=== PATIENT | male | born 1970 | race Caucasian/White ===

== ENCOUNTER 2016-04-15 22:06 | Inpatient (IN) | payer BC, MEDICARE, OTHER ==
--- NOTE | 2016-04-15 22:15 | PDOC ---
History of Present Illness - General Chief Complaint: Cold Symptoms Stated Complaint: FEVER,MALAISE History Source: Patient Exam Limitations: No Limitations - History of Present Illness Initial Comments: 04/15/16 22:28 45 yo male quit drinking a week or two ago, has had a fever of 101 to 103 for the past few days with cough and congestion, body aches and nasal congestion. did not get a flu shot this year. Also complains of waking up drenched in sweat and shivering the past two nights. Tonight he had a bit of a headache and a right earache with ringing in the ear. Timing/Duration: 1 week Severity: moderate Modifying Factors: improves with: other (motrin helps alot.) Associated Symptoms: reports: cough, diaphoresis, fever/chills, headaches, malaise, weakness Past History - Past Medical History Allergies/Adverse Reactions: Allergies Allergy/AdvReac Type Severity Reaction Status Date / Time No Known Allergies Allergy Verified 02/03/16 19:04 Home Medications: Ambulatory Orders Ibuprofen 600 mg PO PRN PRN 04/15/16 Anemia: No Asthma: No Cancer: No Cardiac Disorders: No CVA: No COPD: No CHF: No Dementia: No Diabetes: No GI Disorders: No Disorders: No HTN: Yes Hypercholesterolemia: No Kidney Stones: No Liver Disease: No Suicide Attempt (Hx): No Seizures: No Thyroid Disease: No - Surgical History Abdominal Surgery: Yes (LAP BAND) Appendectomy: No Cardiac Surgery: No Cholecystectomy: No GI Surgery: Yes (hernia repair) Lung Surgery: No Neurologic Surgery: No Orthopedic Surgery: Yes (ARTHROSCOPY LEFT SHOULDER) - Reproductive History Testicular Surgery: No - Immunization History Immunization Up to Date: Yes - Psycho/Social/Smoking Cessation Hx Anxiety: Yes Suicidal Ideation: No Smoking Status: No Smoking History: Never smoked Have you smoked in the past 12 months: Yes Number of Cigarettes Smoked Daily: 0 Cigars Per Day: 0 'Breaking Loose' booklet given: 08/04/15 Hx Alcohol Use: Yes Drug/Substance Use Hx: No Substance Use Type: Alcohol Hx Substance Use Treatment: Yes Review of Systems - Review of Systems Constitutional: Yes: See HPI HEENTM: Yes: See HPI, Ear Pain, Other (scleral icterus and jaundice which is improving since he quit drinking) Respiratory: Yes: See HPI, Cough Cardiac (ROS): No: Symptoms Reported ABD/GI: No: Symptoms Reported : No: Symptoms Reported Musculoskeletal: Yes: See HPI Neurological: No: Symptoms reported Psychiatric: No: Anxiety, Depression Endocrine: No: Symptoms Reported Hematologic/Lymphatic: No: Symptoms Reported All Other Systems: Reviewed and Negative *Physical Exam - Vital Signs Last Vital Signs Temp Pulse Resp BP Pulse Ox 99.7 F H 16 L 16 121/75 98 04/15/16 22:10 04/15/16 22:10 04/15/16 22:10 04/15/16 22:10 04/15/16 22:10 - Physical Exam Comments: 04/15/16 22:32 sweaty, cool clammy skin, jaundice and scleral icterus. General Appearance: No: Apparent Distress HEENT: positive: Pharynx Normal, Pharyngeal Erythema. negative: Tonsillar Exudate Neck: positive: Trachea midline, Supple Respiratory/Chest: positive: Lungs Clear, Normal Breath Sounds Cardiovascular: positive: Regular Rhythm, Regular Rate. negative: JVD Gastrointestinal/Abdominal: positive: Normal Bowel Sounds, Flat, Soft, Hepatomegaly. 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 negative: Facial Droop, Confused ED Treatment Course - LABORATORY CBC & Chemistry Diagram: 04/15/16 22:20 04/15/16 22:20 Medical Decision Making - Medical Decision Making Clinical indication: Pancreatitis. Status post lap band in 2008. Findings: The lung bases are clear. The liver has a slightly nodular contour which may indicate parenchymal disease. Cholelithiasis is noted. The gallbladder is otherwise suboptimally distended. The spleen is enlarged. The pancreas has a normal appearance. No peripancreatic inflammatory changes are seen. The adrenal glands are unremarkable. Focal hypoattenuation is noted in the mid left kidney best seen on delayed postcontrast images with stranding and infiltration in the perinephric fat. Left renal cysts also noted. The kidneys have an otherwise normal in appearance and enhance symmetrically. There is no evidence of urinary tract obstruction. The gastrointestinal tract does not appear obstructed. No thickened or dilated bowel is seen. A left and appears to be in satisfactory position. There is no mesenteric infiltration. Increased number of tortuous vessels is noted in the omentum which may represent portosystemic shunts are normal appendix noted. There is a small amount of ascites in the pelvis. The urinary bladder appears thickwalled despite suboptimal distention. The prostate is unremarkable. A small fat-containing right inguinal hernia is noted. No abdominal or pelvic adenopathy is seen. No lytic or blastic destructive osseous lesions are seen. Impression: Left and in satisfactory position. Slightly nodular contour of liver with splenomegaly and increased number of tortuous vessels in the omentum. These findings are indicative of cirrhosis and portal hypertension. Cholelithiasis noted. Small amount of ascites noted in the pelvis. Area of focal decreased attenuation in the mid left kidney as above with stranding and infiltration in the perinephric fat. This appearance is consistent with focal pyelonephritis. Correlate for left CV angle tenderness. THIS DOCUMENT HAS BEEN ELECTRONICALLY SIGNED Neil Olsen M.D. 04/16/2016 00:30 JACKI Cuellar Please call Imaging [facility]atering Cook [phone]) with questions. 04/16/16 00:57 04/16/16 01:[address] Silva, will admit to ICU for Sepsis, Cholangitis, Pyelonephritis Will Start Zosyn and obtain urine, also a small dose of ativan and another liter of fluid. *DC/Admit/Observation/Transfer Diagnosis at time of Disposition: Alcoholism, Pyelonephritis, Hyponatremia, Cholangitis Cirrhosis Qualifiers: Hepatic cirrhosis type: alcoholic cirrhosis Ascites presence: with ascites Qualified Code(s): K70.31 - Alcoholic cirrhosis of liver with ascites Sepsis Qualifiers: Sepsis type: sepsis due to unspecified organism Qualified Code(s): A41.9 - Sepsis, unspecified organism Pancreatitis Qualifiers: Chronicity: acute Pancreatitis type: biliary Qualified Code(s): K85.1 - Biliary acute pancreatitis - Discharge Dispostion Condition at time of disposition: Improved Admit: Yes - Referrals Referrals: Neil Rush MD [Primary Care Provider] -
[2016-04-15] MEDS ORDERED: SODIUM CHLORIDE 1,000 ML IV STA ×2 (22:17→23:19)
[2016-04-15] MEDS ORDERED: KETOROLAC TROMETHAMINE 30 MG/1 ML VIAL IVPUSH ONE (22:18)
[2016-04-15] MEDS ORDERED: KETOROLAC TROMETHAMINE 30 MG/1 ML VIAL ONE (22:32)
[2016-04-15 22:49] LABS: MCH 33.4 pg (25.7-33.7); MCHC 33.5 g/dl (32.0-35.9); MEAN CELL VOLUME 99.5 fl (80-96); MEAN PLT VOLUME 9.4 fl (7.5-11.1); PLATELET COUNT 145 K/MM3 (134-434); RDW 14.5 % (11.9-15.9); WHITE BLOOD COUNT 10.6 K/mm3 (4.0-10.0)
[2016-04-15 23:04] LABS: INR 1.9 (0.82-1.09); PROTHROMBIN TIME (PATIENT) 20.7 SEC (10.2-13.0)
[2016-04-15 23:09] LABS: ALBUMIN 2.4 g/dl (3.5-5.0); ALK PHOS 134 U/L (32-92); ANION GAP 9 (8-16); BILIRUBIN,TOTAL 3.7 mg/dl (0.2-1.0); CALCIUM 7.7 mg/dl (8.4-10.2); CO2 23 mmol/L (22-28); CREATININE 0.8 mg/dl (0.6-1.3); GLUCOSE,RANDOM 143 mg/dl (74-106); SGOT/AST 144 U/L (10-42); SGPT/ALT 60 U/L (10-40); TOT PROT 6.2 g/dl (6.4-8.3)
[2016-04-15] MEDS ORDERED: POTASSIUM CHLORIDE TABS 20 MEQ TABLET.ER (FP) PO ONE ×2 (23:19→23:20)
[2016-04-16 00:03] LABS: METAMYELOCYTE 3 % (0-2); SMUDGE CELLS MODERATE
[2016-04-16 00:04] LABS: ANISOCYTOSIS 2+; PLATELET COMMENT2 SLT PLT CLUMPING; PLATELET ESTIMATE ADEQUATE (NORMAL); TEAR DROP CELLS 1+
[2016-04-16] MEDS ORDERED: PIPERACILLIN/TAZOB 3.375 GM/50 ML PRE-DOCKED IV ONE (01:02)
[2016-04-16] MEDS ORDERED: PIPERACILLIN/TAZOBACTAM 3.375 GM VIAL IVPB ONE (01:06)
[2016-04-16] MEDS ORDERED: SODIUM CHLORIDE 1,000 ML IV SCH (01:30)
[2016-04-16] MEDS ORDERED: HEPARIN NA (PORCINE) 5,000 UNITS/ML 1ML VIAL SQ SCH (02:00)
[2016-04-16 02:09] LABS: URINE APPEARANCE CLEAR; URINE BILIRUBIN NEGATIVE (NEGATIVE); URINE COLOR YELLOW; URINE GLUCOSE (UA) NEGATIVE (NEGATIVE); URINE KETONE NEGATIVE (NEGATIVE); URINE NITRITE NEGATIVE (NEGATIVE); URINE PROTEIN NEGATIVE (NEGATIVE); URINE UROBILINOGEN 4.0 E.U/dl E.U./dl (0.2-1.0)
[2016-04-16 02:11] LABS: URINE BLOOD 2+ (NEGATIVE); URINE LEUK ESTERASE 3+ (NEGATIVE)
[2016-04-16 02:15] LABS: URINE BACTERIA FEW /hpf (NONE SEEN); URINE RBC 3 /hpf (0-3); URINE WBC 80 /hpf (3-5)
[2016-04-16 03:01] VITALS: BMI 34.0
[2016-04-16] MEDS ORDERED: PNEUMOC 13-VAL CONJ-DIP CRM/PF 0.5 ML DISP.SYRIN IM ONE (03:09)
[2016-04-16] MEDS ORDERED: HEPARIN NA (PORCINE) 5,000 UNITS/ML 1ML VIAL ONE (03:15)
[2016-04-16] MEDS: ACETAMINOPHEN 325 MG TABLET (FP) PO PRN ×2 (03:30→14:29)
--- NOTE | 2016-04-16 03:31 | HP ---
CHIEF COMPLAINT: fever, chills, sweats PCP: HISTORY OF PRESENT ILLNESS: This is a 45 year old male with a past medical history of HTN (no longer on meds ), lap band, ventral hernia reapir, L shoulder arthroscopy who presented to the ED at [facility] with fever 101-103 x several days with cough, congestion, headache. Denies dysuria, + urgency, decreased urine flow. Denies N/V/D. Upon exam, pt with c/o persistent headache. ER course was notable for: (1) WBC 10.6, Na 121, K 3.0 (2) lactic acid 3.055 (3) elevated LFTs, lipase 111 Recent Travel: pt denies PAST MEDICAL HISTORY: HTN, formerly on norvasc PAST SURGICAL HISTORY: lap band 2010 ventral hernia repair with mesh L shoulder arthroscopy Social History: Smoking: Pt denies Alcohol: Pt reports 12 pack heineken daily or a few beers with a fifth of vodka daily, quit 3 weeks ago, multiple attempts to quit in pastwith inpatient hospitalizations Drugs: pt denies Family History: mother alive and well father with liver disease/ETOH 1 sister, 1 brother no PMH, alive and well. Allergies No Known Allergies Allergy (Verified 02/03/16 19:04) HOME MEDICATIONS: 3 Medication Instructions Recorded Ibuprofen 600 mg PO PRN PRN 04/15/16 REVIEW OF SYSTEMS CONSTITUTIONAL: Present: fever, chills, diaphoresis, generalized weakness, malaise Absent: loss of appetite, weight change HEENT: Absent: rhinorrhea, nasal congestion, throat pain, throat swelling, difficulty swallowing, mouth swelling, ear pain, eye pain, visual changes CARDIOVASCULAR: Absent: chest pain, syncope, palpitations, irregular heart rate, lightheadedness , peripheral edema RESPIRATORY: Present: cough Absent: shortness of breath, dyspnea with exertion, orthopnea, wheezing, stridor , hemoptysis GASTROINTESTINAL: Absent: abdominal pain, abdominal distension, nausea, vomiting, diarrhea, constipation, melena, hematochezia GENITOURINARY: Present: urgency, hesitancy Absent: dysuria, frequency, hematuria, flank pain, genital pain MUSCULOSKELETAL: Absent: myalgia, arthralgia, joint swelling, back pain, neck pain SKIN: Absent: rash, itching, pallor HEMATOLOGIC/IMMUNOLOGIC: Absent: easy bleeding, easy bruising, lymphadenopathy, frequent infections ENDOCRINE: Absent: unexplained weight gain, unexplained weight loss, heat intolerance, cold intolerance NEUROLOGIC: Absent: headache, focal weakness or paresthesias, dizziness, unsteady gait, seizure, mental status changes, bladder or bowel incontinence PSYCHIATRIC: Absent: anxiety, depression, suicidal or homicidal ideation, hallucinations. PHYSICAL EXAMINATION Vital Signs - 24 hr 3 04/15/16 04/16/16 04/16/16 22:10 01:15 02:57 Temperature 99.7 F H 98.1 F 98.6 F Pulse Rate 16 L 92 H Pulse Rate [ 86 Radial] Respiratory 16 16 18 Rate Blood Pressure 121/75 99/65 Blood Pressure 102/63 [Arm] O2 Sat by Pulse 98 96 Oximetry (%) 3 04/16/16 04/16/16 03:30 04:30 Temperature Pulse Rate 88 Pulse Rate [ Radial] Respiratory 18 18 Rate Blood Pressure 83/54 Blood Pressure [Arm] O2 Sat by Pulse 96 Oximetry (%) GENERAL: Awake, alert, and fully oriented, in no acute distress. HEAD: Normal with no signs of trauma. EYES: Pupils equal, round and reactive to light, extraocular movements intact, sclera anicteric, conjunctiva clear. No lid lag. EARS, NOSE, THROAT: Ears normal, nares patent, oropharynx clear without exudates. Moist mucous membranes. NECK: Normal range of motion, supple without lymphadenopathy, JVD, or masses. LUNGS: Breath sounds equal, clear to auscultation bilaterally. No wheezes, and no crackles. No accessory muscle use. HEART: Regular rate and rhythm, normal S1 and S2 without murmur, rub or gallop. ABDOMEN: Soft, nontender, not distended, normoactive bowel sounds, no guarding, no rebound, no masses. No hepatomegaly or splenomegaly. MUSCULOSKELETAL: Normal range of motion at all joints. No bony deformities or tenderness. No CVA tenderness. UPPER EXTREMITIES: 2+ pulses, warm, well-perfused. No cyanosis. No clubbing. Cap refill <2 seconds. No peripheral edema. LOWER EXTREMITIES: 2+ pulses, warm, well-perfused. No calf tenderness. No peripheral edema. NEUROLOGICAL: Cranial nerves II-XII intact. Normal speech. Normal gait. PSYCHIATRIC: Cooperative. Good eye contact. Appropriate mood and affect. SKIN: Warm, dry, normal turgor, no rashes or lesions noted. Laboratory Results - last 24 hr 3 04/15/16 04/15/16 04/15/16 22:20 22:20 22:20 WBC 10.6 H RBC 3.65 L Hgb 12.2 D Hct 36.3 D MCV 99.5 H MCHC 33.5 RDW 14.5 D Plt Count 145 D MPV 9.4 D Neutrophils % 37.0 L D Lymphocytes % 13.0 D Monocytes % 26.0 H D Band Neutrophils 17.0 H Metamyelocytes 3 H Reactive Lymphocytes 4 Smudge Cells Moderate Platelet Estimate Adequate Platelet Comment Slt plt clumping Anisocytosis 2+ Tear Drop Cells 1+ INR 1.90 H Sodium 121 L* Potassium 3.0 L Chloride 89 L Carbon Dioxide 23 Anion Gap 9 BUN 8 Creatinine 0.8 D Creat Clearance w eGFR > 60 Random Glucose 143 H D Lactic Acid Calcium 7.7 L--corrected 9.0 Magnesium Total Bilirubin 3.7 H D Direct Bilirubin AST 144 H D ALT 60 H D Alkaline Phosphatase 134 H D Total Protein 6.2 L D Albumin 2.4 L D Lipase Urine Color Urine Appearance Urine pH Ur Specific [place] Urine Protein Urine Glucose (UA) Urine Ketones Urine Blood Urine Nitrite Urine Bilirubin Urine Urobilinogen Ur Leukocyte Esterase Urine RBC Urine WBC Ur Epithelial Cells Urine Bacteria Alcohol, Quantitative 3 04/15/16 04/15/16 04/16/16 04/16/16 22:20 22:20 01:00 01:25 WBC RBC Hgb Hct MCV MCHC RDW Plt Count MPV Neutrophils % Lymphocytes % Monocytes % Band Neutrophils Metamyelocytes Reactive Lymphocytes Smudge Cells Platelet Estimate Platelet Comment Anisocytosis Tear Drop Cells INR Sodium Potassium Chloride Carbon Dioxide Anion Gap BUN Creatinine Creat Clearance w eGFR Random Glucose Lactic Acid 3.055 H* 1.559 Calcium Magnesium 1.4 L Total Bilirubin Direct Bilirubin AST ALT Alkaline Phosphatase Total Protein Albumin Lipase 111 H Urine Color Yellow Urine Appearance Clear Urine pH 7.0 Ur Specific [place] 1.027 Urine Protein Negative Urine Glucose (UA) Negative Urine Ketones Negative Urine Blood 2+ H Urine Nitrite Negative Urine Bilirubin Negative Urine Urobilinogen 4.0 e.u/dl Ur Leukocyte Esterase 3+ H Urine RBC 3 Urine WBC 80 Ur Epithelial Cells Few Urine Bacteria Few Alcohol, Quantitative < 5.0 CXR: report pending CT abd/pelvis: Impression: Left and in satisfactory position. Slightly nodular contour of liver with splenomegaly and increased number of tortuous vessels in the omentum. These findings are indicative of cirrhosis and portal hypertension. Cholelithiasis noted. Small amount of ascites noted in the pelvis. Area of focal decreased attenuation in the mid left kidney as above with stranding and infiltration in the perinephric fat. This appearance is consistent with focal pyelonephritis. Correlate for left CV angle tenderness. ASSESSMENT/PLAN: 45yM with PMH HTN, ETOH, lap band, hernia repair presents with several day h/o fever, cough, congestion, chills, diaphoresis. CT revealed pyelonephritis and cirrhosis with portal HTN and cholelithiasis. sepsis secondary to Pyelonephritis - cont zosyn - follow urine culture, narrow antibiotics accordingly Hyponatremia - pt reported drinking 10-12L of seltzer water daily for past 2-3 days - received NS 3 L in ED, repeat BMP now - correction of 10-12mEq daily - fluid restriction - follow BMP q4-6H Lactic acidosis - resolved with IVF. Cirrhosis with portal HTN and coagulopathy and splenomegaly - GI consult - avoid hepatotoxic agents - dc heparin as INR is 1.9, monitor INR - counseled regarding alcohol use Cholelithiasis - GI consult, may need MRCP DVT PPX - defer heparin SC given INR 1.9, repeat INR in AM FEN - fluid restriction - repeat BMP now - NPO except meds for now Dispo: Pt currently requires close monitoring in the ICU. Visit type - Emergency Visit Emergency Visit: Yes ED Registration Date: 04/15/16 Care time: The patient presented to the Emergency Department on the above date and was hospitalized for further evaluation of their emergent condition. - New Patient This patient is new to me today: Yes Date on this admission: 04/16/16 - Critical Care Critical Care patient: Yes Total Critical Care Time (in minutes): 40 Critical Care Statement: The care of this patient involved high complexity decision making to prevent further life threatening deterioration of the patient 's condition and/or to evalute & treat vital organ system(s) failure or risk of failure.
--- NOTE | 2016-04-16 03:41 | CONSULT ---
Consult Consult Specialty:: Pulm/CCM - History of Present Illness Chief Complaint: Headache, fever History of Present Illness: 45yom with PMHx of ETOH abuse with multiple admissions for detox and withdrawal , Obesity s/p gastric banding who presents to [place] ER with c/o 6 days of fevers as high as 102F, chills, headache and excessive diaphoresis. He states that despite motrin and fluids fever was persistent so he decided to seek medical treatment. In the ED VS T 101F, HR 80, BP 121/75, RR16, O2sat 98% on room air and in NAD. As per report he c/o headache and increasing urgency with poor urine flow. He denied syncope, malaise, cough , SOB, abd pain, n/v/d, sick contact. Labs notable for Na 121, WBC 10.6 with 17% Bands, Lipase 111, Lact 3, Bili 3.7 AST/ ALT/Alk phos 144/160/134. He was cultured. Flu swab neg. CT abd/pelvis w/ contrast done re c/f pancreatitis showed + gallstones w/o e/f cholecystitis, e/ o cirrhosis, splenamegaly and Lt pyelonephritis. CXR was clear. He was given NS bolus 3L, started on ZosynIV and transferred to ICU for management of hyponatremia. In ICU he was received AAOx3 and in good spirits. T 98.3, BP 99/65, HR 88, RR 22, O2 sat 100% on rm air. Pt. states that in the last 3 days have been drinking ~10L/d of selzer water and has had poor intake of solid food. - History Source History Provided By: Patient Limitations to Obtaining History: No Limitations - Past Medical History Cardio/Vascular: Yes: HTN Pulmonary: Yes: Sleep Apnea Psych: Yes: Addictions (alcohol) Musculoskeletal: Yes: Chronic low back pain - Past Surgical History Past Surgical History: Yes: Arthrosocopy (left shoulder, right knee), Bariatric Surgery (gastric band) - Alcohol/Substance Use Hx Alcohol Use: Yes - Smoking History Smoking history: Never smoked Have you smoked in the past 12 months: Yes Aproximately how many cigarettes per day: 0 - Social History Usual Living Arrangement: With Significant Other ADL: Independent Occupation: works in [employer] History of Recent Travel: No Home Medications - Allergies Allergies/Adverse Reactions: Allergies Allergy/AdvReac Type Severity Reaction Status Date / Time No Known Allergies Allergy Verified 02/03/16 19:04 - Home Medications Home Medications: Ambulatory Orders Ibuprofen 600 mg PO PRN PRN 04/15/16 Family Disease History - Family Disease History Family History: Unremarkable Family Disease History: Other: Father (alcohol) Review of Systems - Review of Systems Constitutional: reports: Chills, Diaphoresis, Fever, Loss of Appetite Eyes: reports: No Symptoms HENT: reports: No Symptoms Neck: reports: No Symptoms Cardiovascular: reports: No Symptoms Respiratory: reports: No Symptoms Gastrointestinal: reports: No Symptoms Genitourinary: reports: Frequency, Urgency, Other (low flow) Musculoskeletal: reports: No Symptoms Integumentary: reports: No Symptoms Neurological: reports: Headache Endocrine: reports: Excessive Sweating, Increased Thirst Hematology/Lymphatic: reports: No Symptoms Psychiatric: reports: Other (ETOH dependence) Physical Exam Vital Signs: Vital Signs Temperature 98.6 F 04/16/16 02:57 Pulse Rate 92 H 04/16/16 02:57 Respiratory Rate 18 04/16/16 02:57 Blood Pressure 99/65 04/16/16 02:57 O2 Sat by Pulse Oximetry (%) 96 04/16/16 01:15 Constitutional: Yes: Obese Eyes: Yes: Sclera Icterus HENT: Yes: Normocephalic Neck: Yes: Supple Cardiovascular: Yes: Regular Rate and Rhythm Respiratory: Yes: CTA Bilaterally Gastrointestinal: Yes: Soft (slight wave, NT to palpation), Abdomen, Obese Renal/: Yes: WNL Breast(s): Yes: WNL Musculoskeletal: Yes: WNL Extremities: Yes: Other (WWP) Edema: No Peripheral Pulses WNL: Yes Integumentary: Yes: WNL Neurological: Yes: Alert, Oriented ...Motor Strength: WNL Psychiatric: Yes: Alert, Oriented Imaging - Results Chest X-ray: Image Reviewed (Clear) X-ray: Image Reviewed Cat Scan: Report Reviewed Assessment/Plan 45yo man with PMHx of ETOH abuse with multiple admissions for detox and withdrawal, Obesity s/p gastric banding who presents to [place] ER with c/ o 6 days of fevers as high as 102F, chills, headache and excessive diaphoresis. Admitted with c/f sepsis 2/2 pyelonephritis with c/f pancreatitis and cholecystitis. Transferred to ICU for severe hyponatremia poss 2/2 polydipsia with report of ingestion of 10L of seltzer water/day with symptoms of headache. Ccb liver cirrhosis with portal hypertension and ascites. Renal/Endocrine: severe symptomatic hyponatremia m/l 2/2 polydipsia +/- hypervolemic hyponatremia 2/2 cirrhosis -Restrict free wateGI: - BMPq4 -f/u serum and urine osm -NS IVF to correct Na @0.5meq/l/h -Limit correction to 10-12 meq/l/d -Consider albumin infusion with cirrhosis -Neuro checks Sepsis 2/2 m/l pyelonephritis as noted on CT and report of frequency and urgency -Monitor temps and WBC -f/u mendes culture -Cont Zosyn for broad coverage -Tailor antib to culture results -Fluid boluses as needed GI: Cirrhosis; cholelithiasis noted on CT with no e/o cholecystitis; c/f gallstone pancreatitis; Lipase elevated but no c/o abdominal pain at this time -GI consult -Monitor LFTS -Trend lipase -Abd US with Doppler study Proph Hep SQ
[2016-04-16 04:23] LABS: MCH 33.5 pg (25.7-33.7); MCHC 33.6 g/dl (32.0-35.9); MEAN CELL VOLUME 99.6 fl (80-96); MEAN PLT VOLUME 9.5 fl (7.5-11.1); PLATELET COUNT 153 K/MM3 (134-434); WHITE BLOOD COUNT 7.9 K/mm3 (4.0-10.0)
[2016-04-16 04:48] LABS: ALBUMIN 2.2 g/dl (3.4-5.0); ANION GAP 8 (8-16); BILIRUBIN,DIRECT 2.3 mg/dL (0.0-0.2); BILIRUBIN,TOTAL 2.9 mg/dL (0.2-1.0); CALCIUM 7.1 mg/dL (8.5-10.1); CO2 27 mmol/L (21-32); CREATININE 0.7 mg/dL (0.7-1.3); GLUCOSE,RANDOM 128 mg/dL (74-106); SGOT/AST 95 U/L (15-37); SGPT/ALT 58 U/L (12-78); TOT PROT 5.8 g/dl (6.4-8.2)
[2016-04-16 04:49] LABS: ALK PHOS 137 U/L (45-117)
[2016-04-16] MEDS ORDERED: MAGNESIUM SULF 50% (8.12 MEQ/2 ML-1 GM VIAL) IVPB ONE ×2 (05:00→06:21)
[2016-04-16] MEDS ORDERED: POTASSIUM CHLORIDE TABS 20 MEQ TABLET.ER (FP) PO ONE ×2 (05:00→12:15)
[2016-04-16 05:34] LABS: OSMOLALITY,SERUM 268 mosm/kg (278-305)
[2016-04-16] MEDS ORDERED: KCL 10 MEQ IVPB 100 ML IVPB SCH (06:30)
[2016-04-16] MEDS ORDERED: PIPERACILLIN/TAZOB 3.375 GM 3.375 GM in DEXTROSE 5%-WATER - 50 ML IVPB ONE ×2 (07:00→16:16)
[2016-04-16] MEDS ORDERED: PIPERACILLIN/TAZOB 3.375 GM 50 ML IVPB ONE ×3 (07:00→16:16)
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
[2016-04-16 08:45] LABS: CALCIUM 7.4 mg/dL (8.5-10.1)
[2016-04-16 08:48] LABS: CREATININE 0.7 mg/dL (0.7-1.3)
[2016-04-16] MEDS ORDERED: INFLUENZA VACCINE 45 MCG/0.5 ML (MDV 16-17) IM ONE (09:00)
[2016-04-16] MEDS ORDERED: PT OWN MED DRAWER 7, Y5N ONE ×2 (09:15→09:39)
[2016-04-16] MEDS ORDERED: PANTOPRAZOLE SODIUM 100 ML IVPB SCH (10:00)
[2016-04-16] MEDS ORDERED: CEFTRIAXONE 100 ML IVPB SCH (10:00)
[2016-04-16] MEDS ORDERED: METRONIDAZOLE 500 MG PREMIXED 100 ML IVPB SCH (10:00)
[2016-04-16] MEDS ORDERED: POTASSIUM CHLORIDE TABS 20 MEQ TABLET.ER (FP) PO SCH (10:00)
[2016-04-16] MEDS ORDERED: MUPIROCIN 2% TOPICAL OINTMENT FOR DECOLONIZATION NS SCH ×3 (10:00→22:00)
--- NOTE | 2016-04-16 10:41 | PN ---
Teaching Attending Note Name of Resident: Marilia Reid ATTENDING PHYSICIAN STATEMENT I saw and evaluated the patient. I reviewed the resident's note and discussed the case with the resident. I agree with the resident's findings and plan as documented. SUBJECTIVE: headache gone, feels much better noted some difficulty urinating - initiating stream prior to admission took some amox and ibuprofen at home etoh user- has been a little yellow for years- no etoh for one month no travel, no sick contacts hiv negative one year ago OBJECTIVE: Vital Signs Period Temp Pulse Resp BP Sys/Sarmiento Pulse Ox Last 24 Hr 98.1 F-100.3 F 16-92 16-20 83-121/54-75 96-98 cor-rrr lungs clear abd soft,nt ext no edema multiple tattoos CBC, BMP 04/16/16 04:00 04/16/16 07:55 imaging reviewed ua +pyuria ASSESSMENT AND PLAN: sepsis syndrome fever- UTI (pyuria, ct scan, probable pyelo) abnl lfts- possible biliary sepsis- check sonogram- no abd pain to suggest pancreatitis rocephin/flagyl f/u cultues, f/u imaging electrolyte abnormalities improved check HIV
[2016-04-16 11:08] LABS: HIV 1 & 2 AB NEGATIVE; HIV 1 AGp24 NEGATIVE
--- NOTE | 2016-04-16 11:48 | PN ---
Progress Note, Physician History of Present Illness: patient seen and examined feels much better no issues overnight clinically improved - Current Medication List Current Medications: Active Medications Acetaminophen (Tylenol -) 650 mg PO Q6H PRN PRN Reason: FEVER OR PAIN Last Admin: 04/16/16 03:30 Dose: 650 mg Chlorhexidine Gluconate (Hibiclens For Decolonization -) 1 applic TP HS [facility] Pantoprazole Sodium (Protonix 40mg Ivpb (Pre-Docked)) 100 mls @ 200 mls/hr IVPB DAILY [facility] Last Admin: 04/16/16 09:24 Dose: 200 mls/hr Ceftriaxone Sodium (Rocephin 2gm Ivpb (Pre-Docked)) 100 mls @ 200 mls/hr IVPB DAILY [facility] Last Admin: 04/16/16 09:32 Dose: 200 mls/hr Metronidazole (Flagyl 500mg Premixed Ivpb -) 100 mls @ 100 mls/hr IVPB Q8H-IV [facility] Last Admin: 04/16/16 09:41 Dose: 100 mls/hr Mupirocin (Bactroban Ointment (For Decolonization) -) 1 applic NS BID [facility] Stop: 04/21/16 09:59 Last Admin: 04/16/16 09:24 Dose: 1 applic Potassium Chloride (K-Dur -) 20 meq PO DAILY [facility] Last Admin: 04/16/16 09:23 Dose: 20 meq - Objective Vital Signs: Vital Signs Temperature 100.3 F H 04/16/16 10:12 Pulse Rate 90 04/16/16 10:12 Respiratory Rate 17 04/16/16 10:12 Blood Pressure 100/68 04/16/16 10:12 O2 Sat by Pulse Oximetry (%) 97 04/16/16 09:19 Constitutional: Yes: Well Nourished, No Distress Eyes: Yes: Conjunctiva Clear, EOM Intact HENT: Yes: WNL, Atraumatic, Normocephalic Neck: Yes: Supple Cardiovascular: Yes: WNL, Regular Rate and Rhythm, S1, S2 Respiratory: Yes: WNL, Regular, CTA Bilaterally Gastrointestinal: Yes: Normal Bowel Sounds, Soft Genitourinary: No: CVA Tenderness - Left, CVA Tenderness - Right Neurological: Yes: WNL, Alert, Oriented ...Motor Strength: WNL Labs: CBC, BMP 04/16/16 04:00 04/16/16 07:55 INR, PTT INR 1.90 (0.82-1.09) H 04/15/16 22:20 - ....Imaging Chest X-ray: Report Reviewed, Image Reviewed Cat Scan: Report Reviewed, Image Reviewed Assessment/Plan 45yo man with PMHx of ETOH abuse with multiple admissions for detox and withdrawal, Obesity s/p gastric banding who presents to [place] [facility] with c/ o 6 days of fevers as high as 102F, chills, headache and excessive diaphoresis. Admitted with c/f sepsis 2/2 pyelonephritis with c/f pancreatitis and cholecystitis. Transferred to ICU for severe hyponatremia poss 2/2 polydipsia with report of ingestion of 10L of seltzer water/day with symptoms of headache. Ccb liver cirrhosis with portal hypertension and ascites. Sepsis secondary to pyelonephritis WBC count normalized Afebrile Asymptomatic much improved continue ceftriaxone/flagyl ID consult noted and appreciated stop zosyn f/u cultures Renal/Endocrine:hyponatremia secondary increased fluid intake. patient with hypervolemic hypernatremia due to dilutional effect and cirrhosis this likely happened very acutely Sodium correcting very rapidly on its own fluid restrict patient to 1L [id number] Neuro checks Heme: Coagulopathy-likely from hypoprofusion secondary to sepsis and a combination of cirrhosis Monitor CBC and coags Hold Heparin SQ re elevated INR Normal transfusion threshold recheck INR GI: Cirrhosis. CT scan ABD noted US ABD pending unlikely ro be pancreatitis GI consult pending Monitor LFTs History of alcohol abuse not drinking at this time outpt follow up HTN: not on meds BP stable PPx: elevated INR will recheck PT/INR SCDs no GI Ppx indicated no deconditioning issues FEN: 1L fluid restriction hyponatremia plan as above hypokalemia replete K NPO pending ABD US start diet once done Transfer to Med/Surg
--- NOTE | 2016-04-16 11:52 | PN ---
Teaching Attending Note Name of Resident: Preston Tao ATTENDING PHYSICIAN STATEMENT I saw and evaluated the patient. I reviewed the resident's note and discussed the case with the resident. I agree with the resident's findings and plan as documented.
--- NOTE | 2016-04-16 12:45 | CONSULT ---
Consult Consult Specialty:: GI Referred by:: Hospitalists Reason for Consultation:: Cirrhosis - History of Present Illness Chief Complaint: I was having fevers for a few days History of Present Illness: 45M admissted for evaluation of fevers. He states that he has been having fevers over the last few days upt to 103. he was taking ibuprofen. He denies abdominal pain, nausea, vomiting or diarrhea. He does describes urinary urgency and hesitancy. I was called to evaluated given "cirrhosis". In review of the [facility] system, Mr. Blount has had multiple detox admissions. His liver chemistries from at least 2013 have been elevated in a similar pattern. He does not recall ever having been seen by a research project manager / appeals specialist. he does recall that he has been advised by his PMD Dr. Rush that he needs to stop drinking. He continues to drink but has switched to beer (2 6 PPD). He says that he last drank about a week ago. His father is an alcoholic. Imaging studies included CT scan that raised a question of inflammatory changes along the right colon / cecum, changes c/w portal HTN / cirrhosis as well as ? previous inflammatory changes about the left kidney. Abdominal US revealed cholelithiasis and hepatosplenomegaly. He had a positive UA and is being treated for a possible ascending UTI. - History Source History Provided By: Patient - Past Medical History Cardio/Vascular: Yes: HTN Pulmonary: Yes: Sleep Apnea Hepatobiliary: Yes: Cirrhosis Psych: Yes: Addictions (alcohol) Musculoskeletal: Yes: Chronic low back pain - Past Surgical History Past Surgical History: Yes: Arthrosocopy (left shoulder, right knee), Bariatric Surgery (gastric band) Additional Surgical History: ventral hernia repair - Alcohol/Substance Use Hx Alcohol Use: Yes Number of Drinks Daily: 12 History of Substance Use: reports: None - Smoking History Smoking history: Never smoked Have you smoked in the past 12 months: Yes Aproximately how many cigarettes per day: 0 - Social History Usual Living Arrangement: With Significant Other ADL: Independent 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 Place of : [facility] History of Recent Travel: No Home Medications - Allergies Allergies/Adverse Reactions: Allergies Allergy/AdvReac Type Severity Reaction Status Date / Time No Known Allergies Allergy Verified 02/03/16 19:04 - Home Medications Home Medications: Ambulatory Orders Ibuprofen 600 mg PO PRN PRN 04/15/16 Family Disease History - Family Disease History Family Disease History: Other: Father (Alive: 65 alcoholic), Mother (Alive: 62: healthy), Brother (Alive: Healthy), Sister (Alive: Healthy), Son (Healthy), Daughter (Healthy) Other Family History: No family history of colorectal cancer or other GI malignancy Review of Systems - Review of Systems Constitutional: reports: Diaphoresis, Fever Cardiovascular: denies: Chest Pain Respiratory: denies: SOB Gastrointestinal: denies: Abdominal Pain, Diarrhea, Melena, Nausea, Rectal Bleeding, Vomiting Genitourinary: reports: Frequency Physical Exam-GI Vital Signs: Vital Signs Temperature 99.8 F H 04/16/16 12:31 Pulse Rate 95 H 04/16/16 12:31 Respiratory Rate 16 04/16/16 12:31 Blood Pressure 104/66 04/16/16 12:31 O2 Sat by Pulse Oximetry (%) 97 04/16/16 09:19 Constitutional: Yes: Calm Eyes: Yes: Sclera Icterus (mild) Cardiovascular: Yes: Regular Rate and Rhythm Respiratory: Yes: Regular Gastrointestinal Inspection: Yes: Scars (midlline horizontal surgical scar cephalad to umbilicus), Other (lap band port palpable in upper abdomen). No: Distention ...Auscultate: Yes: Normoactive Bowel Sounds ...Palpate: Yes: Hepatomegaly. No: Tenderness ...Percussion: No: Tympanitic Edema: Yes (trace LE edema) Integumentary: Yes: Tattoos (X 3) Neurological: Yes: Alert, Oriented. No: Asterixis Labs: CBC, BMP 04/16/16 04:00 04/16/16 07:55 INR, PTT INR 1.90 (0.82-1.09) H 04/15/16 22:20 Hepatic Panel Total Bilirubin 2.9 mg/dL (0.2-1.0) H D 04/16/16 04:00 Direct Bilirubin 2.3 mg/dL (0.0-0.2) H D 04/16/16 04:00 AST 95 U/L (15-37) H D 04/16/16 04:00 ALT 58 U/L (12-78) 04/16/16 04:00 Alkaline Phosphatase 137 U/L (45-117) H 04/16/16 04:00 Albumin 2.2 g/dl (3.4-5.0) L 04/16/16 04:00 Imaging - Results Cat Scan: Report Reviewed, Image Reviewed Ultrasound: Report Reviewed (No dilated ducts) Problem List - Problems (1) Cirrhosis Assessment/Plan: Liver chemistry abnormalities appear chronic in nature if you look back through the [facility] system He is devoid of RUQ pain I suspect that his LFT abnormality reflects his chronic alcohol induced liver disease and may have been worsened in the setting of systemic infection. I explained to Mr. Blount that he needs to completely abstain from alcohol consumption, otherwise he will likely from complications of liver disease. He will need Q6 month AFP/hepatic US to screen for hepatoma When acute issues are resolved, referral could be made to have him follow-up at [facility] liver transplant / hepatology department with Dr. Marla Gomez or Neil Logan. [phone] or the [facility] GI/Liver clinic [phone] Check Hepatitis Serologies for A/B/C MRCP to evaluate biliary tract Code(s): K74.60 - UNSPECIFIED CIRRHOSIS OF LIVER Qualifiers: Hepatic cirrhosis type: alcoholic cirrhosis Ascites presence: with ascites Qualified Code(s): K70.31 - Alcoholic cirrhosis of liver with ascites
[2016-04-16] MEDS ORDERED: ACETAMINOPHEN 325 MG TABLET (FP) PO PRN (16:16)
--- NOTE | 2016-04-16 16:33 | HOSP ---
Physical Examination Vital Signs: Vital Signs Temperature 101.6 F H 04/16/16 14:31 Pulse Rate 104 H 04/16/16 14:31 Respiratory Rate 25 H 04/16/16 14:31 Blood Pressure 113/66 04/16/16 14:31 O2 Sat by Pulse Oximetry (%) 97 04/16/16 09:19 Findings/Remarks: Subjective: The patient was seen and examined at the bedside, he reports feeling "feverish" but better than how he felt this morning. Current Medications Generic Name Dose Route Start Last Admin Trade Name Freq PRN Reason Stop Dose Admin Metronidazole 100 mls @ 100 mls/hr 04/16/16 18:00 Flagyl 500mg Premixed Ivpb - IVPB Q8H-IV [facility] Pantoprazole Sodium 100 mls @ 200 mls/hr 04/17/16 10:00 Protonix 40mg Ivpb (Pre-Docked) IVPB DAILY [facility] Ceftriaxone Sodium 100 mls @ 200 mls/hr 04/17/16 10:00 Rocephin 2gm Ivpb (Pre-Docked) IVPB DAILY [facility] Ibuprofen 400 mg 04/16/16 16:25 04/16/16 16:37 Motrin - PO 400 mg Q6H PRN Administration PAIN Potassium Chloride 20 meq 04/17/16 10:00 K-Dur - PO DAILY [facility] Objective: Vital Signs Period Temp Pulse Resp BP Sys/Sarmiento Pulse Ox Last 24 Hr 98.1 F-102.1 F 16-106 16-25 83-121/54-75 96-98 Physical Exam: General: NAD, A&Ox3 Lungs: CTA bilaterally Heart: Tachycardia, S1S2, no murmur Abd: Soft, non-tender, non-distended. Normoactive bowel sounds Ext: Multiple tattoos. 2+ DP/PT bilaterally. Neuro: CN 2-12 intact CBCD WBC 7.9 K/mm3 (4.0-10.0) D 04/16/16 04:00 RBC 3.43 M/mm3 (4.00-5.60) L 04/16/16 04:00 Hgb 11.5 GM/dL (11.7-16.9) L D 04/16/16 04:00 Hct 34.2 % (35.4-49) L 04/16/16 04:00 MCV 99.6 fl (80-96) H 04/16/16 04:00 MCHC 33.6 g/dl (32.0-35.9) 04/16/16 04:00 RDW 15.0 % (11.9-15.9) 04/16/16 04:00 Plt Count 153 K/MM3 (134-434) D 04/16/16 04:00 MPV 9.5 fl (7.5-11.1) D 04/16/16 04:00 CMP Sodium 135 mmol/L (136-145) L 04/16/16 07:55 Potassium 3.9 mmol/L (3.5-5.1) 04/16/16 07:55 Chloride 98 mmol/L (98-107) 04/16/16 07:55 Carbon Dioxide 28 mmol/L (21-32) 04/16/16 07:55 Anion Gap 9 (8-16) 04/16/16 07:55 BUN 5 mg/dL (7-18) L 04/16/16 07:55 Creatinine 0.7 mg/dL (0.7-1.3) 04/16/16 07:55 Creat Clearance w eGFR > 60 (>60) 04/16/16 04:00 Random Glucose 112 mg/dL (74-106) H 04/16/16 07:55 Calcium 7.4 mg/dL (8.5-10.1) L 04/16/16 07:55 Total Bilirubin 2.9 mg/dL (0.2-1.0) H D 04/16/16 04:00 AST 95 U/L (15-37) H D 04/16/16 04:00 ALT 58 U/L (12-78) 04/16/16 04:00 Alkaline Phosphatase 137 U/L (45-117) H 04/16/16 04:00 Total Protein 5.8 g/dl (6.4-8.2) L 04/16/16 04:00 Albumin 2.2 g/dl (3.4-5.0) L 04/16/16 04:00 Microbiology 04/15/16 22:20 Nasopharyngeal Swab Respiratory Virus Panel - Preliminary 04/15/16 22:20 Blood - Peripheral Venous Blood Culture - Preliminary Pending Organism 04/15/16 22:20 Nasopharyngeal Swab Influenza Types A,B Antigen (LIU) - Final 04/15/16 22:20 Nasopharyngeal Swab - Final Assessment: This is a 45 year old male with PMHx of alcohol abuse with multiple admissions for detox and withdrawal, obesity s/p gastric banding (2009), HTN, sleep apnea who presented to the ED with fever, chills, headache, diaphoresis and was admitted for further evaluation and management of his emergent condition. Plan: 1) ID: Severe sepsis 2/2 UTI/bacteremia - Lactic acidosis resolved - UA with 3+ leuks - F/u urine culture - Blood culture with one vial + for gram negative bacilli - Will continue Ceftriaxone - Continue Flagyl - Appreciate ID consult 2) GI: Liver cirrhosis - Elevated LFTs 2/2 chronic alcohol use - Will require q6 month AFP/hepatic ultrasound to screen for hepatoma - Elevated INR 2/2 liver dysfunction - F/u hepatitis serologies for A/B/C - F/u MRCP - Appreciate GI consult 3) F/E/N: - Sodium controlled diet - Monitor electrolytes 4) Prophylaxis: - Will hold all chemical anticoagulation 2/2 increased INR - SCDs bilaterally 5) Dispo: - Requires continued inpatient care CODE STATUS: FULL CODE Labs: CBC, BMP 04/16/16 04:00 04/16/16 07:55
[2016-04-16] MEDS: IBUPROFEN 400 MG TABLET (FP) PO PRN (16:37)
[2016-04-16] MEDS: METRONIDAZOLE 500 MG PREMIXED 100 ML IVPB SCH (17:30)
[2016-04-16] MEDS ORDERED: ZOLPIDEM TARTRATE 5 MG TABLET PO ONE (22:00)
[2016-04-16] MEDS ORDERED: CHLORHEXIDINE GLUCONATE 4% CLEANSER FOR DECOLONIZATION TP SCH ×3 (22:00)
[2016-04-17] MEDS: PIPERACILLIN/TAZOB 4.5 GM/100 ML PRE-DOCKED IVPB SCH ×3 (00:20→17:00)
[2016-04-17] MEDS: IBUPROFEN 400 MG TABLET (FP) PO PRN ×2 (01:45→13:20)
[2016-04-17] MEDS: METRONIDAZOLE 500 MG PREMIXED 100 ML IVPB SCH ×2 (02:23→11:03)
[2016-04-17] MEDS: IBUPROFEN 800 MG/8 ML IJ IVPB PRN ×2 (04:07→17:54)
[2016-04-17 08:38] LABS: ALK PHOS 144 U/L (45-117); ANION GAP 13 (8-16); BILIRUBIN,TOTAL 2.6 mg/dL (0.2-1.0); CALCIUM 7.6 mg/dL (8.5-10.1); CO2 24 mmol/L (21-32); CREATININE 0.6 mg/dL (0.7-1.3); GLUCOSE,RANDOM 102 mg/dL (74-106); MAGNESIUM 1.7 mg/dL (1.8-2.4); SGOT/AST 87 U/L (15-37); SGPT/ALT 57 U/L (12-78); TOT PROT 5.6 g/dl (6.4-8.2)
[2016-04-17 08:39] LABS: MCH 34.4 pg (25.7-33.7); MEAN CELL VOLUME 101.3 fl (80-96); MEAN PLT VOLUME 9.7 fl (7.5-11.1); PLATELET COUNT 156 K/MM3 (134-434); RDW 15.7 % (11.9-15.9); WHITE BLOOD COUNT 11.4 K/mm3 (4.0-10.0)
[2016-04-17 08:57] LABS: INR 1.92 (0.82-1.09); PROTHROMBIN TIME (PATIENT) 21.4 SEC (9.98-11.88)
[2016-04-17] MEDS ORDERED: CEFTRIAXONE 100 ML IVPB SCH (10:00)
[2016-04-17] MEDS ORDERED: PANTOPRAZOLE SODIUM 100 ML IVPB SCH (10:00)
[2016-04-17] MEDS: POTASSIUM CHLORIDE TABS 20 MEQ TABLET.ER (FP) PO SCH (11:03)
--- NOTE | 2016-04-17 13:57 | PN ---
Physical Exam: SUBJECTIVE: Patient seen and examined at bed side this morning. No new complaints, feels well. Last night had fever with profuse sweating. OBJECTIVE: Vital Signs Period Temp Pulse Resp BP Sys/Sarmiento Pulse Ox Last 24 Hr 98.8 F-102.5 F 92-114 18-25 95-114/53-70 97 GENERAL: Patient is lying comfortably in bed, awake, alert, and fully oriented x 3, in no acute distress. IV Site: Peripheral Pain assessment; 05/24 HEAD: Normal with no signs of trauma. EYES: PEERLA, icterus +, no pallor EARS, NOSE, THROAT: Ears normal NECK: Supple, no JVD or mass LUNGS: Breath sounds equal, clear to auscultation bilaterally. No wheezes, and no crackles. No accessory muscle use. HEART: Regular rate and rhythm, normal S1 and S2 without murmur, rub or gallop. ABDOMEN: Soft, nontender, not distended, normoactive bowel sounds, no guarding, no rebound, no masses. No hepatomegaly or splenomegaly. MUSCULOSKELETAL: Normal range of motion at all joints. No bony deformities or tenderness. No CVA tenderness. UPPER EXTREMITIES: 2+ pulses, warm, well-perfused. No peripheral edema. LOWER EXTREMITIES: 2+ pulses, warm, well-perfused. No calf tenderness. No peripheral edema. NEUROLOGICAL: Cranial nerves II-XII intact. Normal speech. Normal gait. PSYCHIATRIC: Cooperative. Good eye contact. Appropriate mood and affect. SKIN: Tattos + over arms, back, abdomen, right leg +, Warm, dry, normal turgor, no rashes or lesions noted. Laboratory Results - last 24 hr 04/17/16 04/17/16 04/17/16 06:00 06:00 06:00 WBC RBC Hgb Hct MCV MCHC RDW Plt Count MPV Neutrophils % Lymphocytes % Monocytes % Band Neutrophils INR 1.92 H D Sodium 136 Potassium 3.4 L Chloride 99 Carbon Dioxide 24 Anion Gap 13 BUN 7 D Creatinine 0.6 L Creat Clearance w eGFR > 60 Random Glucose 102 Calcium 7.6 L Phosphorus Cancelled 2.0 L D Magnesium Cancelled 1.7 L D Total Bilirubin 2.6 H AST 87 H ALT 57 Alkaline Phosphatase 144 H Total Protein 5.6 L Albumin 2.0 L Lipase 04/17/16 04/17/16 06:00 06:00 WBC 11.4 H D RBC 3.28 L Hgb 11.3 L Hct 33.2 L MCV 101.3 H MCHC 34.0 RDW 15.7 Plt Count 156 MPV 9.7 Neutrophils % 44.0 Lymphocytes % 12.0 D Monocytes % 12.0 H Band Neutrophils 32.0 H INR Sodium Potassium Chloride Carbon Dioxide Anion Gap BUN Creatinine Creat Clearance w eGFR Random Glucose Calcium Phosphorus Magnesium Total Bilirubin AST ALT Alkaline Phosphatase Total Protein Albumin Lipase 811 H Active Medications Generic Name Dose Route Start Last Admin Trade Name Freq PRN Reason Stop Dose Admin Metronidazole 100 mls @ 100 mls/hr 04/16/16 18:00 04/17/16 11:03 Flagyl 500mg Premixed Ivpb - IVPB 100 mls/hr Q8H-IV LALITHA Administration Pantoprazole Sodium 100 mls @ 200 mls/hr 04/17/16 10:00 04/17/16 10:20 Protonix 40mg Ivpb (Pre-Docked) IVPB 200 mls/hr DAILY LALITHA Administration Ibuprofen 400 mg 04/16/16 16:25 04/17/16 13:20 Motrin - PO 400 mg Q6H PRN Administration PAIN Ibuprofen 600 mg 04/17/16 03:37 04/17/16 04:07 Caldolor Injection - IVPB 600 mg Q6H PRN Administration FEVER Piperacillin Sod/Tazobactam Sod 4.5 gm 04/16/16 23:30 04/17/16 09:30 Zosyn 4.5gm Ivpb (Pre-Docked) IVPB 4.5 gm Q8H-IV LALITHA Administration Potassium Chloride 20 meq 04/17/16 10:00 04/17/16 11:03 K-Dur - PO 20 meq DAILY LALITHA Administration 04/15/2015 CT abdomen/Pelvis- No evidence of pancreatic masses or acute/chronic pancreatitis. Inflammatory changes about the right colon suspicious for focal colitis. Mild inflammatory stranding about the left kidney, suggest prior pyelonephritis. Findings of consistent with advanced hepatocellular disease including a nodular liver and splenomegaly, free pelvic fluid superior to urinary bladder. 04/16/2016 USG Abdomen: Cholelithiasis. Hepatosplenomegaly. No evidence of hydronephrosis or acute renal abnormalities. MRCP of Abdomen pending. ASSESSMENT/PLAN: 45 year old male with significant past medical history of ETOH abuse, multiple admissions, detox/withdrawal, obesity s/p lap band, left shoulder surgery, herniated disc presented to the ED with the chief complaints of High grade fever , chills, rigors, headache x 6 days. Admitted with the diagnosis of Sepsis secondary to pyelonephritis. # Sepsis most likely secondary to Pyelonephritis vs Cholangitis-Gram negative bacteremia Pancreatitis ruled out since there is no clinical evidence and CT abdomen negative for Pancreatitis. Patient presented with fever Tmax 103.2, HR-92 Presented with - High leukocyte count 10.2, bandemia. Urine showed 2+blood, leukocyte esterase +, Urine WBC [address] abdomen/Pelvis with contrast suggesting of prior pyelonephritis Blood culture/ Urine Culture positive for Lactose fermenting Gram negative bacilli. Ceftriaxone changed to Zosyn to cover for pyelonephritis and possible biliary problem. IV Metronidazole stopped USG abdomen done report mentioned above MRCP to evaluate biliary tract CBC daily Monitor for Tmax # Elevated liver enzymes most likely due to cirrhosis H/O Alcohol abuse Chronic elevation of liver enzymes Avoid hepatotoxic drugs GI consult appreciated. As per GI, once patient is stabilized refer the patient to [facility] liver transplant/hepatology department. # Severe headache-resolved # Electrolyte imbalance-Improving Hyponatremia, Hypokalemia- Resolved. occurred most likely due to intake of 10 L of fluids (Dilutional hyponatremia) Corrected calcium 9.2 Repeat CMP Rest as per primary. # ID HIV negative Hepatitis panel pending. # FEN Not on IV fluids Electrolytes-mentioned above Sodium controlled diet. # Prophylaxis For DVT- On SCD's For GI- Pantoprazole Illness, Investigation and Plan of care explained to the patient. He verbalized understanding. Case seen and discussed with Dr. Varma. Thank you for the consultative opportunity. Visit type - Emergency Visit Emergency Visit: Yes ED Registration Date: 04/16/16 Care time: The patient presented to the Emergency Department on the above date and was hospitalized for further evaluation of their emergent condition. - New Patient This patient is new to me today: No - Critical Care Critical Care patient: No
[2016-04-17] MEDS ORDERED: MAGNESIUM SULF 50% (8.12 MEQ/2 ML-1 GM VIAL) IVPB ONE (16:47)
--- NOTE | 2016-04-17 16:47 | PN ---
Progress Note, Physician Chief Complaint: Mr Blount says he is feeling better but is still under the weather. Has a cough with general malaise. No cp or n/v. - Current Medication List Current Medications: Active Medications Guaifenesin/Codeine Phosphate (Robitussin Ac -) 10 ml PO Q8H PRN PRN Reason: COUGH Pantoprazole Sodium (Protonix 40mg Ivpb (Pre-Docked)) 100 mls @ 200 mls/hr IVPB DAILY LALITHA Last Admin: 04/17/16 10:20 Dose: 200 mls/hr Ibuprofen (Motrin -) 400 mg PO Q6H PRN PRN Reason: PAIN Last Admin: 04/17/16 13:20 Dose: 400 mg Ibuprofen (Caldolor Injection -) 600 mg IVPB Q6H PRN PRN Reason: FEVER Last Admin: 04/17/16 04:07 Dose: 600 mg Piperacillin Sod/Tazobactam Sod (Zosyn 4.5gm Ivpb (Pre-Docked)) 4.5 gm IVPB Q8H -IV LALITHA Last Admin: 04/17/16 09:30 Dose: 4.5 gm Potassium Chloride (K-Dur -) 20 meq PO DAILY LALITH[facility] Last Admin: 04/17/16 11:03 Dose: 20 meq - Objective Vital Signs: Vital Signs Temperature 99.4 F 04/17/16 15:08 Pulse Rate 99 H 04/17/16 15:08 Respiratory Rate 18 04/17/16 15:08 Blood Pressure 110/67 04/17/16 15:08 O2 Sat by Pulse Oximetry (%) 98 04/17/16 09:00 Constitutional: Yes: No Distress, Calm, Obese Cardiovascular: Yes: Regular Rate and Rhythm. No: Gallop, Murmur, Rub Respiratory: Yes: Regular, CTA Bilaterally. No: Rales, Rhonchi, Wheezes Gastrointestinal: Yes: Normal Bowel Sounds, Soft. No: Distention, Tenderness Extremities: Yes: WNL Edema: No Labs: CBC, BMP 04/17/16 06:00 04/17/16 06:00 INR, PTT INR 1.92 (0.82-1.09) H D 04/17/16 06:00 Problem List - Problems (1) Pyelonephritis Assessment/Plan: -concern for pyelonephritis -ID following -continue zosyn -patient improving Code(s): N12 - TUBULO-INTERSTITIAL NEPHRITIS, NOT SPCF ACUTE OR CHRONIC (2) Pancreatitis Assessment/Plan: -MRCP showing possible pancreatitis -however clinically does not appear to be pancreatitis -GI following -monitor Code(s): K85.9 - ACUTE PANCREATITIS, UNSPECIFIED * DO NOT USE * Qualifiers: Chronicity: acute Pancreatitis type: biliary Qualified Code(s): K85.1 - Biliary acute pancreatitis (3) Cirrhosis Assessment/Plan: -appreciate GI consult -secondary to alcohol intake -patient counselled to stop drinking -outpatient evaluation with liver transplant Code(s): K74.60 - UNSPECIFIED CIRRHOSIS OF LIVER Qualifiers: Hepatic cirrhosis type: alcoholic cirrhosis Ascites presence: with ascites Qualified Code(s): K70.31 - Alcoholic cirrhosis of liver with ascites (4) Sepsis Assessment/Plan: -clinically improved -continue zosyn Code(s): A41.9 - SEPSIS, UNSPECIFIED ORGANISM Qualifiers: Sepsis type: sepsis due to unspecified organism Qualified Code(s): A41.9 - Sepsis, unspecified organism (5) Hypokalemia Assessment/Plan: -replace Code(s): E87.6 - HYPOKALEMIA (6) Hypophosphatemia Assessment/Plan: -replace Code(s): E83.39 - OTHER DISORDERS OF PHOSPHORUS METABOLISM (7) Hypomagnesemia Assessment/Plan: -replace Code(s): E83.42 - HYPOMAGNESEMIA
--- NOTE | 2016-04-17 17:02 | PN ---
Teaching Attending Note Name of Resident: Marilia Reid ATTENDING PHYSICIAN STATEMENT I saw and evaluated the patient. I reviewed the resident's note and discussed the case with the resident. I agree with the resident's findings and plan as documented. SUBJECTIVE: fevers overnight, improved today OBJECTIVE: Vital Signs Period Temp Pulse Resp BP Sys/Sarmiento Pulse Ox Last 24 Hr 98.6 F-102.5 F 89-114 16-20 95-113/53-70 97-98 cor-rrr lungs clear abd soft,nt ext no edema CBC, BMP 04/17/16 06:00 04/17/16 06:00 Microbiology 04/16/16 01:00 Urine - Urine Clean Catch Urine Culture - Preliminary Lactose Fermenting Neg Bacilli 04/15/16 22:20 Blood - Peripheral Venous Blood Culture - Preliminary Lactose Fermenting Neg Bacilli 04/15/16 22:20 Nasopharyngeal Swab Respiratory Virus Panel - Preliminary 04/15/16 22:20 Nasopharyngeal Swab Influenza Types A,B Antigen (LIU) - Final 04/15/16 22:20 Nasopharyngeal Swab - Final HIV negative ASSESSMENT AND PLAN: gram negative bacteremia sepsis uti/pyelonephritis liver cirrhosis continue zosyn, f/u cultures
[2016-04-17] MEDS ORDERED: PT OWN MED DRAWER 7, Y5N ONE (17:50)
[2016-04-17] MEDS: FLUTICASONE PROP 0.05% 16 GM NASAL SPRAY NS SCH ×2 (18:03→22:28)
--- NOTE | 2016-04-17 19:22 | PN ---
GI Progress Note Subjective: No abdominal pain Continued fevers/chills Blood cultures and Urine cultures + for same organism MRCP revealed changes c/w pancreatitis, gallstones. MRCP was not diagnostic given motion artiface however no dilated ducts were seen. Focal nephronia left kidney noted as well. Lipase is 800 He denies any abdominal pain and tells me that he has not had any alcohol for 5 weeks - Objective Vital Signs: Vital Signs Temperature 99.5 F 04/17/16 16:56 Pulse Rate 96 H 04/17/16 16:56 Respiratory Rate 18 04/17/16 16:56 Blood Pressure 107/62 04/17/16 16:56 O2 Sat by Pulse Oximetry (%) 98 04/17/16 09:00 Constitutional: Calm Eyes: Yes: Sclera Icterus Cardiovascular: Yes: Tachycardia Respiratory: Yes: CTA Bilaterally Gastrointestinal Inspection: No: Distention ...Auscultate: Yes: Normoactive Bowel Sounds ...Palpate: No: Tenderness Edema: No Neurological: Yes: Alert, Oriented. No: Asterixis Labs: CBC, BMP 04/17/16 06:00 04/17/16 06:00 INR, PTT INR 1.92 (0.82-1.09) H D 04/17/16 06:00 Hepatic Panel Total Bilirubin 2.6 mg/dL (0.2-1.0) H 04/17/16 06:00 Direct Bilirubin 2.3 mg/dL (0.0-0.2) H D 04/16/16 04:00 AST 87 U/L (15-37) H 04/17/16 06:00 ALT 57 U/L (12-78) 04/17/16 06:00 Alkaline Phosphatase 144 U/L (45-117) H 04/17/16 06:00 Albumin 2.0 g/dl (3.4-5.0) L 04/17/16 06:00 INR, PTT INR 1.92 (0.82-1.09) H D 04/17/16 06:00 Problem List - Problems (1) Cirrhosis Assessment/Plan: With chronic LFT abnormality Suspect that systemic illness (pyelonephritis with bacteremia) worsening liver function. Gallstones noted but no RUQ pain. Suspect incidental as opposed to causative of current clinical picture, especially in setting of matching blood/urine cultures Monitor LFT's, coags Treat systemic infection Code(s): K74.60 - UNSPECIFIED CIRRHOSIS OF LIVER Qualifiers: Hepatic cirrhosis type: alcoholic cirrhosis Ascites presence: with ascites Qualified Code(s): K70.31 - Alcoholic cirrhosis of liver with ascites (2) Pancreatitis Assessment/Plan: Strange picture as patient without abdominal pain, even prior to admission. ? if fluid noted on imaging study secondary to hypoalbuminemia as opposed to true pancreatitis. Will discuss with radiology tomorrow Clears for now Code(s): K85.9 - ACUTE PANCREATITIS, UNSPECIFIED * DO NOT USE * Qualifiers: Chronicity: acute Pancreatitis type: biliary Qualified Code(s): K85.1 - Biliary acute pancreatitis
[2016-04-17] MEDS: NAPH,MB-DB/K PH,MBDB POWDER PACKET PO SCH (21:24)
[2016-04-17] MEDS ORDERED: MAGNESIUM HYDROX 2400MG/30ML ORAL SUSPENSION 30 ML CUP PO ONE (21:45)
[2016-04-17] MEDS ORDERED: ZOLPIDEM TARTRATE 5 MG TABLET PO ONE (22:00)
[2016-04-18] MEDS: IBUPROFEN 800 MG/8 ML IJ IVPB PRN ×2 (01:53→21:40)
[2016-04-18] MEDS: PIPERACILLIN/TAZOB 4.5 GM/100 ML PRE-DOCKED IVPB SCH ×2 (02:02→09:42)
[2016-04-18 04:09] LABS: URINE APPEARANCE SLCLOUDY; URINE COLOR AMBER; URINE GLUCOSE (UA) NEGATIVE (NEGATIVE); URINE KETONE NEGATIVE (NEGATIVE); URINE NITRITE NEGATIVE (NEGATIVE); URINE UROBILINOGEN 2.0 E.U/dl E.U./dl (0.2-1.0)
[2016-04-18 04:11] LABS: URINE BLOOD 2+ (NEGATIVE); URINE LEUK ESTERASE 2+ (NEGATIVE); URINE PROTEIN 1+ (NEGATIVE)
[2016-04-18 04:16] LABS: URINE BACTERIA MANY /hpf (NONE SEEN); URINE HYALINE CAST 55 /lpf; URINE MUCUS FEW; URINE RBC 7 /hpf (0-3); URINE WBC 567 /hpf (3-5); YEAST FEW
[2016-04-18 08:16] LABS: BASOPHIL 0.2 % (0-2.0); EOSINOPHIL 0.3 % (0-4.5); MCH 34.1 pg (25.7-33.7); MCHC 33.9 g/dl (32.0-35.9); MEAN CELL VOLUME 100.6 fl (80-96); MEAN PLT VOLUME 9.4 fl (7.5-11.1); PLATELET COUNT 172 K/MM3 (134-434); RDW 15.6 % (11.9-15.9)
[2016-04-18 08:36] LABS: INR 2.05 (0.82-1.09); PROTHROMBIN TIME (PATIENT) 22.9 SEC (9.98-11.88)
[2016-04-18 08:46] LABS: BILIRUBIN,DIRECT 2.4 mg/dL (0.0-0.2); BILIRUBIN,TOTAL 3.3 mg/dL (0.2-1.0); TOT PROT 5.6 g/dl (6.4-8.2)
--- NOTE | 2016-04-18 09:34 | PN ---
Progress Note (short form) - Note Progress Note: Fever 103 and rigors this AM. No CP or SOB. Feels generalized weakness. Poor UO overnight. Intake & Output 04/15/16 04/16/16 04/17/16 04/18/16 23:59 23:59 23:59 23:59 Intake Total 5225 3370 160 Output Total 1025 50 Balance 4200 3320 160 Weight 250 lb 244 lb 2 oz 250 lb 248 lb 6.4 oz Last Vital Signs Temp Pulse Resp BP Pulse Ox 98.1 F 96 H 20 99/58 96 04/18/16 06:45 04/18/16 06:45 04/18/16 06:45 04/18/16 06:45 04/17/16 21:00 Active Medications Fluticasone Propionate (Flonase -) 1 spray NS DAILY [facility] Last Admin: 04/17/16 22:28 Dose: 1 spray Guaifenesin/Codeine Phosphate (Robitussin Ac -) 10 ml PO Q8H PRN PRN Reason: COUGH Ibuprofen (Motrin -) 400 mg PO Q6H PRN PRN Reason: PAIN Last Admin: 04/17/16 13:20 Dose: 400 mg Ibuprofen (Caldolor Injection -) 600 mg IVPB Q6H PRN PRN Reason: FEVER Last Admin: 04/18/16 01:53 Dose: 600 mg Pantoprazole Sodium (Protonix -) 20 mg PO DAILY [facility] Piperacillin Sod/Tazobactam Sod (Zosyn 4.5gm Ivpb (Pre-Docked)) 4.5 gm IVPB Q8H -IV LALITHA Last Admin: 04/18/16 02:02 Dose: 4.5 gm Potassium Chloride (K-Dur -) 20 meq PO DAILY [facility] Last Admin: 04/17/16 11:03 Dose: 20 meq Potassium Phos/Sodium Phos (Phos-Nak Packet -) 1 packet PO BID [facility] Last Admin: 04/17/16 21:24 Dose: 1 packet Constitutional: Yes: Awake and alert, No Distress Cardiovascular: Yes: Regular Rate and Rhythm. No: Gallop, Murmur, Rub Respiratory: Yes: Regular, CTA Bilaterally. No: Rales, Rhonchi, Wheezes Gastrointestinal: Yes: Normal Bowel Sounds, Soft. No: Distention, Tenderness Extremities: Yes: WNL Edema: No Labs: Laboratory Results - last 24 hr 04/17/16 04/17/16 04/18/16 06:00 06:00 03:40 WBC RBC Hgb Hct MCV MCHC RDW Plt Count MPV Neutrophils % 44.0 Lymphocytes % 12.0 D Monocytes % 12.0 H Eosinophils % Basophils % Band Neutrophils 32.0 H INR Total Bilirubin Direct Bilirubin AST ALT Alkaline Phosphatase Total Protein Albumin Urine Color Yarelis Urine Appearance Slcloudy Urine pH 5.0 D Ur Specific Leslie 1.025 Urine Protein 1+ H Urine Glucose (UA) Negative Urine Ketones Negative Urine Blood 2+ H Urine Nitrite Negative Urine Bilirubin 2.0 Urine Urobilinogen 2.0 e.u/dl Ur Leukocyte Esterase 2+ H Urine RBC 7 Urine WBC 567 Urine Bacteria Many Hyaline Casts 55 Urine Mucus Few Urine Yeast Few Hepatitis C Antibody 0.3 04/18/16 04/18/16 04/18/16 06:55 06:55 06:55 WBC 17.0 H D RBC 3.30 L Hgb 11.2 L Hct 33.2 L MCV 100.6 H MCHC 33.9 RDW 15.6 Plt Count 172 MPV 9.4 Neutrophils % 79.0 D Lymphocytes % 4.1 L D Monocytes % 16.4 H Eosinophils % 0.3 D Basophils % 0.2 Band Neutrophils INR 2.05 H Total Bilirubin 3.3 H D Direct Bilirubin 2.4 H AST 91 H ALT 59 Alkaline Phosphatase 164 H Total Protein 5.6 L Albumin 2.0 L Urine Color Urine Appearance Urine pH Ur Specific Leslie Urine Protein Urine Glucose (UA) Urine Ketones Urine Blood Urine Nitrite Urine Bilirubin Urine Urobilinogen Ur Leukocyte Esterase Urine RBC Urine WBC Urine Bacteria Hyaline Casts Urine Mucus Urine Yeast Hepatitis C Antibody Problem List - Problems (1) Pyelonephritis Assessment/Plan: Code(s): N12 - TUBULO-INTERSTITIAL NEPHRITIS, NOT SPCF ACUTE OR CHRONIC (2) Pancreatitis Assessment/Plan: Code(s): K85.9 - ACUTE PANCREATITIS, UNSPECIFIED * DO NOT USE * Qualifiers: Chronicity: acute Pancreatitis type: biliary Qualified Code(s): K85.1 - Biliary acute pancreatitis (3) Cirrhosis Assessment/Plan: Code(s): K74.60 - UNSPECIFIED CIRRHOSIS OF LIVER Qualifiers: Hepatic cirrhosis type: alcoholic cirrhosis Ascites presence: with ascites Qualified Code(s): K70.31 - Alcoholic cirrhosis of liver with ascites (4) Sepsis Assessment/Plan: Code(s): A41.9 - SEPSIS, UNSPECIFIED ORGANISM Qualifiers: Sepsis type: sepsis due to unspecified organism Qualified Code(s): A41.9 - Sepsis, unspecified organism (5) Hypokalemia Assessment/Plan: Code(s): E87.6 - HYPOKALEMIA (6) Hypophosphatemia Assessment/Plan: Code(s): E83.39 - OTHER DISORDERS OF PHOSPHORUS METABOLISM (7) Hypomagnesemia Assessment/Plan: Code(s): E83.42 - HYPOMAGNESEMIA PLAN: D/W ID ABX to be changed IVF Follow final cultures Check lactic acid Follow I&O Follow labs Dr Arroyo
[2016-04-18] MEDS ORDERED: PT OWN MED DRAWER 7, Y5N ONE (09:39)
[2016-04-18] MEDS: POTASSIUM CHLORIDE TABS 20 MEQ TABLET.ER (FP) PO SCH (09:42)
[2016-04-18] MEDS: PANTOPRAZOLE 20 MG TABLET (FP) PO SCH (09:42)
[2016-04-18] MEDS: NAPH,MB-DB/K PH,MBDB POWDER PACKET PO SCH ×2 (09:43→21:25)
[2016-04-18] MEDS: FLUTICASONE PROP 0.05% 16 GM NASAL SPRAY NS SCH (09:43)
[2016-04-18] MEDS ORDERED: SODIUM CHLORIDE 1,000 ML with POTASSIUM CHLORIDE 20 MEQ IVPB SCH (09:45)
[2016-04-18] MEDS: SODIUM CHLORIDE 0.9%/KCL 1,000 ML IV SCH (09:50)
--- NOTE | 2016-04-18 10:03 | PN ---
Progress Note, Physician Chief Complaint: ID Febrile with chills yesterday better today Blood cutures Klebsiella pansensitive now available - Current Medication List Current Medications: Active Medications Fluticasone Propionate (Flonase -) 1 spray NS DAILY [facility] Last Admin: 04/18/16 09:43 Dose: 1 spray Guaifenesin/Codeine Phosphate (Robitussin Ac -) 10 ml PO Q8H PRN PRN Reason: COUGH Potassium Chloride/Sodium Chloride (Ns+20 Meq Kcl -) 1,000 mls @ 100 mls/hr IV ASDIR [facility] Ibuprofen (Motrin -) 400 mg PO Q6H PRN PRN Reason: PAIN Last Admin: 04/17/16 13:20 Dose: 400 mg Ibuprofen (Caldolor Injection -) 600 mg IVPB Q6H PRN PRN Reason: FEVER Last Admin: 04/18/16 01:53 Dose: 600 mg Pantoprazole Sodium (Protonix -) 20 mg PO DAILY [facility] Last Admin: 04/18/16 09:42 Dose: 20 mg Piperacillin Sod/Tazobactam Sod (Zosyn 4.5gm Ivpb (Pre-Docked)) 4.5 gm IVPB Q8H -IV [facility] Last Admin: 04/18/16 09:42 Dose: 4.5 gm Potassium Chloride (K-Dur -) 20 meq PO DAILY [facility] Last Admin: 04/18/16 09:42 Dose: 20 meq Potassium Phos/Sodium Phos (Phos-Nak Packet -) 1 packet PO BID [facility] Last Admin: 04/18/16 09:43 Dose: 1 packet - Objective Vital Signs: Vital Signs Temperature 98.1 F 04/18/16 06:45 Pulse Rate 96 H 04/18/16 06:45 Respiratory Rate 20 04/18/16 06:45 Blood Pressure 99/58 04/18/16 06:45 O2 Sat by Pulse Oximetry (%) 96 04/17/16 21:00 Constitutional: Yes: Well Nourished, No Distress HENT: Yes: WNL, Atraumatic Neck: Yes: WNL, Supple Cardiovascular: Yes: WNL, Regular Rate and Rhythm, S1, S2 Respiratory: Yes: WNL, Regular, CTA Bilaterally Gastrointestinal: Yes: WNL, Normal Bowel Sounds, Soft. No: Tenderness, Tenderness, Epigastrium ...Rectal Exam: Yes: Other (Tender prostate swollen) Labs: CBC, BMP 04/18/16 06:55 04/17/16 06:00 INR, PTT INR 2.05 (0.82-1.09) H 04/18/16 06:55 Assessment/Plan Microbiology 04/16/16 01:00 Urine - Urine Clean Catch Urine Culture - Final Klebsiella Pneumoniae 04/15/16 22:20 Blood - Peripheral Venous Blood Culture - Final Klebsiella Pneumoniae Laboratory Tests 04/16/16 04/17/16 04/18/16 10:00 06:00 03:40 WBC Hgb Plt Count BUN 7 D Creatinine 0.6 L Ur Leukocyte Esterase 2+ H Urine RBC 7 Urine WBC 567 HIV 1&2 Antibody Screen Negative HIV P24 Antigen Negative 04/18/16 06:55 WBC 17.0 H D Hgb 11.2 L Plt Count 172 BUN Creatinine Ur Leukocyte Esterase Urine RBC Urine WBC HIV 1&2 Antibody Screen HIV P24 Antigen Assessment Acute prostatitis albe to urinate currently. Prostate exam with swollen tender prostate WBC up suspect possible abscess though not seen on CT imaging. Organism mendes sensitive Plan Cefazolin 2 grs q 8H Urology evaluation Repeat U/A and urine c/s Emilee DAMON
--- NOTE | 2016-04-18 10:44 | PN ---
GI Progress Note Subjective: Continued episodes of rigors with fevers. + Repeat UA as well - Objective Vital Signs: Vital Signs Temperature 98.1 F 04/18/16 06:45 Pulse Rate 96 H 04/18/16 06:45 Respiratory Rate 20 04/18/16 06:45 Blood Pressure 99/58 04/18/16 06:45 O2 Sat by Pulse Oximetry (%) 96 04/17/16 21:00 Constitutional: Calm Eyes: Yes: Sclera Icterus (mild) Cardiovascular: Yes: Regular Rate and Rhythm Respiratory: Yes: CTA Bilaterally Gastrointestinal Inspection: No: Distention ...Auscultate: Yes: Normoactive Bowel Sounds ...Palpate: No: Tenderness Edema: No Neurological: Yes: Alert, Oriented Labs: CBC, BMP 04/18/16 06:55 04/17/16 06:00 INR, PTT INR 2.05 (0.82-1.09) H 04/18/16 06:55 Microbiology 04/16/16 01:00 Urine - Urine Clean Catch Urine Culture - Preliminary Lactose Fermenting Neg Bacilli 04/15/16 22:20 Blood - Peripheral Venous Blood Culture - Preliminary Lactose Fermenting Neg Bacilli 04/17/16 21:00 Blood - Peripheral Venous Blood Culture - Preliminary Pending Organism Laboratory Tests 04/17/16 04/17/16 06:00 06:00 INR 1.92 H D Hepatitis A Ab Total Pending Hep Bs Antigen Pending Hep Bs Antibody Pending Hep B Core Total Ab Pending Hepatitis C Antibody 0.3 Problem List - Problems (1) Cirrhosis Assessment/Plan: With component of decompensation in setting of systemic illness Monitor liver function Q 6 Month AFP tumor marker / US to screen for HCC Code(s): K74.60 - UNSPECIFIED CIRRHOSIS OF LIVER Qualifiers: Hepatic cirrhosis type: alcoholic cirrhosis Ascites presence: with ascites Qualified Code(s): K70.31 - Alcoholic cirrhosis of liver with ascites (2) Urinary tract infection Assessment/Plan: Suspected prostatitis in discussion with Dr. Emilee Barney have been adjusted Code(s): N39.0 - URINARY TRACT INFECTION, SITE NOT SPECIFIED
[2016-04-18 10:53] LABS: C-REACTIVE PROTEIN 8.6 MG/DL (0.00-0.3)
--- NOTE | 2016-04-18 11:37 | PN ---
Physical Exam: SUBJECTIVE: Patient seen and examined at bed side this morning. No new complaints, feels well. Last night had fever with rigors and profuse sweating. OBJECTIVE: Vital Signs Period Temp Pulse Resp BP Sys/Sarmiento Pulse Ox Last 24 Hr 98.1 F-103.1 F 96-99 18-22 99-110/58-67 96 GENERAL: Patient is lying comfortably in bed, awake, alert, and fully oriented x 3, in no acute distress. IV Site: Peripheral Pain assessment; 05/24 HEAD: Normal with no signs of trauma. EYES: PEERLA, icterus +, no pallor EARS, NOSE, THROAT: Ears normal NECK: Supple, no JVD or mass LUNGS: Breath sounds equal, clear to auscultation bilaterally. No wheezes, and no crackles. No accessory muscle use. HEART: Regular rate and rhythm, normal S1 and S2 without murmur, rub or gallop. ABDOMEN: Soft, nontender, not distended, normoactive bowel sounds, no guarding, no rebound, no masses. No hepatomegaly or splenomegaly. MUSCULOSKELETAL: Normal range of motion at all joints. No bony deformities or tenderness. No CVA tenderness. UPPER EXTREMITIES: 2+ pulses, warm, well-perfused. No peripheral edema. LOWER EXTREMITIES: 2+ pulses, warm, well-perfused. No calf tenderness. No peripheral edema. NEUROLOGICAL: Cranial nerves II-XII intact. Normal speech. Normal gait. PSYCHIATRIC: Cooperative. Good eye contact. Appropriate mood and affect. SKIN: Tattos + over arms, back, abdomen, right leg +, Warm, dry, normal turgor, no rashes or lesions noted. Laboratory Results - last 24 hr 04/17/16 04/18/16 04/18/16 06:00 03:40 06:55 WBC RBC Hgb Hct MCV MCHC RDW Plt Count MPV Neutrophils % Lymphocytes % Monocytes % Eosinophils % Basophils % INR 2.05 H Lactic Acid Total Bilirubin Direct Bilirubin AST ALT Alkaline Phosphatase C-Reactive Protein Total Protein Albumin Urine Color Yarelis Urine Appearance Slcloudy Urine pH 5.0 D Ur Specific Benton 1.025 Urine Protein 1+ H Urine Glucose (UA) Negative Urine Ketones Negative Urine Blood 2+ H Urine Nitrite Negative Urine Bilirubin 2.0 Urine Urobilinogen 2.0 e.u/dl Ur Leukocyte Esterase 2+ H Urine RBC 7 Urine WBC 567 Urine Bacteria Many Hyaline Casts 55 Urine Mucus Few Urine Yeast Few Hepatitis C Antibody 0.3 04/18/16 04/18/16 04/18/16 06:55 06:55 09:50 WBC 17.0 H D RBC 3.30 L Hgb 11.2 L Hct 33.2 L MCV 100.6 H MCHC 33.9 RDW 15.6 Plt Count 172 MPV 9.4 Neutrophils % 79.0 D Lymphocytes % 4.1 L D Monocytes % 16.4 H Eosinophils % 0.3 D Basophils % 0.2 INR Lactic Acid 2.252 H* Total Bilirubin 3.3 H D Direct Bilirubin 2.4 H AST 91 H ALT 59 Alkaline Phosphatase 164 H C-Reactive Protein 8.6 H Total Protein 5.6 L Albumin 2.0 L Urine Color Urine Appearance Urine pH Ur Specific B[place] Urine Protein Urine Glucose (UA) Urine Ketones Urine Blood Urine Nitrite Urine Bilirubin Urine Urobilinogen Ur Leukocyte Esterase Urine RBC Urine WBC Urine Bacteria Hyaline Casts Urine Mucus Urine Yeast Hepatitis C Antibody 04/18/16 10:25 WBC RBC Hgb Hct MCV MCHC RDW Plt Count MPV Neutrophils % Lymphocytes % Monocytes % Eosinophils % Basophils % INR Lactic Acid Total Bilirubin Direct Bilirubin AST ALT Alkaline Phosphatase C-Reactive Protein Cancelled Total Protein Albumin Urine Color Urine Appearance Urine pH Ur Specific [place] Urine Protein Urine Glucose (UA) Urine Ketones Urine Blood Urine Nitrite Urine Bilirubin Urine Urobilinogen Ur Leukocyte Esterase Urine RBC Urine WBC Urine Bacteria Hyaline Casts Urine Mucus Urine Yeast Hepatitis C Antibody Active Medications Generic Name Dose Route Start Last Admin Trade Name Freq PRN Reason Stop Dose Admin Fluticasone Propionate 1 spray 04/17/16 16:45 04/18/16 09:43 Flonase - NS 1 spray DAILY [facility] Administration Guaifenesin/Codeine Phosphate 10 ml 04/17/16 16:41 Robitussin Ac - PO Q8H PRN COUGH Potassium Chloride/Sodium Chloride 1,000 mls @ 100 mls/hr 04/18/16 09:50 Ns+20 Meq Kcl - IV ASDIR LALITHA Cefazolin Sodium 2 gm/ 50 mls @ 100 mls/hr 04/18/16 18:00 Dextrose IVPB Q8H-IV LALITHA Ibuprofen 400 mg 04/16/16 16:25 04/17/16 13:20 Motrin - PO 400 mg Q6H PRN Administration PAIN Ibuprofen 600 mg 04/17/16 03:37 04/18/16 01:53 Caldolor Injection - IVPB 600 mg Q6H PRN Administration FEVER Pantoprazole Sodium 20 mg 04/18/16 10:00 04/18/16 09:42 Protonix - PO 20 mg DAILY LALITHA Administration Potassium Chloride 20 meq 04/17/16 10:00 04/18/16 09:42 K-Dur - PO 20 meq DAILY LALITHA Administration Potassium Phos/Sodium Phos 1 packet 04/17/16 22:00 04/18/16 09:43 Phos-Nak Packet - PO 1 packet BID LALITHA Administration 04/15/2015 CT abdomen/Pelvis- No evidence of pancreatic masses or acute/chronic pancreatitis. Inflammatory changes about the right colon suspicious for focal colitis. Mild inflammatory stranding about the left kidney, suggest prior pyelonephritis. Findings of consistent with advanced hepatocellular disease including a nodular liver and splenomegaly, free pelvic fluid superior to urinary bladder. 04/16/2016 USG Abdomen: Cholelithiasis. Hepatosplenomegaly. No evidence of hydronephrosis or acute renal abnormalities. 04/16/2016 MRCP of Abdomen : Contracted Gall bladder containing gall stones. Non diagnostic MRCP sequences due to significant motion. No biliary ductal dilatation. Peripancreatic edema extending inferiorly along the retroperitoneal planes associated with periportal and abdirahman hepatis edema suspicious for pancreatitis. No pancreatic ductal dilatation. Fatty liver vs Hepatocellular disease with splenomegaly. 2.3 cm left lower renal ple cyst. s/p gastric banding. ASSESSMENT/PLAN: 45 year old male with significant past medical history of ETOH abuse, multiple admissions, detox/withdrawal, obesity s/p lap band, left shoulder surgery, herniated disc presented to the ED with the chief complaints of High grade fever , chills, rigors, headache x 6 days. Admitted with the diagnosis of Sepsis secondary to pyelonephritis. # Sepsis most likely secondary to Pyelonephritis vs Prostatitis-Gram negative bacteremia Pancreatitis ruled out since there is no clinical evidence and CT abdomen negative for Pancreatitis. Possible Prostatitis because on [place] exam: tender swollen prostate found by Dr. Hebert. Patient presented with fever Tmax 103.2, HR-92 Presented with - High leukocyte count 10.2, bandemia. Urine showed 2+blood, leukocyte esterase +, Urine WBC [address] abdomen/Pelvis with contrast suggesting of prior pyelonephritis Blood culture/ Urine Culture positive for Lactose fermenting Gram negative bacilli. Now has lactic acidosis, trend lactic acidosis. Ceftriaxone changed to Zosyn and now changed to cephazolin to treat prostatitis. IV Metronidazole stopped USG abdomen done report mentioned above MRCP to evaluate biliary tract CBC daily Monitor for Tmax # Elevated liver enzymes most likely due to cirrhosis H/O Alcohol abuse Chronic elevation of liver enzymes Avoid hepatotoxic drugs GI consult appreciated. As per GI, once patient is stabilized refer the patient to [facility] liver transplant/hepatology department. # Cholelithiasis: Acute cholecystitis less likely. Could be an incidental finding. # Severe headache-resolved # Electrolyte imbalance-Improving Hyponatremia, Hypokalemia- Resolved. occurred most likely due to intake of 10 L of fluids (Dilutional hyponatremia) Corrected calcium 9.2 Repeat CMP Rest as per primary. # ID HIV negative Hepatitis panel pending. # FEN On IV NS @ 100mls/hr. Electrolytes-mentioned above Sodium controlled diet. # Prophylaxis For DVT- On SCD's For GI- Pantoprazole Illness, Investigation and Plan of care explained to the patient. He verbalized understanding. Case seen and discussed with Dr. Hebert. Thank you for the consultative opportunity. Visit type - Emergency Visit Emergency Visit: Yes ED Registration Date: 04/16/16 Care time: The patient presented to the Emergency Department on the above date and was hospitalized for further evaluation of their emergent condition. - New Patient This patient is new to me today: No - Critical Care Critical Care patient: No
--- NOTE | 2016-04-18 12:10 | PN ---
Progress Note, Physician Chief Complaint: Mr Blount says he is feeling better but still with overnight fevers and night sweats. No cp, sob, n/v. - Current Medication List Current Medications: Active Medications Fluticasone Propionate (Flonase -) [address] [facility] Last Admin: 04/18/16 09:43 Dose: 1 spray Guaifenesin/Codeine Phosphate (Robitussin Ac -) 10 ml PO Q8H PRN PRN Reason: COUGH Potassium Chloride/Sodium Chloride (Ns+20 Meq Kcl -) 1,000 mls @ 100 mls/hr IV ASDIR LALITHA Cefazolin Sodium 2 gm/ (Dextrose) 50 mls @ 100 mls/hr IVPB Q8H-IV LALITHA Ibuprofen (Motrin -) 400 mg PO Q6H PRN PRN Reason: PAIN Last Admin: 04/17/16 13:20 Dose: 400 mg Ibuprofen (Caldolor Injection -) 600 mg IVPB Q6H PRN PRN Reason: FEVER Last Admin: 04/18/16 01:53 Dose: 600 mg Pantoprazole Sodium (Protonix -) [address] [facility] Last Admin: 04/18/16 09:42 Dose: 20 mg Potassium Chloride (K-Dur -) [address] [facility] Last Admin: 04/18/16 09:42 Dose: 20 meq Potassium Phos/Sodium Phos (Phos-Nak Packet -) [address] [facility] Last Admin: 04/18/16 09:43 Dose: 1 packet - Objective Vital Signs: Vital Signs Temperature 98.1 F 04/18/16 06:45 Pulse Rate 96 H 04/18/16 06:45 Respiratory Rate 20 04/18/16 06:45 Blood Pressure 99/58 04/18/16 06:45 O2 Sat by Pulse Oximetry (%) 96 04/17/16 21:00 Constitutional: Yes: No Distress, Calm, Obese Cardiovascular: Yes: Regular Rate and Rhythm. No: Gallop, Murmur, Rub Respiratory: Yes: Regular, CTA Bilaterally. No: Rales, Rhonchi, Wheezes Gastrointestinal: Yes: Normal Bowel Sounds, Soft. No: Distention, Tenderness Extremities: Yes: WNL Edema: No Labs: CBC, BMP 04/18/16 06:55 04/17/16 06:00 INR, PTT INR 2.05 (0.82-1.09) H 04/18/16 06:55 Problem List - Problems (1) Pyelonephritis Code(s): N12 - TUBULO-INTERSTITIAL NEPHRITIS, NOT SPCF ACUTE OR CHRONIC (2) Pancreatitis Code(s): K85.9 - ACUTE PANCREATITIS, UNSPECIFIED * DO NOT USE * Qualifiers: Chronicity: acute Pancreatitis type: biliary Qualified Code(s): K85.1 - Biliary acute pancreatitis (3) Cirrhosis Code(s): K74.60 - UNSPECIFIED CIRRHOSIS OF LIVER Qualifiers: Hepatic cirrhosis type: alcoholic cirrhosis Ascites presence: with ascites Qualified Code(s): K70.31 - Alcoholic cirrhosis of liver with ascites (4) Sepsis Code(s): A41.9 - SEPSIS, UNSPECIFIED ORGANISM Qualifiers: Sepsis type: sepsis due to unspecified organism Qualified Code(s): A41.9 - Sepsis, unspecified organism (5) Hypokalemia Code(s): E87.6 - HYPOKALEMIA (6) Hypophosphatemia Code(s): E83.39 - OTHER DISORDERS OF PHOSPHORUS METABOLISM (7) Hypomagnesemia Code(s): E83.42 - HYPOMAGNESEMIA Assessment/Plan (1) Pyelonephritis/prostatitis Assessment/Plan: -case d/w ID and pulmonary -changed antibiotics to cefazolin -consult urology Code(s): N12 - TUBULO-INTERSTITIAL NEPHRITIS, NOT SPCF ACUTE OR CHRONIC (2) Pancreatitis Assessment/Plan: -MRCP showing possible pancreatitis -however clinically does not appear to be pancreatitis -GI following -monitor Code(s): K85.9 - ACUTE PANCREATITIS, UNSPECIFIED * DO NOT USE * Qualifiers: Chronicity: acute Pancreatitis type: biliary Qualified Code(s): K85.1 - Biliary acute pancreatitis (3) Cirrhosis Assessment/Plan: -appreciate GI consult -secondary to alcohol intake -patient counselled to stop drinking -outpatient evaluation with liver transplant Code(s): K74.60 - UNSPECIFIED CIRRHOSIS OF LIVER Qualifiers: Hepatic cirrhosis type: alcoholic cirrhosis Ascites presence: with ascites Qualified Code(s): K70.31 - Alcoholic cirrhosis of liver with ascites (4) Sepsis Assessment/Plan: -clinically improved -changed to cefazolin per ID Code(s): A41.9 - SEPSIS, UNSPECIFIED ORGANISM Qualifiers: Sepsis type: sepsis due to unspecified organism Qualified Code(s): A41.9 - Sepsis, unspecified organism (5) Hypokalemia Assessment/Plan: -replace Code(s): E87.6 - HYPOKALEMIA (6) Hypophosphatemia Assessment/Plan: -replace Code(s): E83.39 - OTHER DISORDERS OF PHOSPHORUS METABOLISM (7) Hypomagnesemia Assessment/Plan: -replace Code(s): E83.42 - HYPOMAGNESEMIA
[2016-04-18] MEDS: CEFAZOLIN 2 GM in DEXTROSE 5%-WATER - 50 ML IVPB SCH (17:20)
--- NOTE | 2016-04-18 18:18 | CONSULT ---
Consult - History of Present Illness History of Present Illness: 45 yo male admitted with fever, cough. Began to experience decreased urinary flow since last week. No dysuria, no prior history. PE today by DR Hebert revealed a tender prostate. Evidence of focal nephronia on MRI. Ucx positive for Klebsiella - Past Medical History Cardio/Vascular: Yes: HTN Pulmonary: Yes: Sleep Apnea Hepatobiliary: Yes: Cirrhosis Psych: Yes: Addictions (alcohol) Musculoskeletal: Yes: Chronic low back pain - Past Surgical History Past Surgical History: Yes: Arthrosocopy (left shoulder, right knee), Bariatric Surgery (gastric band) Additional Surgical History: ventral hernia repair - Alcohol/Substance Use Hx Alcohol Use: Yes Number of Drinks Daily: 12 History of Substance Use: reports: None - Smoking History Smoking history: Never smoked Have you smoked in the past 12 months: Yes Aproximately how many cigarettes per day: 0 - Social History Usual Living Arrangement: With Significant Other ADL: Independent 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 of Recent Travel: No Home Medications - Allergies Allergies/Adverse Reactions: Allergies Allergy/AdvReac Type Severity Reaction Status Date / Time No Known Allergies Allergy Verified 02/03/16 19:04 - Home Medications Home Medications: Ambulatory Orders Ibuprofen 600 mg PO PRN PRN 04/15/16 Family Disease History - Family Disease History Family Disease History: Other: Father (Alive: 65 alcoholic), Mother (Alive: 62: healthy), Brother (Alive: Healthy), Sister (Alive: Healthy), Son (Healthy), Daughter (Healthy) Other Family History: No family history of colorectal cancer or other GI malignancy Physical Exam- Vital Signs: Vital Signs Temperature 98.3 F 04/18/16 15:34 Pulse Rate 96 H 04/18/16 15:34 Respiratory Rate 18 04/18/16 15:34 Blood Pressure 95/55 04/18/16 15:34 O2 Sat by Pulse Oximetry (%) 100 04/18/16 09:00 Labs: CBC, BMP 04/18/16 06:55 04/17/16 06:00 Problem List - Problems (1) Acute prostatitis Assessment/Plan: antibiotics as per ID will start flomax repeat imaging to r/o abscess if fails to improve clinically Code(s): N41.0 - ACUTE PROSTATITIS
[2016-04-18] MEDS: TAMSULOSIN HCL 0.4 MG CAP.ER.24H (FP) PO SCH (18:31)
[2016-04-18] MEDS: MAGNESIUM OXIDE 400 MG TABLET (FP) PO SCH (21:25)
[2016-04-18] MEDS: guaiFENesin/CODEINE 5 ML UNIT-DOSE CUPS PO PRN (21:39)
[2016-04-18] MEDS: ZOLPIDEM TARTRATE 5 MG TABLET PO PRN (23:31)
[2016-04-19 00:12] LABS: HEP B SURFACE AB Non Reactive (.)
[2016-04-19] MEDS: CEFAZOLIN 2 GM in DEXTROSE 5%-WATER - 50 ML IVPB SCH ×3 (01:18→17:40)
[2016-04-19 08:52] LABS: MCH 34.1 pg (25.7-33.7); MCHC 33.5 g/dl (32.0-35.9); MEAN CELL VOLUME 101.9 fl (80-96); MEAN PLT VOLUME 9.6 fl (7.5-11.1); PLATELET COUNT 173 K/MM3 (134-434); WHITE BLOOD COUNT 12.1 K/mm3 (4.0-10.0)
[2016-04-19 09:17] LABS: ALBUMIN 1.7 g/dl (3.4-5.0); ANION GAP 5 (8-16); CALCIUM 7.3 mg/dL (8.5-10.1); CO2 29 mmol/L (21-32); GLUCOSE,RANDOM 102 mg/dL (74-106); MAGNESIUM 1.7 mg/dL (1.8-2.4); SGPT/ALT 62 U/L (12-78)
[2016-04-19 09:20] LABS: ALK PHOS 169 U/L (45-117); BILIRUBIN,TOTAL 2.4 mg/dL (0.2-1.0); CREATININE 0.6 mg/dL (0.7-1.3); PHOSPHOROUS 2.8 mg/dL (2.5-4.9); SGOT/AST 95 U/L (15-37); TOT PROT 5.3 g/dl (6.4-8.2)
[2016-04-19] MEDS ORDERED: PT OWN MED DRAWER 7, Y5N ONE (10:12)
[2016-04-19] MEDS: POTASSIUM CHLORIDE TABS 20 MEQ TABLET.ER (FP) PO SCH (10:31)
[2016-04-19] MEDS: MAGNESIUM OXIDE 400 MG TABLET (FP) PO SCH ×2 (10:31→21:28)
[2016-04-19] MEDS: SODIUM CHLORIDE 0.9%/KCL 1,000 ML IV SCH (10:32)
[2016-04-19] MEDS: TAMSULOSIN HCL 0.4 MG CAP.ER.24H (FP) PO SCH (10:32)
[2016-04-19] MEDS: NAPH,MB-DB/K PH,MBDB POWDER PACKET PO SCH ×2 (10:32→21:28)
[2016-04-19] MEDS: guaiFENesin/CODEINE 5 ML UNIT-DOSE CUPS PO PRN ×2 (10:32→18:52)
[2016-04-19] MEDS: FLUTICASONE PROP 0.05% 16 GM NASAL SPRAY NS SCH (10:32)
[2016-04-19] MEDS: PANTOPRAZOLE 20 MG TABLET (FP) PO SCH (10:32)
--- NOTE | 2016-04-19 15:31 | PN ---
Physical Exam: SUBJECTIVE: Patient seen and examined at bed side this morning. No new complaints, feels well. Last night had fever with profuse sweating, no rigors. OBJECTIVE: Vital Signs Period Temp Pulse Resp BP Sys/Sarmiento Pulse Ox Last 24 Hr 98.3 F-102.0 F 82-114 18-20 95-111/55-63 100-100 GENERAL: Patient is lying comfortably in bed, awake, alert, and fully oriented x 3, in no acute distress. IV Site: Peripheral Pain assessment; 05/24 HEAD: Normal with no signs of trauma. EYES: PEERLA, icterus +, no pallor EARS, NOSE, THROAT: Ears normal NECK: Supple, no JVD or mass LUNGS: Breath sounds equal, clear to auscultation bilaterally. No wheezes, and no crackles. No accessory muscle use. HEART: Regular rate and rhythm, normal S1 and S2 without murmur, rub or gallop. ABDOMEN: Soft, nontender, not distended, normoactive bowel sounds, no guarding, no rebound, no masses. No hepatomegaly or splenomegaly. MUSCULOSKELETAL: Normal range of motion at all joints. No bony deformities or tenderness. No CVA tenderness. UPPER EXTREMITIES: 2+ pulses, warm, well-perfused. No peripheral edema. LOWER EXTREMITIES: 2+ pulses, warm, well-perfused. No calf tenderness. No peripheral edema. NEUROLOGICAL: Cranial nerves II-XII intact. Normal speech. Normal gait. PSYCHIATRIC: Cooperative. Good eye contact. Appropriate mood and affect. SKIN: Tattos + over arms, back, abdomen, right leg +, Warm, dry, normal turgor, no rashes or lesions noted. Laboratory Results - last 24 hr 04/17/16 04/19/16 04/19/16 06:00 07:00 07:00 WBC Cancelled Corrected WBC (auto) Cancelled RBC Cancelled Hgb Cancelled Hct Cancelled MCV Cancelled MCHC Cancelled RDW Cancelled Plt Count Cancelled MPV Cancelled Neutrophils % Lymphocytes % Monocytes % Band Neutrophils Myelocytes Differential Comment Cancelled Platelet Estimate Cancelled Platelet Comment Cancelled RBC Morphology Cancelled Sodium 138 Potassium 4.1 D Chloride 104 Carbon Dioxide 29 D Anion Gap 5 L BUN 6 L Creatinine 0.6 L Creat Clearance w eGFR > 60 Random Glucose 102 Lactic Acid Calcium 7.3 L Phosphorus 2.8 D Magnesium 1.7 L Total Bilirubin 2.4 H D AST 95 H ALT 62 Alkaline Phosphatase 169 H Total Protein 5.3 L Albumin 1.7 L Hepatitis A IgM Ab Negative Hepatitis A Ab Total Positive H Hep Bs Antigen Negative Hep Bs Antibody Non reactive Hep B Core Total Ab Negative 04/19/16 04/19/16 07:00 07:00 WBC 12.1 H Corrected WBC (auto) RBC 3.21 L Hgb 11.0 L Hct 32.8 L MCV 101.9 H MCHC 33.5 RDW 16.0 H Plt Count 173 MPV 9.6 Neutrophils % 80.0 Lymphocytes % 9.0 D Monocytes % 5.0 Band Neutrophils 5.0 D Myelocytes 1 Differential Comment Platelet Estimate Platelet Comment RBC Morphology Sodium Potassium Chloride Carbon Dioxide Anion Gap BUN Creatinine Creat Clearance w eGFR Random Glucose Lactic Acid 1.338 Calcium Phosphorus Magnesium Total Bilirubin AST ALT Alkaline Phosphatase Total Protein Albumin Hepatitis A IgM Ab Hepatitis A Ab Total Hep Bs Antigen Hep Bs Antibody Hep B Core Total Ab Active Medications Generic Name Dose Route Start Last Admin Trade Name Freq PRN Reason Stop Dose Admin Fluticasone Propionate 1 spray 04/17/16 16:45 04/19/16 10:32 Flonase - NS 1 spray DAILY LALITHA Administration Guaifenesin/Codeine Phosphate 10 ml 04/17/16 16:41 04/19/16 10:32 Robitussin Ac - PO 10 ml Q8H PRN Administration COUGH Potassium Chloride/Sodium Chloride 1,000 mls @ 100 mls/hr 04/18/16 09:50 10:32 Ns+20 Meq Kcl - IV 100 mls/hr ASDIR LALITHA Administration Cefazolin Sodium 2 gm/ 50 mls @ 100 mls/hr 04/18/16 18:00 04/19/16 10:31 Dextrose IVPB 100 mls/hr Q8H-IV LALITHA Administration Ibuprofen 400 mg 04/16/16 16:25 04/17/16 13:20 Motrin - PO 400 mg Q6H PRN Administration PAIN Ibuprofen 600 mg 04/17/16 03:37 04/18/16 21:40 Caldolor Injection - IVPB 600 mg Q6H PRN Administration FEVER Magnesium Oxide 400 mg 04/18/16 22:00 04/19/16 10:31 Mag-Ox - PO 400 mg BID LALITHA Administration Pantoprazole Sodium 20 mg 04/18/16 10:00 04/19/16 10:32 Protonix - PO 20 mg DAILY LALITHA Administration Potassium Chloride 20 meq 04/17/16 10:00 04/19/16 10:31 K-Dur - PO 20 meq DAILY LALITHA Administration Potassium Phos/Sodium Phos 1 packet 04/18/16 22:00 04/19/16 10:32 Phos-Nak Packet - PO 1 packet BID LALITHA Administration Tamsulosin HCl 0.4 mg 04/18/16 18:30 04/19/16 10:32 Flomax - PO 0.4 mg DAILY@0830 LALITHA Administration Zolpidem Tartrate 5 mg 04/18/16 23:24 04/18/16 23:31 Ambien - PO 5 mg HS PRN Administration INSOMNIA 04/15/2015 CT abdomen/Pelvis- No evidence of pancreatic masses or acute/chronic pancreatitis. Inflammatory changes about the right colon suspicious for focal colitis. Mild inflammatory stranding about the left kidney, suggest prior pyelonephritis. Findings of consistent with advanced hepatocellular disease including a nodular liver and splenomegaly, free pelvic fluid superior to urinary bladder. 04/16/2016 USG Abdomen: Cholelithiasis. Hepatosplenomegaly. No evidence of hydronephrosis or acute renal abnormalities. 04/16/2016 MRCP of Abdomen : Contracted Gall bladder containing gall stones. Non diagnostic MRCP sequences due to significant motion. No biliary ductal dilatation. Peripancreatic edema extending inferiorly along the retroperitoneal planes associated with periportal and abdirahman hepatis edema suspicious for pancreatitis. No pancreatic ductal dilatation. Fatty liver vs Hepatocellular disease with splenomegaly. 2.3 cm left lower renal ple cyst. s/p gastric banding. ASSESSMENT/PLAN: 45 year old male with significant past medical history of ETOH abuse, multiple admissions, detox/withdrawal, obesity s/p lap band, left shoulder surgery, herniated disc presented to the ED with the chief complaints of High grade fever , chills, rigors, headache x 6 days. Admitted with the diagnosis of Sepsis secondary to pyelonephritis. # Sepsis most likely secondary to Pyelonephritis vs Prostatitis-Gram negative bacteremia Pancreatitis ruled out since there is no clinical evidence and CT abdomen negative for Pancreatitis. Possible Prostatitis because on [place] exam: tender swollen prostate found by Dr. Hebert. Patient presented with fever Tmax 103.2, HR-92 Presented with - High leukocyte count 10.2, bandemia. Urine showed 2+blood, leukocyte esterase +, Urine WBC [address] abdomen/Pelvis with contrast suggesting of prior pyelonephritis Repeat Blood culture positive for Lactose fermenting Gram negative bacilli. 04/15/2015 Blood culture/Urine culture showed klebsiella pneumoniae. Lactic acidosis resolved. Ceftriaxone changed to Zosyn and now changed to cephazolin to treat prostatitis. IV Metronidazole stopped USG abdomen done report mentioned above MRCP report mentioned above Flomax to be added CBC daily Monitor for Tmax # Elevated liver enzymes most likely due to cirrhosis H/O Alcohol abuse Chronic elevation of liver enzymes Avoid hepatotoxic drugs GI consult appreciated. As per GI, once patient is stabilized refer the patient to [facility] liver transplant/hepatology department. # Cholelithiasis: Acute cholecystitis less likely. Could be an incidental finding. # Severe headache-resolved # Electrolyte imbalance-Improving Hyponatremia, Hypokalemia- Resolved. occurred most likely due to intake of 10 L of fluids (Dilutional hyponatremia) Corrected calcium 9.14 Repeat CMP Rest as per primary. # ID HIV negative Hepatitis panel negative, positive Hep A Ab. # FEN On IV NS @ 100mls/hr. Electrolytes-mentioned above Sodium controlled diet. # Prophylaxis For DVT- On SCD's For GI- Pantoprazole Illness, Investigation and Plan of care explained to the patient. He verbalized understanding. Case seen and discussed with Dr. Varma. Thank you for the consultative opportunity. Visit type - Emergency Visit Emergency Visit: Yes ED Registration Date: 04/16/16 Care time: The patient presented to the Emergency Department on the above date and was hospitalized for further evaluation of their emergent condition. - New Patient This patient is new to me today: No - Critical Care Critical Care patient: No
--- NOTE | 2016-04-19 15:39 | PN ---
Teaching Attending Note Name of Resident: Marilia Reid ATTENDING PHYSICIAN STATEMENT I saw and evaluated the patient. I reviewed the resident's note and discussed the case with the resident. I agree with the resident's findings and plan as documented. SUBJECTIVE: still some fever at night, overall improved no diarrhea no abdominal pain OBJECTIVE: Vital Signs Period Temp Pulse Resp BP Sys/Sarmiento Pulse Ox Last 24 Hr 98.4 F-102.0 F 82-114 20-20 99-111/55-63 100-100 cor-rrr lungs clear abd soft,nt ext no edema CBC, BMP 04/19/16 07:00 04/19/16 07:00 Microbiology 04/18/16 03:40 Urine - Urine Clean Catch Urine Culture - Final 04/17/16 21:00 Blood - Peripheral Venous Blood Culture - Preliminary Lactose Fermenting Neg Bacilli 04/17/16 21:00 Blood - Peripheral Venous Blood Culture - Preliminary Lactose Fermenting Neg Bacilli 04/16/16 01:00 Urine - Urine Clean Catch Urine Culture - Final Klebsiella Pneumoniae 04/15/16 22:20 Blood - Peripheral Venous Blood Culture - Final Klebsiella Pneumoniae 04/15/16 22:20 Nasopharyngeal Swab Respiratory Virus Panel - Preliminary 04/15/16 22:20 Nasopharyngeal Swab Influenza Types A,B Antigen ([facility]U) - Final 04/15/16 22:20 Nasopharyngeal Swab - Final ASSESSMENT AND PLAN: klebsiella bacteremia klebsiella UTI prostatis nephronia continue cefazolin for repeat imaging if fevers persist
--- NOTE | 2016-04-19 18:26 | PN ---
GI Progress Note Subjective: No acute events + cough Tmax 102 yesterday evening - Objective Vital Signs: Vital Signs Temperature 99.3 F 04/19/16 10:00 Pulse Rate 114 H 04/19/16 10:00 Respiratory Rate 20 04/19/16 10:00 Blood Pressure 111/60 04/19/16 10:00 O2 Sat by Pulse Oximetry (%) 100 04/19/16 09:00 Constitutional: Calm Eyes: No: Sclera Icterus Gastrointestinal Inspection: No: Distention ...Auscultate: Yes: Normoactive Bowel Sounds ...Palpate: No: Tenderness Neurological: Yes: Alert, Oriented Labs: CBC, BMP 04/19/16 07:00 04/19/16 07:00 INR, PTT INR 2.05 (0.82-1.09) H 04/18/16 06:55 Problem List - Problems (1) Cirrhosis Assessment/Plan: Monitoring liver function AFP tumor marker pending Code(s): K74.60 - UNSPECIFIED CIRRHOSIS OF LIVER Qualifiers: Hepatic cirrhosis type: alcoholic cirrhosis Ascites presence: with ascites Qualified Code(s): K70.31 - Alcoholic cirrhosis of liver with ascites (2) Urinary tract infection Assessment/Plan: Suspected prostatitis Abx per ID Code(s): N39.0 - URINARY TRACT INFECTION, SITE NOT SPECIFIED (3) Cough Assessment/Plan: I advised Ms. quinonez's nurse of his complaint of cought and more labored breathing. I advised she call the PMD as he will need to be evaluated further Code(s): R05 - COUGH
[2016-04-19] MEDS: IBUPROFEN 800 MG/8 ML IJ IVPB PRN (18:45)
--- NOTE | 2016-04-19 18:59 | PN ---
Progress Note, Physician Chief Complaint: Mr Blount says he is slowing improving. Still with fevers but says he is sleeping better. Says the cough is better. Denies cp, sob, n/v. - Current Medication List Current Medications: Active Medications Fluticasone Propionate (Flonase -) 1 spray NS DAILY [facility] Last Admin: 04/19/16 10:32 Dose: 1 spray Guaifenesin/Codeine Phosphate (Robitussin Ac -) 10 ml PO Q8H PRN PRN Reason: COUGH Last Admin: 04/19/16 10:32 Dose: 10 ml Potassium Chloride/Sodium Chloride (Ns+20 Meq Kcl -) 1,000 mls @ 100 mls/hr IV ASDIR [facility] Last Admin: 04/19/16 10:32 Dose: 100 mls/hr Cefazolin Sodium 2 gm/ (Dextrose) 50 mls @ 100 mls/hr IVPB Q8H-IV [facility] Last Admin: 04/19/16 17:40 Dose: 100 mls/hr Ibuprofen (Motrin -) 400 mg PO Q6H PRN PRN Reason: PAIN Last Admin: 04/17/16 13:20 Dose: 400 mg Ibuprofen (Caldolor Injection -) 600 mg IVPB Q6H PRN PRN Reason: FEVER Last Admin: 04/19/16 18:45 Dose: 600 mg Magnesium Oxide (Mag-Ox -) 400 mg PO BID [facility] Last Admin: 04/19/16 10:31 Dose: 400 mg Pantoprazole Sodium (Protonix -) 20 mg PO DAILY [facility] Last Admin: 04/19/16 10:32 Dose: 20 mg Potassium Chloride (K-Dur -) 20 meq PO DAILY [facility] Last Admin: 04/19/16 10:31 Dose: 20 meq Potassium Phos/Sodium Phos (Phos-Nak Packet -) 1 packet PO BID [facility] Last Admin: 04/19/16 10:32 Dose: 1 packet Tamsulosin HCl (Flomax -) 0.4 mg PO DAILY@0830 [facility] Last Admin: 04/19/16 10:32 Dose: 0.4 mg Zolpidem Tartrate (Ambien -) 5 mg PO HS PRN PRN Reason: INSOMNIA Last Admin: 04/18/16 23:31 Dose: 5 mg - Objective Vital Signs: Vital Signs Temperature 99.3 F 04/19/16 10:00 Pulse Rate 114 H 01/06/17 10:00 Respiratory Rate 20 04/19/16 10:00 Blood Pressure 111/60 04/19/16 10:00 O2 Sat by Pulse Oximetry (%) 100 04/19/16 09:00 Constitutional: Yes: No Distress, Calm, Obese Cardiovascular: Yes: Regular Rate and Rhythm. No: Gallop, Murmur, Rub Respiratory: Yes: Regular, CTA Bilaterally. No: Rales, Rhonchi, Wheezes Gastrointestinal: Yes: Normal Bowel Sounds, Soft. No: Distention, Tenderness Extremities: Yes: WNL Edema: No Labs: CBC, BMP 04/19/16 07:00 04/19/16 07:00 INR, PTT INR 2.05 (0.82-1.09) H 04/18/16 06:55 Problem List - Problems (1) Pyelonephritis Code(s): N12 - TUBULO-INTERSTITIAL NEPHRITIS, NOT SPCF ACUTE OR CHRONIC (2) Pancreatitis Code(s): K85.9 - ACUTE PANCREATITIS, UNSPECIFIED * DO NOT USE * Qualifiers: Chronicity: acute Pancreatitis type: biliary Qualified Code(s): K85.1 - Biliary acute pancreatitis (3) Cirrhosis Code(s): K74.60 - UNSPECIFIED CIRRHOSIS OF LIVER Qualifiers: Hepatic cirrhosis type: alcoholic cirrhosis Ascites presence: with ascites Qualified Code(s): K70.31 - Alcoholic cirrhosis of liver with ascites (4) Sepsis Code(s): A41.9 - SEPSIS, UNSPECIFIED ORGANISM Qualifiers: Sepsis type: sepsis due to unspecified organism Qualified Code(s): A41.9 - Sepsis, unspecified organism (5) Hypokalemia Code(s): E87.6 - HYPOKALEMIA (6) Hypophosphatemia Code(s): E83.39 - OTHER DISORDERS OF PHOSPHORUS METABOLISM (7) Hypomagnesemia Code(s): E83.42 - HYPOMAGNESEMIA Assessment/Plan (1) Pyelonephritis/prostatitis Assessment/Plan: -appreciate urology assistance -ID following -continue cefazolin currently Code(s): N12 - TUBULO-INTERSTITIAL NEPHRITIS, NOT SPCF ACUTE OR CHRONIC (2) Pancreatitis Assessment/Plan: -MRCP showing possible pancreatitis -however clinically does not appear to be pancreatitis -GI following -monitor Code(s): K85.9 - ACUTE PANCREATITIS, UNSPECIFIED * DO NOT USE * Qualifiers: Chronicity: acute Pancreatitis type: biliary Qualified Code(s): K85.1 - Biliary acute pancreatitis (3) Cirrhosis Assessment/Plan: -appreciate GI consult -secondary to alcohol intake -patient counselled to stop drinking -outpatient evaluation with liver transplant Code(s): K74.60 - UNSPECIFIED CIRRHOSIS OF LIVER Qualifiers: Hepatic cirrhosis type: alcoholic cirrhosis Ascites presence: with ascites Qualified Code(s): K70.31 - Alcoholic cirrhosis of liver with ascites (4) Sepsis Assessment/Plan: -clinically improved -continue cefazolin -still with fevers, lactic acid normalized Code(s): A41.9 - SEPSIS, UNSPECIFIED ORGANISM Qualifiers: Sepsis type: sepsis due to unspecified organism Qualified Code(s): A41.9 - Sepsis, unspecified organism (5) Hypokalemia Assessment/Plan: -replaced Code(s): E87.6 - HYPOKALEMIA (6) Hypophosphatemia Assessment/Plan: -replaced Code(s): E83.39 - OTHER DISORDERS OF PHOSPHORUS METABOLISM (7) Hypomagnesemia Assessment/Plan: -replaced Code(s): E83.42 - HYPOMAGNESEMIA
[2016-04-19] MEDS: ZOLPIDEM TARTRATE 5 MG TABLET PO PRN (23:37)
[2016-04-20] MEDS: CEFAZOLIN 2 GM in DEXTROSE 5%-WATER - 50 ML IVPB SCH ×3 (02:00→17:14)
[2016-04-20 07:42] LABS: MCH 34.9 pg (25.7-33.7); MCHC 34.6 g/dl (32.0-35.9); MEAN CELL VOLUME 100.9 fl (80-96); MEAN PLT VOLUME 9.4 fl (7.5-11.1); PLATELET COUNT 192 K/MM3 (134-434); WHITE BLOOD COUNT 10.6 K/mm3 (4.0-10.0)
[2016-04-20 07:58] LABS: CALCIUM 7.7 mg/dL (8.5-10.1); CREATININE 0.5 mg/dL (0.7-1.3); MAGNESIUM 1.5 mg/dL (1.8-2.4); PHOSPHOROUS 3.1 mg/dL (2.5-4.9)
[2016-04-20] MEDS: TAMSULOSIN HCL 0.4 MG CAP.ER.24H (FP) PO SCH (08:17)
[2016-04-20] MEDS ORDERED: PT OWN MED DRAWER 7, Y5N ONE ×4 (10:03→23:27)
[2016-04-20] MEDS: POTASSIUM CHLORIDE TABS 20 MEQ TABLET.ER (FP) PO SCH (10:06)
[2016-04-20] MEDS: NAPH,MB-DB/K PH,MBDB POWDER PACKET PO SCH ×2 (10:07→22:08)
[2016-04-20] MEDS: MAGNESIUM OXIDE 400 MG TABLET (FP) PO SCH ×2 (10:07→22:07)
[2016-04-20] MEDS: PANTOPRAZOLE 20 MG TABLET (FP) PO SCH (10:07)
[2016-04-20] MEDS: FLUTICASONE PROP 0.05% 16 GM NASAL SPRAY NS SCH (10:08)
[2016-04-20] MEDS: SODIUM CHLORIDE 0.9%/KCL 1,000 ML IV SCH ×2 (10:12→12:41)
[2016-04-20] MEDS: guaiFENesin/CODEINE 5 ML UNIT-DOSE CUPS PO PRN ×2 (11:01→19:32)
[2016-04-20 11:48] LABS: PLATELET COMMENT2 NO CLOTTING DETECTED; PLATELET ESTIMATE ADEQUATE (NORMAL); SMUDGE CELLS FEW
[2016-04-20 11:49] LABS: ANISOCYTOSIS 1+; HYPOCHROMIA 1+; PLATELET COMMENT3 FEW GIANT PLTS
--- NOTE | 2016-04-20 12:03 | PN ---
Progress Note (short form) - Note Progress Note: voiding better on flomax Tm-101.2 yesterday afebrile today cont flomax Problem List - Problems (1) Acute prostatitis Code(s): N41.0 - ACUTE PROSTATITIS
--- NOTE | 2016-04-20 12:56 | PN ---
Progress Note, Physician Chief Complaint: Feels better with no pains. History of Present Illness: Patient with Acute UTI, septicemia, acute prostatitis, cirrhosis and pancreatitis seems to be responding to IV antibiotics. He is followed by ID, GI and consultants. OOB on own. - Current Medication List Current Medications: Active Medications Fluticasone Propionate (Flonase -) 1 spray NS DAILY [facility] Last Admin: 04/20/16 10:08 Dose: 1 spray Guaifenesin/Codeine Phosphate (Robitussin Ac -) 10 ml PO Q8H PRN PRN Reason: COUGH Last Admin: 04/20/16 11:01 Dose: 10 ml Potassium Chloride/Sodium Chloride (Ns+20 Meq Kcl -) 1,000 mls @ 100 mls/hr IV ASDIR [facility] Last Admin: 04/20/16 12:41 Dose: 100 mls/hr Cefazolin Sodium 2 gm/ (Dextrose) 50 mls @ 100 mls/hr IVPB Q8H-IV [facility] Last Admin: 04/20/16 10:07 Dose: 100 mls/hr Ibuprofen (Motrin -) 400 mg PO Q6H PRN PRN Reason: PAIN Last Admin: 04/17/16 13:20 Dose: 400 mg Ibuprofen (Caldolor Injection -) 600 mg IVPB Q6H PRN PRN Reason: FEVER Last Admin: 04/19/16 18:45 Dose: 600 mg Magnesium Oxide (Mag-Ox -) 400 mg PO BID [facility] Last Admin: 04/20/16 10:07 Dose: 400 mg Pantoprazole Sodium (Protonix -) 20 mg PO DAILY [facility] Last Admin: 04/20/16 10:07 Dose: 20 mg Potassium Chloride (K-Dur -) 20 meq PO DAILY [facility] Last Admin: 04/20/16 10:06 Dose: 20 meq Potassium Phos/Sodium Phos (Phos-Nak Packet -) 1 packet PO BID [facility] Last Admin: 04/20/16 10:07 Dose: 1 packet Tamsulosin HCl (Flomax -) 0.4 mg PO DAILY@0830 [facility] Last Admin: 04/20/16 08:17 Dose: 0.4 mg Zolpidem Tartrate (Ambien -) 5 mg PO HS PRN PRN Reason: INSOMNIA Last Admin: 04/19/16 23:37 Dose: 5 mg - Objective Vital Signs: Vital Signs Temperature 99.1 F 04/20/16 08:45 Pulse Rate 88 04/20/16 08:45 Respiratory Rate 18 04/20/16 08:45 Blood Pressure 92/53 04/20/16 08:45 O2 Sat by Pulse Oximetry (%) 100 04/19/16 21:00 Constitutional: Yes: Calm Eyes: Yes: Conjunctiva Clear Cardiovascular: Yes: Regular Rate and Rhythm Respiratory: Yes: Rhonchi (at both bases) Gastrointestinal: Yes: Abdomen, Obese. No: Tenderness Genitourinary: No: [place] Present Edema: No Neurological: Yes: Alert, Oriented Labs: CBC, BMP 04/20/16 06:00 04/20/16 06:00 INR, PTT INR 2.05 (0.82-1.09) H 04/18/16 06:55 Problem List - Problems (1) Acute prostatitis Assessment/Plan: On IV RX Urinating better now. Code(s): N41.0 - ACUTE PROSTATITIS (2) Cirrhosis Assessment/Plan: Followed by GI MD ? + ascites Code(s): K74.60 - UNSPECIFIED CIRRHOSIS OF LIVER Qualifiers: Hepatic cirrhosis type: alcoholic cirrhosis Ascites presence: with ascites Qualified Code(s): K70.31 - Alcoholic cirrhosis of liver with ascites (3) Cough Assessment/Plan: Few rhonchi on chest exam. Incentive spirometry ordered. Code(s): R05 - COUGH (4) Hypomagnesemia Assessment/Plan: Magnesium 1.5 Will Rx with 2 Gm IVPB Code(s): E83.42 - HYPOMAGNESEMIA
[2016-04-20] MEDS ORDERED: MAGNESIUM SULF 50% (8.12 MEQ/2 ML-1 GM VIAL) IVPB ONE (13:30)
[2016-04-20] MEDS: IBUPROFEN 400 MG TABLET (FP) PO PRN (17:14)
[2016-04-20] MEDS: IBUPROFEN 800 MG/8 ML IJ IVPB PRN (18:16)
[2016-04-20] MEDS: ZOLPIDEM TARTRATE 5 MG TABLET PO PRN (22:41)
[2016-04-21] MEDS: SODIUM CHLORIDE 0.9%/KCL 1,000 ML IV SCH (00:35)
[2016-04-21] MEDS ORDERED: PT OWN MED DRAWER 7, Y5N ONE ×6 (01:18→21:28)
[2016-04-21] MEDS: CEFAZOLIN 2 GM in DEXTROSE 5%-WATER - 50 ML IVPB SCH ×3 (01:23→17:09)
[2016-04-21 07:36] LABS: BASOPHIL 0.9 % (0-2.0); MCH 34.4 pg (25.7-33.7); MCHC 33.6 g/dl (32.0-35.9); MEAN CELL VOLUME 102.5 fl (80-96); MEAN PLT VOLUME 9.1 fl (7.5-11.1); NEUTROPHILS 69.3 % (42.8-82.8); PLATELET COUNT 217 K/MM3 (134-434); RDW 16.5 % (11.9-15.9); WHITE BLOOD COUNT 9.6 K/mm3 (4.0-10.0)
[2016-04-21 07:41] LABS: INR 1.83 (0.82-1.09); PROTHROMBIN TIME (PATIENT) 20.4 SEC (9.98-11.88)
[2016-04-21 07:50] LABS: CALCIUM 7.7 mg/dL (8.5-10.1); CREATININE 0.5 mg/dL (0.7-1.3); MAGNESIUM 1.6 mg/dL (1.8-2.4)
[2016-04-21] MEDS: TAMSULOSIN HCL 0.4 MG CAP.ER.24H (FP) PO SCH (08:15)
[2016-04-21] MEDS: MAGNESIUM OXIDE 400 MG TABLET (FP) PO SCH ×2 (10:18→21:20)
[2016-04-21] MEDS: POTASSIUM CHLORIDE TABS 20 MEQ TABLET.ER (FP) PO SCH (10:18)
[2016-04-21] MEDS: PANTOPRAZOLE 20 MG TABLET (FP) PO SCH (10:19)
[2016-04-21] MEDS: guaiFENesin/CODEINE 5 ML UNIT-DOSE CUPS PO PRN ×3 (10:19→21:21)
[2016-04-21] MEDS: NAPH,MB-DB/K PH,MBDB POWDER PACKET PO SCH ×2 (10:19→21:21)
[2016-04-21] MEDS: FLUTICASONE PROP 0.05% 16 GM NASAL SPRAY NS SCH (10:19)
[2016-04-21] MEDS ORDERED: MAGNESIUM SULF 50% (8.12 MEQ/2 ML-1 GM VIAL) IVPB ONE (13:00)
--- NOTE | 2016-04-21 13:08 | PN ---
Progress Note, Physician Chief Complaint: No complaints; had BM and sleeping better. History of Present Illness: Multiple comorbidities in patient with septicemia from Acute Prostatitis. Tolerating diet and had a normal BM. Urinating well and no chills or fever. - Current Medication List Current Medications: Active Medications Fluticasone Propionate (Flonase -) 1 spray NS DAILY [facility] Last Admin: 04/21/16 10:19 Dose: 1 spray Guaifenesin/Codeine Phosphate (Robitussin Ac -) 10 ml PO Q8H PRN PRN Reason: COUGH Last Admin: 04/21/16 10:19 Dose: 10 ml Potassium Chloride/Sodium Chloride (Ns+20 Meq Kcl -) 1,000 mls @ 100 mls/hr IV ASDIR [facility] Last Admin: 04/21/16 00:35 Dose: 100 mls/hr Cefazolin Sodium 2 gm/ (Dextrose) 50 mls @ 100 mls/hr IVPB Q8H-IV [facility] Last Admin: 04/21/16 10:19 Dose: 100 mls/hr Ibuprofen (Motrin -) 400 mg PO Q6H PRN PRN Reason: PAIN Last Admin: 04/20/16 17:14 Dose: 400 mg Ibuprofen (Caldolor Injection -) 600 mg IVPB Q6H PRN PRN Reason: FEVER Last Admin: 04/20/16 18:16 Dose: 600 mg Magnesium Oxide (Mag-Ox -) 400 mg PO BID [facility] Last Admin: 04/21/16 10:18 Dose: 400 mg Pantoprazole Sodium (Protonix -) 20 mg PO DAILY [facility] Last Admin: 04/21/16 10:19 Dose: 20 mg Potassium Chloride (K-Dur -) 20 meq PO DAILY [facility] Last Admin: 04/21/16 10:18 Dose: 20 meq Potassium Phos/Sodium Phos (Phos-Nak Packet -) 1 packet PO BID [facility] Last Admin: 04/21/16 10:19 Dose: 1 packet Sodium Chloride ([place] Nasal [place] -) 2 spray NS BID PRN PRN Reason: NASAL CONGESTION Tamsulosin HCl (Flomax -) 0.4 mg PO DAILY@0830 [facility] Last Admin: 04/21/16 08:15 Dose: 0.4 mg Zolpidem Tartrate (Ambien -) 5 mg PO HS PRN PRN Reason: INSOMNIA Last Admin: 04/20/16 22:41 Dose: 5 mg - Objective Vital Signs: Vital Signs Temperature 99.8 F H 04/21/16 08:40 Pulse Rate 105 H 04/21/16 08:40 Respiratory Rate 18 04/21/16 08:40 Blood Pressure 119/78 04/21/16 08:40 O2 Sat by Pulse Oximetry (%) 100 04/20/16 21:00 Constitutional: Yes: Calm Eyes: Yes: Conjunctiva Clear Cardiovascular: Yes: Tachycardia Respiratory: Yes: Cough, Rhonchi (at both bases) Gastrointestinal: Yes: Soft Edema: No (venous duplex negative) Neurological: Yes: Alert, Oriented Labs: CBC, BMP 04/21/16 06:00 04/21/16 06:00 INR, PTT INR 1.83 (0.82-1.09) H 04/21/16 06:00 Problem List - Problems (1) Acute prostatitis Assessment/Plan: On IV antibiotics and urinating better. Code(s): N41.0 - ACUTE PROSTATITIS (2) Cirrhosis Assessment/Plan: liver chem stable Code(s): K74.60 - UNSPECIFIED CIRRHOSIS OF LIVER Qualifiers: Hepatic cirrhosis type: alcoholic cirrhosis Ascites presence: with ascites Qualified Code(s): K70.31 - Alcoholic cirrhosis of liver with ascites (3) Cough Assessment/Plan: Rhonchi on exam; using incentive spirometry. Code(s): R05 - COUGH (4) Hypomagnesemia Assessment/Plan: Still low again today Mag Sulfate 2Gm IVPB ordered. Code(s): E83.42 - HYPOMAGNESEMIA
--- NOTE | 2016-04-21 13:32 | PN ---
Progress Note (short form) - Note Progress Note: feels better notes some cough and wheeze still receiving IVF eating well Vital Signs Period Temp Pulse Resp BP Sys/Sarmiento Pulse Ox Last 24 Hr 98.7 F-100.1 F 79-105 18-20 110-121/67-78 100 cor-rrr lungs scattered wheeze, crackles abd soft,nt ext no edema CBC, BMP 04/21/16 06:00 04/21/16 06:00 Microbiology 04/17/16 21:00 Blood - Peripheral Venous Blood Culture - Final Klebsiella Pneumoniae 04/17/16 21:00 Blood - Peripheral Venous Blood Culture - Final Klebsiella Pneumoniae 04/18/16 03:40 Urine - Urine Clean Catch Urine Culture - Final 04/16/16 01:00 Urine - Urine Clean Catch Urine Culture - Final Klebsiella Pneumoniae 04/15/16 22:20 Blood - Peripheral Venous Blood Culture - Final Klebsiella Pneumoniae 04/15/16 22:20 Nasopharyngeal Swab Respiratory Virus Panel - Preliminary 04/15/16 22:20 Nasopharyngeal Swab Influenza Types A,B Antigen (LIU) - Final 04/15/16 22:20 Nasopharyngeal Swab - Final Current Medications Fluticasone Propionate (Flonase -) 1 spray NS DAILY [facility] Last Admin: 04/21/16 10:19 Dose: 1 spray Guaifenesin/Codeine Phosphate (Robitussin Ac -) 10 ml PO Q8H PRN PRN Reason: COUGH Last Admin: 04/21/16 10:19 Dose: 10 ml Cefazolin Sodium 2 gm/ (Dextrose) 50 mls @ 100 mls/hr IVPB Q8H-IV [facility] Last Admin: 04/21/16 10:19 Dose: 100 mls/hr Ibuprofen (Motrin -) 400 mg PO Q6H PRN PRN Reason: PAIN Last Admin: 04/20/16 17:14 Dose: 400 mg Ibuprofen (Caldolor Injection -) 600 mg IVPB Q6H PRN PRN Reason: FEVER Last Admin: 04/20/16 18:16 Dose: 600 mg Magnesium Oxide (Mag-Ox -) 400 mg PO BID [facility] Last Admin: 04/21/16 10:18 Dose: 400 mg Pantoprazole Sodium (Protonix -) 20 mg PO DAILY [facility] Last Admin: 04/21/16 10:19 Dose: 20 mg Potassium Chloride (K-Dur -) 20 meq PO DAILY [facility] Last Admin: 04/21/16 10:18 Dose: 20 meq Potassium Phos/Sodium Phos (Phos-Nak Packet -) 1 packet PO BID [facility] Last Admin: 04/21/16 10:19 Dose: 1 packet Sodium Chloride ([place] Nasal [place] -) 2 spray NS BID PRN PRN Reason: NASAL CONGESTION Tamsulosin HCl (Flomax -) 0.4 mg PO DAILY@0830 [facility] Last Admin: 04/21/16 08:15 Dose: 0.4 mg Zolpidem Tartrate (Ambien -) 5 mg PO HS PRN PRN Reason: INSOMNIA Last Admin: 04/20/16 22:41 Dose: 5 mg a/p klebsiella bacteremia prostatitis nephronia liver cirrhosis continue cefazolin would d/c ivf if cough/wheeze persists would get chest xray reculture for fever greater then 100.8 influenza screen d/w Dr Jha
[2016-04-21] MEDS: IBUPROFEN 400 MG TABLET (FP) PO PRN (14:00)
[2016-04-21] MEDS ORDERED: IBUPROFEN 800 MG/8 ML IJ IVPB PRN (14:29)
[2016-04-21] MEDS ORDERED: CYCLOBENZAPRINE HCL 10 MG TABLET (FP) PO PRN (14:30)
[2016-04-21] MEDS: ZOLPIDEM TARTRATE 5 MG TABLET PO PRN (22:45)
[2016-04-22] MEDS: CEFAZOLIN 2 GM in DEXTROSE 5%-WATER - 50 ML IVPB SCH ×3 (01:36→17:29)
[2016-04-22 08:01] LABS: BASOPHIL 0.9 % (0-2.0); EOSINOPHIL 2.2 % (0-4.5); MCH 34.8 pg (25.7-33.7); MCHC 34.1 g/dl (32.0-35.9); MEAN PLT VOLUME 9.1 fl (7.5-11.1); NEUTROPHILS 66.6 % (42.8-82.8); PLATELET COUNT 220 K/MM3 (134-434)
[2016-04-22] MEDS: FLUTICASONE PROP 0.05% 16 GM NASAL SPRAY NS SCH (09:20)
[2016-04-22] MEDS: PANTOPRAZOLE 20 MG TABLET (FP) PO SCH (09:44)
[2016-04-22] MEDS: MAGNESIUM OXIDE 400 MG TABLET (FP) PO SCH ×2 (09:45→22:00)
[2016-04-22] MEDS: POTASSIUM CHLORIDE TABS 20 MEQ TABLET.ER (FP) PO SCH (09:45)
[2016-04-22] MEDS: TAMSULOSIN HCL 0.4 MG CAP.ER.24H (FP) PO SCH (09:45)
[2016-04-22] MEDS: NAPH,MB-DB/K PH,MBDB POWDER PACKET PO SCH ×2 (09:46→22:01)
[2016-04-22] MEDS: SODIUM CHLORIDE NASAL SPRAY 44 ML BOTTLE NS PRN ×2 (09:46→10:11)
[2016-04-22] MEDS: guaiFENesin/CODEINE 5 ML UNIT-DOSE CUPS PO PRN ×2 (09:55→15:18)
--- NOTE | 2016-04-22 14:55 | PN ---
Physical Exam: SUBJECTIVE:Patient seen and examined at bed side this morning. Complaints of dry cough since 3 days. No fevers since 24 hours. Denies headache, fever, chest pain, sob, palpitation, abdominal pain, nausea or vomiting. OBJECTIVE: Vital Signs Period Temp Pulse Resp BP Sys/Sarmiento Pulse Ox Last 24 Hr 98.5 F-99.3 F 80-102 16-20 112-128/64-75 100-100 GENERAL: Patient is lying comfortably in bed, awake, alert, and fully oriented x 3, in no acute distress. IV Site: Peripheral Pain assessment; 05/24 HEAD: Normal with no signs of trauma. EYES: PEERLA, icterus +, no pallor EARS, NOSE, THROAT: Ears normal NECK: Supple, no JVD or mass LUNGS: Breath sounds equal, clear to auscultation bilaterally. No wheezes, and no crackles. No accessory muscle use. HEART: Regular rate and rhythm, normal S1 and S2 without murmur, rub or gallop. ABDOMEN: Soft, nontender, not distended, normoactive bowel sounds, no guarding, no rebound, no masses. No hepatomegaly or splenomegaly. MUSCULOSKELETAL: Normal range of motion at all joints. No bony deformities or tenderness. No CVA tenderness. UPPER EXTREMITIES: 2+ pulses, warm, well-perfused. No peripheral edema. LOWER EXTREMITIES: 2+ pulses, warm, well-perfused. No calf tenderness. No peripheral edema. NEUROLOGICAL: Cranial nerves II-XII intact. Normal speech. Normal gait. PSYCHIATRIC: Cooperative. Good eye contact. Appropriate mood and affect. SKIN: [place] + over arms, back, abdomen, right leg +, Warm, dry, normal turgor, no rashes or lesions noted. Laboratory Results - last 24 hr 04/22/16 04/22/16 06:00 06:00 WBC 9.0 RBC 3.13 L Hgb 10.9 L Hct 31.9 L MCV 102.0 H MCHC 34.1 RDW 16.0 H Plt Count 220 MPV 9.1 Neutrophils % 66.6 Lymphocytes % 16.9 Monocytes % 13.4 H Eosinophils % 2.2 Basophils % 0.9 Magnesium 1.5 L Active Medications Generic Name Dose Route Start Last Admin Trade Name Freq PRN Reason Stop Dose Admin Cyclobenzaprine HCl 5 mg 04/21/16 14:30 04/22/16 09:45 Flexeril - PO 5 mg TID PRN Administration MUSCLE SPASMS Fluticasone Propionate 1 spray 04/17/16 16:45 04/21/16 10:19 Flonase - NS 1 spray DAILY [facility] Administration Guaifenesin/Codeine Phosphate 10 ml 04/21/16 14:30 04/22/16 09:55 Robitussin Ac - PO 10 ml Q4H PRN Administration COUGH Cefazolin Sodium 2 gm/ 50 mls @ 100 mls/hr 04/18/16 18:00 04/22/16 09:44 Dextrose IVPB 100 mls/hr Q8H-IV [facility] Administration Ibuprofen 400 mg 04/16/16 16:25 04/21/16 14:00 Motrin - PO 400 mg Q6H PRN Administration PAIN Ibuprofen 400 mg 04/21/16 14:29 Caldolor Injection - IVPB Q6H PRN FEVER Magnesium Oxide 400 mg 04/18/16 22:00 04/22/16 09:45 Mag-Ox - PO 400 mg BID [facility] Administration Oxycodone HCl 5 mg 04/21/16 14:34 Roxicodone - PO Q6H PRN PAIN Pantoprazole Sodium 20 mg 04/18/16 10:00 04/22/16 09:44 Protonix - PO 20 mg DAILY [facility] Administration Potassium Chloride 20 meq 04/17/16 10:00 04/22/16 09:45 K-Dur - PO 20 meq DAILY [facility] Administration Potassium Phos/Sodium Phos 1 packet 04/18/16 22:00 04/22/16 09:46 Phos-Nak Packet - PO 1 packet BID [facility] Administration Sodium Chloride 2 spray 04/20/16 14:10 04/22/16 10:11 [place] Nasal [place] - NS 2 spray BID PRN Administration NASAL CONGESTION Tamsulosin HCl 0.4 mg 04/18/16 18:30 04/22/16 09:45 Flomax - PO 0.4 mg DAILY@0830 [facility] Administration Zolpidem Tartrate 5 mg 04/18/16 23:24 04/21/16 22:45 Ambien - PO 5 mg HS PRN Administration INSOMNIA 04/15/2015 CT abdomen/Pelvis- No evidence of pancreatic masses or acute/chronic pancreatitis. Inflammatory changes about the right colon suspicious for focal colitis. Mild inflammatory stranding about the left kidney, suggest prior pyelonephritis. Findings of consistent with advanced hepatocellular disease including a nodular liver and splenomegaly, free pelvic fluid superior to urinary bladder. 04/16/2016 [facility] Abdomen: Cholelithiasis. Hepatosplenomegaly. No evidence of hydronephrosis or acute renal abnormalities. 04/16/2016 MRCP of Abdomen : Contracted Gall bladder containing gall stones. Non diagnostic MRCP sequences due to significant motion. No biliary ductal dilatation. Peripancreatic edema extending inferiorly along the retroperitoneal planes associated with periportal and abdirahman hepatis edema suspicious for pancreatitis. No pancreatic ductal dilatation. Fatty liver vs Hepatocellular disease with splenomegaly. 2.3 cm left lower renal ple cyst. s/p gastric banding. ASSESSMENT/PLAN: 45 year old male with significant past medical history of ETOH abuse, multiple admissions, detox/withdrawal, obesity s/p lap band, left shoulder surgery, herniated disc presented to the ED with the chief complaints of High grade fever , chills, rigors, headache x 6 days. Admitted with the diagnosis of Sepsis secondary to pyelonephritis. # Sepsis most likely secondary to Pyelonephritis vs Prostatitis-Gram negative bacteremia- RESOLVING Pancreatitis ruled out since there is no clinical evidence and CT abdomen negative for Pancreatitis. Possible Prostatitis because on HI exam: tender swollen prostate found by Dr. Hebert. Patient presented with fever Tmax 103.2, HR-92 Presented with - High leukocyte count 10.2, bandemia. Urine showed 2+blood, leukocyte esterase +, Urine WBC [address] abdomen/Pelvis with contrast suggesting of prior pyelonephritis Repeat Blood culture positive for Lactose fermenting Gram negative bacilli. 04/15/2015 Blood culture/Urine culture showed klebsiella pneumoniae. Lactic acidosis resolved. Ceftriaxone changed to Zosyn and now changed to cephazolin 04/18/2016 to treat prostatitis. IV Metronidazole stopped USG abdomen done report mentioned above MRCP report mentioned above Flomax continued CBC daily Monitor for Tmax # Elevated liver enzymes most likely due to cirrhosis H/O Alcohol abuse Chronic elevation of liver enzymes Avoid hepatotoxic drugs GI consult appreciated. As per GI, once patient is stabilized refer the patient to [facility] liver transplant/hepatology department. # Cholelithiasis: Acute cholecystitis less likely. Could be an incidental finding. # Severe headache-resolved # Electrolyte imbalance-Improving Hyponatremia, Hypokalemia- Resolved. occurred most likely due to intake of 10 L of fluids (Dilutional hyponatremia) Corrected calcium 9.14 Repeat CMP Rest as per primary. # ID HIV negative Hepatitis panel negative, positive Hep A Ab. # FEN On IV NS @ 100mls/hr. Electrolytes-mentioned above Sodium controlled diet. # Prophylaxis For DVT- On SCD's For GI- Pantoprazole Illness, Investigation and Plan of care explained to the patient. He verbalized understanding. Will discuss case with Dr. Varma. Thank you for the consultative opportunity. Visit type - Emergency Visit Emergency Visit: Yes ED Registration Date: 04/16/16 Care time: The patient presented to the Emergency Department on the above date and was hospitalized for further evaluation of their emergent condition. - New Patient This patient is new to me today: No - Critical Care Critical Care patient: No
--- NOTE | 2016-04-22 15:02 | PN ---
Progress Note (short form) - Note Progress Note: feels better cough has resolved Vital Signs Period Temp Pulse Resp BP Sys/Sarmiento Pulse Ox Last 24 Hr 98.5 F-99.3 F 80-102 16-20 112-128/64-75 100-100 cor-rrr lungs clear abd soft,nt ext no edema CBC, BMP 04/22/16 06:00 04/21/16 06:00 Microbiology 04/21/16 14:50 Nasopharyngeal Swab Influenza Types A,B Antigen (LIU) - Final 04/21/16 14:50 Nasopharyngeal Swab - Final 04/17/16 21:00 Blood - Peripheral Venous Blood Culture - Final Klebsiella Pneumoniae 04/17/16 21:00 Blood - Peripheral Venous Blood Culture - Final Klebsiella Pneumoniae 04/18/16 03:40 Urine - Urine Clean Catch Urine Culture - Final 04/16/16 01:00 Urine - Urine Clean Catch Urine Culture - Final Klebsiella Pneumoniae 04/15/16 22:20 Blood - Peripheral Venous Blood Culture - Final Klebsiella Pneumoniae 04/15/16 22:20 Nasopharyngeal Swab Respiratory Virus Panel - Preliminary 04/15/16 22:20 Nasopharyngeal Swab Influenza Types A,B Antigen (LIU) - Final 04/15/16 22:20 Nasopharyngeal Swab - Final Current Medications Fluticasone Propionate (Flonase -) 1 spray NS DAILY LALITHA Last Admin: 04/21/16 10:19 Dose: 1 spray Guaifenesin/Codeine Phosphate (Robitussin Ac -) 10 ml PO Q8H PRN PRN Reason: COUGH Last Admin: 04/21/16 10:19 Dose: 10 ml Cefazolin Sodium 2 gm/ (Dextrose) 50 mls @ 100 mls/hr IVPB Q8H-IV LALITHA Last Admin: 04/21/16 10:19 Dose: 100 mls/hr Ibuprofen (Motrin -) 400 mg PO Q6H PRN PRN Reason: PAIN Last Admin: 04/20/16 17:14 Dose: 400 mg Ibuprofen (Caldolor Injection -) 600 mg IVPB Q6H PRN PRN Reason: FEVER Last Admin: 04/20/16 18:16 Dose: 600 mg Magnesium Oxide (Mag-Ox -) 400 mg PO BID LALITHA Last Admin: 04/21/16 10:18 Dose: 400 mg Pantoprazole Sodium (Protonix -) 20 mg PO DAILY [facility] Last Admin: 04/21/16 10:19 Dose: 20 mg Potassium Chloride (K-Dur -) 20 meq PO DAILY [facility] Last Admin: 04/21/16 10:18 Dose: 20 meq Potassium Phos/Sodium Phos (Phos-Nak Packet -) 1 packet PO BID [facility] Last Admin: 04/21/16 10:19 Dose: 1 packet Sodium Chloride ([place] Nasal [place] -) 2 spray NS BID PRN PRN Reason: NASAL CONGESTION Tamsulosin HCl (Flomax -) 0.4 mg PO DAILY@0830 [facility] Last Admin: 04/21/16 08:15 Dose: 0.4 mg Zolpidem Tartrate (Ambien -) 5 mg PO HS PRN PRN Reason: INSOMNIA Last Admin: 04/20/16 22:41 Dose: 5 mg a/p klebsiella bacteremia prostatitis nephronia liver cirrhosis continue cefazolin would d/c ivf low grade temp will order blood cultures
[2016-04-22] MEDS: IBUPROFEN 400 MG TABLET (FP) PO PRN (15:20)
[2016-04-22] MEDS ORDERED: MAGNESIUM SULF 50% (8.12 MEQ/2 ML-1 GM VIAL) IVPB ONE (15:52)
--- NOTE | 2016-04-22 17:18 | PN ---
Progress Note, Physician Chief Complaint: Mr Blount says he feels much better today. Is now able to urinate without pain. No cp, sob, n/v. - Current Medication List Current Medications: Active Medications Cyclobenzaprine HCl (Flexeril -) 5 mg PO TID PRN PRN Reason: MUSCLE SPASMS Last Admin: 04/22/16 09:45 Dose: 5 mg Fluticasone Propionate (Flonase -) 1 spray NS DAILY [facility] Last Admin: 04/22/16 09:20 Dose: 1 spray Guaifenesin/Codeine Phosphate (Robitussin Ac -) 10 ml PO Q4H PRN PRN Reason: COUGH Last Admin: 04/22/16 15:18 Dose: 10 ml Cefazolin Sodium 2 gm/ (Dextrose) 50 mls @ 100 mls/hr IVPB Q8H-IV LALITHA Last Admin: 04/22/16 09:44 Dose: 100 mls/hr Ibuprofen (Motrin -) 400 mg PO Q6H PRN PRN Reason: PAIN Last Admin: 04/22/16 15:20 Dose: 400 mg Ibuprofen (Caldolor Injection -) 400 mg IVPB Q6H PRN PRN Reason: FEVER Magnesium Oxide (Mag-Ox -) 400 mg PO BID [facility] Last Admin: 04/22/16 09:45 Dose: 400 mg Oxycodone HCl (Roxicodone -) 5 mg PO Q6H PRN PRN Reason: PAIN Pantoprazole Sodium (Protonix -) 20 mg PO DAILY [facility] Last Admin: 04/22/16 09:44 Dose: 20 mg Potassium Chloride (K-Dur -) 20 meq PO DAILY [facility] Last Admin: 04/22/16 09:45 Dose: 20 meq Potassium Phos/Sodium Phos (Phos-Nak Packet -) 1 packet PO BID [facility] Last Admin: 04/22/16 09:46 Dose: 1 packet Sodium Chloride ([place] Nasal [place] -) 2 spray NS BID PRN PRN Reason: NASAL CONGESTION Last Admin: 04/22/16 10:11 Dose: 2 spray Tamsulosin HCl (Flomax -) 0.4 mg PO DAILY@0830 [facility] Last Admin: 04/22/16 09:45 Dose: 0.4 mg Zolpidem Tartrate (Ambien -) 5 mg PO HS PRN PRN Reason: INSOMNIA Last Admin: 04/21/16 22:45 Dose: 5 mg - Objective Vital Signs: Vital Signs Temperature 100.1 F H 04/22/16 15:45 Pulse Rate 109 H 04/22/16 15:45 Respiratory Rate 18 04/22/16 15:45 Blood Pressure 117/77 04/22/16 15:45 O2 Sat by Pulse Oximetry (%) 100 04/22/16 09:00 Constitutional: Yes: No Distress, Calm, Obese Cardiovascular: Yes: Regular Rate and Rhythm. No: Gallop, Murmur, Rub Respiratory: Yes: Regular, CTA Bilaterally. No: Rales, Rhonchi, Wheezes Gastrointestinal: Yes: Normal Bowel Sounds, Soft. No: Distention, Tenderness Extremities: Yes: WNL Edema: No Labs: CBC, BMP 04/22/16 06:00 04/21/16 06:00 INR, PTT INR 1.83 (0.82-1.09) H 04/21/16 06:00 Problem List - Problems (1) Pyelonephritis Code(s): N12 - TUBULO-INTERSTITIAL NEPHRITIS, NOT SPCF ACUTE OR CHRONIC (2) Pancreatitis Code(s): K85.9 - ACUTE PANCREATITIS, UNSPECIFIED * DO NOT USE * Qualifiers: Chronicity: acute Pancreatitis type: biliary Qualified Code(s): K85.1 - Biliary acute pancreatitis (3) Cirrhosis Code(s): K74.60 - UNSPECIFIED CIRRHOSIS OF LIVER Qualifiers: Hepatic cirrhosis type: alcoholic cirrhosis Ascites presence: with ascites Qualified Code(s): K70.31 - Alcoholic cirrhosis of liver with ascites (4) Sepsis Code(s): A41.9 - SEPSIS, UNSPECIFIED ORGANISM Qualifiers: Sepsis type: sepsis due to unspecified organism Qualified Code(s): A41.9 - Sepsis, unspecified organism (5) Hypokalemia Code(s): E87.6 - HYPOKALEMIA (6) Hypophosphatemia Code(s): E83.39 - OTHER DISORDERS OF PHOSPHORUS METABOLISM (7) Hypomagnesemia Code(s): E83.42 - HYPOMAGNESEMIA Assessment/Plan (1) Pyelonephritis/prostatitis Assessment/Plan: -much improved -continue cefazolin currently -defer to ID to change to oral antibiotics -can discharge home once tolerating antibiotics Code(s): N12 - TUBULO-INTERSTITIAL NEPHRITIS, NOT SPCF ACUTE OR CHRONIC (2) Pancreatitis Assessment/Plan: -seen on MRCP, but patient without signs of pancreatitis Code(s): K85.9 - ACUTE PANCREATITIS, UNSPECIFIED * DO NOT USE * Qualifiers: Chronicity: acute Pancreatitis type: biliary Qualified Code(s): K85.1 - Biliary acute pancreatitis (3) Cirrhosis Assessment/Plan: -outpatient evaluation for liver transplant -patient needs to stop alcohol consumption Code(s): K74.60 - UNSPECIFIED CIRRHOSIS OF LIVER Qualifiers: Hepatic cirrhosis type: alcoholic cirrhosis Ascites presence: with ascites Qualified Code(s): K70.31 - Alcoholic cirrhosis of liver with ascites (4) Sepsis Assessment/Plan: -resolved Code(s): A41.9 - SEPSIS, UNSPECIFIED ORGANISM Qualifiers: Sepsis type: sepsis due to unspecified organism Qualified Code(s): A41.9 - Sepsis, unspecified organism (5) Hypokalemia Assessment/Plan: -replaced Code(s): E87.6 - HYPOKALEMIA (6) Hypophosphatemia Assessment/Plan: -replaced Code(s): E83.39 - OTHER DISORDERS OF PHOSPHORUS METABOLISM (7) Hypomagnesemia Assessment/Plan: -replace with IV magnesium Code(s): E83.42 - HYPOMAGNESEMIA
[2016-04-22] MEDS: ZOLPIDEM TARTRATE 5 MG TABLET PO PRN (22:02)
[2016-04-23] MEDS: CEFAZOLIN 2 GM in DEXTROSE 5%-WATER - 50 ML IVPB SCH ×3 (01:56→18:38)
[2016-04-23 08:11] LABS: BASOPHIL 1.3 % (0-2.0); EOSINOPHIL 2.3 % (0-4.5); MCH 34.7 pg (25.7-33.7); MCHC 33.7 g/dl (32.0-35.9); MEAN PLT VOLUME 8.7 fl (7.5-11.1); NEUTROPHILS 65.8 % (42.8-82.8); PLATELET COUNT 233 K/MM3 (134-434); RDW 16.4 % (11.9-15.9); WHITE BLOOD COUNT 7.7 K/mm3 (4.0-10.0)
[2016-04-23] MEDS: guaiFENesin/CODEINE 5 ML UNIT-DOSE CUPS PO PRN ×4 (08:28→21:16)
[2016-04-23] MEDS: TAMSULOSIN HCL 0.4 MG CAP.ER.24H (FP) PO SCH (08:30)
[2016-04-23 08:44] LABS: ALK PHOS 192 U/L (45-117); ANION GAP 7 (8-16); BILIRUBIN,TOTAL 2.1 mg/dL (0.2-1.0); CALCIUM 7.9 mg/dL (8.5-10.1); CO2 29 mmol/L (21-32); CREATININE 0.5 mg/dL (0.7-1.3); GLUCOSE,RANDOM 94 mg/dL (74-106); MAGNESIUM 1.7 mg/dL (1.8-2.4); PHOSPHOROUS 3.1 mg/dL (2.5-4.9); SGOT/AST 103 U/L (15-37); SGPT/ALT 58 U/L (12-78); TOT PROT 6.2 g/dl (6.4-8.2)
--- NOTE | 2016-04-23 10:38 | PN ---
Physical Exam: SUBJECTIVE: Patient seen and examined at bed side this morning. No complaints. Still has dry cough but improving. Feels good. Denies headache, no overnight fever, abdominal pain, nausea or vomiting. OBJECTIVE: Vital Signs Period Temp Pulse Resp BP Sys/Sarmiento Pulse Ox Last 24 Hr 98.6 F-100.1 F 88-109 18-20 113-118/66-78 100 GENERAL: Patient is lying comfortably in bed, awake, alert, and fully oriented x 3, in no acute distress. IV Site: Peripheral Pain assessment; 05/24 HEAD: Normal with no signs of trauma. EYES: PEERLA, icterus +, no pallor EARS, NOSE, THROAT: Ears normal NECK: Supple, no JVD or mass LUNGS: Breath sounds equal, clear to auscultation bilaterally. No wheezes, and no crackles. No accessory muscle use. HEART: Regular rate and rhythm, normal S1 and S2 without murmur, rub or gallop. ABDOMEN: Soft, nontender, not distended, normoactive bowel sounds, no guarding, no rebound, no masses. No hepatomegaly or splenomegaly. MUSCULOSKELETAL: Normal range of motion at all joints. No bony deformities or tenderness. No CVA tenderness. UPPER EXTREMITIES: 2+ pulses, warm, well-perfused. No peripheral edema. LOWER EXTREMITIES: 2+ pulses, warm, well-perfused. No calf tenderness. No peripheral edema. NEUROLOGICAL: Cranial nerves II-XII intact. Normal speech. Normal gait. PSYCHIATRIC: Cooperative. Good eye contact. Appropriate mood and affect. SKIN: [place] + over arms, back, abdomen, right leg +, Warm, dry, normal turgor, no rashes or lesions noted. Laboratory Results - last 24 hr 04/23/16 04/23/16 06:00 06:00 WBC 7.7 RBC 3.20 L Hgb 11.1 L Hct 32.9 L MCV 103.0 H MCHC 33.7 RDW 16.4 H Plt Count 233 MPV 8.7 Neutrophils % 65.8 Lymphocytes % 18.4 Monocytes % 12.2 H Eosinophils % 2.3 Basophils % 1.3 Sodium 140 Potassium 4.4 Chloride 104 Carbon Dioxide 29 Anion Gap 7 L BUN 3 L Creatinine 0.5 L Creat Clearance w eGFR > 60 Random Glucose 94 Calcium 7.9 L Phosphorus 3.1 Magnesium 1.7 L Total Bilirubin 2.1 H AST 103 H ALT 58 Alkaline Phosphatase 192 H Total Protein 6.2 L Albumin 2.0 L Active Medications Generic Name Dose Route Start Last Admin Trade Name Freq PRN Reason Stop Dose Admin Cyclobenzaprine HCl 5 mg 04/21/16 14:30 04/22/16 09:45 Flexeril - PO 5 mg TID PRN Administration MUSCLE SPASMS Fluticasone Propionate 1 spray 04/17/16 16:45 04/22/16 09:20 Flonase - NS 1 spray DAILY LALITHA Administration Guaifenesin/Codeine Phosphate 10 ml 04/21/16 14:30 04/23/16 08:28 Robitussin Ac - PO 10 ml Q4H PRN Administration COUGH Cefazolin Sodium 2 gm/ 50 mls @ 100 mls/hr 04/18/16 18:00 04/23/16 01:56 Dextrose IVPB 100 mls/hr Q8H-IV LALITHA Administration Ibuprofen 400 mg 04/16/16 16:25 04/22/16 15:20 Motrin - PO 400 mg Q6H PRN Administration PAIN Ibuprofen 400 mg 04/21/16 14:29 Caldolor Injection - IVPB Q6H PRN FEVER Magnesium Oxide 400 mg 04/18/16 22:00 04/22/16 22:00 Mag-Ox - PO 400 mg BID LALITHA Administration Oxycodone HCl 5 mg 04/21/16 14:34 Roxicodone - PO Q6H PRN PAIN Pantoprazole Sodium 20 mg 04/18/16 10:00 04/22/16 09:44 Protonix - PO 20 mg DAILY LALITHA Administration Potassium Chloride 20 meq 04/17/16 10:00 04/22/16 09:45 K-Dur - PO 20 meq DAILY LALITHA Administration Potassium Phos/Sodium Phos 1 packet 04/18/16 22:00 04/22/16 22:01 Phos-Nak Packet - PO 1 packet BID LALITHA Administration Sodium Chloride 2 spray 04/20/16 14:10 04/22/16 10:11 [place] - NS 2 spray BID PRN Administration NASAL CONGESTION Tamsulosin HCl 0.4 mg 04/18/16 18:30 04/23/16 08:30 Flomax - PO 0.4 mg DAILY@0830 LALITHA Administration Zolpidem Tartrate 5 mg 04/18/16 23:24 04/22/16 22:02 Ambien - PO 5 mg HS PRN Administration INSOMNIA 04/15/2015 CT abdomen/Pelvis- No evidence of pancreatic masses or acute/chronic pancreatitis. Inflammatory changes about the right colon suspicious for focal colitis. Mild inflammatory stranding about the left kidney, suggest prior pyelonephritis. Findings of consistent with advanced hepatocellular disease including a nodular liver and splenomegaly, free pelvic fluid superior to urinary bladder. 04/16/2016 [facility]G Abdomen: Cholelithiasis. Hepatosplenomegaly. No evidence of hydronephrosis or acute renal abnormalities. 04/16/2016 MRCP of Abdomen : Contracted Gall bladder containing gall stones. Non diagnostic MRCP sequences due to significant motion. No biliary ductal dilatation. Peripancreatic edema extending inferiorly along the retroperitoneal planes associated with periportal and abdirahman hepatis edema suspicious for pancreatitis. No pancreatic ductal dilatation. Fatty liver vs Hepatocellular disease with splenomegaly. 2.3 cm left lower renal ple cyst. s/p gastric banding. ASSESSMENT/PLAN: 45 year old male with significant past medical history of ETOH abuse, multiple admissions, detox/withdrawal, obesity s/p lap band, left shoulder surgery, herniated disc presented to the ED with the chief complaints of High grade fever , chills, rigors, headache x 6 days. Admitted with the diagnosis of Sepsis secondary to pyelonephritis. # Sepsis most likely secondary to Pyelonephritis vs Prostatitis-Gram negative bacteremia- RESOLVING Pancreatitis ruled out since there is no clinical evidence and CT abdomen negative for Pancreatitis. Possible Prostatitis because on [place] exam: tender swollen prostate found by Dr. Hebert. Patient presented with fever Tmax 103.2, HR-92 Presented with - High leukocyte count 10.2, bandemia. Urine showed 2+blood, leukocyte esterase +, Urine WBC [address] abdomen/Pelvis with contrast suggesting of prior pyelonephritis Repeat Blood culture positive for Lactose fermenting Gram negative bacilli. 04/15/2015 Blood culture/Urine culture showed klebsiella pneumoniae. Lactic acidosis resolved. Ceftriaxone changed to Zosyn and now changed to cephazolin 04/18/2016 to treat prostatitis. IV Metronidazole stopped USG abdomen done report mentioned above MRCP report mentioned above Flomax continued CBC daily Monitor for Tmax # Elevated liver enzymes most likely due to cirrhosis H/O Alcohol abuse Chronic elevation of liver enzymes Avoid hepatotoxic drugs GI consult appreciated. As per GI, once patient is stabilized refer the patient to [facility] liver transplant/hepatology department. # Cholelithiasis: Acute cholecystitis less likely. Could be an incidental finding. # Severe headache-resolved # Electrolyte imbalance-Improving Hyponatremia, Hypokalemia- Resolved. occurred most likely due to intake of 10 L of fluids (Dilutional hyponatremia) Repeat CMP Rest as per primary. # ID HIV negative Hepatitis panel negative, positive Hep A Ab. # FEN Not on fluids. Electrolytes-mentioned above Sodium controlled diet. # Prophylaxis For DVT- On SCD's For GI- Pantoprazole Illness, Investigation and Plan of care explained to the patient. He verbalized understanding. Will discuss case with Dr. Varma. Thank you for the consultative opportunity. Visit type - Emergency Visit Emergency Visit: Yes ED Registration Date: 04/16/16 Care time: The patient presented to the Emergency Department on the above date and was hospitalized for further evaluation of their emergent condition. - New Patient This patient is new to me today: No - Critical Care Critical Care patient: No
--- NOTE | 2016-04-23 11:14 | PN ---
Teaching Attending Note Name of Resident: Marilia Reid ATTENDING PHYSICIAN STATEMENT I saw and evaluated the patient. I reviewed the resident's note and discussed the case with the resident. I agree with the resident's findings and plan as documented. SUBJECTIVE: nad still low grade temps OBJECTIVE: Vital Signs Period Temp Pulse Resp BP Sys/Sarmiento Pulse Ox Last 24 Hr 98.6 F-100.1 F 88-109 18-20 113-118/66-78 100 cor-rrr lungs clear abd soft,nt ext no edema CBC, BMP 04/23/16 06:00 04/23/16 06:00 Microbiology 04/21/16 14:50 Nasopharyngeal Swab Respiratory Virus Panel - Preliminary 04/21/16 14:50 Nasopharyngeal Swab Influenza Types A,B Antigen (LIU) - Final 04/21/16 14:50 Nasopharyngeal Swab - Final 04/17/16 21:00 Blood - Peripheral Venous Blood Culture - Final Klebsiella Pneumoniae 04/17/16 21:00 Blood - Peripheral Venous Blood Culture - Final Klebsiella Pneumoniae 04/18/16 03:40 Urine - Urine Clean Catch Urine Culture - Final 04/16/16 01:00 Urine - Urine Clean Catch Urine Culture - Final Klebsiella Pneumoniae 04/15/16 22:20 Blood - Peripheral Venous Blood Culture - Final Klebsiella Pneumoniae 04/15/16 22:20 Nasopharyngeal Swab Respiratory Virus Panel - Preliminary 04/15/16 22:20 Nasopharyngeal Swab Influenza Types A,B Antigen (LIU) - Final 04/15/16 22:20 Nasopharyngeal Swab - Final Laboratory Tests 04/18/16 06:55 C-Reactive Protein 8.6 H ASSESSMENT AND PLAN: kelbsiella bacteremia/uti nephronia/prostatitis check repeat blood cultures esr/crp echo continue ancef repeat ct abd/pelvis r/o abscess d/w Dr Hanley
[2016-04-23] MEDS ORDERED: PT OWN MED DRAWER 7, Y5N ONE (11:27)
[2016-04-23] MEDS: SODIUM CHLORIDE NASAL SPRAY 44 ML BOTTLE NS PRN (11:28)
[2016-04-23] MEDS: FLUTICASONE PROP 0.05% 16 GM NASAL SPRAY NS SCH (11:28)
[2016-04-23] MEDS: POTASSIUM CHLORIDE TABS 20 MEQ TABLET.ER (FP) PO SCH (11:29)
[2016-04-23] MEDS: MAGNESIUM OXIDE 400 MG TABLET (FP) PO SCH ×2 (11:29→22:11)
[2016-04-23] MEDS: PANTOPRAZOLE 20 MG TABLET (FP) PO SCH (11:29)
[2016-04-23] MEDS: NAPH,MB-DB/K PH,MBDB POWDER PACKET PO SCH ×2 (11:29→22:11)
[2016-04-23] MEDS: oxyCODONE HCL 5 MG TABLET PO PRN ×3 (12:17→22:11)
--- NOTE | 2016-04-23 12:17 | PN ---
Progress Note, Physician Chief Complaint: Mr Blount continues to improve, is without complaint today. No cp, sob, n/v. - Current Medication List Current Medications: Active Medications Cyclobenzaprine HCl (Flexeril -) 5 mg PO TID PRN PRN Reason: MUSCLE SPASMS Last Admin: 04/22/16 09:45 Dose: 5 mg Fluticasone Propionate (Flonase -) 1 spray NS DAILY [facility] Last Admin: 04/23/16 11:28 Dose: 1 spray Guaifenesin/Codeine Phosphate (Robitussin Ac -) 10 ml PO Q4H PRN PRN Reason: COUGH Last Admin: 04/23/16 11:29 Dose: 10 ml Cefazolin Sodium 2 gm/ (Dextrose) 50 mls @ 100 mls/hr IVPB Q8H-IV [facility] Last Admin: 04/23/16 11:29 Dose: 100 mls/hr Ibuprofen (Motrin -) 400 mg PO Q6H PRN PRN Reason: PAIN Last Admin: 04/22/16 15:20 Dose: 400 mg Ibuprofen (Caldolor Injection -) 400 mg IVPB Q6H PRN PRN Reason: FEVER Magnesium Oxide (Mag-Ox -) 400 mg PO BID [facility] Last Admin: 04/23/16 11:29 Dose: 400 mg Oxycodone HCl (Roxicodone -) 5 mg PO Q6H PRN PRN Reason: PAIN Pantoprazole Sodium (Protonix -) 20 mg PO DAILY [facility] Last Admin: 04/23/16 11:29 Dose: 20 mg Potassium Chloride (K-Dur -) 20 meq PO DAILY [facility] Last Admin: 04/23/16 11:29 Dose: 20 meq Potassium Phos/Sodium Phos (Phos-Nak Packet -) 1 packet PO BID [facility] Last Admin: 04/23/16 11:29 Dose: 1 packet Sodium Chloride ([place] Nasal [place] -) 2 spray NS BID PRN PRN Reason: NASAL CONGESTION Last Admin: 04/23/16 11:28 Dose: 2 spray Tamsulosin HCl (Flomax -) 0.4 mg PO DAILY@0830 [facility] Last Admin: 04/23/16 08:30 Dose: 0.4 mg Zolpidem Tartrate (Ambien -) 5 mg PO HS PRN PRN Reason: INSOMNIA Last Admin: 04/22/16 22:02 Dose: 5 mg - Objective Vital Signs: Vital Signs Temperature 98.6 F 04/23/16 06:44 Pulse Rate 88 04/23/16 06:44 Respiratory Rate 20 04/23/16 06:44 Blood Pressure 118/78 04/23/16 06:44 O2 Sat by Pulse Oximetry (%) 100 04/22/16 21:00 Constitutional: Yes: No Distress, Calm, Obese Cardiovascular: Yes: Regular Rate and Rhythm. No: Gallop, Murmur, Rub Respiratory: Yes: Regular, CTA Bilaterally. No: Rales, Rhonchi, Wheezes Gastrointestinal: Yes: Normal Bowel Sounds, Soft. No: Distention, Tenderness Extremities: Yes: WNL Edema: No Labs: CBC, BMP 04/23/16 06:00 04/23/16 06:00 INR, PTT INR 1.83 (0.82-1.09) H 04/21/16 06:00 Problem List - Problems (1) Pyelonephritis Code(s): N12 - TUBULO-INTERSTITIAL NEPHRITIS, NOT SPCF ACUTE OR CHRONIC (2) Pancreatitis Code(s): K85.9 - ACUTE PANCREATITIS, UNSPECIFIED * DO NOT USE * Qualifiers: Chronicity: acute Pancreatitis type: biliary Qualified Code(s): K85.1 - Biliary acute pancreatitis (3) Cirrhosis Code(s): K74.60 - UNSPECIFIED CIRRHOSIS OF LIVER Qualifiers: Hepatic cirrhosis type: alcoholic cirrhosis Ascites presence: with ascites Qualified Code(s): K70.31 - Alcoholic cirrhosis of liver with ascites (4) Sepsis Code(s): A41.9 - SEPSIS, UNSPECIFIED ORGANISM Qualifiers: Sepsis type: sepsis due to unspecified organism Qualified Code(s): A41.9 - Sepsis, unspecified organism (5) Hypokalemia Code(s): E87.6 - HYPOKALEMIA (6) Hypophosphatemia Code(s): E83.39 - OTHER DISORDERS OF PHOSPHORUS METABOLISM (7) Hypomagnesemia Code(s): E83.42 - HYPOMAGNESEMIA Assessment/Plan (1) Pyelonephritis/prostatitis Assessment/Plan: -case d/w ID -still with low grade temperatures -will order CT scan with contrast to evaluate for possible fluid collection/ abscess -otherwise much improved -continue cefazolin with possible switch to oral antibiotics soon Code(s): N12 - TUBULO-INTERSTITIAL NEPHRITIS, NOT SPCF ACUTE OR CHRONIC (2) Pancreatitis Assessment/Plan: -seen on MRCP, but patient without signs of pancreatitis -CT scan today Code(s): K85.9 - ACUTE PANCREATITIS, UNSPECIFIED * DO NOT USE * Qualifiers: Chronicity: acute Pancreatitis type: biliary Qualified Code(s): K85.1 - Biliary acute pancreatitis (3) Cirrhosis Assessment/Plan: -outpatient evaluation for liver transplant -patient needs to stop alcohol consumption Code(s): K74.60 - UNSPECIFIED CIRRHOSIS OF LIVER Qualifiers: Hepatic cirrhosis type: alcoholic cirrhosis Ascites presence: with ascites Qualified Code(s): K70.31 - Alcoholic cirrhosis of liver with ascites (4) Sepsis Assessment/Plan: -resolved Code(s): A41.9 - SEPSIS, UNSPECIFIED ORGANISM Qualifiers: Sepsis type: sepsis due to unspecified organism Qualified Code(s): A41.9 - Sepsis, unspecified organism (5) Hypokalemia Assessment/Plan: -replaced Code(s): E87.6 - HYPOKALEMIA (6) Hypophosphatemia Assessment/Plan: -replaced Code(s): E83.39 - OTHER DISORDERS OF PHOSPHORUS METABOLISM (7) Hypomagnesemia Assessment/Plan: -replace with IV magnesium Code(s): E83.42 - HYPOMAGNESEMIA
[2016-04-23] MEDS ORDERED: MAGNESIUM SULF 50% (8.12 MEQ/2 ML-1 GM VIAL) IVPB ONE (14:15)
--- NOTE | 2016-04-23 14:44 | PN ---
GI Progress Note Subjective: Some soft bowel movements No abdominal pain - Objective Vital Signs: Vital Signs Temperature 98.6 F 04/23/16 06:44 Pulse Rate 88 04/23/16 06:44 Respiratory Rate 20 04/23/16 06:44 Blood Pressure 118/78 04/23/16 06:44 O2 Sat by Pulse Oximetry (%) 100 04/22/16 21:00 Constitutional: Calm Eyes: No: Sclera Icterus Cardiovascular: Yes: Regular Rate and Rhythm Respiratory: Yes: CTA Bilaterally Gastrointestinal Inspection: No: Distention ...Auscultate: Yes: Normoactive Bowel Sounds ...Palpate: No: Tenderness Edema: Yes (2+ LE edema) Neurological: Yes: Alert, Oriented Labs: CBC, BMP 04/23/16 06:00 04/23/16 06:00 INR, PTT INR 1.83 (0.82-1.09) H 04/21/16 06:00 Hepatic Panel Total Bilirubin 2.1 mg/dL (0.2-1.0) H 04/23/16 06:00 Direct Bilirubin 2.4 mg/dL (0.0-0.2) H 04/18/16 06:55 AST 103 U/L (15-37) H 04/23/16 06:00 ALT 58 U/L (12-78) 04/23/16 06:00 Alkaline Phosphatase 192 U/L (45-117) H 04/23/16 06:00 Albumin 2.0 g/dl (3.4-5.0) L 04/23/16 06:00 Problem List - Problems (1) Cirrhosis Assessment/Plan: Q 6 month AFP tumor marker / hepatic US Alcohol cessation Code(s): K74.60 - UNSPECIFIED CIRRHOSIS OF LIVER Qualifiers: Hepatic cirrhosis type: alcoholic cirrhosis Ascites presence: with ascites Qualified Code(s): K70.31 - Alcoholic cirrhosis of liver with ascites (2) Urinary tract infection Assessment/Plan: Plan per ID For repeat CT scan Code(s): N39.0 - URINARY TRACT INFECTION, SITE NOT SPECIFIED
[2016-04-23] MEDS: IBUPROFEN 400 MG TABLET (FP) PO PRN ×2 (17:51→23:17)
[2016-04-23 18:34] LABS: URINE APPEARANCE CLEAR; URINE BILIRUBIN 1+ (NEGATIVE); URINE BLOOD NEGATIVE (NEGATIVE); URINE COLOR LT. YELLOW; URINE GLUCOSE (UA) NEGATIVE (NEGATIVE); URINE KETONE NEGATIVE (NEGATIVE); URINE LEUK ESTERASE NEGATIVE (NEGATIVE); URINE NITRITE NEGATIVE (NEGATIVE); URINE PROTEIN NEGATIVE (NEGATIVE); URINE UROBILINOGEN 0.2 E.U/dl E.U./dl (0.2-1.0)
[2016-04-23] MEDS: ZOLPIDEM TARTRATE 5 MG TABLET PO PRN (23:17)
[2016-04-24] MEDS ORDERED: PT OWN MED DRAWER 7, Y5N ONE (01:57)
[2016-04-24] MEDS: CEFAZOLIN 2 GM in DEXTROSE 5%-WATER - 50 ML IVPB SCH ×2 (02:04→09:04)
[2016-04-24 07:37] LABS: BASOPHIL 1.4 % (0-2.0); EOSINOPHIL 3.6 % (0-4.5); MCH 34.5 pg (25.7-33.7); MCHC 33.7 g/dl (32.0-35.9); MEAN CELL VOLUME 102.3 fl (80-96); MEAN PLT VOLUME 8.4 fl (7.5-11.1); NEUTROPHILS 58.6 % (42.8-82.8); PLATELET COUNT 223 K/MM3 (134-434); RDW 16.2 % (11.9-15.9)
[2016-04-24 08:16] LABS: CREATININE 0.5 mg/dL (0.7-1.3); MAGNESIUM 1.7 mg/dL (1.8-2.4); PHOSPHOROUS 3.4 mg/dL (2.5-4.9)
[2016-04-24] MEDS: oxyCODONE HCL 5 MG TABLET PO PRN ×2 (09:02→13:48)
[2016-04-24] MEDS: POTASSIUM CHLORIDE TABS 20 MEQ TABLET.ER (FP) PO SCH (09:02)
[2016-04-24] MEDS: guaiFENesin/CODEINE 5 ML UNIT-DOSE CUPS PO PRN ×2 (09:02→13:48)
[2016-04-24] MEDS: NAPH,MB-DB/K PH,MBDB POWDER PACKET PO SCH (09:03)
[2016-04-24] MEDS: MAGNESIUM OXIDE 400 MG TABLET (FP) PO SCH (09:03)
[2016-04-24] MEDS: PANTOPRAZOLE 20 MG TABLET (FP) PO SCH (09:03)
[2016-04-24] MEDS: TAMSULOSIN HCL 0.4 MG CAP.ER.24H (FP) PO SCH (09:03)
[2016-04-24] MEDS: FLUTICASONE PROP 0.05% 16 GM NASAL SPRAY NS SCH (09:04)
--- NOTE | 2016-04-24 10:50 | PN ---
Physical Exam: SUBJECTIVE: Patient seen and examined at bed side this morning. No complaints. Still has dry cough but improving. Feels good. Denies headache, no overnight fever, abdominal pain, nausea or vomiting. OBJECTIVE: Vital Signs Period Temp Pulse Resp BP Sys/Sarmiento Pulse Ox Last 24 Hr 97.9 F-99.4 F 72-93 16-20 110-120/65-74 100 GENERAL: Patient is lying comfortably in bed, awake, alert, and fully oriented x 3, in no acute distress. IV Site: Peripheral Pain assessment; 05/24 HEAD: Normal with no signs of trauma. EYES: PEERLA, icterus +, no pallor EARS, NOSE, THROAT: Ears normal NECK: Supple, no JVD or mass LUNGS: Breath sounds equal, clear to auscultation bilaterally. No wheezes, and no crackles. No accessory muscle use. HEART: Regular rate and rhythm, normal S1 and S2 without murmur, rub or gallop. ABDOMEN: Soft, nontender, not distended, normoactive bowel sounds, no guarding, no rebound, no masses. No hepatomegaly or splenomegaly. MUSCULOSKELETAL: Normal range of motion at all joints. No bony deformities or tenderness. No CVA tenderness. UPPER EXTREMITIES: 2+ pulses, warm, well-perfused. No peripheral edema. LOWER EXTREMITIES: 2+ pulses, warm, well-perfused. No calf tenderness. No peripheral edema. NEUROLOGICAL: Cranial nerves II-XII intact. Normal speech. Normal gait. PSYCHIATRIC: Cooperative. Good eye contact. Appropriate mood and affect. SKIN: Tattos + over arms, back, abdomen, right leg +, Warm, dry, normal turgor, no rashes or lesions noted. Laboratory Results - last 24 hr 04/23/16 04/24/16 04/24/16 18:10 06:30 06:30 WBC 7.0 RBC 3.06 L Hgb 10.5 L Hct 31.3 L MCV 102.3 H MCHC 33.7 RDW 16.2 H Plt Count 223 MPV 8.4 Neutrophils % 58.6 Lymphocytes % 24.5 D Monocytes % 11.9 H Eosinophils % 3.6 Basophils % 1.4 ESR 48 H Sodium Potassium Chloride Carbon Dioxide Anion Gap BUN Creatinine Random Glucose Calcium Phosphorus Magnesium Urine Color Lt. yellow Urine Appearance Clear Urine pH 7.0 D Ur Specific Rand 1.010 Urine Protein Negative Urine Glucose (UA) Negative Urine Ketones Negative Urine Blood Negative Urine Nitrite Negative Urine Bilirubin 1+ H Urine Urobilinogen 0.2 e.u/dl Ur Leukocyte Esterase Negative 04/24/16 06:30 WBC RBC Hgb Hct MCV MCHC RDW Plt Count MPV Neutrophils % Lymphocytes % Monocytes % Eosinophils % Basophils % ESR Sodium 138 Potassium 4.6 Chloride 101 Carbon Dioxide 31 Anion Gap 6 L BUN 3 L Creatinine 0.5 L Random Glucose 82 Calcium 8.0 L Phosphorus 3.4 Magnesium 1.7 L Urine Color Urine Appearance Urine pH Ur Specific Rand Urine Protein Urine Glucose (UA) Urine Ketones Urine Blood Urine Nitrite Urine Bilirubin Urine Urobilinogen Ur Leukocyte Esterase Active Medications Generic Name Dose Route Start Last Admin Trade Name Freq PRN Reason Stop Dose Admin Cyclobenzaprine HCl 5 mg 04/21/16 14:30 04/22/16 09:45 Flexeril - PO 5 mg TID PRN Administration MUSCLE SPASMS Fluticasone Propionate 1 spray 04/17/16 16:45 04/24/16 09:04 Flonase - NS 1 spray DAILY LALITHA Administration Guaifenesin/Codeine Phosphate 10 ml 04/21/16 14:30 04/24/16 09:02 Robitussin Ac - PO 10 ml Q4H PRN Administration COUGH Cefazolin Sodium 2 gm/ 50 mls @ 100 mls/hr 04/18/16 18:00 04/24/16 09:04 Dextrose IVPB 100 mls/hr Q8H-IV LALITHA Administration Ibuprofen 400 mg 04/16/16 16:25 04/23/16 23:17 Motrin - PO 400 mg Q6H PRN Administration PAIN Ibuprofen 400 mg 04/21/16 14:29 Caldolor Injection - IVPB Q6H PRN FEVER Magnesium Oxide 400 mg 04/18/16 22:00 04/24/16 09:03 Mag-Ox - PO 400 mg BID LAILTHA Administration Oxycodone HCl 5 mg 04/23/16 18:16 04/24/16 09:02 Roxicodone - PO 5 mg Q4H PRN Administration PAIN Pantoprazole Sodium 20 mg 04/18/16 10:00 04/24/16 09:03 Protonix - PO 20 mg DAILY LALITHA Administration Potassium Chloride 20 meq 04/17/16 10:00 04/24/16 09:02 K-Dur - PO 20 meq DAILY LALITHA Administration Potassium Phos/Sodium Phos 1 packet 04/18/16 22:00 04/24/16 09:03 Phos-Nak Packet - PO 1 packet BID LALITHA Administration Sodium Chloride 2 spray 04/20/16 14:10 04/23/16 11:28 [place] Nasal Forman - NS 2 spray BID PRN Administration NASAL CONGESTION Tamsulosin HCl 0.4 mg 04/18/16 18:30 04/24/16 09:03 Flomax - PO 0.4 mg DAILY@0830 LALITHA Administration Zolpidem Tartrate 5 mg 04/18/16 23:24 04/23/16 23:17 Ambien - PO 5 mg HS PRN Administration INSOMNIA 04/15/2015 CT abdomen/Pelvis- No evidence of pancreatic masses or acute/chronic pancreatitis. Inflammatory changes about the right colon suspicious for focal colitis. Mild inflammatory stranding about the left kidney, suggest prior pyelonephritis. Findings of consistent with advanced hepatocellular disease including a nodular liver and splenomegaly, free pelvic fluid superior to urinary bladder. 04/16/2016 USG Abdomen: Cholelithiasis. Hepatosplenomegaly. No evidence of hydronephrosis or acute renal abnormalities. 04/16/2016 MRCP of Abdomen : Contracted Gall bladder containing gall stones. Non diagnostic MRCP sequences due to significant motion. No biliary ductal dilatation. Peripancreatic edema extending inferiorly along the retroperitoneal planes associated with periportal and abdirahman hepatis edema suspicious for pancreatitis. No pancreatic ductal dilatation. Fatty liver vs Hepatocellular disease with splenomegaly. 2.3 cm left lower renal ple cyst. s/p gastric banding. ASSESSMENT/PLAN: 45 year old male with significant past medical history of ETOH abuse, multiple admissions, detox/withdrawal, obesity s/p lap band, left shoulder surgery, herniated disc presented to the ED with the chief complaints of High grade fever , chills, rigors, headache x 6 days. Admitted with the diagnosis of Sepsis secondary to pyelonephritis. # Sepsis most likely secondary to Pyelonephritis vs Prostatitis-Gram negative bacteremia- RESOLVED Pancreatitis ruled out since there is no clinical evidence and CT abdomen negative for Pancreatitis. Prostatitis on OR exam: tender swollen prostate found by Dr. Hebert. Patient presented with fever Tmax 103.2, HR-92 Presented with - High leukocyte count 10.2, bandemia. Urine showed 2+blood, leukocyte esterase +, Urine WBC [address] abdomen/Pelvis with contrast suggesting of prior pyelonephritis Repeat Blood culture positive for Lactose fermenting Gram negative bacilli. 04/15/2015 Blood culture/Urine culture showed klebsiella pneumoniae. Lactic acidosis resolved. Afebrile x 24 hours Ceftriaxone changed to Zosyn and now changed to cephazolin 04/18/2016 to treat prostatitis. IV Metronidazole stopped USG abdomen done report mentioned above MRCP report mentioned above Flomax continued CBC daily Monitor for Tmax # Elevated liver enzymes most likely due to cirrhosis H/O Alcohol abuse Chronic elevation of liver enzymes Avoid hepatotoxic drugs GI consult appreciated. As per GI, once patient is stabilized refer the patient to [facility] liver transplant/hepatology department. # Cholelithiasis: Acute cholecystitis less likely. Could be an incidental finding. # Severe headache-resolved # Electrolyte imbalance-Improving Hyponatremia, Hypokalemia- Resolved. occurred most likely due to intake of 10 L of fluids (Dilutional hyponatremia) Repeat CMP Rest as per primary. # ID HIV negative Hepatitis panel negative, positive Hep A Ab. # FEN Not on fluids. Electrolytes-mentioned above Sodium controlled diet. # Prophylaxis For DVT- On SCD's For GI- Pantoprazole # Disposition: Stable and can be discharged on Levofloxacin 750mg PO Daily x 3 weeks. EKG to be done prior discharge to see the QTC level. Alcohol cessation counseling done. Illness, Investigation and Plan of care explained to the patient. He verbalized understanding. Case discussed with Dr. Varma. Thank you for the consultative opportunity. Visit type - Emergency Visit Emergency Visit: Yes ED Registration Date: 04/16/16 Care time: The patient presented to the Emergency Department on the above date and was hospitalized for further evaluation of their emergent condition. - New Patient This patient is new to me today: No - Critical Care Critical Care patient: No
--- NOTE | 2016-04-24 12:27 | DS ---
Physical Examination Vital Signs: Vital Signs Temperature 98.1 F 04/24/16 09:00 Pulse Rate 85 04/24/16 09:00 Respiratory Rate 16 04/24/16 09:00 Blood Pressure 110/67 04/24/16 09:00 O2 Sat by Pulse Oximetry (%) 100 04/23/16 21:00 Labs: CBC, BMP 04/24/16 06:30 04/24/16 06:30 Discharge Summary Reason For Visit: PYELONEPHRITIS Current Active Problems Acute prostatitis (Acute) Alcoholism (Acute) Cholangitis (Acute) Cirrhosis (Acute) Cough (Acute) Hypokalemia (Acute) Hypomagnesemia (Acute) Hyponatremia (Acute) Hypophosphatemia (Acute) Pancreatitis (Acute) Pyelonephritis (Acute) Sepsis (Acute) Urinary tract infection (Acute) Condition: Good - Instructions Diet, Activity, Other Instructions: resume previous diet. No running while on levaquin. Abstain from all alcohol. Referrals: Neil Rush MD [Primary Care Provider] - Xiomara Varma MD [Staff Physician] - Ahmet Iqbal MD [Staff Physician] - Familia Salazar DO [Staff Physician] - Disposition: HOME - Home Medications Comprehensive Discharge Medication List: Ambulatory Orders Ibuprofen 600 mg PO PRN PRN 04/15/16 Lactobacillus Acidophilus [Acidophilus Lactobacillus] 1 each PO DAILY #30 capsule 04/24/16 Levofloxacin [Levaquin] 750 mg PO DAILY #21 tablet 04/24/16 Magnesium Oxide [Mag-Ox -] 400 mg PO BID #60 tablet 04/24/16 Tamsulosin HCl [Flomax -] 0.4 mg PO DAILY@0830 #30 cap.er.24h 04/24/16
--- NOTE | 2016-04-24 12:40 | PN ---
Teaching Attending Note Name of Resident: Marilia Reid ATTENDING PHYSICIAN STATEMENT I saw and evaluated the patient. I reviewed the resident's note and discussed the case with the resident. I agree with the resident's findings and plan as documented. no fever or chills, ready to go home SUBJECTIVE: Vital Signs Period Temp Pulse Resp BP Sys/Sarmiento Pulse Ox Last 24 Hr 97.9 F-99.4 F 72-93 16-20 110-120/65-74 100 OBJECTIVE: cor-rrr lungs clear abd soft,nt ext no edema CBC, BMP 04/24/16 06:30 04/24/16 06:30 repeat blood cultures negative echo normal ct scan no abscess ASSESSMENT AND PLAN: klebsiella bacteremia prostatitis pyelonephritis/[place] day #7 antibiotics after last positive culture plan po levaquin for another 3 weeks no strenous exercise while on levaquin no etoh f/u with PMD and and GI d/w Dr Hanley
--- NOTE | 2016-04-24 15:22 | EKG ---
Test Reason : Blood Pressure : / mmHG Vent. Rate : 078 BPM Atrial Rate : 078 BPM P-R Int : 160 ms QRS Dur : 096 ms QT Int : 416 ms P-R-T Axes : 054 038 035 degrees QTc Int : 474 ms NORMAL SINUS RHYTHM NORMAL ECG WHEN COMPARED WITH ECG OF 26-DEC-2015 00:11, NO SIGNIFICANT CHANGE WAS FOUND Confirmed by CUATE DYSON MD ([id number]) on 04/24/2016 3:22:38 PM Referred By: Osamn CAMERON Confirmed By:CUATE DYSON MD
[2016-04-24 15:36] VITALS: BP 93/54; PULSE 86; TEMP 98.6
== END 2016-04-24 16:10 | disposition home or self-care (01) | DRG 720 ==
LOC: FER 22:06 → JICU 04-16 02:45 → J8W 04-16 15:51
PROVIDERS: ADMIT Internal Medicine; ATTEND Internal Medicine
DX: A41.59 Other Gram-negative sepsis (principal); I10 Essential (primary) hypertension; G47.39 Other sleep apnea; M54.5 Low back pain; E87.1 Hypo-osmolality and hyponatremia; Z98.84 Bariatric surgery status; E87.2 Acidosis; D68.8 Other specified coagulation defects; K76.6 Portal hypertension; R16.1 Splenomegaly, not elsewhere classified; K80.80 Other cholelithiasis without obstruction; E87.6 Hypokalemia; N39.0 Urinary tract infection, site not specified; K70.31 Alcoholic cirrhosis of liver with ascites; E83.39 Other disorders of phosphorus metabolism; E83.42 Hypomagnesemia; N41.0 Acute prostatitis
CPT/HCPCS: 36415; 71010-TC; 71020-TC; 74177-TC; 74178-TC; 74181-TC; 76700-TC; 80048; 80053; 80076; 80307; 81003; 81015; 82105; 82248; 82436; 83605; 83690; 83735; 83930; 83935; 84100; 85025; 85027; 85610; 85651; 86140; 86704; 86706; 86708; 86803; 87040; 87086; 87186; 87254; 87340; 87389; 87804; 93005; 93010; 93306-TC; 93970-TC; 94010; 99283-25; G0008; J1644; Q2037; Q9967

== ENCOUNTER 2016-05-30 13:40 | Emergency (ER) | payer OTHER ==
[2016-05-30 13:50] VITALS: BP 126/97; PULSE 120; TEMP 98.7; BMI 37.8
--- NOTE | 2016-05-30 15:11 | PDOC ---
History of Present Illness - General History Source: Patient Exam Limitations: Intoxication - History of Present Illness Initial Comments: 05/30/16 15:32 The patient is a 46 year old male with significant past medical history of alcohol abuse who presents to the emergency department for detox. The patient states his last drink was right before he came to [facility]. The patient states he drank 3 beers and a bottle of vodka this morning before arrival. The patient reports some bilateral knee pain as he states he fell 2 days ago. He denies any head trauma or LOC. The patient also reports some associated palpitations. The patient denies any chest pain or SOB. The patient denies any recent illness, fevers, or chills. History is limited due to patients intoxication. <Sera Elizalde - Last Filed: 05/30/16 17:31> <Bashir Corbin - Last Filed: 05/30/16 17:44> - General Chief Complaint: Alcohol intoxication Stated Complaint: INTOX Time Seen by Provider: 05/30/16 14:57 Past History <Sera Elizalde - Last Filed: 05/30/16 17:31> - Past Medical History Anemia: No Asthma: No Cancer: No Cardiac Disorders: No CVA: No COPD: No CHF: No Dementia: No Diabetes: No GI Disorders: No Disorders: No HTN: Yes Hypercholesterolemia: No Kidney Stones: No Liver Disease: No Suicide Attempt (Hx): No Seizures: No Thyroid Disease: No - Surgical History Abdominal Surgery: Yes (LAP BAND 2009) Appendectomy: No Cardiac Surgery: No Cholecystectomy: No GI Surgery: Yes (hernia repair) Lung Surgery: No Neurologic Surgery: No Orthopedic Surgery: Yes (ARTHROSCOPY LEFT SHOULDER) - Reproductive History Testicular Surgery: No - Immunization History Immunization Up to Date: Yes - Psycho/Social/Smoking Cessation Hx Anxiety: No Suicidal Ideation: No Smoking Status: No Smoking History: Never smoked Have you smoked in the past 12 months: Yes Number of Cigarettes Smoked Daily: 0 Cigars Per Day: 0 Information on smoking cessation initiated: No 'Breaking Loose' booklet given: 08/04/15 Hx Alcohol Use: No Drug/Substance Use Hx: No Substance Use Type: Alcohol Hx Substance Use Treatment: Yes <Bashir Corbin - Last Filed: 05/30/16 17:44> - Past Medical History Allergies/Adverse Reactions: Allergies Allergy/AdvReac Type Severity Reaction Status Date / Time No Known Allergies Allergy Verified 05/30/16 13:46 Review of Systems - Review of Systems Able to Perform ROS?: No (Unable to attian. ) <Sera Elizalde - Last Filed: 05/30/16 17:31> *Physical Exam - Vital Signs Last Vital Signs Temp Pulse Resp BP Pulse Ox 98.7 F 120 H 20 126/97 96 05/30/16 13:46 05/30/16 13:46 05/30/16 13:46 05/30/16 13:46 05/30/16 13:46 - Physical Exam Comments: 05/30/16 15:22 GENERAL: Awake, in no acute distress. +Alcohol on breath. HEAD: No signs of trauma EYES: PERRLA, EOMI, sclera anicteric, conjunctiva clear ENT: Auricles normal inspection, hearing grossly normal, nares patent, oropharynx clear without exudates. Moist mucosa NECK: Normal ROM, supple, no lymphadenopathy, JVD, or masses LUNGS: Breath sounds equal, clear to auscultation bilaterally. No wheezes, and no crackles HEART: +Tachycardic and regular rhythm, normal S1 and S2, no murmurs, rubs or gallops ABDOMEN: Soft, nontender, normoactive bowel sounds. No guarding, no rebound. No masses EXTREMITIES: Normal range of motion, no edema. No clubbing or cyanosis. No cords, erythema, or tenderness NEUROLOGICAL: Cranial nerves II through XII grossly intact. Normal speech, normal gait SKIN: Warm, Dry, normal turgor, no rashes or lesions noted. <Sera Elizalde - Last Filed: 05/30/16 17:31> - Vital Signs Last Vital Signs Temp Pulse Resp BP Pulse Ox 98.7 F 120 H 20 126/97 96 05/30/16 13:46 05/30/16 13:46 05/30/16 13:46 05/30/16 13:46 05/30/16 13:46 <Bashir Corbin - Last Filed: 05/30/16 17:44> ED Treatment Course - LABORATORY CBC & Chemistry Diagram: 05/30/16 16:02 05/30/16 16:02 <Sera Elizalde - Last Filed: 05/30/16 17:31> - LABORATORY CBC & Chemistry Diagram: 05/30/16 16:02 02/16/17 16:02 <Bashir Corbin - Last Filed: 05/30/16 17:44> Medical Decision Making - Medical Decision Making 05/30/16 16:15 46 yo M presents intoxicated for detox. 05/30/16 17:[address] Mi at [facility]. Patient got the OK to be admitted to detox. <Sera Elizalde - Last Filed: 05/30/16 17:31> *DC/Admit/Observation/Transfer - Attestations Scribe Attestion: 05/30/16 15:24 Documentation prepared by Sera Elizalde, acting as vice president medical affairs for Bashir Corbin DO. <Sera Elizalde - Last Filed: 05/30/16 17:31> - Discharge Dispostion Admit: No - Attestations Physician Attestion: 05/30/16 15:11 I, Dr. Bashir Corbin, attest that this document has been prepared under my direction and personally reviewed by me in its entirety. I further attest, that it accurately reflects all work, treatment, procedures and medical decision -making performed by me. <Bashir Corbin - Last Filed: 05/30/16 17:44> Diagnosis at time of Disposition: Alcohol withdrawal Qualifiers: Complication of substance-induced condition: uncomplicated Qualified Code(s): F10.230 - Alcohol dependence with withdrawal, uncomplicated - Discharge Dispostion Disposition: I.P. ALCOHOL/SUBS ABUSE REHAB Condition at time of disposition: Good - Patient Instructions Additional Instructions: Tom- Go to [facility] - Security will take you there. Best- Dr. Bashir Corbin
[2016-05-30] MEDS ORDERED: LORazepam 0.5 MG TABLET ONE ×2 (15:45→17:52)
[2016-05-30] MEDS ORDERED: LORazepam 1 MG TABLET PO ONE ×2 (15:49→17:35)
[2016-05-30 16:31] LABS: BASOPHIL 1.1 % (0-2.0); EOSINOPHIL 2.9 % (0-4.5); MCH 33.4 pg (25.7-33.7); MEAN CELL VOLUME 98.2 fl (80-96); MEAN PLT VOLUME 7.4 fl (7.5-11.1); NEUTROPHILS 40.9 % (42.8-82.8); PLATELET COUNT 183 K/MM3 (134-434); WHITE BLOOD COUNT 6.6 K/mm3 (4.0-10.0)
[2016-05-30 16:56] LABS: ALBUMIN 3.1 g/dl (3.4-5.0); ALK PHOS 212 U/L (45-117); ANION GAP 9 (8-16); CALCIUM 7.8 mg/dL (8.5-10.1); CO2 32 mmol/L (21-32); CREATININE 0.7 mg/dL (0.7-1.3); GLUCOSE,RANDOM 122 mg/dL (74-106); SGOT/AST 89 U/L (15-37); TOT PROT 8.3 g/dl (6.4-8.2)
[2016-05-30 17:22] LABS: SGPT/ALT 39 U/L (12-78)
== END 2016-05-30 18:31 | disposition other institution (70) ==
LOC: JER 13:40
DX: F10.230 Alcohol dependence with withdrawal, uncomplicated (principal); M25.562 Pain in left knee; M25.561 Pain in right knee; W19.XXXA Unspecified fall, initial encounter; Y93.9 Activity, unspecified; Y92.89 Other specified places as the place of occurrence of the external cause; Z98.84 Bariatric surgery status
CPT/HCPCS: 36415; 80053; 80307; 85025; 99284-25

== ENCOUNTER 2016-05-30 19:41 | Inpatient (IN) | payer OTHER ==
[2016-05-30 19:54] VITALS: BMI 33.3
--- NOTE | 2016-05-30 20:04 | HP ---
CIWA Score - CIWA Score Nausea/Vomitin-No Nausea/No Vomiting Muscle Tremors: 4-Moderate,w/Arms Extend Anxiety: 4-Mod. Anxious/Guarded Agitation: 4-Moderately Restless Paroxysmal Sweats: 1-Minimal Palms Moist Orientation: 3-Disoriented Date>2 days Tacttile Disturbances: 0-None Auditory Disturbances: 0-None Visual Disturbances: 0-None Headache: 2-Mild (priyanka 0.193) CIWA-Ar Total Score: 18 Admission ROS S - HPI Chief Complaint: withdrawal sx Allergies/Adverse Reactions: Allergies Allergy/AdvReac Type Severity Reaction Status Date / Time No Known Allergies Allergy Verified 05/30/16 13:46 History of Present Illness: 46 years old male long history of alcohol dependence, has fatty liver and lower extremities neuropathy and bipolar ii is admitted to detox Exam Limitations: No Limitations - Ebola screening Have you traveled outside of the country in the last 21 days: No Have you had contact with anyone from an Ebola affected area: No Have you been sick,other than usual withdrawal symptoms: No Do you have a fever: No - Review of Systems Constitutional: Chills, Changes in sleep, Weight Stable EENT: reports: No Symptoms Reported Respiratory: reports: No Symptoms reported Cardiac: reports: Palpitations GI: reports: Nausea, Poor Fluid Intake : reports: No Symptoms Reported Musculoskeletal: reports: Back Pain Integumentary: reports: No Symptoms Reported Neuro: reports: Seizure (alcohol withdrawal related seizure 2016), Tremors Endocrine: reports: No Symptoms Reported Hematology: reports: No Symptoms Reported Psychiatric: reports: Judgement Intact, Anxious, Depressed Other Systems: Reviewed and Negative Patient History - Patient Medical History Hx Anemia: No Hx Asthma: No Hx Chronic Obstructive Pulmonary Disease (COPD): No Hx Cancer: No Hx Cardiac Disorders: No Hx Congestive Heart Failure: No Hx Hypertension: Yes Hx Hypercholesterolemia: No Hx Pacemaker: No HX Cerebrovascular Accident: No Hx Seizures: No Hx Dementia: No Hx Diabetes: No Hx Gastrointestinal Disorders: No Hx Liver Disease: Yes (fatty liver) Hx Genitourinary Disorders: No Hx Sexually Transmitted Disorders: No Hx Renal Disease (ESRD): No Hx Thyroid Disease: No (tsh pending/tachycardia x months) Hx Human Immunodeficiency Virus (HIV): No (last 09/26 negative) Hx Hepatitis C: No Hx Depression: No Hx Suicide Attempt: No Hx Bipolar Disorder: Yes Hx Schizophrenia: No - Patient Surgical History Past Surgical History: Yes Hx Neurologic Surgery: No Hx Cataract Extraction: No Hx Cardiac Surgery: No Hx Lung Surgery: No Hx Breast Surgery: No Hx Breast Biopsy: No Hx Abdominal Surgery: Yes (LAP BAND 2009/umbilical hernia repaired 2013) Hx Appendectomy: No Hx Cholecystectomy: No Hx Genitourinary Surgery: No Hx Orthopedic Surgery: Yes (ARTHROSCOPY LEFT SHOULDER 2011) Anesthesia Reaction: No - PPD History Previous Implant?: Yes Documented Results: Negative w/proof Implanted On Prior [facility] Admission?: Yes Date: 05/27/15 Results: 0mm PPD to be Administered?: Yes - Smoking Cessation Smoking history: Never smoked Have you smoked in the past 12 months: Yes Aproximately how many cigarettes per day: 0 Cigars Per Day: 0 Hx Chewing Tobacco Use: No Initiated information on smoking cessation: No - Substance & Tx. History Hx Alcohol Use: Yes Hx Substance Use: No Substance Use Type: Alcohol Hx Substance Use Treatment: Yes - Substances Abused Alcohol Route: Oral Frequency: Daily Amount used: liquor- 1 litre, beer- 2 six pack Age of first use: 24 Date of Last Use: 05/30/16 Family Disease History - Family Disease History Family Disease History: Other: Father (Alive: 65 alcoholic), Mother (Alive: 62: healthy), Brother (Alive: Healthy), Sister (Alive: Healthy), Son (Healthy), Daughter (Healthy) Admission Physical Exam S - Vital Signs Vital Signs: Vital Signs - 24 hr 05/30/16 19:51 Temperature 99.2 F Pulse Rate 130 H Respiratory 20 Rate Blood Pressure 123/81 - Physical General Appearance: Yes: Appropriately Dressed, Moderate Distress, Alcohol on Breath, Obese HEENTM: Yes: Hearing grossly Normal, Normal ENT Inspection, Normocephalic, Normal Voice Respiratory: Yes: Chest Non-Tender, Lungs Clear, Normal Breath Sounds, No Respiratory Distress, No Accessory Muscle Use Neck: Yes: Supple, Trachea in good position Breast: Yes: Breasts Symetrical Cardiology: Yes: Regular Rhythm, S1, S2, Tachycardia Abdominal: Yes: Non Tender, Soft Genitourinary: Yes: Within Normal Limits Back: Yes: Normal Inspection Musculoskeletal: Yes: full range of Motion, Gait Steady, Back pain Extremities: Yes: Normal Range of Motion, Non-Tender, Tremors Neurological: Yes: Alert, Motor Strength 5/5, Normal Response, Depressed Affect Integumentary: Yes: Warm, Clammy Lymphatic: Yes: Within Normal Limits - Diagnostic (1) Alcohol dependence with uncomplicated withdrawal Current Visit: Yes Status: Acute (2) Fatty liver Current Visit: Yes Status: Chronic (3) Neuropathy Current Visit: Yes Status: Acute Comment: isabella torres (4) Hypertension Current Visit: Yes Status: Acute Qualifiers: Hypertension type: essential hypertension Qualified Code(s): I10 - Essential (primary) hypertension (5) LAP-BAND surgery status Current Visit: Yes Status: Resolved Comment: 2010 (6) Tachycardia Current Visit: Yes Status: Chronic Comment: rule out hyperthyroid Cleared for Admission [facility] - Detox or Rehab [facility] Level of Care: Medically Managed Detox Regimen/Protocol: Librium [facility] Breath Alcohol Content Breath Alcohol Content: 0.193 Urine Drug Screen - Results Drug Screen Negative: No Urine Drug Screen Results: BZO-Benzodiazepines
[2016-05-30] MEDS ORDERED: MENTHOL/PHENOL 1 EACH UD MM PRN (20:12)
[2016-05-30] MEDS ORDERED: P-EPHED 60MG/TRIPROLIDI 2.5MG TABLET PO PRN (20:12)
[2016-05-30] MEDS ORDERED: MAGNESIUM HYDROX 2400MG/30ML ORAL SUSPENSION 30 ML CUP PO PRN (20:12)
[2016-05-30] MEDS ORDERED: ACETAMINOPHEN 325 MG TABLET (FP) PO PRN (20:12)
[2016-05-30] MEDS ORDERED: MAGNESIUM CITRATE 300 ML BOTTLE PO PRN (20:12)
[2016-05-30] MEDS ORDERED: guaiFENesin/D-METHORPHAN HB 10 ML UNIT-DOSE CUPS PO PRN (20:12)
[2016-05-30] MEDS ORDERED: MAG HYDROX/AL HYDROX/SIMETH 30 ML UNIT-DOSE CUP PO PRN (20:12)
[2016-05-30] MEDS ORDERED: LOPERAMIDE HCL 2 MG CAPSULE PO PRN (20:12)
[2016-05-30] MEDS ORDERED: cloNIDine HCL 0.1 MG TABLET PO PRN (20:27)
[2016-05-30] MEDS: chlordiazePOXIDE HCL 25 MG CAPSULE PO PRN (20:55)
[2016-05-30] MEDS: IBUPROFEN 400 MG TABLET (FP) PO PRN (22:01)
[2016-05-30] MEDS: chlordiazePOXIDE HCL 25 MG CAPSULE PO SCH (22:02)
[2016-05-30] MEDS: GABAPENTIN 300 MG CAPSULE (FP) PO SCH (22:02)
[2016-05-30] MEDS: diphenhydrAMINE HCL 50 MG CAPSULE PO PRN (22:03)
[2016-05-30] MEDS: THIAMINE HCL 100 MG TABLET (FP) PO SCH (22:04)
[2016-05-30 23:37] LABS: URINE APPEARANCE CLEAR; URINE BILIRUBIN NEGATIVE (NEGATIVE); URINE BLOOD NEGATIVE (NEGATIVE); URINE COLOR YELLOW; URINE GLUCOSE (UA) NEGATIVE (NEGATIVE); URINE KETONE NEGATIVE (NEGATIVE); URINE LEUK ESTERASE NEGATIVE (NEGATIVE); URINE NITRITE NEGATIVE (NEGATIVE); URINE PROTEIN NEGATIVE (NEGATIVE); URINE UROBILINOGEN NEGATIVE E.U./dl (0.2-1.0)
[2016-05-31] MEDS: chlordiazePOXIDE HCL 25 MG CAPSULE PO SCH ×4 (05:46→22:37)
[2016-05-31] MEDS: GABAPENTIN 300 MG CAPSULE (FP) PO SCH ×3 (05:58→22:37)
[2016-05-31] MEDS: hydrOXYzine PAMOATE 50 MG CAPSULE (FP) PO PRN ×2 (05:58→22:38)
[2016-05-31 10:28] LABS: ALBUMIN 2.4 g/dl (3.4-5.0); ALK PHOS 180 U/L (45-117); ANION GAP 11 (8-16); BILIRUBIN,TOTAL 1.8 mg/dL (0.2-1.0); CALCIUM 7.5 mg/dL (8.5-10.1); CO2 30 mmol/L (21-32); CREATININE 0.5 mg/dL (0.7-1.3); GLUCOSE,RANDOM 105 mg/dL (74-106); SGOT/AST 68 U/L (15-37); SGPT/ALT 29 U/L (12-78); THYROID STIMULATING HORMONE 1.29 uIU/ml (0.358-3.74); TOT PROT 6.5 g/dl (6.4-8.2)
[2016-05-31] MEDS: PRENATAL VITAMINS W/ FOLIC ACID TABLET (FP) PO SCH (10:37)
[2016-05-31] MEDS: CYCLOBENZAPRINE HCL 10 MG TABLET (FP) PO PRN (10:38)
--- NOTE | 2016-05-31 11:12 | EKG ---
Test Reason : Blood Pressure : / mmHG Vent. Rate : 118 BPM Atrial Rate : 118 BPM P-R Int : 160 ms QRS Dur : 090 ms QT Int : 346 ms P-R-T Axes : 095 038 064 degrees QTc Int : 484 ms SINUS TACHYCARDIA NONSPECIFIC ST AND T WAVE ABNORMALITY NON-SPECIFIC INTRA-VENTRICULAR CONDUCTION DELAY ABNORMAL ECG Confirmed by SUZIE RECIO MD ([id number]) on 05/31/2016 11:11:50 AM Referred By: Confirmed By:SUZIE RECIO MD
--- NOTE | 2016-05-31 11:28 | CONSULT ---
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 Substance Abuse History: - Smoking Cessation. Smoking history: Never smoked. Have you smoked in the past 12 months: Yes. Aproximately how many cigarettes per day: 0. Cigars Per Day: 0. Hx Chewing Tobacco Use: No. Initiated information on smoking cessation: No. - Substance & Tx. History. Hx Alcohol Use: Yes. Hx Substance Use: No. Substance Use Type: Alcohol. Hx Substance Use Treatment: Yes. - Substances Abused. Alcohol. Route: Oral. Frequency : Daily. Amount used: liquor- 1 litre, beer- 2 six pack. Age of first use: 24. Date of Last Use: 05/30/16. Confirmed by the patient in my session. Medical History: Hypertension,prostatitis,cirrhosis of liver, recent history of pylonephritis and low back pain.Noted history of arthroscopy on left shoulder ( 2009),exploratory laparotomy (2011) and umbilical herniorraphy (2013). Psychiatric History: Patient denies history of pychiatric hospitalizations.Mr Blount reports a brief CPEP visit at [facility] in 2016 ( released after 24 hours of observation,as per self-report).No history of suicide attempts. Physical/Sexual Abuse/Trauma History: Patient denies. Additional Comment: Urine Drug Screen Results: BZO-Benzodiazepines.Noted. Mental Status Exam - Mental Status Exam Alert and Oriented to: Time, Place, Person Cognitive Function: Good Patient Appearance: Well Groomed Mood: Hopeful, Euthymic Affect: Appropriate, Normal Range Patient Behavior: Fatigued, Appropriate, Cooperative Speech Pattern: Clear Voice Loudness: Normal Thought Process: Intact, Goal Oriented Thought Disorder: Not Present Hallucinations: Denies Suicidal Ideation: Denies Homicidal Ideation: Denies Insight/Judgement: Poor Sleep: Well Appetite: Good Muscle strength/Tone: Normal Gait/Station: Normal Psychiatric Findings - Problem List ([place] 1, 2,3) (1) Alcohol dependence with uncomplicated withdrawal Current Visit: Yes Status: Acute (2) Hypertension Current Visit: Yes Status: Acute Qualifiers: Hypertension type: essential hypertension Qualified Code(s): I10 - Essential (primary) hypertension (3) Neuropathy Current Visit: Yes Status: Acute Comment: neurontin cane (4) Cirrhosis Current Visit: Yes Status: Chronic Qualifiers: Hepatic cirrhosis type: alcoholic cirrhosis Ascites presence: with ascites Qualified Code(s): K70.31 - Alcoholic cirrhosis of liver with ascites (5) Pyelonephritis Current Visit: No Status: Chronic Comment: History. (6) low back pain herniated disc Current Visit: Yes Status: Chronic - Initial Treatment Plan Initial Treatment Plan: Psychoeducation.Detoxification.Observation.
--- NOTE | 2016-05-31 11:38 | PN ---
[facility] CIWA - CIWA Score Nausea/Vomitin-No Nausea/No Vomiting Muscle Tremors: 4-Moderate,w/Arms Extend Anxiety: 4-Mod. Anxious/Guarded Agitation: 4-Moderately Restless Paroxysmal Sweats: 1-Minimal Palms Moist Orientation: 0-Oriented Tacttile Disturbances: 3-Moderate Itch/Numb/Burn Auditory Disturbances: 0-None Visual Disturbances: 0-None Headache: 0-None Present CIWA-Ar Total Score: 16 BHS Progress Note (SOAP) Subjective: ANXIETY,SWEATS,IRRITABILITY,BODY ACHES. Objective: 05/31/16 11:37 Vital Signs Temperature 97.5 F L 05/31/16 09:59 Pulse Rate 96 H 05/31/16 09:59 Respiratory Rate 20 05/31/16 09:59 Blood Pressure 131/90 05/31/16 09:59 O2 Sat by Pulse Oximetry (%) Laboratory Last Values Urine Color Yellow 05/30/16 23:00 Urine Appearance Clear 05/30/16 23:00 Urine pH 6.0 (5.0-8.0) 05/30/16 23:00 Ur Specific [place] 1.005 (1.001-1.035) 05/30/16 23:00 Urine Protein Negative (NEGATIVE) 05/30/16 23:00 Urine Glucose (UA) Negative (NEGATIVE) 05/30/16 23:00 Urine Ketones Negative (NEGATIVE) 05/30/16 23:00 Urine Blood Negative (NEGATIVE) 05/30/16 23:00 Urine Nitrite Negative (NEGATIVE) 05/30/16 23:00 Urine Bilirubin Negative (NEGATIVE) 05/30/16 23:00 Urine Urobilinogen Negative E.U./dl (0.2-1.0) 05/30/16 23:00 Ur Leukocyte Esterase Negative (NEGATIVE) 05/30/16 23:00 0OTHER LABS RESULT PENDING Assessment: 05/31/16 11:37 WITHDRAWAL SX Plan: CONTINUE DETOX
[2016-05-31] MEDS: chlordiazePOXIDE HCL 25 MG CAPSULE PO PRN (13:10)
[2016-05-31 15:32] LABS: MCH 33.6 pg (25.7-33.7); MCHC 33.6 g/dl (32.0-35.9); MEAN CELL VOLUME 100.1 fl (80-96); MEAN PLT VOLUME 7.9 fl (7.5-11.1); PLATELET COUNT 107 K/MM3 (134-434); WHITE BLOOD COUNT 5.1 K/mm3 (4.0-10.0)
[2016-05-31] MEDS: THIAMINE HCL 100 MG TABLET (FP) PO SCH (22:37)
[2016-06-01] MEDS: GABAPENTIN 300 MG CAPSULE (FP) PO SCH ×3 (05:36→22:41)
[2016-06-01] MEDS: chlordiazePOXIDE HCL 25 MG CAPSULE PO SCH ×3 (05:36→17:40)
[2016-06-01] MEDS: PRENATAL VITAMINS W/ FOLIC ACID TABLET (FP) PO SCH (10:27)
[2016-06-01] MEDS: hydrOXYzine PAMOATE 50 MG CAPSULE (FP) PO PRN (13:13)
[2016-06-01] MEDS: amLODIPine BESYLATE 5 MG TABLET (FP) PO SCH (13:13)
--- NOTE | 2016-06-01 13:23 | EKG ---
Test Reason : Blood Pressure : / mmHG Vent. Rate : 082 BPM Atrial Rate : 082 BPM P-R Int : 152 ms QRS Dur : 092 ms QT Int : 418 ms P-R-T Axes : 025 041 028 degrees QTc Int : 488 ms NORMAL SINUS RHYTHM PROLONGED QT ABNORMAL ECG WHEN COMPARED WITH ECG OF 30-MAY-2016 21:36, VENT. RATE HAS DECREASED Confirmed by ALONZO TURPIN MD ([id number]) on 06/01/2016 1:22:42 PM Referred By: Confirmed By:ALONZO TURPIN MD
[2016-06-01] MEDS: IBUPROFEN 400 MG TABLET (FP) PO PRN (14:00)
[2016-06-01] MEDS ORDERED: POTASSIUM CHLORIDE TABS 20 MEQ TABLET.ER (FP) PO ONE (16:25)
--- NOTE | 2016-06-01 16:25 | PN ---
[facility] CIWA - CIWA Score Nausea/Vomitin-Mild Nausea/No Vomiting Muscle Tremors: 3 Anxiety: 3 Agitation: 2 Paroxysmal Sweats: 3 Orientation: 0-Oriented Tacttile Disturbances: 2-Mild Itch/Numbness/Burn Auditory Disturbances: 0-None Visual Disturbances: 1-Very Mild Sensitivity Headache: 0-None Present CIWA-Ar Total Score: 15 BHS Progress Note (SOAP) Subjective: Tremors, Diarrhea, Sweating. Pt. reports Chest Pain since late last night. Pt. reports that chest pain is continuous, sharp. Pain is present ONLY on Right side of chest, localized and lateral to sternum, Pain radiates to upper back area (ONLY Right side), but denies any radiation of pain down arms. Pt. denies nausea / vomiting and dizziness. Pt. reports history of HTN, but denies any other Cardiac history. Objective: PT. A & O X 3. PT ABLE TO AMBULATE ON UNIT WITHOUT DIFFICULTY. LUNG SOUNDS CLEAR BILATERALLY, S1,S2 PRESENT. 06/01/16 16:23 Vital Signs Temperature 97.7 F 06/01/16 14:57 Pulse Rate 104 H 06/01/16 14:57 Respiratory Rate 19 06/01/16 14:57 Blood Pressure 136/97 06/01/16 14:57 O2 Sat by Pulse Oximetry (%) Laboratory Last Values WBC 5.1 K/mm3 (4.0-10.0) 05/31/16 07:00 RBC 3.68 M/mm3 (4.00-5.60) L 05/31/16 07:00 Hgb 12.4 GM/dL (11.7-16.9) D 05/31/16 07:00 Hct 36.8 % (35.4-49) 05/31/16 07:00 MCV 100.1 fl (80-96) H 05/31/16 07:00 MCHC 33.6 g/dl (32.0-35.9) 05/31/16 07:00 RDW 15.0 % (11.9-15.9) 05/31/16 07:00 Plt Count 107 K/MM3 (134-434) L D 05/31/16 07:00 MPV 7.9 fl (7.5-11.1) 05/31/16 07:00 Sodium 141 mmol/L (136-145) 05/31/16 07:00 Potassium 3.2 mmol/L (3.5-5.1) L 05/31/16 07:00 Chloride 100 mmol/L (98-107) 05/31/16 07:00 Carbon Dioxide 30 mmol/L (21-32) 05/31/16 07:00 Anion Gap 11 (8-16) 05/31/16 07:00 BUN 7 mg/dL (7-18) D 05/31/16 07:00 Creatinine 0.5 mg/dL (0.7-1.3) L D 05/31/16 07:00 Creat Clearance w eGFR > 60 (>60) 05/31/16 07:00 Random Glucose 105 mg/dL (74-106) 05/31/16 07:00 Calcium 7.5 mg/dL (8.5-10.1) L 05/31/16 07:00 Total Bilirubin 1.8 mg/dL (0.2-1.0) H 05/31/16 07:00 AST 68 U/L (15-37) H D 05/31/16 07:00 ALT 29 U/L (12-78) D 05/31/16 07:00 Alkaline Phosphatase 180 U/L (45-117) H 05/31/16 07:00 Total Protein 6.5 g/dl (6.4-8.2) D 05/31/16 07:00 Albumin 2.4 g/dl (3.4-5.0) L D 05/31/16 07:00 TSH 1.29 uIU/ml (0.358-3.74) 05/31/16 07:00 Urine Color Yellow 05/30/16 23:00 Urine Appearance Clear 05/30/16 23:00 Urine pH 6.0 (5.0-8.0) 05/30/16 23:00 Ur Specific [place] 1.005 (1.001-1.035) 05/30/16 23:00 Urine Protein Negative (NEGATIVE) 05/30/16 23:00 Urine Glucose (UA) Negative (NEGATIVE) 05/30/16 23:00 Urine Ketones Negative (NEGATIVE) 05/30/16 23:00 Urine Blood Negative (NEGATIVE) 05/30/16 23:00 Urine Nitrite Negative (NEGATIVE) 05/30/16 23:00 Urine Bilirubin Negative (NEGATIVE) 05/30/16 23:00 Urine Urobilinogen Negative E.U./dl (0.2-1.0) 05/30/16 23:00 Ur Leukocyte Esterase Negative (NEGATIVE) 05/30/16 23:00 RPR Titer Nonreactive (NONREACTIVE) 05/31/16 07:00 LABS NOTED. ECG ORDERED STAT. ECG REPORTS FROM TODAY AND FROM ECG DONE ON 05/30/2016 NOTED AND COMPARED. MILD TENDERNESS NOTED UPON PALPATION OF AFFECTED AREA. 06/01/16 16:28 06/01/16 16:31 Assessment: 06/01/16 16:25 WITHDRAWAL SYMPTOMS. Plan: CONTINUE DETOX. AMLODIPINE, 5 MG NOW AND THEN DAILY AFTER ORDERED. IBUPROFEN 400 MG PRN FOR PAIN. K-DUR, 40 MEQ NOW AND THEN 20 MEQ BID AFTER FOR LOW K LEVEL. CONTINUE TO MONITOR PT.'S OVERALL CONDITION AND BP. DR. LAURA MD CONSULTED FOR THIS MATTER.
[2016-06-01] MEDS: THIAMINE HCL 100 MG TABLET (FP) PO SCH (22:41)
[2016-06-01] MEDS: POTASSIUM CHLORIDE TABS 20 MEQ TABLET.ER (FP) PO SCH (22:41)
[2016-06-01] MEDS: chlordiazePOXIDE 5 MG CAPSULE PO SCH (22:42)
[2016-06-01] MEDS: CYCLOBENZAPRINE HCL 10 MG TABLET (FP) PO PRN (22:44)
[2016-06-01] MEDS: diphenhydrAMINE HCL 50 MG CAPSULE PO PRN (22:45)
[2016-06-02] MEDS: GABAPENTIN 300 MG CAPSULE (FP) PO SCH ×3 (05:10→22:09)
[2016-06-02] MEDS: chlordiazePOXIDE 5 MG CAPSULE PO SCH ×3 (05:10→17:23)
[2016-06-02] MEDS: PRENATAL VITAMINS W/ FOLIC ACID TABLET (FP) PO SCH (10:54)
[2016-06-02] MEDS: POTASSIUM CHLORIDE TABS 20 MEQ TABLET.ER (FP) PO SCH ×2 (10:54→22:09)
[2016-06-02] MEDS: amLODIPine BESYLATE 5 MG TABLET (FP) PO SCH (10:54)
--- NOTE | 2016-06-02 13:40 | PN ---
[facility] Progress Note (SOAP) Subjective: Sweating,interrupted sleep,restless Objective: 06/02/16 13:39 Vital Signs - 8 hr 06/02/16 06/02/16 06:33 11:53 Temperature 96.6 F L 97.8 F Pulse Rate 85 105 H Respiratory 18 20 Rate Blood Pressure 128/88 128/90 Laboratory Last Values WBC 5.1 K/mm3 (4.0-10.0) 05/31/16 07:00 RBC 3.68 M/mm3 (4.00-5.60) L 05/31/16 07:00 Hgb 12.4 GM/dL (11.7-16.9) D 05/31/16 07:00 Hct 36.8 % (35.4-49) 05/31/16 07:00 MCV 100.1 fl (80-96) H 05/31/16 07:00 MCHC 33.6 g/dl (32.0-35.9) 05/31/16 07:00 RDW 15.0 % (11.9-15.9) 05/31/16 07:00 Plt Count 107 K/MM3 (134-434) L D 05/31/16 07:00 MPV 7.9 fl (7.5-11.1) 05/31/16 07:00 Sodium 141 mmol/L (136-145) 05/31/16 07:00 Potassium 3.2 mmol/L (3.5-5.1) L 05/31/16 07:00 Chloride 100 mmol/L (98-107) 05/31/16 07:00 Carbon Dioxide 30 mmol/L (21-32) 05/31/16 07:00 Anion Gap 11 (8-16) 05/31/16 07:00 BUN 7 mg/dL (7-18) D 05/31/16 07:00 Creatinine 0.5 mg/dL (0.7-1.3) L D 05/31/16 07:00 Creat Clearance w eGFR > 60 (>60) 05/31/16 07:00 Random Glucose 105 mg/dL (74-106) 05/31/16 07:00 Calcium 7.5 mg/dL (8.5-10.1) L 05/31/16 07:00 Total Bilirubin 1.8 mg/dL (0.2-1.0) H 05/31/16 07:00 AST 68 U/L (15-37) H D 05/31/16 07:00 ALT 29 U/L (12-78) D 05/31/16 07:00 Alkaline Phosphatase 180 U/L (45-117) H 05/31/16 07:00 Total Protein 6.5 g/dl (6.4-8.2) D 05/31/16 07:00 Albumin 2.4 g/dl (3.4-5.0) L D 05/31/16 07:00 TSH 1.29 uIU/ml (0.358-3.74) 05/31/16 07:00 Urine Color Yellow 05/30/16 23:00 Urine Appearance Clear 05/30/16 23:00 Urine pH 6.0 (5.0-8.0) 05/30/16 23:00 Ur Specific [place] 1.005 (1.001-1.035) 05/30/16 23:00 Urine Protein Negative (NEGATIVE) 05/30/16 23:00 Urine Glucose (UA) Negative (NEGATIVE) 05/30/16 23:00 Urine Ketones Negative (NEGATIVE) 05/30/16 23:00 Urine Blood Negative (NEGATIVE) 05/30/16 23:00 Urine Nitrite Negative (NEGATIVE) 05/30/16 23:00 Urine Bilirubin Negative (NEGATIVE) 05/30/16 23:00 Urine Urobilinogen Negative E.U./dl (0.2-1.0) 05/30/16 23:00 Ur Leukocyte Esterase Negative (NEGATIVE) 05/30/16 23:00 RPR Titer Nonreactive (NONREACTIVE) 05/31/16 07:00 labs noted,on k-dur Assessment: 06/02/16 13:39 Withdrawal sx. Plan: Continue detox
[2016-06-02] MEDS: IBUPROFEN 400 MG TABLET (FP) PO PRN (15:20)
[2016-06-02] MEDS: hydrOXYzine PAMOATE 50 MG CAPSULE (FP) PO PRN (15:20)
[2016-06-02] MEDS: THIAMINE HCL 100 MG TABLET (FP) PO SCH (22:08)
[2016-06-02] MEDS: diphenhydrAMINE HCL 50 MG CAPSULE PO PRN (22:08)
[2016-06-02] MEDS: chlordiazePOXIDE HCL 10 MG CAPSULE PO SCH (22:09)
[2016-06-02] MEDS: CYCLOBENZAPRINE HCL 10 MG TABLET (FP) PO PRN (22:10)
[2016-06-03] MEDS: chlordiazePOXIDE HCL 10 MG CAPSULE PO SCH (05:05)
[2016-06-03] MEDS: GABAPENTIN 300 MG CAPSULE (FP) PO SCH (06:28)
[2016-06-03 06:44] VITALS: BP 123/90; PULSE 82; TEMP 96.1
--- NOTE | 2016-06-03 06:49 | PN ---
[facility] Progress Note Note: patient is stable for discharge today,no withdrawal symptom,detox completed, follow up with after care program as arrangement,and pmd for medical problem,patient has all medication at home
--- NOTE | 2016-06-03 06:54 | DS ---
[facility] Detox Discharge Summary Admission Date: 05/30/16 Discharge Date: 06/03/16 - History Present History: Alcohol Dependence Additional Comments: follow up with after care program as arrangement,hypokalemia k is 3.2,has been receiving k dur 20 meq po bid since 06/01/16,encourage to eat banana and citrous juice,follow up with his own pmd Pertinent Past History: hypertension peripheral neuropathy cirrhosis of liver s/p lap band surgery - Physical Exam Results Vital Signs: Vital Signs Temperature 96.1 F L 06/03/16 06:44 Pulse Rate 82 06/03/16 06:44 Respiratory Rate 18 06/03/16 06:44 Blood Pressure 123/90 06/03/16 06:44 O2 Sat by Pulse Oximetry (%) Pertinent Admission Physical Exam Findings: withdrawal symptom - Treatment Hospital Course: Detox Protocol Followed, Detoxed Safely, Responded well, Discharged Condition Good Patient has Accepted a Rehab Referral to: declined - Medication Discharge Medications: Ambulatory Orders Gabapentin [Neurontin -] 600 mg PO TID 05/30/16 - Diagnosis (1) Alcohol dependence with uncomplicated withdrawal Current Visit: Yes Status: Acute (2) Hypertension Current Visit: Yes Status: Acute Qualifiers: Hypertension type: essential hypertension Qualified Code(s): I10 - Essential (primary) hypertension (3) Neuropathy Current Visit: Yes Status: Acute (4) Cirrhosis Current Visit: Yes Status: Chronic Qualifiers: Hepatic cirrhosis type: alcoholic cirrhosis Ascites presence: with ascites Qualified Code(s): K70.31 - Alcoholic cirrhosis of liver with ascites (5) low back pain herniated disc Current Visit: Yes Status: Chronic (6) LAP-BAND surgery status Current Visit: Yes Status: Resolved - AMA Did Patient Leave Against Medical Advice: No
== END 2016-06-03 07:10 | disposition home or self-care (01) | DRG 775 ==
LOC: YASAS 19:41 → Y3N 20:03
PROVIDERS: ADMIT Internal Medicine; ATTEND Internal Medicine
PROC: HZ2ZZZZ Detoxification Services for Substance Abuse Treatment (ICD-10-PCS; principal; 2016-05-30)
DX: F10.230 Alcohol dependence with withdrawal, uncomplicated (principal); I10 Essential (primary) hypertension; G62.9 Polyneuropathy, unspecified; K70.31 Alcoholic cirrhosis of liver with ascites; M54.5 Low back pain; N11.9 Chronic tubulo-interstitial nephritis, unspecified; E66.9 Obesity, unspecified; Z68.33 Body mass index [BMI] 33.0-33.9, adult; R00.0 Tachycardia, unspecified; Z98.84 Bariatric surgery status
CPT/HCPCS: 36415; 80053; 81003; 84443; 85027; 86593; 93005; 93010

== ENCOUNTER 2016-07-04 20:20 | Emergency (ER) | payer OTHER ==
[2016-07-04 20:24] VITALS: BP 154/97; PULSE 98; TEMP 98.5; BMI 36.2
--- NOTE | 2016-07-04 20:40 | PDOC ---
History of Present Illness - General History Source: Patient Exam Limitations: No Limitations <KarmenRamakrishna - Last Filed: 07/04/16 20:37> - General History Source: Patient Exam Limitations: No Limitations - History of Present Illness Initial Comments: 07/04/16 20:40 The patient is a 46 year old male, with no significant past medical history who presents to the emergency department with intermittent right sided groin pain for about 3 weeks. He reports the pain is a burning sensation, describing his pain as hot. He reports today it got severely worse where he was unable to to go down stairs. He denies any testicle pain. He reports being sexually active last epsiode 1-2 days ago. He denies any recent fevers, chills, headache or dizziness. He denies any recent nausea, vomit, diarrhea or constipation. Allergies: NKA Past surgical history: None reported. Social History: Nonsmoker. Denies drug use. Primary Care Physician: <Kiran Wheeler - Last Filed: 07/04/16 20:41> - General Chief Complaint: Pain Stated Complaint: RT GROIN PAIN Time Seen by Provider: 07/04/16 20:31 Past History - Past Medical History Anemia: No Asthma: No Cancer: No Cardiac Disorders: No CVA: No COPD: No CHF: No Dementia: No Diabetes: No GI Disorders: No Disorders: No HTN: Yes Hypercholesterolemia: No Kidney Stones: No Liver Disease: Yes (fatty liver, CIRHOSIS) Suicide Attempt (Hx): No Seizures: No Thyroid Disease: No (tsh pending/tachycardia x months) - Surgical History Abdominal Surgery: Yes (LAP BAND 2009/umbilical hernia repaired 2013) Appendectomy: No Cardiac Surgery: No Cholecystectomy: No GI Surgery: Yes (hernia repair) Lung Surgery: No Neurologic Surgery: No Orthopedic Surgery: Yes (ARTHROSCOPY LEFT SHOULDER 2011) - Reproductive History Testicular Surgery: No - Immunization History Immunization Up to Date: Yes - Psycho/Social/Smoking Cessation Hx Anxiety: No Suicidal Ideation: No Smoking Status: No Smoking History: Never smoked Have you smoked in the past 12 months: Yes Number of Cigarettes Smoked Daily: 0 Cigars Per Day: 0 'Breaking Loose' booklet given: 08/04/15 Hx Alcohol Use: Yes (CURRENTLY SOBER) Drug/Substance Use Hx: No Substance Use Type: Alcohol Hx Substance Use Treatment: Yes <Ramakrishna Peraza - Last Filed: 07/04/16 20:37> <Kiran Wheeler - Last Filed: 07/04/16 20:41> - Past Medical History Allergies/Adverse Reactions: Allergies Allergy/AdvReac Type Severity Reaction Status Date / Time No Known Allergies Allergy Verified 06/23/16 18:57 Home Medications: Ambulatory Orders Gabapentin [Neurontin -] 600 mg PO TID 05/30/16 Cyclobenzaprine HCl [Flexeril 10 mg] 10 mg PO BID 06/23/16 Furosemide [Lasix] 40 mg PO DAILY #3 tablet 06/23/16 Oxycodone HCl 10 mg PO Q4H PRN 06/23/16 Abd/GI Specific PMHX - Complaint Specific PMHX Hepatitis: No Pancreatitis: No <Ramakrishna Peraza - Last Filed: 07/04/16 20:37> Review of Systems - Review of Systems Constitutional: No: Symptoms Reported HEENTM: No: Symptoms Reported Respiratory: No: Symptoms reported Cardiac (ROS): No: Symptoms Reported ABD/GI: No: Symptoms Reported : No: Symptoms Reported Musculoskeletal: Yes: Other (RIGHT groin pain.) <Kiran Wheeler - Last Filed: 07/04/16 20:41> *Physical Exam - Vital Signs Last Vital Signs Temp Pulse Resp BP Pulse Ox 98.5 F 98 H 16 154/97 96 07/04/16 20:22 07/04/16 20:22 07/04/16 20:22 07/04/16 20:22 07/04/16 20:22 - Physical Exam General Appearance: Yes: Nourished, Appropriately Dressed. No: Apparent Distress HEENT: positive: Normal ENT Inspection Respiratory/Chest: positive: Normal Breath Sounds. negative: Respiratory Distress Cardiovascular: positive: Regular Rhythm, Regular Rate Gastrointestinal/Abdominal: positive: Normal Bowel Sounds, Soft, Hernia (RT INGUINAL NON COMPLICATED). negative: Tender Male Genitalia: positive: normal genitalia Musculoskeletal: negative: CVA Tenderness Neurologic: positive: Fully Oriented, Alert, Normal Mood/Affect, Normal Response , Motor Strength 5/5 <Ramakrishna Peraza - Last Filed: 07/04/16 20:37> - Vital Signs Last Vital Signs Temp Pulse Resp BP Pulse Ox 98.5 F 98 H 16 154/97 96 07/04/16 20:22 07/04/16 20:22 07/04/16 20:22 07/04/16 20:22 07/04/16 20:22 <Kiran Wheeler - Last Filed: 07/04/16 20:41> *DC/Admit/Observation/Transfer <Ramakrishna Peraza - Last Filed: 07/04/16 20:37> - Attestations Scribe Attestion: 07/04/16 20:41 Documentation prepared by Kiran Wheeler, acting as medical appointment scheduler for Ramakrishna Peraza MD. <Kiran Wheeler - Last Filed: 07/04/16 20:41> Diagnosis at time of Disposition: Inguinal hernia Qualifiers: Obstruction and gangrene presence: without obstruction or gangrene Laterality: unilateral Recurrence: not specified as recurrent Qualified Code(s): K40.90 - Unilateral inguinal hernia, without obstruction or gangrene, not specified as recurrent - Discharge Dispostion Disposition: HOME Condition at time of disposition: Stable - Referrals Referrals: Neil Rush MD [Primary Care Provider] - Call tomorrow - Patient Instructions Additional Instructions: NAPROXEN FOR PAIN SEE YOUR DOCTOR NEXT WEEK AVOID LIFTING WIGHTS RETURN IF WORSENING PAIN, VOMITING.
== END 2016-07-04 20:46 | disposition home or self-care (01) ==
LOC: FER 20:20
DX: K40.90 Unilateral inguinal hernia, without obstruction or gangrene, not specified as recurrent (principal); I10 Essential (primary) hypertension; K74.60 Unspecified cirrhosis of liver; K76.0 Fatty (change of) liver, not elsewhere classified; Z98.84 Bariatric surgery status
CPT/HCPCS: 99282-25

== ENCOUNTER 2016-07-16 11:11 | Emergency (ER) | payer OTHER ==
[2016-07-16 11:55] VITALS: BMI 35.1
--- NOTE | 2016-07-16 13:14 | PDOC ---
History of Present Illness - General Chief Complaint: Pain, Acute Stated Complaint: HERNIA, LOWER GROIN PAIN (PCP SENT) Time Seen by Provider: 07/16/16 13:12 - History of Present Illness Initial Comments: 07/16/16 13:30 The pt is a 46 year old male with a PMH of hypertension, hypokalemia, ETOH abuse , liver cirrhosis, peripheral neuropathy, chronic back pain, bipolar disorder who presents to ED complaining of right hernia. He has intermittent right sided groin pain for about 4 weeks. He reports the pain is a burning sensation, describing his pain as hot. It is worse with movement, better when lying flat. He denies any testicle pain. He denies any recent fevers, chills, headache or dizziness. He denies any recent nausea, vomit, diarrhea or constipation. The pt called his surgeon who referred him for outpatient f/u. Past History - Past Medical History Allergies/Adverse Reactions: Allergies Allergy/AdvReac Type Severity Reaction Status Date / Time No Known Allergies Allergy Verified 07/16/16 11:52 Home Medications: Ambulatory Orders Gabapentin [Neurontin -] 600 mg PO TID 05/30/16 Cyclobenzaprine HCl [Flexeril 10 mg] 10 mg PO BID 06/23/16 Furosemide [Lasix] 40 mg PO DAILY #3 tablet 06/23/16 Oxycodone HCl 10 mg PO Q4H PRN 06/23/16 Anemia: No Asthma: No Cancer: No Cardiac Disorders: No CVA: No COPD: No CHF: No Dementia: No Diabetes: No GI Disorders: No Disorders: No HTN: Yes Hypercholesterolemia: No Kidney Stones: No Liver Disease: Yes (fatty liver, CIRHOSIS) Suicide Attempt (Hx): No Seizures: No Thyroid Disease: No (tsh pending/tachycardia x months) Other medical history: inguinal hernia - Surgical History Abdominal Surgery: Yes (LAP BAND 2009/umbilical hernia repaired 2013) Appendectomy: No Cardiac Surgery: No Cholecystectomy: No GI Surgery: Yes (hernia repair) Lung Surgery: No Neurologic Surgery: No Orthopedic Surgery: Yes (ARTHROSCOPY LEFT SHOULDER 2011) - Reproductive History Testicular Surgery: No - Immunization History Immunization Up to Date: Yes - Psycho/Social/Smoking Cessation Hx Anxiety: No Suicidal Ideation: No Smoking Status: No Smoking History: Never smoked Have you smoked in the past 12 months: Yes Number of Cigarettes Smoked Daily: 0 Cigars Per Day: 0 'Breaking Loose' booklet given: 08/04/15 Hx Alcohol Use: Yes (CURRENTLY SOBER) Drug/Substance Use Hx: No Substance Use Type: None Hx Substance Use Treatment: Yes Review of Systems - Review of Systems Able to Perform ROS?: Yes Comments:: 07/16/16 13:40 REVIEW OF SYSTEMS CONSTITUTIONAL: Absent: fever, chills, diaphoresis, generalized weakness, malaise, loss of appetite, weight change HEENT: Absent: rhinorrhea, nasal congestion, throat pain, throat swelling, difficulty swallowing CARDIOVASCULAR: Absent: chest pain, syncope, palpitations, irregular heart rate, lightheadedness , peripheral edema RESPIRATORY: Absent: cough, shortness of breath, dyspnea with exertion, orthopnea, wheezing, stridor, hemoptysis GASTROINTESTINAL: abdominal pain in right groin Absent: abdominal distension, nausea, vomiting, diarrhea, constipation GENITOURINARY: Absent: dysuria, frequency, urgency, hesitancy, hematuria, flank pain, genital pain MUSCULOSKELETAL: Absent: myalgia, arthralgia, joint swelling, back pain, neck pain SKIN: Absent: rash, itching, pallor HEMATOLOGIC/IMMUNOLOGIC: Absent: easy bleeding, easy bruising, lymphadenopathy, frequent infections Is the patient limited Iranian proficient: No *Physical Exam - Vital Signs Last Vital Signs Temp Pulse Resp BP Pulse Ox 97.6 F 104 H 18 128/89 96 07/16/16 11:52 07/16/16 11:52 07/16/16 11:52 07/16/16 11:52 07/16/16 11:52 - Physical Exam Comments: 07/16/16 13:34 GENERAL: The patient is awake, alert, and fully oriented, in no acute distress. HEAD: Normal with no signs of trauma. EYES: PERRL, extraocular movements intact, sclera anicteric, conjunctiva clear. No ptosis. ENT: Ears normal, nares patent, oropharynx clear without exudates, moist mucous membranes. NECK: Trachea midline, full range of motion, supple. LUNGS: Breath sounds equal, clear to auscultation bilaterally, no wheezes, no crackles, no accessory muscle use. HEART: Regular rate and rhythm, S1, S2 without murmur, rub or gallop. ABDOMEN: Soft, nontender, nondistended, normoactive bowel sounds, no guarding, no rebound, no hepatosplenomegaly, tenderness to palpation in right groin, protruding when standing, no strangulation, reducable. EXTREMITIES: 2+ pulses, warm, well-perfused, no edema. NEUROLOGICAL: Normal speech, gait not observed. PSYCH: Normal mood, normal affect. SKIN: Warm, dry, normal turgor, no rashes, tattoo in upper Medical Decision Making - Medical Decision Making 07/16/16 13:48 The pt is 46 year old male who presents to ED complaining of inguinal hernia. The pt was seen b6y who recommended to discharge him with outpatient follow up. *DC/Admit/Observation/Transfer Diagnosis at time of Disposition: Right inguinal hernia - Discharge Dispostion Disposition: HOME Condition at time of disposition: Good Admit: No - Referrals Referrals: Neil Rush MD [Primary Care Provider] - - Patient Instructions Printed Discharge Instructions: DI for Groin Hernia Additional Instructions: Please see Dr. Mcduffie in his office in 24-48 hours. No heavy lifting, sneezing. If your symptoms worsen come back to emergency room as soon as possible. - Post Discharge Activity Work/School Note: Back to Work
--- NOTE | 2016-07-16 13:47 | PDOC ---
Attending Attestation - Resident Resident Name: Cynthia Dias - ED Attending Attestation I have performed the following: I have examined & evaluated the patient, The case was reviewed & discussed with the resident, I agree w/resident's findings & plan - HPI HPI: 07/16/16 13:44 46-year-old male with a past medical history as noted above Has had an approximate 4 weeks of symptoms of right inguinal hernia, which reduces he lays back flat Symptoms worsened today He spoke to his primary care physician Dr. Rush today, who sent him to the ER to meet Dr. Mcduffie Patient saw Dr. Mcduffie, and will arrange for urgent elective surgery - Physicial Exam PE: 07/16/16 13:46 To my exam Patient is alert and ambulatory On hernia check When patient stands and Valsalva's, a right inguinal hernia is present When he lays back, the hernia goes back in and it is soft and reducible and nontender - Medical Decision Making 07/16/16 13:47 Impression-right inguinal hernia-reducible He did see Dr. Mcduffie, will arrange for urgent outpatient elective surgery
[2016-07-16 14:08] VITALS: BP 145/89; PULSE 98; TEMP 98.1
--- NOTE | 2016-07-16 17:49 | CONSULT ---
Consult Consult Specialty:: Surgery Reason for Consultation:: Evaluate for right inguinal hernia possible incarceration - History of Present Illness History of Present Illness: 46 male with right inguinal hernia noted by his primary care physician states that he developed the onset of acute right groin pain and burning yesterday after doing physical activity Currently pain improved No nausea/vomiting No fevers +BM - History Source History Provided By: Patient, Caregiver - Past Medical History Cardio/Vascular: Yes: HTN Pulmonary: Yes: Sleep Apnea Hepatobiliary: Yes: Cirrhosis Psych: Yes: Addictions (alcohol) Musculoskeletal: Yes: Chronic low back pain - Past Surgical History Past Surgical History: Yes: Arthrosocopy (left shoulder, right knee), Bariatric Surgery (gastric band) - Alcohol/Substance Use Hx Alcohol Use: Yes (CURRENTLY SOBER) Number of Drinks Daily: 12 History of Substance Use: reports: None - Smoking History Smoking history: Never smoked Have you smoked in the past 12 months: Yes Aproximately how many cigarettes per day: 0 - Social History Usual Living Arrangement: With Significant Other ADL: Independent 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 of Recent Travel: No Home Medications - Allergies Allergies/Adverse Reactions: Allergies Allergy/AdvReac Type Severity Reaction Status Date / Time No Known Allergies Allergy Verified 07/16/16 11:52 - Home Medications Home Medications: Ambulatory Orders Gabapentin [Neurontin -] 600 mg PO TID 05/30/16 Cyclobenzaprine HCl [Flexeril 10 mg] 10 mg PO BID 06/23/16 Furosemide [Lasix] 40 mg PO DAILY #3 tablet 06/23/16 Oxycodone HCl 10 mg PO Q4H PRN 06/23/16 Family Disease History - Family Disease History Family Disease History: Other: Father (Alive: 65 alcoholic), Mother (Alive: 62: healthy), Brother (Alive: Healthy), Sister (Alive: Healthy), Son (Healthy), Daughter (Healthy) Review of Systems - Review of Systems Constitutional: denies: Chills, Fever HENT: reports: No Symptoms Neck: reports: No Symptoms Cardiovascular: denies: Chest Pain Respiratory: denies: Cough Gastrointestinal: denies: Abdominal Pain, Nausea, Vomiting Neurological: denies: No Symptoms Pain Intensity: 2 Physical Exam Vital Signs: Vital Signs Temperature 98.1 F 07/16/16 14:00 Pulse Rate 98 H 07/16/16 14:00 Respiratory Rate 17 07/16/16 14:00 Blood Pressure 145/89 07/16/16 14:00 O2 Sat by Pulse Oximetry (%) 99 07/16/16 14:00 Constitutional: Yes: Calm Neck: Yes: WNL Cardiovascular: Yes: Regular Rate and Rhythm Respiratory: Yes: Regular Gastrointestinal: Yes: Soft, Other (Fully reducible right inguinal hernia). No : Distention, Tenderness, Tenderness, Rebound Extremities: Yes: WNL Neurological: Yes: Alert, Oriented Problem List - Problems (1) Right inguinal hernia Code(s): K40.90 - UNIL INGUINAL HERNIA, W/O OBST OR GANGR, NOT SPCF RECUR Assessment/Plan Reducible right inguinal hernia No emergent intervention needed Discharge home Follow up in office for elective repair
== END 2016-07-16 14:00 | disposition home or self-care (01) ==
LOC: JER 11:11
DX: K40.90 Unilateral inguinal hernia, without obstruction or gangrene, not specified as recurrent (principal); I10 Essential (primary) hypertension; E87.6 Hypokalemia; F10.10 Alcohol abuse, uncomplicated; K70.30 Alcoholic cirrhosis of liver without ascites; G62.9 Polyneuropathy, unspecified; F31.9 Bipolar disorder, unspecified
CPT/HCPCS: 99283-25

== ENCOUNTER 2016-07-24 06:33 | Day surgery (SDC) | payer OTHER ==
[2016-07-23 14:30] VITALS: BMI 37.2
[2016-07-24] MEDS ORDERED: BUPIVACAINE HCL/PF 0.5% (5MG/ML) 10 ML VIAL ONE (07:34)
[2016-07-24] MEDS ORDERED: ceFAZolin SODIUM 1 GM VIAL IVPB ONE (08:25)
--- NOTE | 2016-07-24 10:29 | OP ---
Operative Note - Note: Operative Date: 07/24/16 Pre-Operative Diagnosis: right inguinal hernia Operation: robotic laparoscopic right inguinal hernia repair with mesh Findings: indirect right inguinal hernia Post-Operative Diagnosis: Same as Pre-op Surgeon: Simón Mcduffie Party Bus Driver: Meagan Pablo Anesthesiologist/SEAFOOD SPECIALIST: Domenica English Anesthesia: General Estimated Blood Loss (mls): 5 Fluid Volume Replaced (mls): 1,500 Operative Report Dictated: Yes
--- NOTE | 2016-07-24 10:30 | SURG ---
Surgery Associate Art Director Note Associate Art Director: Meagan Pablo PA-C Date of Service: 07/24/16 Diagnosis: right inguinal hernia Procedure: robotic laparoscopic right inguinal hernia repair with mesh I was present for the entirety of the operative procedure. For further detail, please refer to operative report. Visit type - Case Type Case Type: Scheduled Admission - Emergency Emergency Visit: No - New patient This patient is new to me today: Yes Date on this admission: 07/24/16 - Critical Care Critical Care patient: No
[2016-07-24] MEDS ORDERED: HYDROmorphone HCL CARPU-JECT 1 MG/1 ML DISP.SYRIN IVPUSH PRN (10:32)
[2016-07-24] MEDS ORDERED: oxyCODONE HCL 5 MG TABLET PO PRN (10:34)
[2016-07-24] MEDS ORDERED: ONDANSETRON 4 MG/2 ML VIAL IVPUSH PRN (10:34)
[2016-07-24] MEDS ORDERED: LACTATED RINGERS SOLUTION 1,000 ML IV SCH (10:45)
--- NOTE | 2016-07-24 11:57 | SPEC ---
DATE OF OPERATION: 07/24/2016 SURGEON: Raymon Mcduffie MD MINE SURVEYOR: MARCO Ha PREOPERATIVE DIAGNOSIS: Right inguinal hernia. POSTOPERATIVE DIAGNOSIS: Right inguinal hernia. FINDINGS: Indirect right inguinal hernia. PROCEDURE: Robotic right inguinal hernia repair with mesh. SPECIMENS: None. ESTIMATED BLOOD LOSS: 5 mL. DRAINS: None. ANESTHESIA: GT. REASON FOR PROCEDURE: This is a 46-year-old gentleman who presents to the office with right groin pain. He was evaluated and noted to have a right inguinal hernia. He was therefore consented for a robotic possible open right inguinal hernia repair with mesh. RISKS AND BENEFITS: The risks and benefits of Robotic, possible open right inguinal hernia repair, possible bilateral inguinal hernia repair, with mesh were explained. These included bleeding, infection, recurrence of hernia, NJ, DVT, PE, new hernia, mesh infection, injury to surrounding structures including the colon, bowel, bladder, ureter, spermatic cord, spermatic vessels, vas deferens, vessel injury, nerve injury, testicular injury including atrophy and possible loss of the testicle, and as some of the possible complications. The patient understood and signed informed consent. DESCRIPTION OF PROCEDURE: The patient was placed supine on the operating room table. Patient underwent general endotracheal intubation. A Euceda catheter was inserted by the nursing staff. The arms were tucked at the side, and he was placed on a beanbag device. The abdomen was prepped and draped in the usual sterile fashion. A time-out was performed. A periumbilical incision was made, and entrance into the abdominal cavity was obtained using an 8-mm robotic optical trocar under direct visualization with a laparoscope. Pneumoperitoneum was established. Subsequently, two additional 8-mm trocars were placed, one approximately 6-7 cm to the left of the umbilicus and one 6-7 cm to the right of the umbilicus. The patient was placed in steep Trendelenburg, [id number] position. The robot was brought over the field and docked. Dissection was performed at the console. The peritoneum was opened using robotic EndoShears. The preperitoneal space over the right inguinal region was dissected. The epigastric vessels were identified. These were dissected towards the anterior abdominal wall. Dissection in the preperitoneal space was continued from the medial umbilical ligament towards the anterior-superior iliac spine. Medially, dissection was performed until Marshal's ligament and the pubis were identified. Lateral to this, the spermatic cord structures including the vas deferens were identified. The contents of the hernia sac were identified and dissected down to the retroperitoneum. At this point, hemostasis was identified. Again, all of the hernia contents were noted to be completely dissected and noted to have no retraction back to its original position. A Symbotex mesh was then chosen, irrigated, and inserted into the abdominal cavity to cover the entire myopectineal orifice. This mesh was secured medially at the pubis and superolaterally to the abdominal wall with sutures. The mesh was noted to be in good position. The hernia was again noted to be fully reduced and without any tension. At this point, the peritoneal flap was closed using a 2-0 V-Loc suture. Again, hemostasis was identified. All needles were removed from the field, and the count was confirmed to be correct. The robotic instruments were removed. The robot was undocked and removed from the operative field. The patient was placed supine. Pneumoperitoneum was desufflated. All trocars were removed. All incision sites were irrigated. Marcaine was injected into all incision sites. Hemostasis was noted at all incision sites. All skin incisions were closed using 4-0 Biosyn. Sterile dressings were applied. The Euceda catheter was removed. The patient tolerated the procedure well and was transferred to the recovery room in stable condition. Alisa [id number]
[2016-07-24 15:51] VITALS: BP 127/71; PULSE 90; TEMP 98
== END 2016-07-24 13:00 | disposition home or self-care (01) ==
LOC: JASU-SURG 06:33
PROVIDERS: ATTEND Surgery
PROC: 8E0W4CZ Robotic Assisted Procedure of Trunk Region, Percutaneous Endoscopic Approach (ICD-10-PCS; 2016-07-24)
PROC: 0YU54JZ Supplement Right Inguinal Region with Synthetic Substitute, Percutaneous Endoscopic Approach (ICD-10-PCS; principal; 2016-07-24 08:00)
DX: K40.90 Unilateral inguinal hernia, without obstruction or gangrene, not specified as recurrent (principal)
CPT/HCPCS: 49650; S2900; 94760

== ENCOUNTER 2017-01-22 17:52 | Inpatient (IN) | payer OTHER ==
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
[2017-01-22] MEDS ORDERED: FOLIC ACID INJECTION - 1 MG, THIAMINE HCL 100 MG, MULTIVIT INJECTION ADULT 10 ML in SOD... IVPB ONE (18:24)
[2017-01-22 18:43] VITALS: BMI 32.1
[2017-01-22 19:03] LABS: BASOPHIL 0.2 % (0-2.0); EOSINOPHIL 0.1 % (0-4.5); MCH 33.5 pg (25.7-33.7); MCHC 34.5 g/dl (32.0-35.9); MEAN CELL VOLUME 97.2 fl (80-96); MEAN PLT VOLUME 7.5 fl (7.5-11.1); NEUTROPHILS 81.1 % (42.8-82.8); PLATELET COUNT 217 K/MM3 (134-434); RDW 14.3 % (11.9-15.9); WHITE BLOOD COUNT 8.1 K/mm3 (4.0-10.0)
[2017-01-22] MEDS ORDERED: LORazepam 2 MG/ML SDV VIAL ONE (19:13)
[2017-01-22] MEDS ORDERED: levETIRAcetam 500 MG/5 ML INJECTION VIAL IVPB ONE ×2 (19:31→19:38)
[2017-01-22 19:36] LABS: ALBUMIN 3.4 g/dl (3.4-5.0); ANION GAP 15 (8-16); CALCIUM 8.7 mg/dL (8.5-10.1); CO2 22 mmol/L (21-32); CREATININE 0.8 mg/dL (0.7-1.3); GLUCOSE,RANDOM 164 mg/dL (74-106); MAGNESIUM 1.5 mg/dL (1.8-2.4); SGOT/AST 48 U/L (15-37); SGPT/ALT 33 U/L (12-78); TOT PROT 8.3 g/dl (6.4-8.2)
[2017-01-22] MEDS ORDERED: SODIUM CHLORIDE 0.9% 500 ML INFUS.BAG IV ONE (19:41)
[2017-01-22 19:44] LABS: ALK PHOS 166 U/L (45-117); THYROID STIMULATING HORMONE 0.57 uIU/ml (0.358-3.74); TROPONIN I < 0.02 ng/ml (0.00-0.05)
[2017-01-22] MEDS ORDERED: MAGNESIUM SULF 50% (8.12 MEQ/2 ML-1 GM VIAL) IVPB ONE (19:44)
[2017-01-22 20:09] LABS: SALICYLATE < 4.0 mg/dl (0.0-30.0)
[2017-01-22 20:22] LABS: URINE APPEARANCE CLEAR; URINE BILIRUBIN NEGATIVE (NEGATIVE); URINE BLOOD NEGATIVE (NEGATIVE); URINE COLOR YELLOW; URINE GLUCOSE (UA) NEGATIVE (NEGATIVE); URINE KETONE 1+ (NEGATIVE); URINE NITRITE NEGATIVE (NEGATIVE); URINE UROBILINOGEN NEGATIVE mg/dL (0.2-1.0)
[2017-01-22] MEDS ORDERED: MAGNESIUM SULF 50% (8.12 MEQ/2 ML-1 GM VIAL) ONE (20:31)
[2017-01-22 20:34] LABS: URINE MARIJUANA THC NEGATIVE ng/ml (CUTOFF=50)
[2017-01-22] MEDS ORDERED: KCL 10 MEQ IVPB 100 ML IVPB ONE (20:34)
[2017-01-22] MEDS: KCL 10 MEQ IVPB 100 ML IVPB SCH ×3 (20:42→23:54)
[2017-01-22] MEDS ORDERED: diazePAM CARPU-JECT 10 MG/2 ML DISP.SYRIN IVPUSH ONE (21:03)
[2017-01-22 21:07] LABS: URINE PROTEIN 2+ (NEGATIVE)
[2017-01-22] MEDS ORDERED: ONDANSETRON 4 MG/2 ML VIAL IVPB PRN (21:44)
[2017-01-22] MEDS: SODIUM CHLORIDE 1,000 ML IV SCH (21:59)
[2017-01-22] MEDS: levETIRAcetam 500 MG TABLET (FP) PO SCH (22:33)
[2017-01-22 22:36] LABS: URINE LEUK ESTERASE Negative (NEGATIVE)
[2017-01-22] MEDS: DOCUSATE SODIUM 100 MG CAPSULE (FP) PO SCH (22:38)
[2017-01-22] MEDS: THIAMINE HCL 100 MG TABLET (FP) PO SCH (22:44)
[2017-01-22 22:46] LABS: URINE BACTERIA FEW /hpf (NONE SEEN); URINE HYALINE CAST 3 /lpf; URINE MUCUS RARE; URINE RBC <1 /hpf (0-3); URINE WBC 1 /hpf (3-5)
[2017-01-23] MEDS: chlordiazePOXIDE HCL 25 MG CAPSULE PO SCH ×5 (00:45→23:28)
[2017-01-23] MEDS ORDERED: levETIRAcetam 500 MG TABLET (FP) PO ONE (01:26)
[2017-01-23] MEDS ORDERED: chlordiazePOXIDE HCL 25 MG CAPSULE ONE ×3 (01:26→12:08)
[2017-01-23] MEDS ORDERED: DOCUSATE SODIUM 100 MG CAPSULE (FP) PO ONE (01:27)
[2017-01-23 02:28] LABS: URINE APPEARANCE CLOUDY; URINE BILIRUBIN NEGATIVE (NEGATIVE); URINE BLOOD NEGATIVE (NEGATIVE); URINE COLOR AMBER; URINE GLUCOSE (UA) NEGATIVE (NEGATIVE); URINE KETONE NEGATIVE (NEGATIVE); URINE NITRITE NEGATIVE (NEGATIVE); URINE PROTEIN NEGATIVE (NEGATIVE); URINE UROBILINOGEN 4.0 E.U/dl mg/dL (0.2-1.0)
[2017-01-23 02:49] LABS: ANION GAP 10 (8-16); BILIRUBIN,TOTAL 3.3 mg/dL (0.2-1.0); CALCIUM 8.1 mg/dL (8.5-10.1); CO2 25 mmol/L (21-32); CREATININE 0.5 mg/dL (0.7-1.3); GLUCOSE,RANDOM 97 mg/dL (74-106); SGOT/AST 43 U/L (15-37); SGPT/ALT 30 U/L (12-78); TOT PROT 7.2 g/dl (6.4-8.2)
[2017-01-23 02:50] LABS: ALK PHOS 154 U/L (45-117)
[2017-01-23 06:11] LABS: BASOPHIL 0.2 % (0-2.0); EOSINOPHIL 0.7 % (0-4.5); MCH 34.3 pg (25.7-33.7); MCHC 34.9 g/dl (32.0-35.9); MEAN CELL VOLUME 98.3 fl (80-96); MEAN PLT VOLUME 7.4 fl (7.5-11.1); NEUTROPHILS 69.1 % (42.8-82.8); PLATELET COUNT 161 K/MM3 (134-434); RDW 14.1 % (11.9-15.9)
[2017-01-23 06:34] LABS: ALBUMIN 3.1 g/dl (3.4-5.0); ANION GAP 8 (8-16); CALCIUM 8.8 mg/dL (8.5-10.1); CO2 26 mmol/L (21-32); CREATININE 0.5 mg/dL (0.7-1.3); MAGNESIUM 2.2 mg/dL (1.8-2.4); SGOT/AST 41 U/L (15-37); SGPT/ALT 28 U/L (12-78)
[2017-01-23 06:37] LABS: ALK PHOS 154 U/L (45-117); BILIRUBIN,TOTAL 3.7 mg/dL (0.2-1.0); GLUCOSE,RANDOM 90 mg/dL (74-106); PHOSPHOROUS 3.2 mg/dL (2.5-4.9); TOT PROT 7.2 g/dl (6.4-8.2)
[2017-01-23] MEDS: DOCUSATE SODIUM 100 MG CAPSULE (FP) PO SCH ×2 (10:30→21:14)
[2017-01-23] MEDS: MAGNESIUM OXIDE 400 MG TABLET (FP) PO SCH (10:30)
[2017-01-23] MEDS: PANTOPRAZOLE 40 MG TABLET (FP) PO SCH (10:30)
[2017-01-23] MEDS: FOLIC ACID 1 MG TABLET (FP) PO SCH (10:30)
[2017-01-23] MEDS: THIAMINE HCL 100 MG TABLET (FP) PO SCH (10:30)
[2017-01-23] MEDS: TAMSULOSIN HCL 0.4 MG CAP.ER.24H (FP) PO SCH (10:30)
[2017-01-23] MEDS: levETIRAcetam 500 MG TABLET (FP) PO SCH ×2 (10:30→21:14)
--- NOTE | 2017-01-23 10:40 | CONSULT ---
Consult - text type - Consultation Consultation Note: Neurology History of Present Illness The patient is a 46 year old male with past medical history of seizures, hypertension, hypokalemia, ETOH abuse, liver cirrhosis, peripheral neuropathy, chronic back pain, and bipolar disorder who presents to the ED with parents with complaints of possible seizure. Patients mother called the ambulance because she went to check on him downstairs as she noted that he was was acting strange and she noticed that the patient looked like he was out of it. She called her and the patient started to walk upstairs and they state that the patient was seizing while standing up with repetitive protrusion of his tongue and eyes deviated up for 10 minutes. He did not fall at the time, did not have urine incontinence or frothing at the mouth. The patient states that he did not have a seizure he was just not feeling well because she startled him. He reports drinking 10 beers a day and his last drink was 24 hours prior. His parents state that the patient has been drinking vodka, 4 lokos, beer and abuses his prescription drugs (xanax and prozac). The mother reports he has had multiple suicide attempts, most recently Apr 09, 2016 with alcohol ""overdose". The patient denies SI currently. Er contacted me night of admission and started patient on Keppra. He's unsure what his daily medication is and is tangential in conversation. No seizures overnight, CT head reviewed and without acute changes. EEG ordered. Multiple issues as described above that can provoke seizure vs pseudoseizure. - General Stated Complaint: ALTERED MENTAL STATUS Past History - Past Medical History Anemia: No Asthma: No Cancer: No Cardiac Disorders: No CVA: No COPD: No CHF: No Dementia: No Diabetes: No GI Disorders: No Disorders: No HTN: No Hypercholesterolemia: No Kidney Stones: No Liver Disease: Yes (fatty liver, CIRHOSIS) Seizures: No Thyroid Disease: No (tsh pending/tachycardia x months) - Surgical History Abdominal Surgery: Yes (LAP BAND 2009/umbilical hernia repaired 2013) Appendectomy: No Cardiac Surgery: No Cholecystectomy: No GI Surgery: Yes (hernia repair) Lung Surgery: No Neurologic Surgery: No Orthopedic Surgery: Yes (ARTHROSCOPY LEFT SHOULDER 2011) - Reproductive History Testicular Surgery: No - Immunization History Immunization Up to Date: Yes - Suicide/Smoking/Psychosocial Hx Smoking Status: No Smoking History: Never smoked Have you smoked in the past 12 months: No Number of Cigarettes Smoked Daily: 0 Cigars Per Day: 0 'Breaking Loose' booklet given: 08/04/15 Hx Alcohol Use: Yes (OCCASIONAL) Drug/Substance Use Hx: No Substance Use Type: Alcohol Hx Substance Use Treatment: No - Past Medical History Allergies/Adverse Reactions: Allergies Allergy/AdvReac Type Severity Reaction Status Date / Time No Known Allergies Allergy Verified 01/22/17 18:35 Home Medications: Ambulatory Orders Gabapentin [Neurontin -] 600 mg PO TID 05/30/16 Furosemide [Lasix] 40 mg PO DAILY #3 tablet 06/23/16 Oxycodone HCl 10 mg PO Q4H PRN 06/23/16 Alprazolam [Xanax] 2 mg PO TID PRN 07/23/16 Magnesium Oxide [Magnesium] 400 mg PO DAILY 07/23/16 Metaxalone [Skelaxin] 800 mg PO TID 07/23/16 Docusate Sodium [Colace -] 100 mg PO BID #14 capsule 07/24/16 Tamsulosin HCl [Flomax -] 0.4 mg PO DAILY 07/24/16 Review of Systems GENERAL/CONSTITUTIONAL: No fever or chills. No weakness. HEAD, EYES, EARS, NOSE AND THROAT: No change in vision. No ear pain or discharge. No sore throat. GASTROINTESTINAL: No nausea, vomiting, diarrhea or constipation. GENITOURINARY: No dysuria, frequency, or change in urination. CARDIOVASCULAR: No chest pain or shortness of breath. RESPIRATORY: No cough, wheezing, or hemoptysis. MUSCULOSKELETAL: No joint or muscle swelling or pain. No neck or back pain. SKIN: No rash NEUROLOGIC: +Seizure. No headache, vertigo, loss of consciousness, or change in strength/sensation. ENDOCRINE: No increased thirst. No abnormal weight change. HEMATOLOGIC/LYMPHATIC: No anemia, easy bleeding, or history of blood clots. ALLERGIC/IMMUNOLOGIC: No hives or skin allergy. *Physical Exam Vital Signs Period Temp Pulse Resp BP Sys/Sarmiento Pulse Ox Last 24 Hr 97.8 F-98.8 F 83-92 16-21 121-138/67-88 97-100 GENERAL: Awake, alert, and fully oriented, in no acute distress HEAD:+superficial abrasion to L scalp, hemostatic EYES: PERRLA, EOMI, sclera anicteric, conjunctiva clear ENT: Auricles normal inspection, hearing grossly normal, nares patent, oropharynx clear without exudates. Moist mucosa, +swelling on the L tongue consistent with tongue biting. NECK: Normal ROM, supple, no lymphadenopathy, JVD, or masses LUNGS: Breath sounds equal, clear to auscultation bilaterally. No wheezes, and no crackles HEART: tachycardic to 116, regular, normal S1 and S2, no murmurs, rubs or gallops ABDOMEN: Soft, nontender, normoactive bowel sounds. No guarding, no rebound. No masses EXTREMITIES: Normal range of motion, no edema. No clubbing or cyanosis. No cords, erythema, or tenderness NEUROLOGICAL: Cranial nerves II through XII grossly intact. Normal speech, strenght intact, sensory normal, gait deferred SKIN: Warm, Dry, normal turgor, no rashes or lesions noted. CT head reviewed and no acute changes Twelve-lead EKG was performed and reviewed by me. Normal sinus rhythm, rate 98, normal axis. Slightly prolonged QT. No ST elevations or T-wave inversions. CBCD WBC 8.0 K/mm3 (4.0-10.0) 01/23/17 05:30 RBC 4.37 M/mm3 (4.00-5.60) 01/23/17 05:30 Hgb 15.0 GM/dL (11.7-16.9) 01/23/17 05:30 Hct 43.0 % (35.4-49) 01/23/17 05:30 MCV 98.3 fl (80-96) H 01/23/17 05:30 MCHC 34.9 g/dl (32.0-35.9) 01/23/17 05:30 RDW 14.1 % (11.9-15.9) 01/23/17 05:30 Plt Count 161 K/MM3 (134-434) D 01/23/17 05:30 MPV 7.4 fl (7.5-11.1) L 01/23/17 05:30 CMP Sodium 135 mmol/L (136-145) L 01/23/17 05:30 Potassium 3.5 mmol/L (3.5-5.1) 01/23/17 05:30 Chloride 101 mmol/L (98-107) 01/23/17 05:30 Carbon Dioxide 26 mmol/L (21-32) 01/23/17 05:30 Anion Gap 8 (8-16) 01/23/17 05:30 BUN 5 mg/dL (7-18) L D 01/23/17 05:30 Creatinine 0.5 mg/dL (0.7-1.3) L 01/23/17 05:30 Creat Clearance w eGFR > 60 (>60) 01/23/17 05:30 Calcium 8.8 mg/dL (8.5-10.1) 01/23/17 05:30 Total Bilirubin 3.7 mg/dL (0.2-1.0) H 01/23/17 05:30 AST 41 U/L (15-37) H 01/23/17 05:30 ALT 28 U/L (12-78) 01/23/17 05:30 Alkaline Phosphatase 154 U/L (45-117) H 01/23/17 05:30 Total Protein 7.2 g/dl (6.4-8.2) 01/23/17 05:30 Albumin 3.1 g/dl (3.4-5.0) L 01/23/17 05:30 Plan: 46 year old male with past medical history of seizures, hypertension, hypokalemia, ETOH abuse, liver cirrhosis, peripheral neuropathy, chronic back pain, and bipolar disorder who presents to the ED with parents with complaints of possible seizure. Patients mother called the ambulance because she went to check on him downstairs as she noted that he was was acting strange and she noticed that the patient looked like he was out of it. She called her and the patient started to walk upstairs and they state that the patient was seizing while standing up with repetitive protrusion of his tongue and eyes deviated up for 10 minutes. He did not fall at the time, did not have urine incontinence or frothing at the mouth. The patient states that he did not have a seizure he was just not feeling well because she startled him. He reports drinking 10 beers a day and his last drink was 24 hours prior. His parents state that the patient has been drinking vodka, 4 lokos, beer and abuses his prescription drugs (xanax and prozac). No seizures overnight, CT head reviewed and without acute changes. EEG ordered. Multiple issues as described above that can provoke seizure vs pseudoseizure. Needs pysch evaluation Agree with consult for Dr. Dean Joaquin for substance abuse Continue Keppra 500mg twice daily Monitor for Etoh withdrawal Monitor for Benzo/opiod withdrawal IV/PO fluids, hydrate as needed Seizure precautions
[2017-01-23 10:44] LABS: URINE LEUK ESTERASE Negative (NEGATIVE)
--- NOTE | 2017-01-23 11:10 | HP ---
Admitting History and Physical - Primary Care Physician PCP: Neil Rush - Admission Chief Complaint: I feel fine History of Present Illness: Mr Blount is a 46 year old male who comes in after having witnessed seizure. Patient is pleasant but quite vague in his history. He says he was doing well at home, he went out with his father to visit a grave. He says he was enjoying the nice day and walking around. When he got home he felt strange but could not tell me how. He says "something happened" but could not describe it. He says he has stopped taking his antiseizure medications. He also says he is weaning himself off of his pain medications and his anxiety medications. He says he is feeling fine right now. He denies fevers, chills ,lightheadedness, dizziness, chest pain, shortness of breath, nausea, vomiting, diarrhea, constipation, difficulty or pain on urination, or swelling. Per the ER note patient has been drinking, even though he denies this to me, but stopped 24 hours prior to admission. Within 24 hours of stopping drinking he began to hallucinate. He then had an episode of seizures which prompted him to come in. Call attempted to mother but no answer History Source: Patient Limitations to Obtaining History: Clinical Condition - Past Medical History Cardiovascular: Yes: HTN Pulmonary: Yes: Sleep Apnea Hepatobiliary: Yes: Cirrhosis Psych: Yes: Addictions (alcohol) Musculoskeletal: Yes: Chronic low back pain - Past Surgical History Past Surgical History: Yes: Arthrosocopy (left shoulder, right knee), Bariatric Surgery (gastric band) - Smoking History Smoking history: Never smoked Have you smoked in the past 12 months: No Aproximately how many cigarettes per day: 0 - Alcohol/Substance Use Hx Alcohol Use: Yes (OCCASIONAL) Number of Drinks Daily: 12 History of Substance Use: reports: None - Social History Usual Living Arrangement: Yes: With Parent ADL: Independent 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 of Recent Travel: No Home Medications - Allergies Allergies/Adverse Reactions: Allergies Allergy/AdvReac Type Severity Reaction Status Date / Time No Known Allergies Allergy Verified 01/22/17 18:35 - Home Medications Home Medications: Ambulatory Orders Gabapentin [Neurontin -] 600 mg PO TID 05/30/16 Furosemide [Lasix] 40 mg PO DAILY #3 tablet 06/23/16 Oxycodone HCl 10 mg PO Q4H PRN 06/23/16 Alprazolam [Xanax] 2 mg PO TID PRN 07/23/16 Magnesium Oxide [Magnesium] 400 mg PO DAILY 07/23/16 Metaxalone [Skelaxin] 800 mg PO TID 07/23/16 Docusate Sodium [Colace -] 100 mg PO BID #14 capsule 07/24/16 Tamsulosin HCl [Flomax -] 0.4 mg PO DAILY 07/24/16 Family Disease History - Family Disease History Family Disease History: Other: Father (Alive: 65 alcoholic), Mother (Alive: 62: healthy), Brother (Alive: Healthy), Sister (Alive: Healthy), Son (Healthy), Daughter (Healthy) Review of Systems Findings/Remarks: Full review of systems obtained, as per HPI and otherwise negative Physical Examination Vital Signs: Vital Signs Temperature 37.1 C 01/23/17 09:00 Pulse Rate 90 01/23/17 09:00 Respiratory Rate 21 01/23/17 09:00 Blood Pressure 132/67 01/23/17 09:00 O2 Sat by Pulse Oximetry (%) 98 01/23/17 05:46 Constitutional: Yes: Well Nourished, No Distress, Calm Eyes: Yes: Conjunctiva Clear, EOM Intact, PERRL HENT: Yes: Atraumatic, Normocephalic Cardiovascular: Yes: Regular Rate and Rhythm. No: Gallop, Murmur, Rub Respiratory: Yes: Regular, CTA Bilaterally. No: Rales, Rhonchi, Wheezes Gastrointestinal: Yes: Normal Bowel Sounds, Soft. No: Distention, Tenderness Extremities: Yes: WNL Edema: No Labs: CBC, BMP 01/23/17 05:30 01/23/17 05:30 Imaging - Results Chest X-ray: Report Reviewed, Image Reviewed Cat Scan: Report Reviewed Problem List - Problems (1) Alcohol withdrawal Assessment/Plan: -patient presents with signs and symptoms of alcohol withdrawal -admit to hospital -place on librium -seems more appropriate today on seeing -substance abuse consult Code(s): F10.239 - ALCOHOL DEPENDENCE WITH WITHDRAWAL, UNSPECIFIED Qualifiers : Complication of substance-induced condition: uncomplicated Qualified Code(s): F10.230 - Alcohol dependence with withdrawal, uncomplicated; F10.230 - Alcohol dependence with withdrawal, uncomplicated; F10.230 - Alcohol dependence with withdrawal, uncomplicated (2) Hallucination Assessment/Plan: -appears resolved -consult psychiatry Code(s): R44.3 - HALLUCINATIONS, UNSPECIFIED (3) History of cirrhosis of liver Assessment/Plan: -outpatient GI follow up -cessation of alcohol ingestion Code(s): Z87.19 - PERSONAL HISTORY OF OTHER DISEASES OF THE DIGESTIVE SYSTEM (4) Seizure Assessment/Plan: -appreciate neurology assistance -placed on keppra -treat alcohol withdrawal Code(s): R56.9 - UNSPECIFIED CONVULSIONS (5) BPH (benign prostatic hyperplasia) Assessment/Plan: -continue flomax Code(s): N40.0 - BENIGN PROSTATIC HYPERPLASIA WITHOUT LOWER URINRY TRACT SYMP
--- NOTE | 2017-01-23 11:30 | CON.GI ---
Consult Consult Specialty:: GI Referred by:: Dr. Lacho Salazar Reason for Consultation:: history of liver cirrhosis - History of Present Illness History of Present Illness: Chart reviewed. ED records and Neurology consult noted. The patient's mother is at bedside and reports Tom exhibiting erratic behavior and hallucinations worsening in the last 2 weeks. There is a history of the same however it was under better controlled in the past. Tom admits drinking beer at least 3 times/ week. His mother states he also drinks vodka. Denies elicit drug use. Denies jaundice, fever, chills, nausea, vomiting, distended abdomen, fluctuating abdominal girth, acute changes in weight, or significant weight loss. Denies melena, hematochezia, dysphagia, odynophagia. 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 (questionable vs pseudoseizures ) Cardio/Vascular: Yes: HTN Pulmonary: Yes: Sleep Apnea Gastrointestinal: No: Ascites, Constipation, GERD, GI Bleed, Pancreatitis Hepatobiliary: Yes: Cirrhosis, Cholelithiasis Psych: Yes: Addictions (alcohol), Anxiety Musculoskeletal: Yes: Chronic low back pain - Past Surgical History Past Surgical History: Yes: Arthrosocopy (left shoulder, right knee), Bariatric Surgery (gastric band) - Alcohol/Substance Use Hx Alcohol Use: Yes (OCCASIONAL) Number of Drinks Daily: 12 History of Substance Use: reports: None - Smoking History Smoking history: Never smoked Have you smoked in the past 12 months: No Aproximately how many cigarettes per day: 0 - Social History Usual Living Arrangement: With Parent (mother) ADL: Independent 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 of Recent Travel: No Home Medications - Allergies Allergies/Adverse Reactions: Allergies Allergy/AdvReac Type Severity Reaction Status Date / Time No Known Allergies Allergy Verified 01/22/17 18:35 - Home Medications Home Medications: Ambulatory Orders Gabapentin [Neurontin -] 600 mg PO TID 05/30/16 Furosemide [Lasix] 40 mg PO DAILY #3 tablet 06/23/16 Oxycodone HCl 10 mg PO Q4H PRN 06/23/16 Alprazolam [Xanax] 2 mg PO TID PRN 07/23/16 Magnesium Oxide [Magnesium] 400 mg PO DAILY 07/23/16 Metaxalone [Skelaxin] 800 mg PO TID 07/23/16 Docusate Sodium [Colace -] 100 mg PO BID #14 capsule 07/24/16 Tamsulosin HCl [Flomax -] 0.4 mg PO DAILY 07/24/16 Family Disease History - Family Disease History Family History: Unremarkable (father drinks) Family Disease History: Other: Father (Alive: 65 alcoholic), Mother (Alive: 62: healthy), Brother (Alive: Healthy), Sister (Alive: Healthy), Son (Healthy), Daughter (Healthy) Review of Systems Findings/Remarks: Chart reviewed, See ED records and HP - Review of Systems Constitutional: denies: Chills, Fever, Loss of Appetite, Night Sweats, Unintentional Wgt. Loss Cardiovascular: denies: Chest Pain Respiratory: reports: No Symptoms Gastrointestinal: reports: Constipation. denies: Abdominal Pain, Bloating, Dysphagia, Indigestion, Melena, Nausea, Rectal Bleeding, Vomiting, Vomiting Blood Neurological: reports: Other (see hp and nerology consult) Endocrine: denies: Unexplained Weight Loss Psychiatric: reports: Hallucinations, Other Physical Exam-GI Vital Signs: Vital Signs Temperature 98.8 F 01/23/17 09:00 Pulse Rate 90 01/23/17 09:00 Respiratory Rate 21 01/23/17 09:00 Blood Pressure 132/67 01/23/17 09:00 O2 Sat by Pulse Oximetry (%) 98 01/23/17 05:46 Constitutional: Yes: No Distress, Anxious Eyes: Yes: Conjunctiva Clear HENT: Yes: Atraumatic Neck: Yes: Supple Cardiovascular: Yes: Regular Rate and Rhythm Respiratory: Yes: Regular Gastrointestinal Inspection: No: Ascites, Distention ...Auscultate: Yes: Normoactive Bowel Sounds ...Palpate: Yes: Soft, Splenomegaly. No: Guarding, Hepatomegaly, Mass, Pulsatile Mass, Tenderness, Tenderness, Epigastium, Tenderness, Rebound ...Percussion: Yes: Tympanitic. No: Dullness, Fluid Wave Musculoskeletal: Yes: WNL Extremities: Yes: WNL Edema: No Integumentary: Yes: Tattoos. No: Jaundice Neurological: Yes: Alert, Oriented Labs: CBC, BMP Home Medications Medication Instructions Recorded Gabapentin [Neurontin -] 600 mg PO TID 05/30/16 Furosemide [Lasix] 40 mg PO DAILY #3 tablet 03/12/17 Oxycodone HCl 10 mg PO Q4H PRN 06/23/16 Alprazolam [Xanax] 2 mg PO TID PRN 07/23/16 Magnesium Oxide [Magnesium] 400 mg PO DAILY 07/23/16 Metaxalone [Skelaxin] 800 mg PO TID 07/23/16 Docusate Sodium [Colace -] 100 mg PO BID #14 capsule 07/24/16 Tamsulosin HCl [Flomax -] 0.4 mg PO DAILY 07/24/16 Vital Signs - 24 hr 01/22/17 01/22/17 01/22/17 18:00 21:44 22:43 Temperature 97.8 F 98.3 F Pulse Rate 92 H Pulse Rate [ 91 H Left Radial] Respiratory 16 18 Rate Blood Pressure 131/87 Blood Pressure 138/88 [Left Arm] O2 Sat by Pulse 100 97 100 Oximetry (%) 01/23/17 01/23/17 01/23/17 02:43 05:31 05:46 Temperature Pulse Rate Pulse Rate [ 83 87 Left Radial] Respiratory 18 20 Rate Blood Pressure Blood Pressure 121/70 128/79 [Left Arm] O2 Sat by Pulse 100 100 98 Oximetry (%) 01/23/17 09:00 Temperature 98.8 F Pulse Rate 90 Pulse Rate [ Left Radial] Respiratory 21 Rate Blood Pressure 132/67 Blood Pressure [Left Arm] O2 Sat by Pulse 99 Oximetry (%) Hepatic Panel Total Bilirubin 3.7 mg/dL (0.2-1.0) H 01/23/17 05:30 AST 41 U/L (15-37) H 01/23/17 05:30 ALT 28 U/L (12-78) 01/23/17 05:30 Alkaline Phosphatase 154 U/L (45-117) H 01/23/17 05:30 Albumin 3.1 g/dl (3.4-5.0) L 01/23/17 05:30 CBC, BMP 01/23/17 05:30 01/23/17 05:30 Urine Test Results Urine Color [place] 01/23/17 02:15 Urine Appearance Cloudy 01/23/17 02:15 Urine pH 8.0 (5.0-8.0) 01/23/17 02:15 Ur Specific [place] 1.020 (1.005-1.025) 01/23/17 02:15 Urine Protein Negative (NEGATIVE) 01/23/17 02:15 Urine Glucose (UA) Negative (NEGATIVE) 01/23/17 02:15 Urine Ketones Negative (NEGATIVE) 01/23/17 02:15 Urine Blood Negative (NEGATIVE) 01/23/17 02:15 Urine Nitrite Negative (NEGATIVE) 01/23/17 02:15 Urine Bilirubin Negative (NEGATIVE) 01/23/17 02:15 Ur Leukocyte Esterase Negative (NEGATIVE) 01/23/17 02:15 Urine RBC <1 /hpf (0-3) 01/22/17 20:10 Urine WBC 1 /hpf (3-5) 01/22/17 20:10 Ur Epithelial Cells Rare /hpf (FEW) 01/22/17 20:10 Urine Bacteria Few /hpf (NONE SEEN) 01/22/17 20:10 Urine Mucus Rare 01/22/17 20:10 Urine drug - neg Imaging - Results Cat Scan: Report Reviewed (2016) Ultrasound: Report Reviewed (06/28) MRI: Report Reviewed (04/2016) Problem List - Problems (1) Alcoholic cirrhosis of liver Assessment/Plan: Chronic, ongoing alcohol use in settings of possible liver cirrhosis. Noted to have mild cholestasis with hepatitis. Being admitted for erratic behavior and hallucinations. Doubt encephalopathy. No significant GI/hepatology findings on the exam. Psychiatric evaluation Substance abuse counseling US liver EGD to evaluate for varices Amonia level direct bili will follow Code(s): K70.30 - ALCOHOLIC CIRRHOSIS OF LIVER WITHOUT ASCITES Qualifiers: Ascites presence: without ascites Qualified Code(s): K70.30 - Alcoholic cirrhosis of liver without ascites; K70.30 - Alcoholic cirrhosis of liver without ascites; K70.30 - Alcoholic cirrhosis of liver without ascites (2) History of cirrhosis of liver Code(s): Z87.19 - PERSONAL HISTORY OF OTHER DISEASES OF THE DIGESTIVE SYSTEM (3) Alcohol abuse Code(s): F10.10 - ALCOHOL ABUSE, UNCOMPLICATED (4) Cholestasis Code(s): K83.1 - OBSTRUCTION OF BILE DUCT (5) Hallucination Assessment/Plan: Psychiatry consult Code(s): R44.3 - HALLUCINATIONS, UNSPECIFIED (6) Elevated liver enzymes Code(s): R74.8 - ABNORMAL LEVELS OF OTHER SERUM ENZYMES
--- NOTE | 2017-01-23 11:56 | EKG ---
Test Reason : Blood Pressure : / mmHG Vent. Rate : 098 BPM Atrial Rate : 098 BPM P-R Int : 162 ms QRS Dur : 094 ms QT Int : 396 ms P-R-T Axes : 040 024 033 degrees QTc Int : 505 ms NORMAL SINUS RHYTHM PROLONGED QT ABNORMAL ECG WHEN COMPARED WITH ECG OF 01-JUN-2016 11:09, NO SIGNIFICANT CHANGE WAS FOUND Confirmed by JOHN KAHN MD ([id number]) on 01/23/2017 11:56:14 AM Referred By: Confirmed By:JOHN KAHN MD
--- NOTE | 2017-01-23 13:20 | PN ---
Mental Health Exam - Mental Status Exam Alert and Oriented to: Time, Place ("i thought i was in [place]" ), Person Cognitive Function: Grossly Intact Patient Appearance: Unkempt (unshaven, tattoos all over skin. ), Bizarre (hair shved at sides, slovenian, stated don in alchol prank. ) Mood: Elated (over familoiar), Expansive Affect: Labile Patient Behavior: Distractible, Talkative, Cooperative Speech Pattern: Rambling, Excessive (mild grandiosity. 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 ) Hallucinations: Denies Suicidal Ideation: None, Denies Homicidal Ideation: None, Denies Insight/Judgement: Fair (Substance use disorder. ) Sleep: Poorly (use of alchol/ xanax) Appetite: Fair, Weight loss Muscle strength/Tone: Normal Gait/Station: Deferred
--- NOTE | 2017-01-23 13:26 | PN ---
Progress Note, Physician Chief Complaint: 46 yo male was a 911 call after a 10 min seizure during ethoh/ opoid withdrawal. Client has long history of attending rehabs and detox. 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 Sleep ok but use of Benzo. Has VH , likely in alchol withdrawl, DT. Recent bizzarre behaviour, walking to [employer], to [employer] across street. - Current Medication List Current Medications: Active Medications Acetaminophen (Tylenol -) 650 mg PO Q6H PRN PRN Reason: FEVER OR PAIN Chlordiazepoxide HCl (Librium -) 25 mg PO Q6HPO [facility] Last Admin: 01/23/17 12:21 Dose: 25 mg Docusate Sodium (Colace -) 100 mg PO BID [facility] Last Admin: 01/23/17 10:30 Dose: 100 mg Folic Acid (Folic Acid -) 1 mg PO DAILY [facility] Last Admin: 01/23/17 10:30 Dose: 1 mg Sodium Chloride (Normal Saline -) 1,000 mls @ 75 mls/hr IV ASDIR [facility] Last Admin: 01/22/17 21:59 Dose: 75 mls/hr Levetiracetam (Keppra -) 500 mg PO BID [facility] Last Admin: 01/23/17 10:30 Dose: 500 mg Magnesium Oxide (Mag-Ox -) 400 mg PO DAILY [facility] Last Admin: 01/23/17 10:30 Dose: 400 mg Ondansetron HCl (Zofran Injection) 4 mg IVPB Q6H PRN PRN Reason: NAUSEA Pantoprazole Sodium (Protonix -) 40 mg PO DAILY [facility] Last Admin: 01/23/17 10:30 Dose: 40 mg Tamsulosin HCl (Flomax -) 0.4 mg PO DAILY@0830 [facility] Last Admin: 01/23/17 10:30 Dose: 0.4 mg Thiamine HCl (Vitamin B1 -) 100 mg PO DAILY [facility] Last Admin: 01/23/17 10:30 Dose: 100 mg - Objective Vital Signs: Vital Signs Temperature 98.8 F 01/23/17 09:00 Pulse Rate 90 01/23/17 09:00 Respiratory Rate 21 01/23/17 09:00 Blood Pressure 132/67 01/23/17 09:00 O2 Sat by Pulse Oximetry (%) 99 01/23/17 09:00 Labs: CBC, BMP 01/23/17 05:30 01/23/17 05:30 Problem List - Problems (1) Hallucination Code(s): R44.3 - HALLUCINATIONS, UNSPECIFIED (2) Alcohol abuse Code(s): F10.10 - ALCOHOL ABUSE, UNCOMPLICATED Assessment/Plan Spoke with mother Fiona quinonez, consentby son, 1-[address] also from last pm , dr eubanks was contacted over the phone. She claimed he is getting worse in last 6 month, as she allowed him back to home, on contract to not drink but broke contract, she still rescue, some enabling? requested that he have mental health , [facility] dual diagnosis follow up. See a Dr Rush who rx for oxycontin , for old crush injury and xanax fro anxiety/sleep?. 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 No suicidal. Need to follow up in [facility] substance abuse clinic, rehab if he consents. may discontinue 1;1 Does not want to voluntary admit to psychiatry but willling to FU on discharge, which mother is aware also. spoke with dr Gonzales and NONA Banuelos in the ER also.
[2017-01-23] MEDS ORDERED: ACETAMINOPHEN 325 MG TABLET (FP) ONE (16:50)
[2017-01-23] MEDS: ACETAMINOPHEN 325 MG TABLET (FP) PO PRN ×2 (16:51→23:56)
[2017-01-23] MEDS: SODIUM CHLORIDE 1,000 ML IV SCH (18:09)
[2017-01-24] MEDS ORDERED: diphenhydrAMINE HCL 25 MG CAPSULE (FP) PO ONE (02:03)
[2017-01-24] MEDS ORDERED: chlordiazePOXIDE 5 MG CAPSULE PO SCH (05:00)
[2017-01-24] MEDS: chlordiazePOXIDE HCL 25 MG CAPSULE PO SCH ×2 (05:34→08:09)
[2017-01-24 07:23] LABS: BASOPHIL 0.7 % (0-2.0); EOSINOPHIL 2.2 % (0-4.5); MCH 33.4 pg (25.7-33.7); MCHC 33.8 g/dl (32.0-35.9); MEAN CELL VOLUME 98.9 fl (80-96); MEAN PLT VOLUME 7.5 fl (7.5-11.1); NEUTROPHILS 51.5 % (42.8-82.8); PLATELET COUNT 137 K/MM3 (134-434); RDW 14.4 % (11.9-15.9); WHITE BLOOD COUNT 4.5 K/mm3 (4.0-10.0)
[2017-01-24 07:36] LABS: ANION GAP 8 (8-16); CALCIUM 8.4 mg/dL (8.5-10.1); CO2 28 mmol/L (21-32); GLUCOSE,RANDOM 73 mg/dL (74-106)
[2017-01-24 07:37] LABS: CREATININE 0.6 mg/dL (0.7-1.3); MAGNESIUM 1.9 mg/dL (1.8-2.4); PHOSPHOROUS 3.1 mg/dL (2.5-4.9)
--- NOTE | 2017-01-24 08:23 | PN ---
Progress Note, Physician History of Present Illness: No acute events. Refuses treatments, as per nurse. - Current Medication List Current Medications: Active Medications Acetaminophen (Tylenol -) 650 mg PO Q6H PRN PRN Reason: FEVER OR PAIN Last Admin: 01/23/17 23:56 Dose: 650 mg Chlordiazepoxide HCl (Librium -) 25 mg PO Q6HPO [facility] Last Admin: 01/24/17 08:09 Dose: 25 mg Docusate Sodium (Colace -) 100 mg PO BID [facility] Last Admin: 01/23/17 21:14 Dose: 100 mg Folic Acid (Folic Acid -) 1 mg PO DAILY [facility] Last Admin: 01/23/17 10:30 Dose: 1 mg Sodium Chloride (Normal Saline -) 1,000 mls @ 75 mls/hr IV ASDIR [facility] Last Admin: 01/23/17 18:09 Dose: 75 mls/hr Levetiracetam (Keppra -) 500 mg PO BID [facility] Last Admin: 01/23/17 21:14 Dose: 500 mg Magnesium Oxide (Mag-Ox -) 400 mg PO DAILY [facility] Last Admin: 01/23/17 10:30 Dose: 400 mg Ondansetron HCl (Zofran Injection) 4 mg IVPB Q6H PRN PRN Reason: NAUSEA Pantoprazole Sodium (Protonix -) 40 mg PO DAILY [facility] Last Admin: 01/23/17 10:30 Dose: 40 mg Tamsulosin HCl (Flomax -) 0.4 mg PO DAILY@0830 [facility] Last Admin: 01/23/17 10:30 Dose: 0.4 mg Thiamine HCl (Vitamin B1 -) 100 mg PO DAILY [facility] Last Admin: 01/23/17 10:30 Dose: 100 mg - Objective Vital Signs: Vital Signs Temperature 98.2 F 01/24/17 06:00 Pulse Rate 66 01/24/17 06:00 Respiratory Rate 16 01/24/17 06:00 Blood Pressure 129/82 01/24/17 06:00 O2 Sat by Pulse Oximetry (%) 99 01/23/17 20:13 Constitutional: Yes: No Distress, Anxious HENT: Yes: Atraumatic Neck: Yes: Supple Cardiovascular: Yes: Regular Rate and Rhythm Gastrointestinal: Yes: Normal Bowel Sounds. No: Ascites, Distention, Palpable Mass, Pulsatile Mass, Rectal Bleeding, Tenderness, Tenderness, Epigastrium, Tenderness, Rebound, Vomiting Edema: No Integumentary: No: Jaundice Neurological: Yes: Alert, Oriented Psychiatric: Yes: Agitated, Other (talkative). No: Suicidal Ideation Labs: CBC, BMP 01/24/17 05:10 01/24/17 05:10 Active Orders - 24 Hr 01/23/17 08:30 Tamsulosin HCl [Flomax -] 0.4 mg PO DAILY@0830 01/23/17 10:00 Folic Acid - 1 mg PO DAILY Magnesium Oxide [Mag-Ox -] 400 mg PO DAILY Pantoprazole Sodium [Protonix -] 40 mg PO DAILY 01/23/17 12:56 Acetaminophen [Tylenol -] 650 mg PO Q6H PRN 01/23/17 16:30 Consult [Physician Consultation] Physician 1 01/23/17 Lunch Regular Diet [DT] CBCD WBC 4.5 K/mm3 (4.0-10.0) D 01/24/17 05:10 RBC 4.48 M/mm3 (4.00-5.60) 01/24/17 05:10 Hgb 14.9 GM/dL (11.7-16.9) 01/24/17 05:10 Hct 44.3 % (35.4-49) 01/24/17 05:10 MCV 98.9 fl (80-96) H 01/24/17 05:10 MCHC 33.8 g/dl (32.0-35.9) 01/24/17 05:10 RDW 14.4 % (11.9-15.9) 01/24/17 05:10 Plt Count 137 K/MM3 (134-434) 01/24/17 05:10 MPV 7.5 fl (7.5-11.1) 01/24/17 05:10 CMP Sodium 140 mmol/L (136-145) 01/24/17 05:10 Potassium 4.0 mmol/L (3.5-5.1) 01/24/17 05:10 Chloride 104 mmol/L (98-107) 01/24/17 05:10 Carbon Dioxide 28 mmol/L (21-32) 01/24/17 05:10 Anion Gap 8 (8-16) 01/24/17 05:10 BUN 6 mg/dL (7-18) L 01/24/17 05:10 Creatinine 0.6 mg/dL (0.7-1.3) L 01/24/17 05:10 Creat Clearance w eGFR > 60 (>60) 01/23/17 05:30 Calcium 8.4 mg/dL (8.5-10.1) L 01/24/17 05:10 Total Bilirubin 3.7 mg/dL (0.2-1.0) H 01/23/17 05:30 AST 41 U/L (15-37) H 01/23/17 05:30 ALT 28 U/L (12-78) 01/23/17 05:30 Alkaline Phosphatase 154 U/L (45-117) H 01/23/17 05:30 Total Protein 7.2 g/dl (6.4-8.2) 01/23/17 05:30 Albumin 3.1 g/dl (3.4-5.0) L 01/23/17 05:30 Vital Signs - 24 hr 01/23/17 01/23/17 01/23/17 09:00 13:00 18:36 Temperature 98.8 F 97.5 F L 98.2 F Pulse Rate 90 102 H 84 Respiratory 21 21 14 Rate Blood Pressure 132/67 120/96 134/68 O2 Sat by Pulse 99 99 Oximetry (%) 01/23/17 01/23/17 01/24/17 20:13 21:00 01:00 Temperature 98.1 F Pulse Rate 94 H 69 Respiratory 16 16 18 Rate Blood Pressure 134/84 135/84 O2 Sat by Pulse 99 Oximetry (%) 01/24/17 06:00 Temperature 98.2 F Pulse Rate 66 Respiratory 16 Rate Blood Pressure 129/82 O2 Sat by Pulse Oximetry (%) Problem List - Problems (1) Alcoholic cirrhosis of liver Assessment/Plan: Chronic, ongoing alcohol use in settings of possible liver cirrhosis. Noted to have mild cholestasis with hepatitis. Being admitted for erratic behavior and hallucinations. Doubt encephalopathy. No significant GI/hepatology findings on the exam. Psychiatric evaluation Substance abuse counseling Amonia level direct bili US liver and EGD to evaluate for varices can be done on OP bases. Code(s): K70.30 - ALCOHOLIC CIRRHOSIS OF LIVER WITHOUT ASCITES Qualifiers: Ascites presence: without ascites Qualified Code(s): K70.30 - Alcoholic cirrhosis of liver without ascites; K70.30 - Alcoholic cirrhosis of liver without ascites; K70.30 - Alcoholic cirrhosis of liver without ascites (2) History of cirrhosis of liver Code(s): Z87.19 - PERSONAL HISTORY OF OTHER DISEASES OF THE DIGESTIVE SYSTEM (3) Alcohol abuse Code(s): F10.10 - ALCOHOL ABUSE, UNCOMPLICATED (4) Cholestasis Code(s): K83.1 - OBSTRUCTION OF BILE DUCT (5) Hallucination Code(s): R44.3 - HALLUCINATIONS, UNSPECIFIED (6) Elevated liver enzymes Code(s): R74.8 - ABNORMAL LEVELS OF OTHER SERUM ENZYMES
--- NOTE | 2017-01-24 08:59 | CONSULT ---
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 Denies all symptoms at this time, no complaints - wants to go home, no cooperative fully with history taking. Tremors and Labs reviewed macrocytosis noted indicating everyday drinking at a high level. Denies h/o seizures or DTS in past. Denies psychiatric illness. - History Source History Provided By: Patient, Medical Record Limitations to Obtaining History: Poor Historian - Alcohol/Substance Use Hx Alcohol Use: Yes Hx Substance Use: No Hx Substance Use Treatment: Yes ([facility] treatment program) - Current Drug/Alcohol Use Alcohol Frequency: 3-6 times per week - Past Medical History EARLY CHILDHOOD COORDINATOR: Yes: Seizure (questionable vs pseudoseizures ) Cardio/Vascular: Yes: HTN Pulmonary: Yes: Sleep Apnea Gastrointestinal: No: Ascites, Constipation, GERD, GI Bleed, Pancreatitis Hepatobiliary: Yes: Cirrhosis Psych: Yes: Addictions (alcohol) Musculoskeletal: Yes: Chronic low back pain - Past Surgical History Past Surgical History: Yes: Arthrosocopy (left shoulder, right knee), Bariatric Surgery (gastric band) CIWA Score - CIWA Score Nausea/Vomitin-No Nausea/No Vomiting Muscle Tremors: 2 Anxiety: 4-Mod. Anxious/Guarded Agitation: 4-Moderately Restless Paroxysmal Sweats: No Perspiration Orientation: 0-Oriented Tacttile Disturbances: 0-None Auditory Disturbances: 0-None Visual Disturbances: 0-None Headache: 0-None Present CIWA-Ar Total Score: 10 Assessment Plan - Diagnosis (1) Alcohol dependence with uncomplicated withdrawal Status: Acute (2) Head trauma Status: Acute - Plan Plan: patient is refusing detox, advised to return to intensive outpatient treatment at [facility] if he does nto want inpatient detox at this time. Libirum prn ordered - Medication Detox Regimen/Protocol: Not Applicable (refusing detox,lbirium prn and for insomnia odered, clondiine for tachycardia and hypertension)
[2017-01-24] MEDS ORDERED: chlordiazePOXIDE HCL 25 MG CAPSULE PO PRN (09:08)
[2017-01-24] MEDS ORDERED: ONDANSETRON 8 MG TABLET (FP) PO PRN (09:15)
--- NOTE | 2017-01-24 09:53 | PN ---
Progress Note (short form) - Note Progress Note: Neurology History of Present Illness The patient is a 46 year old male with past medical history of seizures, hypertension, hypokalemia, ETOH abuse, liver cirrhosis, peripheral neuropathy, chronic back pain, and bipolar disorder who presents to the ED with parents with complaints of possible seizure. Patients mother called the ambulance because she went to check on him downstairs as she noted that he was was acting strange and she noticed that the patient looked like he was out of it. She called her and the patient started to walk upstairs and they state that the patient was seizing while standing up with repetitive protrusion of his tongue and eyes deviated up for 10 minutes. He did not fall at the time, did not have urine incontinence or frothing at the mouth. The patient states that he did not have a seizure he was just not feeling well because she startled him. He reports drinking 10 beers a day and his last drink was 24 hours prior. His parents state that the patient has been drinking vodka, 4 lokos, beer and abuses his prescription drugs (xanax and prozac). No seizures overnight, CT head reviewed and without acute changes. EEG ordered. Multiple issues as described above that can provoke seizure vs pseudoseizure. Detox consult noted, patient wanting to leave and has not been cooperating with care per notes. Active Medications Acetaminophen (Tylenol -) 650 mg PO Q6H PRN PRN Reason: FEVER OR PAIN Last Admin: 01/23/17 23:56 Dose: 650 mg Chlordiazepoxide HCl (Librium -) 25 mg PO TID PRN PRN Reason: ANXIETY Chlordiazepoxide HCl (Librium -) 15 mg PO [id number] [facility] Stop: 01/24/17 23:01 Cyclobenzaprine HCl (Flexeril -) 10 mg PO TID [facility] Docusate Sodium (Colace -) 100 mg PO BID [facility] Last Admin: 01/23/17 21:14 Dose: 100 mg Folic Acid (Folic Acid -) 1 mg PO DAILY [facility] Last Admin: 01/23/17 10:30 Dose: 1 mg Gabapentin (Neurontin -) 600 mg PO TID [facility] Sodium Chloride (Normal Saline -) 1,000 mls @ 75 mls/hr IV ASDIR [facility] Last Admin: 01/23/17 18:09 Dose: 75 mls/hr Levetiracetam (Keppra -) 500 mg PO BID [facility] Last Admin: 01/23/17 21:14 Dose: 500 mg Magnesium Oxide (Mag-Ox -) 400 mg PO DAILY [facility] Last Admin: 01/23/17 10:30 Dose: 400 mg Naproxen (Naprosyn -) 500 mg PO BID [facility] Ondansetron HCl (Zofran -) 8 mg PO Q8H PRN PRN Reason: NAUSEA Pantoprazole Sodium (Protonix -) 40 mg PO DAILY [facility] Last Admin: 01/23/17 10:30 Dose: 40 mg Tamsulosin HCl (Flomax -) 0.4 mg PO DAILY@0830 [facility] Last Admin: 01/23/17 10:30 Dose: 0.4 mg Thiamine HCl (Vitamin B1 -) 100 mg PO DAILY [facility] Last Admin: 01/23/17 10:30 Dose: 100 mg *Physical Exam Vital Signs Period Temp Pulse Resp BP Sys/Sarmiento Pulse Ox Last 24 Hr 97.5 F-98.2 F 66-102 14-21 120-135/68-96 99-99 GENERAL: Awake, alert, and fully oriented, in no acute distress HEAD:+superficial abrasion to L scalp, hemostatic EYES: PERRLA, EOMI, sclera anicteric, conjunctiva clear ENT: Auricles normal inspection, hearing grossly normal, nares patent, oropharynx clear without exudates. Moist mucosa, +swelling on the L tongue consistent with tongue biting. NECK: Normal ROM, supple, no lymphadenopathy, JVD, or masses LUNGS: Breath sounds equal, clear to auscultation bilaterally. No wheezes, and no crackles HEART: tachycardic to 116, regular, normal S1 and S2, no murmurs, rubs or gallops ABDOMEN: Soft, nontender, normoactive bowel sounds. No guarding, no rebound. No masses EXTREMITIES: Normal range of motion, no edema. No clubbing or cyanosis. No cords, erythema, or tenderness NEUROLOGICAL: Cranial nerves II through XII grossly intact. Normal speech, strenght intact, sensory normal, gait deferred SKIN: Warm, Dry, normal turgor, no rashes or lesions noted. CT head reviewed and no acute changes Twelve-lead EKG was performed and reviewed by me. Normal sinus rhythm, rate 98, normal axis. Slightly prolonged QT. No ST elevations or T-wave inversions. CBCD WBC 4.5 K/mm3 (4.0-10.0) D 01/24/17 05:10 RBC 4.48 M/mm3 (4.00-5.60) 01/24/17 05:10 Hgb 14.9 GM/dL (11.7-16.9) 01/24/17 05:10 Hct 44.3 % (35.4-49) 01/24/17 05:10 MCV 98.9 fl (80-96) H 01/24/17 05:10 MCHC 33.8 g/dl (32.0-35.9) 01/24/17 05:10 RDW 14.4 % (11.9-15.9) 01/24/17 05:10 Plt Count 137 K/MM3 (134-434) 01/24/17 05:10 MPV 7.5 fl (7.5-11.1) 01/24/17 05:10 CMP Sodium 140 mmol/L (136-145) 01/24/17 05:10 Potassium 4.0 mmol/L (3.5-5.1) 01/24/17 05:10 Chloride 104 mmol/L (98-107) 01/24/17 05:10 Carbon Dioxide 28 mmol/L (21-32) 01/24/17 05:10 Anion Gap 8 (8-16) 01/24/17 05:10 BUN 6 mg/dL (7-18) L 01/24/17 05:10 Creatinine 0.6 mg/dL (0.7-1.3) L 01/24/17 05:10 Creat Clearance w eGFR > 60 (>60) 01/23/17 05:30 Calcium 8.4 mg/dL (8.5-10.1) L 01/24/17 05:10 Total Bilirubin 3.7 mg/dL (0.2-1.0) H 01/23/17 05:30 AST 41 U/L (15-37) H 01/23/17 05:30 ALT 28 U/L (12-78) 01/23/17 05:30 Alkaline Phosphatase 154 U/L (45-117) H 01/23/17 05:30 Total Protein 7.2 g/dl (6.4-8.2) 01/23/17 05:30 Albumin 3.1 g/dl (3.4-5.0) L 01/23/17 05:30 Plan: 46 year old male with past medical history of seizures, hypertension, hypokalemia, ETOH abuse, liver cirrhosis, peripheral neuropathy, chronic back pain, and bipolar disorder who presents to the ED with parents with complaints of possible seizure. Patients mother called the ambulance because she went to check on him downstairs as she noted that he was was acting strange and she noticed that the patient looked like he was out of it. She called her and the patient started to walk upstairs and they state that the patient was seizing while standing up with repetitive protrusion of his tongue and eyes deviated up for 10 minutes. He did not fall at the time, did not have urine incontinence or frothing at the mouth. The patient states that he did not have a seizure he was just not feeling well because she startled him. He reports drinking 10 beers a day and his last drink was 24 hours prior. His parents state that the patient has been drinking vodka, 4 lokos, beer and abuses his prescription drugs (xanax and prozac). No seizures overnight, CT head reviewed and without acute changes. EEG ordered. Multiple issues as described above that can provoke seizure vs pseudoseizure. Psych, detox consults Continue Keppra 500mg twice daily Monitor for Etoh withdrawal Monitor for Benzo/opiod withdrawal IV/PO fluids, hydrate as needed Seizure precautions
[2017-01-24] MEDS ORDERED: NAPROXEN 500 MG TABLET (FP) PO SCH (10:00)
[2017-01-24] MEDS: TAMSULOSIN HCL 0.4 MG CAP.ER.24H (FP) PO SCH (10:14)
[2017-01-24] MEDS: levETIRAcetam 500 MG TABLET (FP) PO SCH (10:14)
[2017-01-24] MEDS: DOCUSATE SODIUM 100 MG CAPSULE (FP) PO SCH (10:18)
[2017-01-24] MEDS: MAGNESIUM OXIDE 400 MG TABLET (FP) PO SCH (10:18)
[2017-01-24] MEDS: PANTOPRAZOLE 40 MG TABLET (FP) PO SCH (10:18)
[2017-01-24] MEDS: FOLIC ACID 1 MG TABLET (FP) PO SCH (10:18)
[2017-01-24] MEDS: THIAMINE HCL 100 MG TABLET (FP) PO SCH (10:19)
[2017-01-24 10:41] VITALS: PULSE 77
--- NOTE | 2017-01-24 11:29 | DS ---
Physical Examination Vital Signs: Vital Signs Temperature 36.8 C 01/24/17 06:00 Pulse Rate 77 01/24/17 10:41 Respiratory Rate 16 01/24/17 06:00 Blood Pressure 129/82 01/24/17 06:00 O2 Sat by Pulse Oximetry (%) 97 01/24/17 10:41 Constitutional: Yes: Well Nourished, No Distress, Calm Cardiovascular: Yes: Regular Rate and Rhythm. No: Gallop, Murmur, Rub Respiratory: Yes: Regular, CTA Bilaterally. No: Rales, Rhonchi, Wheezes Gastrointestinal: Yes: Normal Bowel Sounds, Soft. No: Distention, Tenderness Extremities: Yes: WNL Edema: No Labs: CBC, BMP 01/24/17 05:10 01/24/17 05:10 Discharge Summary Reason For Visit: SEIZURE Current Active Problems Alcoholic cirrhosis of liver (Acute) BPH (benign prostatic hyperplasia) (Acute) Cholestasis (Acute) Hallucination (Acute) History of cirrhosis of liver (Acute) Seizure (Acute) Hospital Course: (1) Alcohol withdrawal Code(s): F10.239 - ALCOHOL DEPENDENCE WITH WITHDRAWAL, UNSPECIFIED Qualifiers : Complication of substance-induced condition: uncomplicated Qualified Code(s): F10.230 - Alcohol dependence with withdrawal, uncomplicated; F10.230 - Alcohol dependence with withdrawal, uncomplicated; F10.230 - Alcohol dependence with withdrawal, uncomplicated (2) Hallucination Code(s): R44.3 - HALLUCINATIONS, UNSPECIFIED (3) History of cirrhosis of liver Code(s): Z87.19 - PERSONAL HISTORY OF OTHER DISEASES OF THE DIGESTIVE SYSTEM (4) Seizure Code(s): R56.9 - UNSPECIFIED CONVULSIONS (5) BPH (benign prostatic hyperplasia) Code(s): N40.0 - BENIGN PROSTATIC HYPERPLASIA WITHOUT LOWER URINRY TRACT SYMP Mr Blount is a 46 year old male who comes in with seizures secondary to suspected alcohol withdrawal and cessation of his keppra. He was admitted to the hospital and placed on 1:1. He was documented to be having hallucinations, however he denies this to me. He was seen by psychiatry and cleared from 1:1 and also deemed to have capacity to make his own decisions. He was seen by neurology and started back on keppra. He was seen by addiction medicine which he refused. Upon seeing him he was adamant on going home. He did not want a prescription for librium. He is medically stable for discharge. Dr Rush called in prescription for oxycodone, of note only Dr uRsh can prescribe his oxycodone and xanax 42 minutes spent in preparation of this discharge Condition: Stable - Instructions Diet, Activity, Other Instructions: resume previous diet and activity Referrals: Neil Rush MD [Primary Care Provider] - Disposition: HOME - Home Medications Comprehensive Discharge Medication List: Ambulatory Orders Gabapentin [Neurontin -] 600 mg PO TID 05/30/16 Furosemide [Lasix] 40 mg PO DAILY #3 tablet 06/23/16 Alprazolam [Xanax] 2 mg PO TID PRN 07/23/16 Magnesium Oxide [Magnesium] 400 mg PO DAILY 07/23/16 Metaxalone [Skelaxin] 800 mg PO TID 07/23/16 Docusate Sodium [Colace -] 100 mg PO BID #14 capsule 07/24/16 Tamsulosin HCl [Flomax -] 0.4 mg PO DAILY 07/24/16 Folic Acid - 1 mg PO DAILY #30 tablet 01/24/17 Levetiracetam [Keppra -] 500 mg PO BID #60 tablet 01/24/17 Oxycodone HCl 20 mg PO Q6H PRN #120 tablet MDD 80mg 01/24/17 Thiamine HCl [Vitamin B1 -] 100 mg PO DAILY #30 tablet 01/24/17
[2017-01-24 12:34] VITALS: BP 129/55; TEMP 98.1
[2017-01-24] MEDS ORDERED: GABAPENTIN 300 MG CAPSULE (FP) PO SCH (14:00)
[2017-01-24] MEDS ORDERED: CYCLOBENZAPRINE HCL 10 MG TABLET (FP) PO SCH (14:00)
== END 2017-01-24 11:54 | disposition home or self-care (01) | DRG 53 ==
LOC: JER 17:52 → JERBED 20:16 → J4W 01-23 17:35
PROVIDERS: ADMIT Internal Medicine Geriatric Medicine; ATTEND Internal Medicine Geriatric Medicine
DX: G40.89 Other seizures (principal); K70.30 Alcoholic cirrhosis of liver without ascites; G62.9 Polyneuropathy, unspecified; K70.10 Alcoholic hepatitis without ascites; F10.230 Alcohol dependence with withdrawal, uncomplicated; Y90.0 Blood alcohol level of less than 20 mg/100 ml; I10 Essential (primary) hypertension; F31.9 Bipolar disorder, unspecified; S00.01XA Abrasion of scalp, initial encounter; W18.39XA Other fall on same level, initial encounter; Y93.89 Activity, other specified; Y92.038 Other place in apartment as the place of occurrence of the external cause; Y99.8 Other external cause status; G47.30 Sleep apnea, unspecified; M54.5 Low back pain; N40.0 Benign prostatic hyperplasia without lower urinary tract symptoms
CPT/HCPCS: 36415; 70450-TC; 71010-TC; 80048; 80053; 80307; 81003; 81015; 83605; 83690; 83735; 84100; 84443; 84484; 85025; 87086; 93005; 93010; 99285-25

== ENCOUNTER 2017-02-12 10:10 | Emergency (ER) | payer OTHER ==
[2017-02-12 10:21] VITALS: BMI 35.8
[2017-02-12] MEDS ORDERED: diazePAM 5 MG TABLET PO ONE (11:13)
[2017-02-12] MEDS ORDERED: diazePAM 5 MG TABLET ONE (11:28)
--- NOTE | 2017-02-12 11:35 | PDOC ---
History of Present Illness <Jacqui Mulligan - Last Filed: 02/12/17 14:14> - History of Present Illness Initial Comments: 02/12/17 11:28 " 46 year old male, with significant past medical history of seizures, alcohol abuse, liver cirrhosis, peripheral neuropathy, chronic back pain, bipolar disorder, hypertension, and hypokalemia, who presents to the emergency room s/p possible seizure this morning. The patient states that he went outside to get some fresh air and sit by the fire when his aunt witnessed him tremulous on the ground with his tongue protruding from his mouth. He notes that sometimes he is noncompliant with his seizure medications because he is becoming very forgetful. The patient also noticed that his neck was swollen this morning. He reports pain with swallowing. Denies difficulty breathing, denies voice change. Pt was admitted last month for ETOH withdrawal and seizures. He was discharged last week. Pt admits to drinking again after discharge, drinking half a pint of vodka and 6 heinekens a day. However, he states his last drink was approximately 1 week ago. Denies any other substance use. Denies chest pain, SOB, cough. Denies fever, chills, nausea, vomiting. Denies difficulty breathing. Denies headache, changes in vision. Allergies: NKDA Social hx: Alcohol abuse. PCP: Dr. Rush " <Ric Barahona - Last Filed: 02/12/17 22:36> - General Chief Complaint: Seizure Stated Complaint: SEIZURE Time Seen by Provider: 02/12/17 10:44 Past History <Jacqui Mulligan - Last Filed: 02/12/17 14:14> - Past Medical History Anemia: No Asthma: No Cancer: No Cardiac Disorders: No CVA: No COPD: No CHF: No Dementia: No Diabetes: No GI Disorders: No Disorders: No HTN: No Hypercholesterolemia: No Kidney Stones: No Liver Disease: Yes (fatty liver, CIRHOSIS) Seizures: No Thyroid Disease: No - Surgical History Abdominal Surgery: Yes (LAP BAND 2009/umbilical hernia repaired 2013) Appendectomy: No Cardiac Surgery: No Cholecystectomy: No GI Surgery: Yes (hernia repair) Lung Surgery: No Neurologic Surgery: No Orthopedic Surgery: Yes (ARTHROSCOPY LEFT SHOULDER 2011) - Reproductive History Testicular Surgery: No - Immunization History Immunization Up to Date: Yes - Suicide/Smoking/Psychosocial Hx Smoking Status: No Smoking History: Never smoked Have you smoked in the past 12 months: No Number of Cigarettes Smoked Daily: 1 Cigars Per Day: 1 'Breaking Loose' booklet given: 01/23/17 Hx Alcohol Use: Yes (AA, DRANK LAST WEEK) Drug/Substance Use Hx: No Substance Use Type: Prescribed Hx Substance Use Treatment: Yes ([facility] treatment [facility]) <BrooklynRic - Last Filed: 02/12/17 22:36> - Past Medical History Allergies/Adverse Reactions: Allergies Allergy/AdvReac Type Severity Reaction Status Date / Time No Known Allergies Allergy Verified 02/12/17 19:14 Home Medications: Ambulatory Orders Gabapentin [Neurontin -] 600 mg PO TID 05/30/16 Furosemide [Lasix] 40 mg PO DAILY #3 tablet 06/23/16 Alprazolam [Xanax] 2 mg PO TID PRN 07/23/16 Magnesium Oxide [Magnesium] 400 mg PO DAILY 07/23/16 Metaxalone [Skelaxin] 800 mg PO TID 07/23/16 Docusate Sodium [Colace -] 100 mg PO BID #14 capsule 07/24/16 Tamsulosin HCl [Flomax -] 0.4 mg PO DAILY 07/24/16 Folic Acid - 1 mg PO DAILY #30 tablet 01/24/17 Levetiracetam [Keppra -] 500 mg PO BID #60 tablet 01/24/17 Oxycodone HCl 20 mg PO Q6H PRN #120 tablet MDD 80mg 01/24/17 Thiamine HCl [Vitamin B1 -] 100 mg PO DAILY #30 tablet 01/24/17 Review of Systems - Review of Systems Comments:: 02/12/17 11:30 "GENERAL/CONSTITUTIONAL: No fever or chills. No weakness. HEAD, EYES, EARS, NOSE AND THROAT: +swollen neck, +sore throat, No change in vision. No ear pain or discharge. No sore throat. CARDIOVASCULAR: No chest pain or shortness of breath. RESPIRATORY: No cough, wheezing, or hemoptysis. GASTROINTESTINAL: No nausea, vomiting, diarrhea or constipation. GENITOURINARY: No dysuria, frequency, or change in urination. MUSCULOSKELETAL: No joint or muscle swelling or pain. No neck or back pain. SKIN: No rash NEUROLOGIC: +possible seizure. No headache, vertigo,, or change in strength/ sensation. ENDOCRINE: No increased thirst. No abnormal weight change. HEMATOLOGIC/LYMPHATIC: No anemia, easy bleeding, or history of blood clots. ALLERGIC/IMMUNOLOGIC: No hives or skin allergy. " <BrooklynRic - Last Filed: 02/12/17 22:36> *Physical Exam - Vital Signs Last Vital Signs Temp Pulse Resp BP Pulse Ox 98.9 F 125 H 20 132/115 98 02/12/17 10:13 02/12/17 10:13 02/12/17 10:13 02/12/17 10:13 02/12/17 10:13 <Jacqui Mulligan - Last Filed: 02/12/17 14:14> - Vital Signs Last Vital Signs Temp Pulse Resp BP Pulse Ox 98.9 F 125 H 20 132/115 98 02/12/17 10:13 02/12/17 10:13 02/12/17 10:13 02/12/17 10:13 02/12/17 10:13 - Physical Exam Comments: 02/12/17 11:30 """GENERAL: Awake, alert, and fully oriented, in no acute distress HEAD: No signs of trauma EYES: PERRLA, EOMI, sclera anicteric, conjunctiva clear ENT: Neck with large tender lymph nodes, no sublingual masses or abscesses, Auricles normal inspection, hearing grossly normal, nares patent, oropharynx clear without exudates. Moist mucosa NECK: Nontender, no stepoffs, Normal ROM, supple, no lymphadenopathy, JVD, or masses LUNGS: Breath sounds equal, clear to auscultation bilaterally. No wheezes, and no crackles HEART: Regular rate and rhythm, normal S1 and S2, no murmurs, rubs or gallops ABDOMEN: Soft, nontender, normoactive bowel sounds. No guarding, no rebound. No masses EXTREMITIES: Normal range of motion, no edema. No clubbing or cyanosis. No cords, erythema, or tenderness NEUROLOGICAL: Cranial nerves II through XII intact. 5/5 strength and sensation in all extremities, Normal speech, normal gait, no tongue fasciculations, no tremors SKIN: Warm, Dry, normal turgor, no rashes or lesions noted. """ <Ric Barahona - Last Filed: 02/12/17 22:36> ED Treatment Course - LABORATORY CBC & Chemistry Diagram: 02/12/17 11:25 02/12/17 11:25 - ADDITIONAL ORDERS Additional order review: Laboratory Results 02/12/17 02/12/17 02/12/17 12:00 12:00 11:25 Sodium Potassium Chloride Carbon Dioxide Anion Gap BUN Creatinine Creat Clearance w eGFR Random Glucose Lactic Acid 1.4 Calcium Total Bilirubin AST ALT Alkaline Phosphatase Creatine Kinase Troponin I Total Protein Albumin TSH Urine Color Dkyellow Urine Appearance Clear Urine pH 7.0 Ur Specific [place] 1.011 Urine Protein Negative Urine Glucose (UA) Negative Urine Ketones Negative Urine Blood Negative Urine Nitrite Negative Urine Bilirubin Negative Urine Urobilinogen 2.0 Opiates Screen Negative Methadone Screen Negative Barbiturate Screen Negative Phencyclidine Screen Negative Ur Amphetamines Screen Negative MDMA (Ecstasy) Screen Negative Benzodiazepines Screen Positive Cocaine Screen Negative U Marijuana (THC) Screen Negative 02/12/17 11:25 Sodium 135 L Potassium 3.4 L Chloride 103 Carbon Dioxide 25 Anion Gap 7 L BUN 11 D Creatinine 0.9 D Creat Clearance w eGFR > 60 Random Glucose 102 D Lactic Acid Calcium 8.9 Total Bilirubin 2.6 H D AST 47 H ALT 31 Alkaline Phosphatase 268 H D Creatine Kinase Cancelled Troponin I Cancelled Total Protein 8.9 H D Albumin 3.4 TSH 0.75 D Urine Color Urine Appearance Urine pH Ur Specific [place] Urine Protein Urine Glucose (UA) Urine Ketones Urine Blood Urine Nitrite Urine Bilirubin Urine Urobilinogen Opiates Screen Methadone Screen Barbiturate Screen Phencyclidine Screen Ur Amphetamines Screen MDMA (Ecstasy) Screen Benzodiazepines Screen Cocaine Screen U Marijuana (THC) Screen 02/12/17 11:25 RBC 4.91 MCV 97.2 H MCHC 34.2 RDW 13.6 MPV 6.8 L Neutrophils % 64.7 D Lymphocytes % 22.3 D Monocytes % 10.2 Eosinophils % 2.3 Basophils % 0.5 - RADIOLOGY Radiograph Interpretation: 02/12/17 14:14 EXAM#: TYPE/EXAM: RESULT: [id number] CT/SOFT TISSUE NECK CT WITH CONTR IMPRESSION: 1. Enlargement and heterogeneous enhancement of bilateral submandibular glands as described above, compatible with a nonspecific sialoadenitis. No evidence of calculi in the submandibular glands or along the course of the submandibular ducts. This sialoadenitis is of indeterminant etiology, requiring clinical correlation and clinical follow-up to resolution. 2. No drainable collection within the neck. No pathologically enlarged cervical lymph nodes by size criteria. Nonspecific subcentimeter cervical lymph nodes scattered within all [place] stations. 3. Opacified right maxillary sinus with hyperdense contents, likely related to chronic inspissated secretions. Reported By: Alexx Ellison MD 02/12/17 2185 - Medications Given in the ED: ED Medications Discontinued Medications Generic Name Dose Route Start Last Admin Trade Name Freq PRN Reason Stop Dose Admin Diazepam 5 mg 02/12/17 11:13 02/12/17 11:29 Valium - PO 02/12/17 11:14 5 mg ONCE ONE Administration <Jacqui Mulligan - Last Filed: 02/12/17 14:14> - LABORATORY CBC & Chemistry Diagram: 02/12/17 11:25 02/12/17 11:25 - RADIOLOGY Radiology Studies Ordered: Category Date Time Status HEAD CT WITHOUT CONTRAST [CT] Stat CT Scan 02/12/17 11:02 Ordered SOFT TISSUE NECK CT WITH CONTR [CT] Stat CT Scan 02/12/17 11:04 Ordered CHEST PA & LAT [RAD] Stat Radiology 02/12/17 11:02 Ordered <Ric Barahona - Last Filed: 02/12/17 22:36> Medical Decision Making - Medical Decision Making 02/12/17 11:37 46 M with seizure disorder presenting with breakthrough seizure. Likely 2/2 med noncompliance as pt admits to being forgetful with meds. Also consider ETOH or benzo withdrawal seizures as pt was recently admitted for same. However, pt states that he has not had a drink for a week. Unclear if this history is reliable, but pt does not appear to have any clinical signs of ETOH withdrawal. Seizure may also have been precipitated by infectious process, as pt with swollen lymph nodes in neck. - Labs - CXR, UA - CTH given unwitnessed fall during seizure - CT neck w/ IV contrast to r/o abscess, TSH 02/12/17 14:32 CT neck shows nonspecific sialoadenitis of submandibular glands. I spoke with radiologist Dr. Mcgee who does not see any evidence of ravindra's angina. Pt clinically has no evidence of deep neck infection. No airway compromise, managing secretions well. Labs notable for elevated bili, but pt with no jaundice, no abdominal pain. CTH unremarkable. Pt with no evidence of infectious process on labs or imaging. Pt reassessed - continues to feel well with no complaints. Pt instructed to take his meds as prescribed. Will ask his mother for assistance. Pt to go directly to Dr. Rush's (PMD) office after discharge for assessment of his medication regimen. <Ric Barahona - Last Filed: 02/12/17 22:36> *DC/Admit/Observation/Transfer <Jacqui Mulligan - Last Filed: 02/12/17 14:14> - Attestations Physician Attestion: 02/12/17 14:50 I, Dr. Ric Barahona MD, attest that this document has been prepared under my direction and personally reviewed by me in its entirety. I further attest, that it accurately reflects all work, treatment, procedures and medical decision -making performed by me. <Ric Barahona - Last Filed: 02/12/17 22:36> Diagnosis at time of Disposition: Seizure - Discharge Dispostion Disposition: HOME - Referrals Referrals: Neil Rush MD [Primary Care Provider] - - Patient Instructions Printed Discharge Instructions: DI for Seizure Disorder -- Adult Additional Instructions: Please go directly to Dr. Rush's office to have your medications reviewed. You must be sure to take all your medications as prescribed. Missed doses can lead to more seizures in the future. If you experience worsening pain, fevers, more seizures, or any other concerning symptoms, return to the ER immediately.
[2017-02-12 11:49] LABS: BASOPHIL 0.5 % (0-2.0); EOSINOPHIL 2.3 % (0-4.5); MCH 33.3 pg (25.7-33.7); MCHC 34.2 g/dl (32.0-35.9); MEAN CELL VOLUME 97.2 fl (80-96); MEAN PLT VOLUME 6.8 fl (7.5-11.1); NEUTROPHILS 64.7 % (42.8-82.8); PLATELET COUNT 197 K/MM3 (134-434); RDW 13.6 % (11.9-15.9)
[2017-02-12 12:00] LABS: ALBUMIN 3.4 g/dl (3.4-5.0); ANION GAP 7 (8-16); CALCIUM 8.9 mg/dL (8.5-10.1); CO2 25 mmol/L (21-32); CREATININE 0.9 mg/dL (0.7-1.3); GLUCOSE,RANDOM 102 mg/dL (74-106); SGOT/AST 47 U/L (15-37); SGPT/ALT 31 U/L (12-78)
[2017-02-12] MEDS ORDERED: oxyCODONE HCL 5 MG TABLET PO ONE ×2 (12:01→12:03)
[2017-02-12 12:02] LABS: ALK PHOS 268 U/L (45-117); BILIRUBIN,TOTAL 2.6 mg/dL (0.2-1.0); TOT PROT 8.9 g/dl (6.4-8.2)
[2017-02-12 12:15] LABS: URINE APPEARANCE CLEAR; URINE BILIRUBIN NEGATIVE (NEGATIVE); URINE BLOOD NEGATIVE (NEGATIVE); URINE COLOR DKYELLOW; URINE GLUCOSE (UA) NEGATIVE (NEGATIVE); URINE KETONE NEGATIVE (NEGATIVE); URINE NITRITE NEGATIVE (NEGATIVE); URINE PROTEIN NEGATIVE (NEGATIVE)
[2017-02-12 12:42] LABS: URINE MARIJUANA THC NEGATIVE ng/ml (CUTOFF=50)
[2017-02-12 12:44] LABS: THYROID STIMULATING HORMONE 0.75 uIU/ml (0.358-3.74)
[2017-02-12 14:20] LABS: URINE LEUK ESTERASE Negative (NEGATIVE)
[2017-02-12] MEDS ORDERED: levETIRAcetam 500 MG TABLET (FP) PO ONE ×2 (15:03)
[2017-02-12 15:06] VITALS: BP 109/66; PULSE 86; TEMP 98
--- NOTE | 2017-02-13 17:07 | EKG ---
Test Reason : Blood Pressure : / mmHG Vent. Rate : 109 BPM Atrial Rate : 109 BPM P-R Int : 142 ms QRS Dur : 090 ms QT Int : 368 ms P-R-T Axes : 056 047 047 degrees QTc Int : 495 ms SINUS TACHYCARDIA OTHERWISE NORMAL ECG WHEN COMPARED WITH ECG OF 22-JAN-2017 21:31, NO SIGNIFICANT CHANGE WAS FOUND Confirmed by JOHN KAHN MD ([id number]) on 02/13/2017 5:07:07 PM Referred By: Confirmed By:JOHN KAHN MD
== END 2017-02-12 15:00 | disposition home or self-care (01) ==
LOC: JER 10:10
DX: R56.9 Unspecified convulsions (principal); K74.60 Unspecified cirrhosis of liver
CPT/HCPCS: 36415; 70450-TC; 70491-TC; 71020-TC; 80053; 80307; 81003; 83605; 84443; 85025; 93005; 93010; 99282-25

== ENCOUNTER 2017-02-12 18:46 | Emergency (ER) | payer OTHER ==
[2017-02-12 19:19] VITALS: TEMP 98.8; BMI 38.6
--- NOTE | 2017-02-12 19:33 | PDOC ---
Rapid Medical Evaluation Chief Complaint: Pain Time Seen by Provider: 02/12/17 19:25 Medical Evaluation: Allergies Allergy/AdvReac Type Severity Reaction Status Date / Time No Known Allergies Allergy Verified 02/12/17 19:14 Vital Signs Temp Pulse Resp BP Pulse Ox 98.8 F 115 H 20 143/104 98 02/12/17 19:15 02/12/17 19:15 02/12/17 19:15 02/12/17 19:15 02/12/17 19:15 02/12/17 19:29 I have performed a brief evaluation of this patient. The patient presents with a chief complaint of right hand pain s/p punching a brick wall 4 times.. Pertinent exam findings are: laceration to right 4th digit with localized swelling to site of laceration. Unknown last Td. I have ordered the following: Xray of right hand. Percocet 5/325 x1 tablet. Boostrix 0.5cc IM
[2017-02-12] MEDS ORDERED: DIPHTH,PERTUSS(ACELL),TET 0.5 ML DISP.SYRIN IM ONE (19:37)
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
--- NOTE | 2017-02-12 23:01 | PDOC ---
*Physical Exam - Vital Signs Last Vital Signs Temp Pulse Resp BP Pulse Ox 98.8 F 115 H 20 143/104 98 02/12/17 19:15 02/12/17 19:15 02/12/17 19:15 02/12/17 19:15 02/12/17 19:15 ED Treatment Course - Medications Given in the ED: ED Medications Discontinued Medications Generic Name Dose Route Start Last Admin Trade Name Freq PRN Reason Stop Dose Admin Oxycodone/Acetaminophen 1 combo 02/12/17 19:28 02/12/17 22:27 Percocet 5/325 - PO 02/12/17 19:29 Not Given ONCE ONE Medical Decision Making - Medical Decision Making 02/12/17 23:00 agree with care from RAVEN Tejeda *DC/Admit/Observation/Transfer Diagnosis at time of Disposition: Hand pain, right - Discharge Dispostion Disposition: HOME - Referrals Referrals: Neil Kang MD [Staff Physician] - Neil Rush MD [Primary Care Provider] - - Patient Instructions Additional Instructions: Take Motrin or Tylenol as needed for pain. Follow manufacturers instructions for dosage. Place ice on hand for no more than 20 minutes at a time. Remove ice for a minimum of 20 minutes before replacing anymore ice. You've been given a referral from orthopedist. If symptoms do not resolve within the next week contact orthopedist for an appointment. Return to emergency department for worsening pain, swelling, inability to move hand, loss of strength, or any other concerns. Thank you very much for choosing us to provide your emergent healthcare needs.
[2017-02-12 23:38] VITALS: BP 144/106; PULSE 112
== END 2017-02-12 23:38 | disposition home or self-care (01) ==
LOC: JER 18:46
PROC: 3E0234Z Introduction of Serum, Toxoid and Vaccine into Muscle, Percutaneous Approach (ICD-10-PCS; principal; 2017-02-12)
DX: M79.641 Pain in right hand (principal); W22.01XA Walked into wall, initial encounter; Y93.89 Activity, other specified; Y92.009 Unspecified place in unspecified non-institutional (private) residence as the place of occurrence of the external cause; G89.29 Other chronic pain; F31.9 Bipolar disorder, unspecified; I10 Essential (primary) hypertension
CPT/HCPCS: 73130-TC-RT; 90715; 99281-25

== ENCOUNTER 2017-03-24 19:29 | Inpatient (IN) | payer OTHER ==
--- NOTE | 2017-03-24 19:40 | PDOC ---
Rapid Medical Evaluation Chief Complaint: Edema Time Seen by Provider: 03/24/17 19:31 Medical Evaluation: Allergies Allergy/AdvReac Type Severity Reaction Status Date / Time No Known Allergies Allergy Verified 02/12/17 19:14 03/24/17 19:34 The patient presents with a chief complaint of: b/l lower extremity swelling and shortness of breath with activity x 1 day. denies recently travel. cough, reports drinking 6 pack of beer prior to arrival. I have performed a brief in-person evaluation of this patient; Pertinent physical exam findings: patient alert ox3. occasionally sleepy, breath sounds clear, b/l lower extremity pitting edema History of alcoholism , Liver Cirrhosis, I have ordered the following: cbc, CMP, LFTS, BNP, EKG, chest xray The patient will proceed to the ED for further evaluation. 03/24/17 19:40
[2017-03-24 20:32] LABS: BASOPHIL 0.6 % (0-2.0); EOSINOPHIL 3.9 % (0-4.5); MCH 33.8 pg (25.7-33.7); MEAN CELL VOLUME 99.5 fl (80-96); MEAN PLT VOLUME 7.2 fl (7.5-11.1); PLATELET COUNT 165 K/MM3 (134-434); RDW 14.4 % (11.9-15.9); WHITE BLOOD COUNT 9.6 K/mm3 (4.0-10.0)
[2017-03-24 20:35] LABS: URINE APPEARANCE CLEAR; URINE BILIRUBIN NEGATIVE (NEGATIVE); URINE BLOOD NEGATIVE (NEGATIVE); URINE COLOR LTYELLOW; URINE GLUCOSE (UA) NEGATIVE (NEGATIVE); URINE KETONE NEGATIVE (NEGATIVE); URINE LEUK ESTERASE NEGATIVE (NEGATIVE); URINE NITRITE NEGATIVE (NEGATIVE); URINE PROTEIN NEGATIVE (NEGATIVE); URINE UROBILINOGEN 4.0 E.U/dl mg/dL (0.2-1.0)
[2017-03-24 20:47] LABS: INR 1.13 (0.82-1.09); PROTHROMBIN TIME (PATIENT) 12.8 SEC (9.98-11.88)
[2017-03-24 20:48] LABS: ALBUMIN 3.1 g/dl (3.4-5.0); ANION GAP 4 (8-16); CALCIUM 7.9 mg/dL (8.5-10.1); CO2 32 mmol/L (21-32); CREATININE 0.7 mg/dL (0.7-1.3); GLUCOSE,RANDOM 100 mg/dL (74-106); SGOT/AST 48 U/L (15-37); SGPT/ALT 32 U/L (12-78)
[2017-03-24 20:52] LABS: ALK PHOS 209 U/L (45-117); BILIRUBIN,TOTAL 0.9 mg/dL (0.2-1.0); CPK 248 IU/L (39-308); TOT PROT 7.5 g/dl (6.4-8.2); TROPONIN I < 0.02 ng/ml (0.00-0.05)
[2017-03-24 20:59] LABS: URINE MARIJUANA THC NEGATIVE ng/ml (CUTOFF=50)
--- NOTE | 2017-03-24 21:34 | PDOC ---
Attending Attestation - HPI HPI: 03/25/17 00:25 46 M with a significant past medical history of seizures, ETOH abuse, liver cirrhosis, peripheral neuropathy, HTN, bipolar disorder, hypokalemia, and chronic back pain, who presents to the emergency department with BLE swelling, redness, and warmth up to the knee for 4 days, accompanied by intermittent SOB. Pt denies CP, JOYCE, and dizziness. Pt denies F/C, n/v/d. Pt denies dysuria, frequency, urgency and hematuria. <Lesly Bartlett - Last Filed: 03/25/17 00:25> - Resident Resident Name: HernanstaceyPacoElliott - ED Attending Attestation I have performed the following: I have examined & evaluated the patient, The case was reviewed & discussed with the resident, I agree w/resident's findings & plan, Exceptions are as noted - Physicial Exam PE: GENERAL: Awake, alert, and fully oriented, in no acute distress HEAD: No signs of trauma EYES: PERRLA, EOMI, sclera anicteric, conjunctiva clear ENT: Auricles normal inspection, hearing grossly normal, nares patent, oropharynx clear without exudates. Moist mucosa NECK: Normal ROM, supple, no lymphadenopathy, JVD, or masses LUNGS: Breath sounds equal, clear to auscultation bilaterally. No wheezes, and no crackles HEART: Regular rate and rhythm, normal S1 and S2, no murmurs, rubs or gallops ABDOMEN: Soft, nontender, normoactive bowel sounds. No guarding, no rebound. No masses EXTREMITIES: Normal range of motion. 3+ pitting edema to BLE with erythema. No clubbing or cyanosis. No calf tenderness. NEUROLOGICAL: Cranial nerves II through XII grossly intact. Normal speech, normal gait SKIN: Warm, Dry, normal turgor, no rashes or lesions noted. - Medical Decision Making Exam suspicious for BLE cellulitis- legs are warm, erythematous, and edematous. Will obtain XR to r/o subcutaneous gas, dopplers to r/o DVT. Plan for admission for abx. <Marah Gallardo - Last Filed: 03/25/17 00:27>
--- NOTE | 2017-03-24 21:53 | PDOC ---
History of Present Illness - General Chief Complaint: Edema Stated Complaint: SWOLLEN ANKLES Time Seen by Provider: 03/24/17 19:31 - History of Present Illness Initial Comments: 03/24/17 21:52 Mr. Blount is a 46 yo male w/ pmh of seizures, alcohol abuse, liver cirrhosis , peripheral neuropathy, chronic back pain, bipolar disorder, HTN, and hypokalemia who presents complaining of a 3-4 day history of severe bilateral leg swelling below the knee w/ associated redness and swelling. He had chills last night and is currently experiencing a lot of anxiety. He further reports that he has had associated difficulty urinating over the last 3-4 months and has to strain to urinate. Past History - Past Medical History Allergies/Adverse Reactions: Allergies Allergy/AdvReac Type Severity Reaction Status Date / Time No Known Allergies Allergy Verified 03/24/17 19:37 Home Medications: Ambulatory Orders Gabapentin [Neurontin -] 600 mg PO TID 05/30/16 Furosemide [Lasix] 40 mg PO DAILY #3 tablet 06/23/16 Alprazolam [Xanax] 2 mg PO TID PRN 07/23/16 Magnesium Oxide [Magnesium] 400 mg PO DAILY 07/23/16 Metaxalone [Skelaxin] 800 mg PO TID 07/23/16 Docusate Sodium [Colace -] 100 mg PO BID #14 capsule 07/24/16 Tamsulosin HCl [Flomax -] 0.4 mg PO DAILY 07/24/16 Folic Acid - 1 mg PO DAILY #30 tablet 01/24/17 Levetiracetam [Keppra -] 500 mg PO BID #60 tablet 01/24/17 Oxycodone HCl 20 mg PO Q6H PRN #120 tablet MDD 80mg 01/24/17 Thiamine HCl [Vitamin B1 -] 100 mg PO DAILY #30 tablet 01/24/17 Anemia: No Asthma: No Cancer: No Cardiac Disorders: No CVA: No COPD: No CHF: No Dementia: No Diabetes: No GI Disorders: No Disorders: No HTN: No Hypercholesterolemia: No Kidney Stones: No Liver Disease: Yes (fatty liver, CIRHOSIS) Psychiatric Problems: Yes Seizures: No Thyroid Disease: No - Surgical History Abdominal Surgery: Yes (LAP BAND 2009/umbilical hernia repaired 2013) Appendectomy: No Cardiac Surgery: No Cholecystectomy: No GI Surgery: Yes (hernia repair) Lung Surgery: No Neurologic Surgery: No Orthopedic Surgery: Yes (ARTHROSCOPY LEFT SHOULDER 2012) - Reproductive History Testicular Surgery: No - Immunization History Immunization Up to Date: Yes - Suicide/Smoking/Psychosocial Hx Smoking Status: No Smoking History: Never smoked Have you smoked in the past 12 months: No Number of Cigarettes Smoked Daily: 1 Cigars Per Day: 1 'Breaking Loose' booklet given: 01/23/17 Hx Alcohol Use: Yes Drug/Substance Use Hx: No Substance Use Type: None, Prescribed Hx Substance Use Treatment: Yes ([facility] treatment program) *Physical Exam - Vital Signs Last Vital Signs Temp Pulse Resp BP Pulse Ox 97.7 F 99 H 18 107/54 99 03/24/17 19:33 03/24/17 19:33 03/24/17 19:33 03/24/17 19:33 03/24/17 19:33 ED Treatment Course - LABORATORY CBC & Chemistry Diagram: 03/24/17 20:20 03/24/17 20:11 - ADDITIONAL ORDERS Additional order review: Laboratory Results 03/24/17 03/24/17 03/24/17 20:20 20:20 20:20 PT with INR 12.80 H INR 1.13 D Sodium Potassium Chloride Carbon Dioxide Anion Gap BUN Creatinine Creat Clearance w eGFR Random Glucose Calcium Magnesium Total Bilirubin AST ALT Alkaline Phosphatase Ammonia Creatine Kinase Creatine Kinase Index CK-MB (CK-2) Troponin I B-Natriuretic Peptide Total Protein Albumin Urine Color Ltyellow Urine Appearance Clear Urine pH 6.0 Ur Specific [place] 1.004 Urine Protein Negative Urine Glucose (UA) Negative Urine Ketones Negative Urine Blood Negative Urine Nitrite Negative Urine Bilirubin Negative Urine Urobilinogen 4.0 e.u/dl Opiates Screen Positive Methadone Screen Negative Barbiturate Screen Negative Phencyclidine Screen Negative Ur Amphetamines Screen Negative MDMA (Ecstasy) Screen Negative Benzodiazepines Screen Negative Cocaine Screen Negative U Marijuana (THC) Screen Negative Alcohol, Quantitative 03/24/17 03/24/17 03/24/17 20:11 20:11 20:11 PT with INR INR Sodium 133 L Potassium 4.1 D Chloride 97 L Carbon Dioxide 32 D Anion Gap 4 L BUN 8 D Creatinine 0.7 D Creat Clearance w eGFR > 60 Random Glucose 100 Calcium 7.9 L Magnesium 2.0 Total Bilirubin 0.9 D AST 48 H ALT 32 Alkaline Phosphatase 209 H D Ammonia 66.40 H Creatine Kinase 248 Creatine Kinase Index 3.3 CK-MB (CK-2) 8.416 H Troponin I < 0.02 B-Natriuretic Peptide 19.57 Total Protein 7.5 Albumin 3.1 L Urine Color Urine Appearance Urine pH Ur Specific [place] Urine Protein Urine Glucose (UA) Urine Ketones Urine Blood Urine Nitrite Urine Bilirubin Urine Urobilinogen Opiates Screen Methadone Screen Barbiturate Screen Phencyclidine Screen Ur Amphetamines Screen MDMA (Ecstasy) Screen Benzodiazepines Screen Cocaine Screen U Marijuana (THC) Screen Alcohol, Quantitative 114.5 H* 03/24/17 20:20 RBC 4.03 MCV 99.5 H MCHC 34.0 RDW 14.4 MPV 7.2 L Neutrophils % 54.0 Lymphocytes % 24.4 Monocytes % 17.1 H Eosinophils % 3.9 Basophils % 0.6 Medical Decision Making - Medical Decision Making 03/24/17 22:53 Mr. Blount is a 46 yo male presenting w/ symptoms concerning for DVT vs. cellultiic process. Bilateral XR negative for acute pathology. 03/24/17 23:37 Bilateral duplex US ordered for DVT evaluation. 1.5g vanc given for presumptimve cellulitis treatment. 03/24/17 23:49 Patient signed out to Dr. Holt for further care. *DC/Admit/Observation/Transfer Diagnosis at time of Disposition: Cellulitis Qualifiers: Site of cellulitis: other site Qualified Code(s): L03.818 - Cellulitis of other sites - Referrals Referrals: Neil Rush MD [Primary Care Provider] - - Patient Instructions - Post Discharge Activity
[2017-03-24] MEDS ORDERED: VANCOMYCIN 1,500 MG in DEXTROSE 5%-WATER - 500 ML IVPB ONE (22:11)
[2017-03-24 23:05] LABS: URINE LEUK ESTERASE TRACE (NEGATIVE)
--- NOTE | 2017-03-24 23:52 | PDOC ---
*Physical Exam - Vital Signs Last Vital Signs Temp Pulse Resp BP Pulse Ox 97.7 F 99 H 18 107/54 99 03/24/17 19:33 03/24/17 19:33 03/24/17 19:33 03/24/17 19:33 03/24/17 19:33 - Physical Exam Comments: 03/24/17 23:55 GENERAL: Awake, alert, and fully oriented, in no acute distress HEAD: No signs of trauma, normocephalic, atraumatic EYES: PERRLA, EOMI, sclera anicteric, conjunctiva clear ENT: Auricles normal inspection, hearing grossly normal, nares patent, oropharynx clear without exudates. Moist mucosa NECK: Normal ROM, supple, no lymphadenopathy, JVD, or masses LUNGS: No distress, speaks full sentences, clear to auscultation bilaterally HEART: Regular rate and rhythm, normal S1 and S2, no murmurs, rubs or gallops, peripheral pulses normal and equal bilaterally. ABDOMEN: Soft, nontender, normoactive bowel sounds. No guarding, no rebound. No masses EXTREMITIES : Normal inspection, Normal range of motion, no edema. No clubbing or cyanosis. NEUROLOGICAL: Cranial nerves II through XII grossly intact. Normal speech, normal gait, no focal sensorimotor deficits SKIN: Warm, Dry, normal turgor, no rashes or lesions noted. ED Treatment Course - LABORATORY CBC & Chemistry Diagram: 03/24/17 20:20 03/24/17 20:11 - ADDITIONAL ORDERS Additional order review: Laboratory Results 03/24/17 03/24/17 03/24/17 20:20 20:20 20:20 PT with INR 12.80 H INR 1.13 D Sodium Potassium Chloride Carbon Dioxide Anion Gap BUN Creatinine Creat Clearance w eGFR Random Glucose Calcium Magnesium Total Bilirubin AST ALT Alkaline Phosphatase Ammonia Creatine Kinase Creatine Kinase Index CK-MB (CK-2) Troponin I B-Natriuretic Peptide Total Protein Albumin Urine Color Ltyellow Urine Appearance Clear Urine pH 6.0 Ur Specific [place] 1.004 Urine Protein Negative Urine Glucose (UA) Negative Urine Ketones Negative Urine Blood Negative Urine Nitrite Negative Urine Bilirubin Negative Urine Urobilinogen 4.0 e.u/dl Ur Leukocyte Esterase Trace H Opiates Screen Positive Methadone Screen Negative Barbiturate Screen Negative Phencyclidine Screen Negative Ur Amphetamines Screen Negative MDMA (Ecstasy) Screen Negative Benzodiazepines Screen Negative Cocaine Screen Negative U Marijuana (THC) Screen Negative Alcohol, Quantitative 03/24/17 03/24/17 03/24/17 20:11 20:11 20:11 PT with INR INR Sodium 133 L Potassium 4.1 D Chloride 97 L Carbon Dioxide 32 D Anion Gap 4 L BUN 8 D Creatinine 0.7 D Creat Clearance w eGFR > 60 Random Glucose 100 Calcium 7.9 L Magnesium 2.0 Total Bilirubin 0.9 D AST 48 H ALT 32 Alkaline Phosphatase 209 H D Ammonia 66.40 H Creatine Kinase 248 Creatine Kinase Index 3.3 CK-MB (CK-2) 8.416 H Troponin I < 0.02 B-Natriuretic Peptide 19.57 Total Protein 7.5 Albumin 3.1 L Urine Color Urine Appearance Urine pH Ur Specific [place] Urine Protein Urine Glucose (UA) Urine Ketones Urine Blood Urine Nitrite Urine Bilirubin Urine Urobilinogen Ur Leukocyte Esterase Opiates Screen Methadone Screen Barbiturate Screen Phencyclidine Screen Ur Amphetamines Screen MDMA (Ecstasy) Screen Benzodiazepines Screen Cocaine Screen U Marijuana (THC) Screen Alcohol, Quantitative 114.5 H* 03/24/17 20:20 RBC 4.03 MCV 99.5 H MCHC 34.0 RDW 14.4 MPV 7.2 L Neutrophils % 54.0 Lymphocytes % 24.4 Monocytes % 17.1 H Eosinophils % 3.9 Basophils % 0.6 Medical Decision Making - Medical Decision Making 03/24/17 23:[address] Zamarripa 46 yo male w/ pmh of seizures, alcohol abuse, liver cirrhosis, peripheral neuropathy, chronic back pain, bipolar disorder, HTN, and hypokalemia who 3 days BL LE BTK swelling and redness. There is suspicion of DVT vs.Cellulitis. Bilateral duplex US Pending. Pt. received 1.5g vanc given for presumptimve cellulitis. ED Course: 03/25/17 01:54 Tibia/fibula RAD: Absent evidence of frx. 03/25/17 03:37 BL LE U/S: No evidence of a left or right LE DVT. Will admit to Dr. patel inpatient med/sug. *DC/Admit/Observation/Transfer Diagnosis at time of Disposition: Cellulitis Qualifiers: Site of cellulitis: other site Qualified Code(s): L03.818 - Cellulitis of other sites - Referrals Referrals: Neil Rush MD [Primary Care Provider] - - Patient Instructions - Post Discharge Activity
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
[2017-03-25] MEDS ORDERED: LACTULOSE 20 GM/30 ML UDC (FOR ORAL USE ONLY) PO ONE (04:00)
[2017-03-25] MEDS ORDERED: LACTULOSE 20 GM/30 ML UDC (FOR ORAL USE ONLY) ONE (04:12)
[2017-03-25] MEDS ORDERED: HEPARIN NA (PORCINE) 5,000 UNITS/ML 1ML VIAL ONE (04:12)
[2017-03-25] MEDS: HEPARIN NA (PORCINE) 5,000 UNITS/ML 1ML VIAL SQ SCH ×3 (05:18→22:32)
[2017-03-25] MEDS ORDERED: CYCLOBENZAPRINE HCL 10 MG TABLET (FP) ONE (06:02)
[2017-03-25] MEDS ORDERED: GABAPENTIN 100 MG CAPSULE (FP) ONE (06:03)
[2017-03-25 06:37] LABS: BASOPHIL 0.5 % (0-2.0); EOSINOPHIL 3.4 % (0-4.5); MCH 34.4 pg (25.7-33.7); MCHC 34.4 g/dl (32.0-35.9); MEAN CELL VOLUME 100.2 fl (80-96); MEAN PLT VOLUME 7.6 fl (7.5-11.1); NEUTROPHILS 62.9 % (42.8-82.8); PLATELET COUNT 169 K/MM3 (134-434); RDW 14.2 % (11.9-15.9)
[2017-03-25 06:49] LABS: ANION GAP 8 (8-16); CALCIUM 7.5 mg/dL (8.5-10.1); CO2 27 mmol/L (21-32); CREATININE 0.5 mg/dL (0.7-1.3); GLUCOSE,RANDOM 116 mg/dL (74-106)
[2017-03-25] MEDS ORDERED: chlordiazePOXIDE HCL 25 MG CAPSULE PO PRN ×2 (06:49→10:25)
[2017-03-25] MEDS: GABAPENTIN 300 MG CAPSULE (FP) PO SCH ×3 (06:49→22:32)
[2017-03-25] MEDS: CYCLOBENZAPRINE HCL 10 MG TABLET (FP) PO SCH ×3 (06:49→22:34)
[2017-03-25] MEDS ORDERED: oxyCODONE HCL 5 MG TABLET ONE (08:38)
[2017-03-25] MEDS: oxyCODONE HCL 5 MG TABLET PO PRN ×3 (08:40→22:33)
[2017-03-25] MEDS: TAMSULOSIN HCL 0.4 MG CAP.ER.24H (FP) PO SCH (08:41)
[2017-03-25] MEDS ORDERED: THIAMINE HCL 100 MG TABLET (FP) PO SCH (10:00)
[2017-03-25] MEDS ORDERED: VANCOMYCIN 1,000 MG in DEXTROSE 5%-WATER - 250 ML IVPB SCH (10:00)
[2017-03-25] MEDS: levETIRAcetam 500 MG TABLET (FP) PO SCH ×2 (10:24→22:34)
[2017-03-25] MEDS: FUROSEMIDE 40 MG TABLET (FP) PO SCH (10:24)
[2017-03-25] MEDS: FOLIC ACID 1 MG TABLET (FP) PO SCH (10:24)
--- NOTE | 2017-03-25 10:24 | CONSULT ---
Consult Detox [facility] Reason for Current Admission/Consult: substance use Referred by:: martha Hanley MD - History History of Present Illness: 46 y.o. m w h/o severe alcohol use disorder, multiple admissions fro inpatient detoxification from alcohol, has had alcohol withdrawal seizures in past now admitted with bilateral le cellultitis x4 days on iv antibiotics requiring inpatient medically supervised detox while hosptialized? PMHX alcoholic liver cirrhosis?, alcohol withdrawal seizures, obesity s/p bariatric surgery, and sleep apnea. denies heroin use alothough urine tox is +ve for opiates . he uses oxycodone for pain prescribed by PCP. 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 (questionable vs pseudoseizures ) Cardio/Vascular: Yes: HTN Pulmonary: Yes: Sleep Apnea Hepatobiliary: Yes: Cirrhosis Psych: Yes: Addictions (alcohol) Musculoskeletal: Yes: Chronic low back pain - Past Surgical History Past Surgical History: Yes: Arthrosocopy (left shoulder, right knee), Bariatric Surgery (gastric band) - Significant Medical Findings: 46 yo m with multiple medical comorbidities admitted with bilateral le cellulits for iv antibioits requiring inpateint medically supervised detox from alcohol, has h/o alcohol withdrawal seizures recently when he went cold turkey/ On probation at work for alcohol use. CIWA Score - CIWA Score Nausea/Vomitin-Mild Nausea/No Vomiting Muscle Tremors: 1-None Visible, but [place] Anxiety: 3 Agitation: 3 Paroxysmal Sweats: No Perspiration Orientation: 0-Oriented Tacttile Disturbances: 0-None Auditory Disturbances: 0-None Visual Disturbances: 0-None Headache: 0-None Present CIWA-Ar Total Score: 8 Assessment Plan - Diagnosis (1) Obesity Status: Acute (2) Cellulitis Status: Acute Qualifiers: Site of cellulitis: other site Qualified Code(s): L03.818 - Cellulitis of other sites (3) Alcohol dependence with uncomplicated withdrawal Status: Acute (4) Neuropathy Status: Acute Comment: isabella torres (5) Seizure Status: Acute - Plan Plan: alcohol dependence with withdrawal sx, at risk of complicated withdrawal because of past history of seizures and multiple medical comorbidities. libirum detox ordered, fluids, mvi/ vitamins and thimaine ordered, ambien for sleep, elevate legs, antibiotics for cellulits, naprsyn bid for pain, patient is at risk of misusing oxycodoen as an outpatient with h/o alcoholism would not give prescription, use while hopsitalized as needed, refer to [facility] for rehab when medically stable and inpatient detox completed. Trev Box MD [phone] - Medication Detox Regimen/Protocol: Librium
[2017-03-25] MEDS ORDERED: METHADONE HCL 10 MG TABLET (FOR DETOX USE ONLY) PO ONE ×2 (10:25→23:00)
[2017-03-25] MEDS ORDERED: chlordiazePOXIDE HCL 25 MG CAPSULE PO ONE (10:25)
--- NOTE | 2017-03-25 10:38 | PN ---
Progress Note, Physician Chief Complaint: Mr Blount denies cp, sob, n/v. With chronic neuropathy pain that is unchanged. Says his legs are swollen and warm but feeling better. - Current Medication List Current Medications: Active Medications Chlordiazepoxide HCl (Librium -) 50 mg PO [id number] [facility] Stop: 03/26/17 05:01 Chlordiazepoxide HCl (Librium -) 25 mg PO [id number] [facility] Stop: 03/27/17 05:01 Chlordiazepoxide HCl (Librium -) 15 mg PO [id number] [facility] Stop: 03/28/17 05:01 Chlordiazepoxide HCl (Librium -) 25 mg PO Q4H PRN PRN Reason: WITHDRAWAL(CONT SUBST) Stop: 03/28/17 10:25 Chlordiazepoxide HCl (Librium -) 50 mg PO ONCE ONE Stop: 03/25/17 10:26 Cyclobenzaprine HCl (Flexeril -) 10 mg PO TID [facility] Last Admin: 03/25/17 06:49 Dose: 10 mg Folic Acid (Folic Acid -) 1 mg PO DAILY [facility] Last Admin: 03/25/17 10:24 Dose: 1 mg Furosemide (Lasix -) 40 mg PO DAILY [facility] Last Admin: 03/25/17 10:24 Dose: 40 mg Gabapentin (Neurontin -) 600 mg PO TID [facility] Last Admin: 03/25/17 06:49 Dose: 600 mg Heparin Sodium (Porcine) (Heparin -) 5,000 unit SQ TID [facility] Last Admin: 03/25/17 05:18 Dose: 5,000 unit Vancomycin HCl 1,000 mg/ (Dextrose) 250 mls @ 200 mls/hr IVPB Q12H [facility] Levetiracetam (Keppra -) 500 mg PO BID [facility] Last Admin: 03/25/17 10:24 Dose: 500 mg Methadone HCl (Dolophine -) 10 mg PO ONCE ONE Stop: 03/25/17 10:26 Last Admin: 03/25/17 10:34 Dose: Not Given Methadone HCl (Dolophine -) 10 mg PO ONCE@2300 ONE Stop: 03/25/17 23:01 Methadone HCl (Dolophine -) 5 mg PO DAILY@0600 [facility] Stop: 03/30/17 06:01 Methadone HCl (Dolophine -) 15 mg PO DAILY [facility] Stop: 03/28/17 10:01 Methadone HCl (Dolophine -) 10 mg PO DAILY [facility] Stop: 03/29/17 10:01 Methadone HCl (Dolophine -) 20 mg PO DAILY [facility] Stop: 03/26/17 10:01 Oxycodone HCl (Roxicodone -) 20 mg PO Q6H PRN Last Admin: 03/25/17 08:40 Dose: 20 mg Multivit/Folic Acid/Iron ( Vitamins (Sjr) -) 1 tab PO DAILY [facility] Tamsulosin HCl (Flomax -) 0.4 mg PO DAILY@0830 [facility] Last Admin: 03/25/17 08:41 Dose: 0.4 mg Thiamine HCl (Vitamin B1 -) 100 mg PO DAILY [facility] Last Admin: 03/25/17 10:24 Dose: 100 mg Thiamine HCl (Vitamin B1 -) 100 mg PO [facility] - Objective Vital Signs: Vital Signs Temperature 36.5 C 03/24/17 19:33 Pulse Rate 99 H 03/24/17 19:33 Respiratory Rate 18 03/24/17 19:33 Blood Pressure 107/54 03/24/17 19:33 O2 Sat by Pulse Oximetry (%) 98 03/25/17 07:05 Constitutional: Yes: No Distress, Calm, Obese Cardiovascular: Yes: Regular Rate and Rhythm. No: Gallop, Murmur, Rub Respiratory: Yes: Regular, CTA Bilaterally. No: Rales, Rhonchi, Wheezes Gastrointestinal: Yes: Normal Bowel Sounds, Soft. No: Distention, Tenderness Extremities: Yes: Erythema (RLE>LLE) Edema: Yes Labs: CBC, BMP 03/25/17 05:49 03/25/17 05:49 INR, PTT INR 1.13 (0.82-1.09) D 03/24/17 20:20 Problem List - Problems (1) Cellulitis Assessment/Plan: -patient presents with cellulitis, R>L -given vancomycin overnight -suspect gram positive, low suspicion for pseudomonal infection -ID consulted and note reviewed, started on ancef Code(s): L03.90 - CELLULITIS, UNSPECIFIED Qualifiers: Site of cellulitis: other site Qualified Code(s): L03.818 - Cellulitis of other sites (2) Lower extremity edema Assessment/Plan: -patient says swelling occurred 4 days ago -reviewed notes from previous hospitalizations, no edema noted -last ECHO 6 months ago, will repeat since change -continue lasix Code(s): R60.0 - LOCALIZED EDEMA (3) Alcohol dependence with uncomplicated withdrawal Assessment/Plan: -appreciate Dr Box's assistance Code(s): F10.230 - ALCOHOL DEPENDENCE WITH WITHDRAWAL, UNCOMPLICATED (4) Alcoholic cirrhosis of liver Assessment/Plan: -outpatient management Code(s): K70.30 - ALCOHOLIC CIRRHOSIS OF LIVER WITHOUT ASCITES Qualifiers: Ascites presence: without ascites Qualified Code(s): K70.30 - Alcoholic cirrhosis of liver without ascites (5) BPH (benign prostatic hyperplasia) Assessment/Plan: -continue tamsulosin Code(s): N40.0 - BENIGN PROSTATIC HYPERPLASIA WITHOUT LOWER URINRY TRACT SYMP (6) Hypertension Assessment/Plan: -continue lasix Code(s): I10 - ESSENTIAL (PRIMARY) HYPERTENSION Qualifiers: Hypertension type: essential hypertension Qualified Code(s): I10 - Essential (primary) hypertension (7) Neuropathy Assessment/Plan: -on flexeril Code(s): G62.9 - POLYNEUROPATHY, UNSPECIFIED (8) Seizure Assessment/Plan: -continue home regimen Code(s): R56.9 - UNSPECIFIED CONVULSIONS
[2017-03-25] MEDS ORDERED: CEFAZOLIN 1 GM in DEXTROSE 5%-WATER - 50 ML IVPB SCH (11:00)
--- NOTE | 2017-03-25 11:02 | CON.ID ---
Consult Consult Specialty:: INFECTIOUS DISEASE - History of Present Illness Chief Complaint: B/L LE erythema/edema History of Present Illness: This is a 46 y.o. male with Alcohol abuse, ?liver cirrhosis, seizure d.o., obesity s/p bariatric surgery, and sleep apnea who presents with c/o b/l LE swelling and erythema. He states these symptoms start about 4 days ago. Denies fever but has had chills. He has been actively drinking alcohol. Denies pain in LEs and is ambulating. He is sexually active with one female partner and states he was tested for HIV and viral hepatitis one yr ago and was negative. No recent travel. - History Source History Provided By: Patient Limitations to Obtaining History: No Limitations - Past Medical History HUMAN INTELLIGENCE: Yes: Seizure (questionable vs pseudoseizures ) Cardio/Vascular: Yes: HTN Pulmonary: Yes: Sleep Apnea Hepatobiliary: Yes: Cirrhosis Psych: Yes: Addictions (alcohol) Musculoskeletal: Yes: Chronic low back pain - Past Surgical History Past Surgical History: Yes: Arthrosocopy (left shoulder, right knee), Bariatric Surgery (gastric band) - Alcohol/Substance Use Hx Alcohol Use: Yes Number of Drinks Daily: 5 History of Substance Use: reports: None Date of Last Use: 03/24/17 - Smoking History Smoking history: Never smoked Have you smoked in the past 12 months: No Aproximately how many cigarettes per day: 1 - Social History Usual Living Arrangement: With Parent (mother) ADL: Independent 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 of Recent Travel: No Home Medications - Allergies Allergies/Adverse Reactions: Allergies Allergy/AdvReac Type Severity Reaction Status Date / Time No Known Allergies Allergy Verified 03/24/17 19:37 - Home Medications Home Medications: Ambulatory Orders Gabapentin [Neurontin -] 600 mg PO TID 05/30/16 Furosemide [Lasix] 40 mg PO DAILY #3 tablet 06/23/16 Oxycodone HCl 20 mg PO Q6H PRN #120 tablet MDD 80mg 01/24/17 Cyclobenzaprine HCl [Flexeril -] 10 mg PO TID 03/25/17 Levetiracetam [Keppra -] 500 mg PO BID 03/25/17 Family Disease History - Family Disease History Family Disease History: Other: Father (Alive: 65 alcoholic), Mother (Alive: 62: healthy), Brother (Alive: Healthy), Sister (Alive: Healthy), Son (Healthy), Daughter (Healthy) Review of Systems - Review of Systems Constitutional: reports: No Symptoms Eyes: reports: No Symptoms HENT: reports: No Symptoms Neck: reports: No Symptoms Cardiovascular: reports: No Symptoms Respiratory: reports: No Symptoms Gastrointestinal: reports: No Symptoms Genitourinary: reports: Other (occasional urinary hesitancy) Musculoskeletal: reports: Back Pain (chronic s/p accident at work) Integumentary: reports: Erythema (b/l LE erythema/warmth/edema. No open lesions or induration/fluctuance.) Neurological: reports: No Symptoms Endocrine: reports: No Symptoms Hematology/Lymphatic: reports: No Symptoms Psychiatric: reports: No Symptoms Physical Exam Vital Signs: Vital Signs Temperature 98.6 F 03/25/17 07:10 Pulse Rate 78 03/25/17 07:10 Respiratory Rate 18 03/25/17 07:10 Blood Pressure 110/78 03/25/17 07:10 O2 Sat by Pulse Oximetry (%) 99 03/25/17 07:10 Constitutional: Yes: No Distress, Calm Neck: Yes: Supple Cardiovascular: Yes: Regular Rate and Rhythm Respiratory: Yes: CTA Bilaterally Gastrointestinal: Yes: Normal Bowel Sounds, Soft Renal/: Yes: Other (occ. urinary hesitancy) Musculoskeletal: Yes: Back Pain (chronic) Extremities: Yes: Erythema Edema: LLE: 3+, RLE: 3+ Neurological: Yes: Alert, Oriented ...Motor Strength: WNL Psychiatric: Yes: Alert Labs: CBC, BMP 03/25/17 05:49 03/25/17 05:49 Laboratory Results - last 24 hr 03/24/17 03/24/17 03/24/17 20:11 20:11 20:11 WBC RBC Hgb Hct MCV MCH MCHC RDW Plt Count MPV Neutrophils % Lymphocytes % Monocytes % Eosinophils % Basophils % PT with INR INR Sodium 133 L Potassium 4.1 D Chloride 97 L Carbon Dioxide 32 D Anion Gap 4 L BUN 8 D Creatinine 0.7 D Creat Clearance w eGFR > 60 Random Glucose 100 Calcium 7.9 L Magnesium 2.0 Total Bilirubin 0.9 D AST 48 H ALT 32 Alkaline Phosphatase 209 H D Ammonia 66.40 H Creatine Kinase 248 Creatine Kinase Index 3.3 CK-MB (CK-2) 8.416 H Troponin I < 0.02 B-Natriuretic Peptide 19.57 Total Protein 7.5 Albumin 3.1 L Urine Color Urine Appearance Urine pH Ur Specific Gordon Urine Protein Urine Glucose (UA) Urine Ketones Urine Blood Urine Nitrite Urine Bilirubin Urine Urobilinogen Ur Leukocyte Esterase Opiates Screen Methadone Screen Barbiturate Screen Phencyclidine Screen Ur Amphetamines Screen MDMA (Ecstasy) Screen Benzodiazepines Screen Cocaine Screen U Marijuana (THC) Screen Alcohol, Quantitative 114.5 H* 03/24/17 03/24/17 03/24/17 20:20 20:20 20:20 WBC 9.6 RBC 4.03 Hgb 13.6 D Hct 40.1 D MCV 99.5 H MCH 33.8 H MCHC 34.0 RDW 14.4 Plt Count 165 MPV 7.2 L Neutrophils % 54.0 Lymphocytes % 24.4 Monocytes % 17.1 H Eosinophils % 3.9 Basophils % 0.6 PT with INR 12.80 H INR 1.13 D Sodium Potassium Chloride Carbon Dioxide Anion Gap BUN Creatinine Creat Clearance w eGFR Random Glucose Calcium Magnesium Total Bilirubin AST ALT Alkaline Phosphatase Ammonia Creatine Kinase Creatine Kinase Index CK-MB (CK-2) Troponin I B-Natriuretic Peptide Total Protein Albumin Urine Color Ltyellow Urine Appearance Clear Urine pH 6.0 Ur Specific Gordon 1.004 Urine Protein Negative Urine Glucose (UA) Negative Urine Ketones Negative Urine Blood Negative Urine Nitrite Negative Urine Bilirubin Negative Urine Urobilinogen 4.0 e.u/dl Ur Leukocyte Esterase Trace H Opiates Screen Methadone Screen Barbiturate Screen Phencyclidine Screen Ur Amphetamines Screen MDMA (Ecstasy) Screen Benzodiazepines Screen Cocaine Screen U Marijuana (THC) Screen Alcohol, Quantitative 03/24/17 03/25/17 03/25/17 20:20 05:49 05:49 WBC 8.0 RBC 3.95 L Hgb 13.6 Hct 39.6 MCV 100.2 H MCH 34.4 H MCHC 34.4 RDW 14.2 Plt Count 169 MPV 7.6 Neutrophils % 62.9 Lymphocytes % 19.1 D Monocytes % 14.1 H Eosinophils % 3.4 Basophils % 0.5 PT with INR INR Sodium 134 L Potassium 3.8 Chloride 99 Carbon Dioxide 27 Anion Gap 8 BUN 9 Creatinine 0.5 L D Creat Clearance w eGFR Random Glucose 116 H Calcium 7.5 L Magnesium Total Bilirubin AST ALT Alkaline Phosphatase Ammonia Creatine Kinase Creatine Kinase Index CK-MB (CK-2) Troponin I B-Natriuretic Peptide Total Protein Albumin Urine Color Urine Appearance Urine pH Ur Specific Gordon Urine Protein Urine Glucose (UA) Urine Ketones Urine Blood Urine Nitrite Urine Bilirubin Urine Urobilinogen Ur Leukocyte Esterase Opiates Screen Positive Methadone Screen Negative Barbiturate Screen Negative Phencyclidine Screen Negative Ur Amphetamines Screen Negative MDMA (Ecstasy) Screen Negative Benzodiazepines Screen Negative Cocaine Screen Negative U Marijuana (THC) Screen Negative Alcohol, Quantitative Imaging - Results X-ray: Report Reviewed Problem List - Problems (1) Cellulitis Code(s): L03.90 - CELLULITIS, UNSPECIFIED Qualifiers: Site of cellulitis: other site Qualified Code(s): L03.818 - Cellulitis of other sites (2) Alcohol abuse Code(s): F10.10 - ALCOHOL ABUSE, UNCOMPLICATED (3) Alcoholic cirrhosis of liver Code(s): K70.30 - ALCOHOLIC CIRRHOSIS OF LIVER WITHOUT ASCITES Qualifiers: Ascites presence: without ascites Qualified Code(s): K70.30 - Alcoholic cirrhosis of liver without ascites (4) Edema extremities Code(s): R60.0 - LOCALIZED EDEMA Assessment/Plan 46 y.o. male with alcohol abuse, liver cirrhosis, chronic back pain presenting with b/l LE edema/erythema/warmth x 4 days B/L LE cellulitis - will start Ancef IV - monitor for improvement of symptoms - pt afebrile, currently stable
[2017-03-25 11:18] VITALS: BMI 33.5
[2017-03-25] MEDS: PANTOPRAZOLE 40 MG TABLET (FP) PO SCH (12:26)
[2017-03-25] MEDS: chlordiazePOXIDE HCL 25 MG CAPSULE PO SCH ×3 (12:28→22:34)
[2017-03-25] MEDS: PRENATAL VITAMINS W/ FOLIC ACID TABLET (FP) PO SCH (12:42)
[2017-03-25] MEDS: NAPROXEN 500 MG TABLET (FP) PO SCH ×2 (14:10→22:46)
[2017-03-25] MEDS: CEFAZOLIN 1 GM PUSH 1 GM/10 ML DISP.SYRIN IVPUSH SCH ×2 (15:28→18:44)
[2017-03-25] MEDS: ZOLPIDEM TARTRATE 5 MG TABLET PO PRN (22:32)
[2017-03-25] MEDS: THIAMINE HCL 100 MG TABLET (FP) PO SCH (22:34)
[2017-03-26] MEDS ORDERED: PT OWN MED DRAWER 7, Y5N ONE ×2 (01:40→09:40)
[2017-03-26] MEDS: CEFAZOLIN 1 GM PUSH 1 GM/10 ML DISP.SYRIN IVPUSH SCH ×3 (01:44→18:27)
[2017-03-26 05:33] LABS: MCH 34.5 pg (25.7-33.7); MCHC 34.6 g/dl (32.0-35.9); MEAN CELL VOLUME 99.7 fl (80-96); MEAN PLT VOLUME 7.3 fl (7.5-11.1); PLATELET COUNT 138 K/MM3 (134-434); RDW 14.3 % (11.9-15.9); WHITE BLOOD COUNT 5.3 K/mm3 (4.0-10.0)
[2017-03-26 05:59] LABS: ANION GAP 4 (8-16); CALCIUM 7.7 mg/dL (8.5-10.1); CO2 31 mmol/L (21-32); CREATININE 0.5 mg/dL (0.7-1.3); GLUCOSE,RANDOM 97 mg/dL (74-106); MAGNESIUM 1.8 mg/dL (1.8-2.4); PHOSPHOROUS 3.2 mg/dL (2.5-4.9)
[2017-03-26] MEDS: chlordiazePOXIDE HCL 25 MG CAPSULE PO SCH ×4 (06:00→22:10)
[2017-03-26 06:29] LABS: METAMYELOCYTE 0 % (0-2); MYELOCYTE 0 % (0-2); REACTIVE LYMPHOCYTES 3 % (0-80)
[2017-03-26] MEDS: CYCLOBENZAPRINE HCL 10 MG TABLET (FP) PO SCH ×3 (06:34→21:18)
[2017-03-26] MEDS: GABAPENTIN 300 MG CAPSULE (FP) PO SCH ×3 (06:34→22:12)
[2017-03-26] MEDS: oxyCODONE HCL 5 MG TABLET PO PRN ×3 (06:35→21:16)
[2017-03-26] MEDS: HEPARIN NA (PORCINE) 5,000 UNITS/ML 1ML VIAL SQ SCH ×3 (06:36→22:12)
[2017-03-26] MEDS: FOLIC ACID 1 MG TABLET (FP) PO SCH (09:43)
[2017-03-26] MEDS: levETIRAcetam 500 MG TABLET (FP) PO SCH ×2 (09:43→22:12)
[2017-03-26] MEDS: PANTOPRAZOLE 40 MG TABLET (FP) PO SCH (09:43)
[2017-03-26] MEDS: NAPROXEN 500 MG TABLET (FP) PO SCH ×2 (09:43→22:10)
[2017-03-26] MEDS: FUROSEMIDE 40 MG TABLET (FP) PO SCH (09:43)
[2017-03-26] MEDS: TAMSULOSIN HCL 0.4 MG CAP.ER.24H (FP) PO SCH (09:43)
[2017-03-26] MEDS: PRENATAL VITAMINS W/ FOLIC ACID TABLET (FP) PO SCH (09:43)
[2017-03-26] MEDS ORDERED: METHADONE HCL 10 MG TABLET (FOR DETOX USE ONLY) PO SCH (10:00)
--- NOTE | 2017-03-26 12:35 | PN ---
Progress Note, Physician Chief Complaint: Mr Blount says he is feeling better. Feels the swelling is decreased today. No cp, sob, n/v. Chronic pain unchanged. - Current Medication List Current Medications: Active Medications Chlordiazepoxide HCl (Librium -) 25 mg PO [id number] [facility] Stop: 03/27/17 05:01 Chlordiazepoxide HCl (Librium -) 15 mg PO [id number] [facility] Stop: 03/28/17 05:01 Chlordiazepoxide HCl (Librium -) 25 mg PO Q4H PRN PRN Reason: WITHDRAWAL(CONT SUBST) Stop: 03/28/17 10:25 Cyclobenzaprine HCl (Flexeril -) 10 mg PO TID [facility] Last Admin: 03/26/17 06:34 Dose: 10 mg Folic Acid (Folic Acid -) 1 mg PO DAILY [facility] Last Admin: 03/26/17 09:43 Dose: 1 mg Furosemide (Lasix -) 40 mg PO DAILY [facility] Last Admin: 03/26/17 09:43 Dose: 40 mg Gabapentin (Neurontin -) 600 mg PO TID [facility] Last Admin: 03/26/17 06:34 Dose: 600 mg Heparin Sodium (Porcine) (Heparin -) 5,000 unit SQ TID [facility] Last Admin: 03/26/17 06:36 Dose: 5,000 unit Cefazolin Sodium (Ancef -) 1 gm in 10 mls @ 120 mls/hr IVPUSH Q8H-IV [facility] Last Admin: 03/26/17 10:44 Dose: 120 mls/hr Levetiracetam (Keppra -) 500 mg PO BID [facility] Last Admin: 03/26/17 09:43 Dose: 500 mg Naproxen (Naprosyn -) 500 mg PO BID [facility] Last Admin: 03/26/17 09:43 Dose: 500 mg Oxycodone HCl (Roxicodone -) 20 mg PO Q6H PRN Last Admin: 03/26/17 06:35 Dose: 20 mg Pantoprazole Sodium (Protonix -) 40 mg PO DAILY [facility] Last Admin: 03/26/17 09:43 Dose: 40 mg Multivit/Folic Acid/Iron ( Vitamins (Sjr) -) 1 tab PO DAILY [facility] Last Admin: 03/26/17 09:43 Dose: 1 tab Tamsulosin HCl (Flomax -) 0.4 mg PO DAILY@0830 [facility] Last Admin: 03/26/17 09:43 Dose: 0.4 mg Thiamine HCl (Vitamin B1 -) 100 mg PO HS [facility] Last Admin: 03/25/17 22:34 Dose: 100 mg Zolpidem Tartrate (Ambien -) 10 mg PO HS PRN PRN Reason: INSOMNIA Last Admin: 03/25/17 22:32 Dose: 10 mg - Objective Vital Signs: Vital Signs Temperature 36.4 C L 03/26/17 06:00 Pulse Rate 79 03/26/17 06:00 Respiratory Rate 18 03/26/17 06:00 Blood Pressure 121/72 03/26/17 06:00 O2 Sat by Pulse Oximetry (%) 96 03/25/17 21:00 Constitutional: Yes: Well Nourished, No Distress, Calm Cardiovascular: Yes: Regular Rate and Rhythm, Varicosities. No: Gallop, Murmur , Rub Respiratory: Yes: CTA Bilaterally. No: Rales, Rhonchi, Wheezes Gastrointestinal: Yes: Normal Bowel Sounds, Soft. No: Distention, Tenderness Extremities: Yes: Erythema (much improved, gravity dependent) Edema: LLE: 2+, RLE: 2+ Labs: CBC, BMP 03/26/17 05:22 03/26/17 05:18 INR, PTT INR 1.13 (0.82-1.09) D 03/24/17 20:20 Problem List - Problems (1) Cellulitis Code(s): L03.90 - CELLULITIS, UNSPECIFIED Qualifiers: Site of cellulitis: other site Qualified Code(s): L03.818 - Cellulitis of other sites (2) Lower extremity edema Code(s): R60.0 - LOCALIZED EDEMA (3) Alcohol dependence with uncomplicated withdrawal Code(s): F10.230 - ALCOHOL DEPENDENCE WITH WITHDRAWAL, UNCOMPLICATED (4) Alcoholic cirrhosis of liver Code(s): K70.30 - ALCOHOLIC CIRRHOSIS OF LIVER WITHOUT ASCITES Qualifiers: Ascites presence: without ascites Qualified Code(s): K70.30 - Alcoholic cirrhosis of liver without ascites (5) BPH (benign prostatic hyperplasia) Code(s): N40.0 - BENIGN PROSTATIC HYPERPLASIA WITHOUT LOWER URINRY TRACT SYMP (6) Hypertension Code(s): I10 - ESSENTIAL (PRIMARY) HYPERTENSION Qualifiers: Hypertension type: essential hypertension Qualified Code(s): I10 - Essential (primary) hypertension (7) Neuropathy Code(s): G62.9 - POLYNEUROPATHY, UNSPECIFIED (8) Seizure Code(s): R56.9 - UNSPECIFIED CONVULSIONS Assessment/Plan (1) Cellulitis Assessment/Plan: -case d/w ID -continue ancef, possible change to keflex to finish course Code(s): L03.90 - CELLULITIS, UNSPECIFIED Qualifiers: Site of cellulitis: other site Qualified Code(s): L03.818 - Cellulitis of other sites (2) Lower extremity edema Assessment/Plan: -ECHO reviewed -continue lasix -improved Code(s): R60.0 - LOCALIZED EDEMA (3) Alcohol dependence with uncomplicated withdrawal Assessment/Plan: -appreciate Dr Box's assistance -continue libruium taper Code(s): F10.230 - ALCOHOL DEPENDENCE WITH WITHDRAWAL, UNCOMPLICATED (4) Alcoholic cirrhosis of liver Assessment/Plan: -outpatient management Code(s): K70.30 - ALCOHOLIC CIRRHOSIS OF LIVER WITHOUT ASCITES Qualifiers: Ascites presence: without ascites Qualified Code(s): K70.30 - Alcoholic cirrhosis of liver without ascites (5) BPH (benign prostatic hyperplasia) Assessment/Plan: -continue tamsulosin Code(s): N40.0 - BENIGN PROSTATIC HYPERPLASIA WITHOUT LOWER URINRY TRACT SYMP (6) Hypertension Assessment/Plan: -continue lasix Code(s): I10 - ESSENTIAL (PRIMARY) HYPERTENSION Qualifiers: Hypertension type: essential hypertension Qualified Code(s): I10 - Essential (primary) hypertension (7) Neuropathy Assessment/Plan: -on flexeril Code(s): G62.9 - POLYNEUROPATHY, UNSPECIFIED (8) Seizure Assessment/Plan: -continue home regimen Code(s): R56.9 - UNSPECIFIED CONVULSIONS Dispo -possible discharge tomorrow
--- NOTE | 2017-03-26 12:52 | PN ---
Progress Note, Physician History of Present Illness: Pt states he feels much better. Less pain in LEs, ambulating without difficulty. No new complaints. - Current Medication List Current Medications: Active Medications Chlordiazepoxide HCl (Librium -) 25 mg PO [id number] [facility] Stop: 03/27/17 05:01 Chlordiazepoxide HCl (Librium -) 15 mg PO [id number] [facility] Stop: 03/28/17 05:01 Chlordiazepoxide HCl (Librium -) 25 mg PO Q4H PRN PRN Reason: WITHDRAWAL(CONT SUBST) Stop: 03/28/17 10:25 Cyclobenzaprine HCl (Flexeril -) 10 mg PO TID [facility] Last Admin: 03/26/17 06:34 Dose: 10 mg Folic Acid (Folic Acid -) 1 mg PO DAILY [facility] Last Admin: 03/26/17 09:43 Dose: 1 mg Furosemide (Lasix -) 40 mg PO DAILY [facility] Last Admin: 03/26/17 09:43 Dose: 40 mg Gabapentin (Neurontin -) 600 mg PO TID [facility] Last Admin: 03/26/17 06:34 Dose: 600 mg Heparin Sodium (Porcine) (Heparin -) 5,000 unit SQ TID [facility] Last Admin: 03/26/17 06:36 Dose: 5,000 unit Cefazolin Sodium (Ancef -) 1 gm in 10 mls @ 120 mls/hr IVPUSH Q8H-IV [facility] Last Admin: 03/26/17 10:44 Dose: 120 mls/hr Levetiracetam (Keppra -) 500 mg PO BID [facility] Last Admin: 03/26/17 09:43 Dose: 500 mg Naproxen (Naprosyn -) 500 mg PO BID [facility] Last Admin: 03/26/17 09:43 Dose: 500 mg Oxycodone HCl (Roxicodone -) 20 mg PO Q6H PRN Last Admin: 03/26/17 06:35 Dose: 20 mg Pantoprazole Sodium (Protonix -) 40 mg PO DAILY [facility] Last Admin: 03/26/17 09:43 Dose: 40 mg Multivit/Folic Acid/Iron ( Vitamins (Sjr) -) 1 tab PO DAILY [facility] Last Admin: 03/26/17 09:43 Dose: 1 tab Tamsulosin HCl (Flomax -) 0.4 mg PO DAILY@0830 [facility] Last Admin: 03/26/17 09:43 Dose: 0.4 mg Thiamine HCl (Vitamin B1 -) 100 mg PO HS [facility] Last Admin: 03/25/17 22:34 Dose: 100 mg Zolpidem Tartrate (Ambien -) 10 mg PO HS PRN PRN Reason: INSOMNIA Last Admin: 03/25/17 22:32 Dose: 10 mg - Objective Vital Signs: Vital Signs Temperature 97.5 F L 03/26/17 06:00 Pulse Rate 79 03/26/17 06:00 Respiratory Rate 18 03/26/17 06:00 Blood Pressure 121/72 03/26/17 06:00 O2 Sat by Pulse Oximetry (%) 96 03/25/17 21:00 Constitutional: Yes: No Distress, Calm Neck: Yes: Supple Cardiovascular: Yes: Regular Rate and Rhythm Respiratory: Yes: CTA Bilaterally Gastrointestinal: Yes: Normal Bowel Sounds, Soft Integumentary: Yes: Erythema (b/l Leg erythema/warmth improving, no tenderness) Labs: CBC, BMP 03/26/17 05:22 03/26/17 05:18 INR, PTT INR 1.13 (0.82-1.09) D 03/24/17 20:20 Problem List - Problems (1) Cellulitis Code(s): L03.90 - CELLULITIS, UNSPECIFIED Qualifiers: Site of cellulitis: other site Qualified Code(s): L03.818 - Cellulitis of other sites (2) Alcohol abuse Code(s): F10.10 - ALCOHOL ABUSE, UNCOMPLICATED (3) Alcoholic cirrhosis of liver Code(s): K70.30 - ALCOHOLIC CIRRHOSIS OF LIVER WITHOUT ASCITES Qualifiers: Ascites presence: without ascites Qualified Code(s): K70.30 - Alcoholic cirrhosis of liver without ascites (4) Edema extremities Code(s): R60.0 - LOCALIZED EDEMA Assessment/Plan 46 y.o. male with alcohol abuse, liver cirrhosis, chronic back pain presenting with b/l LE edema/erythema/warmth x 4 days B/L LE cellulitis - improving - On ancef, plan switch to keflex po upon discharge pt currently stable d/w Dr. Hanley
[2017-03-26] MEDS: THIAMINE HCL 100 MG TABLET (FP) PO SCH (21:18)
[2017-03-26] MEDS: ZOLPIDEM TARTRATE 5 MG TABLET PO PRN (22:11)
[2017-03-27] MEDS: CEFAZOLIN 1 GM PUSH 1 GM/10 ML DISP.SYRIN IVPUSH SCH ×2 (02:57→09:59)
[2017-03-27] MEDS: oxyCODONE HCL 5 MG TABLET PO PRN (03:24)
[2017-03-27] MEDS: chlordiazePOXIDE HCL 25 MG CAPSULE PO SCH (06:29)
[2017-03-27] MEDS: CYCLOBENZAPRINE HCL 10 MG TABLET (FP) PO SCH (06:29)
[2017-03-27] MEDS: HEPARIN NA (PORCINE) 5,000 UNITS/ML 1ML VIAL SQ SCH (06:29)
[2017-03-27] MEDS: GABAPENTIN 300 MG CAPSULE (FP) PO SCH (06:30)
[2017-03-27 09:06] LABS: ANION GAP 6 (8-16); CALCIUM 8.5 mg/dL (8.5-10.1); CO2 32 mmol/L (21-32); GLUCOSE,RANDOM 76 mg/dL (74-106); MAGNESIUM 1.9 mg/dL (1.8-2.4)
[2017-03-27 09:09] LABS: CREATININE 0.6 mg/dL (0.7-1.3); PHOSPHOROUS 3.6 mg/dL (2.5-4.9)
[2017-03-27 09:32] VITALS: BP 100/64; PULSE 88; TEMP 98.2
[2017-03-27 09:34] LABS: BASOPHIL 0.6 % (0-2.0); EOSINOPHIL 4.1 % (0-4.5); MCH 33.2 pg (25.7-33.7); MCHC 32.7 g/dl (32.0-35.9); MEAN CELL VOLUME 101.5 fl (80-96); NEUTROPHILS 58.4 % (42.8-82.8); PLATELET COUNT 131 K/MM3 (134-434); WHITE BLOOD COUNT 6.5 K/mm3 (4.0-10.0)
[2017-03-27] MEDS: TAMSULOSIN HCL 0.4 MG CAP.ER.24H (FP) PO SCH (09:59)
[2017-03-27] MEDS: NAPROXEN 500 MG TABLET (FP) PO SCH (10:00)
[2017-03-27] MEDS: levETIRAcetam 500 MG TABLET (FP) PO SCH (10:00)
[2017-03-27] MEDS ORDERED: METHADONE HCL 5 MG TABLET (FOR DETOX USE ONLY) PO SCH (10:00)
[2017-03-27] MEDS: FOLIC ACID 1 MG TABLET (FP) PO SCH (10:00)
[2017-03-27] MEDS: FUROSEMIDE 40 MG TABLET (FP) PO SCH (10:00)
[2017-03-27] MEDS: PRENATAL VITAMINS W/ FOLIC ACID TABLET (FP) PO SCH (10:01)
[2017-03-27] MEDS: PANTOPRAZOLE 40 MG TABLET (FP) PO SCH (10:01)
[2017-03-27] MEDS ORDERED: chlordiazePOXIDE 5 MG CAPSULE PO SCH (11:00)
--- NOTE | 2017-03-27 12:04 | PN ---
Progress Note, Physician History of Present Illness: Pt states he feels much better. Legs with no tenderness/warmth b/l. No new complaints. - Current Medication List Current Medications: Active Medications Chlordiazepoxide HCl (Librium -) 15 mg PO [id number] [facility] Stop: 03/28/17 05:01 Last Admin: 03/27/17 10:37 Dose: 15 mg Chlordiazepoxide HCl (Librium -) 25 mg PO Q4H PRN PRN Reason: WITHDRAWAL(CONT SUBST) Stop: 03/28/17 10:25 Cyclobenzaprine HCl (Flexeril -) 10 mg PO TID [facility] Last Admin: 03/27/17 06:29 Dose: 10 mg Folic Acid (Folic Acid -) 1 mg PO DAILY [facility] Last Admin: 03/27/17 10:00 Dose: 1 mg Furosemide (Lasix -) 40 mg PO DAILY [facility] Last Admin: 03/27/17 10:00 Dose: 40 mg Gabapentin (Neurontin -) 600 mg PO TID [facility] Last Admin: 03/27/17 06:30 Dose: 600 mg Heparin Sodium (Porcine) (Heparin -) 5,000 unit SQ TID [facility] Last Admin: 03/27/17 06:29 Dose: 5,000 unit Cefazolin Sodium (Ancef -) 1 gm in 10 mls @ 120 mls/hr IVPUSH Q8H-IV [facility] Last Admin: 03/27/17 09:59 Dose: 120 mls/hr Levetiracetam (Keppra -) 500 mg PO BID [facility] Last Admin: 03/27/17 10:00 Dose: 500 mg Naproxen (Naprosyn -) 500 mg PO BID [facility] Last Admin: 03/27/17 10:00 Dose: 500 mg Oxycodone HCl (Roxicodone -) 20 mg PO Q6H PRN Last Admin: 03/27/17 03:24 Dose: 20 mg Pantoprazole Sodium (Protonix -) 40 mg PO DAILY [facility] Last Admin: 03/27/17 10:01 Dose: 40 mg Multivit/Folic Acid/Iron ( Vitamins (Sjr) -) 1 tab PO DAILY [facility] Last Admin: 03/27/17 10:01 Dose: 1 tab Tamsulosin HCl (Flomax -) 0.4 mg PO DAILY@0830 [facility] Last Admin: 03/27/17 09:59 Dose: 0.4 mg Thiamine HCl (Vitamin B1 -) 100 mg PO HS [facility] Last Admin: 03/26/17 21:18 Dose: 100 mg Zolpidem Tartrate (Ambien -) 10 mg PO HS PRN PRN Reason: INSOMNIA Last Admin: 03/26/17 22:11 Dose: 10 mg - Objective Vital Signs: Vital Signs Temperature 98.2 F 03/27/17 09:00 Pulse Rate 88 03/27/17 09:00 Respiratory Rate 18 03/27/17 09:00 Blood Pressure 100/64 03/27/17 09:00 O2 Sat by Pulse Oximetry (%) 95 03/27/17 09:00 Constitutional: Yes: No Distress, Calm Cardiovascular: Yes: Regular Rate and Rhythm Respiratory: Yes: Regular Gastrointestinal: Yes: Normal Bowel Sounds, Soft Genitourinary: Yes: WNL Extremities: Yes: Erythema (b/l decreased erythema/warmth, no tenderness) Neurological: Yes: Alert, Oriented Labs: CBC, BMP 03/27/17 09:24 03/27/17 07:40 INR, PTT INR 1.13 (0.82-1.09) D 03/24/17 20:20 Problem List - Problems (1) Cellulitis Code(s): L03.90 - CELLULITIS, UNSPECIFIED Qualifiers: Site of cellulitis: other site Qualified Code(s): L03.818 - Cellulitis of other sites (2) Alcohol abuse Code(s): F10.10 - ALCOHOL ABUSE, UNCOMPLICATED (3) Alcoholic cirrhosis of liver Code(s): K70.30 - ALCOHOLIC CIRRHOSIS OF LIVER WITHOUT ASCITES Qualifiers: Ascites presence: without ascites Qualified Code(s): K70.30 - Alcoholic cirrhosis of liver without ascites (4) Edema extremities Code(s): R60.0 - LOCALIZED EDEMA Assessment/Plan 46 y.o. male with alcohol abuse, liver cirrhosis, chronic back pain presenting with b/l LE edema/erythema/warmth x 4 days B/L LE cellulitis - improving - for d/c today on keflex po - pt instructed to f/u with PMD within a week pt stable
--- NOTE | 2017-03-27 14:30 | DS ---
Physical Examination Vital Signs: Vital Signs Temperature 36.8 C 03/27/17 09:00 Pulse Rate 88 03/27/17 09:00 Respiratory Rate 18 03/27/17 09:00 Blood Pressure 100/64 03/27/17 09:00 O2 Sat by Pulse Oximetry (%) 95 03/27/17 09:00 Constitutional: Yes: Well Nourished, No Distress, Calm Cardiovascular: Yes: Regular Rate and Rhythm. No: Gallop, Murmur, Rub Respiratory: Yes: Regular, CTA Bilaterally. No: Rales, Rhonchi, Wheezes Gastrointestinal: Yes: Normal Bowel Sounds, Soft. No: Distention, Tenderness Extremities: Yes: Erythema (minimal) Edema: Yes Edema: LLE: 2+, RLE: 2+ Labs: CBC, BMP 03/27/17 09:24 03/27/17 07:40 Discharge Summary Reason For Visit: CELLULITIS Hospital Course: (1) Cellulitis Code(s): L03.90 - CELLULITIS, UNSPECIFIED Qualifiers: Site of cellulitis: other site Qualified Code(s): L03.818 - Cellulitis of other sites (2) Lower extremity edema Code(s): R60.0 - LOCALIZED EDEMA (3) Alcohol dependence with uncomplicated withdrawal Code(s): F10.230 - ALCOHOL DEPENDENCE WITH WITHDRAWAL, UNCOMPLICATED (4) Alcoholic cirrhosis of liver Code(s): K70.30 - ALCOHOLIC CIRRHOSIS OF LIVER WITHOUT ASCITES Qualifiers: Ascites presence: without ascites Qualified Code(s): K70.30 - Alcoholic cirrhosis of liver without ascites (5) BPH (benign prostatic hyperplasia) Code(s): N40.0 - BENIGN PROSTATIC HYPERPLASIA WITHOUT LOWER URINRY TRACT SYMP (6) Hypertension Code(s): I10 - ESSENTIAL (PRIMARY) HYPERTENSION Qualifiers: Hypertension type: essential hypertension Qualified Code(s): I10 - Essential (primary) hypertension (7) Neuropathy Code(s): G62.9 - POLYNEUROPATHY, UNSPECIFIED (8) Seizure Code(s): R56.9 - UNSPECIFIED CONVULSIONS Mr Blount is a 46 year old male who comes in with cellulitis. He was admitted to the hospital and originally started on vancomycin, however ID saw him and had low suspicion for MRSA and he was transitioned over to ancef. He improved significantly on ancef and his erythema has almost resolved. He can be changed to oral keflex to finish the course. He was also noted to have bilateral leg swelling. ECHO was performed and reviewed. He can continue on oral lasix with follow up with Dr Rush. He had some symptoms of bph, he was placed on tamsulosin and this resolved. He was seen by addiction medicine and recommended outpatient follow up. His pain regimen was unchanged. He was counselled to stop drinking alcohol and he understood. He is currently stable for discharge home. 33 minutes spent in preparation of this discharge Condition: Stable - Instructions Diet, Activity, Other Instructions: resume previous diet and activity. Counselled patient to stop alcohol. Referrals: Neil Rush MD [Primary Care Provider] - Disposition: HOME - Home Medications Comprehensive Discharge Medication List: Ambulatory Orders Gabapentin [Neurontin -] 600 mg PO TID 05/30/16 Furosemide [Lasix] 40 mg PO DAILY #3 tablet 06/23/16 Oxycodone HCl 20 mg PO Q6H PRN #120 tablet MDD 80mg 01/24/17 Cyclobenzaprine HCl [Flexeril -] 10 mg PO TID 03/25/17 Levetiracetam [Keppra -] 500 mg PO BID 03/25/17 Cephalexin [Keflex] 500 mg PO BID #8 capsule 03/27/17 Folic Acid - 1 mg PO DAILY #30 tablet 03/27/17 Lactobacillus Acidophilus [Probiotic] 1 each PO DAILY #10 capsule 03/27/17 Tamsulosin HCl [Flomax -] 0.4 mg PO DAILY@0830 #30 cap.er.24h 03/27/17 Thiamine HCl [Vitamin B1 -] 100 mg PO HS #30 tablet 03/27/17
[2017-03-29] MEDS ORDERED: METHADONE HCL 10 MG TABLET (FOR DETOX USE ONLY) PO SCH (10:00)
[2017-03-30] MEDS ORDERED: METHADONE HCL 5 MG TABLET (FOR DETOX USE ONLY) PO SCH (06:00)
== END 2017-03-27 12:30 | disposition home or self-care (01) | DRG 383 ==
LOC: JER 19:29 → JERBED 03-25 03:39 → J5S 03-25 11:23
PROVIDERS: ADMIT Internal Medicine; ATTEND Internal Medicine
DX: L03.116 Cellulitis of left lower limb (principal); L03.115 Cellulitis of right lower limb; K70.30 Alcoholic cirrhosis of liver without ascites; F10.230 Alcohol dependence with withdrawal, uncomplicated; E72.20 Disorder of urea cycle metabolism, unspecified; G62.9 Polyneuropathy, unspecified; K76.0 Fatty (change of) liver, not elsewhere classified; R56.9 Unspecified convulsions; I10 Essential (primary) hypertension; F31.89 Other bipolar disorder; E87.6 Hypokalemia; N40.0 Benign prostatic hyperplasia without lower urinary tract symptoms; G47.39 Other sleep apnea; M54.5 Low back pain; R60.0 Localized edema; Z98.84 Bariatric surgery status; E66.8 Other obesity; Z68.35 Body mass index [BMI] 35.0-35.9, adult
CPT/HCPCS: 36415; 71020-TC; 73590-TC-LT; 73590-TC-RT; 80048; 80053; 80307; 81003; 81015; 82140; 82550; 82553; 83735; 83880; 84100; 84484; 85025; 85610; 87040; 93306-TC; 93970-TC; 99285-25; J1644

== ENCOUNTER 2017-03-30 16:49 | Emergency (ER) | payer OTHER ==
[2017-03-30 16:53] VITALS: BP 107/71; PULSE 101; TEMP 98.2; BMI 35.8
--- NOTE | 2017-03-30 17:31 | PDOC ---
History of Present Illness - General History Source: Patient, Family, Old Records Exam Limitations: No Limitations - History of Present Illness Initial Comments: 03/30/17 20:02 The patient is a 46 year old male, with a significant past medical history of seizures, alcohol abuse, liver cirrhosis, peripheral neuropathy, chronic back pain, bipolar disorder, HTN, and hypokalemia, who presents to the emergency department with increased erythema and swelling in the bilateral lower extremities. The patient was in the ED on 03/24/17 and was admitted for the same symptoms. He was discharged on 03/27/17 after improvement of symptoms. The patient denies chest pain, shortness of breath, headache and dizziness. Denies fever, chills, nausea, vomit, diarrhea and constipation. Denies dysuria, frequency, urgency and hematuria. Allergies: None Past surgical history: ARTHROSCOPY LEFT SHOULDER 2011), LAP BAND 2009/umbilical hernia repaired 2013 Social history: Social alcohol use. No tobacco or drug use reported <Miky Bullock - Last Filed: 03/30/17 20:02> <Kera Sung - Last Filed: 03/30/17 23:26> - General Chief Complaint: Redness To Affected Area Stated Complaint: PCP SENT Time Seen by Provider: 03/30/17 17:10 Past History <Miky Bullock - Last Filed: 03/30/17 20:02> - Past Medical History Anemia: No Asthma: No Cancer: No Cardiac Disorders: No CVA: No COPD: No CHF: No Dementia: No Diabetes: No GI Disorders: No Disorders: No HTN: No Hypercholesterolemia: No Kidney Stones: No Liver Disease: Yes (fatty liver, CIRHOSIS) Psychiatric Problems: Yes Seizures: No Thyroid Disease: No - Surgical History Abdominal Surgery: Yes (LAP BAND 2009/umbilical hernia repaired 2013) Appendectomy: No Cardiac Surgery: No Cholecystectomy: No GI Surgery: Yes (hernia repair) Lung Surgery: No Neurologic Surgery: No Orthopedic Surgery: Yes (ARTHROSCOPY LEFT SHOULDER 2011) - Reproductive History Testicular Surgery: No - Immunization History Immunization Up to Date: Yes - Suicide/Smoking/Psychosocial Hx Smoking Status: No Smoking History: Never smoked Have you smoked in the past 12 months: No Number of Cigarettes Smoked Daily: 1 Cigars Per Day: 1 'Breaking Loose' booklet given: 01/23/17 Hx Alcohol Use: Yes (social) Drug/Substance Use Hx: No Substance Use Type: None Hx Substance Use Treatment: Yes ([facility] detox from alcohol) <PinedaKera Rincon - Last Filed: 03/30/17 23:26> - Past Medical History Allergies/Adverse Reactions: Allergies Allergy/AdvReac Type Severity Reaction Status Date / Time No Known Allergies Allergy Verified 03/30/17 16:53 Home Medications: Ambulatory Orders Gabapentin [Neurontin -] 600 mg PO TID 05/30/16 Furosemide [Lasix] 40 mg PO DAILY #3 tablet 06/23/16 Oxycodone HCl 20 mg PO Q6H PRN #120 tablet MDD 80mg 01/24/17 Cyclobenzaprine HCl [Flexeril -] 10 mg PO TID 03/25/17 Levetiracetam [Keppra -] 500 mg PO BID 03/25/17 Cephalexin [Keflex] 500 mg PO BID #8 capsule 03/27/17 Folic Acid - 1 mg PO DAILY #30 tablet 03/27/17 Lactobacillus Acidophilus [Probiotic] 1 each PO DAILY #10 capsule 03/27/17 Tamsulosin HCl [Flomax -] 0.4 mg PO DAILY@0830 #30 cap.er.24h 03/27/17 Thiamine HCl [Vitamin B1 -] 100 mg PO HS #30 tablet 03/27/17 Review of Systems - Review of Systems Able to Perform ROS?: Yes Comments:: 03/30/17 20:02 GENERAL/CONSTITUTIONAL: No fever or chills. No weakness. HEAD, EYES, EARS, NOSE AND THROAT: No change in vision. No ear pain or discharge. No sore throat.- CARDIOVASCULAR: No chest pain or shortness of breath RESPIRATORY: No cough, wheezing, or hemoptysis. GASTROINTESTINAL: No nausea, vomiting, diarrhea or constipation. GENITOURINARY: No dysuria, frequency, or change in urination. MUSCULOSKELETAL: No joint or muscle swelling or pain. No neck or back pain. EXTREMITIES: (+) Bilateral lower extremity swelling, erythema and pain. SKIN: No rash NEUROLOGIC: No headache, vertigo, loss of consciousness, or change in strength/ sensation. ENDOCRINE: No increased thirst. No abnormal weight change HEMATOLOGIC/LYMPHATIC: No anemia, easy bleeding, or history of blood clots. ALLERGIC/IMMUNOLOGIC: No hives or skin allergy. <Lombert,Miky Dina - Last Filed: 03/30/17 20:02> *Physical Exam - Vital Signs Last Vital Signs Temp Pulse Resp BP Pulse Ox 98.2 F 101 H 20 107/71 98 03/30/17 16:50 03/30/17 16:50 03/30/17 16:50 03/30/17 16:50 03/30/17 16:50 - Physical Exam Comments: 03/30/17 20:02 GENERAL: Awake, alert, and fully oriented, in no acute distress HEAD: No signs of trauma, normocephalic, atraumatic EYES: PERRLA, EOMI, sclera anicteric, conjunctiva clear ENT: Auricles normal inspection, hearing grossly normal, nares patent, oropharynx clear without exudates. Moist mucosa NECK: Normal ROM, supple, no lymphadenopathy, JVD, or masses LUNGS: No distress, speaks full sentences, clear to auscultation bilaterally HEART: Regular rate and rhythm, normal S1 and S2, no murmurs, rubs or gallops, peripheral pulses normal and equal bilaterally. ABDOMEN: Soft, nontender, normoactive bowel sounds. No guarding, no rebound. No masses EXTREMITIES : (+) Bilateral lower extremity pitting edema with erythema. No clubbing or cyanosis. NEUROLOGICAL: Cranial nerves II through XII grossly intact. Normal speech, normal gait, no focal sensorimotor deficits SKIN: Warm, Dry, normal turgor, no rashes or lesions noted. <KobeMikyvictoria Arroyo - Last Filed: 03/30/17 20:02> - Vital Signs Last Vital Signs Temp Pulse Resp BP Pulse Ox 98.2 F 101 H 20 107/71 98 03/30/17 16:50 03/30/17 16:50 03/30/17 16:50 03/30/17 16:50 03/30/17 16:50 <Kera Sung - Last Filed: 03/30/17 23:26> ED Treatment Course - LABORATORY CBC & Chemistry Diagram: 03/30/17 18:00 03/30/17 18:00 - ADDITIONAL ORDERS Additional order review: Laboratory Results 03/30/17 03/30/17 18:00 18:00 Sodium 135 L Potassium 4.4 Chloride 97 L Carbon Dioxide 32 Anion Gap 6 L BUN 10 Creatinine 0.7 Creat Clearance w eGFR > 60 Random Glucose 95 D Calcium 8.3 L Total Bilirubin 0.6 D AST 42 H ALT 27 Alkaline Phosphatase 183 H B-Natriuretic Peptide 30.04 Total Protein 7.2 Albumin 3.1 L 03/30/17 18:00 RBC 3.96 L MCV 100.1 H MCHC 33.5 RDW 14.1 MPV 7.6 Neutrophils % No Result Required. Lymphocytes % No Result Required. <Miky Bullock - Last Filed: 03/30/17 20:02> - LABORATORY CBC & Chemistry Diagram: 03/30/17 18:00 03/30/17 18:00 <Kera Sung - Last Filed: 03/30/17 23:26> Medical Decision Making - Medical Decision Making 03/30/17 23:24 46-year-old male discharged from this hospital on March 27 after being treated for cellulitis. He presents today because he felt that his legs were more swollen and they're concerned. He states that he does take his Lasix. 3. He denied fever, chills, productive cough or chest pain Patient's labs were reviewed. CBC was unremarkable. Duplex Dopplers of both his legs were negative for any deep vein thrombosis. Patient is not finished taking his antibiotics and he was encouraged to take all of them Spoke with covering physician for Dr. Rush and the patient will follow-up in the office this week <Kera Sung - Last Filed: 03/30/17 23:26> *DC/Admit/Observation/Transfer - Attestations Scribe Attestion: 03/30/17 20:04 Documentation prepared by Miky Bullock, acting as medical associate for Kera Sung MD <Miky Bullock - Last Filed: 03/30/17 20:02> <Kera Sung - Last Filed: 03/30/17 23:26> Diagnosis at time of Disposition: GOOD - Discharge Dispostion Disposition: HOME Condition at time of disposition: Stable - Referrals Referrals: Neil Rush MD [Primary Care Provider] - - Patient Instructions Printed Discharge Instructions: DI for Peripheral Edema -- Bilateral Additional Instructions: See your doctor this week
[2017-03-30 18:11] LABS: MCH 33.6 pg (25.7-33.7); MCHC 33.5 g/dl (32.0-35.9); MEAN CELL VOLUME 100.1 fl (80-96); MEAN PLT VOLUME 7.6 fl (7.5-11.1); PLATELET COUNT 127 K/MM3 (134-434); RDW 14.1 % (11.9-15.9); WHITE BLOOD COUNT 5.6 K/mm3 (4.0-10.0)
[2017-03-30 18:42] LABS: ALBUMIN 3.1 g/dl (3.4-5.0); ALK PHOS 183 U/L (45-117); ANION GAP 6 (8-16); BILIRUBIN,TOTAL 0.6 mg/dL (0.2-1.0); CALCIUM 8.3 mg/dL (8.5-10.1); CO2 32 mmol/L (21-32); CREATININE 0.7 mg/dL (0.7-1.3); GLUCOSE,RANDOM 95 mg/dL (74-106); SGOT/AST 42 U/L (15-37); SGPT/ALT 27 U/L (12-78); TOT PROT 7.2 g/dl (6.4-8.2)
[2017-03-30 18:57] LABS: REACTIVE LYMPHOCYTES 2 % (0-80); SMUDGE CELLS FEW
[2017-03-30 18:58] LABS: PLATELET COMMENTS NO CLOTTING DETECTED; PLATELET ESTIMATE SLT DECREASE
[2017-03-30] MEDS ORDERED: FUROSEMIDE 20 MG TABLET (FP) PO ONE (20:44)
[2017-03-30] MEDS ORDERED: CEPHALEXIN MONOHYDRATE 500 MG CAPSULE (UD) PO STA (20:51)
[2017-03-30] MEDS ORDERED: FUROSEMIDE 40 MG TABLET (FP) ONE (20:56)
[2017-03-30] MEDS ORDERED: CEPHALEXIN MONOHYDRATE 250 MG CAPSULE (FP) ONE (20:56)
[2017-03-30] MEDS ORDERED: FUROSEMIDE 40 MG TABLET (FP) PO ONE (21:01)
== END 2017-03-30 21:00 | disposition home or self-care (01) ==
LOC: JER 16:49
DX: M79.89 Other specified soft tissue disorders (principal); K76.0 Fatty (change of) liver, not elsewhere classified; F99 Mental disorder, not otherwise specified
CPT/HCPCS: 36415; 80053; 83880; 85025; 93970-TC; 99281-25

== ENCOUNTER 2017-04-02 14:17 | Inpatient (IN) | payer OTHER ==
[2017-04-02 14:22] VITALS: BMI 35.5
--- NOTE | 2017-04-02 14:25 | PDOC ---
Rapid Medical Evaluation Time Seen by Provider: 04/02/17 14:19 Medical Evaluation: Allergies Allergy/AdvReac Type Severity Reaction Status Date / Time No Known Allergies Allergy Verified 03/30/17 16:53 04/02/17 14:19 The patient presents with a chief complaint of: Leg/ankle pain bilaterally. States he was sent by 's office for admission for cellulitis/edema? Hx of cirrohsis, fatty liver, alcoholism Last drink this mornin Heinkein's, one carolyn mendes shot I have performed a brief in-person evaluation of this patient; Pertinent physical exam findings: 3+ pitting edema, course lung sounds b/l, bruising on abdomen I have ordered the following: CBC, CMP, PT/INR, BNP, Blood cx, UA, EKG, CXR The patient will proceed to the ED for further evaluation.
[2017-04-02 14:54] LABS: BASO % 0.7 % (0-2.0); EOS % 2.7 % (0-4.5); MCH 32.6 pg (25.7-33.7); MCHC 32.7 g/dl (32.0-35.9); MEAN CELL VOLUME 99.6 fl (80-96); MEAN PLT VOLUME 7.4 fl (7.5-11.1); NEUT % 58.5 % (42.8-82.8); PLATELET COUNT 155 K/MM3 (134-434); RDW 13.6 % (11.9-15.9); WHITE BLOOD COUNT 8.1 K/mm3 (4.0-10.0)
[2017-04-02 15:10] LABS: INR 1.18 (0.82-1.09); PROTHROMBIN TIME (PATIENT) 13.3 SEC (9.98-11.88)
[2017-04-02 15:17] LABS: ANION GAP 9 (8-16); CALCIUM 8.3 mg/dL (8.5-10.1); CO2 30 mmol/L (21-32); CREATININE 0.6 mg/dL (0.7-1.3); GLUCOSE,RANDOM 51 mg/dL (74-106); SGOT/AST 47 U/L (15-37); SGPT/ALT 31 U/L (12-78)
[2017-04-02 15:19] LABS: ALK PHOS 222 U/L (45-117); BILIRUBIN,TOTAL 0.7 mg/dL (0.2-1.0); TOT PROT 7.3 g/dl (6.4-8.2)
--- NOTE | 2017-04-02 15:19 | PDOC ---
Attending Attestation - Resident Resident Name: Carlos Brown - ED Attending Attestation I have performed the following: I have examined & evaluated the patient, The case was reviewed & discussed with the resident, I agree w/resident's findings & plan, Exceptions are as noted - HPI HPI: 04/02/17 16:03 46yo male with LE edema - sent by Dr. Rush for admissin for iv diuretics. 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 Dalila Chen, DO, attest that this document has been prepared under my direction and personally reviewed by me in its entirety. I further attest, that it accurately reflects all work, treatment, procedures and medical decision -making performed by me. 04/02/17 16:09 a/p: 46yo male with LE edema -will start IV lasix -will check labs -etoh level -will admit to dr. patel 04/02/17 16:[address] patel who accepts pt to service
[2017-04-02] MEDS ORDERED: FOLIC ACID INJECTION - 1 MG, THIAMINE HCL 100 MG, MULTIVIT INJECTION ADULT 10 ML in SOD... IVPB ONE (15:36)
[2017-04-02] MEDS ORDERED: FUROSEMIDE 40 MG/4 ML INJECTABLE VIAL IVPUSH ONE (15:36)
[2017-04-02] MEDS ORDERED: DEXTROSE 50%-WATER - 25 GM/50 ML VIAL IVPUSH ONE (15:38)
[2017-04-02 15:40] LABS: URINE APPEARANCE CLEAR; URINE BILIRUBIN NEGATIVE (NEGATIVE); URINE BLOOD NEGATIVE (NEGATIVE); URINE COLOR LTYELLOW; URINE GLUCOSE (UA) NEGATIVE (NEGATIVE); URINE KETONE NEGATIVE (NEGATIVE); URINE NITRITE NEGATIVE (NEGATIVE); URINE PROTEIN NEGATIVE (NEGATIVE)
[2017-04-02] MEDS ORDERED: DEXTROSE 50%-WATER 25 GM/50 ML DISP.SYRIN ONE (15:47)
[2017-04-02] MEDS ORDERED: FUROSEMIDE 40 MG/4 ML INJECTABLE VIAL ONE (15:47)
--- NOTE | 2017-04-02 15:48 | PDOC ---
History of Present Illness - General Chief Complaint: Edema Stated Complaint: PCP: SENT Time Seen by Provider: 04/02/17 14:19 History Source: Patient, Other (Call in by physician) Exam Limitations: No Limitations - History of Present Illness Initial Comments: 04/02/17 15:41 The patient is a 46M with a PMH of EtOH abuse, cirrhosis, severe b/l LE edema and cellulitis, d/c 03/27 from our hospital who presents to the ED from Dr. Rush 's office for worsening LE edema. The patient is currently intoxicated. The patient was discharged on lasix and antibiotics but states that he never got his lasix and hasn't taken any since his discharge. He denies any complaints of fever, chills, nausea, vomiting, rash, CP, SOB. Past History - Past Medical History Allergies/Adverse Reactions: Allergies Allergy/AdvReac Type Severity Reaction Status Date / Time No Known Allergies Allergy Verified 04/02/17 14:22 Home Medications: Ambulatory Orders Gabapentin [Neurontin -] 600 mg PO TID 05/30/16 Furosemide [Lasix] 40 mg PO DAILY #3 tablet 06/23/16 Oxycodone HCl 20 mg PO Q6H PRN #120 tablet MDD 80mg 01/24/17 Cyclobenzaprine HCl [Flexeril -] 10 mg PO TID 03/25/17 Levetiracetam [Keppra -] 500 mg PO BID 03/25/17 Folic Acid - 1 mg PO DAILY #30 tablet 03/27/17 Lactobacillus Acidophilus [Probiotic] 1 each PO DAILY #10 capsule 03/27/17 Tamsulosin HCl [Flomax -] 0.4 mg PO DAILY@0830 #30 cap.er.24h 03/27/17 Thiamine HCl [Vitamin B1 -] 100 mg PO HS #30 tablet 03/27/17 Anemia: No Asthma: No Cancer: No Cardiac Disorders: No CVA: No COPD: No CHF: No DVT: No Dementia: No Diabetes: No GI Disorders: No Disorders: No HTN: No Hypercholesterolemia: No Kidney Stones: No Liver Disease: Yes (fatty liver, CIRRHOSIS) Psychiatric Problems: Yes (ANXIETY) Seizures: No Thyroid Disease: No - Surgical History Abdominal Surgery: Yes (LAP BAND 2009/umbilical hernia repaired 2013) Appendectomy: No Cardiac Surgery: No Cholecystectomy: No GI Surgery: Yes (hernia repair) Lung Surgery: No Neurologic Surgery: No Orthopedic Surgery: Yes (ARTHROSCOPY LEFT SHOULDER 2012) - Reproductive History Testicular Surgery: No - Immunization History Immunization Up to Date: Yes - Suicide/Smoking/Psychosocial Hx Smoking Status: No Smoking History: Never smoked Have you smoked in the past 12 months: No Number of Cigarettes Smoked Daily: 1 Cigars Per Day: 1 Information on smoking cessation initiated: No 'Breaking Loose' booklet given: 01/23/17 Hx Alcohol Use: Yes (FREQ) Drug/Substance Use Hx: No Substance Use Type: None Hx Substance Use Treatment: Yes ([facility] detox from alcohol) Review of Systems - Review of Systems Able to Perform ROS?: Yes (Intoxicated) Is the patient limited Djib[place]ian proficient: No Constitutional: No: Chills, Fever HEENTM: No: Eye Pain, Recent change in vision Respiratory: No: Cough, Shortness of Breath Cardiac (ROS): No: Chest Pain, Lightheadedness ABD/GI: No: Constipated, Diarrhea, Nausea, Vomiting : No: Burning, Dysuria Musculoskeletal: No: Back Pain, Muscle Pain Neurological: No: Headache, Numbness, Tingling, Weakness Hematologic/Lymphatic: No: Anemia, Blood Clots *Physical Exam - Vital Signs Last Vital Signs Temp Pulse Resp BP Pulse Ox 98.2 F 111 H 20 120/60 97 04/02/17 14:18 04/02/17 14:18 04/02/17 14:18 04/02/17 14:18 04/02/17 14:18 - Physical Exam Comments: 04/02/17 15:50 GENERAL: Well developed, well nourished. Awake and alert. Intoxicated. No acute distress. HEENT: Normocephalic, atraumatic. Hearing grossly normal. Moist mucous membranes. NECK: Supple. Full ROM. No JVD. Carotid pulses 2+ and symmetric, without bruits. No thyromegaly. No lymphadenopathy. CARDIOVASCULAR: Tachycardic with regular rhythm. No murmurs, rubs, or gallops. Distal pulses are 2+ and symmetric. PULMONARY: No evidence of respiratory distress. Lungs clear to auscultation bilaterally. No wheezing, rales or rhonchi. ABDOMINAL: Soft. Non-tender. Non-distended. No rebound or guarding. No organomegaly. Normoactive bowel sounds. GENITOURINARY: No CVA tenderness bilaterally. MUSCULOSKELETAL: Normal range of motion at all joints. No bony deformities or tenderness. EXTREMITIES: No cyanosis. No clubbing. 3+ edema in b/l LE. No calf tenderness. SKIN: Warm and dry. Normal capillary refill. No rashes. No jaundice. NEUROLOGICAL: Alert, awake, appropriate. Cranial nerves 2-12 intact. Normal speech. Gait is normal without ataxia. PSYCHIATRIC: Cooperative. Good eye contact. Appropriate mood and affect. ED Treatment Course - LABORATORY CBC & Chemistry Diagram: 04/02/17 14:30 04/02/17 14:30 - ADDITIONAL ORDERS Additional order review: Laboratory Results 04/02/17 04/02/17 04/02/17 14:30 14:30 14:30 PT with INR 13.30 H INR 1.18 H Sodium 138 Potassium 4.2 Chloride 99 Carbon Dioxide 30 Anion Gap 9 BUN 6 L D Creatinine 0.6 L Creat Clearance w eGFR > 60 Random Glucose 51 L D Calcium 8.3 L Total Bilirubin 0.7 AST 47 H ALT 31 Alkaline Phosphatase 222 H D B-Natriuretic Peptide 40.87 Total Protein 7.3 Albumin 3.0 L 04/02/17 14:30 RBC 4.20 MCV 99.6 H MCHC 32.7 RDW 13.6 MPV 7.4 L Neutrophils % 58.5 Lymphocytes % 19.1 Monocytes % 19.0 H Eosinophils % 2.7 Basophils % 0.7 Medical Decision Making - Medical Decision Making 04/02/17 15:51 The patient is a 46M with a PMH of EtOh abuse, seizures, and cirrhosis who presents to the ED from his PCP's for evaluation of worsening b/l LE. He is afebrile, no WBC count, and does not have an erythematous rash on his legs, indicating low likelihood for antibiotics. He recently had a full CHF workup including negative DVT's in LE's. I have ordered lasix for him and will give him a banana bag to replenish electrolytes. Pending alcohol level and UA. I have spoken with Dr. Hanley who accepts a med-surg admission. Will place orders. *DC/Admit/Observation/Transfer Diagnosis at time of Disposition: Alcohol dependence, episodic drinking behavior, Alcohol dependence with uncomplicated withdrawal, Alcohol abuse, Alcoholism, Edema extremities Cirrhosis Qualifiers: Hepatic cirrhosis type: alcoholic cirrhosis Ascites presence: without ascites Qualified Code(s): K70.30 - Alcoholic cirrhosis of liver without ascites - Discharge Dispostion Condition at time of disposition: Stable Admit: Yes - Referrals - Patient Instructions - Post Discharge Activity
[2017-04-02] MEDS ORDERED: ONDANSETRON 4 MG/2 ML VIAL IVPUSH PRN (15:54)
--- NOTE | 2017-04-02 16:00 | HP ---
Admitting History and Physical - Primary Care Physician PCP: Neil Rush - Admission Chief Complaint: I'm swollen History of Present Illness: Mr Blount is a 46 year old male who was recently here for cellulitis that returns from the office with BLE edema. On his last admission he was treated with both antibiotics and his home dose of lasix, and both cellulitis resolved and edema improved. On discharge he resumed drinking and did not take his lasix. He presented to Dr Rush and was found to have very swollen legs. He was recommended to come here to the hospital for admission, however before presenting to the ED he stopped and had some beer and a shot of liquor. He comes in complaining of leg swelling. He says it is worsening and making it difficult to walk. He has his complaint of chronic pain but the pain in his legs are worsening. He is not having erythema or weeping. He denies fevers, chills, lightheadedness, dizziness, chest pain, shortness of breath, nausea, vomiting, diarrhea, constipation, difficulty or pain on urination, or paresthesias. History Source: Patient Limitations to Obtaining History: No Limitations - Past Medical History POULTRY VACCINATOR: Yes: Seizure (questionable vs pseudoseizures ) Cardiovascular: Yes: HTN Pulmonary: Yes: Sleep Apnea Hepatobiliary: Yes: Cirrhosis Psych: Yes: Addictions (alcohol) Musculoskeletal: Yes: Chronic low back pain - Past Surgical History Past Surgical History: Yes: Arthrosocopy (left shoulder, right knee), Bariatric Surgery (gastric band) - Smoking History Smoking history: Never smoked Have you smoked in the past 12 months: No Aproximately how many cigarettes per day: 1 - Alcohol/Substance Use Hx Alcohol Use: Yes (FREQ) Number of Drinks Daily: 5 History of Substance Use: reports: None Date of Last Use: 03/24/17 - Social History Usual Living Arrangement: Yes: Alone ADL: Independent 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 of Recent Travel: No Home Medications - Allergies Allergies/Adverse Reactions: Allergies Allergy/AdvReac Type Severity Reaction Status Date / Time No Known Allergies Allergy Verified 04/02/17 14:22 - Home Medications Home Medications: Ambulatory Orders Gabapentin [Neurontin -] 600 mg PO TID 05/30/16 Furosemide [Lasix] 40 mg PO DAILY #3 tablet 06/23/16 Oxycodone HCl 20 mg PO Q6H PRN #120 tablet MDD 80mg 01/24/17 Cyclobenzaprine HCl [Flexeril -] 10 mg PO TID 03/25/17 Levetiracetam [Keppra -] 500 mg PO BID 03/25/17 Folic Acid - 1 mg PO DAILY #30 tablet 03/27/17 Lactobacillus Acidophilus [Probiotic] 1 each PO DAILY #10 capsule 03/27/17 Tamsulosin HCl [Flomax -] 0.4 mg PO DAILY@0830 #30 cap.er.24h 03/27/17 Thiamine HCl [Vitamin B1 -] 100 mg PO HS #30 tablet 03/27/17 Family Disease History - Family Disease History Family Disease History: Other: Father (Alive: 65 alcoholic), Mother (Alive: 62: healthy), Brother (Alive: Healthy), Sister (Alive: Healthy), Son (Healthy), Daughter (Healthy) Review of Systems Findings/Remarks: Full review of systems obtained, as per HPI and otherwise negative Physical Examination Vital Signs: Vital Signs Temperature 36.8 C 04/02/17 14:18 Pulse Rate 111 H 04/02/17 14:18 Respiratory Rate 20 04/02/17 14:18 Blood Pressure 120/60 04/02/17 14:18 O2 Sat by Pulse Oximetry (%) 97 04/02/17 14:18 Constitutional: Yes: Well Nourished, No Distress, Calm Eyes: Yes: Conjunctiva Clear, EOM Intact, PERRL HENT: Yes: Atraumatic, Normocephalic Cardiovascular: Yes: Regular Rate and Rhythm. No: Gallop, Murmur, Rub Respiratory: Yes: Regular, CTA Bilaterally. No: Rales, Rhonchi, Wheezes Gastrointestinal: Yes: Normal Bowel Sounds, Soft. No: Distention, Tenderness Extremities: Yes: WNL Edema: Yes Edema: LLE: 3+, RLE: 3+ Labs: CBC, BMP 04/02/17 14:30 04/02/17 14:30 Imaging - Results Chest X-ray: Report Reviewed Problem List - Problems (1) Edema extremities Assessment/Plan: -patient with worsening lower extremity edema after not taking outpatient lasix -had work up last admission, no clot or CHF -secondary to alcohol abuse with decreased oncotic pressure -admit to the hospital, patient unreliable currently to manage worsening edema -lasix 40mg IV bid -I/Os -expect improvement within 48 hours -plan to discharge on lasix 40mg bid and reassessment with Dr Rush to see if can decrease to 40mg daily Code(s): R60.0 - LOCALIZED EDEMA (2) Alcohol dependence with uncomplicated withdrawal Assessment/Plan: -again counselled on alcohol cessation -patient expresses disinterest in stopping, quotes he is depressed -will place on prn librium Code(s): F10.230 - ALCOHOL DEPENDENCE WITH WITHDRAWAL, UNCOMPLICATED (3) Cirrhosis Assessment/Plan: -counselled alcohol cessation -outpatient management Code(s): K74.60 - UNSPECIFIED CIRRHOSIS OF LIVER Qualifiers: Hepatic cirrhosis type: alcoholic cirrhosis Ascites presence: without ascites Qualified Code(s): K70.30 - Alcoholic cirrhosis of liver without ascites (4) BPH (benign prostatic hyperplasia) Assessment/Plan: -continue tamsulosin Code(s): N40.0 - BENIGN PROSTATIC HYPERPLASIA WITHOUT LOWER URINRY TRACT SYMP (5) Chronic pain Assessment/Plan: -continue home oxycodone regimen without change Code(s): G89.29 - OTHER CHRONIC PAIN (6) Seizure Assessment/Plan: -continue keppra Code(s): R56.9 - UNSPECIFIED CONVULSIONS
[2017-04-02 17:59] LABS: URINE LEUK ESTERASE Negative (NEGATIVE)
[2017-04-02] MEDS: levETIRAcetam 500 MG TABLET (FP) PO SCH (22:03)
[2017-04-02] MEDS: GABAPENTIN 300 MG CAPSULE (FP) PO SCH (22:03)
[2017-04-02] MEDS: CYCLOBENZAPRINE HCL 10 MG TABLET (FP) PO SCH (22:03)
[2017-04-02] MEDS: THIAMINE HCL 100 MG TABLET (FP) PO SCH (22:03)
[2017-04-02] MEDS: DOCUSATE SODIUM 100 MG CAPSULE (FP) PO SCH (22:03)
[2017-04-02] MEDS: oxyCODONE HCL 5 MG TABLET PO PRN (22:06)
[2017-04-03] MEDS: CYCLOBENZAPRINE HCL 10 MG TABLET (FP) PO SCH ×3 (05:59→21:33)
[2017-04-03] MEDS: FUROSEMIDE 40 MG/4 ML INJECTABLE VIAL IVPUSH SCH ×2 (05:59→14:07)
[2017-04-03] MEDS: GABAPENTIN 300 MG CAPSULE (FP) PO SCH ×3 (05:59→21:33)
[2017-04-03 08:10] LABS: BASO % 0.6 % (0-2.0); EOS % 4.8 % (0-4.5); MCHC 33.5 g/dl (32.0-35.9); MEAN CELL VOLUME 98.4 fl (80-96); MEAN PLT VOLUME 7.5 fl (7.5-11.1); NEUT % 45.4 % (42.8-82.8); PLATELET COUNT 161 K/MM3 (134-434); RDW 13.3 % (11.9-15.9); WHITE BLOOD COUNT 6.2 K/mm3 (4.0-10.0)
[2017-04-03 08:37] LABS: ANION GAP 8 (8-16); CALCIUM 8.7 mg/dL (8.5-10.1); CO2 30 mmol/L (21-32); CREATININE 0.6 mg/dL (0.7-1.3); GLUCOSE,RANDOM 86 mg/dL (74-106); MAGNESIUM 1.7 mg/dL (1.8-2.4); PHOSPHOROUS 3.1 mg/dL (2.5-4.9)
[2017-04-03] MEDS: ACETAMINOPHEN 325 MG TABLET (FP) PO PRN ×2 (10:27→17:00)
[2017-04-03] MEDS: oxyCODONE HCL 5 MG TABLET PO PRN ×2 (10:28→17:01)
[2017-04-03] MEDS: FOLIC ACID 1 MG TABLET (FP) PO SCH (10:30)
[2017-04-03] MEDS: LACTOBACILLUS ACIDOPHILUS 1 EACH TAB (FP) PO SCH (10:30)
[2017-04-03] MEDS: levETIRAcetam 500 MG TABLET (FP) PO SCH ×2 (10:30→21:33)
[2017-04-03] MEDS: DOCUSATE SODIUM 100 MG CAPSULE (FP) PO SCH ×2 (10:30→21:32)
[2017-04-03] MEDS: ENOXAPARIN NA (PORCINE) 40 MG/0.4 ML DISP.SYRIN SQ SCH (10:30)
[2017-04-03] MEDS: TAMSULOSIN HCL 0.4 MG CAP.ER.24H (FP) PO SCH (10:31)
[2017-04-03] MEDS: POLYETHYLENE GLYCOL 3350 119 GM BTL PO SCH (12:01)
--- NOTE | 2017-04-03 12:27 | PN ---
Progress Note, Physician Chief Complaint: Mr Blount says his legs are still swollen but improved, RLE more improved than LLE. No cp, sob, n/v. - Current Medication List Current Medications: Active Medications Acetaminophen (Tylenol -) 650 mg PO Q4H PRN PRN Reason: FEVER OR PAIN Last Admin: 04/03/17 10:27 Dose: 650 mg Chlordiazepoxide HCl (Librium -) 25 mg PO Q4H PRN PRN Reason: WITHDRAWAL(CONT SUBST) Stop: 04/05/17 15:56 Cyclobenzaprine HCl (Flexeril -) 10 mg PO TID [facility] Last Admin: 04/03/17 05:59 Dose: 10 mg Docusate Sodium (Colace -) 100 mg PO BID [facility] Last Admin: 04/03/17 10:30 Dose: 100 mg Enoxaparin Sodium (Lovenox -) 40 mg SQ DAILY [facility] Last Admin: 04/03/17 10:30 Dose: 40 mg Folic Acid (Folic Acid -) 1 mg PO DAILY [facility] Last Admin: 04/03/17 10:30 Dose: 1 mg Furosemide (Lasix Injection -) 40 mg IVPUSH BIDLASIX [facility] Last Admin: 04/03/17 05:59 Dose: 40 mg Gabapentin (Neurontin -) 600 mg PO TID [facility] Last Admin: 04/03/17 05:59 Dose: 600 mg Lactobacillus Acidophilus (Bacid -) 1 tab PO DAILY [facility] Last Admin: 04/03/17 10:30 Dose: 1 tab Levetiracetam (Keppra -) 500 mg PO BID [facility] Last Admin: 04/03/17 10:30 Dose: 500 mg Magnesium Oxide (Mag-Ox -) 800 mg PO ONCE ONE Stop: 04/03/17 12:27 Ondansetron HCl (Zofran Injection) 4 mg IVPUSH Q6H PRN PRN Reason: NAUSEA Oxycodone HCl (Roxicodone -) 20 mg PO Q6H PRN PRN Reason: PAIN Last Admin: 04/03/17 10:28 Dose: 20 mg Polyethylene Glycol (Miralax (For Daily Use) -) 17 gm PO DAILY [facility] Last Admin: 04/03/17 12:01 Dose: Not Given Spironolactone (Aldactone -) 25 mg PO DAILY [facility] Tamsulosin HCl (Flomax -) 0.4 mg PO DAILY@0830 [facility] Last Admin: 04/03/17 10:31 Dose: 0.4 mg Thiamine HCl (Vitamin B1 -) 100 mg PO HS [facility] Last Admin: 04/02/17 22:03 Dose: 100 mg - Objective Vital Signs: Vital Signs Temperature 36.6 C 04/03/17 06:00 Pulse Rate 90 04/03/17 06:00 Respiratory Rate 116 H 04/03/17 06:00 Blood Pressure 115/85 04/03/17 06:00 O2 Sat by Pulse Oximetry (%) 98 04/02/17 22:00 Constitutional: Yes: Well Nourished, No Distress, Calm Cardiovascular: No: Gallop, Murmur, Rub Respiratory: Yes: Regular, CTA Bilaterally. No: Rales, Rhonchi, Wheezes Gastrointestinal: Yes: Normal Bowel Sounds, Soft. No: Distention, Tenderness Extremities: Yes: WNL Edema: Yes Edema: LLE: 3+, RLE: 3+ Labs: CBC, BMP 04/03/17 06:00 04/03/17 06:00 INR, PTT INR 1.18 (0.82-1.09) H 04/02/17 14:30 Problem List - Problems (1) Edema extremities Code(s): R60.0 - LOCALIZED EDEMA (2) Alcohol dependence with uncomplicated withdrawal Code(s): F10.230 - ALCOHOL DEPENDENCE WITH WITHDRAWAL, UNCOMPLICATED (3) Cirrhosis Code(s): K74.60 - UNSPECIFIED CIRRHOSIS OF LIVER Qualifiers: Hepatic cirrhosis type: alcoholic cirrhosis Ascites presence: without ascites Qualified Code(s): K70.30 - Alcoholic cirrhosis of liver without ascites (4) BPH (benign prostatic hyperplasia) Code(s): N40.0 - BENIGN PROSTATIC HYPERPLASIA WITHOUT LOWER URINRY TRACT SYMP (5) Chronic pain Code(s): G89.29 - OTHER CHRONIC PAIN (6) Seizure Code(s): R56.9 - UNSPECIFIED CONVULSIONS (7) Hypokalemia Code(s): E87.6 - HYPOKALEMIA (8) Hypomagnesemia Code(s): E83.42 - HYPOMAGNESEMIA Assessment/Plan (1) Edema extremities Assessment/Plan: -improving, continue lasix 40mg IV bid -will add aldactone while here as well -continue to monitor Code(s): R60.0 - LOCALIZED EDEMA (2) Alcohol dependence with uncomplicated withdrawal Assessment/Plan: -continue prn librium Code(s): F10.230 - ALCOHOL DEPENDENCE WITH WITHDRAWAL, UNCOMPLICATED (3) Cirrhosis Assessment/Plan: -counselled alcohol cessation -outpatient management Code(s): K74.60 - UNSPECIFIED CIRRHOSIS OF LIVER Qualifiers: Hepatic cirrhosis type: alcoholic cirrhosis Ascites presence: without ascites Qualified Code(s): K70.30 - Alcoholic cirrhosis of liver without ascites (4) BPH (benign prostatic hyperplasia) Assessment/Plan: -continue tamsulosin Code(s): N40.0 - BENIGN PROSTATIC HYPERPLASIA WITHOUT LOWER URINRY TRACT SYMP (5) Chronic pain Assessment/Plan: -continue home oxycodone regimen without change Code(s): G89.29 - OTHER CHRONIC PAIN (6) Seizure Assessment/Plan: -continue keppra Code(s): R56.9 - UNSPECIFIED CONVULSIONS (7) FEN -oral magnesium -trial of aldactone to improve both edema and hypokalemia
[2017-04-03] MEDS ORDERED: MAGNESIUM OXIDE 400 MG TABLET (FP) PO ONE (13:15)
[2017-04-03] MEDS: SPIRONOLACTONE 25 MG TABLET (FP) PO SCH (14:06)
--- NOTE | 2017-04-03 16:31 | EKG ---
Test Reason : Blood Pressure : / mmHG Vent. Rate : 105 BPM Atrial Rate : 105 BPM P-R Int : 160 ms QRS Dur : 102 ms QT Int : 358 ms P-R-T Axes : 055 042 040 degrees QTc Int : 473 ms SINUS TACHYCARDIA OTHERWISE NORMAL ECG WHEN COMPARED WITH ECG OF 12-FEB-2017 11:43, NO SIGNIFICANT CHANGE WAS FOUND Confirmed by JOHN KAHN MD ([id number]) on 04/03/2017 4:31:01 PM Referred By: Confirmed By:JOHN KAHN MD
[2017-04-03] MEDS ORDERED: ZOLPIDEM TARTRATE 5 MG TABLET PO PRN (19:27)
[2017-04-03] MEDS: THIAMINE HCL 100 MG TABLET (FP) PO SCH (21:33)
[2017-04-04] MEDS: FUROSEMIDE 40 MG/4 ML INJECTABLE VIAL IVPUSH SCH ×2 (06:12→14:36)
[2017-04-04] MEDS: GABAPENTIN 300 MG CAPSULE (FP) PO SCH ×3 (06:17→22:57)
[2017-04-04] MEDS: CYCLOBENZAPRINE HCL 10 MG TABLET (FP) PO SCH ×3 (06:17→22:57)
[2017-04-04 09:01] LABS: BASO % 0.7 % (0-2.0); EOS # 0.2 # (0-4.5); EOS % 4.6 % (0-4.5); MCH 32.5 pg (25.7-33.7); MCHC 32.9 g/dl (32.0-35.9); MEAN CELL VOLUME 98.7 fl (80-96); MEAN PLT VOLUME 7.7 fl (7.5-11.1); MONO # 0.9 # (3.8-10.2); NEUT # 1.8 # (42.8-82.8); NEUT % 36.5 % (42.8-82.8); PLATELET COUNT 155 K/MM3 (134-434); RDW 13.4 % (11.9-15.9); WHITE BLOOD COUNT 4.9 K/mm3 (4.0-10.0)
[2017-04-04 09:25] LABS: ANION GAP 6 (8-16); CALCIUM 8.4 mg/dL (8.5-10.1); CO2 32 mmol/L (21-32); CREATININE 0.6 mg/dL (0.7-1.3); GLUCOSE,RANDOM 119 mg/dL (74-106); MAGNESIUM 1.6 mg/dL (1.8-2.4); PHOSPHOROUS 4.1 mg/dL (2.5-4.9)
[2017-04-04] MEDS: oxyCODONE HCL 5 MG TABLET PO PRN ×3 (11:02→22:58)
[2017-04-04] MEDS: LACTOBACILLUS ACIDOPHILUS 1 EACH TAB (FP) PO SCH (11:03)
[2017-04-04] MEDS: levETIRAcetam 500 MG TABLET (FP) PO SCH ×2 (11:03→22:57)
[2017-04-04] MEDS: DOCUSATE SODIUM 100 MG CAPSULE (FP) PO SCH ×2 (11:03→22:57)
[2017-04-04] MEDS: TAMSULOSIN HCL 0.4 MG CAP.ER.24H (FP) PO SCH (11:04)
[2017-04-04] MEDS: ACETAMINOPHEN 325 MG TABLET (FP) PO PRN ×2 (11:04→17:32)
[2017-04-04] MEDS: FOLIC ACID 1 MG TABLET (FP) PO SCH (11:04)
[2017-04-04] MEDS: SPIRONOLACTONE 25 MG TABLET (FP) PO SCH (11:04)
[2017-04-04] MEDS: POLYETHYLENE GLYCOL 3350 119 GM BTL PO SCH (11:05)
[2017-04-04] MEDS: ENOXAPARIN NA (PORCINE) 40 MG/0.4 ML DISP.SYRIN SQ SCH (11:06)
--- NOTE | 2017-04-04 11:12 | PN ---
Progress Note, Physician Chief Complaint: Mr Blount says his legs are much improved. No cp, sob, n/v. - Current Medication List Current Medications: Active Medications Acetaminophen (Tylenol -) 650 mg PO Q4H PRN PRN Reason: FEVER OR PAIN Last Admin: 04/04/17 11:04 Dose: 650 mg Chlordiazepoxide HCl (Librium -) 25 mg PO Q4H PRN PRN Reason: WITHDRAWAL(CONT SUBST) Stop: 04/05/17 15:56 Cyclobenzaprine HCl (Flexeril -) 10 mg PO TID [facility] Last Admin: 04/04/17 06:17 Dose: 10 mg Docusate Sodium (Colace -) 100 mg PO BID [facility] Last Admin: 04/04/17 11:03 Dose: 100 mg Enoxaparin Sodium (Lovenox -) 40 mg SQ DAILY [facility] Last Admin: 04/04/17 11:06 Dose: 40 mg Folic Acid (Folic Acid -) 1 mg PO DAILY [facility] Last Admin: 04/04/17 11:04 Dose: 1 mg Furosemide (Lasix Injection -) 40 mg IVPUSH BIDLASIX [facility] Last Admin: 04/04/17 06:12 Dose: 40 mg Gabapentin (Neurontin -) 600 mg PO TID [facility] Last Admin: 04/04/17 06:17 Dose: 600 mg Lactobacillus Acidophilus (Bacid -) 1 tab PO DAILY [facility] Last Admin: 04/04/17 11:03 Dose: 1 tab Levetiracetam (Keppra -) 500 mg PO BID [facility] Last Admin: 04/04/17 11:03 Dose: 500 mg Magnesium Sulfate (Magnesium Sulfate) 2 gm IVPB ONCE ONE Stop: 04/04/17 10:58 Ondansetron HCl (Zofran Injection) 4 mg IVPUSH Q6H PRN PRN Reason: NAUSEA Oxycodone HCl (Roxicodone -) 20 mg PO Q6H PRN PRN Reason: PAIN Last Admin: 04/04/17 11:02 Dose: 20 mg Polyethylene Glycol (Miralax (For Daily Use) -) 17 gm PO DAILY [facility] Last Admin: 04/04/17 11:05 Dose: Not Given Potassium Chloride (K-Dur -) 40 meq PO ONCE ONE Stop: 04/04/17 10:57 Spironolactone (Aldactone -) 25 mg PO DAILY [facility] Last Admin: 12/22/17 11:04 Dose: 25 mg Tamsulosin HCl (Flomax -) 0.4 mg PO DAILY@0830 [facility] Last Admin: 04/04/17 11:04 Dose: 0.4 mg Thiamine HCl (Vitamin B1 -) 100 mg PO HS [facility] Last Admin: 04/03/17 21:33 Dose: 100 mg Zolpidem Tartrate (Ambien -) 5 mg PO HS PRN - Objective Vital Signs: Vital Signs Temperature 36.5 C 04/04/17 10:00 Pulse Rate 109 H 04/04/17 10:00 Respiratory Rate 18 04/04/17 10:00 Blood Pressure 119/70 04/04/17 10:00 O2 Sat by Pulse Oximetry (%) 98 04/03/17 21:00 Constitutional: Yes: Well Nourished, No Distress, Calm Cardiovascular: Yes: Regular Rate and Rhythm. No: Gallop, Murmur, Rub Respiratory: Yes: Regular, CTA Bilaterally. No: Rales, Rhonchi, Wheezes Gastrointestinal: Yes: Normal Bowel Sounds, Soft. No: Distention, Tenderness Extremities: Yes: WNL Edema: Yes Edema: LLE: 2+, RLE: 2+ Labs: CBC, BMP 04/04/17 08:00 04/04/17 08:00 INR, PTT INR 1.18 (0.82-1.09) H 04/02/17 14:30 Problem List - Problems (1) Edema extremities Code(s): R60.0 - LOCALIZED EDEMA (2) Alcohol dependence with uncomplicated withdrawal Code(s): F10.230 - ALCOHOL DEPENDENCE WITH WITHDRAWAL, UNCOMPLICATED (3) Cirrhosis Code(s): K74.60 - UNSPECIFIED CIRRHOSIS OF LIVER Qualifiers: Hepatic cirrhosis type: alcoholic cirrhosis Ascites presence: without ascites Qualified Code(s): K70.30 - Alcoholic cirrhosis of liver without ascites (4) BPH (benign prostatic hyperplasia) Code(s): N40.0 - BENIGN PROSTATIC HYPERPLASIA WITHOUT LOWER URINRY TRACT SYMP (5) Chronic pain Code(s): G89.29 - OTHER CHRONIC PAIN (6) Seizure Code(s): R56.9 - UNSPECIFIED CONVULSIONS (7) Hypokalemia Code(s): E87.6 - HYPOKALEMIA (8) Hypomagnesemia Code(s): E83.42 - HYPOMAGNESEMIA Assessment/Plan (1) Edema extremities Assessment/Plan: -much improved with addition of aldactone -continue lasix 40mg IV bid -plan for discharge tomorrow on lasix 40mg daily with follow up next week Code(s): R60.0 - LOCALIZED EDEMA (2) Alcohol dependence with uncomplicated withdrawal Assessment/Plan: -continue prn librium Code(s): F10.230 - ALCOHOL DEPENDENCE WITH WITHDRAWAL, UNCOMPLICATED (3) Cirrhosis Assessment/Plan: -counselled alcohol cessation -outpatient management Code(s): K74.60 - UNSPECIFIED CIRRHOSIS OF LIVER Qualifiers: Hepatic cirrhosis type: alcoholic cirrhosis Ascites presence: without ascites Qualified Code(s): K70.30 - Alcoholic cirrhosis of liver without ascites (4) BPH (benign prostatic hyperplasia) Assessment/Plan: -continue tamsulosin Code(s): N40.0 - BENIGN PROSTATIC HYPERPLASIA WITHOUT LOWER URINRY TRACT SYMP (5) Chronic pain Assessment/Plan: -continue home oxycodone regimen without change Code(s): G89.29 - OTHER CHRONIC PAIN (6) Seizure Assessment/Plan: -continue keppra Code(s): R56.9 - UNSPECIFIED CONVULSIONS (7) FEN -replace magnesium and potassium today Dispo -discharge tomorrow on lasix 40mg daily
[2017-04-04] MEDS ORDERED: MAGNESIUM SULF 50% (8.12 MEQ/2 ML-1 GM VIAL) IVPB ONE (11:45)
[2017-04-04] MEDS ORDERED: POTASSIUM CHLORIDE TABS 20 MEQ TABLET.ER (FP) PO ONE (11:45)
[2017-04-04] MEDS: chlordiazePOXIDE HCL 25 MG CAPSULE PO PRN ×2 (14:31→19:18)
[2017-04-04] MEDS: THIAMINE HCL 100 MG TABLET (FP) PO SCH (22:57)
[2017-04-05] MEDS: oxyCODONE HCL 5 MG TABLET PO PRN (04:45)
[2017-04-05] MEDS: CYCLOBENZAPRINE HCL 10 MG TABLET (FP) PO SCH ×2 (05:37→13:42)
[2017-04-05] MEDS: GABAPENTIN 300 MG CAPSULE (FP) PO SCH ×2 (05:37→13:42)
[2017-04-05] MEDS: FUROSEMIDE 40 MG/4 ML INJECTABLE VIAL IVPUSH SCH (05:37)
[2017-04-05 07:27] LABS: BASO # 0.1 # (0.1-1); BASO % 0.9 % (0-2.0); EOS # 0.3 # (0-4.5); EOS % 4.3 % (0-4.5); LYMPH # 2.8 (8-40); MCH 32.6 pg (25.7-33.7); MCHC 32.7 g/dl (32.0-35.9); MEAN CELL VOLUME 99.8 fl (80-96); MEAN PLT VOLUME 7.6 fl (7.5-11.1); MONO # 1.2 # (3.8-10.2); NEUT # 3.2 # (42.8-82.8); NEUT % 41.9 % (42.8-82.8); PLATELET COUNT 173 K/MM3 (134-434); RDW 13.6 % (11.9-15.9); WHITE BLOOD COUNT 7.6 K/mm3 (4.0-10.0)
[2017-04-05 07:57] LABS: ANION GAP 5 (8-16); CALCIUM 8.2 mg/dL (8.5-10.1); CO2 32 mmol/L (21-32); CREATININE 0.6 mg/dL (0.7-1.3); GLUCOSE,RANDOM 89 mg/dL (74-106); MAGNESIUM 1.8 mg/dL (1.8-2.4); PHOSPHOROUS 4.9 mg/dL (2.5-4.9)
[2017-04-05] MEDS: TAMSULOSIN HCL 0.4 MG CAP.ER.24H (FP) PO SCH (08:45)
--- NOTE | 2017-04-05 09:10 | DS ---
Physical Examination Vital Signs: Vital Signs Temperature 97.3 F L 04/05/17 06:00 Pulse Rate 82 04/05/17 06:00 Respiratory Rate 19 04/05/17 06:00 Blood Pressure 136/87 04/05/17 06:00 O2 Sat by Pulse Oximetry (%) 99 04/04/17 21:00 Constitutional: Yes: No Distress, Calm Eyes: No: Sclera Icterus Cardiovascular: Yes: Regular Rate and Rhythm Respiratory: Yes: CTA Bilaterally Neurological: Yes: Alert, Oriented Labs: CBC, BMP 04/05/17 07:00 04/05/17 07:00 Discharge Summary Reason For Visit: EDEMA OF EXTREMITY,ALCOHOL DEPENDENCE EPISODIC Current Active Problems Alcohol abuse (Chronic) Alcohol dependence, episodic drinking behavior (Chronic 11/03/13) Alcoholism (Chronic) Cirrhosis (Chronic) Hospital Course: See daily notes and problem list Follow up with Dr Rush Condition: Good - Instructions Diet, Activity, Other Instructions: Resume usual diet Follow-up with Dr Rush Disposition: HOME - Home Medications Comprehensive Discharge Medication List: Ambulatory Orders Gabapentin [Neurontin -] 600 mg PO TID 05/30/16 Furosemide [Lasix] 40 mg PO DAILY #3 tablet 06/23/16 Oxycodone HCl 20 mg PO Q6H PRN #120 tablet MDD 80mg 01/24/17 Cyclobenzaprine HCl [Flexeril -] 10 mg PO TID 03/25/17 Levetiracetam [Keppra -] 500 mg PO BID 03/25/17 Folic Acid - 1 mg PO DAILY #30 tablet 03/27/17 Lactobacillus Acidophilus [Probiotic] 1 each PO DAILY #10 capsule 03/27/17 Tamsulosin HCl [Flomax -] 0.4 mg PO DAILY@0830 #30 cap.er.24h 03/27/17 Thiamine HCl [Vitamin B1 -] 100 mg PO HS #30 tablet 03/27/17 Acetaminophen [Tylenol .Regular Strength -] 650 mg PO Q4H PRN tablet 04/05/17 Docusate Sodium [Colace -] 100 mg PO BID capsule 04/05/17 Polyethylene Glycol 3350 [Miralax 119 gm Btl -] 17 gm PO DAILY bottle 04/05/17 Spironolactone [Aldactone -] 25 mg PO DAILY #30 tablet 04/05/17
[2017-04-05] MEDS ORDERED: PT OWN MED DRAWER 7, Y5N ONE (09:18)
[2017-04-05] MEDS: DOCUSATE SODIUM 100 MG CAPSULE (FP) PO SCH (09:27)
[2017-04-05] MEDS: FOLIC ACID 1 MG TABLET (FP) PO SCH (09:27)
[2017-04-05] MEDS: levETIRAcetam 500 MG TABLET (FP) PO SCH (09:27)
[2017-04-05] MEDS: LACTOBACILLUS ACIDOPHILUS 1 EACH TAB (FP) PO SCH (09:27)
[2017-04-05] MEDS: SPIRONOLACTONE 25 MG TABLET (FP) PO SCH (09:27)
[2017-04-05] MEDS: POLYETHYLENE GLYCOL 3350 119 GM BTL PO SCH (09:28)
[2017-04-05] MEDS: ENOXAPARIN NA (PORCINE) 40 MG/0.4 ML DISP.SYRIN SQ SCH (09:28)
[2017-04-05 10:20] VITALS: BP 116/84; PULSE 88; TEMP 97.5
== END 2017-04-05 13:56 | disposition home or self-care (01) | DRG 280 ==
LOC: JER 14:17 → JERBED 15:58 → J8W 21:55
PROVIDERS: ADMIT Internal Medicine; ATTEND Internal Medicine
PROC: HZ2ZZZZ Detoxification Services for Substance Abuse Treatment (ICD-10-PCS; principal; 2017-04-02)
DX: K70.30 Alcoholic cirrhosis of liver without ascites (principal); F10.230 Alcohol dependence with withdrawal, uncomplicated; R60.0 Localized edema; N40.0 Benign prostatic hyperplasia without lower urinary tract symptoms; G89.29 Other chronic pain; R56.9 Unspecified convulsions; E87.6 Hypokalemia; E83.42 Hypomagnesemia
CPT/HCPCS: 36415; 71020-TC; 80048; 80053; 80307; 81003; 83735; 83880; 84100; 85025; 85610; 87040; 87086; 93005; 93010; 99283-25

== ENCOUNTER 2017-04-08 22:18 | Inpatient (IN) | payer OTHER ==
[2017-04-08 23:03] VITALS: BMI 35.5
--- NOTE | 2017-04-08 23:11 | HP ---
COWS - Scale Resting Pulse: 2= [place] 101-120 Sweatin= Beads of Sweat on Face Restless Observation: 5= Unable to Sit Still Pupil Size: 1= Pupils >than Normal Bone or Joint Aches: 4=Acute Joint/Muscle Pain Runny Nose/ Eye Tearin= Runny Nose/Eyes GI Upset > 30mins: 0= None Tremor Observation: 4= Gross Tremor/Twitching Yawning Observation: 0= None Anxiety or Irritability: 4=Extreme Anxiety Goose Flesh Skin: 0=Smooth Skin COWS Score: 25 CIWA Score - CIWA Score Nausea/Vomitin-No Nausea/No Vomiting Muscle Tremors: 5 Anxiety: 6 Agitation: 6 Paroxysmal Sweats: 5 Orientation: 0-Oriented Tacttile Disturbances: 0-None Auditory Disturbances: 0-None Visual Disturbances: 0-None Headache: 1-Very Mild CIWA-Ar Total Score: 23 Admission ROS S - HPI Chief Complaint: SEEKING DETOX FOR WITHDRAWAL SX'S Allergies/Adverse Reactions: Allergies Allergy/AdvReac Type Severity Reaction Status Date / Time No Known Allergies Allergy Verified 04/02/17 14:22 History of Present Illness: 46 Y.O. MALE WITH LONG HX/O ALCOHOLISM AND OPIATE DEPENDENCE HERE FOR DETOX. CLIENT WAS RECENTLY HOSPITALED FOR 3 DAYS AT [facility] FOR BLE SWELLING. HE WAS DC ON 04/05/17.WHILE HERE HIS ADDICITON WAS TREATED WITH PRN LIBRIUM. SINCE DC HE HAS BEEN DRINKING CONSISTENTLY DUE KEVIN UNCONTROLLED WITHDRAWAL SX'S. HE IS PRESCRIBED THE OXYCODONE BUT REPORTS HE IS ABUSING THEM. OVER USES THE RX AND THEN BUYS IN THE STREET. DENIES ANY SIGNIFICANT PERIOD OF CLEAN TIME. Exam Limitations: Intoxication - Ebola screening Have you traveled outside of the country in the last 21 days: No Have you had contact with anyone from an Ebola affected area: No Have you been sick,other than usual withdrawal symptoms: No Do you have a fever: No - Review of Systems Constitutional: Chills, Loss of Appetite, Malaise, Night Sweats, Changes in sleep EENT: reports: Tearing, Nose Congestion, Other (DIALTED PUPILS) Respiratory: reports: No Symptoms reported Cardiac: reports: No Symptoms Reported GI: reports: Poor Appetite, Poor Fluid Intake Musculoskeletal: reports: Back Pain, Joint Pain, Muscle Pain Integumentary: reports: Flushing, Sweating Neuro: reports: Seizure (R/T ETOH WITHDRAWAL), Tremors (R/T WITHDRAWAL) Endocrine: reports: No Symptoms Reported Hematology: reports: No Symptoms Reported Psychiatric: reports: Agitated, Anxious, Depressed Other Systems: Reviewed and Negative Patient History - Patient Medical History Hx Anemia: No Hx Asthma: No Hx Chronic Obstructive Pulmonary Disease (COPD): No Hx Cancer: No Hx Cardiac Disorders: No Hx Congestive Heart Failure: No Hx Hypertension: No Hx Hypercholesterolemia: No Hx Pacemaker: No HX Cerebrovascular Accident: No Hx Seizures: Yes (KEPPRA) Hx Dementia: No Hx Diabetes: No Hx Gastrointestinal Disorders: No Hx Liver Disease: Yes (fatty liver, CIRRHOSIS) Hx Genitourinary Disorders: Yes (BPH) Hx Sexually Transmitted Disorders: No Hx Renal Disease (ESRD): No Hx Thyroid Disease: No Hx Human Immunodeficiency Virus (HIV): No Hx Hepatitis C: No Hx Depression: Yes (DENIES SI/HI) Hx Suicide Attempt: No Hx Bipolar Disorder: Yes Hx Schizophrenia: No Other Medical History: ANXIETY; NEUROPATHY - Patient Surgical History Past Surgical History: Yes Hx Neurologic Surgery: No Hx Cataract Extraction: No Hx Cardiac Surgery: No Hx Lung Surgery: No Hx Breast Surgery: No Hx Breast Biopsy: No Hx Abdominal Surgery: Yes (LAP BAND 2009/umbilical hernia repaired 2013) Hx Appendectomy: No Hx Cholecystectomy: No Hx Genitourinary Surgery: No Hx Section: No Hx Orthopedic Surgery: Yes (ARTHROSCOPY LEFT SHOULDER 2011) Anesthesia Reaction: No - PPD History Previous Implant?: Yes Documented Results: Negative w/proof Implanted On Prior [facility] Admission?: Yes Date: 06/01/16 Results: 0mm PPD to be Administered?: No - Smoking Cessation Smoking history: Never smoked Have you smoked in the past 12 months: No Aproximately how many cigarettes per day: 0 Cigars Per Day: 0 Hx Chewing Tobacco Use: No Initiated information on smoking cessation: No - Substance & Tx. History Hx Alcohol Use: Yes Hx Substance Use: Yes Substance Use Type: Alcohol, Prescribed (OXY) Hx Substance Use Treatment: Yes ([facility]) - Substances Abused BEER/ LIQUOR Route: Oral Frequency: Daily Amount used: 6 CANS/5 SHOTS Age of first use: 12 Date of Last Use: 04/08/17 (6 PACK/2 SHOTS) OXYCODONE Route: Oral Frequency: Daily Amount used: 80MG Age of first use: 36 Date of Last Use: 04/08/17 Family Disease History - Family Disease History Family Disease History: Other: Father (Alive: 65 alcoholic), Mother (Alive: 62: healthy), Brother (Alive: Healthy), Sister (Alive: Healthy), Son (Healthy), Daughter (Healthy) Admission Physical Exam [facility] - Vital Signs Vital Signs: Vital Signs - 24 hr 04/08/17 23:01 Temperature 98 F Pulse Rate 106 H Respiratory 18 Rate Blood Pressure 122/82 - Physical General Appearance: Yes: Disheveled, Moderate Distress, Intoxicated, Tremorous, Irritable, Sweating, Anxious, Other (MALODUROUS) HEENTM: Yes: EOMI, Normocephalic, LADY, Pharynx Normal, Nasal Congestion, Other (DIALATED PUPILS) Respiratory: Yes: Chest Non-Tender, Lungs Clear, Normal Breath Sounds, No Respiratory Distress, No Accessory Muscle Use Neck: Yes: No masses,lesions,Nodules, Supple, Trachea in good position Breast: Yes: Breast Exam Deferred Cardiology: Yes: Regular Rhythm, S1, S2, Tachycardia Abdominal: Yes: Normal Bowel Sounds, Non Tender, Soft, Protuberent, Other ( AREAS OF ECCHYMOSIS FROM BLOOD THINNER INJECTIONS WHILE IN THE HOSPITAL) Genitourinary: Yes: Within Normal Limits Back: Yes: Normal Inspection Musculoskeletal: Yes: full range of Motion, Gait Steady, Back pain (C/O) Extremities: Yes: Normal Range of Motion, Non-Tender, Tremors, Pedal Edema ( TRACE EDEMA TO BLE), Other (RIGHT HAND 2ND DIGIT RESOLVING ECCHYMOTIC AREA) 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, Fully Oriented, Alert, Motor Strength 5/5 Integumentary: Yes: Normal Color, Warm, Moist Lymphatic: Yes: Within Normal Limits - Diagnostic (1) Alcohol dependence with uncomplicated withdrawal Current Visit: Yes Status: Chronic (2) Opioid dependence with withdrawal Current Visit: Yes Status: Chronic (3) Alcohol withdrawal seizure Current Visit: Yes Status: Chronic Qualifiers: Complication of substance-induced condition: uncomplicated Qualified Code(s ): F10.230 - Alcohol dependence with withdrawal, uncomplicated (4) Neuropathy Current Visit: No Status: Chronic Comment: neurontin cane (5) BPH (benign prostatic hyperplasia) Current Visit: Yes Status: Chronic Qualifiers: Lower urinary tract symptom presence: unspecified whether lower urinary tract symptoms present Qualified Code(s): N40.0 - Benign prostatic hyperplasia without lower urinary tract symptoms (6) Lower extremity edema Current Visit: Yes Status: Chronic Cleared for Admission [facility] - Detox or Rehab [facility] Level of Care: Medically Managed Detox Regimen/Protocol: Methadone/Valium (PT PREFERS OVER LIBRIUM) Claeared for Rehab Admission: No S Breath Alcohol Content Breath Alcohol Content: 0.186 Urine Drug Screen - Results Drug Screen Negative: No Urine Drug Screen Results: BZO-Benzodiazepines, TCA-Tricyclic Antidepress, OXY- Oxycodone
[2017-04-08] MEDS ORDERED: LOPERAMIDE HCL 2 MG CAPSULE PO PRN (23:28)
[2017-04-08] MEDS ORDERED: IBUPROFEN 400 MG TABLET (FP) PO PRN (23:28)
[2017-04-08] MEDS ORDERED: guaiFENesin/D-METHORPHAN HB 10 ML UNIT-DOSE CUPS PO PRN (23:28)
[2017-04-08] MEDS ORDERED: MENTHOL/PHENOL 1 EACH UD MM PRN (23:28)
[2017-04-08] MEDS ORDERED: MAG HYDROX/AL HYDROX/SIMETH 30 ML UNIT-DOSE CUP PO PRN (23:28)
[2017-04-08] MEDS ORDERED: MAGNESIUM HYDROX 2400MG/30ML ORAL SUSPENSION 30 ML CUP PO PRN (23:28)
[2017-04-08] MEDS ORDERED: MAGNESIUM CITRATE 300 ML BOTTLE PO PRN (23:28)
[2017-04-08] MEDS ORDERED: P-EPHED 60MG/TRIPROLIDI 2.5MG TABLET PO PRN (23:28)
[2017-04-09] MEDS ORDERED: diazePAM 5 MG TABLET PO ONE (00:01)
[2017-04-09] MEDS ORDERED: METHADONE HCL 10 MG TABLET (FOR DETOX USE ONLY) PO ONE ×3 (00:01→23:00)
[2017-04-09] MEDS: CYCLOBENZAPRINE HCL 10 MG TABLET (FP) PO PRN ×3 (02:09→22:12)
[2017-04-09] MEDS: ACETAMINOPHEN 325 MG TABLET (FP) PO PRN ×2 (02:09→18:23)
[2017-04-09] MEDS: diazePAM 5 MG TABLET PO SCH ×3 (05:31→22:12)
[2017-04-09] MEDS: GABAPENTIN 300 MG CAPSULE (FP) PO SCH ×3 (05:32→22:12)
[2017-04-09] MEDS: PRENATAL VITAMINS W/ FOLIC ACID TABLET (FP) PO SCH (10:08)
[2017-04-09] MEDS: TAMSULOSIN HCL 0.4 MG CAP.ER.24H (FP) PO SCH (10:08)
[2017-04-09] MEDS: levETIRAcetam 500 MG TABLET (FP) PO SCH ×2 (10:08→22:12)
[2017-04-09] MEDS: diazePAM 5 MG TABLET PO PRN ×2 (10:09→18:17)
[2017-04-09 10:10] LABS: CALCIUM 8.4 mg/dL (8.5-10.1)
[2017-04-09 10:16] LABS: ALBUMIN 2.9 g/dl (3.4-5.0); ALK PHOS 150 U/L (45-117); ANION GAP 9 (8-16); BILIRUBIN,TOTAL 0.9 mg/dL (0.2-1.0); CO2 28 mmol/L (21-32); CREATININE 0.6 mg/dL (0.7-1.3); GLUCOSE,RANDOM 83 mg/dL (74-106); SGOT/AST 49 U/L (15-37); SGPT/ALT 32 U/L (12-78); TOT PROT 7.1 g/dl (6.4-8.2)
[2017-04-09 10:40] LABS: MCH 32.8 pg (25.7-33.7); MCHC 33.1 g/dl (32.0-35.9); MEAN CELL VOLUME 99.2 fl (80-96); MEAN PLT VOLUME 7.5 fl (7.5-11.1); PLATELET COUNT 179 K/MM3 (134-434); RDW 13.6 % (11.9-15.9); WHITE BLOOD COUNT 6.7 K/mm3 (4.0-10.0)
--- NOTE | 2017-04-09 11:18 | PN ---
[facility] CIWA - CIWA Score Nausea/Vomitin-No Nausea/No Vomiting Muscle Tremors: 3 Anxiety: 5 Agitation: 4-Moderately Restless Paroxysmal Sweats: 2 Orientation: 0-Oriented Tacttile Disturbances: 2-Mild Itch/Numbness/Burn Auditory Disturbances: 0-None Visual Disturbances: 2-Mild Sensitivity Headache: 0-None Present CIWA-Ar Total Score: 18 [facility] COWS - Scale Resting Pulse: 1= [place] 81-100 Sweatin= Chills/Flushing Restless Observation: 1= Difficult to Sit Still Pupil Size: 0= Normal to Room Light Bone or Joint Aches: 2= Severe Diffuse Aches Runny Nose/ Eye Tearin= None GI Upset > 30mins: 0= None Tremor Observation of Outstretched Hands: 2= Slight Tremor Visible Yawning Observation: 1= 1-2x During Session Anxiety or Irritability: 4=Extreme Anxiety Goose Flesh Skin: 3=Piloerection COWS Score: 15 S Progress Note (SOAP) Subjective: Anxious, Body Aches, Sweating. Objective: PT. A & O X 3, OBSERVED AMBULATING ON UNIT. NO ACUTE DISTRESS. 04/09/17 11:16 Vital Signs Temperature 96.8 F L 04/09/17 09:19 Pulse Rate 85 04/09/17 09:19 Respiratory Rate 18 04/09/17 09:19 Blood Pressure 121/85 04/09/17 09:19 O2 Sat by Pulse Oximetry (%) Laboratory Tests 04/09/17 04/09/17 07:54 07:54 WBC 6.7 RBC 4.31 Hgb 14.1 Hct 42.7 MCV 99.2 H MCH 32.8 MCHC 33.1 RDW 13.6 Plt Count 179 MPV 7.5 Sodium 142 Potassium 3.5 Chloride 105 Carbon Dioxide 28 Anion Gap 9 BUN 6 L D Creatinine 0.6 L Creat Clearance w eGFR > 60 Random Glucose 83 Calcium 8.4 L Total Bilirubin 0.9 D AST 49 H ALT 32 Alkaline Phosphatase 150 H D Total Protein 7.1 Albumin 2.9 L LABS NOTED. HIV AB, RPR, UA RESULTS PENDING. 04/09/17 11:18 Assessment: 04/09/17 11:16 WITHDRAWAL SYMPTOMS. Plan: CONTINUE DETOX. LIDODERM PATCH FOR LOWER BACK PAIN. INCREASE DAILY PO FLUID INTAKE.
--- NOTE | 2017-04-09 11:32 | CONSULT ---
[facility] Psychiatric Consult - Data Date of interview: 04/09/17 Admission source: [facility] Identifying data: Another admission to [facility] for this 46 y/o male seeking detox treatment on for alcohol and opiate dependence.Patient is ,a father of two,domiciled,currently unemployed and supported by relatives. Substance Abuse History: Confirmed by patient in this session.See current [facility] report for details : Smoking history: Never smoked. Have you smoked in the past 12 months: No. Aproximately how many cigarettes per day: 0. Cigars Per Day: 0. Hx Chewing Tobacco Use: No. Initiated information on smoking cessation : No. - Substance & Tx. History. Hx Alcohol Use: Yes. Hx Substance Use: Yes. Substance Use Type: Alcohol, Prescribed (OXY). Hx Substance Use Treatment: Yes ([facility]). - Substances Abused. BEER/ LIQUOR. Route: Oral. Frequency: Daily. Amount used: 6 CANS/5 SHOTS. Age of first use: 12. Date of Last Use: 04/08/17 (6 PACK/2 SHOTS). OXYCODONE. Route: Oral. Frequency: Daily. Amount used: 80MG. Age of first use: 36. Date of Last Use: 04/08/17 Medical History: No changes since encounter of 05/31/16 : hypertension, prostatitis,cirrhosis of liver, recent history of pylonephritis and low back pain.Noted history of arthroscopy on left shoulder (2009),exploratory laparotomy (2011) and umbilical herniorraphy (2013). Psychiatric History: No reported history of pychiatric hospitalizations.Mr Blount reports a brief CPEP visit at [facility] in 2016.No contact with psychiatric OPD care providers.Patient denies history of suicide attempts. Physical/Sexual Abuse/Trauma History: Patient denies history of abuse. Additional Comment: Urine Drug Screen Results: BZO-Benzodiazepines, TCA- Tricyclic Antidepressant, OXY-Oxycodone.Noted. Mental Status Exam - Mental Status Exam Alert and Oriented to: Time, Place, Person Cognitive Function: Good Patient Appearance: Well Groomed (overweight,torso entirely covered with tattoos ) Mood: Hopeful, Euthymic Affect: Appropriate, Normal Range Patient Behavior: Appropriate, Cooperative Speech Pattern: Clear, Appropriate Thought Process: Goal Oriented Thought Disorder: Not Present Hallucinations: Denies Suicidal Ideation: Denies Homicidal Ideation: Denies Insight/Judgement: Poor Sleep: Poorly, Difficulty falling asleep Appetite: Good Muscle strength/Tone: Normal Gait/Station: Normal Psychiatric Findings - Problem List ([place] 1, 2,3) (1) Alcohol dependence with uncomplicated withdrawal Current Visit: Yes Status: Acute (2) Opioid dependence with withdrawal Current Visit: Yes Status: Acute (3) Insomnia Current Visit: Yes Status: Acute - Initial Treatment Plan Initial Treatment Plan: Psychoeducation.Sleep hygiene.Detoxification in effect.Ambien 10 mg po hs prn.Patient is made aware of risk of parasomnias.Mr Blount is agreable to this careplan.Observation.
[2017-04-09 11:48] LABS: HIV 1 & 2 AB NEGATIVE; HIV 1 AGp24 NEGATIVE
--- NOTE | 2017-04-09 13:05 | EKG ---
Test Reason : Blood Pressure : / mmHG Vent. Rate : 088 BPM Atrial Rate : 088 BPM P-R Int : 162 ms QRS Dur : 100 ms QT Int : 388 ms P-R-T Axes : 047 050 036 degrees QTc Int : 469 ms NORMAL SINUS RHYTHM NORMAL ECG WHEN COMPARED WITH ECG OF 02-APR-2017 14:28, NO SIGNIFICANT CHANGE WAS FOUND Confirmed by CUATE DYSON MD ([id number]) on 04/09/2017 1:05:24 PM Referred By: Confirmed By:CUATE DYSON MD
[2017-04-09] MEDS: LIDOCAINE 5% TOPICAL PATCH TP SCH (13:40)
[2017-04-09] MEDS: ZOLPIDEM TARTRATE 10 MG TABLET (PARK CARE ONLY) PO PRN (22:12)
[2017-04-09] MEDS: THIAMINE HCL 100 MG TABLET (FP) PO SCH (22:12)
[2017-04-09] MEDS: LIDOCAINE PATCH REMOVAL MC SCH (22:13)
[2017-04-10] MEDS: diazePAM 5 MG TABLET PO PRN ×2 (04:19→10:04)
[2017-04-10] MEDS: diazePAM 5 MG TABLET PO SCH ×3 (07:55→22:10)
[2017-04-10] MEDS: GABAPENTIN 300 MG CAPSULE (FP) PO SCH ×3 (07:55→22:10)
[2017-04-10] MEDS ORDERED: METHADONE HCL 10 MG TABLET (FOR DETOX USE ONLY) PO SCH (10:00)
[2017-04-10] MEDS: TAMSULOSIN HCL 0.4 MG CAP.ER.24H (FP) PO SCH (10:03)
[2017-04-10] MEDS: levETIRAcetam 500 MG TABLET (FP) PO SCH ×2 (10:03→22:10)
[2017-04-10] MEDS: LIDOCAINE 5% TOPICAL PATCH TP SCH (10:04)
[2017-04-10] MEDS: PRENATAL VITAMINS W/ FOLIC ACID TABLET (FP) PO SCH (10:04)
[2017-04-10] MEDS: ACETAMINOPHEN 325 MG TABLET (FP) PO PRN (10:04)
[2017-04-10] MEDS ORDERED: ARTIFICIAL TEARS (POLYVINYL ALCOHOL 1.4%) OPTH DROPS OU PRN (10:28)
--- NOTE | 2017-04-10 11:20 | PN ---
[facility] CIWA - CIWA Score Nausea/Vomitin-No Nausea/No Vomiting Muscle Tremors: 3 Anxiety: 4-Mod. Anxious/Guarded Agitation: 4-Moderately Restless Paroxysmal Sweats: 2 Orientation: 0-Oriented Tacttile Disturbances: 2-Mild Itch/Numbness/Burn Auditory Disturbances: 0-None Visual Disturbances: 1-Very Mild Sensitivity Headache: 0-None Present CIWA-Ar Total Score: 16 S COWS - Scale Resting Pulse: 1= [place] 81-100 Sweatin= Chills/Flushing Restless Observation: 1= Difficult to Sit Still Pupil Size: 0= Normal to Room Light Bone or Joint Aches: 2= Severe Diffuse Aches Runny Nose/ Eye Tearin= None GI Upset > 30mins: 1= Stomach Cramp Tremor Observation of Outstretched Hands: 2= Slight Tremor Visible Yawning Observation: 1= 1-2x During Session Anxiety or Irritability: 2=Irritable/Anxious Goose Flesh Skin: 3=Piloerection COWS Score: 14 S Progress Note (SOAP) Subjective: Body Aches, Tremors, Anxious. Objective: PT. A & O X 3, OBSERVED AMBULATING ON UNIT. NO ACUTE DISTRESS. 04/10/17 11:17 Vital Signs Temperature 96.3 F L 04/10/17 05:59 Pulse Rate 82 04/10/17 09:17 Respiratory Rate 18 04/10/17 09:17 Blood Pressure 108/77 04/10/17 09:17 O2 Sat by Pulse Oximetry (%) Laboratory Tests 04/09/17 04/09/17 04/09/17 07:54 07:54 07:54 WBC 6.7 RBC 4.31 Hgb 14.1 Hct 42.7 MCV 99.2 H MCH 32.8 MCHC 33.1 RDW 13.6 Plt Count 179 MPV 7.5 Sodium 142 Potassium 3.5 Chloride 105 Carbon Dioxide 28 Anion Gap 9 BUN 6 L D Creatinine 0.6 L Creat Clearance w eGFR > 60 Random Glucose 83 Calcium 8.4 L Total Bilirubin 0.9 D AST 49 H ALT 32 Alkaline Phosphatase 150 H D Total Protein 7.1 Albumin 2.9 L RPR Titer Nonreactive HIV 1&2 Antibody Screen HIV P24 Antigen 04/09/17 07:54 WBC RBC Hgb Hct MCV MCH MCHC RDW Plt Count MPV Sodium Potassium Chloride Carbon Dioxide Anion Gap BUN Creatinine Creat Clearance w eGFR Random Glucose Calcium Total Bilirubin AST ALT Alkaline Phosphatase Total Protein Albumin RPR Titer HIV 1&2 Antibody Screen Negative HIV P24 Antigen Negative LABS NOTED. UA RESULTS PENDING. 04/10/17 11:20 Assessment: 04/10/17 11:17 WITHDRAWAL SYMPTOMS. Plan: CONTINUE DETOX. INCREASE DAILY PO FLUID INTAKE.
[2017-04-10 14:08] LABS: URINE APPEARANCE SLCLOUDY; URINE BILIRUBIN NEGATIVE (NEGATIVE); URINE BLOOD NEGATIVE (NEGATIVE); URINE COLOR DKYELLOW; URINE GLUCOSE (UA) NEGATIVE (NEGATIVE); URINE KETONE NEGATIVE (NEGATIVE); URINE LEUK ESTERASE NEGATIVE (NEGATIVE); URINE NITRITE NEGATIVE (NEGATIVE); URINE PROTEIN NEGATIVE (NEGATIVE); URINE UROBILINOGEN 4.0 E.U/dl mg/dL (0.2-1.0)
[2017-04-10 19:30] LABS: URINE LEUK ESTERASE Negative (NEGATIVE)
[2017-04-10] MEDS: LIDOCAINE PATCH REMOVAL MC SCH (22:08)
[2017-04-10] MEDS: THIAMINE HCL 100 MG TABLET (FP) PO SCH (22:09)
[2017-04-10] MEDS: ZOLPIDEM TARTRATE 10 MG TABLET (PARK CARE ONLY) PO PRN (22:10)
[2017-04-10] MEDS: CYCLOBENZAPRINE HCL 10 MG TABLET (FP) PO PRN (22:10)
[2017-04-11] MEDS: diazePAM 5 MG TABLET PO PRN ×2 (04:17→13:53)
[2017-04-11] MEDS: GABAPENTIN 300 MG CAPSULE (FP) PO SCH ×2 (05:32→13:52)
[2017-04-11] MEDS ORDERED: METHADONE HCL 5 MG TABLET (FOR DETOX USE ONLY) PO SCH (10:00)
[2017-04-11] MEDS ORDERED: diazePAM 5 MG TABLET PO SCH (10:00)
[2017-04-11] MEDS: TAMSULOSIN HCL 0.4 MG CAP.ER.24H (FP) PO SCH (10:12)
[2017-04-11] MEDS: PRENATAL VITAMINS W/ FOLIC ACID TABLET (FP) PO SCH (10:13)
[2017-04-11] MEDS: LIDOCAINE 5% TOPICAL PATCH TP SCH (10:13)
[2017-04-11] MEDS: levETIRAcetam 500 MG TABLET (FP) PO SCH (10:13)
--- NOTE | 2017-04-11 11:39 | PN ---
[facility] Progress Note (SOAP) Subjective: Body Aches, Anxious Tremors. Objective: PT. A & O X 3, OBSERVED AMBULATING ON UNIT. NO ACUTE DISTRESS. 04/11/17 11:36 Vital Signs Temperature 95.9 F L 04/11/17 09:19 Pulse Rate 89 04/11/17 09:19 Respiratory Rate 18 04/11/17 09:19 Blood Pressure 108/74 04/11/17 09:19 O2 Sat by Pulse Oximetry (%) Laboratory Tests 04/09/17 04/09/17 04/09/17 07:54 07:54 07:54 WBC 6.7 RBC 4.31 Hgb 14.1 Hct 42.7 MCV 99.2 H MCH 32.8 MCHC 33.1 RDW 13.6 Plt Count 179 MPV 7.5 Sodium 142 Potassium 3.5 Chloride 105 Carbon Dioxide 28 Anion Gap 9 BUN 6 L D Creatinine 0.6 L Creat Clearance w eGFR > 60 Random Glucose 83 Calcium 8.4 L Total Bilirubin 0.9 D AST 49 H ALT 32 Alkaline Phosphatase 150 H D Total Protein 7.1 Albumin 2.9 L Urine Color Urine Appearance Urine pH Ur Specific [place] Urine Protein Urine Glucose (UA) Urine Ketones Urine Blood Urine Nitrite Urine Bilirubin Urine Urobilinogen Ur Leukocyte Esterase RPR Titer Nonreactive HIV 1&2 Antibody Screen HIV P24 Antigen 04/09/17 04/10/17 07:54 12:40 WBC RBC Hgb Hct MCV MCH MCHC RDW Plt Count MPV Sodium Potassium Chloride Carbon Dioxide Anion Gap BUN Creatinine Creat Clearance w eGFR Random Glucose Calcium Total Bilirubin AST ALT Alkaline Phosphatase Total Protein Albumin Urine Color Dkyellow Urine Appearance Slcloudy Urine pH 6.0 Ur Specific [place] 1.017 Urine Protein Negative Urine Glucose (UA) Negative Urine Ketones Negative Urine Blood Negative Urine Nitrite Negative Urine Bilirubin Negative Urine Urobilinogen 4.0 e.u/dl Ur Leukocyte Esterase Negative RPR Titer HIV 1&2 Antibody Screen Negative HIV P24 Antigen Negative LABS NOTED. Assessment: 04/11/17 11:36 WITHDRAWAL SYMPTOMS. Plan: CONTINUE DETOX. INCREASE DAILY PO FLUID INTAKE.
[2017-04-11 18:28] VITALS: BP 90/57; PULSE 85; TEMP 97.7
--- NOTE | 2017-04-11 22:44 | DS ---
[facility] Detox Discharge Summary Admission Date: 04/08/17 Discharge Date: 04/11/17 - History Present History: Alcohol Dependence, Opioid Dependence Additional Comments: MET WITH THE PT. ON THE UNIT. HE REQUESTED TO LEAVE AMA. HE STATED HE FELT GOOD AND DID NOT NEED TO STAY ANY LONGER. DENIES WITHDRAWAL SYMPTOMS. NO SIGN OF DISTRESS NOTED. REFUSED MEDICATION REFILLS. Pertinent Past History: Laboratory Last Values WBC 6.7 K/mm3 (4.0-10.0) 04/09/17 07:54 RBC 4.31 M/mm3 (4.00-5.60) 04/09/17 07:54 Hgb 14.1 GM/dL (11.7-16.9) 04/09/17 07:54 Hct 42.7 % (35.4-49) 04/09/17 07:54 MCV 99.2 fl (80-96) H 04/09/17 07:54 MCH 32.8 pg (25.7-33.7) 04/09/17 07:54 MCHC 33.1 g/dl (32.0-35.9) 04/09/17 07:54 RDW 13.6 % (11.9-15.9) 04/09/17 07:54 Plt Count 179 K/MM3 (134-434) 04/09/17 07:54 MPV 7.5 fl (7.5-11.1) 04/09/17 07:54 Sodium 142 mmol/L (136-145) 04/09/17 07:54 Potassium 3.5 mmol/L (3.5-5.1) 04/09/17 07:54 Chloride 105 mmol/L (98-107) 04/09/17 07:54 Carbon Dioxide 28 mmol/L (21-32) 04/09/17 07:54 Anion Gap 9 (8-16) 04/09/17 07:54 BUN 6 mg/dL (7-18) L D 04/09/17 07:54 Creatinine 0.6 mg/dL (0.7-1.3) L 04/09/17 07:54 Creat Clearance w eGFR > 60 (>60) 04/09/17 07:54 Random Glucose 83 mg/dL (74-106) 04/09/17 07:54 Calcium 8.4 mg/dL (8.5-10.1) L 04/09/17 07:54 Total Bilirubin 0.9 mg/dL (0.2-1.0) D 04/09/17 07:54 AST 49 U/L (15-37) H 04/09/17 07:54 ALT 32 U/L (12-78) 04/09/17 07:54 Alkaline Phosphatase 150 U/L (45-117) H D 04/09/17 07:54 Total Protein 7.1 g/dl (6.4-8.2) 04/09/17 07:54 Albumin 2.9 g/dl (3.4-5.0) L 04/09/17 07:54 Urine Color Dkyellow 04/10/17 12:40 Urine Appearance Slcloudy 04/10/17 12:40 Urine pH 6.0 (5.0-8.0) 04/10/17 12:40 Ur Specific [place] 1.017 (1.001-1.035) 04/10/17 12:40 Urine Protein Negative (NEGATIVE) 04/10/17 12:40 Urine Glucose (UA) Negative (NEGATIVE) 04/10/17 12:40 Urine Ketones Negative (NEGATIVE) 04/10/17 12:40 Urine Blood Negative (NEGATIVE) 04/10/17 12:40 Urine Nitrite Negative (NEGATIVE) 04/10/17 12:40 Urine Bilirubin Negative (NEGATIVE) 04/10/17 12:40 Urine Urobilinogen 4.0 e.u/dl mg/dL (0.2-1.0) 04/10/17 12:40 Ur Leukocyte Esterase Negative (NEGATIVE) 04/10/17 12:40 RPR Titer Nonreactive (NONREACTIVE) 04/09/17 07:54 HIV 1&2 Antibody Screen Negative 04/09/17 07:54 HIV P24 Antigen Negative 04/09/17 07:54 LABS NOTED - Physical Exam Results Vital Signs: Vital Signs Temperature 97.7 F 04/11/17 18:28 Pulse Rate 85 04/11/17 18:28 Respiratory Rate 19 04/11/17 18:28 Blood Pressure 90/57 04/11/17 18:28 O2 Sat by Pulse Oximetry (%) - Medication Discharge Medications: Ambulatory Orders Gabapentin [Neurontin -] 600 mg PO TID 05/30/16 Furosemide [Lasix] 40 mg PO DAILY #3 tablet 06/23/16 Cyclobenzaprine HCl [Flexeril -] 10 mg PO TID 03/25/17 Levetiracetam [Keppra -] 500 mg PO BID 03/25/17 Folic Acid - 1 mg PO DAILY #30 tablet 03/27/17 Lactobacillus Acidophilus [Probiotic] 1 each PO DAILY #10 capsule 03/27/17 Tamsulosin HCl [Flomax -] 0.4 mg PO DAILY@0830 #30 cap.er.24h 03/27/17 Thiamine HCl [Vitamin B1 -] 100 mg PO HS #30 tablet 03/27/17 Acetaminophen [Tylenol .Regular Strength -] 650 mg PO Q4H PRN tablet 04/05/17 Polyethylene Glycol 3350 [Miralax 119 gm Btl -] 17 gm PO DAILY bottle 04/05/17 Spironolactone [Aldactone -] 25 mg PO DAILY #30 tablet 04/05/17 Docusate Sodium [Colace -] 100 mg PO BID PRN 04/08/17 - Diagnosis (1) Alcohol dependence with uncomplicated withdrawal Status: Chronic (2) Opioid dependence with withdrawal Status: Chronic (3) BPH (benign prostatic hyperplasia) Status: Chronic Qualifiers: Lower urinary tract symptom presence: unspecified whether lower urinary tract symptoms present Qualified Code(s): N40.0 - Benign prostatic hyperplasia without lower urinary tract symptoms (4) Lower extremity edema Status: Chronic (5) Neuropathy Status: Chronic - AMA Did Patient Leave Against Medical Advice: Yes
[2017-04-12] MEDS ORDERED: METHADONE HCL 10 MG TABLET (FOR DETOX USE ONLY) PO SCH (10:00)
[2017-04-13] MEDS ORDERED: METHADONE HCL 5 MG TABLET (FOR DETOX USE ONLY) PO SCH (06:00)
[2017-04-13] MEDS ORDERED: diazePAM 5 MG TABLET PO SCH (10:00)
[2017-04-13] MEDS ORDERED: METHADONE HCL 10 MG TABLET (FOR DETOX USE ONLY) PO SCH (10:00)
[2017-04-14] MEDS ORDERED: METHADONE HCL 5 MG TABLET (FOR DETOX USE ONLY) PO SCH (06:00)
== END 2017-04-11 20:45 | disposition left against medical advice (07) | DRG 770 ==
LOC: YASAS 22:18 → Y3N 23:57
PROVIDERS: ADMIT Internal Medicine; ATTEND Internal Medicine
PROC: HZ2ZZZZ Detoxification Services for Substance Abuse Treatment (ICD-10-PCS; principal; 2017-04-08)
DX: F11.23 Opioid dependence with withdrawal (principal); F10.230 Alcohol dependence with withdrawal, uncomplicated; N40.0 Benign prostatic hyperplasia without lower urinary tract symptoms; G62.9 Polyneuropathy, unspecified; G47.00 Insomnia, unspecified; G40.909 Epilepsy, unspecified, not intractable, without status epilepticus; K74.60 Unspecified cirrhosis of liver; R60.0 Localized edema; K76.0 Fatty (change of) liver, not elsewhere classified; R00.0 Tachycardia, unspecified; Z98.84 Bariatric surgery status
CPT/HCPCS: 36415; 80053; 81003; 85027; 86593; 87389; 93005; 93010

== ENCOUNTER 2017-04-23 04:20 | Emergency (ER) | payer OTHER ==
[2017-04-23 05:17] VITALS: BMI 36.2
--- NOTE | 2017-04-23 07:43 | PDOC ---
History of Present Illness - General Chief Complaint: Bite Stated Complaint: BITE Time Seen by Provider: 04/23/17 07:20 History Source: Patient Exam Limitations: No Limitations - History of Present Illness Initial Comments: 04/23/17 07:37 Patient is a 46 year old male, with a significant past medical history of seizures, alcohol abuse, liver cirrhosis, peripheral neuropathy, chronic back pain, bipolar disorder, HTN, and hypokalemia, who presents to the emergency department for evaluation of cat scratches and bites to the left upper extremity , also was told by his PMD to come for evaluation of edema to bilateral lower extremities . The patient was in the ED on 03/25/17 and was admitted for the same symptoms. The patient denies fever, chest pain, shortness of breath, headache and dizziness. Denies any Abdominal symptoms. Past surgical history: ARTHROSCOPY LEFT SHOULDER 2011), LAP BAND 2009/umbilical hernia repaired 2013 Social history: Social alcohol use and abuse, admits to drinking prior to arrival. no tobacco or drug use reported Medications: [ See medication list] Family History: Uncle with cirrhosis, ETOH abuse Review of Systems GENERAL/CONSTITUTIONAL: [No fever or chills. No weakness. No weight change.] HEAD, EYES, EARS, NOSE AND THROAT: [No change in vision. No ear pain or discharge. No sore throat. ] CARDIOVASCULAR: [No chest pain or shortness of breath.] RESPIRATORY: [No cough, wheezing, or hemoptysis.] GASTROINTESTINAL: [No nausea, vomiting, diarrhea or constipation. No rectal bleeding.] GENITOURINARY: [No dysuria, frequency, or change in urination.] MUSCULOSKELETAL: [No joint or muscle swelling or pain. No neck or back pain.] SKIN: [Palpable abrasions generalized, increased to left upper extremity with mild erythema, no induration, bilateral +3 edema to lower extremities.] NEUROLOGIC: [No headache, vertigo, loss of consciousness, or loss of sensation.] Physical Exam: GENERAL: [The patient is awake, alert, and fully oriented, in no acute distress. ] EYES: [Pupils equal, round and reactive to light, extraocular movements intact, sclera anicteric, conjunctiva clear.] ENT: [Ears normal, nares patent, oropharynx clear without exudates. Moist mucous membranes. No uvula deviation] NECK: [Normal range of motion, supple without lymphadenopathy, JVD, or masses.] LUNGS: [Breath sounds equal, clear to auscultation bilaterally. No wheezes, and no crackles.] HEART: [Regular rate and rhythm, normal S1 and S2 without murmur, rub or gallop. ] ABDOMEN: [Soft, nontender, normoactive bowel sounds. No guarding, no rebound. No masses. No bruising or abrasions] MUSCULOSKELETAL: [Normal range of motion, no edema. No clubbing or cyanosis. No cords, erythema, or tenderness. No CVA Tenderness with fist.] NEUROLOGICAL: [Cranial nerves II through XII grossly intact. Normal speech, normal gait.] SKIN: [Bilateral lower extremity edema, + 4 non pitting, Multiple abrasions generalized. Visible scabbed puncture wounds to left upper extremity, forearm and hand.] Past History - Past Medical History Allergies/Adverse Reactions: Allergies Allergy/AdvReac Type Severity Reaction Status Date / Time No Known Allergies Allergy Verified 04/23/17 05:14 Home Medications: Ambulatory Orders Gabapentin [Neurontin -] 600 mg PO TID 05/30/16 Furosemide [Lasix] 40 mg PO DAILY #3 tablet 06/23/16 Cyclobenzaprine HCl [Flexeril -] 10 mg PO TID 03/25/17 Levetiracetam [Keppra -] 500 mg PO BID 03/25/17 Folic Acid - 1 mg PO DAILY #30 tablet 03/27/17 Lactobacillus Acidophilus [Probiotic] 1 each PO DAILY #10 capsule 03/27/17 Tamsulosin HCl [Flomax -] 0.4 mg PO DAILY@0830 #30 cap.er.24h 03/27/17 Thiamine HCl [Vitamin B1 -] 100 mg PO HS #30 tablet 03/27/17 Acetaminophen [Tylenol .Regular Strength -] 650 mg PO Q4H PRN tablet 04/05/17 Polyethylene Glycol 3350 [Miralax 119 gm Btl -] 17 gm PO DAILY bottle 04/05/17 Spironolactone [Aldactone -] 25 mg PO DAILY #30 tablet 04/05/17 Docusate Sodium [Colace -] 100 mg PO BID PRN 04/08/17 Amox-Tr/K Cl [Augmentin - 875Mg Tablet] 1 tab PO BID #14 tablet 04/23/17 Anemia: No Asthma: No Cancer: No Cardiac Disorders: No CVA: No COPD: No CHF: No DVT: No Dementia: No Diabetes: No GI Disorders: No Disorders: Yes (BPH) HTN: No Hypercholesterolemia: No Kidney Stones: No Liver Disease: Yes (fatty liver, CIRRHOSIS) Psychiatric Problems: Yes (ANXIETY) Seizures: Yes (KEPPRA) Thyroid Disease: No - Surgical History Abdominal Surgery: Yes (LAP BAND 2009/umbilical hernia repaired 2013) Appendectomy: No Cardiac Surgery: No Cholecystectomy: No GI Surgery: Yes (hernia repair) Lung Surgery: No Neurologic Surgery: No Orthopedic Surgery: Yes (ARTHROSCOPY LEFT SHOULDER 2011) - Reproductive History Testicular Surgery: No - Immunization History Immunization Up to Date: Yes - Suicide/Smoking/Psychosocial Hx Smoking Status: No Smoking History: Never smoked Have you smoked in the past 12 months: No Number of Cigarettes Smoked Daily: 0 Cigars Per Day: 0 Information on smoking cessation initiated: No 'Breaking Loose' booklet given: 01/23/17 Hx Alcohol Use: Yes Drug/Substance Use Hx: No Substance Use Type: Alcohol, Prescribed (OXY) Hx Substance Use Treatment: Yes ([facility]) *Physical Exam - Vital Signs Last Vital Signs Temp Pulse Resp BP Pulse Ox 98.0 F 104 H 14 96/66 97 04/23/17 05:14 04/23/17 05:14 04/23/17 05:14 04/23/17 05:14 04/23/17 05:14 Medical Decision Making - Medical Decision Making 04/23/17 07:43 A/P: Patient here for evaluation of multiple cat scratches and bites to left upper extremity there is no visible cellulitis noted areas are scabbed. Patient with chronic bilateral lower extremity edema he states that Dr. Rush wanted him to come in for admission and Lasix. This is chronic in nature and unchanged I will call PMD to discuss case patient here today for evaluation of cat scratches and bites. 04/23/17 08:[address] Rush who wants patient admitted for bilateral lower extremity edema , IV Lasix, evaluation of cat scratches and possible referral for outpatient detox. Order for admission to Dr. Halney placed as per requerst of Dr. Rush. Order for social work evaluation placed as per request of Dr. Rush for detox. 04/23/17 09:34 Dr hanley in to see patient, he does not want patient admitted at this time and has requested that I cancel the order for admission. I have canceled the order for social work as well as per request of Dr. Hanley , edema has been unchanged since previous episodes as per MD Hanley. Dr. Hanley has requested that patient be DC patient on Lasix 40 mg by mouth twice a day for the next 5 days follow-up with Dr. Rush in the next two days, Augmentin for cat bite. Tetanus ordered. Refrain from EtOH use . I discussed the physical exam findings, ancillary test results and final diagnoses with the patient. I answered all of the patient's questions. The patient was satisfied with the care received and felt comfortable with the discharge plan and treatment plan. The patient will call today to arrange follow-up and will return to the Emergency Department with any new, persistent or worsening symptoms. 04/23/17 09:50 *DC/Admit/Observation/Transfer Diagnosis at time of Disposition: Cat bite involving extremity, Bilateral lower extremity edema, Alcohol dependence with uncomplicated withdrawal - Discharge Dispostion Disposition: HOME Condition at time of disposition: Good Admit: No - Prescriptions Prescriptions: Amox-Tr/K Cl [Augmentin - 875Mg Tablet] 1 tab PO BID #14 tablet - Referrals Referrals: Neil Rush MD [Primary Care Provider] - 24 hours (Please call today after discharge to make arrangements to follow-up in 2 days) - Patient Instructions Printed Discharge Instructions: How to Care for a Domestic Animal Bite Additional Instructions: Please refrain from alcohol use Please take antibiotics as ordered until completed If any increased redness, swelling, fever, or any other concerns return to ER Please take Lasix 40 mg twice a day as per Dr. Hanley and follow up with Dr. Rush in the next two days. - Post Discharge Activity
--- NOTE | 2017-04-23 08:07 | PDOC ---
*Physical Exam - Vital Signs Last Vital Signs Temp Pulse Resp BP Pulse Ox 98.0 F 104 H 14 96/66 97 04/23/17 05:14 04/23/17 05:14 04/23/17 05:14 04/23/17 05:14 04/23/17 05:14 - Physical Exam Comments: 04/23/17 08:06 The patient was examined by [TOP LOADER Andolino] under my direct supervision. I personally evaluated the patient. I concur with the above findings and the plan of care. *DC/Admit/Observation/Transfer Diagnosis at time of Disposition: Cat bite involving extremity, Bilateral lower extremity edema, Alcohol dependence with uncomplicated withdrawal - Referrals Referrals: Mahesh Hanley MD [Staff Physician] - - Patient Instructions - Post Discharge Activity
[2017-04-23] MEDS ORDERED: DIPHTH,PERTUSS(ACELL),TET 0.5 ML DISP.SYRIN IM ONE (09:35)
[2017-04-23 10:11] VITALS: BP 126/74; PULSE 89; TEMP 98.2
== END 2017-04-23 10:02 | disposition home or self-care (01) ==
LOC: JER 04:20 → JERBED 07:57 → UNDOADMIN 07:57 → JERBED 09:24 → JER 10:02
PROC: 3E0234Z Introduction of Serum, Toxoid and Vaccine into Muscle, Percutaneous Approach (ICD-10-PCS; principal; 2017-04-23)
DX: S41.152A Open bite of left upper arm, initial encounter (principal); W55.01XA Bitten by cat, initial encounter; Y92.9 Unspecified place or not applicable; F10.20 Alcohol dependence, uncomplicated; G89.29 Other chronic pain; M54.9 Dorsalgia, unspecified; F31.9 Bipolar disorder, unspecified; I10 Essential (primary) hypertension; K74.60 Unspecified cirrhosis of liver
CPT/HCPCS: 90471; 90715; 99282-25

== ENCOUNTER 2017-05-16 14:19 | Observation (INO) | payer OTHER ==
--- NOTE | 2017-05-16 14:36 | PDOC ---
Rapid Medical Evaluation Time Seen by Provider: 05/16/17 14:31 Medical Evaluation: Allergies Allergy/AdvReac Type Severity Reaction Status Date / Time No Known Allergies Allergy Verified 04/23/17 05:14 I have performed a brief in-person evaluation of this patient. The patient presents with a chief complaint of: fatigue, subjective fever x 4 days Pertinent physical exam findings: none I have ordered the following: influenza The patient will proceed to the ED for further evaluation. Discharge Disposition - Referrals Referrals: Neil Rush MD [Primary Care Provider] - - Patient Instructions - Post Discharge Activity
[2017-05-16] MEDS ORDERED: ONDANSETRON *ODT* 4 MG TABLET SL ONE (15:25)
[2017-05-16] MEDS ORDERED: ONDANSETRON *ODT* 4 MG TABLET ONE ×2 (15:31→16:48)
[2017-05-16] MEDS ORDERED: MAG HYDROX/AL HYDROX/SIMETH 355 ML ORAL.SUSP PO ONE (16:17)
[2017-05-16] MEDS ORDERED: SODIUM CHLORIDE 1,000 ML IV ONE (16:18)
--- NOTE | 2017-05-16 16:26 | PDOC ---
History of Present Illness - General History Source: Patient Exam Limitations: No Limitations - History of Present Illness Initial Comments: 05/17/17 00:39 Patient is a 47 year old male with a significant past medical history of Seizure (questionable vs pseudoseizures ), HTN, Sleep Apnea, Cirrhosis, Alcohol Dependence, Chronic low back pain who presents to the ED with complaints of chest pain that began 5 days ago. Patient reports experiencing intermittent episodes of chest pain that began 5 days ago that has shown no signs of subsiding. He reports experiencing nausea, vomiting and fatigue secondary to chest pain. He reports vomiting bile that appeared to have a yellowish coloration. Patient reports experiencing abdominal pain as well as bowel frequency stating he has been moving small pellet like stools frequently for the last 2 days. He reports experiencing general body weakness as well as general body aches. Denies fevers, chills. Denies contact with sick individuals, out of state traveling. Denies any other symptoms. Allergies: None Social history: Live alone. Current smoker (1 cigarette per day). Current Alcohol use (5 drinks pr day). No illicit drugs. Surgical history: Arthroscopy (left shoulder, right knee), Bariatric Surgery ( gastric band) PMD: Dr. Neil Rush <Alphonse Elam - Last Filed: 05/17/17 00:39> - General History Source: Patient <Tate Buckley - Last Filed: 05/17/17 02:25> - General Chief Complaint: Cold Symptoms Stated Complaint: FLU Time Seen by Provider: 05/16/17 14:31 Past History <Alphonse Elam - Last Filed: 05/17/17 00:39> - Past Medical History Anemia: No Asthma: No Cancer: No Cardiac Disorders: No CVA: No COPD: No CHF: No DVT: No Dementia: No Diabetes: No GI Disorders: No Disorders: Yes (BPH) HTN: No Hypercholesterolemia: No Kidney Stones: No Liver Disease: Yes (fatty liver, CIRRHOSIS) Psychiatric Problems: Yes (ANXIETY) Seizures: Yes (KEPPRA) Thyroid Disease: No - Surgical History Abdominal Surgery: Yes (LAP BAND 2009/umbilical hernia repaired 2013) Appendectomy: No Cardiac Surgery: No Cholecystectomy: No GI Surgery: Yes (hernia repair) Lung Surgery: No Neurologic Surgery: No Orthopedic Surgery: Yes (ARTHROSCOPY LEFT SHOULDER 2011) - Reproductive History Testicular Surgery: No - Immunization History Immunization Up to Date: Yes - Suicide/Smoking/Psychosocial Hx Smoking Status: No Smoking History: Never smoked Have you smoked in the past 12 months: No Number of Cigarettes Smoked Daily: 0 Cigars Per Day: 0 Information on smoking cessation initiated: No 'Breaking Loose' booklet given: 01/23/17 Hx Alcohol Use: Yes Drug/Substance Use Hx: No Substance Use Type: Alcohol, Prescribed Hx Substance Use Treatment: Yes ([facility]) <Tate Buckley - Last Filed: 05/17/17 02:25> - Past Medical History Allergies/Adverse Reactions: Allergies Allergy/AdvReac Type Severity Reaction Status Date / Time No Known Allergies Allergy Verified 04/23/17 05:14 Home Medications: Ambulatory Orders Gabapentin [Neurontin -] 600 mg PO TID 05/30/16 Furosemide [Lasix] 40 mg PO DAILY #3 tablet 06/23/16 Cyclobenzaprine HCl [Flexeril -] 10 mg PO TID 03/25/17 Levetiracetam [Keppra -] 500 mg PO BID 03/25/17 Folic Acid - 1 mg PO DAILY #30 tablet 03/27/17 Lactobacillus Acidophilus [Probiotic] 1 each PO DAILY #10 capsule 03/27/17 Tamsulosin HCl [Flomax -] 0.4 mg PO DAILY@0830 #30 cap.er.24h 03/27/17 Thiamine HCl [Vitamin B1 -] 100 mg PO HS #30 tablet 03/27/17 Polyethylene Glycol 3350 [Miralax 119 gm Btl -] 17 gm PO DAILY bottle 04/05/17 Spironolactone [Aldactone -] 25 mg PO DAILY #30 tablet 04/05/17 Review of Systems - Review of Systems Able to Perform ROS?: Yes Comments:: 05/17/17 00:39 CONSTITUTIONAL: No reported: Fever, Chills, Diaphoresis, Generalized Weakness, Malaise, Loss of Appetite HEENT: No reported: Rhinorrhea, Nasal Congestion, Throat Pain, Throat Swelling, Difficulty Swallowing, Mouth Swelling, Ear Pain, Eye Pain, Visual Changes CARDIOVASCULAR: +chest pain. No reported:, Syncope, Palpitations, Irregular Heart Rate, Lightheadedness, Peripheral Edema RESPIRATORY: No reported: Cough, Shortness of Breath, SOB with Exertion, Orthopnea, Wheezing , Stridor, Hemoptysis GASTROINTESTINAL: +abdominal pain. +Nausea. +Vomiting. No reported: Abdominal Distension, Diarrhea, Constipation, Melena, Hematochezia GENITOURINARY: No reported: Dysuria, Frequency, Urgency, Hesitancy, Flank Pain, Genital Pain MUSCULOSKELETAL: No reported: Myalgia, Arthralgia, Joint Swelling, Back pain, Neck Pain SKIN: No reported: Rash, Itching, Pallor HEMATOLOGIC/IMMUNOLOGIC: No reported: Easy Bleeding, Easy Bruising, Lymphadenopathy, Frequent infections ENDOCRINE: No reported: Unexplained Weight Gain, Unexplained Weight Loss, Heat Intolerance , Cold Intolerance NEUROLOGIC: No reported: Headache, Focal Weakness, Paresthesias, Vertigo, Lightheadedness, Unsteady Gait, Seizure, Mental Status Changes, Incontinence PSYCHIATRIC: No reported: Anxiety, Depression All Other Systems: Reviewed and Negative <Alphonse Elam - Last Filed: 05/17/17 00:39> *Physical Exam - Vital Signs Last Vital Signs Temp Pulse Resp BP Pulse Ox 98.2 F 92 H 21 130/85 98 05/16/17 14:32 05/16/17 14:32 05/16/17 14:32 05/16/17 14:32 05/16/17 14:32 - Physical Exam Comments: 05/17/17 00:40 GENERAL: The patient is awake, alert, and fully oriented, Nontoxic - in no acute distress. HEAD: Normocephalic, atraumatic. EYES: extraocular movements intact, sclera anicteric, conjunctiva clear. ENT: Normal voice, Moist mucous membranes. NECK: Normal range of motion, No JVD LUNGS: Breath sounds equal, clear to auscultation bilaterally. No wheezes, no rhonchi, no rales. HEART: Regular rate and rhythm, normal S1 and S2 without murmur, rub or gallop. ABDOMEN: +Subcutaneous object palpation in the mid abdomen, states its his lap band access. Soft, nontender, normoactive bowel sounds. No guarding, no rebound. No masses. No CVA tenderness EXTREMITIES: +Trace edema in lower extrem with no calf tenderness. Negative Homans signs Normal range of motion, no edema. No clubbing or cyanosis. No cords, erythema, or tenderness. NEUROLOGICAL: No facial asymmetry, Normal speech, normal gait. PSYCH: Normal mood, normal affect. SKIN: Warm, Dry, normal turgor. <Alphonse Elam - Last Filed: 05/17/17 00:39> - Vital Signs Last Vital Signs Temp Pulse Resp BP Pulse Ox 98.2 F 92 H 21 130/85 98 05/16/17 14:32 05/16/17 14:32 05/16/17 14:32 05/16/17 14:32 05/16/17 14:32 <Tate Buckley - Last Filed: 05/17/17 02:25> Heart Score/ECG Review - ECG Impressions Comment:: 05/17/17 00:23 Twelve-lead EKG was performed and reviewed by me. There is normal sinus rhythm with a normal rate. Rate of [address] Short [place] interval No ST changes suggestive of acute ischemia <Tate Buckley - Last Filed: 05/17/17 02:25> ED Treatment Course - LABORATORY CBC & Chemistry Diagram: 05/16/17 16:44 05/16/17 16:44 - ADDITIONAL ORDERS Additional order review: Laboratory Results 05/16/17 05/16/17 05/16/17 16:44 16:44 16:44 PT with INR 14.30 H INR 1.27 H Sodium 136 Potassium 3.1 L Chloride 100 Carbon Dioxide 30 Anion Gap 6 L BUN 8 D Creatinine 0.7 Creat Clearance w eGFR > 60 Random Glucose 111 H D Calcium 8.3 L Magnesium 1.2 L D Total Bilirubin 4.0 H D AST 96 H D ALT 69 D Alkaline Phosphatase 188 H D Total Protein 8.1 Albumin 3.5 D Lipase 368 Urine Color [place] Urine Appearance Clear Urine pH 8.0 D Ur Specific [place] 1.019 Urine Protein 1+ H Urine Glucose (UA) Negative Urine Ketones Negative Urine Blood 2+ H Urine Nitrite Negative Urine Bilirubin Negative Urine Urobilinogen 2.0 Ur Leukocyte Esterase Negative Urine WBC (Auto) 1 Urine RBC (Auto) 22 Urine Mucus Rare 05/16/17 15:00 Influenza Types A,B Antigen (LUI) - Final Nasopharyngeal Swab - Final 05/16/17 16:44 RBC 4.64 MCV 96.7 H MCHC 34.1 RDW 13.9 MPV 7.0 L Neutrophils % 57.7 D Lymphocytes % 23.3 D Monocytes % 17.7 H Eosinophils % 0.6 D Basophils % 0.7 - Medications Given in the ED: ED Medications Discontinued Medications Generic Name Dose Route Start Last Admin Trade Name Julius PRN Reason Stop Dose Admin Al Hydroxide/Mg Hydroxide 30 ml 05/16/17 16:17 05/16/17 16:54 Mylanta Suspension - PO 05/16/17 16:18 30 ml ONCE ONE Administration Sodium Chloride 1,000 mls @ 1,000 mls/hr 05/16/17 16:18 05/16/17 16:54 Normal Saline - IV 05/16/17 17:17 1,000 mls/hr .Q1H ONE Administration Ibuprofen 400 mg 05/16/17 18:20 05/16/17 18:40 Motrin - PO 05/16/17 18:21 400 mg ONCE ONE Administration Metoclopramide HCl 10 mg 05/16/17 20:01 05/16/17 21:03 Reglan Injection - IVPUSH 05/16/17 20:02 10 mg ONCE ONE Administration Metoclopramide HCl 10 mg 05/16/17 23:09 05/16/17 23:11 Reglan Injection - IVPUSH 05/16/17 23:10 Not Given ONCE ONE Ondansetron HCl 4 mg 05/16/17 15:25 05/16/17 16:54 Zofran Odt - SL 05/16/17 15:26 4 mg ONCE ONE Administration Potassium Chloride 40 meq 05/16/17 18:18 05/16/17 18:40 Potassium Chloride Oral Liquid PO 05/16/17 18:19 40 meq ONCE ONE Administration <Alphonse Elam - Last Filed: 05/17/17 00:39> - LABORATORY CBC & Chemistry Diagram: 05/16/17 16:44 05/16/17 16:44 - ADDITIONAL ORDERS Additional order review: 05/16/17 15:00 Influenza Types A,B Antigen (LIU) - Final Nasopharyngeal Swab - Final <Tate Buckley - Last Filed: 05/17/17 02:25> Medical Decision Making - Medical Decision Making 05/16/17 16:19 47y M hx of seizures, alcohol abuse, liver cirrhosis, peripheral neuropathy, chronic back pain, bipolar disorder, HTN, and hypokalemia, presenting with complaint of body aches, nausea/vomiting, burning epigastric/abdominal pain for the past 5 days. pt denies any sob, hemptysis, bpr, leg swelling, hemetemsis, diarrhea. on exam pt is no acute distress abd soft nontender cardiac/pulm unremarkable and pt is in general well appearing flu swab sent in triage that was normal ddx: gastritis, pancreattisi, influenza, low suspicion of acs will ck cbc, cmp, lipsae, ua, ekg to screen for acs pepcid/maalox will erassess A portion of this note was documented by scribe services under my direction. I have reviewed the details of the note, within reason, and agree with the documentation with the following case summary and management plan written by me 05/16/17 21:09 tbili elevated to 4 will ck GB US 05/17/17 00:22 GB US shows cholelithiasis, chronically thickened GB wall awaiting call back from GI 05/17/17 01:17 case hussain Crystal agree with observation for GI eval Case discussed in detail with admitting physician including history, physical exam and ancillary studies. Admitting physician has assumed care for the patient, will follow all pending diagnostics and will complete the evaluation and treatment. <Tate Buckley - Last Filed: 05/17/17 02:25> *DC/Admit/Observation/Transfer - Attestations Scribe Attestion: 05/17/17 00:40 Documentation prepared by Alphonse Elam, acting as medical billing manager for Tate Buckley MD, /DO. <Alphonse Elam - Last Filed: 05/17/17 00:39> - Discharge Dispostion Admit: Yes <Tate Buckley - Last Filed: 05/17/17 02:25> Diagnosis at time of Disposition: Total bilirubin, elevated Cholelithiasis Qualifiers: Cholelithiasis location: other site Biliary obstruction: without biliary obstruction Qualified Code(s): K80.80 - Other cholelithiasis without obstruction Hematuria Qualifiers: Hematuria type: unspecified type Qualified Code(s): R31.9 - Hematuria, unspecified - Discharge Dispostion Condition at time of disposition: Stable
[2017-05-16] MEDS ORDERED: FAMOTIDINE 20 MG/50 ML IVPB 20 MG/50 ML MG IVPB ONE (16:48)
[2017-05-16] MEDS ORDERED: MAG HYDROX/AL HYDROX/SIMETH 30 ML UNIT-DOSE CUP ONE (16:48)
[2017-05-16 17:03] LABS: BASO % 0.7 % (0-2.0); EOS % 0.6 % (0-4.5); HEMATOCRIT 44.9 % (35.4-49); HEMOGLOBIN 15.3 GM/dL (11.7-16.9); LYMPH % 23.3 % (8-40); MCHC 34.1 g/dl (32.0-35.9); MEAN CELL VOLUME 96.7 fl (80-96); MONO % 17.7 % (3.8-10.2); NEUT % 57.7 % (42.8-82.8); PLATELET COUNT 181 K/MM3 (134-434); RBC 4.64 M/mm3 (4.00-5.60); RDW 13.9 % (11.9-15.9); WHITE BLOOD COUNT 7.2 K/mm3 (4.0-10.0)
[2017-05-16 17:04] LABS: URINE APPEARANCE CLEAR; URINE BILIRUBIN NEGATIVE (NEGATIVE); URINE BLOOD 2+ (NEGATIVE); URINE COLOR AMBER; URINE GLUCOSE (UA) NEGATIVE (NEGATIVE); URINE KETONE NEGATIVE (NEGATIVE); URINE LEUK ESTERASE NEGATIVE (NEGATIVE); URINE NITRITE NEGATIVE (NEGATIVE)
[2017-05-16 17:05] LABS: URINE PROTEIN 1+ (NEGATIVE)
[2017-05-16 17:13] LABS: URINE MUCUS RARE
[2017-05-16 17:16] LABS: INR 1.27 (0.82-1.09); PROTHROMBIN TIME (PATIENT) 14.3 SEC (9.98-11.88)
[2017-05-16 17:45] LABS: ALBUMIN 3.5 g/dl (3.4-5.0); ANION GAP 6 (8-16); BLOOD UREA NITROGEN 8 mg/dL (7-18); CALCIUM 8.3 mg/dL (8.5-10.1); CHLORIDE 100 mmol/L (98-107); CO2 30 mmol/L (21-32); CREATININE 0.7 mg/dL (0.7-1.3); GLUCOSE,RANDOM 111 mg/dL (74-106); SODIUM 136 mmol/L (136-145); TOT PROT 8.1 g/dl (6.4-8.2)
[2017-05-16 18:04] LABS: ALK PHOS 188 U/L (45-117); SGPT/ALT 69 U/L (12-78)
[2017-05-16 18:07] LABS: LIPASE 368 U/L (73-393); MAGNESIUM 1.2 mg/dL (1.8-2.4); POTASSIUM 3.1 mmol/L (3.5-5.1); SGOT/AST 96 U/L (15-37)
[2017-05-16] MEDS ORDERED: POTASSIUM CHLORIDE ORAL LIQUID 20 MEQ/15 ML PO ONE (18:18)
[2017-05-16] MEDS ORDERED: IBUPROFEN 400 MG TABLET (FP) PO ONE ×2 (18:20→18:36)
[2017-05-16] MEDS ORDERED: POTASSIUM CHLORIDE ORAL LIQUID 20 MEQ/15 ML ONE (18:36)
[2017-05-16] MEDS ORDERED: METOCLOPRAMIDE HCL INJECTION 10 MG/2 ML VIAL IVPUSH ONE ×2 (20:01→23:09)
[2017-05-16] MEDS ORDERED: METOCLOPRAMIDE HCL INJECTION 10 MG/2 ML VIAL ONE (20:46)
[2017-05-16] MEDS ORDERED: FAMOTIDINE IV 20 MG/12 ML VIAL IVPUSH SCH (22:00)
[2017-05-17] MEDS ORDERED: MAGNESIUM SULF 50% (8.12 MEQ/2 ML-1 GM VIAL) IVPB ONE ×2 (01:41→09:50)
[2017-05-17] MEDS ORDERED: D5-1/2NS+20 MEQ KCL - 20 MEQ/1,000 ML INFUS.BAG IV SCH (01:45)
[2017-05-17] MEDS ORDERED: IBUPROFEN 400 MG TABLET (FP) PO ONE (02:24)
[2017-05-17] MEDS ORDERED: IBUPROFEN 600 MG TABLET (FP) PO ONE (02:32)
--- NOTE | 2017-05-17 02:34 | HP ---
CHIEF COMPLAINT: CP, N/V, fatigue PCP: Victor Manuel HISTORY OF PRESENT ILLNESS: This is a 47 year old male with a past medical history significant for ETOH, cirrhosis, fatty liver who presented with a 5 day history of multiple complaints including Chest pain, upper abdominal pain, N/V, fatigue, small pellet like stools x 2 days, gen weakness and body aches. 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 Drugs: pt denies Family History: father ETOH mother brother sister all alive and well one son one daughter no medical problems Allergies No Known Allergies Allergy (Verified 04/23/17 05:14) HOME MEDICATIONS: 3 Medication Instructions Recorded Gabapentin [Neurontin -] 600 mg PO TID 05/30/16 Furosemide [Lasix] 40 mg PO DAILY #3 tablet 06/23/16 Cyclobenzaprine HCl [Flexeril -] 10 mg PO TID 03/25/17 Levetiracetam [Keppra -] 500 mg PO BID 03/25/17 Folic Acid - 1 mg PO DAILY #30 tablet 03/27/17 Lactobacillus Acidophilus 1 each PO DAILY #10 capsule 03/27/17 [Probiotic] Tamsulosin HCl [Flomax -] 0.4 mg PO DAILY@0830 #30 cap.er.24h 03/27/17 Thiamine HCl [Vitamin B1 -] 100 mg PO HS #30 tablet 03/27/17 Polyethylene Glycol 3350 [Miralax 17 gm PO DAILY bottle 04/05/17 119 gm Btl -] Spironolactone [Aldactone -] 25 mg PO DAILY #30 tablet 04/05/17 REVIEW OF SYSTEMS CONSTITUTIONAL: Present: generalized weakness, malaise Absent: fever, chills, diaphoresis, loss of appetite, weight change HEENT: Present: burning eyes Absent: rhinorrhea, nasal congestion, throat pain, throat swelling, difficulty swallowing, mouth swelling, ear pain, eye pain, visual changes CARDIOVASCULAR: Present: chest pain Absent: syncope, palpitations, irregular heart rate, lightheadedness, peripheral edema RESPIRATORY: Absent: cough, shortness of breath, dyspnea with exertion, orthopnea, wheezing, stridor, hemoptysis GASTROINTESTINAL: Present: abdominal pain, nausea, vomiting Absent: abdominal distension, diarrhea, constipation, melena, hematochezia GENITOURINARY: Absent: dysuria, frequency, urgency, hesitancy, hematuria, flank pain, genital pain MUSCULOSKELETAL: Absent: myalgia, arthralgia, joint swelling, back pain, neck pain SKIN: Absent: rash, itching, pallor HEMATOLOGIC/IMMUNOLOGIC: Absent: easy bleeding, easy bruising, lymphadenopathy, frequent infections ENDOCRINE: Absent: unexplained weight gain, unexplained weight loss, heat intolerance, cold intolerance NEUROLOGIC: Absent: headache, focal weakness or paresthesias, dizziness, unsteady gait, seizure, mental status changes, bladder or bowel incontinence PSYCHIATRIC: Absent: anxiety, depression, suicidal or homicidal ideation, hallucinations. PHYSICAL EXAMINATION Vital Signs - 24 hr 3 05/16/17 14:32 Temperature 98.2 F Pulse Rate 92 H Respiratory 21 Rate Blood Pressure 130/85 O2 Sat by Pulse 98 Oximetry (%) GENERAL: Awake, alert, and fully oriented, in no acute distress. HEAD: Normal with no signs of trauma. EYES: Pupils equal, round and reactive to light, extraocular movements intact, sclera anicteric, conjunctiva red, no discharge. No lid lag. EARS, NOSE, THROAT: Ears normal, nares patent, oropharynx clear without exudates. Moist mucous membranes. NECK: Normal range of motion, supple without lymphadenopathy, JVD, or masses. LUNGS: Breath sounds equal, clear to auscultation bilaterally. No wheezes, and no crackles. No accessory muscle use. HEART: Regular rate and rhythm, normal S1 and S2 without murmur, rub or gallop. ABDOMEN: Soft, tender at site of lap band access epigastric region, not distended, normoactive bowel sounds, no guarding, no rebound, no masses. No hepatomegaly or splenomegaly. MUSCULOSKELETAL: Normal range of motion at all joints. No bony deformities or tenderness. No CVA tenderness. UPPER EXTREMITIES: 2+ pulses, warm, well-perfused. No cyanosis. No clubbing. No peripheral edema. LOWER EXTREMITIES: 2+ pulses, warm, well-perfused. No calf tenderness. No peripheral edema. NEUROLOGICAL: Cranial nerves II-XII intact. Normal speech. Normal gait. PSYCHIATRIC: Cooperative. Good eye contact. Appropriate mood and affect. SKIN: Warm, dry, normal turgor, no rashes or lesions noted, normal capillary refill. Laboratory Results - last 24 hr 3 05/16/17 05/16/17 05/16/17 15:00 16:44 16:44 WBC 7.2 RBC 4.64 Hgb 15.3 Hct 44.9 MCV 96.7 H MCH 33.0 MCHC 34.1 RDW 13.9 Plt Count 181 MPV 7.0 L Neutrophils % 57.7 D Lymphocytes % 23.3 D Monocytes % 17.7 H Eosinophils % 0.6 D Basophils % 0.7 PT with INR 14.30 H INR 1.27 H Sodium Potassium Chloride Carbon Dioxide Anion Gap BUN Creatinine Creat Clearance w eGFR Random Glucose Calcium Magnesium Total Bilirubin AST ALT Alkaline Phosphatase Total Protein Albumin Lipase Urine Color Urine Appearance Urine pH Ur Specific [place] Urine Protein Urine Glucose (UA) Urine Ketones Urine Blood Urine Nitrite Urine Bilirubin Urine Urobilinogen Ur Leukocyte Esterase Urine WBC (Auto) Urine RBC (Auto) Urine Mucus HIV 1&2 Antibody Screen Negative HIV P24 Antigen Negative 3 05/16/17 05/16/17 16:44 16:44 WBC RBC Hgb Hct MCV MCH MCHC RDW Plt Count MPV Neutrophils % Lymphocytes % Monocytes % Eosinophils % Basophils % PT with INR INR Sodium 136 Potassium 3.1 L Chloride 100 Carbon Dioxide 30 Anion Gap 6 L BUN 8 D Creatinine 0.7 Creat Clearance w eGFR > 60 Random Glucose 111 H D Calcium 8.3 L Magnesium 1.2 L D Total Bilirubin 4.0 H D AST 96 H D ALT 69 D Alkaline Phosphatase 188 H D Total Protein 8.1 Albumin 3.5 D Lipase 368 Urine Color [place] Urine Appearance Clear Urine pH 8.0 D Ur Specific [place] 1.019 Urine Protein 1+ H Urine Glucose (UA) Negative Urine Ketones Negative Urine Blood 2+ H Urine Nitrite Negative Urine Bilirubin Negative Urine Urobilinogen 2.0 Ur Leukocyte Esterase Negative Urine WBC (Auto) 1 Urine RBC (Auto) 22 Urine Mucus Rare HIV 1&2 Antibody Screen HIV P24 Antigen ECG Sinus rhythm with sinus arrhythmia, short NC and occ PVC vent rate 73, QTC [address]/T wave changes Radiology Results US gallbladder Impression: 1. Cholelithiasis. No evidence of acute cholecystitis. Mild gallbladder wall thickening is nonspecific, similar to 06/30/2016 sonogram, possibly attributed to chronic cholecystitis. 2. Hepatic steatosis. Reported By: Alexx Ellison DO 05/16/17 2315 KUB Impression: Paucity of gas throughout the small bowel and large bowel limiting evaluation. No dilated loops of bowel to suggest obstruction. Correlate clinically. Reported By: Alexx Ellison DO 05/16/172026 ASSESSMENT/PLAN: 47yM with PMH ETOH, cirrhosis, fatty liver, seizure d/o (true vs pseudoseizures vs ETOH withdrawal), sleep apnea, chronic LBP/herniation L2-S1 and C3-C4 presented to the ED with multiple complaints including chest pain, abdominal pain, N/V. cholelithiasis in setting of elevated bili and LFTs - trend LFTs, if remain elevated consider MRCP or HIDA - consider surgical consult - no WBC, no fever, hold on ABT hypomagnesia/hypkalemia - repleted, repeat in am Cirrhosis/fatty liver - elevated LFTs may be due to worsening liver disease - consider GI consult - cont home spironolactone, unclear why pt on lasix, hold same. dry eyes - start artificial tears chronic LBP - pt states he is on oxycodone 20mg QID prn at home. [facility] registry confirms this, oxycodone ordered - cont flexeril and neurontin seizure disorder - cont keppra BPH - cont home flomax ETOH abuse - no s/s withdrawal, last drink >24h ago, will monitor for s/s withdrawal and initiate librium if occur - cont folic acid and thiamine DVT PPX - chemoprophylaxis deferred, anticipated LOS <48h FEN - D51/2NS+20KCl @ 75cc/hr while npo (shortage of NS throughout hospital and pt K was low) - BMP in am - NPO for now, advance diet to clears in am if feeling better. Dispo: Pt admitted to observation status for further monitoring of his emergent condition. Visit type - Emergency Visit Emergency Visit: Yes ED Registration Date: 05/16/17 Care time: The patient presented to the Emergency Department on the above date and was hospitalized for further evaluation of their emergent condition. - New Patient This patient is new to me today: Yes Date on this admission: 05/17/17 - Critical Care Critical Care patient: No
[2017-05-17 04:10] VITALS: BMI 35.7
[2017-05-17] MEDS: oxyCODONE HCL 5 MG TABLET PO PRN ×3 (06:21→21:14)
[2017-05-17] MEDS: GABAPENTIN 300 MG CAPSULE (FP) PO SCH ×3 (06:21→21:15)
[2017-05-17] MEDS: CYCLOBENZAPRINE HCL 10 MG TABLET (FP) PO SCH ×3 (06:22→21:15)
[2017-05-17 08:23] LABS: EOS % 2.5 % (0-4.5); HEMATOCRIT 43.3 % (35.4-49); HEMOGLOBIN 14.6 GM/dL (11.7-16.9); LYMPH % 33.3 % (8-40); MCHC 33.8 g/dl (32.0-35.9); MEAN CELL VOLUME 97.6 fl (80-96); MEAN PLT VOLUME 7.2 fl (7.5-11.1); MONO % 13.6 % (3.8-10.2); NEUT % 49.6 % (42.8-82.8); PLATELET COUNT 135 K/MM3 (134-434); RBC 4.43 M/mm3 (4.00-5.60); RDW 13.9 % (11.9-15.9); WHITE BLOOD COUNT 6.8 K/mm3 (4.0-10.0)
[2017-05-17] MEDS: SPIRONOLACTONE 25 MG TABLET (FP) PO SCH ×2 (08:38→09:28)
[2017-05-17] MEDS: TAMSULOSIN HCL 0.4 MG CAP.ER.24H (FP) PO SCH (08:38)
[2017-05-17 09:04] LABS: CHLORIDE 102 mmol/L (98-107); POTASSIUM 3.4 mmol/L (3.5-5.1); SODIUM 137 mmol/L (136-145)
[2017-05-17 09:10] LABS: ALBUMIN 3.3 g/dl (3.4-5.0); ALK PHOS 171 U/L (45-117); ANION GAP 6 (8-16); BILIRUBIN,TOTAL 4.2 mg/dL (0.2-1.0); BLOOD UREA NITROGEN 15 mg/dL (7-18); CALCIUM 8.2 mg/dL (8.5-10.1); CO2 29 mmol/L (21-32); CREATININE 0.7 mg/dL (0.7-1.3); GLUCOSE,RANDOM 108 mg/dL (74-106); MAGNESIUM 1.7 mg/dL (1.8-2.4); PHOSPHOROUS 3.1 mg/dL (2.5-4.9); SGOT/AST 76 U/L (15-37); SGPT/ALT 58 U/L (12-78); TOT PROT 7.3 g/dl (6.4-8.2)
[2017-05-17] MEDS ORDERED: PT OWN MED DRAWER 7, Y5N ONE (09:23)
[2017-05-17] MEDS: LACTOBACILLUS ACIDOPHILUS 1 EACH TAB (FP) PO SCH (09:30)
[2017-05-17] MEDS: FOLIC ACID 1 MG TABLET (FP) PO SCH (09:30)
[2017-05-17] MEDS: levETIRAcetam 500 MG TABLET (FP) PO SCH ×2 (09:30→21:15)
[2017-05-17] MEDS: POLYETHYLENE GLYCOL 3350 119 GM BTL PO SCH (09:30)
[2017-05-17] MEDS: FAMOTIDINE 20 MG/50 ML IVPB 20 MG/50 ML MG IVPB SCH ×2 (10:36→21:15)
[2017-05-17] MEDS ORDERED: POTASSIUM CHLORIDE ORAL LIQUID 20 MEQ/15 ML PO ONE (10:45)
[2017-05-17] MEDS ORDERED: MAGNESIUM 1GM/D5W - 1 GM/100 ML IVPB IVPB ONE (11:00)
--- NOTE | 2017-05-17 11:58 | HOSP ---
Physical Examination Vital Signs: Vital Signs Temperature 98.7 F 05/17/17 08:30 Pulse Rate 90 05/17/17 09:17 Respiratory Rate 18 05/17/17 09:17 Blood Pressure 140/98 05/17/17 09:17 O2 Sat by Pulse Oximetry (%) 98 05/17/17 03:53 Constitutional: Yes: Calm Eyes: Yes: Other (mild red conjuntiva and icterus) Cardiovascular: Yes: Regular Rate and Rhythm, S1, S2 Respiratory: Yes: Regular, CTA Bilaterally Gastrointestinal: Yes: Normal Bowel Sounds, Soft Edema: No Neurological: Yes: Alert, Oriented, Cran Nerves II-XII Intact Labs: CBC, BMP 05/17/17 07:00 05/17/17 07:00 Hospitalist Encounter Assessment: Microbiology 05/16/17 15:00 Influenza Types A,B Antigen (LIU) - Final Nasopharyngeal Swab - Final Assessment: 47 year old male with PMH ETOH, cirrhosis, fatty liver, seizure d/t (true vs pseudoseizures vs ETOH withdrawal), sleep apnea, chronic LBP/ herniation L2-S1 and C3-C4 presented to the ED with multiple complaints including chest pain, abdominal pain, N/V. Plan: 1. Cholelithiasis in setting of elevated bili and LFTs - Liver enzymes overall improving, alk phos down trending, has been higher in the past - Will continue to trend 2. Hypomagnesia/hypkalemia - Continue to replete IV mg - Replete potassium 40meq x1 now - Stop IVF w/ kcl - Start clear liquid diet 3. Viral gastroenteritis - Improved, no further nausea/vomiting - Tolerating clears, advance diet 4. Cirrhosis/fatty liver - Has detoxed in the past, states he is not an alcoholic - Continue spironolactone - Hold lasix 5. Dry eyes - Artificial tears 6. Chronic LBP d/t traumatic injury - Continue home pain regimen - Continue flexeril and neurontin 7. Seizure disorder - Continue keppra 8. BPH - Cont Flomax 9. ETOH abuse - No signs of withdrawal at this time - Cont folic acid and thiamine 10. DVT PPX - OOB ambulation, lovenox sq
--- NOTE | 2017-05-17 13:06 | CON.GI ---
Consult Consult Specialty:: GI - History of Present Illness History of Present Illness: Chart reviewed. 47 yom with ongoing alcohol use, hx of alcohol abuse, liver cirrhosis, sleep apnea, extensive tattoos, chronic LBP/herniation L2-S1 and C3-C4 presented to the ED with multiple complaints including chest pain, abdominal pain, N/V. In ED found to have elevated bili, ALP, transaminitis and fatty liver with cholelithiasis w/o signs of inflammation, or or biliary obstruction on RUQ US. Denies fluctuating abdominal girth, LE swelling, altered mental status. Has "few " drinks on May 15. - History Source History Provided By: Patient, Medical Record Limitations to Obtaining History: No Limitations - Past Medical History VP CLINICAL RESEARCH: Yes: Seizure (questionable vs pseudoseizures ) Cardio/Vascular: Yes: HTN Pulmonary: Yes: Sleep Apnea Hepatobiliary: Yes: Cirrhosis Psych: Yes: Addictions (alcohol) Musculoskeletal: Yes: Chronic low back pain - Past Surgical History Past Surgical History: Yes: Arthrosocopy (left shoulder, right knee), Bariatric Surgery (gastric band) - Alcohol/Substance Use Hx Alcohol Use: Yes Number of Drinks Daily: 5 History of Substance Use: reports: None Date of Last Use: 03/24/17 - Smoking History Smoking history: Never smoked Have you smoked in the past 12 months: No Aproximately how many cigarettes per day: 0 - Social History Usual Living Arrangement: With Parent (mother) ADL: Independent 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 of Recent Travel: No Home Medications - Allergies Allergies/Adverse Reactions: Allergies Allergy/AdvReac Type Severity Reaction Status Date / Time No Known Allergies Allergy Verified 04/23/17 05:14 - Home Medications Home Medications: Ambulatory Orders Gabapentin [Neurontin -] 600 mg PO TID 05/30/16 Furosemide [Lasix] 40 mg PO DAILY #3 tablet 06/23/16 Cyclobenzaprine HCl [Flexeril -] 10 mg PO TID 03/25/17 Levetiracetam [Keppra -] 500 mg PO BID 03/25/17 Folic Acid - 1 mg PO DAILY #30 tablet 03/27/17 Lactobacillus Acidophilus [Probiotic] 1 each PO DAILY #10 capsule 03/27/17 Tamsulosin HCl [Flomax -] 0.4 mg PO DAILY@0830 #30 cap.er.24h 03/27/17 Thiamine HCl [Vitamin B1 -] 100 mg PO HS #30 tablet 03/27/17 Polyethylene Glycol 3350 [Miralax 119 gm Btl -] 17 gm PO DAILY bottle 04/05/17 Spironolactone [Aldactone -] 25 mg PO DAILY #30 tablet 04/05/17 Family Disease History - Family Disease History Family Disease History: Other: Father (Alive: 65 alcoholic), Mother (Alive: 62: healthy), Brother (Alive: Healthy), Sister (Alive: Healthy), Son (Healthy), Daughter (Healthy) Review of Systems Findings/Remarks: As per HPI, H&P Physical Exam-GI Vital Signs: Vital Signs Temperature 98.7 F 05/17/17 08:30 Pulse Rate 90 05/17/17 09:17 Respiratory Rate 18 05/17/17 09:17 Blood Pressure 140/98 05/17/17 09:17 O2 Sat by Pulse Oximetry (%) 98 05/17/17 03:53 Constitutional: Yes: Well Nourished, No Distress, Calm Eyes: Yes: Sclera Icterus (minimally) Neck: Yes: Supple, Trachea Midline Cardiovascular: Yes: Regular Rate and Rhythm Respiratory: Yes: Regular ...Auscultate: Yes: Normoactive Bowel Sounds ...Palpate: Yes: Soft. No: Firm/Rigid, Guarding, Tenderness, Tenderness, Epigastium Edema: No Neurological: Yes: Alert, Oriented Labs: CBC, BMP 05/17/17 07:00 05/17/17 07:00 INR, PTT INR 1.27 (0.82-1.09) H 05/16/17 16:44 Laboratory Tests 05/16/17 05/16/17 05/16/17 15:00 16:44 16:44 WBC 7.2 RBC 4.64 Hgb 15.3 Hct 44.9 MCV 96.7 H MCH 33.0 MCHC 34.1 RDW 13.9 Plt Count 181 MPV 7.0 L Neutrophils % 57.7 D Lymphocytes % 23.3 D Monocytes % 17.7 H Eosinophils % 0.6 D Basophils % 0.7 PT with INR 14.30 H INR 1.27 H Sodium Potassium Chloride Carbon Dioxide Anion Gap BUN Creatinine Creat Clearance w eGFR Random Glucose Calcium Phosphorus Magnesium Total Bilirubin AST ALT Alkaline Phosphatase Total Protein Albumin Lipase Urine Color Urine Appearance Urine pH Ur Specific [place] Urine Protein Urine Glucose (UA) Urine Ketones Urine Blood Urine Nitrite Urine Bilirubin Urine Urobilinogen Ur Leukocyte Esterase Urine WBC (Auto) Urine RBC (Auto) Urine Mucus HIV 1&2 Antibody Screen Negative HIV P24 Antigen Negative 05/16/17 05/16/17 05/17/17 16:44 16:44 07:00 WBC 6.8 RBC 4.43 Hgb 14.6 Hct 43.3 MCV 97.6 H MCH 33.0 MCHC 33.8 RDW 13.9 Plt Count 135 D MPV 7.2 L Neutrophils % 49.6 Lymphocytes % 33.3 D Monocytes % 13.6 H Eosinophils % 2.5 D Basophils % 1.0 PT with INR INR Sodium 136 Potassium 3.1 L Chloride 100 Carbon Dioxide 30 Anion Gap 6 L BUN 8 D Creatinine 0.7 Creat Clearance w eGFR > 60 Random Glucose 111 H D Calcium 8.3 L Phosphorus Magnesium 1.2 L D Total Bilirubin 4.0 H D AST 96 H D ALT 69 D Alkaline Phosphatase 188 H D Total Protein 8.1 Albumin 3.5 D Lipase 368 Urine Color [place] Urine Appearance Clear Urine pH 8.0 D Ur Specific [place] 1.019 Urine Protein 1+ H Urine Glucose (UA) Negative Urine Ketones Negative Urine Blood 2+ H Urine Nitrite Negative Urine Bilirubin Negative Urine Urobilinogen 2.0 Ur Leukocyte Esterase Negative Urine WBC (Auto) 1 Urine RBC (Auto) 22 Urine Mucus Rare HIV 1&2 Antibody Screen HIV P24 Antigen 05/17/17 07:00 WBC RBC Hgb Hct MCV MCH MCHC RDW Plt Count MPV Neutrophils % Lymphocytes % Monocytes % Eosinophils % Basophils % PT with INR INR Sodium 137 Potassium 3.4 L Chloride 102 Carbon Dioxide 29 Anion Gap 6 L BUN 15 D Creatinine 0.7 Creat Clearance w eGFR > 60 Random Glucose 108 H Calcium 8.2 L Phosphorus 3.1 D Magnesium 1.7 L D Total Bilirubin 4.2 H AST 76 H D ALT 58 Alkaline Phosphatase 171 H Total Protein 7.3 Albumin 3.3 L Lipase Urine Color Urine Appearance Urine pH Ur Specific [place] Urine Protein Urine Glucose (UA) Urine Ketones Urine Blood Urine Nitrite Urine Bilirubin Urine Urobilinogen Ur Leukocyte Esterase Urine WBC (Auto) Urine RBC (Auto) Urine Mucus HIV 1&2 Antibody Screen HIV P24 Antigen Imaging - Results Ultrasound: Report Reviewed Problem List - Problems (1) Cholelithiasis Code(s): K80.20 - CALCULUS OF GALLBLADDER W/O CHOLECYSTITIS W/O OBSTRUCTION Qualifiers: Cholelithiasis location: other site Biliary obstruction: without biliary obstruction Qualified Code(s): K80.80 - Other cholelithiasis without obstruction (2) Total bilirubin, elevated Code(s): R17 - UNSPECIFIED JAUNDICE (3) Cirrhosis Code(s): K74.60 - UNSPECIFIED CIRRHOSIS OF LIVER Qualifiers: Hepatic cirrhosis type: alcoholic cirrhosis Ascites presence: without ascites Qualified Code(s): K70.30 - Alcoholic cirrhosis of liver without ascites (4) Fatty liver Code(s): K76.0 - FATTY (CHANGE OF) LIVER, NOT ELSEWHERE CLASSIFIED (5) History of cirrhosis of liver Code(s): Z87.19 - PERSONAL HISTORY OF OTHER DISEASES OF THE DIGESTIVE SYSTEM (6) Alcohol dependence with uncomplicated withdrawal Code(s): F10.230 - ALCOHOL DEPENDENCE WITH WITHDRAWAL, UNCOMPLICATED Assessment/Plan A 47 yom with ongoing alcohol use and possibly underlying alcoholic liver cirrhosis present with recent history of fever, chills, nausea and vomiting. Cholestasis and cholelithiasis in settings of normal CBD by US sudy. No history of hematemesis, hematochezia, melena. No signs of ascites on exam or US. Normal renal function. No signs of encephalopathy, SBP, HRS, cholangitis r/o choledocolithiasis. Cholestasis may also be related to underlying liver disease. MRCP Daily CBCCMP, direct bili, PT/INR NPO except medications and water today IVF/PO hydration will follow
--- NOTE | 2017-05-17 13:17 | EKG ---
Test Reason : Blood Pressure : / mmHG Vent. Rate : 073 BPM Atrial Rate : 073 BPM P-R Int : 094 ms QRS Dur : 100 ms QT Int : 412 ms P-R-T Axes : 080 047 058 degrees QTc Int : 453 ms SINUS RHYTHM WITH SINUS ARRHYTHMIA WITH SHORT RI WITH OCCASIONAL PREMATURE VENTRICULAR COMPLEXES NONSPECIFIC T WAVE ABNORMALITY BORDERLINE ECG WHEN COMPARED WITH ECG OF 09-APR-2017 01:36, PREMATURE VENTRICULAR COMPLEXES ARE NOW PRESENT RI INTERVAL HAS DECREASED Confirmed by KASEY SHERMAN MD ([id number]) on 05/17/2017 1:17:14 PM Referred By: Confirmed By:KASEY SHERMAN MD
[2017-05-17 15:35] LABS: BILIRUBIN,DIRECT 0.6 mg/dL (0.0-0.2)
[2017-05-17 19:14] LABS: HEMATOCRIT 41.8 % (35.4-49); HEMOGLOBIN 14.1 GM/dL (11.7-16.9); MCHC 33.7 g/dl (32.0-35.9); MEAN CELL VOLUME 97.9 fl (80-96); MEAN PLT VOLUME 7.5 fl (7.5-11.1); PLATELET COUNT 123 K/MM3 (134-434); RBC 4.27 M/mm3 (4.00-5.60); RDW 13.9 % (11.9-15.9); WHITE BLOOD COUNT 6.5 K/mm3 (4.0-10.0)
[2017-05-17 19:53] LABS: INR 1.22 (0.82-1.09); PROTHROMBIN TIME (PATIENT) 13.8 SEC (9.98-11.88)
[2017-05-17] MEDS: THIAMINE HCL 100 MG TABLET (FP) PO SCH (21:15)
[2017-05-18] MEDS: oxyCODONE HCL 5 MG TABLET PO PRN ×4 (03:05→21:38)
[2017-05-18] MEDS: CYCLOBENZAPRINE HCL 10 MG TABLET (FP) PO SCH ×3 (06:20→21:32)
[2017-05-18] MEDS: GABAPENTIN 300 MG CAPSULE (FP) PO SCH ×3 (06:20→21:32)
[2017-05-18 07:59] LABS: BASO % 0.6 % (0-2.0); EOS % 4.8 % (0-4.5); HEMATOCRIT 38.4 % (35.4-49); HEMOGLOBIN 12.7 GM/dL (11.7-16.9); LYMPH % 28.4 % (8-40); MCH 32.6 pg (25.7-33.7); MCHC 33.1 g/dl (32.0-35.9); MEAN CELL VOLUME 98.5 fl (80-96); MEAN PLT VOLUME 7.1 fl (7.5-11.1); MONO % 15.8 % (3.8-10.2); NEUT % 50.4 % (42.8-82.8); RDW 13.8 % (11.9-15.9); WHITE BLOOD COUNT 5.2 K/mm3 (4.0-10.0)
[2017-05-18] MEDS: TAMSULOSIN HCL 0.4 MG CAP.ER.24H (FP) PO SCH (08:00)
[2017-05-18 08:13] LABS: ANION GAP 4 (8-16); BLOOD UREA NITROGEN 13 mg/dL (7-18); CALCIUM 7.7 mg/dL (8.5-10.1); CHLORIDE 100 mmol/L (98-107); CO2 32 mmol/L (21-32); GLUCOSE,RANDOM 105 mg/dL (74-106); MAGNESIUM 1.6 mg/dL (1.8-2.4); SODIUM 136 mmol/L (136-145)
[2017-05-18 08:17] LABS: ALK PHOS 160 U/L (45-117); BILIRUBIN,TOTAL 3.1 mg/dL (0.2-1.0); CREATININE 0.6 mg/dL (0.7-1.3); SGOT/AST 58 U/L (15-37); SGPT/ALT 49 U/L (12-78); TOT PROT 6.7 g/dl (6.4-8.2)
[2017-05-18 09:00] LABS: PLATELET COUNT 94 K/MM3 (134-434)
[2017-05-18] MEDS: ENOXAPARIN NA (PORCINE) 40 MG/0.4 ML DISP.SYRIN SQ SCH (09:06)
[2017-05-18] MEDS: FAMOTIDINE 20 MG/50 ML IVPB 20 MG/50 ML MG IVPB SCH ×2 (09:06→21:31)
[2017-05-18] MEDS: SPIRONOLACTONE 25 MG TABLET (FP) PO SCH (09:07)
[2017-05-18] MEDS: FOLIC ACID 1 MG TABLET (FP) PO SCH (09:07)
[2017-05-18] MEDS: LACTOBACILLUS ACIDOPHILUS 1 EACH TAB (FP) PO SCH (09:07)
[2017-05-18] MEDS: levETIRAcetam 500 MG TABLET (FP) PO SCH ×2 (09:07→21:32)
[2017-05-18] MEDS: POLYETHYLENE GLYCOL 3350 119 GM BTL PO SCH (09:13)
[2017-05-18] MEDS ORDERED: MAGNESIUM SULF 50% (8.12 MEQ/2 ML-1 GM VIAL) IVPB ONE (12:30)
[2017-05-18 14:02] LABS: HEMOGLOBIN 12.6 GM/dL (11.7-16.9); MCH 32.7 pg (25.7-33.7); MCHC 33.3 g/dl (32.0-35.9); MEAN CELL VOLUME 98.4 fl (80-96); PLATELET COUNT 101 K/MM3 (134-434); RBC 3.86 M/mm3 (4.00-5.60); RDW 13.5 % (11.9-15.9); WHITE BLOOD COUNT 6.2 K/mm3 (4.0-10.0)
[2017-05-18 14:23] LABS: INR 1.29 (0.82-1.09); PROTHROMBIN TIME (PATIENT) 14.6 SEC (9.98-11.88)
--- NOTE | 2017-05-18 17:39 | PN ---
Physical Exam: SUBJECTIVE: Patient seen and examined. He is hungry and wants real food. Complains of dizziness OBJECTIVE: Vital Signs Period Temp Pulse Resp BP Sys/Sarmiento Pulse Ox Last 24 Hr 97.6 F-98.7 F 72-85 20-20 125-147/75-88 98-98 PE Neuro: alert, awake, cn 2-12 intact Pulm: CTAB CV: s1 s2 rrr no mrg Abd: s nt nd + bs Ext: Warm no le edema Laboratory Results - last 24 hr 05/17/17 05/17/17 05/18/17 18:25 18:25 07:05 WBC 6.5 5.2 RBC 4.27 3.90 L Hgb 14.1 12.7 Hct 41.8 38.4 MCV 97.9 H 98.5 H MCH 33.0 32.6 MCHC 33.7 33.1 RDW 13.9 13.8 Plt Count 123 L 94 L D MPV 7.5 7.1 L Neutrophils % 50.4 Lymphocytes % 28.4 Monocytes % 15.8 H Eosinophils % 4.8 H D Basophils % 0.6 PT with INR 13.80 H INR 1.22 H Sodium Potassium Chloride Carbon Dioxide Anion Gap BUN Creatinine Creat Clearance w eGFR Random Glucose Calcium Magnesium Total Bilirubin Direct Bilirubin AST ALT Alkaline Phosphatase Total Protein Albumin 05/18/17 05/18/17 05/18/17 07:05 13:50 13:50 WBC 6.2 RBC 3.86 L Hgb 12.6 Hct 38.0 MCV 98.4 H MCH 32.7 MCHC 33.3 RDW 13.5 Plt Count 101 L MPV 7.0 L Neutrophils % Lymphocytes % Monocytes % Eosinophils % Basophils % PT with INR 14.60 H INR 1.29 H Sodium 136 Potassium 4.0 Chloride 100 Carbon Dioxide 32 Anion Gap 4 L BUN 13 Creatinine 0.6 L Creat Clearance w eGFR > 60 Random Glucose 105 Calcium 7.7 L Magnesium 1.6 L Total Bilirubin 3.1 H D Direct Bilirubin AST 58 H D ALT 49 Alkaline Phosphatase 160 H Total Protein 6.7 Albumin 3.0 L 05/18/17 13:50 WBC RBC Hgb Hct MCV MCH MCHC RDW Plt Count MPV Neutrophils % Lymphocytes % Monocytes % Eosinophils % Basophils % PT with INR INR Sodium Potassium Chloride Carbon Dioxide Anion Gap BUN Creatinine Creat Clearance w eGFR Random Glucose Calcium Magnesium Total Bilirubin Direct Bilirubin 0.7 H AST ALT Alkaline Phosphatase Total Protein Albumin Active Medications Generic Name Dose Route Start Last Admin Trade Name Freq PRN Reason Stop Dose Admin Artificial Tears 1 drop 05/17/17 03:29 Artificial Tears OU Q6H PRN DRY EYES Cyclobenzaprine HCl 10 mg 05/17/17 06:00 05/18/17 13:53 Flexeril - PO 10 mg TID LALITHA Administration Enoxaparin Sodium 40 mg 05/18/17 10:00 05/18/17 09:06 Lovenox - SQ 40 mg DAILY LALITHA Administration Folic Acid 1 mg 05/17/17 10:00 05/18/17 09:07 Folic Acid - PO 1 mg DAILY LALITHA Administration Gabapentin 600 mg 05/17/17 06:00 05/18/17 13:53 Neurontin - PO 600 mg TID LALITHA Administration Famotidine/Sodium Chloride 20 mg in 50 mls @ 100 mls/hr 05/17/17 10:00 09:06 Pepcid 20 Mg Premixed Ivpb - IVPB 100 mls/hr BID LALITHA Administration Lactobacillus Acidophilus 1 tab 05/17/17 10:00 05/18/17 09:07 Bacid - PO 1 tab DAILY ALLITHA Administration Levetiracetam 500 mg 05/17/17 10:00 05/18/17 09:07 Keppra - PO 500 mg BID LALITHA Administration Oxycodone HCl 20 mg 05/17/17 02:30 05/18/17 15:17 Roxicodone - PO 20 mg Q6H PRN Administration PAIN LEVEL 6-10 Polyethylene Glycol 17 gm 05/17/17 10:00 05/18/17 09:13 Miralax (For Daily Use) - PO 17 grams DAILY LALITHA Administration Spironolactone 25 mg 05/17/17 10:00 05/18/17 09:07 Aldactone - PO 25 mg DAILY LALITHA Administration Tamsulosin HCl 0.4 mg 05/17/17 08:30 05/18/17 08:00 Flomax - PO 0.4 mg DAILY@0830 LALITHA Administration Thiamine HCl 100 mg 05/17/17 22:00 05/17/17 21:15 Vitamin B1 - PO 100 mg HS LALITHA Administration Assessment: 47 year old male with PMH ETOH, cirrhosis, fatty liver, seizure d/t (true vs pseudoseizures vs ETOH withdrawal), sleep apnea, chronic LBP/ herniation L2-S1 and C3-C4 presented to the ED with multiple complaints including chest pain, abdominal pain, N/V. Plan: 1. Cholelithiasis in setting of elevated bili and LFTs - MRCP done, report not read, awaiting final read - Can follow up with Dr. Méndez this week in office - LFt's down trending 2. Hypomagnesia/hypkalemia - Replete mg 2gm x1 today 3. Viral gastroenteritis - Resolved, tolerating regular diet 4. Cirrhosis/fatty liver - Has detoxed in the past, states he is not an alcoholic - Continue spironolactone - Hold lasix 5. Dry eyes - Artificial tears 6. Chronic LBP d/t traumatic injury - Continue home pain regimen - Continue flexeril and neurontin 7. Seizure disorder - Continue keppra 8. BPH - Cont Flomax 9. ETOH abuse - No signs of withdrawal at this time - Cont folic acid and thiamine 10. DVT PPX - OOB ambulation, lovenox sq Dispo: - pending abdominal mri read Visit type - Emergency Visit Emergency Visit: Yes ED Registration Date: 05/17/17 Care time: The patient presented to the Emergency Department on the above date and was hospitalized for further evaluation of their emergent condition. - New Patient This patient is new to me today: Yes Date on this admission: 05/18/17 - Critical Care Critical Care patient: No - Discharge Referral Referred to [facility] No
[2017-05-18] MEDS ORDERED: PT OWN MED DRAWER 7, Y5N ONE (21:28)
[2017-05-18] MEDS: THIAMINE HCL 100 MG TABLET (FP) PO SCH (21:32)
[2017-05-19] MEDS: oxyCODONE HCL 5 MG TABLET PO PRN ×4 (04:50→23:51)
[2017-05-19] MEDS: CYCLOBENZAPRINE HCL 10 MG TABLET (FP) PO SCH ×3 (05:56→21:17)
[2017-05-19] MEDS: GABAPENTIN 300 MG CAPSULE (FP) PO SCH ×3 (05:56→21:17)
[2017-05-19 07:55] LABS: ANION GAP 8 (8-16); BLOOD UREA NITROGEN 12 mg/dL (7-18); CALCIUM 8.7 mg/dL (8.5-10.1); CHLORIDE 97 mmol/L (98-107); CO2 30 mmol/L (21-32); CREATININE 0.5 mg/dL (0.7-1.3); GLUCOSE,RANDOM 93 mg/dL (74-106); MAGNESIUM 1.9 mg/dL (1.8-2.4); POTASSIUM 3.9 mmol/L (3.5-5.1); SODIUM 135 mmol/L (136-145)
[2017-05-19] MEDS: TAMSULOSIN HCL 0.4 MG CAP.ER.24H (FP) PO SCH (08:30)
[2017-05-19] MEDS: ENOXAPARIN NA (PORCINE) 40 MG/0.4 ML DISP.SYRIN SQ SCH (10:05)
[2017-05-19] MEDS: FAMOTIDINE 20 MG/50 ML IVPB 20 MG/50 ML MG IVPB SCH ×2 (10:05→21:17)
[2017-05-19] MEDS: POLYETHYLENE GLYCOL 3350 119 GM BTL PO SCH (10:06)
[2017-05-19] MEDS: levETIRAcetam 500 MG TABLET (FP) PO SCH ×2 (10:07→21:17)
[2017-05-19] MEDS: LACTOBACILLUS ACIDOPHILUS 1 EACH TAB (FP) PO SCH (10:07)
[2017-05-19] MEDS: SPIRONOLACTONE 25 MG TABLET (FP) PO SCH (10:07)
[2017-05-19] MEDS: FOLIC ACID 1 MG TABLET (FP) PO SCH (10:07)
--- NOTE | 2017-05-19 11:24 | PN ---
Progress Note, Physician Chief Complaint: pt asleep in bed, arousable upon verbal command. reports he is feeling okay, has leg pain. states he tolerated regular diet, however mild nausea afterwards. denies chest pain, sob, n/v/d - Current Medication List Current Medications: Active Medications Artificial Tears (Artificial Tears) 1 drop OU Q6H PRN PRN Reason: DRY EYES Cyclobenzaprine HCl (Flexeril -) 10 mg PO TID [facility] Last Admin: 05/19/17 05:56 Dose: 10 mg Enoxaparin Sodium (Lovenox -) 40 mg SQ DAILY [facility] Last Admin: 05/19/17 10:05 Dose: 40 mg Folic Acid (Folic Acid -) 1 mg PO DAILY [facility] Last Admin: 05/19/17 10:07 Dose: 1 mg Gabapentin (Neurontin -) 600 mg PO TID [facility] Last Admin: 05/19/17 05:56 Dose: 600 mg Famotidine/Sodium Chloride (Pepcid 20 Mg Premixed Ivpb -) 20 mg in 50 mls @ 100 mls/hr IVPB BID [facility] Last Admin: 05/19/17 10:05 Dose: 100 mls/hr Lactobacillus Acidophilus (Bacid -) 1 tab PO DAILY [facility] Last Admin: 05/19/17 10:07 Dose: 1 tab Levetiracetam (Keppra -) 500 mg PO BID [facility] Last Admin: 05/19/17 10:07 Dose: 500 mg Oxycodone HCl (Roxicodone -) 20 mg PO Q6H PRN PRN Reason: PAIN LEVEL 6-10 Last Admin: 05/19/17 04:50 Dose: 20 mg Polyethylene Glycol (Miralax (For Daily Use) -) 17 gm PO DAILY [facility] Last Admin: 05/19/17 10:06 Dose: 17 grams Spironolactone (Aldactone -) 25 mg PO DAILY [facility] Last Admin: 05/19/17 10:07 Dose: 25 mg Tamsulosin HCl (Flomax -) 0.4 mg PO DAILY@0830 [facility] Last Admin: 05/19/17 08:30 Dose: 0.4 mg Thiamine HCl (Vitamin B1 -) 100 mg PO HS [facility] Last Admin: 05/18/17 21:32 Dose: 100 mg - Objective Vital Signs: Vital Signs Temperature 98.1 F 05/19/17 10:00 Pulse Rate 75 05/19/17 10:00 Respiratory Rate 16 05/19/17 10:00 Blood Pressure 111/70 05/19/17 10:00 O2 Sat by Pulse Oximetry (%) 98 05/18/17 22:00 Constitutional: Yes: Well Nourished, No Distress, Calm Cardiovascular: Yes: WNL, Regular Rate and Rhythm. No: Gallop, Murmur, Rub Respiratory: Yes: WNL, Regular, CTA Bilaterally. No: Rales, Rhonchi, SOB, Tachypnea, Wheezes Gastrointestinal: Yes: WNL, Normal Bowel Sounds, Soft, Abdomen, Obese. No: Ascites, Distention, Tenderness Musculoskeletal: Yes: WNL Extremities: Yes: WNL Edema: Yes Edema: LLE: Trace, RLE: Trace Neurological: Yes: WNL, Alert, Oriented Psychiatric: Yes: WNL, Alert, Oriented Labs: CBC, BMP 05/18/17 13:50 05/19/17 06:35 INR, PTT INR 1.29 (0.82-1.09) H 05/18/17 13:50 - ....Imaging Ultrasound: Report Reviewed Problem List - Problems (1) Cholelithiasis Assessment/Plan: MRCP with no indication of cholestasis/lithiasis lfts/billirubin trending down low fat diet, pt tolerating discussed with GI, no further work up needed pt to follow up with GI in 2 weeks Code(s): K80.20 - CALCULUS OF GALLBLADDER W/O CHOLECYSTITIS W/O OBSTRUCTION Qualifiers: Cholelithiasis location: gallbladder Cholecystitis acuity: acute and chronic Biliary obstruction: without biliary obstruction (2) Total bilirubin, elevated Assessment/Plan: secondary to cholelithiasis/cirrhosis, trending down monitor am labs Code(s): R17 - UNSPECIFIED JAUNDICE (3) Hypertension Assessment/Plan: stable continue spiranolactone Code(s): I10 - ESSENTIAL (PRIMARY) HYPERTENSION Qualifiers: Hypertension type: essential hypertension Qualified Code(s): I10 - Essential (primary) hypertension (4) Neuropathy Assessment/Plan: chronic, stable continue gabapentin/flexeril Code(s): G62.9 - POLYNEUROPATHY, UNSPECIFIED (5) low back pain herniated disc Assessment/Plan: chronic, stable continue home meds (6) Cirrhosis Assessment/Plan: chronic, secondary to alcohol abuse Code(s): K74.60 - UNSPECIFIED CIRRHOSIS OF LIVER Qualifiers: Hepatic cirrhosis type: alcoholic cirrhosis Ascites presence: without ascites Qualified Code(s): K70.30 - Alcoholic cirrhosis of liver without ascites (7) Fatty liver Assessment/Plan: chronic will monitor for changes Code(s): K76.0 - FATTY (CHANGE OF) LIVER, NOT ELSEWHERE CLASSIFIED (8) Alcoholism Assessment/Plan: detoxed multiple times prior no s&s of acute withdrawal continue folic acid/thiamine will monitor Code(s): F10.20 - ALCOHOL DEPENDENCE, UNCOMPLICATED (9) BPH (benign prostatic hyperplasia) Assessment/Plan: stable continue flomax Code(s): N40.0 - BENIGN PROSTATIC HYPERPLASIA WITHOUT LOWER URINRY TRACT SYMP Qualifiers: Lower urinary tract symptom presence: unspecified whether lower urinary tract symptoms present Qualified Code(s): N40.0 - Benign prostatic hyperplasia without lower urinary tract symptoms (10) History of seizure Assessment/Plan: stable continue keppra Code(s): Z87.898 - PERSONAL HISTORY OF OTHER SPECIFIED CONDITIONS (11) Bilateral lower extremity edema Assessment/Plan: chronic, secondary to possible venous insufficiency, stable continue lasix 40mg daily Code(s): R60.0 - LOCALIZED EDEMA Assessment/Plan Dispo home tomorrow
[2017-05-19] MEDS ORDERED: MAGNESIUM OXIDE 400 MG TABLET (FP) PO ONE (12:30)
[2017-05-19] MEDS: POTASSIUM CHLORIDE TABS 20 MEQ TABLET.ER (FP) PO SCH (13:11)
[2017-05-19 15:01] LABS: BILIRUBIN,DIRECT 0.5 mg/dL (0.0-0.2)
[2017-05-19] MEDS: ARTIFICIAL TEARS (POLYVINYL ALCOHOL 1.4%) OPTH DROPS OU PRN (16:32)
[2017-05-19 16:40] LABS: HEMATOCRIT 37.9 % (35.4-49); HEMOGLOBIN 12.7 GM/dL (11.7-16.9); MCH 33.3 pg (25.7-33.7); MCHC 33.4 g/dl (32.0-35.9); MEAN CELL VOLUME 99.7 fl (80-96); MEAN PLT VOLUME 8.4 fl (7.5-11.1); PLATELET COUNT 96 K/MM3 (134-434); RDW 13.8 % (11.9-15.9); WHITE BLOOD COUNT 5.4 K/mm3 (4.0-10.0)
[2017-05-19 16:58] LABS: INR 1.22 (0.82-1.09); PROTHROMBIN TIME (PATIENT) 13.8 SEC (9.98-11.88)
[2017-05-19] MEDS: THIAMINE HCL 100 MG TABLET (FP) PO SCH (21:17)
[2017-05-20] MEDS: oxyCODONE HCL 5 MG TABLET PO PRN ×2 (05:45→11:56)
[2017-05-20] MEDS: CYCLOBENZAPRINE HCL 10 MG TABLET (FP) PO SCH ×2 (05:46→15:03)
[2017-05-20] MEDS: GABAPENTIN 300 MG CAPSULE (FP) PO SCH ×2 (05:46→15:03)
[2017-05-20 06:23] VITALS: TEMP 97.9
[2017-05-20 07:48] LABS: ANION GAP 5 (8-16); BLOOD UREA NITROGEN 9 mg/dL (7-18); CALCIUM 8.8 mg/dL (8.5-10.1); CHLORIDE 96 mmol/L (98-107); CO2 34 mmol/L (21-32); CREATININE 0.6 mg/dL (0.7-1.3); GLUCOSE,RANDOM 84 mg/dL (74-106); POTASSIUM 4.4 mmol/L (3.5-5.1); SODIUM 135 mmol/L (136-145)
--- NOTE | 2017-05-20 09:32 | PN ---
Progress Note, Physician History of Present Illness: Chart reviewed. No events. - Current Medication List Current Medications: Active Medications Artificial Tears (Artificial Tears) 1 drop OU Q6H PRN PRN Reason: DRY EYES Last Admin: 05/19/17 16:32 Dose: 1 drop Cyclobenzaprine HCl (Flexeril -) 10 mg PO TID [facility] Last Admin: 05/20/17 05:46 Dose: 10 mg Enoxaparin Sodium (Lovenox -) 40 mg SQ DAILY [facility] Last Admin: 05/19/17 10:05 Dose: 40 mg Folic Acid (Folic Acid -) 1 mg PO DAILY [facility] Last Admin: 05/19/17 10:07 Dose: 1 mg Furosemide (Lasix -) 40 mg PO DAILY [facility] Gabapentin (Neurontin -) 600 mg PO TID [facility] Last Admin: 05/20/17 05:46 Dose: 600 mg Famotidine/Sodium Chloride (Pepcid 20 Mg Premixed Ivpb -) 20 mg in 50 mls @ 100 mls/hr IVPB BID [facility] Last Admin: 05/19/17 21:17 Dose: 100 mls/hr Lactobacillus Acidophilus (Bacid -) 1 tab PO DAILY [facility] Last Admin: 05/19/17 10:07 Dose: 1 tab Levetiracetam (Keppra -) 500 mg PO BID [facility] Last Admin: 05/19/17 21:17 Dose: 500 mg Oxycodone HCl (Roxicodone -) 20 mg PO Q6H PRN PRN Reason: PAIN LEVEL 6-10 Last Admin: 05/20/17 05:45 Dose: 20 mg Polyethylene Glycol (Miralax (For Daily Use) -) 17 gm PO DAILY [facility] Last Admin: 05/19/17 10:06 Dose: 17 grams Potassium Chloride (K-Dur -) 20 meq PO DAILY [facility] Last Admin: 05/19/17 13:11 Dose: 20 meq Spironolactone (Aldactone -) 25 mg PO DAILY [facility] Last Admin: 05/19/17 10:07 Dose: 25 mg Tamsulosin HCl (Flomax -) 0.4 mg PO DAILY@0830 [facility] Last Admin: 05/19/17 08:30 Dose: 0.4 mg Thiamine HCl (Vitamin B1 -) 100 mg PO HS [facility] Last Admin: 05/19/17 21:17 Dose: 100 mg - Objective Vital Signs: Vital Signs Temperature 97.9 F 02/06/18 06:21 Pulse Rate 66 05/20/17 06:21 Respiratory Rate 20 05/20/17 06:21 Blood Pressure 124/78 05/20/17 06:21 O2 Sat by Pulse Oximetry (%) 98 05/19/17 22:00 Constitutional: Yes: Well Nourished, No Distress, Calm Eyes: Yes: Conjunctiva Clear HENT: Yes: Atraumatic Neck: Yes: Supple Cardiovascular: Yes: Regular Rate and Rhythm Respiratory: Yes: Regular Gastrointestinal: Yes: Soft Neurological: Yes: Alert, Oriented Labs: CBC, BMP 05/19/17 15:00 05/20/17 06:50 INR, PTT INR 1.22 (0.82-1.09) H 05/19/17 15:00 CBCD WBC 5.4 K/mm3 (4.0-10.0) 05/19/17 15:00 RBC 3.80 M/mm3 (4.00-5.60) L 05/19/17 15:00 Hgb 12.7 GM/dL (11.7-16.9) 05/19/17 15:00 Hct 37.9 % (35.4-49) 05/19/17 15:00 MCV 99.7 fl (80-96) H 05/19/17 15:00 MCHC 33.4 g/dl (32.0-35.9) 05/19/17 15:00 RDW 13.8 % (11.9-15.9) 05/19/17 15:00 Plt Count 96 K/MM3 (134-434) L 05/19/17 15:00 MPV 8.4 fl (7.5-11.1) D 05/19/17 15:00 CMP Sodium 135 mmol/L (136-145) L 05/20/17 06:50 Potassium 4.4 mmol/L (3.5-5.1) 05/20/17 06:50 Chloride 96 mmol/L (98-107) L 05/20/17 06:50 Carbon Dioxide 34 mmol/L (21-32) H 05/20/17 06:50 Anion Gap 5 (8-16) L 05/20/17 06:50 BUN 9 mg/dL (7-18) D 05/20/17 06:50 Creatinine 0.6 mg/dL (0.7-1.3) L 05/20/17 06:50 Creat Clearance w eGFR > 60 (>60) 05/18/17 07:05 Calcium 8.8 mg/dL (8.5-10.1) 05/20/17 06:50 Total Bilirubin 3.1 mg/dL (0.2-1.0) H D 05/18/17 07:05 AST 58 U/L (15-37) H D 05/18/17 07:05 ALT 49 U/L (12-78) 05/18/17 07:05 Alkaline Phosphatase 160 U/L (45-117) H 05/18/17 07:05 Total Protein 6.7 g/dl (6.4-8.2) 05/18/17 07:05 Albumin 3.0 g/dl (3.4-5.0) L 05/18/17 07:05 Problem List - Problems (1) Cholelithiasis Code(s): K80.20 - CALCULUS OF GALLBLADDER W/O CHOLECYSTITIS W/O OBSTRUCTION Qualifiers: Cholelithiasis location: gallbladder Cholecystitis acuity: acute and chronic Biliary obstruction: without biliary obstruction (2) Total bilirubin, elevated Code(s): R17 - UNSPECIFIED JAUNDICE (3) Cirrhosis Code(s): K74.60 - UNSPECIFIED CIRRHOSIS OF LIVER Qualifiers: Hepatic cirrhosis type: alcoholic cirrhosis Ascites presence: without ascites Qualified Code(s): K70.30 - Alcoholic cirrhosis of liver without ascites (4) Fatty liver Code(s): K76.0 - FATTY (CHANGE OF) LIVER, NOT ELSEWHERE CLASSIFIED (5) History of cirrhosis of liver Code(s): Z87.19 - PERSONAL HISTORY OF OTHER DISEASES OF THE DIGESTIVE SYSTEM (6) Alcohol dependence with uncomplicated withdrawal Code(s): F10.230 - ALCOHOL DEPENDENCE WITH WITHDRAWAL, UNCOMPLICATED Assessment/Plan Asymptomatic Tolerating diet OK to follow with GI up as OP in 1-2 weeks
--- NOTE | 2017-05-20 09:57 | DS ---
Physical Examination Vital Signs: Vital Signs Temperature 97.9 F 05/20/17 06:21 Pulse Rate 66 05/20/17 06:21 Respiratory Rate 20 05/20/17 06:21 Blood Pressure 124/78 05/20/17 06:21 O2 Sat by Pulse Oximetry (%) 98 05/19/17 22:00 Findings/Remarks: Pt lying in bed in no acute distress. Tolerating regular diet. Denies sob/chest pain, n/v/d or weakness. Constitutional: Yes: Well Nourished, No Distress, Calm Cardiovascular: Yes: WNL, Regular Rate and Rhythm, S1, S2. No: Bruit, Gallop, Murmur, Rub Respiratory: Yes: WNL, Regular, CTA Bilaterally. No: Rales, Rhonchi, SOB, Tachypnea, Wheezes Gastrointestinal: Yes: WNL, Normal Bowel Sounds, Soft, Abdomen, Obese. No: Distention, Tenderness Musculoskeletal: Yes: WNL Extremities: Yes: WNL Edema: No Integumentary: Yes: Tattoos Neurological: Yes: WNL, Alert, Oriented Psychiatric: Yes: WNL, Alert, Oriented Labs: CBC, BMP 05/19/17 15:00 05/20/17 06:50 Discharge Summary Reason For Visit: HIGH TOTAL BILIRUBIN,CHOLELITHLIASIS Current Active Problems Cholelithiasis (Acute) Hematuria (Acute) History of seizure (Acute) Total bilirubin, elevated (Acute) Hospital Course: is a 47 year old male with pmh of ETOH abuse(detoxed multiple times), cirrhosis, fatty liver, seizure, sleep apnea, chronic LBP/herniation L2- S1 and C3-C4 who came in with N/V/D and weakness, was admitted under observation for hyperbillirubinemia and elevated lfts. GI was consulted concerning for cholelithiasis. MRCP did not reveal cholecystitis/lithiasis. Pt was started on low fat diet which he tolerated. Scott and lfts trended down during his stay.His stay was unremarkable otherwise. Pt advised to f/u with GI in 2 weeks and PCP in 1 week. Pt advised to avoid excessive alcohol intake as it can cause further organ damage and lead to deterioration. Condition: Good - Instructions Referrals: Vineet Méndez MD [Staff Physician] - 2 Weeks Neil Rush MD [Primary Care Provider] - 1 Week Disposition: HOME - Home Medications Comprehensive Discharge Medication List: Ambulatory Orders Gabapentin [Neurontin -] 600 mg PO TID 05/30/16 Furosemide [Lasix] 40 mg PO DAILY #3 tablet 06/23/16 Cyclobenzaprine HCl [Flexeril -] 10 mg PO TID 03/25/17 Levetiracetam [Keppra -] 500 mg PO BID 03/25/17 Folic Acid - 1 mg PO DAILY #30 tablet 03/27/17 Lactobacillus Acidophilus [Probiotic] 1 each PO DAILY #10 capsule 03/27/17 Tamsulosin HCl [Flomax -] 0.4 mg PO DAILY@0830 #30 cap.er.24h 03/27/17 Thiamine HCl [Vitamin B1 -] 100 mg PO HS #30 tablet 03/27/17 Polyethylene Glycol 3350 [Miralax 119 gm Btl -] 17 gm PO DAILY bottle 04/05/17 Spironolactone [Aldactone -] 25 mg PO DAILY #30 tablet 04/05/17 Oxycodone HCl 20 mg PO QID PRN 05/18/17
[2017-05-20] MEDS: ENOXAPARIN NA (PORCINE) 40 MG/0.4 ML DISP.SYRIN SQ SCH (10:00)
[2017-05-20] MEDS: FAMOTIDINE 20 MG/50 ML IVPB 20 MG/50 ML MG IVPB SCH (10:00)
[2017-05-20] MEDS ORDERED: FUROSEMIDE 40 MG TABLET (FP) PO SCH (10:00)
[2017-05-20] MEDS: FOLIC ACID 1 MG TABLET (FP) PO SCH (10:01)
[2017-05-20] MEDS: POLYETHYLENE GLYCOL 3350 119 GM BTL PO SCH (10:01)
[2017-05-20] MEDS: LACTOBACILLUS ACIDOPHILUS 1 EACH TAB (FP) PO SCH (10:01)
[2017-05-20] MEDS: levETIRAcetam 500 MG TABLET (FP) PO SCH (10:01)
[2017-05-20] MEDS: TAMSULOSIN HCL 0.4 MG CAP.ER.24H (FP) PO SCH (10:01)
[2017-05-20] MEDS: SPIRONOLACTONE 25 MG TABLET (FP) PO SCH (10:01)
[2017-05-20] MEDS: POTASSIUM CHLORIDE TABS 20 MEQ TABLET.ER (FP) PO SCH (10:01)
[2017-05-20] MEDS: ARTIFICIAL TEARS (POLYVINYL ALCOHOL 1.4%) OPTH DROPS OU PRN (10:02)
[2017-05-20 10:11] VITALS: BP 113/74; PULSE 63
[2017-05-20 13:50] LABS: HEMATOCRIT 40.7 % (35.4-49); HEMOGLOBIN 13.5 GM/dL (11.7-16.9); MCH 32.3 pg (25.7-33.7); MCHC 33.2 g/dl (32.0-35.9); MEAN CELL VOLUME 97.5 fl (80-96); MEAN PLT VOLUME 8.3 fl (7.5-11.1); PLATELET COUNT 89 K/MM3 (134-434); RBC 4.18 M/mm3 (4.00-5.60); RDW 13.7 % (11.9-15.9); WHITE BLOOD COUNT 5.9 K/mm3 (4.0-10.0)
[2017-05-20 14:06] LABS: INR 1.27 (0.82-1.09); PROTHROMBIN TIME (PATIENT) 14.3 SEC (9.98-11.88)
== END 2017-05-20 17:04 | disposition home or self-care (01) ==
LOC: JERFT 14:19 → JERBED 05-17 01:20 → J6S 05-17 04:19
PROVIDERS: ADMIT Internal Medicine; ATTEND Internal Medicine
PROC: 3E033GC Introduction of Other Therapeutic Substance into Peripheral Vein, Percutaneous Approach (ICD-10-PCS; principal; 2017-05-17)
PROC: 3E013GC Introduction of Other Therapeutic Substance into Subcutaneous Tissue, Percutaneous Approach (ICD-10-PCS; 2017-05-17)
DX: E80.7 Disorder of bilirubin metabolism, unspecified (principal); K80.20 Calculus of gallbladder without cholecystitis without obstruction; R31.9 Hematuria, unspecified; E83.42 Hypomagnesemia; I10 Essential (primary) hypertension; G40.909 Epilepsy, unspecified, not intractable, without status epilepticus; G47.30 Sleep apnea, unspecified; F10.20 Alcohol dependence, uncomplicated; M54.5 Low back pain; G89.29 Other chronic pain; N40.0 Benign prostatic hyperplasia without lower urinary tract symptoms; K76.0 Fatty (change of) liver, not elsewhere classified; F41.9 Anxiety disorder, unspecified; G62.9 Polyneuropathy, unspecified; H04.129 Dry eye syndrome of unspecified lacrimal gland; A08.4 Viral intestinal infection, unspecified; K70.30 Alcoholic cirrhosis of liver without ascites; E78.5 Hyperlipidemia, unspecified
CPT/HCPCS: 36415; 74018-TC-FY; 74183-TC; 76705-TC; 80048; 80053; 81003; 81015; 82248; 83690; 83735; 84100; 85025; 85027; 85610; 87389; 87804; 93005; 93010; 96365; 96372; 96375; 96376; 99285-25; G0378

== ENCOUNTER 2017-05-30 15:52 | Inpatient (IN) | payer OTHER ==
[2017-05-30 18:54] VITALS: BMI 34.8
--- NOTE | 2017-05-30 21:20 | HP ---
CIWA Score - CIWA Score Nausea/Vomitin Muscle Tremors: 2 Anxiety: 3 Agitation: 3 Paroxysmal Sweats: 3 Orientation: 1-Uncertain about Date Tacttile Disturbances: 2-Mild Itch/Numbness/Burn Auditory Disturbances: 0-None Visual Disturbances: 0-None Headache: 3-Moderate CIWA-Ar Total Score: 19 Admission ROS BHS - HPI Chief Complaint: WITHDRAWAL SYMPTOMS Allergies/Adverse Reactions: Allergies Allergy/AdvReac Type Severity Reaction Status Date / Time No Known Allergies Allergy Verified 04/23/17 05:14 History of Present Illness: 47 Y.O. MAN WITH AN EXTENSIVE HISTORY OF ALCOHOL DEPENDENCE IS HERE FOR DETOX. HE HAS HAD MULTIPLE ADMISSIONS HERE AND DOES NOT HAVE A SIGNIFICANT PERIOD OF SOBRIETY. Exam Limitations: Intoxication - Ebola screening Have you traveled outside of the country in the last 21 days: No Have you had contact with anyone from an Ebola affected area: No Have you been sick,other than usual withdrawal symptoms: No Do you have a fever: No - Review of Systems Constitutional: Chills, Diaphoresis, Night Sweats, Changes in sleep EENT: reports: Blurred Vision, Tearing, Nose Congestion Respiratory: reports: No Symptoms reported Cardiac: reports: Palpitations GI: reports: Diarrhea : reports: No Symptoms Reported Musculoskeletal: reports: Back Pain, Neck Pain Integumentary: reports: No Symptoms Reported Neuro: reports: Headache, Paresthesia, Tingling, Tremors Endocrine: reports: No Symptoms Reported Hematology: reports: No Symptoms Reported Psychiatric: reports: Judgement Intact, Mood/Affect Appropiate, Anxious Other Systems: Reviewed and Negative Patient History - Patient Medical History Hx Anemia: No Hx Asthma: No Hx Chronic Obstructive Pulmonary Disease (COPD): No Hx Cancer: No Hx Cardiac Disorders: No Hx Congestive Heart Failure: No Hx Hypertension: No Hx Hypercholesterolemia: No Hx Pacemaker: No HX Cerebrovascular Accident: No Hx Seizures: Yes (DOES NOT RECALL LAST SZ; PRESCRIBED KEPPRA BUT DOESN'T RECALL LAST USED) Hx Dementia: No Hx Diabetes: No Hx Gastrointestinal Disorders: No Hx Liver Disease: Yes (fatty liver, CIRRHOSIS) Hx Genitourinary Disorders: Yes (BPH) Hx Sexually Transmitted Disorders: No Hx Renal Disease (ESRD): No Hx Thyroid Disease: No Hx Human Immunodeficiency Virus (HIV): No Hx Hepatitis C: No Hx Depression: Yes (DENIES SI/HI) Hx Suicide Attempt: No Hx Bipolar Disorder: Yes Hx Schizophrenia: No - Patient Surgical History Past Surgical History: Yes Hx Neurologic Surgery: No Hx Cataract Extraction: No Hx Cardiac Surgery: No Hx Lung Surgery: No Hx Breast Surgery: No Hx Breast Biopsy: No Hx Abdominal Surgery: Yes (LAP BAND 2009/umbilical hernia repaired 2013) Hx Appendectomy: No Hx Cholecystectomy: No Hx Genitourinary Surgery: No Hx Section: No Hx Orthopedic Surgery: Yes (ARTHROSCOPY LEFT SHOULDER 2011) Anesthesia Reaction: No - PPD History Previous Implant?: Yes Documented Results: Negative w/proof Implanted On Prior [facility] Admission?: Yes Date: 06/01/16 Results: 0mm PPD to be Administered?: No - Reproductive History Patient is a Female of Child Bearing Age (11 -55 yrs old): No - Smoking Cessation Smoking history: Never smoked Have you smoked in the past 12 months: No Aproximately how many cigarettes per day: 0 Cigars Per Day: 0 Hx Chewing Tobacco Use: No - Substance & Tx. History Hx Alcohol Use: Yes Hx Substance Use: No Substance Use Type: Alcohol Hx Substance Use Treatment: Yes (DETOX: 03/2017) - Substances Abused Alcohol Route: Oral Frequency: Daily Amount used: 1 LITER OF LIQUOR; 2 6 PACK OF 12OZ BEER Age of first use: 10 Date of Last Use: 05/30/17 Family Disease History - Family Disease History Family Disease History: Other: Father (Alive: 65 alcoholic), Mother (Alive: 62: healthy), Brother (Alive: Healthy), Sister (Alive: Healthy), Son (Healthy), Daughter (Healthy) Admission Physical Exam S - Vital Signs Vital Signs: Vital Signs - 24 hr 05/30/17 18:52 Temperature 98.7 F Pulse Rate 113 H Respiratory 24 Rate Blood Pressure 163/116 - Physical General Appearance: Yes: Disheveled, Alcohol on Breath, Intoxicated, Tremorous, Irritable, Sweating, Anxious HEENTM: Yes: Hearing grossly Normal, Normal ENT Inspection, Normocephalic Respiratory: Yes: Chest Non-Tender, Lungs Clear, Normal Breath Sounds, No Respiratory Distress, No Accessory Muscle Use Neck: Yes: No masses,lesions,Nodules, Trachea in good position Breast: Yes: Breast Exam Deferred Cardiology: Yes: Regular Rhythm, Tachycardia Abdominal: Yes: Normal Bowel Sounds, Non Tender Genitourinary: Yes: Dribblimg Back: Yes: Normal Inspection Musculoskeletal: Yes: Back pain Extremities: Yes: Tremors Neurological: Yes: Alert Integumentary: Yes: Dry, Warm, Pitting Edema Lymphatic: Yes: Within Normal Limits - Diagnostic (1) Bilateral lower extremity edema Current Visit: Yes Status: Chronic (2) History of seizure Current Visit: Yes Status: Chronic (3) Alcohol dependence with uncomplicated withdrawal Current Visit: Yes Status: Chronic (4) Alcohol withdrawal seizure Current Visit: Yes Status: Chronic Qualifiers: Complication of substance-induced condition: uncomplicated Qualified Code(s ): F10.230 - Alcohol dependence with withdrawal, uncomplicated (5) BPH (benign prostatic hyperplasia) Current Visit: Yes Status: Chronic Qualifiers: Lower urinary tract symptom presence: unspecified whether lower urinary tract symptoms present Qualified Code(s): N40.0 - Benign prostatic hyperplasia without lower urinary tract symptoms (6) Neuropathy Current Visit: Yes Status: Chronic Comment: isabella torres (7) low back pain herniated disc Current Visit: Yes Status: Chronic (8) Obesity Current Visit: Yes Status: Chronic Cleared for Admission [facility] - Detox or Rehab [facility] Level of Care: Medically Managed Detox Regimen/Protocol: Librium [facility] Breath Alcohol Content Breath Alcohol Content: 0.346 Urine Drug Screen - Results Urine Drug Screen Results: BZO-Benzodiazepines, TCA-Tricyclic Antidepress, OXY- Oxycodone
[2017-05-30] MEDS ORDERED: MAGNESIUM HYDROX 2400MG/30ML ORAL SUSPENSION 30 ML CUP PO PRN (21:44)
[2017-05-30] MEDS ORDERED: MAGNESIUM CITRATE 300 ML BOTTLE PO PRN (21:44)
[2017-05-30] MEDS ORDERED: MENTHOL/PHENOL 1 EACH UD MM PRN (21:44)
[2017-05-30] MEDS ORDERED: chlordiazePOXIDE HCL 25 MG CAPSULE PO ONE (21:44)
[2017-05-30] MEDS ORDERED: P-EPHED 60MG/TRIPROLIDI 2.5MG TABLET PO PRN (21:44)
[2017-05-30] MEDS ORDERED: guaiFENesin/D-METHORPHAN HB 10 ML UNIT-DOSE CUPS PO PRN (21:44)
[2017-05-30] MEDS: chlordiazePOXIDE HCL 25 MG CAPSULE PO SCH (23:12)
[2017-05-30] MEDS: THIAMINE HCL 100 MG TABLET (FP) PO SCH (23:13)
[2017-05-31] MEDS: hydrOXYzine PAMOATE 50 MG CAPSULE (FP) PO PRN ×3 (00:31→14:42)
[2017-05-31] MEDS: chlordiazePOXIDE HCL 25 MG CAPSULE PO PRN (01:24)
[2017-05-31] MEDS: IBUPROFEN 400 MG TABLET (FP) PO PRN ×2 (02:14→12:54)
[2017-05-31] MEDS: chlordiazePOXIDE HCL 25 MG CAPSULE PO SCH ×4 (04:48→22:18)
[2017-05-31] MEDS: cloNIDine HCL 0.1 MG TABLET PO PRN (04:50)
[2017-05-31] MEDS: MAG HYDROX/AL HYDROX/SIMETH 30 ML UNIT-DOSE CUP PO PRN ×2 (04:55→16:14)
[2017-05-31] MEDS: LOPERAMIDE HCL 2 MG CAPSULE PO PRN ×2 (10:09→18:42)
[2017-05-31] MEDS: PRENATAL VITAMINS W/ FOLIC ACID TABLET (FP) PO SCH (10:09)
--- NOTE | 2017-05-31 12:20 | EKG ---
Test Reason : Blood Pressure : / mmHG Vent. Rate : 098 BPM Atrial Rate : 098 BPM P-R Int : 174 ms QRS Dur : 100 ms QT Int : 356 ms P-R-T Axes : 058 044 038 degrees QTc Int : 454 ms NORMAL SINUS RHYTHM NORMAL ECG WHEN COMPARED WITH ECG OF 16-MAY-2017 16:41, PREMATURE VENTRICULAR COMPLEXES ARE NO LONGER PRESENT Confirmed by JOHN KAHN MD ([id number]) on 05/31/2017 12:20:07 PM Referred By: Confirmed By:JOHN KAHN MD
[2017-05-31 12:26] LABS: HEMATOCRIT 40.9 % (35.4-49); HEMOGLOBIN 13.4 GM/dL (11.7-16.9); MCH 31.8 pg (25.7-33.7); MCHC 32.8 g/dl (32.0-35.9); MEAN CELL VOLUME 97.1 fl (80-96); MEAN PLT VOLUME 6.8 fl (7.5-11.1); PLATELET COUNT 167 K/MM3 (134-434); RBC 4.22 M/mm3 (4.00-5.60); RDW 14.5 % (11.9-15.9); WHITE BLOOD COUNT 7.5 K/mm3 (4.0-10.0)
[2017-05-31 12:33] LABS: URINE APPEARANCE SLCLOUDY; URINE BILIRUBIN NEGATIVE (NEGATIVE); URINE BLOOD 2+ (NEGATIVE); URINE COLOR DKYELLOW; URINE GLUCOSE (UA) NEGATIVE (NEGATIVE); URINE KETONE NEGATIVE (NEGATIVE); URINE LEUK ESTERASE NEGATIVE (NEGATIVE); URINE NITRITE NEGATIVE (NEGATIVE)
[2017-05-31 12:34] LABS: URINE PROTEIN 2+ (NEGATIVE)
[2017-05-31 12:49] LABS: ANION GAP 9 (8-16); CALCIUM 7.9 mg/dL (8.5-10.1); CHLORIDE 104 mmol/L (98-107); CO2 28 mmol/L (21-32); POTASSIUM 3.2 mmol/L (3.5-5.1); SODIUM 141 mmol/L (136-145)
[2017-05-31 12:50] LABS: CALCIUM OXALATE CRYSTALS MANY /hpf (NONE SEEN); URINE HYALINE CAST 4 /lpf; URINE MUCUS MANY
[2017-05-31 12:54] LABS: ALK PHOS 157 U/L (45-117); BILIRUBIN,TOTAL 0.8 mg/dL (0.2-1.0); BLOOD UREA NITROGEN 7 mg/dL (7-18); CREATININE 0.6 mg/dL (0.7-1.3); GLUCOSE,RANDOM 97 mg/dL (74-106); SGOT/AST 68 U/L (15-37); SGPT/ALT 46 U/L (12-78); TOT PROT 6.9 g/dl (6.4-8.2)
[2017-05-31] MEDS: CYCLOBENZAPRINE HCL 10 MG TABLET (FP) PO PRN (13:33)
[2017-05-31] MEDS: LIDOCAINE 5% TOPICAL PATCH TP SCH (13:33)
--- NOTE | 2017-05-31 13:45 | PN ---
[facility] CIWA - CIWA Score Nausea/Vomitin-No Nausea/No Vomiting Muscle Tremors: 3 Anxiety: 5 Agitation: 4-Moderately Restless Paroxysmal Sweats: 3 Orientation: 0-Oriented Tacttile Disturbances: 2-Mild Itch/Numbness/Burn Auditory Disturbances: 0-None Visual Disturbances: 0-None Headache: 0-None Present CIWA-Ar Total Score: 17 BHS Progress Note (SOAP) Subjective: Anxious, Diarrhea, Body Aches, Interrupted Sleep. Objective: PT. A & O X 3, OBSERVED AMBULATING ON UNIT. NO ACUTE DISTRESS. 05/31/17 13:59 Vital Signs Temperature 96.8 F L 05/31/17 10:06 Pulse Rate 85 05/31/17 10:06 Respiratory Rate 17 05/31/17 10:06 Blood Pressure 115/82 05/31/17 10:06 O2 Sat by Pulse Oximetry (%) Laboratory Tests 05/31/17 05/31/17 05/31/17 07:50 07:50 07:50 WBC 7.5 RBC 4.22 Hgb 13.4 Hct 40.9 MCV 97.1 H MCH 31.8 MCHC 32.8 RDW 14.5 Plt Count 167 D MPV 6.8 L D Sodium 141 Potassium 3.2 L D Chloride 104 Carbon Dioxide 28 Anion Gap 9 BUN 7 D Creatinine 0.6 L Creat Clearance w eGFR > 60 Random Glucose 97 Calcium 7.9 L Total Bilirubin 0.8 D AST 68 H ALT 46 Alkaline Phosphatase 157 H Total Protein 6.9 Albumin 3.0 L Urine Color Urine Appearance Urine pH Ur Specific [place] Urine Protein Urine Glucose (UA) Urine Ketones Urine Blood Urine Nitrite Urine Bilirubin Urine Urobilinogen Ur Leukocyte Esterase Urine WBC (Auto) Urine RBC (Auto) Calcium Oxalate Crystal Hyaline Casts Urine Mucus RPR Titer Nonreactive 05/31/17 08:30 WBC RBC Hgb Hct MCV MCH MCHC RDW Plt Count MPV Sodium Potassium Chloride Carbon Dioxide Anion Gap BUN Creatinine Creat Clearance w eGFR Random Glucose Calcium Total Bilirubin AST ALT Alkaline Phosphatase Total Protein Albumin Urine Color Dkyellow Urine Appearance Slcloudy Urine pH 8.0 Ur Specific [place] 1.018 Urine Protein 2+ H Urine Glucose (UA) Negative Urine Ketones Negative Urine Blood 2+ H Urine Nitrite Negative Urine Bilirubin Negative Urine Urobilinogen 2.0 Ur Leukocyte Esterase Negative Urine WBC (Auto) None Urine RBC (Auto) 19 Calcium Oxalate Crystal Many Hyaline Casts 4 Urine Mucus Many RPR Titer LABS NOTED. Assessment: 05/31/17 14:00 WITHDRAWAL SYMPTOMS. Plan: CONTINUE DETOX. INCREASE DAILY PO FLUID INTAKE. K-DUR, 20 MEQ BID (FIRST DOSE NOW.) REPEAT K LEVEL ON 06/02/2017 (PATIENT HYPOKALEMIC AND CURRENTLY TAKES ALDACTONE AND LASIX). REPEAT UA FOR ADMISSION ABNORMALITIES.
[2017-05-31] MEDS ORDERED: POTASSIUM CHLORIDE TABS 20 MEQ TABLET.ER (FP) PO ONE (14:30)
--- NOTE | 2017-05-31 14:41 | CONSULT ---
[facility] Psychiatric Consult - Data Date of interview: 05/31/17 Admission source: [facility] Identifying data: One of multiple admissions to [facility] for this 47 y/o male seeking detox treatment on for alcohol and opiate dependence.Patient is ,a father of two,domiciled,currently unemployed and supported by relatives. Substance Abuse History: Confirmed by patient in this interview.Smoking history : Never smoked. Have you smoked in the past 12 months: No. Aproximately how many cigarettes per day: 0. Cigars Per Day: 0. Hx Chewing Tobacco Use: No. - Substance & Tx. History. Hx Alcohol Use: Yes. Hx Substance Use: No. Substance Use Type: Alcohol. Hx Substance Use Treatment: Yes (DETOX: 03/2017). - Substances Abused. Alcohol. Route: Oral. Frequency: Daily. Amount used: 1 LITER OF LIQUOR; 2 6 PACK OF 12OZ BEER. Age of first use: 10. Date of Last Use: 05/30/17 Medical History: Hypertension,obesity,benign prostatic hyperplasia,neuropathy, prostatitis,cirrhosis of liver, recent history of pylonephritis and low back pain.History of arthroscopy on left shoulder (2009),exploratory laparotomy (2011 ) and umbilical herniorraphy (2013). Psychiatric History: Patient denies history of pychiatric hospitalizations.Only one brief CPEP visit at [facility] (2015).No prior history of psychiatric OPD care.Mr Blount denies history of suicide attempts. Physical/Sexual Abuse/Trauma History: No history. Additional Comment: Urine Drug Screen Results: BZO-Benzodiazepines, TCA- Tricyclic Antidepressant, OXY-Oxycodone.Noted. Mental Status Exam - Mental Status Exam Alert and Oriented to: Time, Place, Person Cognitive Function: Good Patient Appearance: Well Groomed (tattoos all over arms/forearms,chest) Mood: Hopeful Affect: Appropriate, Normal Range Patient Behavior: Appropriate, Cooperative Speech Pattern: Clear, Appropriate Voice Loudness: Normal Thought Process: Intact, Goal Oriented Thought Disorder: Not Present Hallucinations: Denies Suicidal Ideation: Denies Homicidal Ideation: Denies Insight/Judgement: Poor Sleep: Poorly, Difficulty falling asleep Appetite: Good Muscle strength/Tone: Normal Gait/Station: Normal Psychiatric Findings - Problem List ([place] 1, 2,3) (1) Alcohol dependence with uncomplicated withdrawal Current Visit: Yes Status: Acute (2) Insomnia Current Visit: Yes Status: Acute - Initial Treatment Plan Initial Treatment Plan: Psychoeducation.Detoxification in progress.Ambien 10 mg po hs prn.Patient is informed of risk of parasomnias.He agrees with this plan of care.Observation.
[2017-05-31] MEDS: GABAPENTIN 300 MG CAPSULE (FP) PO SCH ×2 (14:42→22:18)
[2017-05-31] MEDS: levETIRAcetam 500 MG TABLET (FP) PO SCH ×2 (14:42→22:18)
[2017-05-31] MEDS: POTASSIUM CHLORIDE TABS 20 MEQ TABLET.ER (FP) PO SCH (17:18)
[2017-05-31] MEDS: ZOLPIDEM TARTRATE 10 MG TABLET (PARK CARE ONLY) PO PRN (22:18)
[2017-05-31] MEDS: THIAMINE HCL 100 MG TABLET (FP) PO SCH (22:18)
[2017-05-31] MEDS: LIDOCAINE PATCH REMOVAL MC SCH (22:19)
[2017-06-01] MEDS: hydrOXYzine PAMOATE 50 MG CAPSULE (FP) PO PRN ×2 (00:26→16:34)
[2017-06-01] MEDS: chlordiazePOXIDE HCL 25 MG CAPSULE PO SCH ×3 (05:15→16:34)
[2017-06-01] MEDS: GABAPENTIN 300 MG CAPSULE (FP) PO SCH ×3 (05:15→22:39)
[2017-06-01] MEDS: PRENATAL VITAMINS W/ FOLIC ACID TABLET (FP) PO SCH (10:08)
[2017-06-01] MEDS: TAMSULOSIN HCL 0.4 MG CAP.ER.24H (FP) PO SCH (10:09)
[2017-06-01] MEDS: SPIRONOLACTONE 25 MG TABLET (FP) PO SCH (10:09)
[2017-06-01] MEDS: LIDOCAINE 5% TOPICAL PATCH TP SCH (10:09)
[2017-06-01] MEDS: FUROSEMIDE 40 MG TABLET (FP) PO SCH (10:09)
[2017-06-01] MEDS: POTASSIUM CHLORIDE TABS 20 MEQ TABLET.ER (FP) PO SCH ×2 (10:09→18:00)
[2017-06-01] MEDS: levETIRAcetam 500 MG TABLET (FP) PO SCH ×2 (10:09→22:39)
[2017-06-01] MEDS: IBUPROFEN 400 MG TABLET (FP) PO PRN ×3 (11:03→22:41)
[2017-06-01] MEDS: MAG HYDROX/AL HYDROX/SIMETH 30 ML UNIT-DOSE CUP PO PRN (11:46)
[2017-06-01] MEDS ORDERED: cloNIDine HCL 0.1 MG TABLET PO ONE (12:25)
--- NOTE | 2017-06-01 15:09 | PN ---
S CIWA - CIWA Score Nausea/Vomitin Muscle Tremors: 3 Anxiety: 3 Agitation: 3 Paroxysmal Sweats: 1-Minimal Palms Moist Orientation: 0-Oriented Tacttile Disturbances: 1-Very Mild Itch/Numbness Auditory Disturbances: 1-Very Mild Visual Disturbances: 0-None Headache: 2-Mild CIWA-Ar Total Score: 17 BHS Progress Note (SOAP) Subjective: ALERT,IRRITABLE,ANXIOUS,INTERRUPTED SLEEP,TREMOR,PAIN IN THE BODY AND BACK Objective: 06/01/17 15:07 Vital Signs Temperature 98.0 F 06/01/17 13:43 Pulse Rate 92 H 06/01/17 13:43 Respiratory Rate 18 06/01/17 13:43 Blood Pressure 135/96 06/01/17 13:43 O2 Sat by Pulse Oximetry (%) EKG NSR,NORMAL ECG Assessment: 06/01/17 15:10 WITHDRAWAL SYMPTOM Plan: CONTINUE DETOX,K REPLACEMENT FOR HYPOKALEMIA K IS 3.2,MICROSCOPIC HEMATURIA REPEAT UA REPEAT K PENDING
[2017-06-01] MEDS: cloNIDine HCL 0.1 MG TABLET PO PRN (16:33)
[2017-06-01 19:29] LABS: URINE APPEARANCE CLEAR; URINE BILIRUBIN NEGATIVE (NEGATIVE); URINE BLOOD 3+ (NEGATIVE); URINE COLOR LTYELLOW; URINE GLUCOSE (UA) NEGATIVE (NEGATIVE); URINE KETONE NEGATIVE (NEGATIVE); URINE LEUK ESTERASE NEGATIVE (NEGATIVE); URINE NITRITE NEGATIVE (NEGATIVE); URINE PROTEIN NEGATIVE (NEGATIVE); URINE UROBILINOGEN NEGATIVE mg/dL (0.2-1.0)
[2017-06-01 19:33] LABS: EPI CELLS RARE /HPF (FEW); URINE BACTERIA FEW /hpf (NONE SEEN); URINE MUCUS RARE
[2017-06-01] MEDS: chlordiazePOXIDE HCL 25 MG CAPSULE PO PRN (19:48)
[2017-06-01] MEDS: THIAMINE HCL 100 MG TABLET (FP) PO SCH (22:38)
[2017-06-01] MEDS: ZOLPIDEM TARTRATE 10 MG TABLET (PARK CARE ONLY) PO PRN (22:38)
[2017-06-01] MEDS: chlordiazePOXIDE 5 MG CAPSULE PO SCH (22:39)
[2017-06-01] MEDS: LIDOCAINE PATCH REMOVAL MC SCH (22:40)
[2017-06-02] MEDS: CYCLOBENZAPRINE HCL 10 MG TABLET (FP) PO PRN ×2 (01:35→14:06)
[2017-06-02] MEDS: ACETAMINOPHEN 325 MG TABLET (FP) PO PRN ×2 (01:35→05:33)
[2017-06-02] MEDS: hydrOXYzine PAMOATE 50 MG CAPSULE (FP) PO PRN ×2 (01:35→14:06)
[2017-06-02] MEDS: chlordiazePOXIDE HCL 25 MG CAPSULE PO PRN ×2 (03:13→19:36)
[2017-06-02] MEDS: cloNIDine HCL 0.1 MG TABLET PO PRN (05:31)
[2017-06-02] MEDS: chlordiazePOXIDE 5 MG CAPSULE PO SCH ×3 (05:32→17:08)
[2017-06-02] MEDS: GABAPENTIN 300 MG CAPSULE (FP) PO SCH ×3 (05:32→22:00)
[2017-06-02] MEDS: TAMSULOSIN HCL 0.4 MG CAP.ER.24H (FP) PO SCH (10:15)
[2017-06-02] MEDS: SPIRONOLACTONE 25 MG TABLET (FP) PO SCH (10:15)
[2017-06-02] MEDS: PRENATAL VITAMINS W/ FOLIC ACID TABLET (FP) PO SCH (10:15)
[2017-06-02] MEDS: FUROSEMIDE 40 MG TABLET (FP) PO SCH (10:16)
[2017-06-02] MEDS: LIDOCAINE 5% TOPICAL PATCH TP SCH (10:16)
[2017-06-02] MEDS: levETIRAcetam 500 MG TABLET (FP) PO SCH ×2 (10:16→22:01)
[2017-06-02] MEDS: POTASSIUM CHLORIDE TABS 20 MEQ TABLET.ER (FP) PO SCH ×2 (10:16→17:08)
[2017-06-02] MEDS ORDERED: cloNIDine HCL 0.1 MG TABLET PO ONE (11:59)
--- NOTE | 2017-06-02 17:22 | PN ---
BHS Progress Note (SOAP) Subjective: Body Aches, Interrupted Sleep, Anxious. Objective: PT. A & O X 3, OBSERVED AMBULATING ON UNIT. NO ACUTE DISTRESS. 06/02/17 17:21 Vital Signs Temperature 97.6 F 06/02/17 14:03 Pulse Rate 94 H 06/02/17 14:03 Respiratory Rate 20 06/02/17 14:03 Blood Pressure 132/97 06/02/17 14:03 O2 Sat by Pulse Oximetry (%) Laboratory Tests 05/31/17 05/31/17 05/31/17 07:50 07:50 07:50 WBC 7.5 RBC 4.22 Hgb 13.4 Hct 40.9 MCV 97.1 H MCH 31.8 MCHC 32.8 RDW 14.5 Plt Count 167 D MPV 6.8 L D Sodium 141 Potassium 3.2 L D Chloride 104 Carbon Dioxide 28 Anion Gap 9 BUN 7 D Creatinine 0.6 L Creat Clearance w eGFR > 60 Random Glucose 97 Calcium 7.9 L Total Bilirubin 0.8 D AST 68 H ALT 46 Alkaline Phosphatase 157 H Total Protein 6.9 Albumin 3.0 L Urine Color Urine Appearance Urine pH Ur Specific [place] Urine Protein Urine Glucose (UA) Urine Ketones Urine Blood Urine Nitrite Urine Bilirubin Urine Urobilinogen Ur Leukocyte Esterase Urine WBC (Auto) Urine RBC (Auto) Ur Epithelial Cells Calcium Oxalate Crystal Urine Bacteria Hyaline Casts Urine Mucus RPR Titer Nonreactive 05/31/17 06/01/17 06/02/17 08:30 17:00 08:10 WBC RBC Hgb Hct MCV MCH MCHC RDW Plt Count MPV Sodium Potassium 3.6 Chloride Carbon Dioxide Anion Gap BUN Creatinine Creat Clearance w eGFR Random Glucose Calcium Total Bilirubin AST ALT Alkaline Phosphatase Total Protein Albumin Urine Color Dkyellow Ltyellow Urine Appearance Slcloudy Clear Urine pH 8.0 6.0 D Ur Specific [place] 1.018 1.006 Urine Protein 2+ H Negative Urine Glucose (UA) Negative Negative Urine Ketones Negative Negative Urine Blood 2+ H 3+ H Urine Nitrite Negative Negative Urine Bilirubin Negative Negative Urine Urobilinogen 2.0 Negative Ur Leukocyte Esterase Negative Negative Urine WBC (Auto) None 1 Urine RBC (Auto) 19 9 Ur Epithelial Cells Rare Calcium Oxalate Crystal Many Urine Bacteria Few Hyaline Casts 4 Urine Mucus Many Rare RPR Titer LABS NOTED. RESULTS OF REPEAT K LEVEL AND REPEAT UA NOTED. 06/02/17 17:22 Assessment: 06/02/17 17:21 WITHDRAWAL SYMPTOMS. Plan: CONTINUE DETOX.
[2017-06-02] MEDS: IBUPROFEN 400 MG TABLET (FP) PO PRN (21:59)
[2017-06-02] MEDS: LIDOCAINE PATCH REMOVAL MC SCH (22:00)
[2017-06-02] MEDS: ZOLPIDEM TARTRATE 10 MG TABLET (PARK CARE ONLY) PO PRN (22:00)
[2017-06-02] MEDS: chlordiazePOXIDE HCL 10 MG CAPSULE PO SCH (22:00)
[2017-06-02] MEDS: THIAMINE HCL 100 MG TABLET (FP) PO SCH (23:07)
[2017-06-03] MEDS: hydrOXYzine PAMOATE 50 MG CAPSULE (FP) PO PRN (00:39)
[2017-06-03] MEDS: ACETAMINOPHEN 325 MG TABLET (FP) PO PRN (00:41)
[2017-06-03] MEDS: CYCLOBENZAPRINE HCL 10 MG TABLET (FP) PO PRN (01:30)
[2017-06-03] MEDS: MAG HYDROX/AL HYDROX/SIMETH 30 ML UNIT-DOSE CUP PO PRN (02:46)
[2017-06-03] MEDS: chlordiazePOXIDE HCL 10 MG CAPSULE PO SCH (05:04)
[2017-06-03] MEDS: GABAPENTIN 300 MG CAPSULE (FP) PO SCH (05:04)
[2017-06-03] MEDS: cloNIDine HCL 0.1 MG TABLET PO PRN (05:07)
[2017-06-03 06:30] VITALS: BP 142/98; PULSE 89; TEMP 97
[2017-06-03] MEDS: FUROSEMIDE 40 MG TABLET (FP) PO SCH (09:09)
[2017-06-03] MEDS: SPIRONOLACTONE 25 MG TABLET (FP) PO SCH (09:09)
[2017-06-03] MEDS: POTASSIUM CHLORIDE TABS 20 MEQ TABLET.ER (FP) PO SCH (09:09)
[2017-06-03] MEDS: TAMSULOSIN HCL 0.4 MG CAP.ER.24H (FP) PO SCH (09:09)
[2017-06-03] MEDS: levETIRAcetam 500 MG TABLET (FP) PO SCH (09:09)
--- NOTE | 2017-06-03 12:35 | DS ---
[facility] Detox Discharge Summary Admission Date: 05/30/17 Discharge Date: 06/03/17 - History Present History: Alcohol Dependence Additional Comments: DETOX COMPLETED. ALERT O X 3. NAD. Pertinent Past History: SEE DX BELOW - Physical Exam Results Vital Signs: Vital Signs Temperature 97.0 F L 06/03/17 06:28 Pulse Rate 89 06/03/17 06:28 Respiratory Rate 18 06/03/17 06:28 Blood Pressure 142/98 06/03/17 06:28 O2 Sat by Pulse Oximetry (%) Pertinent Admission Physical Exam Findings: WITHDRAWAL SX Vital Signs Temperature 97.0 F L 06/03/17 06:28 Pulse Rate 89 06/03/17 06:28 Respiratory Rate 18 06/03/17 06:28 Blood Pressure 142/98 06/03/17 06:28 O2 Sat by Pulse Oximetry (%) Laboratory Last Values WBC 7.5 K/mm3 (4.0-10.0) 05/31/17 07:50 RBC 4.22 M/mm3 (4.00-5.60) 05/31/17 07:50 Hgb 13.4 GM/dL (11.7-16.9) 05/31/17 07:50 Hct 40.9 % (35.4-49) 05/31/17 07:50 MCV 97.1 fl (80-96) H 05/31/17 07:50 MCH 31.8 pg (25.7-33.7) 05/31/17 07:50 MCHC 32.8 g/dl (32.0-35.9) 05/31/17 07:50 RDW 14.5 % (11.9-15.9) 05/31/17 07:50 Plt Count 167 K/MM3 (134-434) D 05/31/17 07:50 MPV 6.8 fl (7.5-11.1) L D 05/31/17 07:50 Sodium 141 mmol/L (136-145) 05/31/17 07:50 Potassium 3.6 mmol/L (3.5-5.1) 06/02/17 08:10 Chloride 104 mmol/L (98-107) 05/31/17 07:50 Carbon Dioxide 28 mmol/L (21-32) 05/31/17 07:50 Anion Gap 9 (8-16) 05/31/17 07:50 BUN 7 mg/dL (7-18) D 05/31/17 07:50 Creatinine 0.6 mg/dL (0.7-1.3) L 05/31/17 07:50 Creat Clearance w eGFR > 60 (>60) 05/31/17 07:50 Random Glucose 97 mg/dL (74-106) 05/31/17 07:50 Calcium 7.9 mg/dL (8.5-10.1) L 05/31/17 07:50 Total Bilirubin 0.8 mg/dL (0.2-1.0) D 05/31/17 07:50 AST 68 U/L (15-37) H 05/31/17 07:50 ALT 46 U/L (12-78) 05/31/17 07:50 Alkaline Phosphatase 157 U/L (45-117) H 05/31/17 07:50 Total Protein 6.9 g/dl (6.4-8.2) 05/31/17 07:50 Albumin 3.0 g/dl (3.4-5.0) L 05/31/17 07:50 Urine Color Ltyellow 06/01/17 17:00 Urine Appearance Clear 06/01/17 17:00 Urine pH 6.0 (5.0-8.0) D 06/01/17 17:00 Ur Specific [place] 1.006 (1.001-1.035) 06/01/17 17:00 Urine Protein Negative (NEGATIVE) 06/01/17 17:00 Urine Glucose (UA) Negative (NEGATIVE) 06/01/17 17:00 Urine Ketones Negative (NEGATIVE) 06/01/17 17:00 Urine Blood 3+ (NEGATIVE) H 06/01/17 17:00 Urine Nitrite Negative (NEGATIVE) 06/01/17 17:00 Urine Bilirubin Negative (NEGATIVE) 06/01/17 17:00 Urine Urobilinogen Negative mg/dL (0.2-1.0) 06/01/17 17:00 Ur Leukocyte Esterase Negative (NEGATIVE) 06/01/17 17:00 Urine WBC (Auto) 1 /hpf (3-5) 06/01/17 17:00 Urine RBC (Auto) 9 /hpf (0-3) 06/01/17 17:00 Ur Epithelial Cells Rare /HPF (FEW) 06/01/17 17:00 Calcium Oxalate Crystal Many /hpf (NONE SEEN) 05/31/17 08:30 Urine Bacteria Few /hpf (NONE SEEN) 06/01/17 17:00 Hyaline Casts 4 /lpf 05/31/17 08:30 Urine Mucus Rare 06/01/17 17:00 RPR Titer Nonreactive (NONREACTIVE) 05/31/17 07:50 - Treatment Hospital Course: Detox Protocol Followed, Detoxed Safely, Responded well, Discharged Condition Good, Rehab Referral Accepted Patient has Accepted a Rehab Referral to: [facility] IOP - Medication Discharge Medications: Ambulatory Orders Gabapentin [Neurontin -] 600 mg PO TID 05/30/16 Furosemide [Lasix] 40 mg PO DAILY #3 tablet 06/23/16 Cyclobenzaprine HCl [Flexeril -] 10 mg PO TID 03/25/17 levETIRAcetam [Keppra -] 1,000 mg PO BID 03/25/17 Folic Acid - 1 mg PO DAILY #30 tablet 03/27/17 Lactobacillus Acidophilus [Probiotic] 1 each PO DAILY #10 capsule 03/27/17 Tamsulosin HCl [Flomax -] 0.4 mg PO DAILY@0830 #30 cap.er.24h 03/27/17 Thiamine HCl [Vitamin B1 -] 100 mg PO HS #30 tablet 03/27/17 Polyethylene Glycol 3350 [Miralax 119 gm Btl -] 17 gm PO DAILY bottle 04/05/17 Spironolactone [Aldactone -] 25 mg PO DAILY #30 tablet 04/05/17 Oxycodone HCl 20 mg PO QID PRN 05/18/17 - Diagnosis (1) Alcohol dependence with uncomplicated withdrawal Status: Acute (2) Alcohol withdrawal seizure Status: Chronic Qualifiers: Complication of substance-induced condition: uncomplicated Qualified Code(s ): F10.230 - Alcohol dependence with withdrawal, uncomplicated (3) BPH (benign prostatic hyperplasia) Status: Chronic Qualifiers: Lower urinary tract symptom presence: unspecified whether lower urinary tract symptoms present Qualified Code(s): N40.0 - Benign prostatic hyperplasia without lower urinary tract symptoms (4) History of cirrhosis of liver Status: Chronic (5) History of seizure Status: Chronic (6) Hypertension Status: Chronic Qualifiers: Hypertension type: essential hypertension Qualified Code(s): I10 - Essential (primary) hypertension (7) Lower extremity edema Status: Chronic (8) Neuropathy Status: Chronic - AMA Did Patient Leave Against Medical Advice: No
== END 2017-06-03 09:23 | disposition home or self-care (01) | DRG 775 ==
LOC: YASAS 15:52 → Y3N 21:53
PROVIDERS: ADMIT Internal Medicine; ATTEND Internal Medicine
PROC: HZ2ZZZZ Detoxification Services for Substance Abuse Treatment (ICD-10-PCS; principal; 2017-05-30)
DX: F10.230 Alcohol dependence with withdrawal, uncomplicated (principal); G40.509 Epileptic seizures related to external causes, not intractable, without status epilepticus; G62.9 Polyneuropathy, unspecified; R60.0 Localized edema; N40.0 Benign prostatic hyperplasia without lower urinary tract symptoms; K74.60 Unspecified cirrhosis of liver; Z87.19 Personal history of other diseases of the digestive system; G47.00 Insomnia, unspecified; I10 Essential (primary) hypertension
CPT/HCPCS: 36415; 80053; 81003; 81015; 84132; 85027; 86593; 93005; 93010; J0735

== ENCOUNTER 2017-09-03 08:20 | Inpatient (IN) | payer OTHER ==
[2017-09-03 09:10] LABS: BASO % 0.4 % (0-2.0); EOS % 2.6 % (0-4.5); HEMOGLOBIN 14.8 GM/dL (11.7-16.9); LYMPH % 22.5 % (8-40); MCH 33.5 pg (25.7-33.7); MCHC 34.4 g/dl (32.0-35.9); MEAN CELL VOLUME 97.2 fl (80-96); MEAN PLT VOLUME 7.3 fl (7.5-11.1); MONO % 13.6 % (3.8-10.2); NEUT % 60.9 % (42.8-82.8); PLATELET COUNT 170 K/MM3 (134-434); RBC 4.42 M/mm3 (4.00-5.60); RDW 14.1 % (11.9-15.9); WHITE BLOOD COUNT 6.7 K/mm3 (4.0-10.0)
[2017-09-03] MEDS ORDERED: KETOROLAC TROMETHAMINE 60 MG/2 ML VIAL IM ONE (09:11)
--- NOTE | 2017-09-03 09:16 | PDOC ---
History of Present Illness - General History Source: Patient - History of Present Illness Occurred: reports: other Lower Extremity Pain Location: right: knee <Megan Knott - Last Filed: 09/03/17 11:57> <Marah Gallardo - Last Filed: 09/03/17 16:54> - General Chief Complaint: Pain, Acute Stated Complaint: SWOLLEN RT KNEE Time Seen by Provider: 09/03/17 08:25 Past History - Past Medical History Anemia: No Asthma: No Cancer: No Cardiac Disorders: No CVA: No COPD: No CHF: No DVT: No Dementia: No Diabetes: No GI Disorders: No Disorders: Yes (BPH) HTN: No Hypercholesterolemia: No Kidney Stones: No Liver Disease: Yes (fatty liver, CIRRHOSIS) Psychiatric Problems: Yes (ANXIETY) Seizures: Yes (DOES NOT RECALL LAST SZ; PRESCRIBED KEPPRA BUT DOESN'T RECALL LAST USED) Thyroid Disease: No - Surgical History Abdominal Surgery: Yes (LAP BAND 2009/umbilical hernia repaired 2013) Appendectomy: No Cardiac Surgery: No Cholecystectomy: No GI Surgery: Yes (hernia repair) Lung Surgery: No Neurologic Surgery: No Orthopedic Surgery: Yes (ARTHROSCOPY LEFT SHOULDER 2011) - Reproductive History Testicular Surgery: No - Immunization History Immunization Up to Date: Yes - Suicide/Smoking/Psychosocial Hx Smoking Status: No Smoking History: Never smoked Have you smoked in the past 12 months: No Number of Cigarettes Smoked Daily: 0 Cigars Per Day: 0 Information on smoking cessation initiated: No 'Breaking Loose' booklet given: 01/23/17 Hx Alcohol Use: Yes Drug/Substance Use Hx: No Substance Use Type: Alcohol Hx Substance Use Treatment: Yes ([facility] TO 06/02/17) <Megan Knott - Last Filed: 09/03/17 11:57> <Marah Gallardo - Last Filed: 09/03/17 16:54> - Past Medical History Allergies/Adverse Reactions: Allergies Allergy/AdvReac Type Severity Reaction Status Date / Time No Known Allergies Allergy Verified 09/03/17 08:25 Home Medications: Ambulatory Orders Furosemide [Lasix] 40 mg PO DAILY 09/03/17 Gabapentin 600 mg PO DAILY 09/03/17 Oxycodone HCl/Acetaminophen [Percocet 10-325 mg Tablet] 1 each PO ASDIR levETIRAcetam [Keppra Xr -] 1,000 mg PO BID 09/03/17 Review of Systems - Review of Systems Constitutional: No: Chills, Fever HEENTM: No: Blurred Vision ABD/GI: No: Nausea, Vomiting, Abdominal cramping Musculoskeletal: Yes: Joint Pain, Joint Swelling Neurological: Yes: Tremors, Dizziness. No: Headache Psychiatric: Yes: Anxiety <Megan Knott - Last Filed: 09/03/17 11:57> *Physical Exam - Vital Signs Last Vital Signs Temp Pulse Resp BP Pulse Ox 98.1 F 115 H 20 120/82 99 09/03/17 08:23 09/03/17 08:23 09/03/17 08:23 09/03/17 08:23 09/03/17 08:23 - Physical Exam General Appearance: Yes: Appropriately Dressed. No: Apparent Distress HEENT: positive: Normal Voice Neck: positive: Supple Respiratory/Chest: negative: Respiratory Distress Extremity: positive: Tender, Swelling (diffusely to R knee, no sig ttp, no red. hot joint, FROMI, able to bear weight) Integumentary: positive: Dry, Warm Neurologic: positive: Fully Oriented, Alert, Normal Mood/Affect, Other (fine tremors to hands b/l) <Megan Knott - Last Filed: 09/03/17 11:57> - Vital Signs Last Vital Signs Temp Pulse Resp BP Pulse Ox 98.1 F 115 H 20 120/82 99 09/03/17 08:23 09/03/17 08:23 09/03/17 08:23 09/03/17 08:23 09/03/17 08:23 <Marah Gallardo - Last Filed: 09/03/17 16:54> ED Treatment Course - LABORATORY CBC & Chemistry Diagram: 09/03/17 08:49 09/03/17 08:49 <Megan Knott - Last Filed: 09/03/17 11:57> - LABORATORY CBC & Chemistry Diagram: 09/03/17 08:49 09/03/17 08:49 - ADDITIONAL ORDERS Additional order review: Laboratory Results 09/03/17 09/03/17 08:49 08:49 PT with INR 14.00 H INR 1.24 H Sodium 135 L Potassium 3.6 Chloride 98 Carbon Dioxide 28 Anion Gap 9 BUN 6 L Creatinine 0.7 D Creat Clearance w eGFR > 60 Random Glucose 109 H Calcium 8.6 Total Bilirubin 2.4 H D AST 100 H D ALT 58 D Alkaline Phosphatase 214 H D Total Protein 8.1 D Albumin 3.5 09/03/17 08:49 RBC 4.42 MCV 97.2 H MCHC 34.4 RDW 14.1 MPV 7.3 L Neutrophils % 60.9 D Lymphocytes % 22.5 D Monocytes % 13.6 H Eosinophils % 2.6 Basophils % 0.4 - Medications Given in the ED: ED Medications Discontinued Medications Generic Name Dose Route Start Last Admin Trade Name Freq PRN Reason Stop Dose Admin Chlordiazepoxide HCl 50 mg 09/03/17 09:49 09/03/17 10:04 Librium - PO 09/03/17 09:50 50 mg ONCE ONE Administration Diazepam 10 mg 09/03/17 09:24 09/03/17 10:05 Valium Injection - IVPUSH 09/03/17 09:25 Not Given ONCE ONE Sodium Chloride 1,000 mls @ 1,000 mls/hr 09/03/17 09:25 09/03/17 10:04 Normal Saline - IV 09/03/17 10:24 1,000 mls/hr ASDIR STA Administration Ketorolac Tromethamine 60 mg 09/03/17 09:11 09/03/17 10:05 Toradol Injection - IM 09/03/17 09:12 Not Given ONCE ONE Ketorolac Tromethamine 30 mg 09/03/17 09:49 09/03/17 10:04 Toradol Injection - IVPUSH 09/03/17 09:50 30 mg ONCE ONE Administration Lorazepam 2 mg 09/03/17 11:47 09/03/17 11:56 Ativan Injection - IVPUSH 09/03/17 11:48 2 mg ONCE ONE Administration <Marah Gallardo - Last Filed: 09/03/17 16:54> Medical Decision Making - Medical Decision Making 09/03/17 09:31 47-year-old male, morbidly obese, chronic back pain with herniated disc on MRI in the past per patient, chronic bilateral knee pain with "ligamental damage" on MRI, follows up with ortho at [facility] and get frequent cortisone injections, currently on gabapentin and percocet at home, alcohol withdrawal seizures on Keppra here with multiple complaints. Patient complaining of his usual right knee pain that started several days ago. Also reports some swelling. No recent injuries. No fever or chills. States percocet helps mildly with pain at home. Patient also reports that he had a seizure last night. States around 8 PM last night, became thirsty and went to the fridge to get Gatorade. States the last thing he remembers is sitting up on his bed and opening bottle. Next thing he remembers is waking up on bed with Gatorade spilled all over his clothes. Complaining of dizziness and feeling nervous this a.m. No JOYCE, n/v. Last alcohol intake was a day and a half ago. States he is trying to cut down on drinking as was told by PMD that there was already some possible liver damage. Patient reports that he does drink several days a week See exam ETOH withdrawal C/B seizure On keppra 1000mg BID and compliant per pt, took am dose today Tachy in ER to 115 w/ fine tremors -valium -IVF -labs -anticipate admission R Knee pain Chronic w/ "ligamental damage" on MRI per pt No e/o infection, no h/o gout -pain control -BROCK -ortho f/u 09/03/17 11:52 Mild elevated liver enzymes, most likely secondary to alcohol abuse. Patient reports feeling better in ED but mildly anxious. Ativan in progress. Case discussed with ED attending, Dr Gallardo, who states patient should come in at least for observation 09/03/17 11:[address] Hanley and patient admitted <Megan Knott - Last Filed: 09/03/17 11:57> *DC/Admit/Observation/Transfer - Discharge Dispostion Decision to Admit order: Yes <Megan Knott - Last Filed: 09/03/17 11:57> - Attestations Physician Attestion: I reviewed the case with the mid-level practitioner and agree with the mid- level practitioner's assessment, diagnosis and disposition. <Marah Gallardo - Last Filed: 09/03/17 16:54> Diagnosis at time of Disposition: Alcohol withdrawal seizure Qualifiers: Complication of substance-induced condition: with unspecified complication Qualified Code(s): F10.239 - Alcohol dependence with withdrawal, unspecified - Discharge Dispostion Condition at time of disposition: Fair
[2017-09-03 09:23] LABS: INR 1.24 (0.82-1.09)
[2017-09-03] MEDS ORDERED: diazePAM CARPU-JECT 10 MG/2 ML DISP.SYRIN IVPUSH ONE (09:24)
[2017-09-03] MEDS ORDERED: SODIUM CHLORIDE 1,000 ML IV STA (09:25)
[2017-09-03 09:43] LABS: ALBUMIN 3.5 g/dl (3.4-5.0); ALK PHOS 214 U/L (45-117); ANION GAP 9 (8-16); BILIRUBIN,TOTAL 2.4 mg/dL (0.2-1.0); BLOOD UREA NITROGEN 6 mg/dL (7-18); CALCIUM 8.6 mg/dL (8.5-10.1); CHLORIDE 98 mmol/L (98-107); CO2 28 mmol/L (21-32); CREATININE 0.7 mg/dL (0.7-1.3); GLUCOSE,RANDOM 109 mg/dL (74-106); POTASSIUM 3.6 mmol/L (3.5-5.1); SGOT/AST 100 U/L (15-37); SGPT/ALT 58 U/L (12-78); SODIUM 135 mmol/L (136-145); TOT PROT 8.1 g/dl (6.4-8.2)
[2017-09-03] MEDS ORDERED: chlordiazePOXIDE HCL 25 MG CAPSULE PO ONE (09:49)
[2017-09-03] MEDS ORDERED: KETOROLAC TROMETHAMINE 30 MG/1 ML VIAL ONE (09:49)
[2017-09-03] MEDS ORDERED: KETOROLAC TROMETHAMINE 30 MG/1 ML VIAL IVPUSH ONE (09:49)
[2017-09-03] MEDS ORDERED: chlordiazePOXIDE HCL 25 MG CAPSULE ONE ×3 (09:49→23:20)
[2017-09-03] MEDS ORDERED: ONDANSETRON 4 MG/2 ML VIAL IVPUSH PRN (15:10)
[2017-09-03] MEDS ORDERED: chlordiazePOXIDE HCL 25 MG CAPSULE PO PRN (15:21)
--- NOTE | 2017-09-03 15:21 | HP ---
Admitting History and Physical - Primary Care Physician PCP: Neil Rush - Admission Chief Complaint: I think I had a seizure History of Present Illness: Mr Blount is a 47 year old male who comes in with concerns about a possible seizure. He says that he was feeling lightheaded early this morning and decided to get up and get a gatorade. When he stood up he saw black spots but was able to get the gatorade and sit down. However the next thing he remembers is waking up with gatorade spilled over him. He says he knew where he was and was not confused. He did not bite his tongue. Because of this he came in. However while here he also says that he is having severe R knee pain. He says he has chronic pain in this knee but over the past few days it has become swollen and painful. He has not had trauma to the knee. He is requesting pain medications as well for this. Aside from these two things he is without complaint. He denies fevers , chills, chest pain, shortness of breath, nausea, vomiting, diarrhea, constipation, difficulty or pain on urination, or swelling outside of the right knee. He says that he has not quit drinking but has cut back. He says his last drink was 2 days ago where he drank "around 8 beers". Of note in the ED he presented with shaking that was relieved with IV ativan. 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: Seizure (questionable vs pseudoseizures ) Cardiovascular: Yes: HTN Pulmonary: Yes: Sleep Apnea Hepatobiliary: Yes: Cirrhosis Psych: Yes: Addictions (alcohol) Musculoskeletal: Yes: Chronic low back pain - Past Surgical History Past Surgical History: Yes: Arthrosocopy (left shoulder, right knee), Bariatric Surgery (gastric band) - Smoking History Smoking history: Never smoked Have you smoked in the past 12 months: No Aproximately how many cigarettes per day: 0 - Alcohol/Substance Use Hx Alcohol Use: Yes Number of Drinks Daily: 5 History of Substance Use: reports: None Date of Last Use: 03/24/17 - Social History Usual Living Arrangement: Yes: With Parent ADL: Independent 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 of Recent Travel: No Home Medications - Allergies Allergies/Adverse Reactions: Allergies Allergy/AdvReac Type Severity Reaction Status Date / Time No Known Allergies Allergy Verified 09/03/17 08:25 - Home Medications Home Medications: Ambulatory Orders Furosemide [Lasix] 40 mg PO DAILY 09/03/17 Gabapentin 600 mg PO DAILY 09/03/17 Oxycodone HCl/Acetaminophen [Percocet 10-325 mg Tablet] 1 each PO ASDIR levETIRAcetam [Keppra Xr -] 1,000 mg PO BID 09/03/17 Family Disease History - Family Disease History Family Disease History: Other: Father (Alive: 65 alcoholic), Mother (Alive: 62: healthy), Brother (Alive: Healthy), Sister (Alive: Healthy), Son (Healthy), Daughter (Healthy) Review of Systems Findings/Remarks: Full review of systems obtained, as per HPI and otherwise negative Physical Examination Vital Signs: Vital Signs Temperature 36.7 C 09/03/17 08:23 Pulse Rate 115 H 09/03/17 08:23 Respiratory Rate 20 09/03/17 08:23 Blood Pressure 120/82 09/03/17 08:23 O2 Sat by Pulse Oximetry (%) 99 09/03/17 08:23 Constitutional: Yes: Well Nourished, No Distress, Calm Eyes: Yes: Conjunctiva Clear, EOM Intact, PERRL HENT: Yes: Atraumatic, Normocephalic Cardiovascular: Yes: Regular Rate and Rhythm. No: Gallop, Murmur, Rub Respiratory: Yes: Regular, CTA Bilaterally. No: Rales, Rhonchi, Wheezes Gastrointestinal: Yes: Normal Bowel Sounds, Soft. No: Distention, Tenderness Extremities: Yes: WNL Edema: RLE: 1+ (patella) Labs: CBC, BMP 09/03/17 08:49 09/03/17 08:49 Imaging - Results X-ray: Pending Ultrasound: Pending Problem List - Problems (1) Alcohol withdrawal seizure Assessment/Plan: -seizure vs syncopal episode -description closer to syncope, but possible seizure -will check echo and carotid ultrasound -obtain orthostatics -states compliant with keppra -continue keppra -consult neurology -librium taper Code(s): F10.239 - ALCOHOL DEPENDENCE WITH WITHDRAWAL, UNSPECIFIED; R56.9 - UNSPECIFIED CONVULSIONS Qualifiers: Complication of substance-induced condition: with unspecified complication Qualified Code(s): F10.239 - Alcohol dependence with withdrawal, unspecified; R56.9 - Unspecified convulsions (2) Alcoholism Assessment/Plan: -as above Code(s): F10.20 - ALCOHOL DEPENDENCE, UNCOMPLICATED (3) BPH (benign prostatic hyperplasia) Assessment/Plan: -continue tamsulosin Code(s): N40.0 - BENIGN PROSTATIC HYPERPLASIA WITHOUT LOWER URINRY TRACT SYMP Qualifiers: Lower urinary tract symptom presence: unspecified whether lower urinary tract symptoms present Qualified Code(s): N40.0 - Benign prostatic hyperplasia without lower urinary tract symptoms (4) Hypertension Assessment/Plan: -continue lasix and aldactone -may need to hold if orthostatic -controlled Code(s): I10 - ESSENTIAL (PRIMARY) HYPERTENSION Qualifiers: Hypertension type: essential hypertension Qualified Code(s): I10 - Essential (primary) hypertension (5) Lower extremity edema Assessment/Plan: -R patellar edema -obtain carotid ultrasound to rule out DVT -consult ortho if negative Code(s): R60.0 - LOCALIZED EDEMA (6) Neuropathy Assessment/Plan: -continue home regimen Code(s): G62.9 - POLYNEUROPATHY, UNSPECIFIED (7) Alcoholic cirrhosis of liver Assessment/Plan: -again encourage cessation of alcohol Code(s): K70.30 - ALCOHOLIC CIRRHOSIS OF LIVER WITHOUT ASCITES Qualifiers: Ascites presence: without ascites Qualified Code(s): K70.30 - Alcoholic cirrhosis of liver without ascites (8) Chronic pain Assessment/Plan: -continue home oxycodone regimen Code(s): G89.29 - OTHER CHRONIC PAIN Qualifiers: Chronic pain type: chronic pain syndrome Qualified Code(s): G89.4 - Chronic pain syndrome (9) Knee pain, bilateral Assessment/Plan: -worse in right today -as above Code(s): M25.561 - PAIN IN RIGHT KNEE; M25.562 - PAIN IN LEFT KNEE
[2017-09-03] MEDS ORDERED: oxyCODONE HCL 5 MG TABLET ONE ×3 (15:39→22:11)
[2017-09-03] MEDS: oxyCODONE HCL 5 MG TABLET PO PRN ×2 (16:02→22:28)
[2017-09-03] MEDS ORDERED: ENOXAPARIN NA (PORCINE) 60 MG/0.6 ML DISP.SYRIN SQ ONE (17:15)
[2017-09-03] MEDS ORDERED: ENOXAPARIN NA (PORCINE) 120 MG/0.8 ML DISP.SYRIN SQ ONE (17:15)
[2017-09-03] MEDS: chlordiazePOXIDE HCL 25 MG CAPSULE PO SCH ×2 (18:29→23:32)
[2017-09-03] MEDS ORDERED: CYCLOBENZAPRINE HCL 5 MG TABLET PO SCH (22:00)
[2017-09-03] MEDS ORDERED: levETIRAcetam 500 MG TABLET (FP) PO ONE (22:11)
[2017-09-03] MEDS ORDERED: CYCLOBENZAPRINE HCL 10 MG TABLET (FP) ONE (22:11)
[2017-09-03] MEDS ORDERED: GABAPENTIN 100 MG CAPSULE (FP) ONE (22:11)
[2017-09-03] MEDS: levETIRAcetam XR 500 MG TAB PO SCH (22:28)
[2017-09-03] MEDS: GABAPENTIN 300 MG CAPSULE (FP) PO SCH (22:28)
[2017-09-04] MEDS: chlordiazePOXIDE HCL 25 MG CAPSULE PO SCH ×4 (04:57→22:27)
[2017-09-04] MEDS: oxyCODONE HCL 5 MG TABLET PO PRN ×3 (04:57→18:16)
[2017-09-04] MEDS: GABAPENTIN 300 MG CAPSULE (FP) PO SCH ×3 (05:06→21:40)
[2017-09-04] MEDS: CYCLOBENZAPRINE HCL 10 MG TABLET (FP) PO SCH ×3 (06:07→21:40)
[2017-09-04 08:10] VITALS: BMI 36.3
[2017-09-04 08:29] LABS: BASO % 0.9 % (0-2.0); EOS % 4.7 % (0-4.5); HEMATOCRIT 37.1 % (35.4-49); HEMOGLOBIN 12.7 GM/dL (11.7-16.9); LYMPH % 34.7 % (8-40); MCH 33.3 pg (25.7-33.7); MCHC 34.3 g/dl (32.0-35.9); MEAN CELL VOLUME 97.1 fl (80-96); MEAN PLT VOLUME 7.7 fl (7.5-11.1); MONO % 12.8 % (3.8-10.2); NEUT % 46.9 % (42.8-82.8); PLATELET COUNT 109 K/MM3 (134-434); RBC 3.82 M/mm3 (4.00-5.60); WHITE BLOOD COUNT 4.7 K/mm3 (4.0-10.0)
[2017-09-04] MEDS: TAMSULOSIN HCL 0.4 MG CAP.ER.24H (FP) PO SCH (08:50)
[2017-09-04 08:59] LABS: CHLORIDE 100 mmol/L (98-107); POTASSIUM 3.3 mmol/L (3.5-5.1); SODIUM 136 mmol/L (136-145)
[2017-09-04 09:36] LABS: ALBUMIN 2.9 g/dl (3.4-5.0); ALK PHOS 161 U/L (45-117); ANION GAP 8 (8-16); BILIRUBIN,TOTAL 2.1 mg/dL (0.2-1.0); BLOOD UREA NITROGEN 11 mg/dL (7-18); CALCIUM 7.8 mg/dL (8.5-10.1); CO2 28 mmol/L (21-32); CREATININE 0.6 mg/dL (0.7-1.3); GLUCOSE,RANDOM 85 mg/dL (74-106); MAGNESIUM 1.5 mg/dL (1.8-2.4); PHOSPHOROUS 4.1 mg/dL (2.5-4.9); SGOT/AST 73 U/L (15-37); SGPT/ALT 49 U/L (12-78); TOT PROT 6.6 g/dl (6.4-8.2)
--- NOTE | 2017-09-04 09:42 | CONSULT ---
Consult - text type - Consultation Consultation Note: Neurology History of Present Illness: 47 year old male admitted for possible seizure, reportedly was feeling lightheaded on morning of admission and decided to get up and get a gatorade. When he stood up he saw black spots but was able to get the gatorade and sit down. However the next thing he remembers is waking up with gatorade spilled over him. He says he knew where he was and was not confused, no incontinence, no tongue biting. Extensive conversation with him today. Reports being on Keppra 1000mg twice daily and advised him Etoh cessation would be the most effective seizure prevention. Keppra would not prevent against alcohol related and alcohol withdrawal seizures. Unclear if this event was even seizure and possibly more syncopal, nonetheless, provided counceling to patient in hopes of future prevention. Patient appreciated insight and recommendations and reports being motivated to change habits. Also discussed Carotid Doppler report and no HD stenosis noted. - Past Medical History [employer]GER [employer]: Yes: Seizure (questionable vs pseudoseizures ) Cardiovascular: Yes: HTN Pulmonary: Yes: Sleep Apnea Hepatobiliary: Yes: Cirrhosis Psych: Yes: Addictions (alcohol) Musculoskeletal: Yes: Chronic low back pain - Past Surgical History Past Surgical History: Yes: Arthrosocopy (left shoulder, right knee), Bariatric Surgery (gastric band) - Smoking History Smoking history: Never smoked Have you smoked in the past 12 months: No Aproximately how many cigarettes per day: 0 - Alcohol/Substance Use Hx Alcohol Use: Yes Number of Drinks Daily: 5 History of Substance Use: reports: None Date of Last Use: 03/24/17 - Social History Usual Living Arrangement: Yes: With Parent ADL: Independent 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 of Recent Travel: No Home Medications - Allergies Allergies/Adverse Reactions: Allergies Allergy/AdvReac Type Severity Reaction Status Date / Time No Known Allergies Allergy Verified 09/03/17 08:25 - Home Medications Home Medications: Ambulatory Orders Furosemide [Lasix] 40 mg PO DAILY 09/03/17 Gabapentin 600 mg PO DAILY 09/03/17 Oxycodone HCl/Acetaminophen [Percocet 10-325 mg Tablet] 1 each PO ASDIR levETIRAcetam [Keppra Xr -] 1,000 mg PO BID 09/03/17 Family Disease History - Family Disease History Family Disease History: Other: Father (Alive: 65 alcoholic), Mother (Alive: 62: healthy), Brother (Alive: Healthy), Sister (Alive: Healthy), Son (Healthy), Daughter (Healthy) Review of Systems Findings/Remarks: Full review of systems obtained, as per HPI and otherwise negative Physical Examination Vital Signs: Vital Signs Temperature 36.7 C 09/03/17 08:23 Pulse Rate 115 H 09/03/17 08:23 Respiratory Rate 20 09/03/17 08:23 Blood Pressure 120/82 09/03/17 08:23 O2 Sat by Pulse Oximetry (%) 99 09/03/17 08:23 Constitutional: Yes: Well Nourished, No Distress, Calm Eyes: Yes: Conjunctiva Clear, EOM Intact, PERRL, jaundice noted HENT: Yes: Atraumatic, Normocephalic Cardiovascular: Yes: Regular Rate and Rhythm. No: Gallop, Murmur, Rub Respiratory: Yes: Regular, CTA Bilaterally. No: Rales, Rhonchi, Wheezes Gastrointestinal: Yes: Normal Bowel Sounds, Soft. No: Distention, Tenderness Extremities: Yes: WNL Neuro: CN intact, slight tremoulessness noted, strenght intact, sensory grossly intact, no ataxia but slight antalgic gait CBCD WBC 4.7 K/mm3 (4.0-10.0) 09/04/17 07:11 RBC 3.82 M/mm3 (4.00-5.60) L 09/04/17 07:11 Hgb 12.7 GM/dL (11.7-16.9) D 09/04/17 07:11 Hct 37.1 % (35.4-49) 09/04/17 07:11 MCV 97.1 fl (80-96) H 09/04/17 07:11 MCHC 34.3 g/dl (32.0-35.9) 09/04/17 07:11 RDW 14.0 % (11.9-15.9) 09/04/17 07:11 Plt Count 109 K/MM3 (134-434) L D 09/04/17 07:11 MPV 7.7 fl (7.5-11.1) 09/04/17 07:11 CMP Sodium 136 mmol/L (136-145) 09/04/17 07:11 Potassium 3.3 mmol/L (3.5-5.1) L 09/04/17 07:11 Chloride 100 mmol/L (98-107) 09/04/17 07:11 Carbon Dioxide 28 mmol/L (21-32) 09/03/17 08:49 Anion Gap 9 (8-16) 09/03/17 08:49 BUN 6 mg/dL (7-18) L 09/03/17 08:49 Creatinine 0.7 mg/dL (0.7-1.3) D 09/03/17 08:49 Creat Clearance w eGFR > 60 (>60) 09/03/17 08:49 Calcium 8.6 mg/dL (8.5-10.1) 09/03/17 08:49 Total Bilirubin 2.4 mg/dL (0.2-1.0) H D 09/03/17 08:49 AST 100 U/L (15-37) H D 09/03/17 08:49 ALT 58 U/L (12-78) D 09/03/17 08:49 Alkaline Phosphatase 214 U/L (45-117) H D 09/03/17 08:49 Total Protein 8.1 g/dl (6.4-8.2) D 09/03/17 08:49 Albumin 3.5 g/dl (3.4-5.0) 09/03/17 08:49 Imaging Carotid noted, no HD stenosis Plan: 47 year old male admitted for possible seizure, reportedly was feeling lightheaded on morning of admission and decided to get up and get a gatorade. When he stood up he saw black spots but was able to get the gatorade and sit down. However the next thing he remembers is waking up with gatorade spilled over him. He says he knew where he was and was not confused, no incontinence, no tongue biting. Extensive conversation with him today. Reports being on Keppra 1000mg twice daily and advised him Etoh cessation would be the most effective seizure prevention. Keppra would not prevent against alcohol related and alcohol withdrawal seizures. Unclear if this event was even seizure and possibly more syncopal, nonetheless, provided counceling to patient in hopes of future prevention. Patient appreciated insight and recommendations and reports being motivated to change habits. Also discussed Carotid Doppler report and no HD stenosis noted. Conitnue medical mgmt, librium taper. Consider detox program. Continue Keppra 1000mg for now. Orthostatics/cardiac eval. Hydration recommended, multivitamin. Monitor BP, maintain normotensive range.
[2017-09-04] MEDS ORDERED: PNEUMOC 13-VAL CONJ-DIP CRM/PF 0.5 ML DISP.SYRIN IM ONE (10:00)
--- NOTE | 2017-09-04 10:16 | PN ---
Progress Note (short form) - Note Progress Note: Pt seen and examined. He is a 47 yo Male (alcoholic?) with chronic right knee pain, has had 15 shots of cortisone, it had hurt for 3 days, no recent trauma except for recent seizure or he passed out bc of ETOH. Now right knee is much better. He can fully ambulate with little pain. PE Pt's right knee looks fine. No erythema, no signs of recent trauma. Minimal joint effusion, no soft tissue swelling. No instability, good ROM, nl strength. ` He can walk, full weight bearing with no pain or problems. Xrays Look good. Minimal OA PF joint, no acute hugo pathology Imp Acute on chronic right knee pain, now much better. Rec I spoke with Dr Hanley Pt can be DC'd from an orthopedic pov NTD orthopedically He will f/u with his Orthopedist as an out pt for further treatment
[2017-09-04] MEDS: PANTOPRAZOLE 40 MG TABLET (FP) PO SCH (10:51)
[2017-09-04] MEDS: FUROSEMIDE 40 MG TABLET (FP) PO SCH (10:51)
[2017-09-04] MEDS: SPIRONOLACTONE 25 MG TABLET (FP) PO SCH (10:51)
[2017-09-04] MEDS: ENOXAPARIN NA (PORCINE) 40 MG/0.4 ML DISP.SYRIN SQ SCH (10:51)
[2017-09-04] MEDS ORDERED: PT OWN MED DRAWER 7, Y5N ONE (10:53)
[2017-09-04] MEDS: levETIRAcetam XR 500 MG TAB PO SCH ×2 (10:56→21:40)
--- NOTE | 2017-09-04 11:40 | CON.CARD ---
Cardiology Consult (text) - Consultation Consultation Note: cc: syncope hpi: 47 m hx seizures, etoh abuse, htn, venous insuff/le edema here with syncope. Awoke at night to use bathroom, then after got a bottle of gatorade and sat on bed to drink it. He started to feel lightheaded and then passed out and awoke with drink spilled on him. No cp, sob, pnd, orthopnea,le edema. Occasional palps if anxious. Similar episodes in past were attributed to seizures. pmh: per hpi psh: hernia social: +etoh abuse fam: no premature cad, scd ros: per hpi; no nvd, fever, cough, patel, vision changes, gib, hematuria, dysuria meds: Home Medications Medication Instructions Recorded Cyclobenzaprine HCl [Flexeril -] 10 mg PO TID 09/03/17 Furosemide [Lasix] 40 mg PO DAILY 09/03/17 Gabapentin 600 mg PO TID 09/03/17 Spironolactone 25 mg PO DAILY 09/03/17 Tamsulosin HCl 0.4 mg PO DAILY 09/03/17 Zolpidem Tartrate [Ambien] 5 mg PO HS 09/03/17 levETIRAcetam [Keppra Xr -] 1,000 mg PO DAILY 09/03/17 oxyCODONE HCL [Roxicodone -] 20 mg PO Q6H 09/03/17 pe: Vital Signs Period Temp Pulse Resp BP Sys/Sarmiento Pulse Ox Last 24 Hr 97.8 F-98.2 F 76-91 19-20 126-127/79-86 98 nad no jvd rrr s1s2 no mrg cta bl nl eff aaox3 no le e/c/c abd nt nd pos bs no jaundice diaphoreis pos dp pt no carotid bruits Laboratory Last Values WBC 4.7 K/mm3 (4.0-10.0) 09/04/17 07:11 RBC 3.82 M/mm3 (4.00-5.60) L 09/04/17 07:11 Hgb 12.7 GM/dL (11.7-16.9) D 09/04/17 07:11 Hct 37.1 % (35.4-49) 09/04/17 07:11 MCV 97.1 fl (80-96) H 09/04/17 07:11 MCH 33.3 pg (25.7-33.7) 09/04/17 07:11 MCHC 34.3 g/dl (32.0-35.9) 09/04/17 07:11 RDW 14.0 % (11.9-15.9) 09/04/17 07:11 Plt Count 109 K/MM3 (134-434) L D 09/04/17 07:11 MPV 7.7 fl (7.5-11.1) 09/04/17 07:11 Neutrophils % 46.9 % (42.8-82.8) D 09/04/17 07:11 Lymphocytes % 34.7 % (8-40) D 09/04/17 07:11 Monocytes % 12.8 % (3.8-10.2) H 09/04/17 07:11 Eosinophils % 4.7 % (0-4.5) H D 09/04/17 07:11 Basophils % 0.9 % (0-2.0) 09/04/17 07:11 Nucleated RBC % 0 % (0-0) 09/04/17 07:11 PT with INR 14.00 SEC (9.7-13.0) H 09/03/17 08:49 INR 1.24 (0.82-1.09) H 09/03/17 08:49 Sodium 136 mmol/L (136-145) 09/04/17 07:11 Potassium 3.3 mmol/L (3.5-5.1) L 09/04/17 07:11 Chloride 100 mmol/L (98-107) 09/04/17 07:11 Carbon Dioxide 28 mmol/L (21-32) 09/04/17 07:11 Anion Gap 8 (8-16) 09/04/17 07:11 BUN 11 mg/dL (7-18) D 09/04/17 07:11 Creatinine 0.6 mg/dL (0.7-1.3) L 09/04/17 07:11 Creat Clearance w eGFR > 60 (>60) 09/04/17 07:11 Random Glucose 85 mg/dL (74-106) D 09/04/17 07:11 Calcium 7.8 mg/dL (8.5-10.1) L 09/04/17 07:11 Phosphorus 4.1 mg/dL (2.5-4.9) D 09/04/17 07:11 Magnesium 1.5 mg/dL (1.8-2.4) L D 09/04/17 07:11 Total Bilirubin 2.1 mg/dL (0.2-1.0) H 09/04/17 07:11 AST 73 U/L (15-37) H D 09/04/17 07:11 ALT 49 U/L (12-78) 09/04/17 07:11 Alkaline Phosphatase 161 U/L (45-117) H D 09/04/17 07:11 Total Protein 6.6 g/dl (6.4-8.2) 09/04/17 07:11 Albumin 2.9 g/dl (3.4-5.0) L 09/04/17 07:11 ecg: sr, nl intervals, no ischemic changes echo 03/2017: mild lve, nl lvef, nl rv, lae, mild mr, mild ao root dil a/p: 47 m hx seizures, etoh abuse, htn, venous insuff/le edema here with syncope. syncope: -possible seizure vs syncope -carotid us wnl, recent echo unremarkable -check orthostatics -check holter -no signs acs, chf -if holter and repeat echo benign then ok for dc from cardiac pov. consider outpt event monitor. etoh abuse: -cessation discussed -on librium here htn: -stable on aldactone venous insuff/le edema: -stable on po lasix
--- NOTE | 2017-09-04 13:55 | PN ---
Progress Note, Physician Chief Complaint: Mr Blount is without complaint. No cp, sob, n/v - Current Medication List Current Medications: Active Medications Chlordiazepoxide HCl (Librium -) 25 mg PO Q4F-TFE [facility] Stop: 09/05/17 11:01 Chlordiazepoxide HCl (Librium -) 15 mg PO [id number] [facility] Stop: 09/06/17 11:01 Chlordiazepoxide HCl (Librium -) 25 mg PO Q4H PRN PRN Reason: WITHDRAWAL(CONT SUBST) Stop: 09/06/17 15:20 Cyclobenzaprine HCl (Flexeril -) 5 mg PO TID [facility] Last Admin: 09/04/17 06:07 Dose: 5 mg Enoxaparin Sodium (Lovenox -) 40 mg SQ DAILY [facility] Last Admin: 09/04/17 10:51 Dose: 40 mg Furosemide (Lasix -) 40 mg PO DAILY [facility] Last Admin: 09/04/17 10:51 Dose: 40 mg Gabapentin (Neurontin -) 600 mg PO TID [facility] Last Admin: 09/04/17 05:06 Dose: 600 mg Levetiracetam (Keppra Xr -) 1,000 mg PO BID [facility] Last Admin: 09/04/17 10:56 Dose: 1,000 mg Ondansetron HCl (Zofran Injection) 4 mg IVPUSH Q6H PRN PRN Reason: NAUSEA Oxycodone HCl (Roxicodone -) 20 mg PO Q6H PRN PRN Reason: PAIN LEVEL 6-10 Last Admin: 09/04/17 11:04 Dose: 20 mg Pantoprazole Sodium (Protonix -) 40 mg PO DAILY [facility] Last Admin: 09/04/17 10:51 Dose: 40 mg Spironolactone (Aldactone -) 25 mg PO DAILY [facility] Last Admin: 09/04/17 10:51 Dose: 25 mg Tamsulosin HCl (Flomax -) 0.4 mg PO DAILY@0830 [facility] Last Admin: 09/04/17 08:50 Dose: 0.4 mg - Objective Vital Signs: Vital Signs Temperature 36.6 C 09/04/17 04:00 Pulse Rate 91 H 09/04/17 04:00 Respiratory Rate 20 09/04/17 04:00 Blood Pressure 126/79 09/04/17 04:00 O2 Sat by Pulse Oximetry (%) 98 09/04/17 04:00 Constitutional: Yes: Well Nourished, No Distress, Calm Cardiovascular: Yes: Regular Rate and Rhythm. No: Gallop, Murmur, Rub Respiratory: Yes: Regular, CTA Bilaterally. No: Rales, Rhonchi, Wheezes Gastrointestinal: Yes: Normal Bowel Sounds, Soft. No: Distention, Tenderness Extremities: Yes: WNL Edema: Yes Edema: LLE: Trace, RLE: Trace Labs: CBC, BMP 09/04/17 07:11 09/04/17 07:11 INR, PTT INR 1.24 (0.82-1.09) H 09/03/17 08:49 Problem List - Problems (1) Alcohol withdrawal seizure Code(s): F10.239 - ALCOHOL DEPENDENCE WITH WITHDRAWAL, UNSPECIFIED; R56.9 - UNSPECIFIED CONVULSIONS Qualifiers: Complication of substance-induced condition: with unspecified complication Qualified Code(s): F10.239 - Alcohol dependence with withdrawal, unspecified; R56.9 - Unspecified convulsions (2) Alcoholism Code(s): F10.20 - ALCOHOL DEPENDENCE, UNCOMPLICATED (3) BPH (benign prostatic hyperplasia) Code(s): N40.0 - BENIGN PROSTATIC HYPERPLASIA WITHOUT LOWER URINRY TRACT SYMP Qualifiers: Lower urinary tract symptom presence: unspecified whether lower urinary tract symptoms present Qualified Code(s): N40.0 - Benign prostatic hyperplasia without lower urinary tract symptoms (4) Hypertension Code(s): I10 - ESSENTIAL (PRIMARY) HYPERTENSION Qualifiers: Hypertension type: essential hypertension Qualified Code(s): I10 - Essential (primary) hypertension (5) Lower extremity edema Code(s): R60.0 - LOCALIZED EDEMA (6) Neuropathy Code(s): G62.9 - POLYNEUROPATHY, UNSPECIFIED (7) Alcoholic cirrhosis of liver Code(s): K70.30 - ALCOHOLIC CIRRHOSIS OF LIVER WITHOUT ASCITES Qualifiers: Ascites presence: without ascites Qualified Code(s): K70.30 - Alcoholic cirrhosis of liver without ascites (8) Chronic pain Code(s): G89.29 - OTHER CHRONIC PAIN Qualifiers: Chronic pain type: chronic pain syndrome Qualified Code(s): G89.4 - Chronic pain syndrome (9) Knee pain, bilateral Code(s): M25.561 - PAIN IN RIGHT KNEE; M25.562 - PAIN IN LEFT KNEE Assessment/Plan (1) Alcohol withdrawal seizure Assessment/Plan: -case d/w neurology -continue current antiseizure regimen -continue librium taper Code(s): F10.239 - ALCOHOL DEPENDENCE WITH WITHDRAWAL, UNSPECIFIED; R56.9 - UNSPECIFIED CONVULSIONS Qualifiers: Complication of substance-induced condition: with unspecified complication Qualified Code(s): F10.239 - Alcohol dependence with withdrawal, unspecified; R56.9 - Unspecified convulsions (2) Alcoholism Assessment/Plan: -as above Code(s): F10.20 - ALCOHOL DEPENDENCE, UNCOMPLICATED (3) BPH (benign prostatic hyperplasia) Assessment/Plan: -continue tamsulosin Code(s): N40.0 - BENIGN PROSTATIC HYPERPLASIA WITHOUT LOWER URINRY TRACT SYMP Qualifiers: Lower urinary tract symptom presence: unspecified whether lower urinary tract symptoms present Qualified Code(s): N40.0 - Benign prostatic hyperplasia without lower urinary tract symptoms (4) Hypertension Assessment/Plan: -continue lasix and aldactone -controlled Code(s): I10 - ESSENTIAL (PRIMARY) HYPERTENSION Qualifiers: Hypertension type: essential hypertension Qualified Code(s): I10 - Essential (primary) hypertension (5) Lower extremity edema Assessment/Plan: -outpatient ortho follow up -no DVT Code(s): R60.0 - LOCALIZED EDEMA (6) Neuropathy Assessment/Plan: -continue home regimen Code(s): G62.9 - POLYNEUROPATHY, UNSPECIFIED (7) Alcoholic cirrhosis of liver Assessment/Plan: -again encourage cessation of alcohol Code(s): K70.30 - ALCOHOLIC CIRRHOSIS OF LIVER WITHOUT ASCITES Qualifiers: Ascites presence: without ascites Qualified Code(s): K70.30 - Alcoholic cirrhosis of liver without ascites (8) Chronic pain Assessment/Plan: -continue home oxycodone regimen Code(s): G89.29 - OTHER CHRONIC PAIN Qualifiers: Chronic pain type: chronic pain syndrome Qualified Code(s): G89.4 - Chronic pain syndrome (9) Knee pain, bilateral Assessment/Plan: -as above Code(s): M25.561 - PAIN IN RIGHT KNEE; M25.562 - PAIN IN LEFT KNEE Dispo -plan for discharge tomorrow pending Holter monitor results
[2017-09-05] MEDS: oxyCODONE HCL 5 MG TABLET PO PRN ×4 (00:37→18:52)
[2017-09-05] MEDS: chlordiazePOXIDE HCL 25 MG CAPSULE PO SCH ×2 (05:01→10:35)
[2017-09-05] MEDS: GABAPENTIN 300 MG CAPSULE (FP) PO SCH ×3 (05:19→21:57)
[2017-09-05] MEDS: CYCLOBENZAPRINE HCL 10 MG TABLET (FP) PO SCH ×3 (05:19→21:58)
[2017-09-05] MEDS ORDERED: PT OWN MED DRAWER 7, Y5N ONE ×2 (08:32→09:25)
[2017-09-05] MEDS: TAMSULOSIN HCL 0.4 MG CAP.ER.24H (FP) PO SCH (08:33)
[2017-09-05] MEDS: SPIRONOLACTONE 25 MG TABLET (FP) PO SCH (09:26)
[2017-09-05] MEDS: PANTOPRAZOLE 40 MG TABLET (FP) PO SCH (09:26)
[2017-09-05] MEDS: FUROSEMIDE 40 MG TABLET (FP) PO SCH (09:26)
[2017-09-05] MEDS: ENOXAPARIN NA (PORCINE) 40 MG/0.4 ML DISP.SYRIN SQ SCH (09:27)
[2017-09-05] MEDS: levETIRAcetam XR 500 MG TAB PO SCH ×2 (09:27→21:58)
--- NOTE | 2017-09-05 09:34 | PN ---
Progress Note (short form) - Note Progress Note: Neurology History of Present Illness: 47 year old male admitted for possible seizure, reportedly was feeling lightheaded on morning of admission and decided to get up and get a gatorade. When he stood up he saw black spots but was able to get the gatorade and sit down. However the next thing he remembers is waking up with gatorade spilled over him. He says he knew where he was and was not confused, no incontinence, no tongue biting. Extensive conversation with him today. Reported being on Keppra 1000mg twice daily and advised him Etoh cessation would be the most effective seizure prevention. Keppra would not prevent against alcohol related and alcohol withdrawal seizures. Unclear if this event was even seizure and possibly more syncopal, nonetheless, provided counceling to patient in hopes of future prevention. Patient appreciated insight and recommendations and reports being motivated to change habits. Carotid Doppler reported and no HD stenosis noted. No seizure events overnight and neurologically stable at this time. Plans to see his orthopedic for knee discomfort. Active Medications Chlordiazepoxide HCl (Librium -) 25 mg PO [id number] [facility] Stop: 09/05/17 11:01 Last Admin: 09/05/17 05:01 Dose: 25 mg Chlordiazepoxide HCl (Librium -) 15 mg PO Q4G-HNT [facility] Stop: 09/06/17 11:01 Chlordiazepoxide HCl (Librium -) 25 mg PO Q4H PRN PRN Reason: WITHDRAWAL(CONT SUBST) Stop: 09/06/17 15:20 Cyclobenzaprine HCl (Flexeril -) 5 mg PO TID [facility] Last Admin: 09/05/17 05:19 Dose: 5 mg Enoxaparin Sodium (Lovenox -) 40 mg SQ DAILY [facility] Last Admin: 09/05/17 09:27 Dose: 40 mg Furosemide (Lasix -) 40 mg PO DAILY [facility] Last Admin: 09/05/17 09:26 Dose: 40 mg Gabapentin (Neurontin -) 600 mg PO TID [facility] Last Admin: 09/05/17 05:19 Dose: 600 mg Levetiracetam (Keppra Xr -) 1,000 mg PO BID [facility] Last Admin: 09/05/17 09:27 Dose: 1,000 mg Ondansetron HCl (Zofran Injection) 4 mg IVPUSH Q6H PRN PRN Reason: NAUSEA Oxycodone HCl (Roxicodone -) 20 mg PO Q6H PRN PRN Reason: PAIN LEVEL 6-10 Last Admin: 09/05/17 06:35 Dose: 20 mg Pantoprazole Sodium (Protonix -) 40 mg PO DAILY [facility] Last Admin: 09/05/17 09:26 Dose: 40 mg Spironolactone (Aldactone -) 25 mg PO DAILY [facility] Last Admin: 09/05/17 09:26 Dose: 25 mg Tamsulosin HCl (Flomax -) 0.4 mg PO DAILY@0830 [facility] Last Admin: 09/05/17 08:33 Dose: 0.4 mg Physical Examination Vital Signs: Vital Signs Period Temp Pulse Resp BP Sys/Sarmiento Pulse Ox Last 24 Hr 97.8 F-98.7 F 85-104 16-18 103-130/68-85 98 Constitutional: Yes: Well Nourished, No Distress, Calm Eyes: Yes: Conjunctiva Clear, EOM Intact, PERRL, jaundice noted HENT: Yes: Atraumatic, Normocephalic Cardiovascular: Yes: Regular Rate and Rhythm. No: Gallop, Murmur, Rub Respiratory: Yes: Regular, CTA Bilaterally. No: Rales, Rhonchi, Wheezes Gastrointestinal: Yes: Normal Bowel Sounds, Soft. No: Distention, Tenderness Extremities: Yes: WNL Neuro: CN intact, slight tremoulessness noted, strenght intact, sensory grossly intact, no ataxia but slight antalgic gait CBCD WBC 4.7 K/mm3 (4.0-10.0) 09/04/17 07:11 RBC 3.82 M/mm3 (4.00-5.60) L 09/04/17 07:11 Hgb 12.7 GM/dL (11.7-16.9) D 09/04/17 07:11 Hct 37.1 % (35.4-49) 09/04/17 07:11 MCV 97.1 fl (80-96) H 09/04/17 07:11 MCHC 34.3 g/dl (32.0-35.9) 09/04/17 07:11 RDW 14.0 % (11.9-15.9) 09/04/17 07:11 Plt Count 109 K/MM3 (134-434) L D 09/04/17 07:11 MPV 7.7 fl (7.5-11.1) 09/04/17 07:11 CMP Sodium 136 mmol/L (136-145) 09/04/17 07:11 Potassium 3.3 mmol/L (3.5-5.1) L 09/04/17 07:11 Chloride 100 mmol/L (98-107) 09/04/17 07:11 Carbon Dioxide 28 mmol/L (21-32) 09/04/17 07:11 Anion Gap 8 (8-16) 09/04/17 07:11 BUN 11 mg/dL (7-18) D 09/04/17 07:11 Creatinine 0.6 mg/dL (0.7-1.3) L 09/04/17 07:11 Creat Clearance w eGFR > 60 (>60) 09/04/17 07:11 Calcium 7.8 mg/dL (8.5-10.1) L 09/04/17 07:11 Total Bilirubin 2.1 mg/dL (0.2-1.0) H 09/04/17 07:11 AST 73 U/L (15-37) H D 09/04/17 07:11 ALT 49 U/L (12-78) 09/04/17 07:11 Alkaline Phosphatase 161 U/L (45-117) H D 09/04/17 07:11 Total Protein 6.6 g/dl (6.4-8.2) 09/04/17 07:11 Albumin 2.9 g/dl (3.4-5.0) L 09/04/17 07:11 Imaging Carotid noted, no HD stenosis Plan: 47 year old male admitted for possible seizure, reportedly was feeling lightheaded on morning of admission and decided to get up and get a gatorade. When he stood up he saw black spots but was able to get the gatorade and sit down. However the next thing he remembers is waking up with gatorade spilled over him. He says he knew where he was and was not confused, no incontinence, no tongue biting. Extensive conversation with him today. Reports being on Keppra 1000mg twice daily and advised him Etoh cessation would be the most effective seizure prevention. Keppra would not prevent against alcohol related and alcohol withdrawal seizures. Unclear if this event was even seizure and possibly more syncopal, nonetheless, provided counceling to patient in hopes of future prevention. Patient appreciated insight and recommendations and reports being motivated to change habits. Also discussed Carotid Doppler report and no HD stenosis noted. Conitnue medical mgmt, librium taper. Consider detox program. Continue Keppra 1000mg for now. Hydration recommended, multivitamin. Monitor BP, maintain normotensive range.
--- NOTE | 2017-09-05 12:28 | PN ---
Progress Note, Physician Chief Complaint: C/O Dizziness no syncope, orthostatic -ve - Current Medication List Current Medications: Active Medications Chlordiazepoxide HCl (Librium -) 15 mg PO [id number] [facility] Stop: 09/06/17 11:01 Chlordiazepoxide HCl (Librium -) 25 mg PO Q4H PRN PRN Reason: WITHDRAWAL(CONT SUBST) Stop: 09/06/17 15:20 Cyclobenzaprine HCl (Flexeril -) 5 mg PO TID [facility] Last Admin: 09/05/17 05:19 Dose: 5 mg Enoxaparin Sodium (Lovenox -) 40 mg SQ DAILY [facility] Last Admin: 09/05/17 09:27 Dose: 40 mg Furosemide (Lasix -) 40 mg PO DAILY [facility] Last Admin: 09/05/17 09:26 Dose: 40 mg Gabapentin (Neurontin -) 600 mg PO TID [facility] Last Admin: 09/05/17 05:19 Dose: 600 mg Levetiracetam (Keppra Xr -) 1,000 mg PO BID [facility] Last Admin: 09/05/17 09:27 Dose: 1,000 mg Ondansetron HCl (Zofran Injection) 4 mg IVPUSH Q6H PRN PRN Reason: NAUSEA Oxycodone HCl (Roxicodone -) 20 mg PO Q6H PRN PRN Reason: PAIN LEVEL 6-10 Last Admin: 09/05/17 06:35 Dose: 20 mg Pantoprazole Sodium (Protonix -) 40 mg PO DAILY [facility] Last Admin: 09/05/17 09:26 Dose: 40 mg Spironolactone (Aldactone -) 25 mg PO DAILY [facility] Last Admin: 09/05/17 09:26 Dose: 25 mg Tamsulosin HCl (Flomax -) 0.4 mg PO DAILY@0830 [facility] Last Admin: 09/05/17 08:33 Dose: 0.4 mg - Objective Vital Signs: Vital Signs Temperature 98.1 F 09/05/17 06:00 Pulse Rate 85 09/05/17 06:00 Respiratory Rate 18 09/05/17 09:00 Blood Pressure 103/68 09/05/17 06:00 O2 Sat by Pulse Oximetry (%) 93 L 09/05/17 09:00 Young man walking comfortably not in distress HEENT: Mm moist, no anemia, PERRLA, EOMI NECK: No JVd No Bruit CVS; S1S2 R no m/g/r ABD: No distention non tender Bs + EXT: B/l edema, no tremors [employer] TENDER: AOX3 non focal Labs: CBC, BMP 09/04/17 07:11 09/04/17 07:11 INR, PTT INR 1.24 (0.82-1.09) H 09/03/17 08:49 Problem List - Problems (1) Syncope Assessment/Plan: So far w/u is negative, holter poor study, normal ECHO evaluated by Cardiology and Neurology consult will Rpt Holter Code(s): R55 - SYNCOPE AND COLLAPSE (2) Alcohol withdrawal seizure Assessment/Plan: Evaluated by Neurology will cont James Neuro Check Code(s): F10.239 - ALCOHOL DEPENDENCE WITH WITHDRAWAL, UNSPECIFIED; R56.9 - UNSPECIFIED CONVULSIONS Qualifiers: Complication of substance-induced condition: with unspecified complication Qualified Code(s): F10.239 - Alcohol dependence with withdrawal, unspecified; R56.9 - Unspecified convulsions (3) Alcohol dependence with uncomplicated withdrawal Assessment/Plan: Cont Thiamine taper Librium Code(s): F10.230 - ALCOHOL DEPENDENCE WITH WITHDRAWAL, UNCOMPLICATED (4) Neuropathy Assessment/Plan: Cont Gabapentin Code(s): G62.9 - POLYNEUROPATHY, UNSPECIFIED (5) Lower extremity edema Assessment/Plan: due to chronic venous stasis Code(s): R60.0 - LOCALIZED EDEMA (6) Hypokalemia Assessment/Plan: Replete K F/U BMP Code(s): E87.6 - HYPOKALEMIA
[2017-09-05] MEDS ORDERED: POTASSIUM CHLORIDE ORAL LIQUID 20 MEQ/15 ML PO ONE (13:15)
[2017-09-05] MEDS: chlordiazePOXIDE 5 MG CAPSULE PO SCH ×2 (13:16→21:57)
[2017-09-05] MEDS ORDERED: MAGNESIUM OXIDE 400 MG TABLET (FP) PO ONE (17:00)
[2017-09-05] MEDS ORDERED: chlordiazePOXIDE 5 MG CAPSULE PO SCH (17:00)
[2017-09-05] MEDS: MAGNESIUM OXIDE 400 MG TABLET (FP) PO SCH (21:58)
[2017-09-06] MEDS: oxyCODONE HCL 5 MG TABLET PO PRN ×4 (01:14→19:01)
[2017-09-06] MEDS: chlordiazePOXIDE 5 MG CAPSULE PO SCH ×2 (05:41→13:06)
[2017-09-06] MEDS: CYCLOBENZAPRINE HCL 10 MG TABLET (FP) PO SCH ×3 (05:41→23:05)
[2017-09-06] MEDS: GABAPENTIN 300 MG CAPSULE (FP) PO SCH ×3 (06:11→23:07)
[2017-09-06 07:40] LABS: BASO % 0.4 % (0-2.0); EOS % 3.8 % (0-4.5); HEMATOCRIT 39.3 % (35.4-49); HEMOGLOBIN 13.3 GM/dL (11.7-16.9); LYMPH % 25.9 % (8-40); MCH 33.4 pg (25.7-33.7); MEAN CELL VOLUME 98.3 fl (80-96); MEAN PLT VOLUME 7.9 fl (7.5-11.1); MONO % 12.6 % (3.8-10.2); NEUT % 57.3 % (42.8-82.8); PLATELET COUNT 96 K/MM3 (134-434); RBC 3.99 M/mm3 (4.00-5.60); RDW 14.2 % (11.9-15.9); WHITE BLOOD COUNT 4.9 K/mm3 (4.0-10.0)
[2017-09-06 08:03] LABS: CHLORIDE 98 mmol/L (98-107); POTASSIUM 3.6 mmol/L (3.5-5.1); SODIUM 136 mmol/L (136-145)
[2017-09-06 08:10] LABS: ALBUMIN 2.9 g/dl (3.4-5.0); ALK PHOS 156 U/L (45-117); ANION GAP 7 (8-16); BILIRUBIN,TOTAL 1.2 mg/dL (0.2-1.0); BLOOD UREA NITROGEN 7 mg/dL (7-18); CALCIUM 8.3 mg/dL (8.5-10.1); CO2 31 mmol/L (21-32); CREATININE 0.6 mg/dL (0.7-1.3); GLUCOSE,RANDOM 86 mg/dL (74-106); MAGNESIUM 1.9 mg/dL (1.8-2.4); SGOT/AST 122 U/L (15-37); SGPT/ALT 80 U/L (12-78); TOT PROT 6.9 g/dl (6.4-8.2)
[2017-09-06] MEDS: TAMSULOSIN HCL 0.4 MG CAP.ER.24H (FP) PO SCH (08:50)
[2017-09-06] MEDS ORDERED: PT OWN MED DRAWER 7, Y5N ONE ×2 (09:52→20:53)
[2017-09-06] MEDS: MAGNESIUM OXIDE 400 MG TABLET (FP) PO SCH ×2 (10:05→23:07)
[2017-09-06] MEDS: PANTOPRAZOLE 40 MG TABLET (FP) PO SCH (10:05)
[2017-09-06] MEDS: FUROSEMIDE 40 MG TABLET (FP) PO SCH (10:05)
[2017-09-06] MEDS: ENOXAPARIN NA (PORCINE) 40 MG/0.4 ML DISP.SYRIN SQ SCH (10:05)
[2017-09-06] MEDS: SPIRONOLACTONE 25 MG TABLET (FP) PO SCH (10:05)
[2017-09-06] MEDS: levETIRAcetam XR 500 MG TAB PO SCH ×2 (10:06→23:06)
--- NOTE | 2017-09-06 15:43 | PN ---
Progress Note, Physician Chief Complaint: C/O Rt knee pain and swelling - Current Medication List Current Medications: Active Medications Chlordiazepoxide HCl (Librium -) 25 mg PO Q4H PRN PRN Reason: WITHDRAWAL(CONT SUBST) Stop: 09/06/17 15:20 Cyclobenzaprine HCl (Flexeril -) 5 mg PO TID [facility] Last Admin: 09/06/17 13:06 Dose: 5 mg Enoxaparin Sodium (Lovenox -) 40 mg SQ DAILY [facility] Last Admin: 09/06/17 10:05 Dose: 40 mg Furosemide (Lasix -) 40 mg PO DAILY [facility] Last Admin: 09/06/17 10:05 Dose: 40 mg Gabapentin (Neurontin -) 600 mg PO TID [facility] Last Admin: 09/06/17 13:07 Dose: 600 mg Levetiracetam (Keppra Xr -) 1,000 mg PO BID [facility] Last Admin: 09/06/17 10:06 Dose: 1,000 mg Magnesium Oxide (Mag-Ox -) 400 mg PO BID [facility] Last Admin: 09/06/17 10:05 Dose: 400 mg Ondansetron HCl (Zofran Injection) 4 mg IVPUSH Q6H PRN PRN Reason: NAUSEA Pantoprazole Sodium (Protonix -) 40 mg PO DAILY [facility] Last Admin: 09/06/17 10:05 Dose: 40 mg Spironolactone (Aldactone -) 25 mg PO DAILY [facility] Last Admin: 09/06/17 10:05 Dose: 25 mg Tamsulosin HCl (Flomax -) 0.4 mg PO DAILY@0830 [facility] Last Admin: 09/06/17 08:50 Dose: 0.4 mg - Objective Vital Signs: Vital Signs Temperature 98.6 F 09/06/17 15:04 Pulse Rate 94 H 09/06/17 15:04 Respiratory Rate 20 09/06/17 15:04 Blood Pressure 103/72 09/06/17 15:04 O2 Sat by Pulse Oximetry (%) 93 L 09/05/17 21:00 Young man walking comfortably not in distress HEENT: Mm moist, no anemia, PERRLA, EOMI NECK: No JVd No Bruit CVS; S1S2 R no m/g/r ABD: No distention non tender Bs + EXT: Rt Knee swelling and mild tenderness B/l edema, no tremors 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 non focal Labs: CBC, BMP 09/06/17 07:00 09/06/17 07:00 INR, PTT INR 1.24 (0.82-1.09) H 09/03/17 08:49 Problem List - Problems (1) Syncope Assessment/Plan: So far w/u is negative, holter poor study, normal ECHO evaluated by Cardiology and Neurology consult will Rpt Holter Code(s): R55 - SYNCOPE AND COLLAPSE (2) Alcohol withdrawal seizure Assessment/Plan: Evaluated by Neurology will cont Keppra , Neuro Check Code(s): F10.239 - ALCOHOL DEPENDENCE WITH WITHDRAWAL, UNSPECIFIED; R56.9 - UNSPECIFIED CONVULSIONS Qualifiers: Complication of substance-induced condition: with unspecified complication Qualified Code(s): F10.239 - Alcohol dependence with withdrawal, unspecified; R56.9 - Unspecified convulsions (3) Alcohol dependence with uncomplicated withdrawal Assessment/Plan: Cont Thiamine taper Librium Code(s): F10.230 - ALCOHOL DEPENDENCE WITH WITHDRAWAL, UNCOMPLICATED (4) Neuropathy Assessment/Plan: Cont Gabapentin Code(s): G62.9 - POLYNEUROPATHY, UNSPECIFIED (5) Lower extremity edema Assessment/Plan: due to chronic venous stasis Code(s): R60.0 - LOCALIZED EDEMA (6) Hypokalemia Assessment/Plan: Replete K F/U BMP Code(s): E87.6 - HYPOKALEMIA (7) Hypomagnesemia Assessment/Plan: repleted Code(s): E83.42 - HYPOMAGNESEMIA (8) Knee pain, right Assessment/Plan: tab tylenol prn cold compresses Code(s): M25.561 - PAIN IN RIGHT KNEE Qualifiers: Chronicity: chronic Qualified Code(s): M25.561 - Pain in right knee; G89.29 - Other chronic pain
[2017-09-07] MEDS: oxyCODONE HCL 5 MG TABLET PO PRN ×2 (00:48→08:52)
[2017-09-07] MEDS: CYCLOBENZAPRINE HCL 10 MG TABLET (FP) PO SCH (05:55)
[2017-09-07] MEDS: GABAPENTIN 300 MG CAPSULE (FP) PO SCH (05:55)
[2017-09-07 08:07] LABS: BASO % 0.5 % (0-2.0); EOS % 4.1 % (0-4.5); HEMOGLOBIN 12.7 GM/dL (11.7-16.9); MCH 33.8 pg (25.7-33.7); MCHC 34.3 g/dl (32.0-35.9); MEAN CELL VOLUME 98.6 fl (80-96); MEAN PLT VOLUME 8.2 fl (7.5-11.1); MONO % 19.8 % (3.8-10.2); NEUT % 48.6 % (42.8-82.8); PLATELET COUNT 95 K/MM3 (134-434); RBC 3.76 M/mm3 (4.00-5.60); RDW 14.3 % (11.9-15.9)
[2017-09-07] MEDS: TAMSULOSIN HCL 0.4 MG CAP.ER.24H (FP) PO SCH (08:52)
[2017-09-07 08:54] LABS: ANION GAP 8 (8-16); BLOOD UREA NITROGEN 8 mg/dL (7-18); CALCIUM 8.3 mg/dL (8.5-10.1); CHLORIDE 97 mmol/L (98-107); CO2 30 mmol/L (21-32); GLUCOSE,RANDOM 115 mg/dL (74-106); POTASSIUM 3.3 mmol/L (3.5-5.1); SODIUM 135 mmol/L (136-145)
[2017-09-07 08:56] LABS: CREATININE 0.6 mg/dL (0.7-1.3)
--- NOTE | 2017-09-07 10:09 | HOL ---
Hook-up date: 2017-09-05 12:48:00 Duration: 24:00:00 Test Indications: SYNCOPE Medications: 035735 QRS complexes 61 Ventricular ectopics which represent <1 % of total QRS comp. 30 Supraventricular ectopics which represent <1 % of total QRS comp. * Paced QRS complexs which represent % of total QRS comp. * % of Time Classified as Noise VENTRICULAR ECTOPY 61 Isolated 0 Bigeminal Cycles 0 Couplets 0 Runs 0 Beats in Runs * Beats LONGEST at * BPM at :: -- * Beats FASTEST at * BPM at :: -- SUPRAVENTRICULAR ECTOPY 30 Isolated 0 Couplets 0 Runs 0 Beats in Runs * Beats LONGEST at * BPM at :: -- * Beats FASTEST at * BPM at :: -- HEART RATES 78 MIN at 05:01:20 2017-09-06 98 AVG 120 MAX at 03:37:22 2017-09-06 LONGEST RR 0.824 secs at 05:12:55 2017-09-06 SCANNED BY: FRANCESCA 09/06/17 Normal sinus rhythm occasional apc's and VPC's Confirmed by KIEL DAMON, CUATE ([id number]) on 09/07/2017 10:09:00 AM Referred By: Osman GALINDO Overread By: CUATE DYSON MD
[2017-09-07] MEDS ORDERED: PT OWN MED DRAWER 7, Y5N ONE (10:14)
[2017-09-07] MEDS: MAGNESIUM OXIDE 400 MG TABLET (FP) PO SCH (10:28)
[2017-09-07] MEDS: FUROSEMIDE 40 MG TABLET (FP) PO SCH (10:28)
[2017-09-07] MEDS: PANTOPRAZOLE 40 MG TABLET (FP) PO SCH (10:28)
[2017-09-07] MEDS: ENOXAPARIN NA (PORCINE) 40 MG/0.4 ML DISP.SYRIN SQ SCH (10:28)
[2017-09-07] MEDS: SPIRONOLACTONE 25 MG TABLET (FP) PO SCH (10:29)
[2017-09-07] MEDS: levETIRAcetam XR 500 MG TAB PO SCH (10:29)
[2017-09-07] MEDS ORDERED: POTASSIUM CHLORIDE ORAL LIQUID 20 MEQ/15 ML PO ONE ×2 (11:10→11:30)
--- NOTE | 2017-09-07 11:21 | DS ---
Physical Examination Vital Signs: Vital Signs Temperature 98 F 09/07/17 06:55 Pulse Rate 94 H 09/06/17 15:04 Respiratory Rate 20 09/06/17 21:00 Blood Pressure 103/72 09/06/17 15:04 O2 Sat by Pulse Oximetry (%) 98 09/06/17 21:00 Patient feels comfortable hemodynamically stable off Librium protocol no signs of DTs HEENT: Mm moist, nmild anemia, PERRLA, EOMI NECK; No JVd No Bruit CHEST: CTA B/L CVS: S!S2 R no m/g/r ABD: No distention non tender EXT: Rt Knee swelling at base line, Pulses +, Venous stasis changes [employer] TECH:AOx3 non focal no tremors no hallucinations or Delusions. Labs: CBC, BMP 09/07/17 06:00 09/07/17 06:00 Discharge Summary Reason For Visit: ALCOHOL RELATED SEIZURE Current Active Problems Hypokalemia (Acute) Hypomagnesemia (Acute) Knee pain, right (Acute) Syncope (Acute) Alcohol withdrawal seizure (Chronic) Hospital Course: 47 year old male who comes in with concerns about a possible seizure. He says that he was feeling lightheaded early this morning and decided to get up and , patient has electrolyte imbalance K and Magnesium repleted, completed ETOH withdrawal protocol,evaluated by Neurology nad Cardiology consult, recent ECHO normal EF no wall Gross abnormality, 24 hrs Holter < 1% PVCs and < 1% APCs, today K 3.3 repleted will provide eductaion for high K diet and KCL PO 20 mEq lidia. Rt knee chronic OA evaluated by ortho consult recommended F/U with his orthopedics, patient has med suply at home , Mag Oxide and Kcl prescription provided. No seizures during hospitalization. Condition: Fair - Instructions Referrals: Eris Nelson MD [Staff Physician] - 2 Weeks Neil Rush MD [Primary Care Provider] - 1 Week - Home Medications Comprehensive Discharge Medication List: Ambulatory Orders Cyclobenzaprine HCl [Flexeril -] 10 mg PO TID 09/03/17 Furosemide [Lasix] 40 mg PO DAILY 09/03/17 Gabapentin 600 mg PO TID 09/03/17 Spironolactone 25 mg PO DAILY 09/03/17 Tamsulosin HCl 0.4 mg PO DAILY 09/03/17 Zolpidem Tartrate [Ambien] 5 mg PO HS 09/03/17 oxyCODONE HCL [Roxicodone -] 20 mg PO Q6H 09/03/17 Magnesium Oxide [Mag-Ox -] 400 mg PO BID 30 Days #60 tablet 09/06/17 levETIRAcetam [Keppra Xr -] 1,000 mg PO BID 30 Days #60 tab 09/06/17 Kcl 20 mEq Daily for 7 days
[2017-09-07 12:00] VITALS: BP 107/66; PULSE 83; TEMP 98.6
--- NOTE | 2017-09-16 13:27 | EKG ---
Test Reason : Blood Pressure : / mmHG Vent. Rate : 101 BPM Atrial Rate : 101 BPM P-R Int : 150 ms QRS Dur : 098 ms QT Int : 372 ms P-R-T Axes : 030 023 043 degrees QTc Int : 482 ms SINUS TACHYCARDIA OTHERWISE NORMAL ECG WHEN COMPARED WITH ECG OF 29-JUN-2017 17:04, NO SIGNIFICANT CHANGE WAS FOUND Confirmed by MD KAPOOR PENG ([id number]) on 09/16/2017 1:27:29 PM Referred By: Confirmed By:LILA KAPOOR MD
== END 2017-09-07 11:53 | disposition home or self-care (01) | DRG 775 ==
LOC: JER 08:20 → JERBED 11:56 → J8W 09-04 03:36
PROVIDERS: ADMIT Internal Medicine; ATTEND Internal Medicine
DX: F10.239 Alcohol dependence with withdrawal, unspecified (principal); R56.9 Unspecified convulsions; N40.0 Benign prostatic hyperplasia without lower urinary tract symptoms; I10 Essential (primary) hypertension; R60.0 Localized edema; G62.9 Polyneuropathy, unspecified; K70.30 Alcoholic cirrhosis of liver without ascites; G89.4 Chronic pain syndrome; M25.561 Pain in right knee; M25.562 Pain in left knee; E87.6 Hypokalemia; E83.42 Hypomagnesemia; R55 Syncope and collapse; I87.2 Venous insufficiency (chronic) (peripheral); E66.01 Morbid (severe) obesity due to excess calories; Z68.36 Body mass index [BMI] 36.0-36.9, adult; K70.0 Alcoholic fatty liver
CPT/HCPCS: 36415; 73560-TC-RT-FY; 80048; 80053; 83735; 84100; 85025; 85610; 93005; 93010; 93225; 93226; 93306-TC; 93880-TC; 93970-TC; 99284-25; J7030

== ENCOUNTER 2017-11-16 15:56 | Emergency (ER) | payer OTHER ==
[2017-11-16 16:03] VITALS: BP 127/72; PULSE 109; TEMP 98.7; BMI 34.5
[2017-11-16] MEDS ORDERED: PIPERACILLIN/TAZOB 3.375 GM 3.375 GM in DEXTROSE 5%-WATER - 50 ML IVPB ONE (18:11)
[2017-11-16 18:12] LABS: BASO % 0.5 % (0-2.0); EOS % 2.3 % (0-4.5); HEMATOCRIT 43.6 % (35.4-49); LYMPH % 16.8 % (8-40); MCH 33.8 pg (25.7-33.7); MCHC 34.3 g/dl (32.0-35.9); MEAN CELL VOLUME 98.5 fl (80-96); MEAN PLT VOLUME 7.2 fl (7.5-11.1); MONO % 14.5 % (3.8-10.2); NEUT % 65.9 % (42.8-82.8); PLATELET COUNT 137 K/MM3 (134-434); RBC 4.43 M/mm3 (4.00-5.60); RDW 14.2 % (11.9-15.9); WHITE BLOOD COUNT 5.5 K/mm3 (4.0-10.0)
[2017-11-16] MEDS ORDERED: PIPERACILLIN/TAZOB 3.375 GM 3.375 GM/50 ML BAG IVPB ONE (18:23)
[2017-11-16 18:51] LABS: ANION GAP 7 (8-16); BILIRUBIN,TOTAL 1.2 mg/dL (0.2-1.0); BLOOD UREA NITROGEN 4 mg/dL (7-18); CALCIUM 8.6 mg/dL (8.5-10.1); CHLORIDE 100 mmol/L (98-107); CO2 31 mmol/L (21-32); CREATININE 0.6 mg/dL (0.7-1.3); GLUCOSE,RANDOM 103 mg/dL (74-106); SGOT/AST 76 U/L (15-37); SGPT/ALT 49 U/L (12-78); SODIUM 138 mmol/L (136-145); TOT PROT 7.2 g/dl (6.4-8.2)
--- NOTE | 2017-11-16 18:51 | PDOC ---
History of Present Illness - General History Source: Patient Exam Limitations: No Limitations - History of Present Illness Initial Comments: 11/16/17 18:51 The patient is a 47 year old male, with a significant past medical history of BPH, fatty liver, cirrhosis, anxiety, seizures and chronic low back pain ( currently takes percocet), who presents to the emergency department with 4 days of increased swelling to his right knee s/p medial meniscal repair on 11/05/17. He states the swelling is painful. He reports the pain is constant with radiation to his lower right leg. He states he called his orthopedist who informed the patient his symptoms are normal. The patient denies chest pain, shortness of breath, headache and dizziness. The patient denies fever, chills, nausea, vomit, diarrhea and constipation.The patient denies dysuria, frequency, urgency and hematuria. Allergies: NKDA Past surgical history: lapband, left shoulder arthroscopy, and right knee medial meniscus repair Social history: ETOH dependence (last detox June 2017) <Zeinab Vigil - Last Filed: 11/16/17 19:29> <Kera Sung - Last Filed: 11/16/17 19:38> - General Chief Complaint: Edema Stated Complaint: SEIZURES Time Seen by Provider: 11/16/17 16:14 Past History <Zeinab Vigil - Last Filed: 11/16/17 19:29> - Past Medical History Anemia: No Asthma: No Cancer: No Cardiac Disorders: No CVA: No COPD: No CHF: No DVT: No Dementia: No Diabetes: No GI Disorders: No Disorders: Yes (BPH) HTN: No Hypercholesterolemia: No Kidney Stones: No Liver Disease: Yes (fatty liver, CIRRHOSIS) Psychiatric Problems: Yes (ANXIETY) Seizures: Yes (DOES NOT RECALL LAST SZ; PRESCRIBED KEPPRA BUT DOESN'T RECALL LAST USED) Thyroid Disease: No - Surgical History Abdominal Surgery: Yes (LAP BAND 2009/umbilical hernia repaired 2013) Appendectomy: No Cardiac Surgery: No Cholecystectomy: No GI Surgery: Yes (hernia repair) Lung Surgery: No Neurologic Surgery: No Orthopedic Surgery: Yes (ARTHROSCOPY LEFT SHOULDER 2011) - Reproductive History Testicular Surgery: No - Immunization History Immunization Up to Date: Yes - Suicide/Smoking/Psychosocial Hx Smoking Status: No Smoking History: Never smoked Have you smoked in the past 12 months: No Number of Cigarettes Smoked Daily: 0 Cigars Per Day: 0 'Breaking Loose' booklet given: 01/23/17 Hx Alcohol Use: Yes Drug/Substance Use Hx: No Substance Use Type: Alcohol Hx Substance Use Treatment: Yes ([facility] 06/02/17) <Kera Sung - Last Filed: 11/16/17 19:38> - Past Medical History Allergies/Adverse Reactions: Allergies Allergy/AdvReac Type Severity Reaction Status Date / Time No Known Allergies Allergy Verified 11/16/17 16:03 Home Medications: Ambulatory Orders Cyclobenzaprine HCl [Flexeril -] 10 mg PO TID 09/03/17 Furosemide [Lasix] 40 mg PO DAILY 09/03/17 Gabapentin 600 mg PO TID 09/03/17 Spironolactone 25 mg PO DAILY 09/03/17 Tamsulosin HCl 0.4 mg PO DAILY 09/03/17 Zolpidem Tartrate [Ambien] 5 mg PO HS 09/03/17 oxyCODONE HCL [Roxicodone -] 20 mg PO Q6H 09/03/17 Chlordiazepoxide [Librium -] 25 mg PO BID 5 Days #10 capsule MDD 2 09/06/17 Magnesium Oxide [Mag-Ox -] 400 mg PO BID 30 Days #60 tablet 09/06/17 levETIRAcetam [Keppra Xr -] 1,000 mg PO BID 30 Days #60 tab 09/06/17 Amoxicillin/Potassium Clav [Augmentin 875-125 Tablet] 1 each PO BID #20 tablet 11/16/17 Review of Systems - Review of Systems Able to Perform ROS?: Yes Comments:: 11/16/17 18:51 CONSTITUTIONAL: Absent: fever, no chills, no fatigue EYES: Absent: visual changes ENT: Absent: ear pain, no sore throat CARDIOVASCULAR: Absent: chest pain, no palpitations RESPIRATORY: Absent: cough, no SOB GI: Absent: abdominal pain, no nausea, no vomiting, no constipation, no diarrhea GENITOURINARY: Absent: dysuria, no frequency, no hematuria MUSCULOSKELETAL: (+) Right knee pain and swelling. Absent: back pain, no myalgia SKIN: Absent: rash NEURO: Absent: headache <Zeinab Vigil - Last Filed: 11/16/17 19:29> *Physical Exam - Vital Signs Last Vital Signs Temp Pulse Resp BP Pulse Ox 98.7 F 109 H 20 127/72 95 11/16/17 15:59 11/16/17 15:59 11/16/17 15:59 11/16/17 15:59 11/16/17 15:59 - Physical Exam Comments: 11/16/17 18:51 GENERAL: Well-appearing, well-nourished. No apparent distress. HEENT: Normocephalic, atraumatic. PERRL, EOM intact. CARDIOVASCULAR: Normal S1, S2. Regular rate and rhythm. PULMONARY: Clear to auscultation bilaterally. ABDOMEN: Protuberant. Soft, non-distended, non-tender. EXTREMITIES: (+) right knee is edematous with slight surrounding erythema to the two intact incisions s/p meniscus repair 10 days ago. Non-pitting pedal edema. Tender to the right knee, limited ROM of the right knee secondary to edema. No streaking. SKIN: Warm, dry. No rash NEUROLOGICAL: No focal neurological deficits. <Zeinab Vigil - Last Filed: 11/16/17 19:29> - Vital Signs Last Vital Signs Temp Pulse Resp BP Pulse Ox 98.7 F 109 H 20 127/72 95 11/16/17 15:59 11/16/17 15:59 11/16/17 15:59 11/16/17 15:59 11/16/17 15:59 <Kera Sung - Last Filed: 11/16/17 19:38> ED Treatment Course - LABORATORY CBC & Chemistry Diagram: 11/16/17 17:55 11/16/17 17:55 - ADDITIONAL ORDERS Additional order review: 11/16/17 17:55 RBC 4.43 MCV 98.5 H MCHC 34.3 RDW 14.2 MPV 7.2 L D Neutrophils % 65.9 D Lymphocytes % 16.8 D Monocytes % 14.5 H Eosinophils % 2.3 Basophils % 0.5 - Medications Given in the ED: ED Medications Discontinued Medications Generic Name Dose Route Start Last Admin Trade Name Freq PRN Reason Stop Dose Admin Piperacillin Sod/Tazobactam 50 mls @ 100 mls/hr 11/16/17 18:11 11/16/17 18:43 Sod 3.375 gm/ Dextrose IVPB 11/16/17 18:40 100 mls/hr ONCE ONE Administration Protocol <Zeinab Vigil - Last Filed: 11/16/17 19:29> - LABORATORY CBC & Chemistry Diagram: 11/16/17 17:55 11/16/17 17:55 - ADDITIONAL ORDERS Additional order review: 11/16/17 17:55 RBC 4.43 MCV 98.5 H MCHC 34.3 RDW 14.2 MPV 7.2 L D Neutrophils % 65.9 D Lymphocytes % 16.8 D Monocytes % 14.5 H Eosinophils % 2.3 Basophils % 0.5 - RADIOLOGY Radiology Studies Ordered: Category Date Time Status DUPLEX VASCUL US-1 LEG [US] Stat Ultrasound 11/16/17 17:44 Taken - Medications Given in the ED: ED Medications Discontinued Medications Generic Name Dose Route Start Last Admin Trade Name Freq PRN Reason Stop Dose Admin Piperacillin Sod/Tazobactam 50 mls @ 100 mls/hr 11/16/17 18:11 11/16/17 18:43 Sod 3.375 gm/ Dextrose IVPB 11/16/17 18:40 100 mls/hr ONCE ONE Administration Protocol <PinedaKera Mckenzie - Last Filed: 11/16/17 19:38> Medical Decision Making - Medical Decision Making 11/16/17 19:23 Dr. Ahmet Coelho, Orthopedic Surgeon ([phone]), was paged at this time requesting a call back for doctor to doctor consult. 11/16/17 19:29 RAVEN Pimentel, covering for , returned the call and the patient's case was discussed. RAVEN Pimentel states the patient can be seen in the orthopedist office tomorrow between 8am and 11am. <Zeinab Vigil - Last Filed: 11/16/17 19:29> - Medical Decision Making 11/16/17 19:21 Duplex Doppler of the right leg shows normal compression, augmentation and spontaneous color Doppler flow from the right calf. The right common femoral vein. No evidence of a right lower DVT 11/16/17 19:25 CBC does not show any leukocytosis, white count is only 5.5. He does not have any fever. Right lower extremity does not show any streaking or obvious cellulitis. There is some erythema around the 2 sutures that are intact. The patient his orthopedist now. Teja Tom at [facility] <Kera Sung - Last Filed: 11/16/17 19:38> *DC/Admit/Observation/Transfer - Attestations Scribe Attestion: 11/16/17 18:52 Documentation prepared by Zeinab Vigil, acting as medical physics professor for Kera Sung MD <Zeinab Vigil - Last Filed: 11/16/17 19:29> <Kera Sung - Last Filed: 11/16/17 19:38> Diagnosis at time of Disposition: Swelling of knee joint, right, Right leg swelling - Discharge Dispostion Disposition: HOME Condition at time of disposition: Stable - Prescriptions Prescriptions: Amoxicillin/Potassium Clav [Augmentin 875-125 Tablet] 1 each PO BID #20 tablet - Referrals Referrals: Neil Rush MD [Primary Care Provider] - - Patient Instructions Printed Discharge Instructions: DI for Knee Pain Additional Instructions: please see your orthopedist tomorrow morning - Post Discharge Activity
[2017-11-16 18:52] LABS: ALK PHOS 187 U/L (45-117)
== END 2017-11-16 19:57 | disposition home or self-care (01) ==
LOC: JER 15:56
DX: M25.461 Effusion, right knee (principal); M79.89 Other specified soft tissue disorders; K74.60 Unspecified cirrhosis of liver; N40.0 Benign prostatic hyperplasia without lower urinary tract symptoms; F41.9 Anxiety disorder, unspecified
CPT/HCPCS: 36415; 80053; 85025; 87040; 93971-TC; 99284-25

== ENCOUNTER 2018-02-18 08:40 | Inpatient (IN) | payer OTHER ==
[2018-02-18 10:04] VITALS: BMI 32.3
--- NOTE | 2018-02-18 12:20 | HP ---
CIWA Score Nausea/Vomitin Muscle Tremors: 2 Anxiety: 2 Agitation: 2 Paroxysmal Sweats: 1-Minimal Palms Moist Orientation: 0-Oriented Tacttile Disturbances: 1-Very Mild Itch/Numbness Auditory Disturbances: 1-Very Mild Visual Disturbances: 1-Very Mild Sensitivity Headache: 2-Mild CIWA-Ar Total Score: 14 - Admission Criteria OASAS Guidelines: Admission for Medically Managed Detox: Requires at least one of the followin. CIWA greater than 12 2. Seizures within the past 24 hours 3. Delirium tremens within the past 24 hours 4. Hallucinations within the past 24 hours 5. Acute intervention needed for co occurring medical disorder 6. Acute intervention needed for co occurring psychiatric disorder 7. Severe withdrawal that cannot be handled at a lower level of care (continued vomiting, continued diarrhea, abnormal vital signs) requiring intravenous medication and/or fluids 8. Patient presents the following: CIWA greater than 12, Seizures, delirium tremens or hallucinations in the past 12 hours Admission Criteria Met: Admission criteria met Admission ROS S - HPI Chief Complaint: i need help to stop drinking alcohol,cocaine,marijuana, Allergies/Adverse Reactions: Allergies Allergy/AdvReac Type Severity Reaction Status Date / Time No Known Allergies Allergy Verified 02/18/18 10:38 History of Present Illness: this 47 years old male with alcohol,cocaine,marijuana dependence,seeking detox, withdrawal symptom,lst detox 06/29/17 to 07/04/17 seizure last 09/29 syncope alcohol related neuropathy low back pain on pain management nicotine dependence multiple admissions in detox but keep relapsing longest period of sobriety 8 moths anxiety,depression,insomnia Exam Limitations: No Limitations - Ebola screening Have you traveled outside of the country in the last 21 days: No Have you had contact with anyone from an Ebola affected area: No Have you been sick,other than usual withdrawal symptoms: No Do you have a fever: No - Review of Systems Constitutional: Loss of Appetite, Malaise, Night Sweats, Changes in sleep, Weakness, Unintentional Wgt. Loss EENT: reports: Tearing, Nose Congestion Respiratory: reports: No Symptoms reported Cardiac: reports: Palpitations GI: reports: Nausea, Poor Appetite, Vomiting, Abdominal cramping : reports: No Symptoms Reported Musculoskeletal: reports: Back Pain, Joint Pain, Muscle Pain, Joint Stiffness Integumentary: reports: Dryness Neuro: reports: Headache, Tremors Endocrine: reports: No Symptoms Reported Hematology: reports: No Symptoms Reported Psychiatric: reports: No Sypmtoms Reported, Judgement Intact, Mood/Affect Appropiate, Orientated x3, Anxious, Depressed (insomnia) Patient History - Patient Medical History Hx Anemia: No Hx Asthma: No Hx Chronic Obstructive Pulmonary Disease (COPD): No Hx Cancer: No Hx Cardiac Disorders: No Hx Congestive Heart Failure: No Hx Hypertension: Yes (ON LASIX) Hx Hypercholesterolemia: No Hx Pacemaker: No HX Cerebrovascular Accident: No Hx Seizures: Yes (LAST SEIZURE WAS JULY 2017) Hx Dementia: No Hx Diabetes: No Hx Gastrointestinal Disorders: No Hx Liver Disease: Yes (fatty liver, CIRRHOSIS) Hx Genitourinary Disorders: Yes (BPH) Hx Sexually Transmitted Disorders: No Hx Renal Disease (ESRD): No Hx Thyroid Disease: No Hx Human Immunodeficiency Virus (HIV): No (LAST 06/01 NEGATIVE) Hx Hepatitis C: No Hx Depression: No Hx Suicide Attempt: No Hx Bipolar Disorder: Yes Hx Schizophrenia: No Other Medical History: no suicidal,no depression, - Patient Surgical History Past Surgical History: Yes Hx Neurologic Surgery: No Hx Cataract Extraction: No Hx Cardiac Surgery: No Hx Lung Surgery: No Hx Breast Surgery: No Hx Breast Biopsy: No Hx Abdominal Surgery: Yes (LAP BAND 2009/umbilical hernia repaired 2013) Hx Appendectomy: No Hx Cholecystectomy: No Hx Genitourinary Surgery: No Hx Section: No Hx Orthopedic Surgery: Yes (ARTHROSCOPY LEFT SHOULDER 2011) Anesthesia Reaction: No - PPD History Previous Implant?: Yes Documented Results: Negative w/proof Implanted On Prior [facility] Admission?: Yes Date: 06/01/16 Results: NEGATIVE PPD to be Administered?: Yes - Smoking Cessation Smoking history: Current some day smoker Have you smoked in the past 12 months: Yes Aproximately how many cigarettes per day: 1 Cigars Per Day: 0 Hx Chewing Tobacco Use: No Initiated information on smoking cessation: Yes 'Breaking Loose' booklet given: 02/18/18 - Substance & Tx. History Hx Alcohol Use: Yes Hx Substance Use: No Substance Use Type: Alcohol, Cocaine, Marijuana Hx Substance Use Treatment: Yes ([facility] 06/29/17 to 07/04/17) - Substances Abused Alcohol Route: Oral Frequency: Daily Amount used: 12 CANS OF BEER (12 OUNCES) Age of first use: 12 Date of Last Use: 02/18/18 Cocaine Route: Smoking Frequency: 1-3 times last 30 days Amount used: did not spend money Age of first use: 19 Date of Last Use: 02/17/18 Marijuana/Hashish Route: Smoking Frequency: 1-3 times last 30 days Amount used: did not spend money Age of first use: 19 Date of Last Use: 02/17/18 Family Disease History - Family Disease History Family Disease History: Other: Father (Alive: 65 alcoholic), Mother (Alive: 62: healthy), Brother (Alive: Healthy), Sister (Alive: Healthy), Son (Healthy), Daughter (Healthy) Admission Physical Exam BHS - Vital Signs Vital Signs: Vital Signs - 24 hr 02/18/18 10:00 Temperature 98.7 F Pulse Rate 133 H Respiratory 20 Rate Blood Pressure 108/82 - Physical General Appearance: Yes: Moderate Distress, Tremorous, Irritable, Sweating, Anxious HEENTM: Yes: Normal ENT Inspection, LADY, Pharynx Normal Respiratory: Yes: Lungs Clear, Normal Breath Sounds, No Respiratory Distress Neck: Yes: Within Normal Limits, Supple, Trachea in good position Breast: Yes: Within Normal Limits Cardiology: Yes: Tachycardia Abdominal: Yes: Within Normal Limits, Normal Bowel Sounds, Non Tender, Flat, Soft, Surgical Scar Genitourinary: Yes: Within Normal Limits Back: Yes: Muscle Spasm Musculoskeletal: Yes: Back pain, Muscle Pain Extremities: Yes: Within Normal Limits, Normal Range of Motion, Tremors Neurological: Yes: directory clerk II-XII NML intact, Fully Oriented, Alert, Motor Strength 5/5 Integumentary: Yes: Dry Lymphatic: Yes: Within Normal Limits - Diagnostic (1) Alcohol dependence with uncomplicated intoxication Current Visit: Yes Status: Acute (2) Cocaine dependence Current Visit: Yes Status: Acute (3) Cannabis dependence Current Visit: Yes Status: Acute (4) Low back pain Current Visit: Yes Status: Acute (5) Seizure disorder Current Visit: No Status: Acute (6) Syncope Current Visit: No Status: Acute (7) BPH (benign prostatic hyperplasia) Current Visit: No Status: Chronic Qualifiers: Lower urinary tract symptom presence: unspecified whether lower urinary tract symptoms present Qualified Code(s): N40.0 - Benign prostatic hyperplasia without lower urinary tract symptoms (8) Neuropathy Current Visit: No Status: Chronic Comment: isabella torres (9) Bipolar disorder Current Visit: Yes Status: Acute Cleared for Admission [facility] - Detox or Rehab [facility] Level of Care: Medically Managed Detox Regimen/Protocol: Librium [facility] Breath Alcohol Content Breath Alcohol Content: 0.130 Urine Drug Screen - Results Drug Screen Negative: No Urine Drug Screen Results: THC-Marijuana, KATHI-Cocaine
[2018-02-18] MEDS ORDERED: guaiFENesin/D-METHORPHAN HB 10 ML UNIT-DOSE CUPS PO PRN (12:34)
[2018-02-18] MEDS ORDERED: MENTHOL/PHENOL 1 EACH UD MM PRN (12:34)
[2018-02-18] MEDS ORDERED: MAGNESIUM CITRATE 300 ML BOTTLE PO PRN (12:34)
[2018-02-18] MEDS ORDERED: MAG HYDROX/AL HYDROX/SIMETH 30 ML UNIT-DOSE CUP PO PRN (12:34)
[2018-02-18] MEDS ORDERED: ACETAMINOPHEN 325 MG TABLET (FP) PO PRN (12:34)
[2018-02-18] MEDS ORDERED: MAGNESIUM HYDROX 2400MG/30ML ORAL SUSPENSION 30 ML CUP PO PRN (12:34)
[2018-02-18] MEDS ORDERED: LOPERAMIDE HCL 2 MG CAPSULE PO PRN (12:34)
[2018-02-18] MEDS ORDERED: P-EPHED 60MG/TRIPROLIDI 2.5MG TABLET PO PRN (12:34)
[2018-02-18] MEDS: chlordiazePOXIDE HCL 25 MG CAPSULE PO PRN ×2 (13:55→19:46)
--- NOTE | 2018-02-18 14:07 | CONSULT ---
[facility] Psychiatric Consult - Data Date of interview: 02/18/18 Admission source: [facility] Identifying data: Readmission to [facility] for this 47 y/o male seeking detoxification treatment on for alcohol, cocaine, cannabis and opioid dependence. Patient is , a father of two, domiciled, currently unemployed and supported by relatives. Substance Abuse History: Confirmed by patient in this interview. Details in current [facility] report : Smoking history: Current some day smoker. Have you smoked in the past 12 months: Yes. Aproximately how many cigarettes per day: 1. Cigars Per Day: 0. Hx Chewing Tobacco Use: No. Initiated information on smoking cessation: Yes. 'Breaking Loose' booklet given: 02/18/18. - Substance & Tx. History. Hx Alcohol Use: Yes. Hx Substance Use: No. Substance Use Type : Alcohol, Cocaine, Marijuana. Hx Substance Use Treatment: Yes ([facility] 06/29/17 to 07/04/17). - Substances Abused. Alcohol. Route: Oral. Frequency: Daily. Amount used: 12 CANS OF BEER (12 OUNCES). Age of first use: 12. Date of Last Use: 02/18/18. Cocaine. Route: Smoking. Frequency: 1-3 times last 30 days. Amount used: did not spend money. Age of first use: 19. Date of Last Use: 02/17/18. Marijuana/Hashish. Route: Smoking. Frequency: 1-3 times last 30 days. Amount used: did not spend money. Age of first use: 19. Date of Last Use: 02/17/18 Medical History: Hypertension, obesity, benign prostatic hyperplasia, neuropathy , history of prostatitis, cirrhosis of liver, history of pylonephritis and chronic lumbar pain. History of arthroscopy on left shoulder (2009), exploratory laparotomy (2011) and umbilical herniorraphy (2013). Psychiatric History: Patient denies history of pychiatric hospitalizations or suicide attempts. Physical/Sexual Abuse/Trauma History: No reported history of abuse. Additional Comment: Toxicology not available. Mental Status Exam - Mental Status Exam Alert and Oriented to: Time, Place, Person Cognitive Function: Good Patient Appearance: Well Groomed (obese tattoos all over the upper torso + extremities) Mood: Nervous, Apprehensive, Hopeful Affect: Mood Congruent Patient Behavior: Appropriate, Cooperative Speech Pattern: Clear Voice Loudness: Normal Thought Process: Goal Oriented Thought Disorder: Not Present Hallucinations: Denies Suicidal Ideation: Denies Homicidal Ideation: Denies Insight/Judgement: Poor Sleep: Poorly, Difficulty falling asleep Appetite: Good Muscle strength/Tone: Normal Gait/Station: Normal Psychiatric Findings - Problem List ([place] 1, 2,3) (1) Alcohol dependence with uncomplicated intoxication Current Visit: Yes Status: Acute (2) Cannabis dependence Current Visit: Yes Status: Acute (3) Cocaine dependence Current Visit: Yes Status: Acute (4) Nicotine dependence Current Visit: Yes Status: Acute (5) Substance induced mood disorder Current Visit: Yes Status: Acute (6) Insomnia Current Visit: Yes Status: Acute - Initial Treatment Plan Initial Treatment Plan: Psychoeducation. Detoxification. Sleep hygiene. AA meetings. Psychotherapy (group, supportive). Insomnia is addressed with melatonin at bedtime. patient agrees to this careplan. Observation.
--- NOTE | 2018-02-18 15:19 | EKG ---
Test Reason : Blood Pressure : / mmHG Vent. Rate : 116 BPM Atrial Rate : 116 BPM P-R Int : 152 ms QRS Dur : 096 ms QT Int : 332 ms P-R-T Axes : 061 036 052 degrees QTc Int : 461 ms SINUS TACHYCARDIA OTHERWISE NORMAL ECG WHEN COMPARED WITH ECG OF 29-NOV-2017 17:12, NO SIGNIFICANT CHANGE WAS FOUND Confirmed by CUATE DYSON MD ([id number]) on 02/18/2018 3:19:28 PM Referred By: Confirmed By:CUATE DYSON MD
[2018-02-18] MEDS: chlordiazePOXIDE HCL 25 MG CAPSULE PO SCH ×2 (16:59→22:07)
[2018-02-18 17:09] LABS: URINE APPEARANCE CLEAR; URINE BILIRUBIN NEGATIVE (<2.0 mg/dL); URINE COLOR AMBER; URINE GLUCOSE (UA) NEGATIVE (NEGATIVE); URINE KETONE NEGATIVE (NEGATIVE); URINE LEUK ESTERASE NEGATIVE (NEGATIVE); URINE NITRITE NEGATIVE (NEGATIVE); URINE PROTEIN 2+ (NEGATIVE); URINE UROBILINOGEN 4.0 E.U/dl mg/dL (0.2-1.0)
[2018-02-18 17:24] LABS: EPI CELLS FEW /HPF (FEW); URINE HYALINE CAST 1 /lpf; URINE MUCUS RARE
[2018-02-18] MEDS: IBUPROFEN 400 MG TABLET (FP) PO PRN (19:46)
[2018-02-18] MEDS ORDERED: PATIENT'S OWN MEDICATION (NON-FORMULARY) (Zolpidem Tartrate [Ambien] 5 MG) PO SCH (22:00)
[2018-02-18] MEDS: THIAMINE HCL 100 MG TABLET (FP) PO SCH (22:07)
[2018-02-18] MEDS: MELATONIN 5 MG TABLETS PO PRN (22:08)
[2018-02-18] MEDS: levETIRAcetam XR 500 MG TAB PO SCH (22:32)
[2018-02-18] MEDS: MAGNESIUM OXIDE 400 MG TABLET (FP) PO SCH (22:32)
[2018-02-19] MEDS: chlordiazePOXIDE HCL 25 MG CAPSULE PO SCH ×4 (05:51→22:21)
[2018-02-19] MEDS: IBUPROFEN 400 MG TABLET (FP) PO PRN (05:52)
[2018-02-19] MEDS: chlordiazePOXIDE HCL 25 MG CAPSULE PO PRN ×2 (08:34→12:35)
[2018-02-19] MEDS: FUROSEMIDE 40 MG TABLET (FP) PO SCH (10:08)
[2018-02-19] MEDS: TAMSULOSIN HCL 0.4 MG CAP PO SCH (10:08)
[2018-02-19] MEDS: PRENATAL VITAMINS W/ FOLIC ACID TABLET (FP) PO SCH (10:08)
[2018-02-19] MEDS: levETIRAcetam XR 500 MG TAB PO SCH ×2 (10:09→22:58)
[2018-02-19 10:47] LABS: HEMATOCRIT 41.4 % (35.4-49); HEMOGLOBIN 14.4 GM/dL (11.7-16.9); MCH 34.6 pg (25.7-33.7); MCHC 34.9 g/dl (32.0-35.9); MEAN CELL VOLUME 99.2 fl (80-96); MEAN PLT VOLUME 8.1 fl (7.5-11.1); PLATELET COUNT 160 K/MM3 (134-434); RBC 4.18 M/mm3 (4.00-5.60); RDW 13.1 % (11.9-15.9)
[2018-02-19 11:30] LABS: ALBUMIN 3.5 g/dl (3.4-5.0); ALK PHOS 154 U/L (45-117); ANION GAP 16 MMOL/L (8-16); BILIRUBIN,TOTAL 3.5 mg/dL (0.2-1); BLOOD UREA NITROGEN 7 mg/dL (7-18); CALCIUM 8.4 mg/dL (8.5-10.1); CHLORIDE 95 mmol/L (98-107); CO2 22 mmol/L (21-32); GLUCOSE,RANDOM 168 mg/dL (74-106); SGOT/AST 139 U/L (15-37); SGPT/ALT 58 U/L (13-61); SODIUM 133 mmol/L (136-145)
[2018-02-19] MEDS: MAGNESIUM OXIDE 400 MG TABLET (FP) PO SCH ×2 (13:55→22:21)
[2018-02-19] MEDS: GABAPENTIN 400 MG CAPSULE (FP) PO SCH ×2 (13:55→22:20)
--- NOTE | 2018-02-19 14:22 | PN ---
[facility] CIWA - CIWA Score Nausea/Vomitin Muscle Tremors: 4-Moderate,w/Arms Extend Anxiety: 4-Mod. Anxious/Guarded Agitation: 2 Paroxysmal Sweats: 3 Orientation: 0-Oriented Tacttile Disturbances: 1-Very Mild Itch/Numbness Auditory Disturbances: 0-None Visual Disturbances: 0-None Headache: 0-None Present CIWA-Ar Total Score: 16 S Progress Note (SOAP) Subjective: Tremor, headache, interrupted sleep. Patient requested to see psychiatrist stating he takes ambien at home for sleep. As per patient, he saw psychiatrist yesterday and he never received ambien. Objective: 02/19/18 14:17 Last Vital Signs Temp Pulse Resp BP Pulse Ox 97.7 F 81 18 125/79 02/19/18 13:32 02/19/18 13:32 02/19/18 13:32 02/19/18 13:32 Laboratory Tests 02/18/18 02/19/18 02/19/18 16:03 06:00 06:00 WBC 10.0 RBC 4.18 Hgb 14.4 Hct 41.4 MCV 99.2 H MCH 34.6 H MCHC 34.9 RDW 13.1 Plt Count 160 MPV 8.1 D Sodium 133 L Potassium 3.0 L Chloride 95 L Carbon Dioxide 22 Anion Gap 16 BUN 7 Creatinine 1.0 Creat Clearance w eGFR > 60 Random Glucose 168 H Calcium 8.4 L Total Bilirubin 3.5 H AST 139 H ALT 58 Alkaline Phosphatase 154 H Total Protein 8.0 Albumin 3.5 Urine Color Yarelis Urine Appearance Clear Urine pH 6.0 Ur Specific [place] 1.017 Urine Protein 2+ H Urine Glucose (UA) Negative Urine Ketones Negative Urine Blood 3+ H Urine Nitrite Negative Urine Bilirubin Negative Urine Urobilinogen 4.0 e.u/dl Ur Leukocyte Esterase Negative Urine WBC (Auto) 18 Urine RBC (Auto) 2 Ur Epithelial Cells Few Hyaline Casts 1 Urine Mucus Rare Labs reviewed: K 3.0, serum glucose 168, abnormal UA Assessment: 02/19/18 14:19 Withdrawal sxs Noted with hypokalemia, hyperglycemia and abnormal UA Plan: Continue detox Hypokalemia: K Dur 40 Meq liquid PO x 2 doses (at least 4 hr apart), K Dur 20 Meq PO daily, repeat serum K level in AM Hyperglycemia: repeat fasting glucose Abnormal UA: encouraged PO water intake, repeat UA
--- NOTE | 2018-02-19 14:38 | PN ---
Psychiatric Progress Note Vital Signs: Vital Signs Period Temp Pulse Resp BP Sys/Sarmiento Pulse Ox Last 24 Hr 97 F-97.8 F 80-114 18-18 90-125/64-81 Date of Session: 02/19/18 Chief Complaint:: "I need medication for sleep." HPI: Patient admitted to for alcohol, cocaine, cannabis and opioid dependence. ROS: Hypertension, obesity, benign prostatic hyperplasia, neuropathy, history of prostatitis, cirrhosis of liver, history of pylonephritis Current Medications: Active Medications Generic Name Dose Route Start Last Admin Trade Name Freq PRN Reason Stop Dose Admin Acetaminophen 650 mg 02/18/18 12:34 Tylenol - PO Q4H PRN FEVER Al Hydroxide/Mg Hydroxide 30 ml 02/18/18 12:34 Mylanta Oral Suspension - PO Q6H PRN DYSPEPSIA Chlordiazepoxide HCl 25 mg 02/19/18 17:00 Librium - PO 02/20/18 11:01 [id number] LALITHA Chlordiazepoxide HCl 15 mg 02/20/18 17:00 Librium - PO 02/21/18 11:01 [id number] LALITHA Chlordiazepoxide HCl 25 mg 02/18/18 12:34 02/19/18 12:35 Librium - PO 02/21/18 12:33 25 mg Q4H PRN Administration WITHDRAWAL(CONT SUBST) Chlordiazepoxide HCl 10 mg 02/21/18 17:00 Librium - PO 02/22/18 11:01 [id number] LALITHA Eucalyptus/Menthol/Phenol/Sorbitol 1 each 02/18/18 12:34 Cepastat Lozenge - MM Q4H PRN SORE THROAT Furosemide 40 mg 02/19/18 10:00 02/19/18 10:08 Lasix - PO 40 mg DAILY LALITHA Administration Gabapentin 800 mg 02/19/18 14:00 02/19/18 13:55 Neurontin - PO 800 mg TID LALITHA Administration Guaifenesin 10 ml 02/18/18 12:34 Robitussin Dm - PO Q6H PRN COUGH Ibuprofen 400 mg 02/18/18 12:34 02/19/18 05:52 Motrin - PO 400 mg Q6H PRN Administration PAIN LEVEL 4-6 Levetiracetam 1,000 mg 02/18/18 22:00 02/19/18 10:09 Keppra Xr - PO 1,000 mg BID LALITHA Administration Loperamide HCl 4 mg 02/18/18 12:34 Imodium - PO Q6H PRN DIARRHEA Magnesium Citrate 300 ml 02/18/18 12:34 Citroma - PO Q48H PRN CONSTIPATION Magnesium Hydroxide 30 ml 02/18/18 12:34 Milk Of Magnesia - PO DAILY PRN CONSTIPATION Magnesium Oxide 400 mg 02/18/18 22:00 02/19/18 13:55 Mag-Ox - PO 400 mg BID LALITHA Administration Melatonin 5 mg 02/18/18 22:00 02/18/18 22:08 Melatonin PO 5 mg HS PRN Administration INSOMNIA Multivit/Folic Acid/Iron 1 tab 02/19/18 10:00 02/19/18 10:08 Vitamins (Sjr) - PO 1 tab DAILY LALITHA Administration Pseudoephedrine/Triprolidine 1 combo 02/18/18 12:34 Actifed - PO TID PRN NASAL CONGESTION Tamsulosin HCl 0.4 mg 02/19/18 10:00 02/19/18 10:08 Flomax - PO 0.4 mg DAILY LALITHA Administration Thiamine HCl 100 mg 02/18/18 22:00 02/18/18 22:07 Vitamin B1 - PO 100 mg HS LALITHA Administration Medication(s) Change(s): Will order trazodone 50mg qhs. Current Side Effect: No Lab tests ordered: No Lab tests reviewed: Yes Provider note:: Patient c/o difficulty sleeping. He reports past history of accepting trazodone with good effect. Patient made aware of the risk of priapism when accepting trazodone. Psychoeducation and sleep hygiene provided. Will order trazodone 50mg. Verbal consent given. Total face to face time:: 25 Mental Status Exam - Mental Status Exam Alert and Oriented to: Time, Place, Person Cognitive Function: Good Patient Appearance: Well Groomed Mood: Hopeful Affect: Appropriate Patient Behavior: Appropriate, Cooperative Speech Pattern: Clear, Appropriate Thought Process: Intact, Goal Oriented Thought Disorder: Not Present Hallucinations: Denies Suicidal Ideation: Denies Homicidal Ideation: Denies Insight/Judgement: Poor Sleep: Poorly Appetite: Fair Muscle strength/Tone: Normal Gait/Station: Normal Psychiatric Treatment Plan - Problem List (1) Alcohol dependence with uncomplicated withdrawal Current Visit: Yes (2) Insomnia Current Visit: Yes (3) Substance induced mood disorder Current Visit: Yes (4) Cannabis dependence Current Visit: Yes (5) Cocaine dependence Current Visit: Yes
[2018-02-19] MEDS ORDERED: POTASSIUM CHLORIDE ORAL LIQUID 20 MEQ/15 ML PO ONE ×2 (14:42→20:00)
[2018-02-19] MEDS: traZODone HCL 50 MG TABLET (FP) PO SCH (22:20)
[2018-02-19] MEDS: THIAMINE HCL 100 MG TABLET (FP) PO SCH (22:21)
[2018-02-19] MEDS: MELATONIN 5 MG TABLETS PO PRN (22:21)
[2018-02-20] MEDS: chlordiazePOXIDE HCL 25 MG CAPSULE PO SCH ×2 (05:12→10:10)
[2018-02-20] MEDS: GABAPENTIN 400 MG CAPSULE (FP) PO SCH ×3 (05:12→22:11)
[2018-02-20] MEDS: IBUPROFEN 400 MG TABLET (FP) PO PRN (06:55)
[2018-02-20] MEDS: chlordiazePOXIDE HCL 25 MG CAPSULE PO PRN ×2 (07:15→13:35)
[2018-02-20] MEDS: MAGNESIUM OXIDE 400 MG TABLET (FP) PO SCH ×2 (10:09→22:11)
[2018-02-20] MEDS: PRENATAL VITAMINS W/ FOLIC ACID TABLET (FP) PO SCH (10:09)
[2018-02-20] MEDS: levETIRAcetam XR 500 MG TAB PO SCH ×2 (10:10→22:12)
[2018-02-20] MEDS: TAMSULOSIN HCL 0.4 MG CAP PO SCH (10:10)
[2018-02-20] MEDS: POTASSIUM CHLORIDE TABS 20 MEQ TABLET.ER (FP) PO SCH (10:10)
[2018-02-20] MEDS: FUROSEMIDE 40 MG TABLET (FP) PO SCH (10:10)
[2018-02-20 10:37] LABS: URINE APPEARANCE CLEAR; URINE BILIRUBIN NEGATIVE (<2.0 mg/dL); URINE COLOR AMBER; URINE GLUCOSE (UA) NEGATIVE (NEGATIVE); URINE KETONE NEGATIVE (NEGATIVE); URINE LEUK ESTERASE NEGATIVE (NEGATIVE); URINE NITRITE NEGATIVE (NEGATIVE); URINE PROTEIN NEGATIVE (NEGATIVE); URINE UROBILINOGEN 4.0 E.U/dl mg/dL (0.2-1.0)
[2018-02-20 10:43] LABS: URINE MUCUS RARE
[2018-02-20 11:09] LABS: POTASSIUM 3.9 mmol/L (3.5-5.1)
--- NOTE | 2018-02-20 16:59 | PN ---
[facility] CIWA - CIWA Score Nausea/Vomitin-No Nausea/No Vomiting Muscle Tremors: None Anxiety: 4-Mod. Anxious/Guarded Agitation: 4-Moderately Restless Paroxysmal Sweats: No Perspiration Orientation: 0-Oriented Tacttile Disturbances: 0-None Auditory Disturbances: 0-None Visual Disturbances: 0-None Headache: 0-None Present CIWA-Ar Total Score: 8 S Progress Note (SOAP) Subjective: Anxious. Patient requested to be discharged tomorrow instead of Friday because he has to work. Patient denied using cocaine and cannabis despite positive urine toxicology result and told comic writer that he was only drinking alcohol and maybe he drank too much and maybe he was given something to smoke which he cannot recall. Class C Driver discussed elevated glucose and microscopic hematuria result with patient this morning and instructed patient to follow up with his PCP within 1 week. Objective: 02/20/18 16:57 Last Vital Signs Temp Pulse Resp BP Pulse Ox 97.7 F 86 18 101/72 02/20/18 15:48 02/20/18 15:48 02/20/18 15:48 02/20/18 15:48 Laboratory Tests 02/18/18 02/19/18 02/19/18 16:03 06:00 06:00 WBC 10.0 RBC 4.18 Hgb 14.4 Hct 41.4 MCV 99.2 H MCH 34.6 H MCHC 34.9 RDW 13.1 Plt Count 160 MPV 8.1 D Sodium 133 L Potassium 3.0 L Chloride 95 L Carbon Dioxide 22 Anion Gap 16 BUN 7 Creatinine 1.0 Creat Clearance w eGFR > 60 Random Glucose 168 H Fasting Glucose Calcium 8.4 L Total Bilirubin 3.5 H AST 139 H ALT 58 Alkaline Phosphatase 154 H Total Protein 8.0 Albumin 3.5 Urine Color Yarelis Urine Appearance Clear Urine pH 6.0 Ur Specific [place] 1.017 Urine Protein 2+ H Urine Glucose (UA) Negative Urine Ketones Negative Urine Blood 3+ H Urine Nitrite Negative Urine Bilirubin Negative Urine Urobilinogen 4.0 e.u/dl Ur Leukocyte Esterase Negative Urine WBC (Auto) 18 Urine RBC (Auto) 2 Ur Epithelial Cells Few Hyaline Casts 1 Urine Mucus Rare RPR Titer 02/19/18 02/20/18 02/20/18 06:00 07:00 07:00 WBC RBC Hgb Hct MCV MCH MCHC RDW Plt Count MPV Sodium Potassium 3.9 Chloride Carbon Dioxide Anion Gap BUN Creatinine Creat Clearance w eGFR Random Glucose Fasting Glucose 126 H Calcium Total Bilirubin AST ALT Alkaline Phosphatase Total Protein Albumin Urine Color Yarelis Urine Appearance Clear Urine pH 8.0 D Ur Specific [place] 1.012 Urine Protein Negative Urine Glucose (UA) Negative Urine Ketones Negative Urine Blood 3+ H Urine Nitrite Negative Urine Bilirubin Negative Urine Urobilinogen 4.0 e.u/dl Ur Leukocyte Esterase Negative Urine WBC (Auto) 4 Urine RBC (Auto) 32 Ur Epithelial Cells Hyaline Casts Urine Mucus Rare RPR Titer Nonreactive Labs reviewed: serum glucose 126 (was 168), UA shows persistent microscopic hematuria Assessment: 02/20/18 16:59 Withdrawal sxs Noted with DMT2 with hyperglycemia and persistent microscopic hematuria Plan: Continue detox DMT2 with hyperglycemia, newly diagnosed: start finger stick glucose ac meals, start metformin 500mg PO bid, start insulin novolog sliding scale coverage, instructed to follow up with PCP within 1 week, avoid concentrated sweets Persistent microscopic hematuria: encouraged PO water intake, instructed to follow up with PCP within 1 week Patient is for discharge tomorrow.
[2018-02-20] MEDS: metFORMIN HCL 500 MG TABLET (FP) PO SCH (17:08)
[2018-02-20] MEDS: chlordiazePOXIDE 5 MG CAPSULE PO SCH ×2 (17:09→22:12)
[2018-02-20] MEDS: INSULIN SLIDING SCALE (NOVOLOG) 1 VIAL SQ SCH (17:10)
[2018-02-20] MEDS: THIAMINE HCL 100 MG TABLET (FP) PO SCH (22:10)
[2018-02-20] MEDS: traZODone HCL 50 MG TABLET (FP) PO SCH (22:11)
[2018-02-20] MEDS: MELATONIN 5 MG TABLETS PO PRN (22:12)
[2018-02-21] MEDS ORDERED: chlordiazePOXIDE HCL 10 MG CAPSULE PO SCH ×2 (05:00→17:00)
[2018-02-21] MEDS: GABAPENTIN 400 MG CAPSULE (FP) PO SCH (05:36)
[2018-02-21] MEDS: IBUPROFEN 400 MG TABLET (FP) PO PRN (05:40)
[2018-02-21 06:18] VITALS: BP 110/70; PULSE 81; TEMP 98.4
[2018-02-21] MEDS: INSULIN SLIDING SCALE (NOVOLOG) 1 VIAL SQ SCH (06:23)
[2018-02-21] MEDS: metFORMIN HCL 500 MG TABLET (FP) PO SCH (06:23)
[2018-02-21] MEDS: PRENATAL VITAMINS W/ FOLIC ACID TABLET (FP) PO SCH (10:05)
[2018-02-21] MEDS: FUROSEMIDE 40 MG TABLET (FP) PO SCH (10:05)
[2018-02-21] MEDS: TAMSULOSIN HCL 0.4 MG CAP PO SCH (10:06)
[2018-02-21] MEDS: MAGNESIUM OXIDE 400 MG TABLET (FP) PO SCH (10:06)
[2018-02-21] MEDS: levETIRAcetam XR 500 MG TAB PO SCH (10:06)
[2018-02-21] MEDS: POTASSIUM CHLORIDE TABS 20 MEQ TABLET.ER (FP) PO SCH (10:06)
--- NOTE | 2018-02-21 11:09 | DS ---
[facility] Detox Discharge Summary Admission Date: 02/18/18 Discharge Date: 02/21/18 - History Present History: Alcohol Dependence Additional Comments: ALERT O X 3. NAD. PT COMPLETED DETOX. REPORTS HE HAS PRIMARY CARE WITH BENEDICT CONRAD OF [facility] ON [place], [place]. PT WILL FOLLOW UP WITH PMD FOR MEDICAL MANAGEMENT NEEDED WITHIN 1-2 WEEKS AFTER DISCHARGE. Pertinent Past History: PLEASE SEE DX BELOW - Physical Exam Results Vital Signs: Vital Signs Temperature 98.4 F 02/21/18 06:17 Pulse Rate 81 02/21/18 06:17 Respiratory Rate 18 02/21/18 06:17 Blood Pressure 110/70 02/21/18 06:17 O2 Sat by Pulse Oximetry (%) Pertinent Admission Physical Exam Findings: WITHDRAWAL SX Laboratory Tests 02/18/18 02/19/18 02/19/18 16:03 06:00 06:00 WBC 10.0 RBC 4.18 Hgb 14.4 Hct 41.4 MCV 99.2 H MCH 34.6 H MCHC 34.9 RDW 13.1 Plt Count 160 MPV 8.1 D Sodium 133 L Potassium 3.0 L Chloride 95 L Carbon Dioxide 22 Anion Gap 16 BUN 7 Creatinine 1.0 Creat Clearance w eGFR > 60 POC Glucometer Random Glucose 168 H Fasting Glucose Calcium 8.4 L Total Bilirubin 3.5 H AST 139 H ALT 58 Alkaline Phosphatase 154 H Total Protein 8.0 Albumin 3.5 Urine Color Yarelis Urine Appearance Clear Urine pH 6.0 Ur Specific [place] 1.017 Urine Protein 2+ H Urine Glucose (UA) Negative Urine Ketones Negative Urine Blood 3+ H Urine Nitrite Negative Urine Bilirubin Negative Urine Urobilinogen 4.0 e.u/dl Ur Leukocyte Esterase Negative Urine WBC (Auto) 18 Urine RBC (Auto) 2 Ur Epithelial Cells Few Hyaline Casts 1 Urine Mucus Rare RPR Titer 02/19/18 02/20/18 02/20/18 06:00 07:00 07:00 WBC RBC Hgb Hct MCV MCH MCHC RDW Plt Count MPV Sodium Potassium 3.9 Chloride Carbon Dioxide Anion Gap BUN Creatinine Creat Clearance w eGFR POC Glucometer Random Glucose Fasting Glucose 126 H Calcium Total Bilirubin AST ALT Alkaline Phosphatase Total Protein Albumin Urine Color Yarelis Urine Appearance Clear Urine pH 8.0 D Ur Specific [place] 1.012 Urine Protein Negative Urine Glucose (UA) Negative Urine Ketones Negative Urine Blood 3+ H Urine Nitrite Negative Urine Bilirubin Negative Urine Urobilinogen 4.0 e.u/dl Ur Leukocyte Esterase Negative Urine WBC (Auto) 4 Urine RBC (Auto) 32 Ur Epithelial Cells Hyaline Casts Urine Mucus Rare RPR Titer Nonreactive 02/20/18 02/21/18 16:58 05:38 WBC RBC Hgb Hct MCV MCH MCHC RDW Plt Count MPV Sodium Potassium Chloride Carbon Dioxide Anion Gap BUN Creatinine Creat Clearance w eGFR POC Glucometer 136 109 Random Glucose Fasting Glucose Calcium Total Bilirubin AST ALT Alkaline Phosphatase Total Protein Albumin Urine Color Urine Appearance Urine pH Ur Specific [place] Urine Protein Urine Glucose (UA) Urine Ketones Urine Blood Urine Nitrite Urine Bilirubin Urine Urobilinogen Ur Leukocyte Esterase Urine WBC (Auto) Urine RBC (Auto) Ur Epithelial Cells Hyaline Casts Urine Mucus RPR Titer COPY OF LAB RESULT GIVEN TO PT FOR FOLLOW UP WITH HIS PMD. - Treatment Hospital Course: Detox Protocol Followed, Detoxed Safely, Responded well, Discharged Condition Good - Medication Discharge Medications: Ambulatory Orders Cyclobenzaprine HCl [Flexeril -] 10 mg PO TID 09/03/17 Furosemide [Lasix] 40 mg PO DAILY 09/03/17 Tamsulosin HCl 0.4 mg PO DAILY 09/03/17 Zolpidem Tartrate [Ambien] 5 mg PO HS 09/03/17 oxyCODONE HCL [Roxicodone -] 20 mg PO Q6H 09/03/17 Magnesium Oxide [Mag-Ox -] 400 mg PO BID 30 Days #60 tablet 09/06/17 levETIRAcetam [Keppra Xr -] 1,000 mg PO BID 30 Days #60 tab 09/06/17 Gabapentin 800 mg PO TID 02/18/18 metFORMIN HCL [Metformin HCl] 500 mg PO BIDAC #30 tablet 02/20/18 - AMA Did Patient Leave Against Medical Advice: No
== END 2018-02-21 11:11 | disposition home or self-care (01) | DRG 774 ==
LOC: YASAS 08:40 → Y3N 12:37
PROC: HZ2ZZZZ Detoxification Services for Substance Abuse Treatment (ICD-10-PCS; principal; 2018-02-18)
DX: F10.230 Alcohol dependence with withdrawal, uncomplicated (principal); F14.20 Cocaine dependence, uncomplicated; F12.20 Cannabis dependence, uncomplicated; F17.213 Nicotine dependence, cigarettes, with withdrawal; F31.9 Bipolar disorder, unspecified; F19.24 Other psychoactive substance dependence with psychoactive substance-induced mood disorder; G47.00 Insomnia, unspecified; G62.9 Polyneuropathy, unspecified; I10 Essential (primary) hypertension; E87.6 Hypokalemia; E11.65 Type 2 diabetes mellitus with hyperglycemia; Z79.84 Long term (current) use of oral hypoglycemic drugs; K74.60 Unspecified cirrhosis of liver; G40.909 Epilepsy, unspecified, not intractable, without status epilepticus; R56.9 Unspecified convulsions; R55 Syncope and collapse; M54.5 Low back pain; N40.0 Benign prostatic hyperplasia without lower urinary tract symptoms; R31.29 Other microscopic hematuria; E66.9 Obesity, unspecified; Z68.32 Body mass index [BMI] 32.0-32.9, adult
CPT/HCPCS: 36415; 80053; 81003; 81015; 82947; 82962; 84132; 85027; 86593; 93005; 93010

== ENCOUNTER 2018-03-01 22:01 | Emergency (ER) | payer OTHER ==
[2018-03-01 22:06] VITALS: TEMP 98; BMI 34.2
--- NOTE | 2018-03-01 23:16 | PDOC ---
History of Present Illness - General Chief Complaint: Seizure Stated Complaint: SEIZURE Time Seen by Provider: 03/01/18 22:13 History Source: Patient Exam Limitations: No Limitations - History of Present Illness Initial Comments: 03/01/18 22:58 Patient is a 47-year-old male with history of BPH, cirrhosis, syncope, seizure disorder, neuropathy, chronic low back pain, shoulder dislocation, LAP-BAND surgery 2009, and hernia repair 2013, left shoulder arthroscopic 2011, polysubstance abuse - EtOH, cocaine, marijuana and came with complaining of "I had a seizure". She states that about 8:00 PM tonight he was walking to the bathroom in his house to take his seizure meds, then woke up on the floor and had incontinence of urine, no tongue biting. States he he woke up about an 1.5 hours later, cleaned himself up and took his medications, and presents here for evaluation. Patient endorses compliance with all of his medications. Patient states that in times past when he has a seizure that he has been kept overnight. Patient complains of a headache which is 6/10, generalized, and bilateral elbow pain. PMD: Dr. Rush NEURO: Across [address] PMHX: as above PSOCHX: lives alone, polysubstance abuse ALL: NKDA GENERAL/CONSTITUTIONAL: [No fever or chills. No weakness. No weight change.] HEAD, EYES, EARS, NOSE AND THROAT: [No change in vision. No ear pain or discharge. No sore throat.] CARDIOVASCULAR: [No chest pain or shortness of breath.] RESPIRATORY: [No cough, wheezing, or hemoptysis.] GASTROINTESTINAL: [No nausea, vomiting, diarrhea or constipation. No rectal bleeding.] GENITOURINARY: [No dysuria, frequency, or change in urination.] MUSCULOSKELETAL: [No joint or muscle swelling or pain. No neck or back pain.] SKIN AND BREASTS: [No rash or easy bruising.] NEUROLOGIC: [No headache, vertigo, loss of consciousness, or loss of sensation.] PSYCHIATRIC: [No depression or anxiety.] ENDOCRINE: [No increased thirst. No abnormal weight change.] HEMATOLOGIC/LYMPHATIC: [No anemia, easy bleeding, or history of blood clots.] ALLERGIC/IMMUNOLOGIC: [No hives or skin allergy. No latex allergy.] GENERAL: [The patient is awake, alert, and fully oriented, in no acute distress , AOB.] HEAD: [Normal with no signs of trauma.] EYES: [Pupils equal, round and reactive , pinpoint, extraocular movements intact , sclera anicteric, conjunctiva clear.] ENT: [Ears normal, nares patent, oropharynx clear without exudates. Moist mucous membranes.] NECK: [Normal range of motion, supple without lymphadenopathy, JVD, or masses.] LUNGS: [Breath sounds equal, clear to auscultation bilaterally. No wheezes, and no crackles.] HEART: [Regular rate and rhythm, normal S1 and S2 without murmur, rub.] ABDOMEN: obese, Soft, nontender, normoactive bowel sounds, (+) umbilical hernia , No guarding, no rebound. No masses.] EXTREMITIES: [Normal range of motion all extremities, (+) edema. No clubbing or cyanosis. No cords, erythema, or tenderness.] NEUROLOGICAL: [Cranial nerves II through XII grossly intact. Normal speech, normal gait.] PSYCH: [Normal mood, normal affect.] Past History - Past Medical History Allergies/Adverse Reactions: Allergies Allergy/AdvReac Type Severity Reaction Status Date / Time No Known Allergies Allergy Verified 03/01/18 22:06 Home Medications: Ambulatory Orders Cyclobenzaprine HCl [Flexeril -] 10 mg PO TID 09/03/17 Furosemide [Lasix] 40 mg PO DAILY 09/03/17 Tamsulosin HCl 0.4 mg PO DAILY 09/03/17 Zolpidem Tartrate [Ambien] 5 mg PO HS 09/03/17 oxyCODONE HCL [Roxicodone -] 20 mg PO Q6H 09/03/17 Magnesium Oxide [Mag-Ox -] 400 mg PO BID 30 Days #60 tablet 09/06/17 levETIRAcetam [Keppra Xr -] 1,000 mg PO BID 30 Days #60 tab 09/06/17 Gabapentin 800 mg PO TID 02/18/18 metFORMIN HCL [Metformin HCl] 500 mg PO BIDAC #30 tablet 02/20/18 Anemia: No Asthma: No Cancer: No Cardiac Disorders: No CVA: No COPD: No CHF: No DVT: No Dementia: No Diabetes: No GI Disorders: No Disorders: Yes (BPH) HTN: Yes (ON LASIX) Hypercholesterolemia: No Kidney Stones: No Liver Disease: Yes (fatty liver, CIRRHOSIS) Psychiatric Problems: Yes (ANXIETY) Seizures: Yes (LAST SEIZURE WAS JULY 2017) Thyroid Disease: No - Surgical History Abdominal Surgery: Yes (LAP BAND 2009/umbilical hernia repaired 2013) Appendectomy: No Cardiac Surgery: No Cholecystectomy: No GI Surgery: Yes (hernia repair) Lung Surgery: No Neurologic Surgery: No Orthopedic Surgery: Yes (ARTHROSCOPY LEFT SHOULDER 2011) - Reproductive History Testicular Surgery: No - Immunization History Immunization Up to Date: Yes - Suicide/Smoking/Psychosocial Hx Smoking Status: No Smoking History: Never smoked Have you smoked in the past 12 months: No Number of Cigarettes Smoked Daily: 1 Cigars Per Day: 0 Information on smoking cessation initiated: No 'Breaking Loose' booklet given: 02/18/18 Hx Alcohol Use: No Drug/Substance Use Hx: No Substance Use Type: Alcohol, Cocaine, Marijuana Hx Substance Use Treatment: Yes ([facility] 06/29/17 to 07/04/17) *Physical Exam - Vital Signs Last Vital Signs Temp Pulse Resp BP Pulse Ox 98.0 F 102 H 16 108/66 98 03/01/18 22:03 03/01/18 22:03 03/01/18 22:03 03/01/18 22:03 03/01/18 22:03 ED Treatment Course - LABORATORY CBC & Chemistry Diagram: 03/01/18 23:08 03/01/18 23:08 - RADIOLOGY Radiology Studies Ordered: Category Date Time Status HEAD CT WITHOUT CONTRAST [CT] Stat CT Scan 03/01/18 22:42 Ordered Medical Decision Making - Medical Decision Making 03/01/18 22:58 Patient is a 47-year-old male with history of BPH, cirrhosis, syncope, seizure disorder, neuropathy, chronic low back pain, shoulder dislocation, LAP-BAND surgery 2009, and hernia repair 2013, left shoulder arthroscopic 2011, polysubstance abuse - EtOH, cocaine, marijuana and came with complaining of "I had a seizure". Patient has seizure disorder but also has alcohol abuse, with head injury. No visible injury but has a headache. Seizure most likely due to alcohol. will get labs, CT head. reassess review of the chart show last time patient seen in the ED was 02/18/18, admitted for detox. 03/01/18 23:59 Patient Full Name: BAKARI REYNA Patient Accession No: [id number] Patient : 1970 Reason for Exam: seizure ,fall Referring Physician: Patient Name: MARIBELL VILLEGAS THIS IS A PRELIMINARY REPORT FROM [facility] DATE OF SERVICE: 2018-03-01 23:29:25 IMAGES: [id number] EXAM: HEAD CT WITHOUT CONTRAST HISTORY: Seizure and fall COMPARISON: None. FINDINGS: The ventricular system is midline and nondilated. Mild cortical atrophy is noted. There is no bleed, mass, extra-axial fluid collection or mass effect. No skull fracture or skull lesion is identified. The visualized right maxillary sinus is completely opacified consistent with sinusitis. The other visualized paranasal sinuses and mastoid air cells are clear. IMPRESSION: No acute intracranial pathology. Right maxillary sinusitis. One or more of the following dose reduction techniques were used: automated exposure control, adjustment of the mA and/or kV according to patient size, use of iterative reconstructive technique. THIS DOCUMENT HAS BEEN ELECTRONICALLY SIGNED Conor Ivy MD 03/01/2018 23:45 JACKI Garcia. Please call [facility] [phone] ([phone]) with questions. INTERPRETING RADIOLOGIST: Martir Ivy MD Electronically Signed: Mar 01, 2018 11:48PM EST Labs reviewed and noted to have a potassium of 3.4 low give KCl 20 mg by mouth, which also gave her magnesium 2 g IV, Librium 100 mg by mouth. Patient wanting to stay in the hospital onto the morning when his mother comes home from work. Explained to the patient that there was no need to keep him overnight. I discussed the physical exam findings, ancillary test results and final diagnoses with the patient. I answered all of the patient's questions. The patient was satisfied with the care received and felt comfortable with the discharge plan and treatment plan. The Patient agrees to follow up with the primary care physician within 24-72 hours. *DC/Admit/Observation/Transfer Diagnosis at time of Disposition: Seizure - Discharge Dispostion Disposition: HOME Condition at time of disposition: Stable - Referrals Referrals: Neil Rush MD [Primary Care Provider] - - Patient Instructions Printed Discharge Instructions: DI for Seizure Disorder -- Adult Additional Instructions: Your Discharge Instructions: You must call primary care physician within 24 hours to arrange follow-up. Return to the Emergency Department with any new, persistent or worsening symptoms, for fever, chills, SOB, dizziness or any other concerning changes that may occur. Continue her seizure meds as prescribed. - Post Discharge Activity
[2018-03-01 23:20] LABS: BASO % 0.9 % (0-2.0); EOS % 5.9 % (0-4.5); HEMATOCRIT 36.7 % (35.4-49); HEMOGLOBIN 12.5 GM/dL (11.7-16.9); LYMPH % 29.3 % (8-40); MCH 33.8 pg (25.7-33.7); MCHC 34.2 g/dl (32.0-35.9); MEAN CELL VOLUME 98.8 fl (80-96); MEAN PLT VOLUME 7.8 fl (7.5-11.1); MONO % 20.8 % (3.8-10.2); NEUT % 43.1 % (42.8-82.8); PLATELET COUNT 206 K/MM3 (134-434); RBC 3.72 M/mm3 (4.00-5.60); RDW 13.4 % (11.9-15.9); WHITE BLOOD COUNT 5.2 K/mm3 (4.0-10.0)
[2018-03-01 23:51] LABS: ALK PHOS 135 U/L (45-117); ANION GAP 6 MMOL/L (8-16); BILIRUBIN,TOTAL 0.9 mg/dL (0.2-1); BLOOD UREA NITROGEN 10 mg/dL (7-18); CALCIUM 8.6 mg/dL (8.5-10.1); CHLORIDE 98 mmol/L (98-107); CO2 34 mmol/L (21-32); CREATININE 0.9 mg/dL (0.55-1.3); GLUCOSE,RANDOM 122 mg/dL (74-106); POTASSIUM 3.4 mmol/L (3.5-5.1); SGOT/AST 74 U/L (15-37); SGPT/ALT 48 U/L (13-61); SODIUM 137 mmol/L (136-145)
[2018-03-02] MEDS ORDERED: MAGNESIUM SULF 50% (8.12 MEQ/2 ML-1 GM VIAL) IVPB ONE (00:14)
[2018-03-02] MEDS ORDERED: POTASSIUM CHLORIDE TABS 20 MEQ TABLET.ER (FP) PO ONE (00:14)
[2018-03-02] MEDS ORDERED: chlordiazePOXIDE HCL 25 MG CAPSULE PO ONE (00:15)
[2018-03-02] MEDS ORDERED: chlordiazePOXIDE HCL 25 MG CAPSULE ONE (00:32)
[2018-03-02] MEDS ORDERED: MAGNESIUM 1GM/D5W - 2 GM/200 ML IVPB IVPB ONE (00:33)
[2018-03-02] MEDS ORDERED: POTASSIUM CHLORIDE TABS 10 MEQ TABLET.ER (FP) ONE ×2 (00:33→00:41)
[2018-03-02] MEDS ORDERED: MAGNESIUM SULF 50% (8.12 MEQ/2 ML-1 GM VIAL) ONE (00:48)
[2018-03-02 01:53] LABS: ANISOCYTOSIS 0; MACROCYTOSIS 0; PLATELET ESTIMATE NORMAL
[2018-03-02 02:08] VITALS: BP 106/64; PULSE 90
== END 2018-03-02 02:08 | disposition home or self-care (01) ==
LOC: JER 22:01
PROC: 3E033GC Introduction of Other Therapeutic Substance into Peripheral Vein, Percutaneous Approach (ICD-10-PCS; principal; 2018-03-01)
DX: G40.909 Epilepsy, unspecified, not intractable, without status epilepticus (principal); E87.6 Hypokalemia; N40.0 Benign prostatic hyperplasia without lower urinary tract symptoms; K74.60 Unspecified cirrhosis of liver
CPT/HCPCS: 36415; 70450-TC; 80053; 80307; 82550; 82553; 85025; 96374; 99284-25

== ENCOUNTER 2018-05-18 06:29 | Emergency (ER) | payer OTHER | END 2018-05-18 09:59 | disposition home or self-care (01) | LOC: JER 06:29 ==

== ENCOUNTER 2018-11-16 09:58 | Emergency (ER) | payer OTHER ==
[2018-11-16 10:05] VITALS: BP 116/86; PULSE 81; TEMP 98.3; BMI 30.5
[2018-11-16] MEDS ORDERED: KETOROLAC TROMETHAMINE 60 MG/2 ML VIAL IM ONE (11:03)
[2018-11-16] MEDS ORDERED: CYCLOBENZAPRINE HCL 10 MG TABLET (FP) PO ONE (11:03)
--- NOTE | 2018-11-16 11:03 | PDOC ---
History of Present Illness - General Chief Complaint: Back Pain Stated Complaint: BACK AND NECK PAIN Time Seen by Provider: 11/16/18 10:15 History Source: Patient Exam Limitations: No Limitations Past History - Travel Traveled outside of the country in the last 30 days: No Close contact w/someone who was outside of country & ill: No - Past Medical History Allergies/Adverse Reactions: Allergies Allergy/AdvReac Type Severity Reaction Status Date / Time No Known Allergies Allergy Verified 11/17/18 19:00 Home Medications: Ambulatory Orders Furosemide [Lasix] 40 mg PO DAILY 09/03/17 Tamsulosin HCl 0.4 mg PO DAILY 09/03/17 Zolpidem Tartrate [Ambien] 5 mg PO HS 09/03/17 oxyCODONE HCL [Roxicodone -] 20 mg PO Q6H 09/03/17 Magnesium Oxide [Mag-Ox -] 400 mg PO BID 30 Days #60 tablet 09/06/17 metFORMIN HCL [Metformin HCl] 500 mg PO BIDAC #30 tablet 02/20/18 Gabapentin 600 mg PO TID 05/28/18 Spironolactone [Aldactone -] 25 mg PO DAILY 05/28/18 Cyclobenzaprine HCl [Flexeril -] 10 mg PO HS #10 tablet 11/16/18 Duloxetine HCl 30 mg PO DAILY 11/18/18 Ergocalciferol (Vitamin D2) [Vitamin D2] 50,000 unit PO WEEKLY 11/18/18 Acetaminophen [Tylenol .Regular Strength -] 650 mg PO Q4H PRN tablet 11/19/18 Folic Acid - 1 mg PO DAILY #30 tablet 11/19/18 Thiamine HCl [Vitamin B1 -] 100 mg PO DAILY #30 tablet 11/19/18 levETIRAcetam [Keppra -] 1,250 mg PO BID #300 tablet 11/19/18 Anemia: No Asthma: No Cancer: No Cardiac Disorders: No CVA: No COPD: No CHF: Yes (on lasix) DVT: No Dementia: No Diabetes: No GI Disorders: No Disorders: Yes (BPH) HTN: No (ON LASIX) Hypercholesterolemia: No Kidney Stones: No Liver Disease: Yes (fatty liver, CIRRHOSIS) Psychiatric Problems: Yes (ANXIETY) Seizures: Yes (alcohol related) Thyroid Disease: No Other medical history: back injury - Surgical History Abdominal Surgery: Yes (LAP BAND 2009/umbilical hernia repaired 2013) Appendectomy: No Cardiac Surgery: No Cholecystectomy: No GI Surgery: Yes (hernia repair) Lung Surgery: No Neurologic Surgery: No Orthopedic Surgery: Yes (ARTHROSCOPY LEFT SHOULDER 2011, knees arthroscopy) - Reproductive History Testicular Surgery: No - Immunization History Immunization Up to Date: Yes - Suicide/Smoking/Psychosocial Hx Smoking Status: No Smoking History: Unknown if ever smoked Have you smoked in the past 12 months: Yes Number of Cigarettes Smoked Daily: 5 Cigars Per Day: 0 Information on smoking cessation initiated: No 'Breaking Loose' booklet given: 02/18/18 Hx Alcohol Use: No Drug/Substance Use Hx: No Substance Use Type: Alcohol, Cocaine, Marijuana Hx Substance Use Treatment: Yes ([facility] 06/29/17 to 07/04/17) Review of Systems - Review of Systems Able to Perform ROS?: Yes Comments:: 11/16/18 14:08 CONSTITUTIONAL: Absent: fever, chills, diaphoresis, generalized weakness, malaise, loss of appetite GASTROINTESTINAL: Absent: abdominal pain, abdominal distension, nausea, vomiting, diarrhea, constipation, melena, hematochezia GENITOURINARY: Absent: dysuria, frequency, urgency, hesitancy, hematuria, flank pain, genital pain MUSCULOSKELETAL: Present: low back pain, neck pain, R knee pain Absent: arthralgia, joint swelling SKIN: Absent: rash, itching, pallor NEUROLOGIC: Absent: headache, focal weakness or paresthesias, dizziness, unsteady gait, seizure, mental status changes, bladder or bowel incontinence PSYCHIATRIC: Absent: anxiety, depression, suicidal or homicidal ideation, hallucinations. Is the patient limited Citizen Of [place] proficient: No *Physical Exam - Vital Signs Last Vital Signs Temp Pulse Resp BP Pulse Ox 98.3 F 81 18 116/86 100 11/16/18 10:01 11/16/18 10:01 11/16/18 10:01 11/16/18 10:01 11/16/18 10:01 - Physical Exam Comments: 11/16/18 14:10 GENERAL: Well developed, well nourished. Awake and alert. No acute distress. NECK: Supple. Full ROM. No JVD. Carotid pulses 2+ and symmetric, without bruits. No thyromegaly. No lymphadenopathy. MUSCULOSKELETAL TTP of the R paraspinous muscles, T6-T10, with palpable knot consistent with muscle spasm. No midline tenderness. R knee is edematous with an effusion superiorly. Knee is not warm or red. Normal range of motion at all joints. No bony deformities or tenderness. No CVA tenderness. EXTREMITIES: No cyanosis. No clubbing. No edema. No calf tenderness. SKIN: Warm and dry. Normal capillary refill. No rashes. No jaundice. NEUROLOGICAL: Alert, awake, appropriate. Cranial nerves 2-12 intact. No deficits to light touch and temperature in face, upper extremities and lower extremities. No motor deficits in the in face, upper extremities and lower extremities. Normoreflexic in the upper and lower extremities. Normal speech. Toes are down- going bilaterally. Gait is normal without ataxia. PSYCHIATRIC: Cooperative. Good eye contact. Appropriate mood and affect. Medical Decision Making - Medical Decision Making 11/16/18 14:11 The patient is a 44 y/o M with PMH of alcohol abuse with withdrawal seizures, who presents to the ER with thoracic pain,and R knee pain. The patient states that he woke up this morning with upper back pain. He states he fell back in September. He has history of previous back surgeries and knee injuries. He states his knee is also swollen since three days ago, however, it has gone down since last night. denies fevers, chills, numbness and tingling and weakness to the affected extremities, saddle anesthesia and bladder bowel incontinence. A/P: Acute on chronic thoracic back pain, right knee pain. -Pt with TTP of the R paraspinous muscles, T6-T10, with palpable knot consistent with muscle spasm. No midline tenderness. -R knee is edematous with an effusion superiorly. Knee is not warm or red -No trauma, or fever. No saddle anesthesia or bladder/bowel incontinence. No CVA tenderness. -Pt is neurologically intact on exam with no focal findings. -X-rays are negative for acute pathology. -Toradol given with relief of symptoms -DC home. Pt to f/u with her PCP. Ortho referral given. -I discussed the physical exam findings, ancillary test results and final diagnoses with the patient. I answered all of the patient's questions. The patient was satisfied with the care received and felt comfortable with the discharge plan and treatment plan. The Patient agrees to follow up with the primary care physician/specialist within 24-72 hours. Return precautions were given. *DC/Admit/Observation/Transfer Diagnosis at time of Disposition: Swelling of knee joint, right Knee pain, right Qualifiers: Chronicity: acute Qualified Code(s): M25.561 - Pain in right knee Back pain Qualifiers: Back pain location: thoracic back pain Chronicity: acute Back pain laterality: right Qualified Code(s): M54.6 - Pain in thoracic spine - Discharge Dispostion Disposition: HOME Condition at time of disposition: Stable Decision to Admit order: No - Prescriptions Prescriptions: Cyclobenzaprine HCl [Flexeril -] 10 mg PO HS #10 tablet - Referrals Referrals: Neil Rush MD [Primary Care Provider] - Ahmet Coelho MD [Staff Physician] - - Patient Instructions Printed Discharge Instructions: DI for Knee Pain, DI for Thoracic Back Pain Additional Instructions: You were evaluated for your knee pain and back pain. Your x-rays did not show any fractures or broken bones. Please follow-up with the orthopedist of this week for your knee pain. Please wear an Danie wrap to help with the swelling. Take all your medications as prescribed. You may take Flexeril 10 mg before bed to help with the spasm. Follow up with her primary care doctor this week as well. Return to the ER for any new or worsening symptoms. - Post Discharge Activity
[2018-11-16] MEDS ORDERED: CYCLOBENZAPRINE HCL 10 MG TABLET (FP) ONE (11:42)
[2018-11-16] MEDS ORDERED: KETOROLAC TROMETHAMINE 60 MG/2 ML VIAL ONE (11:42)
== END 2018-11-16 11:58 | disposition home or self-care (01) ==
LOC: JERFT 09:58 → JER 09:58 → JERFT 11:58
PROC: 3E0233Z Introduction of Anti-inflammatory into Muscle, Percutaneous Approach (ICD-10-PCS; principal; 2018-11-16)
DX: M25.461 Effusion, right knee (principal); M54.6 Pain in thoracic spine; I50.9 Heart failure, unspecified; F41.9 Anxiety disorder, unspecified; G40.509 Epileptic seizures related to external causes, not intractable, without status epilepticus; N40.0 Benign prostatic hyperplasia without lower urinary tract symptoms; Z98.84 Bariatric surgery status
CPT/HCPCS: 72070-TC-FY; 73562-TC-RT-FY; 96372; 99281-25

== ENCOUNTER 2018-11-17 18:52 | Inpatient (IN) | payer OTHER ==
--- NOTE | 2018-11-17 19:04 | PDOC ---
Rapid Medical Evaluation Chief Complaint: Chest Pain Time Seen by Provider: 11/17/18 19:00 Medical Evaluation: Allergies Allergy/AdvReac Type Severity Reaction Status Date / Time No Known Allergies Allergy Verified 11/17/18 19:00 11/17/18 19:01 I have performed a brief in-person evaluation of this patient. The patient presents with a chief complaint of: chest pain with tingling to fingers/ " i feel like I am going to have a seizure". Was seen here yesterday for seizure. Dr Rush notified and recommended coming back to ER. Pertinent physical exam findings: AnOx3 I have ordered the following: EKG The patient will proceed to the ED for further evaluation. Discharge Disposition - Diagnosis Chest pain - Referrals - Patient Instructions - Post Discharge Activity
--- NOTE | 2018-11-17 20:42 | PDOC ---
History of Present Illness - General Chief Complaint: Chest Pain Stated Complaint: CHEST PAIN Time Seen by Provider: 11/17/18 19:00 History Source: Patient - History of Present Illness Initial Comments: 11/17/18 20:38 48 year old male c/o right sided chest pain worse with movement, and having increasing number of seizures. patient reports his seizure is grand mal seizures. reports pain to occipital area and neck after his seizure today.. patient send by PCP Dr. buenrostro for admission for chest pain. + nausea. denies vomiting. PMHX: seizures, HTN, liver disease Past History - Past Medical History Allergies/Adverse Reactions: Allergies Allergy/AdvReac Type Severity Reaction Status Date / Time No Known Allergies Allergy Verified 11/17/18 19:00 Home Medications: Ambulatory Orders Cyclobenzaprine HCl [Flexeril -] 10 mg PO TID 09/03/17 Furosemide [Lasix] 40 mg PO DAILY 09/03/17 Tamsulosin HCl 0.4 mg PO DAILY 09/03/17 Zolpidem Tartrate [Ambien] 5 mg PO HS 09/03/17 oxyCODONE HCL [Roxicodone -] 20 mg PO Q6H 09/03/17 Magnesium Oxide [Mag-Ox -] 400 mg PO BID 30 Days #60 tablet 09/06/17 levETIRAcetam [Keppra Xr -] 1,000 mg PO BID 30 Days #60 tab 09/06/17 metFORMIN HCL [Metformin HCl] 500 mg PO BIDAC #30 tablet 02/20/18 Gabapentin 600 mg PO TID 05/28/18 Potassium Chloride [Klor-Con M20] 20 meq PO DAILY 05/28/18 Spironolactone [Aldactone] 25 mg PO DAILY 05/28/18 Cyclobenzaprine HCl [Flexeril -] 10 mg PO HS #10 tablet 11/16/18 Anemia: No Asthma: No Cancer: No Cardiac Disorders: No CVA: No COPD: No CHF: Yes (on lasix) DVT: No Dementia: No Diabetes: No GI Disorders: No Disorders: Yes (BPH) HTN: No (ON LASIX) Hypercholesterolemia: No Kidney Stones: No Liver Disease: Yes (fatty liver, CIRRHOSIS) Psychiatric Problems: Yes (ANXIETY) Seizures: Yes (alcohol related) Thyroid Disease: No - Surgical History Abdominal Surgery: Yes (LAP BAND 2009/umbilical hernia repaired 2014) Appendectomy: No Cardiac Surgery: No Cholecystectomy: No GI Surgery: Yes (hernia repairX2) Lung Surgery: No Neurologic Surgery: No Orthopedic Surgery: Yes (ARTHROSCOPY LEFT SHOULDER 2012, knees arthroscopy) - Reproductive History Testicular Surgery: No - Immunization History Immunization Up to Date: Yes - Suicide/Smoking/Psychosocial Hx Smoking Status: No Smoking History: Never smoked Have you smoked in the past 12 months: Yes Number of Cigarettes Smoked Daily: 5 Cigars Per Day: 0 'Breaking Loose' booklet given: 02/18/18 Hx Alcohol Use: Yes Drug/Substance Use Hx: No Substance Use Type: Alcohol, Cocaine, Marijuana Hx Substance Use Treatment: Yes ([facility] 06/29/17 to 07/04/17) Review of Systems - Review of Systems Able to Perform ROS?: Yes Is the patient limited Hebrew proficient: No Constitutional: No: Symptoms Reported, See HPI, Chills, Diaphoresis, Fever, Loss of Appetite, Malaise, Night Sweats, Weakness, Weight Stable, Unintentional Wgt. Loss, Unexplained wgt Loss, Other ABD/GI: Yes: Nausea : No: Symptoms Reported, See HPI, Burning, Dysuria, Discharge, Frequency, Flank Pain, Hematuria, Incontinence, Pain, Urgency, Testicular Mass, Testicular Swelling, Lesions, Testicular Pain, Other Integumentary: No: Symptoms Reported, See HPI, Bruising, Change in Color, Change in Hair/Nails, Dryness, Erythema, Flushing, Lesions, Lumps, Pallor, Pruritus, Rash, Sweating, Other Neurological: Yes: Headache, Seizure *Physical Exam - Vital Signs Last Vital Signs Temp Pulse Resp BP Pulse Ox 97.9 F 100 H 18 120/85 100 11/17/18 19:01 11/17/18 19:01 11/17/18 19:01 11/17/18 19:01 11/17/18 19:01 - Physical Exam General Appearance: Yes: Appropriately Dressed Respiratory/Chest: positive: Chest Tender, Lungs Clear, Normal Breath Sounds Cardiovascular: positive: Regular Rhythm, Regular Rate Gastrointestinal/Abdominal: positive: Normal Bowel Sounds, Soft. negative: Tender Musculoskeletal: positive: Vertebral Tenderness (cervical area tenderness) Integumentary: positive: Normal Color, Dry, Warm Neurologic: positive: Fully Oriented, Alert ED Treatment Course - LABORATORY CBC & Chemistry Diagram: 11/17/18 20:45 11/17/18 20:45 Medical Decision Making - Medical Decision Making 11/17/18 20:47 A: seizures; chest pain P: cbc cmp cardiac PCP : Dr. buenrostro neuro: Dr. maldonado chest xray CT head 11/17/18 23:07 patient to be placed on obs under hospitalist team. patient signed out to Dr. thomas. *DC/Admit/Observation/Transfer Diagnosis at time of Disposition: Seizure disorder Chest pain Qualifiers: Chest pain type: unspecified Qualified Code(s): R07.9 - Chest pain, unspecified - Discharge Dispostion Decision to Admit order: Yes - Referrals - Patient Instructions - Post Discharge Activity
[2018-11-17 20:57] LABS: BASO % 0.8 % (0-2.0); EOS % 3.2 % (0-4.5); HEMOGLOBIN 13.6 GM/dL (11.7-16.9); LYMPH % 20.3 % (8-40); MCH 34.6 pg (25.7-33.7); MCHC 34.8 g/dl (32.0-35.9); MEAN CELL VOLUME 99.3 fl (80-96); MEAN PLT VOLUME 7.4 fl (7.5-11.1); MONO % 13.9 % (3.8-10.2); NEUT % 61.8 % (42.8-82.8); PLATELET COUNT 153 K/MM3 (134-434); RBC 3.93 M/mm3 (4.00-5.60); RDW 14.5 % (11.9-15.9)
[2018-11-17 21:16] LABS: ALBUMIN 3.2 g/dl (3.4-5.0); BLOOD UREA NITROGEN 3.8 mg/dL (7-18); CALCIUM 8.1 mg/dL (8.5-10.1); CREATININE 0.6 mg/dL (0.55-1.3); POTASSIUM 3.2 mmol/L (3.5-5.1); TOT PROT 7.7 g/dl (6.4-8.2)
[2018-11-17 21:18] LABS: N-TERMINAL BNP 398.6 pg/ml (5-125)
[2018-11-17 21:50] LABS: EPI CELLS 0.1 /HPF (0-5/HPF); HYALINE CASTS 0 /lpf (0-8); PH,URINE 7.5 (5.0-8.0); URINE APPEARANCE CLEAR; URINE BILIRUBIN NEGATIVE (NEGATIVE); URINE COLOR YELLOW; URINE GLUCOSE (UA) NEGATIVE (NEGATIVE); URINE KETONE NEGATIVE (NEGATIVE); URINE LEUK ESTERASE NEGATIVE (NEGATIVE); URINE NITRITE NEGATIVE (NEGATIVE); URINE PROTEIN NEGATIVE (NEGATIVE); URINE UROBILINOGEN 4.0 E.U/dl mg/dL (0.2-1.0); URINE WBC 0 /hpf (0-5)
[2018-11-17 22:08] LABS: COCAINE, UR NEGATIVE ng/ml (CUTOFF=300); METHADONE, UR NEGATIVE ng/ml (CUTOFF=300); PHENCYCLIDINE,URINE NEGATIVE ng/ml (CUTOFF=25); URINE AMPHETAMINES NEGATIVE ng/ml (CUTOFF=500); URINE BARBITURATES NEGATIVE ng/ml (CUTOFF=200); URINE BENZODIAZEPINES NEGATIVE ng/ml (CUTOFF=200)
[2018-11-17 22:09] LABS: OPIATES, URI POSITIVE ng/ml (CUTOFF=300)
[2018-11-17] MEDS ORDERED: POTASSIUM CHLORIDE TABS 20 MEQ TABLET.ER (FP) PO ONE ×2 (22:17→22:51)
[2018-11-18] MEDS ORDERED: chlordiazePOXIDE HCL 10 MG CAPSULE PO PRN (00:19)
[2018-11-18] MEDS ORDERED: chlordiazePOXIDE HCL 25 MG CAPSULE PO ONE (00:19)
[2018-11-18] MEDS ORDERED: FOLIC ACID INJECTION - 1 MG, THIAMINE HCL 100 MG, MULTIVIT INJECTION ADULT 10 ML in SOD... IVPB ONE (00:21)
--- NOTE | 2018-11-18 00:43 | PN ---
Teaching Attending Note Name of Resident: Jo Murphy ATTENDING PHYSICIAN STATEMENT I saw and evaluated the patient. I reviewed the resident's note and discussed the case with the resident. I agree with the resident's findings and plan as documented. SUBJECTIVE: This is a 48 year old man with a history of seizures, alcohol abuse , cirrhosis, HTN who comes to the ED complaining of right sided chest pain. The pain is worse with inspiration and movement and worse when he presses on his chest. Pain started yesterday after he had a seizure. He was seen in the ED yesterday for back and right knee pain. He says he drank the day prior to the seizure. He has had seizures in the past attributed to alcohol withdrawal. He denies drinking since the seizure. OBJECTIVE: Vital Signs Period Temp Pulse Resp BP Sys/Sarmiento Pulse Ox Last 24 Hr 97.9 F 100 18 120/85 100 HEART: S1S2, tachycardic LUNGS: Clear with poor effort CHEST: (+) right-sided chest wall tenderness to palpation ABDOMEN: Obese, soft, non-tender, non-distended, normal BS EXTREMITIES: No edema Laboratory Tests 11/17/18 11/17/18 11/17/18 20:45 20:45 20:45 WBC 5.0 RBC 3.93 L Hgb 13.6 Hct 39.0 MCV 99.3 H MCH 34.6 H MCHC 34.8 RDW 14.5 Plt Count 153 MPV 7.4 L D Absolute Neuts (auto) 3.1 Neutrophils % 61.8 D Lymphocytes % 20.3 D Monocytes % 13.9 H Eosinophils % 3.2 Basophils % 0.8 Nucleated RBC % 0 Sodium 137 Potassium 3.2 L Chloride 98 Carbon Dioxide 33 H Anion Gap 5 L BUN 3.8 L Creatinine 0.6 Est GFR (CKD-EPI)AfAm 137.80 Est GFR (CKD-EPI)NonAf 118.89 Random Glucose 90 Calcium 8.1 L Total Bilirubin 2.0 H AST 94 H ALT 58 Alkaline Phosphatase 126 H Creatine Kinase 75 Troponin I < 0.02 B-Natriuretic Peptide 398.6 H Total Protein 7.7 Albumin 3.2 L Lipase 287 Urine Color Urine Appearance Urine pH Ur Specific [place] Urine Protein Urine Glucose (UA) Urine Ketones Urine Blood Urine Nitrite Urine Bilirubin Urine Urobilinogen Ur Leukocyte Esterase Urine WBC (Auto) Urine Casts (Auto) U Epithel Cells (Auto) Urine Bacteria (Auto) Opiates Screen Methadone Screen Barbiturate Screen Phencyclidine Screen Ur Amphetamines Screen MDMA (Ecstasy) Screen Benzodiazepines Screen Cocaine Screen U Marijuana (THC) Screen Alcohol, Quantitative 69.0 H 11/17/18 11/17/18 21:25 21:25 WBC RBC Hgb Hct MCV MCH MCHC RDW Plt Count MPV Absolute Neuts (auto) Neutrophils % Lymphocytes % Monocytes % Eosinophils % Basophils % Nucleated RBC % Sodium Potassium Chloride Carbon Dioxide Anion Gap BUN Creatinine Est GFR (CKD-EPI)AfAm Est GFR (CKD-EPI)NonAf Random Glucose Calcium Total Bilirubin AST ALT Alkaline Phosphatase Creatine Kinase Troponin I B-Natriuretic Peptide Total Protein Albumin Lipase Urine Color Yellow Urine Appearance Clear Urine pH 7.5 D Ur Specific [place] 1.012 Urine Protein Negative Urine Glucose (UA) Negative Urine Ketones Negative Urine Blood 2+ H Urine Nitrite Negative Urine Bilirubin Negative Urine Urobilinogen 4.0 e.u/dl Ur Leukocyte Esterase Negative Urine WBC (Auto) 0 Urine Casts (Auto) 0 U Epithel Cells (Auto) 0.1 Urine Bacteria (Auto) 1.0 Opiates Screen Positive A* Methadone Screen Negative Barbiturate Screen Negative Phencyclidine Screen Negative Ur Amphetamines Screen Negative MDMA (Ecstasy) Screen Negative Benzodiazepines Screen Negative Cocaine Screen Negative U Marijuana (THC) Screen Positive A* Alcohol, Quantitative Home Medications Medication Instructions Recorded Cyclobenzaprine HCl [Flexeril -] 10 mg PO TID 09/03/17 Furosemide [Lasix] 40 mg PO DAILY 09/03/17 Tamsulosin HCl 0.4 mg PO DAILY 09/03/17 Zolpidem Tartrate [Ambien] 5 mg PO HS 09/03/17 oxyCODONE HCL [Roxicodone -] 20 mg PO Q6H 09/03/17 Magnesium Oxide [Mag-Ox -] 400 mg PO BID 30 Days #60 tablet 09/06/17 levETIRAcetam [Keppra Xr -] 1,000 mg PO BID 30 Days #60 tab 09/06/17 metFORMIN HCL [Metformin HCl] 500 mg PO BIDAC #30 tablet 02/20/18 Gabapentin 600 mg PO TID 05/28/18 Potassium Chloride [Klor-Con M20] 20 meq PO DAILY 05/28/18 Spironolactone [Aldactone] 25 mg PO DAILY 05/28/18 Cyclobenzaprine HCl [Flexeril -] 10 mg PO HS #10 tablet 11/16/18 ASSESSMENT AND PLAN: This is a 48 year old man with a history of seizures, alcohol abuse, cirrhosis, HTN who presented to the ED with right sided chest pain after a seizure. 1. Alcohol-induced seizure - Continue Keppra - Advised to abstain from alcohol use - he is interested in quitting but is refusing to go to detox 2. Alcohol intoxication/continuous alcohol dependence - Start Librium detox - Banana bag x 1 then start oral multivitamin, thiamine, folic acid - Detox consult 3. Hypokalemia - Replete potassium 4. Musculoskeletal chest pain - Troponin negative - Incentive spirometer - Pain control 5. Alcoholic cirrhosis - Continue Lasix, Aldactone 6. HTN - Continue Aldactone, Lasix 7. Peripheral neuropathy - Continue Neurontin
--- NOTE | 2018-11-18 00:51 | HP ---
CHIEF COMPLAINT: Seizure PCP: Dr. Rush Neurologist: Dr. Dyer HISTORY OF PRESENT ILLNESS: Patient is a 48 year old male with PMH of seizures, chronic alcohol use, liver disease, and BPH who presents s/p seizure one day ago. Patient reports that yesterday morning he was going about his day when he suddenly began seizing. He does not remember how long he was seizing for and woke up on the ground. Seizure was unwitnessed. He denies any incontinence, biting his tongue, or hitting his head. Patient states that his last seizure was 3-4 months ago. He is on Keppra 1,000mg BID and reports being compliant with his meds. His seizures occur once every few months and are typically triggered with alcohol use. He typically drinks a 6-pack of beer and several shots of whiskey a few times a week. His last alcohol consumption was 2 days ago. Patient also presents with right-sided chest pain that began after his seizure. He believes that he hit his chest when he fell. Chest pain is reproducible and exacerbated with movement. He denies having chest pain prior to the seizure and denies any associated palpitations, radiation of pain, diaphoresis, or dyspnea. Denies fever, nausea, vomiting, abd pain, tremors or hallucinations. ER course was notable for: (1) CT head: neg for infarction, hemorrhage, fracture (2) CXR and rib XR: no acute fractures (3) EKG: NSR Recent Travel: denies PAST MEDICAL HISTORY: Seizures Chronic alcohol use Liver disease BPH PAST SURGICAL HISTORY: Hernia repair x2 Shoulder dislocation surgery Knee surgery x3 Social History: Smoking: denies Alcohol: frequent Drugs: denies Family History: Grandmother: [place] Grandfather: lung [place] Allergies No Known Allergies Allergy (Verified 11/17/18 19:00) HOME MEDICATIONS: Home Medications Medication Instructions Recorded Cyclobenzaprine HCl [Flexeril -] 10 mg PO TID 09/03/17 Furosemide [Lasix] 40 mg PO DAILY 09/03/17 Tamsulosin HCl 0.4 mg PO DAILY 09/03/17 Zolpidem Tartrate [Ambien] 5 mg PO HS 09/03/17 oxyCODONE HCL [Roxicodone -] 20 mg PO Q6H 09/03/17 Magnesium Oxide [Mag-Ox -] 400 mg PO BID 30 Days #60 tablet 09/06/17 levETIRAcetam [Keppra Xr -] 1,000 mg PO BID 30 Days #60 tab 09/06/17 Gabapentin 600 mg PO TID 05/28/18 Potassium Chloride [Klor-Con M20] 20 meq PO DAILY 05/28/18 Spironolactone [Aldactone] 25 mg PO DAILY 05/28/18 Cyclobenzaprine HCl [Flexeril -] 10 mg PO HS #10 tablet 11/16/18 REVIEW OF SYSTEMS CONSTITUTIONAL: Absent: fever, chills, diaphoresis, generalized weakness, malaise, loss of appetite, weight change HEENT: Absent: rhinorrhea, nasal congestion, throat pain, throat swelling, difficulty swallowing, mouth swelling, ear pain, eye pain, visual changes CARDIOVASCULAR: chest pain Absent: syncope, palpitations, irregular heart rate, lightheadedness, peripheral edema RESPIRATORY: Absent: cough, shortness of breath, dyspnea with exertion, orthopnea, wheezing, stridor, hemoptysis GASTROINTESTINAL: Absent: abdominal pain, abdominal distension, nausea, vomiting, diarrhea, constipation, melena, hematochezia GENITOURINARY: Absent: dysuria, frequency, urgency, hesitancy, hematuria, flank pain, genital pain MUSCULOSKELETAL: myalgia Absent: arthralgia, joint swelling, back pain, neck pain SKIN: Absent: rash, itching, pallor HEMATOLOGIC/IMMUNOLOGIC: Absent: easy bleeding, easy bruising, lymphadenopathy, frequent infections ENDOCRINE: Absent: unexplained weight gain, unexplained weight loss, heat intolerance, cold intolerance NEUROLOGIC: seizure Absent: headache, focal weakness or paresthesias, dizziness, unsteady gait, mental status changes, bladder or bowel incontinence PSYCHIATRIC: Absent: anxiety, depression, suicidal or homicidal ideation, hallucinations. PHYSICAL EXAMINATION Vital Signs - 24 hr 11/17/18 19:01 Temperature 97.9 F Pulse Rate 100 H Respiratory 18 Rate Blood Pressure 120/85 O2 Sat by Pulse 100 Oximetry (%) GENERAL: Awake, alert, and fully oriented, in no acute distress. HEAD: Normal with no signs of trauma. EYES: Pupils equal, round and reactive to light, extraocular movements intact, sclera anicteric, conjunctiva clear. No lid lag. EARS, NOSE, THROAT: Ears normal, nares patent, oropharynx clear without exudates. Moist mucous membranes. NECK: Normal range of motion, supple without lymphadenopathy, JVD, or masses. LUNGS: Breath sounds equal, clear to auscultation bilaterally. No wheezes, and no crackles. No accessory muscle use. HEART: Regular rate and rhythm, normal S1 and S2 without murmur, rub or gallop. ABDOMEN: Distended, soft, nontender, normoactive bowel sounds, no guarding, no rebound, no masses. No hepatomegaly or splenomegaly. MUSCULOSKELETAL: Normal range of motion at all joints. No bony deformities or tenderness. No CVA tenderness. Right chest tender to palpation. UPPER EXTREMITIES: 2+ pulses, warm, well-perfused. No cyanosis. No clubbing. No peripheral edema. Decreased ROM in RUE due to pain LOWER EXTREMITIES: 2+ pulses, warm, well-perfused. No calf tenderness. No peripheral edema. NEUROLOGICAL: Cranial nerves II-XII intact. Normal speech. Normal gait. PSYCHIATRIC: Cooperative. Good eye contact. Appropriate mood and affect. SKIN: Warm, dry, normal turgor, no rashes or lesions noted, normal capillary refill. Laboratory Results - last 24 hr CBC, BMP 11/17/18 20:45 11/17/18 20:45 Urine Test Results Urine Color Yellow Urine Appearance Clear Urine pH 7.5 (5.0-8.0) D Ur Specific [place] 1.012 (1.010-1.035) Urine Protein Negative (NEGATIVE) Urine Glucose (UA) Negative (NEGATIVE) Urine Ketones Negative (NEGATIVE) Urine Blood 2+ (NEGATIVE) H Urine Nitrite Negative (NEGATIVE) Urine Bilirubin Negative (NEGATIVE) Ur Leukocyte Esterase Negative (NEGATIVE) Hepatic Panel Total Bilirubin 2.0 mg/dL (0.2-1) H AST 94 U/L (15-37) H ALT 58 U/L (13-61) Alkaline Phosphatase 126 U/L (45-117) H Albumin 3.2 g/dl (3.4-5.0) L ASSESSMENT/PLAN: Patient is a 48 year old male with PMH of seizures, chronic alcohol use, liver disease, and BPH who presents s/p seizure one day ago #Seizure Likely alcohol-induced given pt's history Will start librium detox protocol. Pt states he is uninterested in going to detox center Monitor for withdrawal symptoms Giving 1x banana bag IV and cont with po thiamine and folate daily Cont home meds: Keppra 1,000mg po BID #R/o ACS Trops neg x2 EKG: NSR, no ischemic changes Chest pain is reproducible, likely 2/2 fall Will cont to monitor for sx Echo (09/04/17): normal, EF: 60% #Liver disease T Bili: 2.0, alk phos: 126, AST: 94 (reviewed and trended past labs, chronic) MRI abd (05/17/17): cirrhotic liver, mild splenomegaly Cont home meds: lasix 40mg daily, aldactone 25mg daily #FEN IV NS @ 100ml/hr Hypokalemia on admission: 3.2, repleted in ED with 40meq K-dur #DVT ppx Heparin SQ #Dispo Monitor in med-surg Encourage detox/rehab center on discharge Visit type - Emergency Visit Emergency Visit: Yes ED Registration Date: 11/17/18 Care time: The patient presented to the Emergency Department on the above date and was hospitalized for further evaluation of their emergent condition. - New Patient This patient is new to me today: Yes Date on this admission: 11/18/18 - Critical Care Critical Care patient: No ATTENDING PHYSICIAN STATEMENT I saw and evaluated the patient. I reviewed the resident's note and discussed the case with the resident. I agree with the resident's findings and plan as documented. SUBJECTIVE: OBJECTIVE: ASSESSMENT AND PLAN:
[2018-11-18] MEDS ORDERED: ZOLPIDEM TARTRATE 5 MG TABLET PO ONE (00:59)
[2018-11-18] MEDS ORDERED: ZOLPIDEM TARTRATE 5 MG TABLET ONE (02:02)
[2018-11-18] MEDS: SODIUM CHLORIDE 1,000 ML IV SCH (04:56)
[2018-11-18] MEDS ORDERED: chlordiazePOXIDE HCL 25 MG CAPSULE ONE (05:06)
[2018-11-18] MEDS: chlordiazePOXIDE HCL 25 MG CAPSULE PO SCH ×3 (05:10→21:00)
[2018-11-18] MEDS ORDERED: CYCLOBENZAPRINE HCL 10 MG TABLET (FP) ONE (06:02)
[2018-11-18] MEDS: CYCLOBENZAPRINE HCL 10 MG TABLET (FP) PO SCH ×3 (06:04→22:15)
[2018-11-18] MEDS: HEPARIN NA (PORCINE) 5,000 UNITS/ML 1ML VIAL SQ SCH ×3 (06:04→22:13)
[2018-11-18] MEDS: GABAPENTIN 300 MG CAPSULE (FP) PO SCH ×3 (06:16→22:14)
[2018-11-18 06:56] LABS: BASO % 0.6 % (0-2.0); EOS % 4.6 % (0-4.5); HEMATOCRIT 36.7 % (35.4-49); HEMOGLOBIN 12.7 GM/dL (11.7-16.9); LYMPH % 24.7 % (8-40); MCH 34.9 pg (25.7-33.7); MCHC 34.7 g/dl (32.0-35.9); MEAN CELL VOLUME 100.5 fl (80-96); MEAN PLT VOLUME 7.6 fl (7.5-11.1); MONO % 16.4 % (3.8-10.2); NEUT % 53.7 % (42.8-82.8); PLATELET COUNT 128 K/MM3 (134-434); RBC 3.65 M/mm3 (4.00-5.60); RDW 14.6 % (11.9-15.9)
[2018-11-18 07:26] LABS: ALBUMIN 2.7 g/dl (3.4-5.0); BILIRUBIN,TOTAL 2.4 mg/dL (0.2-1); BLOOD UREA NITROGEN 6.2 mg/dL (7-18); CALCIUM 7.9 mg/dL (8.5-10.1); CREATININE 0.5 mg/dL (0.55-1.3); MAGNESIUM 1.7 mg/dL (1.8-2.4); PHOSPHOROUS 2.9 mg/dL (2.5-4.9); POTASSIUM 3.4 mmol/L (3.5-5.1); TOT PROT 6.8 g/dl (6.4-8.2)
[2018-11-18] MEDS ORDERED: POTASSIUM CHLORIDE TABS 20 MEQ TABLET.ER (FP) PO ONE ×2 (07:54→09:54)
--- NOTE | 2018-11-18 07:54 | PN ---
Physical Exam: SUBJECTIVE: Patient seen and examined at bed side , feeling betetr , no withdrawal symptoms , denies any fever or chills, report some right side chest pain. OBJECTIVE: Vital Signs Period Temp Pulse Resp BP Sys/Sarmiento Pulse Ox Last 24 Hr 97.9 F-98.7 F 67-100 18-18 120-140/85-94 97-100 GENERAL: AAOx3 in NAD HEAD: NC/AT EYES: EOMI, Conjunctiva clear, sclera anicteric ENT: moist mucous membrane NECK: Supple, no JVD LUNGS: CTA B/L, no crackles no wheezing no accessory muscle use. HEART: RRR, NSR, normal s1, s2, no M/R/G ABDOMEN: Soft, ND, NT, +BS 4 Q, no CVA Tenderness LOWER EXTREMITIES: no edema, +2DP pulse, NEUROLOGICAL: No focal deficit. Normal speech. gait not observed. PSYCHIATRIC: Cooperative. Good eye contact. Appropriate mood and affect. SKIN: Warm, dry, Laboratory Results - last 24 hr 11/17/18 11/17/18 11/17/18 20:45 20:45 20:45 WBC 5.0 RBC 3.93 L Hgb 13.6 Hct 39.0 MCV 99.3 H MCH 34.6 H MCHC 34.8 RDW 14.5 Plt Count 153 MPV 7.4 L D Absolute Neuts (auto) 3.1 Neutrophils % 61.8 D Lymphocytes % 20.3 D Monocytes % 13.9 H Eosinophils % 3.2 Basophils % 0.8 Nucleated RBC % 0 Sodium 137 Potassium 3.2 L Chloride 98 Carbon Dioxide 33 H Anion Gap 5 L BUN 3.8 L Creatinine 0.6 Est GFR (CKD-EPI)AfAm 137.80 Est GFR (CKD-EPI)NonAf 118.89 Random Glucose 90 Calcium 8.1 L Phosphorus Magnesium Total Bilirubin 2.0 H AST 94 H ALT 58 Alkaline Phosphatase 126 H Creatine Kinase 75 Troponin I < 0.02 B-Natriuretic Peptide 398.6 H Total Protein 7.7 Albumin 3.2 L Lipase 287 Urine Color Urine Appearance Urine pH Ur Specific [place] Urine Protein Urine Glucose (UA) Urine Ketones Urine Blood Urine Nitrite Urine Bilirubin Urine Urobilinogen Ur Leukocyte Esterase Urine WBC (Auto) Urine Casts (Auto) U Epithel Cells (Auto) Urine Bacteria (Auto) Opiates Screen Methadone Screen Barbiturate Screen Phencyclidine Screen Ur Amphetamines Screen MDMA (Ecstasy) Screen Benzodiazepines Screen Cocaine Screen U Marijuana (THC) Screen Alcohol, Quantitative 69.0 H 11/17/18 11/17/18 11/18/18 21:25 21:25 01:30 WBC RBC Hgb Hct MCV MCH MCHC RDW Plt Count MPV Absolute Neuts (auto) Neutrophils % Lymphocytes % Monocytes % Eosinophils % Basophils % Nucleated RBC % Sodium Potassium Chloride Carbon Dioxide Anion Gap BUN Creatinine Est GFR (CKD-EPI)AfAm Est GFR (CKD-EPI)NonAf Random Glucose Calcium Phosphorus Magnesium Total Bilirubin AST ALT Alkaline Phosphatase Creatine Kinase Troponin I < 0.02 B-Natriuretic Peptide Total Protein Albumin Lipase Urine Color Yellow Urine Appearance Clear Urine pH 7.5 D Ur Specific [place] 1.012 Urine Protein Negative Urine Glucose (UA) Negative Urine Ketones Negative Urine Blood 2+ H Urine Nitrite Negative Urine Bilirubin Negative Urine Urobilinogen 4.0 e.u/dl Ur Leukocyte Esterase Negative Urine WBC (Auto) 0 Urine Casts (Auto) 0 U Epithel Cells (Auto) 0.1 Urine Bacteria (Auto) 1.0 Opiates Screen Positive A* Methadone Screen Negative Barbiturate Screen Negative Phencyclidine Screen Negative Ur Amphetamines Screen Negative MDMA (Ecstasy) Screen Negative Benzodiazepines Screen Negative Cocaine Screen Negative U Marijuana (THC) Screen Positive A* Alcohol, Quantitative 11/18/18 11/18/18 06:00 06:00 WBC 4.0 RBC 3.65 L Hgb 12.7 Hct 36.7 MCV 100.5 H MCH 34.9 H MCHC 34.7 RDW 14.6 Plt Count 128 L MPV 7.6 Absolute Neuts (auto) 2.2 Neutrophils % 53.7 Lymphocytes % 24.7 D Monocytes % 16.4 H Eosinophils % 4.6 H Basophils % 0.6 Nucleated RBC % 0 Sodium 139 Potassium 3.4 L Chloride 103 Carbon Dioxide 28 Anion Gap 8 BUN 6.2 L Creatinine 0.5 L Est GFR (CKD-EPI)AfAm 148.52 Est GFR (CKD-EPI)NonAf 128.14 Random Glucose 91 Calcium 7.9 L Phosphorus 2.9 Magnesium 1.7 L Total Bilirubin 2.4 H AST 74 H ALT 46 Alkaline Phosphatase 124 H Creatine Kinase Troponin I B-Natriuretic Peptide Total Protein 6.8 Albumin 2.7 L Lipase Urine Color Urine Appearance Urine pH Ur Specific [place] Urine Protein Urine Glucose (UA) Urine Ketones Urine Blood Urine Nitrite Urine Bilirubin Urine Urobilinogen Ur Leukocyte Esterase Urine WBC (Auto) Urine Casts (Auto) U Epithel Cells (Auto) Urine Bacteria (Auto) Opiates Screen Methadone Screen Barbiturate Screen Phencyclidine Screen Ur Amphetamines Screen MDMA (Ecstasy) Screen Benzodiazepines Screen Cocaine Screen U Marijuana (THC) Screen Alcohol, Quantitative Active Medications Generic Name Dose Route Start Last Admin Trade Name Freq PRN Reason Stop Dose Admin Chlordiazepoxide HCl 10 mg 11/20/18 00:00 Librium - PO 11/20/18 23:59 Q12H PRN Signs/symptoms of Withdrawal Chlordiazepoxide HCl 10 mg 11/18/18 00:19 Librium - PO 11/19/18 23:59 Q8H PRN Signs/symptoms of Withdrawal Chlordiazepoxide HCl 25 mg 11/18/18 05:00 11/18/18 05:10 Librium - PO 11/18/18 21:01 25 mg Q8H LALITHA Administration Chlordiazepoxide HCl 15 mg 11/19/18 05:00 Librium - PO 11/19/18 21:01 Q8H LALITHA Chlordiazepoxide HCl 10 mg 11/20/18 05:00 Librium - PO 11/20/18 21:01 Q8H LALITHA Chlordiazepoxide HCl 10 mg 11/21/18 05:00 Librium - PO 11/21/18 05:01 ONCE ONE Cyclobenzaprine HCl 10 mg 11/18/18 06:00 11/18/18 06:04 Flexeril - PO 10 mg TID [facility] Administration Folic Acid 1 mg 11/18/18 10:00 Folic Acid - PO DAILY LALITHA Furosemide 40 mg 11/18/18 10:00 Lasix - PO DAILY LALITHA Gabapentin 600 mg 11/18/18 06:00 11/18/18 06:16 Neurontin - PO 600 mg TID LALITHA Administration Heparin Sodium (Porcine) 5,000 unit 11/18/18 06:00 11/18/18 06:04 Heparin - SQ Not Given TID LALITHA Folic Acid 1 mg/ Thiamine HCl 1,000 mls @ 125 mls/hr 11/18/18 00:21 11/18/18 01:36 100 mg/ Multivitamins/Minerals IVPB 11/18/18 08:20 125 mls/hr 10 ml/ Sodium Chloride ONCE ONE Administration Sodium Chloride 1,000 mls @ 100 mls/hr 11/18/18 04:00 11/18/18 04:56 Normal Saline - IV 100 mls/hr ASDIR LALITHA Administration Levetiracetam 1,000 mg 11/18/18 10:00 Keppra Xr - PO BID LALITHA Magnesium Sulfate 2 gm 11/18/18 07:53 Magnesium Sulfate IVPB 11/18/18 07:54 ONCE ONE Spironolactone 25 mg 11/18/18 10:00 Aldactone - PO DAILY LALITHA Tamsulosin HCl 0.4 mg 11/18/18 08:30 Flomax - PO DAILY@0830 LALITHA Thiamine HCl 100 mg 11/18/18 10:00 Vitamin B1 - PO DAILY [facility] CBC, BMP 11/18/18 06:00 11/18/18 06:00 ASSESSMENT/PLAN: Patient is a 48 year old male with PMH of seizures, chronic alcohol use, liver disease, and BPH who presents s/p seizure one day ago #Seizure * Likely alcohol-induced given pt's history * Will start librium detox protocol. Pt states he is uninterested in going to detox center * Monitor for withdrawal symptoms * Giving 1x banana bag IV and cont with po thiamine and folate daily * consult neurology Dr Zuñiga increased Keppra to 1250 BID , check Keppra level , * EEG * Neurocheck Q 1hr #R/o ACS unlikley * Trops neg x2,EKG: NSR, no ischemic changes, Chest pain is reproducible, likely 2/2 fall,Will cont to monitor for sx * Echo (09/04/17): normal, EF: 60% # Chronic back pain resume home meds Oxy 20 QID , Gabapentin and flexeril # Insomnia on Ambien HS # BPH on Flomax #Liver disease * T Bili: 2.0, alk phos: 126, AST: 94 (reviewed and trended past labs, chronic) * MRI abd (05/17/17): cirrhotic liver, mild splenomegaly * Cont home meds: lasix 40mg daily, aldactone 25mg daily * trend liver enzyme , follow up out pt #FEN * IV NS @ 100ml/hr * Hypokalemia on admission: 3.2, repleted in ED with 40meq K-dur * regular diet #DVT ppx * Heparin SQ #Dispo * Monitor in observation * pt refusing detox Visit type - Emergency Visit Emergency Visit: Yes ED Registration Date: 11/18/18 Care time: The patient presented to the Emergency Department on the above date and was hospitalized for further evaluation of their emergent condition. - New Patient This patient is new to me today: Yes Date on this admission: 11/18/18 - Critical Care Critical Care patient: No - Discharge Referral Referred to [facility] Med [facility] No ATTENDING PHYSICIAN STATEMENT I saw and evaluated the patient. I reviewed the resident's note and discussed the case with the resident. I agree with the resident's findings and plan as documented. SUBJECTIVE: OBJECTIVE: ASSESSMENT AND PLAN:
[2018-11-18] MEDS ORDERED: MAGNESIUM SULF 50% (8.12 MEQ/2 ML-1 GM VIAL) IVPB ONE (08:00)
--- NOTE | 2018-11-18 08:41 | PN ---
Teaching Attending Note Name of Resident: Corey Henderson ATTENDING PHYSICIAN STATEMENT I saw and evaluated the patient. I reviewed the resident's note and discussed the case with the resident. I agree with the resident's findings and plan as documented. SUBJECTIVE: Mr Blount is without complaint today. Chest pain currently resolved. No sob or n/v. OBJECTIVE: Last Vital Signs Temp Pulse Resp BP Pulse Ox 37.1 C 67 18 140/94 97 11/18/18 06:28 11/18/18 06:28 11/18/18 06:28 11/18/18 06:28 11/18/18 06:28 Gen: nad Pulm: ctab w/o w/r/r CV: rrr w/o m/r/g Abd: +bs, s/nt/nd Ext: no c/c/e CBC, BMP 11/18/18 06:00 11/18/18 06:00 ASSESSMENT AND PLAN: -await neurology recommendations -plan for discharge home after seen by neurology Problem List - Problems (1) Chest pain Assessment/Plan: -patient has right sided chest pain that was reproducible -currently improved -cardiac enzymes negative -EKG reviewed and unchanged, no signs of ACS -telemetry NSR -low suspicion for cardiac cause of chest pain -no further work up needed Code(s): R07.9 - CHEST PAIN, UNSPECIFIED Qualifiers: Chest pain type: other chest pain Qualified Code(s): R07.89 - Other chest pain; R07.8 - Other chest pain (2) Seizure disorder Assessment/Plan: -patient says he had a seizure -states that he had it after drinking -will consult neurology -suspect no further work up is needed Code(s): G40.909 - EPILEPSY, UNSP, NOT INTRACTABLE, WITHOUT STATUS EPILEPTICUS (3) Cannabis dependence Assessment/Plan: -noted Code(s): F12.20 - CANNABIS DEPENDENCE, UNCOMPLICATED (4) Hypokalemia Assessment/Plan: -replace Code(s): E87.6 - HYPOKALEMIA (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
[2018-11-18] MEDS ORDERED: TAMSULOSIN HCL 0.4 MG CAP ONE (09:54)
[2018-11-18] MEDS ORDERED: MAGNESIUM 1GM/D5W - 2 GM/200 ML IVPB IVPB ONE (09:54)
[2018-11-18] MEDS ORDERED: levETIRAcetam XR 500 MG TAB PO SCH ×2 (10:00→17:00)
[2018-11-18] MEDS: TAMSULOSIN HCL 0.4 MG CAP PO SCH (10:02)
[2018-11-18] MEDS: SPIRONOLACTONE 25 MG TABLET (FP) PO SCH (10:34)
[2018-11-18] MEDS: THIAMINE HCL 100 MG TABLET (FP) PO SCH (10:35)
[2018-11-18] MEDS: FUROSEMIDE 40 MG TABLET (FP) PO SCH (10:35)
[2018-11-18] MEDS: FOLIC ACID 1 MG TABLET (FP) PO SCH (10:35)
[2018-11-18] MEDS ORDERED: oxyCODONE HCL 5 MG TABLET PO PRN (11:07)
[2018-11-18] MEDS ORDERED: ACETAMINOPHEN 325 MG TABLET (FP) PO PRN (11:08)
--- NOTE | 2018-11-18 13:33 | EKG ---
Test Reason : Blood Pressure : / mmHG Vent. Rate : 080 BPM Atrial Rate : 080 BPM P-R Int : 156 ms QRS Dur : 100 ms QT Int : 428 ms P-R-T Axes : 057 057 050 degrees QTc Int : 493 ms NORMAL SINUS RHYTHM PROLONGED QT ABNORMAL ECG WHEN COMPARED WITH ECG OF 18-MAY-2018 07:17, NO SIGNIFICANT CHANGE WAS FOUND Confirmed by JESSICA PEARSON MD ([id number]) on 11/18/2018 1:33:41 PM Referred By: Confirmed By:JESSICA PEARSON MD
--- NOTE | 2018-11-18 13:52 | CON.NEURO ---
Consult Consult Specialty:: Philip Referred by:: ER - History of Present Illness History of Present Illness: 48-year-old right-handed man with present medical history significant for Chronic pain Bronchial asthma Epilepsy High cholesterol Alcohol Usage Presents to the hospital for neurological evaluation after he had seizure-like activity. Frequency of the seizure is once every few months trigger by alcohol usage No report of any recent travel no blurry vision or double vision. 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 (questionable vs pseudoseizures ) Cardio/Vascular: Yes: HTN Pulmonary: Yes: Sleep Apnea Hepatobiliary: Yes: Cirrhosis Psych: Yes: Addictions (alcohol) Musculoskeletal: Yes: Chronic low back pain - Past Surgical History Past Surgical History: Yes: Arthrosocopy (left shoulder, right knee), Bariatric Surgery (gastric band) - Alcohol/Substance Use Hx Alcohol Use: Yes Number of Drinks Daily: 5 History of Substance Use: reports: None Date of Last Use: 03/24/17 - Smoking History Smoking history: Never smoked Have you smoked in the past 12 months: Yes Aproximately how many cigarettes per day: 5 - Social History Usual Living Arrangement: With Parent (mother) ADL: Independent 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 of Recent Travel: No Home Medications - Allergies Allergies/Adverse Reactions: Allergies Allergy/AdvReac Type Severity Reaction Status Date / Time No Known Allergies Allergy Verified 11/17/18 19:00 - Home Medications Home Medications: Ambulatory Orders Cyclobenzaprine HCl [Flexeril -] 10 mg PO TID 09/03/17 Furosemide [Lasix] 40 mg PO DAILY 09/03/17 Tamsulosin HCl 0.4 mg PO DAILY 09/03/17 Zolpidem Tartrate [Ambien] 5 mg PO HS 09/03/17 oxyCODONE HCL [Roxicodone -] 20 mg PO Q6H 09/03/17 Magnesium Oxide [Mag-Ox -] 400 mg PO BID 30 Days #60 tablet 09/06/17 levETIRAcetam [Keppra Xr -] 1,000 mg PO BID 30 Days #60 tab 09/06/17 metFORMIN HCL [Metformin HCl] 500 mg PO BIDAC #30 tablet 02/20/18 Gabapentin 600 mg PO TID 05/28/18 Potassium Chloride [Klor-Con M20] 20 meq PO DAILY 05/28/18 Spironolactone [Aldactone] 25 mg PO DAILY 05/28/18 Cyclobenzaprine HCl [Flexeril -] 10 mg PO HS #10 tablet 11/16/18 Duloxetine HCl 30 mg PO DAILY 11/18/18 Ergocalciferol (Vitamin D2) [Vitamin D2] 50,000 unit PO WEEKLY 11/18/18 Family Disease History - Family Disease History Family Disease History: Other: Father (Alive: 65 alcoholic), Mother (Alive: 62: healthy), Brother (Alive: Healthy), Sister (Alive: Healthy), Son (Healthy - age 16), Daughter (Healthy - age 23) Review of Systems - Review of Systems Constitutional: reports: No Symptoms Eyes: reports: No Symptoms HENT: reports: No Symptoms Neurological: reports: Change in Speech, Headache, Incoordination, Numbness Physical Exam-Neuro Vital Signs: Vital Signs Temperature 98.2 F 11/18/18 13:02 Pulse Rate 82 11/18/18 13:02 Respiratory Rate 18 11/18/18 10:45 Blood Pressure 143/102 H 11/18/18 13:02 O2 Sat by Pulse Oximetry (%) 99 11/18/18 13:02 Constitutional: Yes: Well Nourished Neck: Yes: WNL Labs: CBC, BMP 11/18/18 06:00 11/18/18 06:00 - Neuro Exam Level Of Consciousness: Yes: Oriented to Person, Oriented to Place, Oriented to Time Eyes: Yes: PERRLA Speech: WNL Dominant Hand: Right Cranial Nerves II-XII Intact: Yes Gag: Present DTR's: 1+ Left Bicep, 1+ Right Bicep Response to light touch: Abnormal Response to pain prick: Abnormal Response to temperature: Abnormal Motor Strength: 4/5: Left Arm, Right Arm, Left Leg, Right Leg Gait: Deferred Imaging - Results Cat Scan: Image Reviewed Problem List - Problems (1) Seizure disorder Assessment/Plan: epilepsy Alcohol-induced seizure Neuropathy 1. Neuro checks every 1 hour. 2. Seizure precautions. 3. Increase Keppra to 1250 twice a day. 4. Check Keppra level. 5. EEG. Thank you very much for referring this patient for neurological consultation Code(s): G40.909 - EPILEPSY, UNSP, NOT INTRACTABLE, WITHOUT STATUS EPILEPTICUS
[2018-11-18 14:44] VITALS: BMI 29.0
[2018-11-18] MEDS: oxyCODONE HCL 5 MG TABLET PO SCH (16:43)
[2018-11-18] MEDS ORDERED: levETIRAcetam 250 MG TABLET (FP) PO ONE (20:34)
[2018-11-18] MEDS ORDERED: levETIRAcetam 500 MG TABLET (FP) PO ONE (20:34)
[2018-11-18] MEDS ORDERED: ZOLPIDEM TARTRATE 5 MG TABLET PO SCH (22:00)
[2018-11-18] MEDS ORDERED: levETIRAcetam 500 MG TABLET (FP) PO SCH (22:00)
[2018-11-19] MEDS: oxyCODONE HCL 5 MG TABLET PO SCH ×2 (00:01→06:45)
[2018-11-19] MEDS: SODIUM CHLORIDE 1,000 ML IV SCH (03:57)
[2018-11-19] MEDS ORDERED: chlordiazePOXIDE 5 MG CAPSULE PO SCH (05:00)
[2018-11-19] MEDS: GABAPENTIN 300 MG CAPSULE (FP) PO SCH (06:45)
[2018-11-19] MEDS: CYCLOBENZAPRINE HCL 10 MG TABLET (FP) PO SCH (06:45)
[2018-11-19] MEDS: HEPARIN NA (PORCINE) 5,000 UNITS/ML 1ML VIAL SQ SCH (06:46)
[2018-11-19 07:51] LABS: BASO % 1.1 % (0-2.0); EOS % 6.4 % (0-4.5); HEMATOCRIT 37.3 % (35.4-49); HEMOGLOBIN 12.8 GM/dL (11.7-16.9); LYMPH % 28.6 % (8-40); MCH 34.8 pg (25.7-33.7); MCHC 34.3 g/dl (32.0-35.9); MEAN CELL VOLUME 101.4 fl (80-96); MEAN PLT VOLUME 7.9 fl (7.5-11.1); MONO % 15.6 % (3.8-10.2); NEUT % 48.3 % (42.8-82.8); RBC 3.67 M/mm3 (4.00-5.60); RDW 14.7 % (11.9-15.9); WHITE BLOOD COUNT 4.2 K/mm3 (4.0-10.0)
[2018-11-19 08:14] LABS: ALBUMIN 2.6 g/dl (3.4-5.0); BILIRUBIN,TOTAL 1.3 mg/dL (0.2-1); BLOOD UREA NITROGEN 8.8 mg/dL (7-18); CALCIUM 7.8 mg/dL (8.5-10.1); CREATININE 0.5 mg/dL (0.55-1.3); PLATELET COUNT 128 K/MM3 (134-434); POTASSIUM 3.4 mmol/L (3.5-5.1); TOT PROT 6.4 g/dl (6.4-8.2)
[2018-11-19 09:15] VITALS: BP 142/94; PULSE 94; TEMP 98.8
[2018-11-19] MEDS ORDERED: DULoxetine HCL 30 MG CAPSULE.DR PO SCH (10:00)
[2018-11-19] MEDS ORDERED: levETIRAcetam 250 MG TABLET (FP) PO ONE (10:07)
[2018-11-19] MEDS ORDERED: levETIRAcetam 500 MG TABLET (FP) PO ONE (10:08)
[2018-11-19] MEDS: FOLIC ACID 1 MG TABLET (FP) PO SCH (10:12)
[2018-11-19] MEDS: FUROSEMIDE 40 MG TABLET (FP) PO SCH (10:12)
[2018-11-19] MEDS: SPIRONOLACTONE 25 MG TABLET (FP) PO SCH (10:12)
[2018-11-19] MEDS: TAMSULOSIN HCL 0.4 MG CAP PO SCH (10:13)
[2018-11-19] MEDS: THIAMINE HCL 100 MG TABLET (FP) PO SCH (10:17)
--- NOTE | 2018-11-19 11:54 | DS ---
Physical Exam: SUBJECTIVE: Patient seen and examined feeling better , no complain , no withdrawal symptoms. OBJECTIVE: Vital Signs Period Temp Pulse Resp BP Sys/Sarmiento Pulse Ox Last 24 Hr 97.6 F-98.8 F 62-94 18-20 116-143/81-102 99-99 PHYSICAL EXAM GENERAL: AAOx3 in NAD HEAD: NC/AT EYES: EOMI, Conjunctiva clear, sclera anicteric ENT: moist mucous membrane NECK: Supple, no JVD LUNGS: CTA B/L, no crackles no wheezing no accessory muscle use.right side rib bruise HEART: RRR, NSR, normal s1, s2, no M/R/G ABDOMEN: Soft, ND, NT, +BS 4 Q, no CVA Tenderness LOWER EXTREMITIES: no edema, +2DP pulse, NEUROLOGICAL: No focal deficit. Normal speech. gait not observed. PSYCHIATRIC: Cooperative. Good eye contact. Appropriate mood and affect. SKIN: Warm, dry, LABS Laboratory Results - last 24 hr 11/19/18 11/19/18 05:40 05:40 WBC 4.2 RBC 3.67 L Hgb 12.8 Hct 37.3 MCV 101.4 H MCH 34.8 H MCHC 34.3 RDW 14.7 Plt Count 128 L MPV 7.9 Absolute Neuts (auto) 2.0 Neutrophils % 48.3 Lymphocytes % 28.6 Monocytes % 15.6 H Eosinophils % 6.4 H Basophils % 1.1 Nucleated RBC % 0 Sodium 138 Potassium 3.4 L Chloride 103 Carbon Dioxide 30 Anion Gap 5 L BUN 8.8 Creatinine 0.5 L Est GFR (CKD-EPI)AfAm 148.52 Est GFR (CKD-EPI)NonAf 128.14 Random Glucose 101 Calcium 7.8 L Total Bilirubin 1.3 H AST 53 H ALT 40 Alkaline Phosphatase 142 H Total Protein 6.4 Albumin 2.6 L CBC, BMP 11/19/18 05:40 11/19/18 05:40 HOSPITAL COURSE: Date of Admission:11/18/18 Date of Discharge: 11/19/18 Patient is a 48 year old male with PMH of seizures, chronic alcohol use, liver disease, and BPH who presents s/p seizure one day ago likley due to alcohol abuse . pt was treated with libirium protocol, thiamin and folic acid , and eductaed about alcohol cessation,neurology Dr Zuñiga was consulted and recommend increase KEppra to 1250 BID and can follow up with him as out pt .pt can resume all his home meds and he can follow up with pcp within one week. Minutes to complete discharge: 45 Discharge Summary Reason For Visit: CHEST PAIN,SEIZURE DISORDER Condition: Stable - Instructions Diet, Activity, Other Instructions: you presented to the hospital due to seizure secondary to alcohol use , please stop using alcohol completely. your symptoms improved and you will be discharged home. Please resume all home meds as before admission You keppra has been increased to 1250 mg twice daily by Dr Zuñiga you can use thiamin tablet once daily and folic acid tablet once daily for one month. Please follow up with Dr Zuñiga Neurologist within one week , please follow up with your primary care physician Dr Rush within one week. If you develop fever, chills, chest pain or your symptoms worsen please return to emergency room Referrals: David Zuñiga MD [Staff Physician] - 1 Week Neil Rush MD [Primary Care Provider] - 1 Week Disposition: HOME - Home Medications Comprehensive Discharge Medication List: Ambulatory Orders Furosemide [Lasix] 40 mg PO DAILY 09/03/17 Tamsulosin HCl 0.4 mg PO DAILY 09/03/17 Zolpidem Tartrate [Ambien] 5 mg PO HS 09/03/17 oxyCODONE HCL [Roxicodone -] 20 mg PO Q6H 09/03/17 Magnesium Oxide [Mag-Ox -] 400 mg PO BID 30 Days #60 tablet 09/06/17 metFORMIN HCL [Metformin HCl] 500 mg PO BIDAC #30 tablet 02/20/18 Gabapentin 600 mg PO TID 05/28/18 Spironolactone [Aldactone -] 25 mg PO DAILY 05/28/18 Cyclobenzaprine HCl [Flexeril -] 10 mg PO HS #10 tablet 11/16/18 Duloxetine HCl 30 mg PO DAILY 11/18/18 Ergocalciferol (Vitamin D2) [Vitamin D2] 50,000 unit PO WEEKLY 11/18/18 Acetaminophen [Tylenol .Regular Strength -] 650 mg PO Q4H PRN tablet 11/19/18 Folic Acid - 1 mg PO DAILY #30 tablet 11/19/18 Thiamine HCl [Vitamin B1 -] 100 mg PO DAILY #30 tablet 11/19/18 levETIRAcetam [Keppra -] 1,250 mg PO BID #300 tablet 11/19/18 This patient is new to me today: No Emergency Visit: Yes ED Registration Date: 11/18/18 Care time: The patient presented to the Emergency Department on the above date and was hospitalized for further evaluation of their emergent condition. Critical Care patient: No - Discharge Referral Referred to [facility] Med [facility] No ATTENDING PHYSICIAN STATEMENT I saw and evaluated the patient. I reviewed the resident's note and discussed the case with the resident. I agree with the resident's findings and plan as documented. SUBJECTIVE: OBJECTIVE: ASSESSMENT AND PLAN:
[2018-11-20] MEDS ORDERED: chlordiazePOXIDE HCL 10 MG CAPSULE PO PRN
[2018-11-20] MEDS ORDERED: chlordiazePOXIDE HCL 10 MG CAPSULE PO SCH (05:00)
[2018-11-21] MEDS ORDERED: chlordiazePOXIDE HCL 10 MG CAPSULE PO ONE (05:00)
--- NOTE | 2018-11-24 19:00 | PN ---
Teaching Attending Note ATTENDING PHYSICIAN STATEMENT I saw and evaluated the patient. I reviewed the resident's note and discussed the case with the resident. I agree with the resident's findings and plan as documented. 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
== END 2018-11-19 11:01 | disposition home or self-care (01) | DRG 775 ==
LOC: JER 18:52 → OBSVTOIN 23:08 → UNDOADMOB 23:08 → INTOOBSV 23:08 → JERBED 23:08 → OBSVTOIN 11-18 00:17 → JERBED 11-18 13:10 → J5S 11-18 13:10
PROVIDERS: ADMIT Internal Medicine; ATTEND Internal Medicine
DX: F10.220 Alcohol dependence with intoxication, uncomplicated (principal); G62.9 Polyneuropathy, unspecified; E11.40 Type 2 diabetes mellitus with diabetic neuropathy, unspecified; I10 Essential (primary) hypertension; G40.909 Epilepsy, unspecified, not intractable, without status epilepticus; E87.6 Hypokalemia; R07.89 Other chest pain; F10.27 Alcohol dependence with alcohol-induced persisting dementia; K70.30 Alcoholic cirrhosis of liver without ascites; N40.0 Benign prostatic hyperplasia without lower urinary tract symptoms; M54.9 Dorsalgia, unspecified; G47.00 Insomnia, unspecified; F12.20 Cannabis dependence, uncomplicated; G89.29 Other chronic pain
CPT/HCPCS: 36415; 70450-TC; 71046-TC-FY; 71101-TC-RT-FY; 72070-TC-FY; 72125-TC; 73562-TC-RT-FY; 80053; 80177; 80307; 81003; 82550; 83690; 83735; 83880; 84100; 84484; 85025; 93005; 93010; 96372; 99281-25; 99285-25; J1644; J7030

== ENCOUNTER 2019-02-16 10:21 | Emergency (ER) | payer OTHER ==
[2019-02-16 10:32] VITALS: TEMP 97.9; BMI 30.5
[2019-02-16] MEDS ORDERED: chlordiazePOXIDE HCL 25 MG CAPSULE PO ONE (11:22)
[2019-02-16] MEDS ORDERED: SODIUM CHLORIDE 500 ML IV STA (11:22)
--- NOTE | 2019-02-16 11:39 | PDOC ---
History of Present Illness - General Chief Complaint: Injury Stated Complaint: INJURY Time Seen by Provider: 02/16/19 11:04 History Source: Patient, Family (dad at bedside), Old Records Exam Limitations: No Limitations - History of Present Illness Initial Comments: 02/16/19 11:27 48y/o M h/o alcoholism (has had withdrawal related seizures in the past, detox admissions at [facility]) and etoh related seizures maintained on Keppra ( followed by Dr. Zuñiga), BPH presents bib father with head injury. Pt is a daily beer drinker (6-10 beers/day), admits to being intoxicated last night, awoke in his bed this morning with dry blood in hair and on pillow. + headache but no vision change/speech change/n/v/focal deficit. ? whether he fell down stairs but not sure. has no other complaints, denies cp/sob/palp/extremity pain. no SI/HI/AH/VH. feels palpitations this morning but no tremors yet, last etoh about 1am. dad at bedside did not witness fall/injury, states pt currently at his baseline. Past History - Past Medical History Allergies/Adverse Reactions: Allergies Allergy/AdvReac Type Severity Reaction Status Date / Time No Known Allergies Allergy Verified 02/16/19 10:30 Home Medications: Ambulatory Orders Furosemide [Lasix] 40 mg PO DAILY 09/03/17 Tamsulosin HCl 0.4 mg PO DAILY 09/03/17 Zolpidem Tartrate [Ambien] 5 mg PO HS 09/03/17 oxyCODONE HCL [Roxicodone -] 20 mg PO Q6H 09/03/17 Magnesium Oxide [Mag-Ox -] 400 mg PO BID 30 Days #60 tablet 09/06/17 metFORMIN HCL [Metformin HCl] 500 mg PO BIDAC #30 tablet 02/20/18 Gabapentin 600 mg PO TID 05/28/18 Spironolactone [Aldactone -] 25 mg PO DAILY 05/28/18 Cyclobenzaprine HCl [Flexeril -] 10 mg PO HS #10 tablet 11/16/18 Duloxetine HCl 30 mg PO DAILY 11/18/18 Ergocalciferol (Vitamin D2) [Vitamin D2] 50,000 unit PO WEEKLY 11/18/18 Acetaminophen [Tylenol .Regular Strength -] 650 mg PO Q4H PRN tablet 11/19/18 Folic Acid - 1 mg PO DAILY #30 tablet 11/19/18 Thiamine HCl [Vitamin B1 -] 100 mg PO DAILY #30 tablet 11/19/18 levETIRAcetam [Keppra -] 1,250 mg PO BID #300 tablet 11/19/18 Anemia: No Asthma: No Cancer: No Cardiac Disorders: No CVA: No COPD: No CHF: Yes (on lasix) DVT: No Dementia: No Diabetes: No GI Disorders: No Disorders: Yes (BPH) HTN: No (ON LASIX) Hypercholesterolemia: No Kidney Stones: No Liver Disease: Yes (fatty liver, CIRRHOSIS) Psychiatric Problems: Yes (ANXIETY) Seizures: Yes (alcohol related) Thyroid Disease: No - Surgical History Abdominal Surgery: Yes (LAP BAND 2009/umbilical hernia repaired 2013) Appendectomy: No Cardiac Surgery: No Cholecystectomy: No GI Surgery: Yes (hernia repair) Lung Surgery: No Neurologic Surgery: No Orthopedic Surgery: Yes (ARTHROSCOPY LEFT SHOULDER 2011, knees arthroscopy) - Reproductive History Testicular Surgery: No - Immunization History Immunization Up to Date: Yes - Psycho Social/Smoking Cessation Hx Smoking Status: No Smoking History: Current every day smoker Have you smoked in the past 12 months: Yes Number of Cigarettes Smoked Daily: 5 Cigars Per Day: 0 Information on smoking cessation initiated: No 'Breaking Loose' booklet given: 11/18/18 Hx Alcohol Use: Yes (daily chr use) Drug/Substance Use Hx: No Substance Use Type: Marijuana, Prescribed Hx Substance Use Treatment: [facility] 07/04[facility]17) Review of Systems - Review of Systems Constitutional: No: Chills, Fever, Night Sweats HEENTM: No: Recent change in vision Respiratory: No: Cough, Shortness of Breath Cardiac (ROS): Yes: Palpitations. No: Chest Pain, Edema, Syncope ABD/GI: No: Diarrhea, Nausea, Vomiting Musculoskeletal: Yes: Back Pain (chronic radiculopathy) Integumentary: No: Rash Neurological: Yes: Headache All Other Systems: Reviewed and Negative *Physical Exam - Vital Signs Last Vital Signs Temp Pulse Resp BP Pulse Ox 97.9 F 126 H 20 100/62 98 02/16/19 10:30 02/16/19 10:30 02/16/19 10:30 02/16/19 10:30 02/16/19 10:30 - Physical Exam Comments: 02/16/19 11:40 afebrile, regular tachycardia, o2 sat normal General: Patient is alert, + AOB. Speech is clear and otherwise appropriate. Head: Nontender, dry blood to L scalp. No hematoma. HEENT: Pupils are equal round and reactive to light, extraocular movements are intact. The tympanic membranes are clear, no hemotympanum. No facial deformity/ tenderness, no septal hematoma. The oropharynx is clear. Neck: The trachea is midline, there is no stridor. There is no midline cervical spine tenderness, full range of motion of neck. Chest: Nontender, no ecchymosis or abrasions. Heart: S1-S2, regular tachycardia. No murmurs. Lungs: Clear to auscultation bilaterally. Symmetric chest rise. Abdomen: Soft/nontender/nondistended. Bowel sounds are normal. There is no abdominal or flank ecchymosis. Back/Pelvis: There is no midline spine tenderness or step-off. Pelvis is stable and nontender. Extremities: There is no extremity deformity or joint swelling. No focal bony tenderness throughout. 2+ distal pulses throughout. Neuro: Alert and oriented x3. Cranial nerves II through XII are intact. 5 out of 5 motor strength x4 extremities. [id number] is intact. No pronator drift. Gait is stable. Skin: superficial 1-3mm abrasions to b/l knees. No hematomas. + scalp laceration. Psych: Affect is appropriate. Occasionally tearful when talking about his alcoholism but no SI. Heart Score/ECG Review #1 ECG reviewed & interpreted by me at: 13:29 General ECG Interpretation: Sinus Rhythm, Normal Rate (96), Normal Intervals ( qtc 480), No acute ischemic changes ED Treatment Course - LABORATORY CBC & Chemistry Diagram: 02/16/19 12:00 02/16/19 12:00 - RADIOLOGY Radiology Studies Ordered: Category Date Time Status HEAD CT WITHOUT CONTRAST [CT] Stat CT Scan 02/16/19 11:22 Ordered CHEST X-RAY PORTABLE* [RAD] Stat Radiology 02/16/19 11:22 Ordered Medical Decision Making - Medical Decision Making 02/16/19 11:42 48-year-old male with history of alcoholism and seizures presents with head injury in the setting of alcohol intoxication, HD stable here with trauma exam isolated to L scalp, neuro intact but tachycardia suggestive of early withdrawal. no acute psych issues. labs, ua, ekg cxr, ct head wound care ivf, ativan and librium for withdrawal pt expressing desire to go to [facility] for detox, will arrange transfer once medically cleared 02/16/19 13:09 labs wnl overall with t. bili 2.2 similar to past levels, elevated etoh and marijuana (takes medically) without apap or asa levels. cxr and ct head without acute pathology. feels better after benzos, no tremors and HR 90. still endorsing desire for detox, will refer to [facility]. wound repair then dispo. 02/16/19 13:56 linear, well approximated 6cm scalp laceration. irene placed per procedure note. Accepted for transfer to [facility] for evaluation, signout given to Dr. Castro. Discharge - Discharge Information Problems reviewed: Yes Clinical Impression/Diagnosis: Alcohol dependence with uncomplicated withdrawal Closed head injury Qualifiers: Encounter type: initial encounter Qualified Code(s): S09.90XA - Unspecified injury of head, initial encounter Scalp laceration Qualifiers: Encounter type: initial encounter Qualified Code(s): S01.01XA - Laceration without foreign body of scalp, initial encounter Condition: Improved Disposition: HOME - Follow up/Referral Referrals: Neil Rush MD [Primary Care Provider] - - Patient Discharge Instructions Patient Printed Discharge Instructions: DI for Laceration Repair -- Irene, DI for Closed Head Injury, DI for Alcohol Abuse Additional Instructions: Activity as tolerated. Stay hydrated. Blood tests, a CT scan, and a Chest x-ray showed no acute abnormalities today. Your liver tests are slightly elevated to similar levels as in the past, likely due to alcohol intake. Agency were placed in your scalp for the laceration, these should be removed in about 7 days. Tylenol 1000 mg every 8 hours and/or ibuprofen 600 mg every 8 hours as needed for pain. Ice and elevate the affected areas for 20 minutes every 3-4 hours to reduce swelling. Continue your medications as previously prescribed by your physician. DISCUSSED, WE WILL BRING YOU DIRECTLY TO [facility] FOR EVALUATION FOR DETOX. FOLLOW THEIR INSTRUCTIONS AND PROTOCOLS. You should follow up with your primary doctor as soon as possible regarding today's emergency department visit. Return to the emergency department for any new or concerning symptoms, particularly severe tremors/palpitations, confusion or hallucinating, fever, redness/swelling/pus from wound. - Post Discharge Activity
[2019-02-16] MEDS ORDERED: LORazepam 2 MG/ML SDV VIAL ONE ×2 (11:43→13:27)
[2019-02-16] MEDS ORDERED: chlordiazePOXIDE HCL 25 MG CAPSULE ONE (11:45)
[2019-02-16 12:12] LABS: EPI CELLS 0.5 /HPF (0-5/HPF); HYALINE CASTS 4 /lpf (0-8); PH,URINE 6.5 (5.0-8.0); URINE APPEARANCE CLEAR; URINE BILIRUBIN NEGATIVE (NEGATIVE); URINE COLOR DK YELLOW; URINE GLUCOSE (UA) NEGATIVE (NEGATIVE); URINE KETONE NEGATIVE (NEGATIVE); URINE LEUK ESTERASE NEGATIVE (NEGATIVE); URINE NITRITE NEGATIVE (NEGATIVE); URINE PROTEIN NEGATIVE (NEGATIVE); URINE RBC 8 /hpf (0-4); URINE WBC 1 /hpf (0-5)
[2019-02-16 12:18] LABS: COCAINE, UR NEGATIVE ng/ml (CUTOFF=300); METHADONE, UR NEGATIVE ng/ml (CUTOFF=300); OPIATES, URI NEGATIVE ng/ml (CUTOFF=300); PHENCYCLIDINE,URINE NEGATIVE ng/ml (CUTOFF=25); URINE AMPHETAMINES NEGATIVE ng/ml (CUTOFF=500); URINE BARBITURATES NEGATIVE ng/ml (CUTOFF=200); URINE BENZODIAZEPINES NEGATIVE ng/ml (CUTOFF=200)
[2019-02-16 12:29] LABS: BASO % 1.2 % (0-2.0); EOS % 1.4 % (0-4.5); HEMATOCRIT 49.2 % (35.4-49); HEMOGLOBIN 16.9 GM/dL (11.7-16.9); LYMPH % 36.9 % (8-40); MCH 33.1 pg (25.7-33.7); MCHC 34.4 g/dl (32.0-35.9); MEAN CELL VOLUME 96.1 fl (80-96); MEAN PLT VOLUME 7.4 fl (7.5-11.1); MONO % 10.9 % (3.8-10.2); NEUT % 49.6 % (42.8-82.8); PLATELET COUNT 290 K/MM3 (134-434); RBC 5.12 M/mm3 (4.00-5.60); WHITE BLOOD COUNT 7.8 K/mm3 (4.0-10.0)
[2019-02-16 13:06] LABS: ALBUMIN 3.5 g/dl (3.4-5.0); ALK PHOS 150 U/L (45-117); ANION GAP 11 MMOL/L (8-16); BILIRUBIN,TOTAL 2.2 mg/dL (0.2-1); BLOOD UREA NITROGEN 5.3 mg/dL (7-18); CALCIUM 8.5 mg/dL (8.5-10.1); CHLORIDE 104 mmol/L (98-107); CO2 26 mmol/L (21-32); CREATININE 0.8 mg/dL (0.55-1.3); GLUCOSE,RANDOM 144 mg/dL (74-106); POTASSIUM 3.6 mmol/L (3.5-5.1); SGOT/AST 146 U/L (15-37); SGPT/ALT 91 U/L (13-61); SODIUM 140 mmol/L (136-145); TOT PROT 8.4 g/dl (6.4-8.2)
[2019-02-16 13:58] VITALS: BP 127/86; PULSE 93
--- NOTE | 2019-02-16 15:49 | EKG ---
Test Reason : Blood Pressure : / mmHG Vent. Rate : 096 BPM Atrial Rate : 096 BPM P-R Int : 156 ms QRS Dur : 092 ms QT Int : 380 ms P-R-T Axes : 033 032 048 degrees QTc Int : 480 ms NORMAL SINUS RHYTHM PROLONGED QT ABNORMAL ECG WHEN COMPARED WITH ECG OF 17-NOV-2018 18:53, NO SIGNIFICANT CHANGE WAS FOUND Confirmed by MD Pandya Daniel ([id number]) on 02/16/2019 3:49:25 PM Referred By: Confirmed By:Rashi Pandya MD
== END 2019-02-16 14:30 | disposition home or self-care (01) ==
LOC: JER 10:21
PROC: 0HQ0XZZ Repair Scalp Skin, External Approach (ICD-10-PCS; principal; 2019-02-16)
DX: F10.120 Alcohol abuse with intoxication, uncomplicated (principal); S01.01XA Laceration without foreign body of scalp, initial encounter; X58.XXXA Exposure to other specified factors, initial encounter; S80.212A Abrasion, left knee, initial encounter; S80.211A Abrasion, right knee, initial encounter; Y93.89 Activity, other specified; Y92.89 Other specified places as the place of occurrence of the external cause; Y99.8 Other external cause status; Y90.8 Blood alcohol level of 240 mg/100 ml or more; G40.509 Epileptic seizures related to external causes, not intractable, without status epilepticus; E11.9 Type 2 diabetes mellitus without complications; Z79.84 Long term (current) use of oral hypoglycemic drugs; I50.9 Heart failure, unspecified; N40.0 Benign prostatic hyperplasia without lower urinary tract symptoms; K74.60 Unspecified cirrhosis of liver; Z98.84 Bariatric surgery status
CPT/HCPCS: 12002-25; 36415; 70450-TC; 71045-TC-FY; 80053; 80307; 81003; 82550; 84484; 85025; 93005; 93010; 96374; 96376; 99283-25

== ENCOUNTER 2019-02-23 13:33 | Emergency (ER) | payer OTHER ==
--- NOTE | 2019-02-23 13:36 | PDOC ---
Rapid Medical Evaluation Time Seen by Provider: 02/23/19 13:35 Medical Evaluation: Allergies Allergy/AdvReac Type Severity Reaction Status Date / Time No Known Allergies Allergy Verified 02/16/19 10:30 02/23/19 13:36 I have performed a brief in-person evaluation of this patient. The patient presents with a chief complaint of: staple removal Pertinent physical exam findings: irene to L christianity I have ordered the following: nothing The patient will proceed to the ED for further evaluation. Discharge Disposition - Diagnosis Encounter for staple removal - Referrals - Patient Instructions - Post Discharge Activity
[2019-02-23 13:37] VITALS: BP 122/72; PULSE 94; TEMP 98; BMI 30.9
--- NOTE | 2019-02-23 14:04 | PDOC ---
Suture Removal/Wound Check HPI - History of Present Illness Chief Complaint: Suture/Staple Removal(Here) Stated Complaint: IRENE REMOVED Time Seen by Provider: 02/23/19 13:35 History Source: Yes: Patient Exam Limitations: Yes: Clinical Condition Treated at: [facility] Date of Last ED visit: 02/16/19 - Previous ED Treatment Type of procedure performed on last visit: Yes: Laceration Repair Tetanus Immunization: Yes: Up to Date Past History - Past Medical History Allergies/Adverse Reactions: Allergies Allergy/AdvReac Type Severity Reaction Status Date / Time No Known Allergies Allergy Verified 02/23/19 13:37 Home Medications: Ambulatory Orders Furosemide [Lasix] 40 mg PO DAILY 09/03/17 Tamsulosin HCl 0.4 mg PO DAILY 09/03/17 Zolpidem Tartrate [Ambien] 5 mg PO HS 09/03/17 oxyCODONE HCL [Roxicodone -] 20 mg PO Q6H 09/03/17 Magnesium Oxide [Mag-Ox -] 400 mg PO BID 30 Days #60 tablet 09/06/17 metFORMIN HCL [Metformin HCl] 500 mg PO BIDAC #30 tablet 02/20/18 Gabapentin 600 mg PO TID 05/28/18 Spironolactone [Aldactone -] 25 mg PO DAILY 05/28/18 Cyclobenzaprine HCl [Flexeril -] 10 mg PO HS #10 tablet 11/16/18 Duloxetine HCl 30 mg PO DAILY 11/18/18 Ergocalciferol (Vitamin D2) [Vitamin D2] 50,000 unit PO WEEKLY 11/18/18 Acetaminophen [Tylenol .Regular Strength -] 650 mg PO Q4H PRN tablet 11/19/18 Folic Acid - 1 mg PO DAILY #30 tablet 11/19/18 Thiamine HCl [Vitamin B1 -] 100 mg PO DAILY #30 tablet 11/19/18 levETIRAcetam [Keppra -] 1,250 mg PO BID #300 tablet 11/19/18 Anemia: No Asthma: No Cancer: No Cardiac Disorders: No CVA: No COPD: No CHF: Yes (on lasix) DVT: No Dementia: No Diabetes: No GI Disorders: No Disorders: Yes (BPH) HTN: No (ON LASIX) Hypercholesterolemia: No Kidney Stones: No Liver Disease: Yes (fatty liver, CIRRHOSIS) Psychiatric Problems: Yes (ANXIETY) Seizures: Yes (alcohol related) Thyroid Disease: No - Surgical History Abdominal Surgery: Yes (LAP BAND 2009/umbilical hernia repaired 2013) Appendectomy: No Cardiac Surgery: No Cholecystectomy: No GI Surgery: Yes (hernia repair) Lung Surgery: No Neurologic Surgery: No Orthopedic Surgery: Yes (ARTHROSCOPY LEFT SHOULDER 2011, knees arthroscopy) - Reproductive History Testicular Surgery: No - Immunization History Immunization Up to Date: Yes - Psycho Social/Smoking Cessation Hx Smoking Status: No Smoking History: Never smoked Have you smoked in the past 12 months: Yes Number of Cigarettes Smoked Daily: 5 Cigars Per Day: 0 'Breaking Loose' booklet given: 11/18/18 Hx Alcohol Use: Yes (daily chr use) Drug/Substance Use Hx: No Substance Use Type: Marijuana, Prescribed Hx [facility] Suture Removal/Wound Check PE - Physical Exam Laceration/Wound Check Symptoms: reports: None. denies: Pain, Discharge, Bleeding Current Severity Level: None Location of Laceration/Wound: left: Head (left scalp) *Review of Systems - Review of Systems Able to Perform ROS?: Yes Constitutional: No: Chills, Fever, Malaise, Weakness HEENTM: No: Symptoms Reported, Eye Pain, Blurred Vision, Recent change in vision Respiratory: No: Symptoms reported, See HPI, Cough, Orthopnea, Shortness of Breath, SOB with Exertion, SOB at Rest, Stridor, Wheezing, Productive cough, Hemoptysis, Other Cardiac (ROS): No: Symptoms Reported, See HPI, Chest Pain, Edema, Irregular Heart Rate, Lightheadedness, Palpitations, Syncope, Chest Tightness, Other ABD/GI: No: Nausea, Vomiting Integumentary: Yes: Symptoms Reported, See HPI, Other (laceration to left side of scalp with irene) Neurological: No: Symptoms reported, Headache, Numbness, Paresthesia, Seizure, Dizziness All Other Systems: Reviewed and Negative *Physical Exam - Vital Signs Last Vital Signs Temp Pulse Resp BP Pulse Ox 98 F 94 H 18 122/72 100 02/23/19 13:34 02/23/19 13:34 02/23/19 13:34 02/23/19 13:34 02/23/19 13:34 - Physical Exam General Appearance: Yes: Nourished, Appropriately Dressed. No: Apparent Distress HEENT: positive: Normal ENT Inspection Neck: positive: Supple Respiratory/Chest: negative: Respiratory Distress, Accessory Muscle Use Musculoskeletal: positive: Normal Inspection Extremity: positive: Normal Capillary Refill Integumentary: positive: Normal Color, Other (well healed 4cm linear laceration to [address] to left side of head. no wound dehiscense, no discharge from wound. 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 Patient denies headaches, nausea, vomiting, dizziness, discharge from wound site. Denies any redness to wound site. Exam significant for 4 cm linear laceration to left side of scalp with staple in place. No evidence of wound infection. 7 irene removed with staple removal kit without complication. Bacitracin applied to wound. Patient stable for discharge with advised to continue home bacitracin twice a day until healed Discharge - Discharge Information Problems reviewed: Yes Clinical Impression/Diagnosis: Encounter for staple removal Condition: Stable Disposition: HOME - Admission No - Follow up/Referral - Patient Discharge Instructions Patient Printed Discharge Instructions: How to Care for a Surgical Wound- [place] Additional Instructions: Continue applying bacitracin to wound twice a day until fully healed. Follow- up with primary care as needed - Post Discharge Activity
== END 2019-02-23 14:10 | disposition home or self-care (01) ==
LOC: JERFT 13:33
DX: Z48.817 Encounter for surgical aftercare following surgery on the skin and subcutaneous tissue (principal); Z48.02 Encounter for removal of sutures; S01.01XD Laceration without foreign body of scalp, subsequent encounter; W19.XXXD Unspecified fall, subsequent encounter; E11.9 Type 2 diabetes mellitus without complications; Z79.4 Long term (current) use of insulin; I50.9 Heart failure, unspecified; N40.0 Benign prostatic hyperplasia without lower urinary tract symptoms; F41.9 Anxiety disorder, unspecified; G40.509 Epileptic seizures related to external causes, not intractable, without status epilepticus; Z98.84 Bariatric surgery status; Z98.890 Other specified postprocedural states; K74.60 Unspecified cirrhosis of liver
CPT/HCPCS: 99281-25

== ENCOUNTER 2019-10-30 04:26 | Inpatient (IN) | payer OTHER ==
--- NOTE | 2019-10-30 04:59 | PDOC ---
Attending Attestation - Resident Resident Name: ChristenSera - ED Attending Attestation I have performed the following: I have examined & evaluated the patient, The case was reviewed & discussed with the resident, I agree w/resident's findings & plan - HPI HPI: 10/30/19 05:03 Pt states that he just doesn't feel well/. States that he had a couple of beers at home and he began to feel even more worse. He has some left arm pain and chest discomfort. His grandfather had an [place] and at age 54. Pt states that he has multiple medical problems and takes a bunch of meds. He is not and never was a smoker. - Physicial Exam PE: 10/30/19 05:04 Pt is overweight Afebrile Pt appears tired. Pt has tatoos all over his trunk and upper body/arms pt has normal heart and lungs and flank Abd soft NT ND Pt has no C/C/E good pulses throughout. - Medical Decision Making 10/30/19 06:24 lipase elevated; elevated t bili; pt has 10/30/19 06:24 opiae, benzo, maijuana positive in the urine. Pt also drinking alcohol today 10/30/19 21:07 Pt signed out to the day team Discharge - Discharge Information Problems reviewed: Yes Clinical Impression/Diagnosis: Palpitations, Cannabis dependence, Total bilirubin, elevated, Opiate use, Elevated LFTs, Elevated TSH, Elevated lipase Condition: Fair - Follow up/Referral - Patient Discharge Instructions - Post Discharge Activity
--- NOTE | 2019-10-30 05:10 | PDOC ---
History of Present Illness - General Chief Complaint: Palpitations Stated Complaint: PALPITATIONS Time Seen by Provider: 10/30/19 04:58 - History of Present Illness Initial Comments: Tom Blount is a 49yo with a PMH of alcoholism, s/p gastric sleeve, HTN, HLD, DM who presents with acute onset of palpitations, difficulty breathing, and severe anxiety about an hour prior to arrival. He states that he was watching TV when the symptoms started abruptly. He has never had similar symptoms in the past. He states that he does not normally have anxiety, but he felt extremely anxious and was concerned. He denies chest pain, sweating, lightheadedness, nausea, or other associated symptoms. Mr Blount says that he takes "a lot of mediations" at home but is unsure what they are; he reports compliance with his home meds. He denies any history of thyroid abnormalities, cardiac problems and additionally denies any stimulant use or other substance use today. Past History - Medical History Allergies/Adverse Reactions: Allergies Allergy/AdvReac Type Severity Reaction Status Date / Time No Known Allergies Allergy Verified 02/23/19 13:37 Home Medications: Ambulatory Orders Furosemide [Lasix] 40 mg PO DAILY 09/03/17 Tamsulosin HCl 0.4 mg PO DAILY 09/03/17 Zolpidem Tartrate [Ambien] 5 mg PO HS 09/03/17 oxyCODONE HCL [Roxicodone -] 20 mg PO Q6H 09/03/17 Magnesium Oxide [Mag-Ox -] 400 mg PO BID 30 Days #60 tablet 09/06/17 metFORMIN HCL [Metformin HCl] 500 mg PO BIDAC #30 tablet 02/20/18 Gabapentin 600 mg PO TID 05/28/18 Spironolactone [Aldactone -] 25 mg PO DAILY 05/28/18 Cyclobenzaprine HCl [Flexeril -] 10 mg PO HS #10 tablet 11/16/18 Duloxetine HCl 30 mg PO DAILY 11/18/18 Ergocalciferol (Vitamin D2) [Vitamin D2] 50,000 unit PO WEEKLY 11/18/18 Acetaminophen [Tylenol .Regular Strength -] 650 mg PO Q4H PRN tablet 11/19/18 Folic Acid - 1 mg PO DAILY #30 tablet 11/19/18 Thiamine HCl [Vitamin B1 -] 100 mg PO DAILY #30 tablet 11/19/18 levETIRAcetam [Keppra -] 1,250 mg PO BID #300 tablet 11/19/18 Anemia: No Asthma: No Cancer: No Cardiac Disorders: No CVA: No COPD: No CHF: Yes (on lasix) DVT: No Dementia: No Diabetes: No GI Disorders: No Disorders: Yes (BPH) HTN: No (ON LASIX) Hypercholesterolemia: No Kidney Stones: No Liver Disease: Yes (fatty liver, CIRRHOSIS) Psychiatric Problems: Yes (ANXIETY) Seizures: Yes (alcohol related) Thyroid Disease: No - Surgical History Abdominal Surgery: Yes (LAP BAND 2009/umbilical hernia repaired 2013) Appendectomy: No Cardiac Surgery: No Cholecystectomy: No GI Surgery: Yes (hernia repair) Lung Surgery: No Neurologic Surgery: No Orthopedic Surgery: Yes (ARTHROSCOPY LEFT SHOULDER 2011, knees arthroscopy) - Reproductive History Testicular Surgery: No - Immunization History Immunization Up to Date: Yes - Psycho-Social/Smoking History Smoking Status: No Smoking History: Never smoked Have you smoked in the past 12 months: No Number of Cigarettes Smoked Daily: 5 Cigars Per Day: 0 Information on smoking cessation initiated: No 'Breaking Loose' booklet given: 11/18/18 - Substance Abuse Hx (Audit-C & DAST Scrn) How often the patient has a drink containing alcohol: 4 0r more times/wk Number of drinks the patient has on a typical day: 5 or 6 How often the patient has six or more drinks on one occasion: Daily or almost daily Score: In Men: 4 or > Positive; In Women: 3 or > Positive: 10 Screen Result (Pos requires Nsg. Audit-10AR): Positive In the last yr the pt used illegal drug/Rx for NonMed reason: Yes Score: Yes response is considered Positive: 1 Screen Result (Positive result requires Nsg. DAST-10): Positive Review of Systems - Review of Systems Comments:: General: No fevers, no chills, no weight or appetite change, no malaise HEENT: No changes in vision, no changes in hearing, no congestion, no sore throat CV: No chest pain, +palpitations, no LE edema Pulm: +SOB, no cough, no wheezing GI: No nausea or vomiting, no change in bowel habits, no melena : No frequency, no urgency, no dysuria Musc: No back pain, no joint swelling, no recent injury Skin: No rash, no lesions, no erythema Endo: No excessive thirst, no heat/cold intolerance Heme: No unusual bruising or bleeding, no swollen glands Neuro: No syncope, no numbness/tingling, no focal weakness Vasc: No claudication Psych: +Anxiety, no SI or HI *Physical Exam - Vital Signs Last Vital Signs Temp Pulse Resp BP Pulse Ox 98.2 F 88 18 132/85 95 10/30/19 04:49 10/30/19 04:49 10/30/19 04:49 10/30/19 04:49 10/30/19 04:49 - Physical Exam General: Appears anxious, in no acute distress HEENT: Atraumatic, PERRL, EOMI, MMM, voice normal, normal neck ROM Cards: RRR, no murmur appreciated Pulm: Comfortable on room air, clear to auscultation bilaterally Abd: Soft, nontender, nondistended Ext: Atraumatic. No LE edema. ROM intact. WWP Skin: Normal color, no rashes or lesions Neuro: A&Ox3, CN grossly intact, normal speech, motor/sensory grossly intact and symmetric Psych: Mood appropriate to situation ED Treatment Course - LABORATORY CBC & Chemistry Diagram: 10/30/19 05:19 10/30/19 05:19 Medical Decision Making - Medical Decision Making 10/30/19 05:10 Tom Blount is a 49yo with a PMH of alcoholism, s/p gastric sleeve, HTN, HLD, DM who presents with acute onset of palpitations, difficulty breathing, and severe anxiety about an hour prior to arrival. - Currently appears anxious but regular HR in low 80's, lungs clear. ACS possible given history, intermittent arrhythmia, anxiety/panic, hyperthyroidism, undisclosed substance abuse - CBC, CMP, trop, TSH, T4, tox 10/30/19 07:05 - EKG w/ HR 79, normal axis, normal intervals. Sinus arrhythmia - Labs with multiple abnormalities; elevated LFT's, elevated lipase, elevated TSH with normal T4. INR 1.4 - Tox positive for opiates, benzos, marijuana. Added alcohol level - Will admit for ACS and palpitations, microblog sent. - Signed out to Dr Martin for remainder of his ED care Discussed with Dr Luis Alberto Velásquez PGY3 Discharge - Discharge Information Problems reviewed: Yes Clinical Impression/Diagnosis: Palpitations, Cannabis dependence, Total bilirubin, elevated, Opiate use, Elevated LFTs, Elevated TSH, Elevated lipase Condition: Fair - Admission Yes - Follow up/Referral Referrals: Neil Rush MD [Primary Care Provider] - - Patient Discharge Instructions - Post Discharge Activity Work/Back to School Note: My Personal Safety Plan
[2019-10-30 05:48] LABS: PH,URINE 8.5 (5.0-8.0); URINE APPEARANCE CLEAR; URINE BILIRUBIN 1+ (NEGATIVE); URINE COLOR DK YELLOW; URINE GLUCOSE (UA) NEGATIVE (NEGATIVE); URINE KETONE NEGATIVE (NEGATIVE); URINE LEUK ESTERASE NEGATIVE (NEGATIVE); URINE NITRITE NEGATIVE (NEGATIVE); URINE PROTEIN NEGATIVE (NEGATIVE)
[2019-10-30 05:51] LABS: INR 1.4 (0.83-1.09); PROTHROMBIN TIME (PATIENT) 16.6 SEC (9.7-13.0)
[2019-10-30 06:00] LABS: PHENCYCLIDINE,URINE NEGATIVE ng/ml (CUTOFF=25); URINE AMPHETAMINES NEGATIVE ng/ml (CUTOFF=500); URINE BARBITURATES NEGATIVE ng/ml (CUTOFF=200)
[2019-10-30 06:11] LABS: COCAINE, UR NEGATIVE ng/ml (CUTOFF=300); METHADONE, UR NEGATIVE ng/ml (CUTOFF=300)
[2019-10-30 06:12] LABS: ALBUMIN 2.5 g/dl (3.4-5.0); ANION GAP 10 MMOL/L (8-16); BLOOD UREA NITROGEN 5.4 mg/dL (7-18); CALCIUM 8.2 mg/dL (8.5-10.1); CHLORIDE 107 mmol/L (98-107); CO2 27 mmol/L (21-32); GLUCOSE,RANDOM 127 mg/dL (74-106); POTASSIUM 3.5 mmol/L (3.5-5.1); SODIUM 144 mmol/L (136-145)
[2019-10-30 06:19] LABS: ALK PHOS 174 U/L (45-117); BILIRUBIN,TOTAL 2.6 mg/dL (0.2-1); CREATININE 0.6 mg/dL (0.55-1.3); SGOT/AST 151 U/L (15-37); SGPT/ALT 53 U/L (13-61); TOT PROT 7.5 g/dl (6.4-8.2)
[2019-10-30 06:20] LABS: OPIATES, URI POSITIVE ng/ml (CUTOFF=300); URINE BENZODIAZEPINES POSITIVE ng/ml (CUTOFF=200)
[2019-10-30 06:21] LABS: BASO % 0.9 % (0-2.0); EOS % 3.3 % (0-4.5); HEMATOCRIT 39.1 % (35.4-49); HEMOGLOBIN 13.2 GM/dL (11.7-16.9); LYMPH % 35.7 % (8-40); MCH 34.3 pg (25.7-33.7); MCHC 33.7 g/dl (32.0-35.9); MEAN CELL VOLUME 101.7 fl (80-96); MEAN PLT VOLUME 8.3 fl (7.5-11.1); NEUT % 51.1 % (42.8-82.8); PLATELET COUNT 115 K/MM3 (134-434); RBC 3.85 M/mm3 (4.00-5.60); RDW 15.8 % (11.9-15.9); WHITE BLOOD COUNT 6.3 K/mm3 (4.0-10.0)
[2019-10-30] MEDS ORDERED: SODIUM CHLORIDE 0.9% 500 ML INFUS.BAG IV ONE (06:55)
--- NOTE | 2019-10-30 07:19 | PDOC ---
*Physical Exam - Vital Signs Last Vital Signs Temp Pulse Resp BP Pulse Ox 98.0 F 82 16 136/85 96 10/30/19 06:06 10/30/19 06:06 10/30/19 06:06 10/30/19 06:06 10/30/19 06:06 ED Treatment Course - LABORATORY CBC & Chemistry Diagram: 10/30/19 05:19 10/30/19 05:19 - ADDITIONAL ORDERS Additional order review: Laboratory Results 10/30/19 10/30/19 10/30/19 05:19 05:19 05:19 PT with INR INR Sodium Potassium Chloride Carbon Dioxide Anion Gap BUN Creatinine Est GFR (CKD-EPI)AfAm Est GFR (CKD-EPI)NonAf Random Glucose Calcium Total Bilirubin AST ALT Alkaline Phosphatase Creatine Kinase Creatine Kinase Index CK-MB (CK-2) Troponin I Total Protein Albumin Lipase 524 H TSH 3.88 H D Free T4 1.12 Urine Color Urine Appearance Urine pH Ur Specific [place] Urine Protein Urine Glucose (UA) Urine Ketones Urine Blood Urine Nitrite Urine Bilirubin Urine Urobilinogen Ur Leukocyte Esterase Opiates Screen Positive A* Methadone Screen Negative Barbiturate Screen Negative Phencyclidine Screen Negative Ur Amphetamines Screen Negative MDMA (Ecstasy) Screen Negative Benzodiazepines Screen Positive A* Cocaine Screen Negative U Marijuana (THC) Screen Positive A* 10/30/19 10/30/19 10/30/19 05:19 05:19 05:19 PT with INR 16.60 H INR 1.40 H Sodium 144 Potassium 3.5 Chloride 107 Carbon Dioxide 27 Anion Gap 10 BUN 5.4 L Creatinine 0.6 Est GFR (CKD-EPI)AfAm 136.83 Est GFR (CKD-EPI)NonAf 118.06 Random Glucose 127 H Calcium 8.2 L Total Bilirubin 2.6 H AST 151 H ALT 53 Alkaline Phosphatase 174 H Creatine Kinase 308 Creatine Kinase Index 1.2 CK-MB (CK-2) 3.7 H Troponin I < 0.02 Total Protein 7.5 Albumin 2.5 L Lipase TSH Free T4 Urine Color Dk yellow Urine Appearance Clear Urine pH 8.5 H D Ur Specific [place] 1.013 Urine Protein Negative Urine Glucose (UA) Negative Urine Ketones Negative Urine Blood Negative Urine Nitrite Negative Urine Bilirubin 1+ H Urine Urobilinogen 2.0 Ur Leukocyte Esterase Negative Opiates Screen Methadone Screen Barbiturate Screen Phencyclidine Screen Ur Amphetamines Screen MDMA (Ecstasy) Screen Benzodiazepines Screen Cocaine Screen U Marijuana (THC) Screen 10/30/19 05:19 RBC 3.85 L MCV 101.7 H MCHC 33.7 RDW 15.8 D MPV 8.3 D Neutrophils % 51.1 Lymphocytes % 35.7 Monocytes % 9.0 Eosinophils % 3.3 D Basophils % 0.9 - Medications Given in the ED: ED Medications Discontinued Medications Generic Name Dose Route Start Last Admin Trade Name Rafaq PRN Reason Stop Dose Admin Sodium Chloride 1,000 ml 10/30/19 06:55 10/30/19 07:03 Normal Saline - IV 10/30/19 06:56 1,000 ml ONCE ONE Administration Medical Decision Making - Medical Decision Making Patient signed out by Dr. Velásquez 49yo with PMH of alcoholism, s/p gastric sleeve, HTN, HLD, DM who presents with acute onset of palpitations, difficulty breathing, and severe anxiety about an hour prior to arrival. EKG w/ HR 79, normal axis, normal intervals. Sinus arrhythmia Labs with multiple abnormalities; elevated LFT's, elevated lipase, elevated TSH with normal T4. INR 1.4 Tox positive for opiates, benzos, marijuana. Added alcohol level Pending admission for ACS and palpitations, microblog sent. ACS possible given history, intermittent arrhythmia, anxiety/panic, hyperthyroidism, undisclosed substance abuse 10/30/19 07:18 Discussed case with [facility] team who accepted patient for telemetry observation under Dr. Reed 10/30/19 07:31 Discharge - Discharge Information Problems reviewed: Yes Clinical Impression/Diagnosis: Palpitations, Cannabis dependence, Total bilirubin, elevated, Opiate use, Elevated LFTs, Elevated TSH, Elevated lipase Condition: Fair - Follow up/Referral - Patient Discharge Instructions - Post Discharge Activity
[2019-10-30 11:38] LABS: BILIRUBIN,DIRECT 1.7 mg/dL (0.0-0.2)
[2019-10-30] MEDS: INSULIN SLIDING SCALE (NOVOLOG) 1 VIAL SQ SCH ×3 (12:28→21:59)
--- NOTE | 2019-10-30 14:59 | EKG ---
Test Reason : Blood Pressure : / mmHG Vent. Rate : 079 BPM Atrial Rate : 079 BPM P-R Int : 144 ms QRS Dur : 098 ms QT Int : 404 ms P-R-T Axes : 270 063 056 degrees QTc Int : 463 ms UNUSUAL P AXIS, POSSIBLE ECTOPIC ATRIAL RHYTHM WITH UNDETERMINED RHYTHM IRREGULARITY ABNORMAL ECG WHEN COMPARED WITH ECG OF 16-FEB-2019 13:29, ECTOPIC ATRIAL RHYTHM HAS REPLACED SINUS RHYTHM Confirmed by SHAHID CONDE MD ([id number]) on 10/30/2019 2:58:46 PM Referred By: Confirmed By:SHAHID CONDE MD
[2019-10-30] MEDS ORDERED: oxyCODONE HCL 5 MG TABLET PO PRN (18:02)
--- NOTE | 2019-10-30 18:02 | HP ---
CHIEF COMPLAINT: PCP: HISTORY OF PRESENT ILLNESS: 49 year old male with past medical history of Alcohol abuse, HTN, HLD, DM, BPH, chronic pancreatitis, s/p gastric sleeve, Hx of herniated discs in his back, who presented to the ED with left arm pain and numbness with chest discomfort that started . The pain comes and goes and was the worst it's ever been today where he was sitting in a chair watching TV when the pain started. The pain starts in the shoulder area and radiates down his left arm with associated numbness. 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 Reproduction of his pain happens on abduction of his arm upwards or palpation of his cervical spine. The patient also reports drinking a 6 pack of beer daily on weekdays and about a 12 pack on weekends. The patient's last drink was yesterday. Recent Travel: PAST MEDICAL HISTORY: Alcohol abuse, HTN, HLD, DM PAST SURGICAL HISTORY: s/p gastric sleeve Social History: Smoking: Medical Marijuana Alcohol: 6 pack of beer per day on weekdays and 12 pack of beer per day on the weekends. Drugs: Oxycodone from pain doctor, Librium from pharmacy (confirmed with pharmacist) Allergies No Known Allergies Allergy (Verified 10/30/19 09:49) HOME MEDICATIONS: Home Medications Medication Instructions Recorded Furosemide [Lasix] 40 mg PO DAILY 09/03/17 Tamsulosin HCl 0.4 mg PO DAILY 09/03/17 Zolpidem Tartrate [Ambien] 5 mg PO HS 09/03/17 oxyCODONE HCL [Roxicodone -] 20 mg PO Q6H 09/03/17 Magnesium Oxide [Mag-Ox -] 400 mg PO BID 30 Days #60 tablet 09/06/17 metFORMIN HCL [Metformin HCl] 500 mg PO BIDAC #30 tablet 02/20/18 Gabapentin 600 mg PO TID 05/28/18 Spironolactone [Aldactone -] 25 mg PO DAILY 05/28/18 Cyclobenzaprine HCl [Flexeril -] 10 mg PO HS #10 tablet 11/16/18 Duloxetine HCl 30 mg PO DAILY 11/18/18 Ergocalciferol (Vitamin D2) 50,000 unit PO WEEKLY 11/18/18 [Vitamin D2] Acetaminophen [Tylenol .Regular 650 mg PO Q4H PRN tablet 11/19/18 Strength -] Folic Acid - 1 mg PO DAILY #30 tablet 11/19/18 Thiamine HCl [Vitamin B1 -] 100 mg PO DAILY #30 tablet 11/19/18 levETIRAcetam [Keppra -] 1,250 mg PO BID #300 tablet 11/19/18 REVIEW OF SYSTEMS CONSTITUTIONAL: Absent: fever, chills, diaphoresis CARDIOVASCULAR: chest discomfort, feels his heart beating when pain comes on GASTROINTESTINAL: Absent: nausea, vomiting, diarrhea GENITOURINARY: hesitancy/difficulty with urination MUSCULOSKELETAL: radiculopathy down left arm NEUROLOGIC: weakness and numbness in left arm PSYCHIATRIC: Absent: anxiety, suicidal or homicidal ideation PHYSICAL EXAMINATION Vital Signs - 24 hr 10/30/19 10/30/19 10/30/19 04:49 06:06 09:17 Temperature 98.2 F 98.0 F Pulse Rate 88 Pulse Rate [ 82 Right] Respiratory 18 16 Rate Blood Pressure 132/85 Blood Pressure 136/85 [Arm] O2 Sat by Pulse 95 96 99 Oximetry (%) 10/30/19 10/30/19 10/30/19 10:29 15:30 17:17 Temperature 98.1 F 98.0 F Pulse Rate Pulse Rate [ 81 79 Right] Respiratory 18 18 18 Rate Blood Pressure Blood Pressure 129/87 131/85 [Arm] O2 Sat by Pulse 98 98 98 Oximetry (%) GENERAL: Awake, alert, and fully oriented, in no acute distress. HEAD: Normal with no signs of trauma. EYES: Pupils equal, round and reactive to light, extraocular movements intact. No lid lag. EARS, NOSE, THROAT: Ears normal, nares patent, oropharynx clear without exudates. Moist mucous membranes. NECK: Normal range of motion, supple without lymphadenopathy, JVD, or masses. LUNGS: Breath sounds equal, clear to auscultation bilaterally. No wheezes, and no crackles. No accessory muscle use. HEART: Regular rate and rhythm, normal S1 and S2 without murmur, rub or gallop. ABDOMEN: Soft, nontender, not distended, normoactive bowel sounds, no guarding, no rebound, no masses. Hepatomegaly but no splenomegaly. MUSCULOSKELETAL: Normal range of motion at all joints. No bony deformities or tenderness. UPPER EXTREMITIES: Reproduction of pain and radiculopathy with abduction of shoulder above the head and with palpation of cervical spine. 2+ pulses, warm, well-perfused. No cyanosis. No clubbing. No peripheral edema. LOWER EXTREMITIES: 2+ pulses, warm, well-perfused. No calf tenderness. bilateral leg edema. NEUROLOGICAL: +4/5 muscle strength LUE. Partial numbness in LUE. Normal speech. Normal gait. PSYCHIATRIC: Cooperative. Good eye contact. Appropriate mood and affect. SKIN: Yellowish skin. Warm, dry, normal turgor, normal capillary refill. Laboratory Results - last 24 hr 10/30/19 10/30/19 10/30/19 05:19 05:19 05:19 WBC 6.3 RBC 3.85 L Hgb 13.2 Hct 39.1 D MCV 101.7 H MCH 34.3 H MCHC 33.7 RDW 15.8 D Plt Count 115 L D MPV 8.3 D Absolute Neuts (auto) 3.2 Neutrophils % 51.1 Lymphocytes % 35.7 Monocytes % 9.0 Eosinophils % 3.3 D Basophils % 0.9 Nucleated RBC % 0 PT with INR 16.60 H INR 1.40 H Sodium Potassium Chloride Carbon Dioxide Anion Gap BUN Creatinine Est GFR (CKD-EPI)AfAm Est GFR (CKD-EPI)NonAf POC Glucometer Random Glucose Calcium Total Bilirubin Direct Bilirubin AST ALT Alkaline Phosphatase Creatine Kinase Creatine Kinase Index CK-MB (CK-2) Troponin I Total Protein Albumin Lipase TSH Free T4 Urine Color Dk yellow Urine Appearance Clear Urine pH 8.5 H D Ur Specific [place] 1.013 Urine Protein Negative Urine Glucose (UA) Negative Urine Ketones Negative Urine Blood Negative Urine Nitrite Negative Urine Bilirubin 1+ H Urine Urobilinogen 2.0 Ur Leukocyte Esterase Negative Opiates Screen Methadone Screen Barbiturate Screen Phencyclidine Screen Ur Amphetamines Screen MDMA (Ecstasy) Screen Benzodiazepines Screen Cocaine Screen U Marijuana (THC) Screen Alcohol, Quantitative 10/30/19 10/30/19 10/30/19 05:19 05:19 05:19 WBC RBC Hgb Hct MCV MCH MCHC RDW Plt Count MPV Absolute Neuts (auto) Neutrophils % Lymphocytes % Monocytes % Eosinophils % Basophils % Nucleated RBC % PT with INR INR Sodium 144 Potassium 3.5 Chloride 107 Carbon Dioxide 27 Anion Gap 10 BUN 5.4 L Creatinine 0.6 Est GFR (CKD-EPI)AfAm 136.83 Est GFR (CKD-EPI)NonAf 118.06 POC Glucometer Random Glucose 127 H Calcium 8.2 L Total Bilirubin 2.6 H Direct Bilirubin AST 151 H ALT 53 Alkaline Phosphatase 174 H Creatine Kinase 308 Creatine Kinase Index 1.2 CK-MB (CK-2) 3.7 H Troponin I < 0.02 Total Protein 7.5 Albumin 2.5 L Lipase 524 H TSH 3.88 H D Free T4 Urine Color Urine Appearance Urine pH Ur Specific [place] Urine Protein Urine Glucose (UA) Urine Ketones Urine Blood Urine Nitrite Urine Bilirubin Urine Urobilinogen Ur Leukocyte Esterase Opiates Screen Positive A* Methadone Screen Negative Barbiturate Screen Negative Phencyclidine Screen Negative Ur Amphetamines Screen Negative MDMA (Ecstasy) Screen Negative Benzodiazepines Screen Positive A* Cocaine Screen Negative U Marijuana (THC) Screen Positive A* Alcohol, Quantitative 10/30/19 10/30/19 10/30/19 05:19 10:00 10:00 WBC RBC Hgb Hct MCV MCH MCHC RDW Plt Count MPV Absolute Neuts (auto) Neutrophils % Lymphocytes % Monocytes % Eosinophils % Basophils % Nucleated RBC % PT with INR INR Sodium Potassium Chloride Carbon Dioxide Anion Gap BUN Creatinine Est GFR (CKD-EPI)AfAm Est GFR (CKD-EPI)NonAf POC Glucometer Random Glucose Calcium Total Bilirubin Direct Bilirubin 1.7 H AST ALT Alkaline Phosphatase Creatine Kinase Creatine Kinase Index CK-MB (CK-2) Troponin I < 0.02 Total Protein Albumin Lipase TSH Free T4 1.12 Urine Color Urine Appearance Urine pH Ur Specific [place] Urine Protein Urine Glucose (UA) Urine Ketones Urine Blood Urine Nitrite Urine Bilirubin Urine Urobilinogen Ur Leukocyte Esterase Opiates Screen Methadone Screen Barbiturate Screen Phencyclidine Screen Ur Amphetamines Screen MDMA (Ecstasy) Screen Benzodiazepines Screen Cocaine Screen U Marijuana (THC) Screen Alcohol, Quantitative 303.4 H 10/30/19 10/30/19 11:24 17:45 WBC RBC Hgb Hct MCV MCH MCHC RDW Plt Count MPV Absolute Neuts (auto) Neutrophils % Lymphocytes % Monocytes % Eosinophils % Basophils % Nucleated RBC % PT with INR INR Sodium Potassium Chloride Carbon Dioxide Anion Gap BUN Creatinine Est GFR (CKD-EPI)AfAm Est GFR (CKD-EPI)NonAf POC Glucometer 98 109 Random Glucose Calcium Total Bilirubin Direct Bilirubin AST ALT Alkaline Phosphatase Creatine Kinase Creatine Kinase Index CK-MB (CK-2) Troponin I Total Protein Albumin Lipase TSH Free T4 Urine Color Urine Appearance Urine pH Ur Specific [place] Urine Protein Urine Glucose (UA) Urine Ketones Urine Blood Urine Nitrite Urine Bilirubin Urine Urobilinogen Ur Leukocyte Esterase Opiates Screen Methadone Screen Barbiturate Screen Phencyclidine Screen Ur Amphetamines Screen MDMA (Ecstasy) Screen Benzodiazepines Screen Cocaine Screen U Marijuana (THC) Screen Alcohol, Quantitative ASSESSMENT/PLAN: 49 year old male with past medical history of Alcohol abuse, HTN, HLD, DM, BPH, chronic pancreatitis, s/p gastric sleeve, Hx of herniated discs in his back, who presented to the ED with left arm pain and numbness with chest discomfort that started . 1. Left radiculopathy secondary to pinched nerve - pain reproducable with abduction of shoulder and palpation of cervical spine - MRI - Pain on abduction of shoulder upwards - Shoulder x-ray - Neurology consult 2. Alcohol withdrawal - CIWA score 0 - Patient reports drinking a 6 pack daily - Monitoring CIWA score - Alcohol level 303 - Banana Bag - The patient is taking Thiamin, Folic Acid, Vit B12 3. r/o ACS - ECG shows NSR - troponins neg Macrocytosis secondary to chronic alcohol use - Vitamin b12 and folic acid labs ordered Elevated lipase - The patient has chronic pancreatitis history BPH - The patient is taking tamsulosin 4. DM - ISS 5. HTN - The patient is taking spirinolactone DVT PPx - Heparin Sq Dispo - Waiting for MRI Visit type - Emergency Visit Emergency Visit: Yes ED Registration Date: 10/30/19 Care time: The patient presented to the Emergency Department on the above date and was hospitalized for further evaluation of their emergent condition. - New Patient This patient is new to me today: Yes Date on this admission: 10/30/19 - Critical Care Critical Care patient: No ATTENDING PHYSICIAN STATEMENT I saw and evaluated the patient. I reviewed the resident's note and discussed the case with the resident. I agree with the resident's findings and plan as documented. SUBJECTIVE: OBJECTIVE: ASSESSMENT AND PLAN:
--- NOTE | 2019-10-30 18:19 | PN ---
Teaching Attending Note Name of Resident: Jomar Craven ATTENDING PHYSICIAN STATEMENT I saw and evaluated the patient. I reviewed the resident's note and discussed the case with the resident. I agree with the resident's findings and plan as documented. SUBJECTIVE: Complains of Neck pain radiating down to shoulder, L chest, arm with altered sensation LUE. No headache/visual disturbance. OBJECTIVE: Afebrile, Hemodynamically Stable. Last Vital Signs Temp Pulse Resp BP Pulse Ox 98.0 F 79 18 131/85 98 10/30/19 15:30 10/30/19 15:30 10/30/19 17:17 10/30/19 15:30 10/30/19 17:17 HEENT - Atraumatic, Normocephalic. C-Spine tenderness Heart - S1, S2, RRR Lungs - clear to auscultation Abdomen - Soft, non-tender. Bowel Sounds normal. Extremities - Edema+. No calf tenderness. MS - C-Spine tenderness, unable to extend or abduct shoulder fully due to pain. Laboratory Results - last 24 hr 10/30/19 10/30/19 10/30/19 05:19 05:19 05:19 WBC 6.3 RBC 3.85 L Hgb 13.2 Hct 39.1 D MCV 101.7 H MCH 34.3 H MCHC 33.7 RDW 15.8 D Plt Count 115 L D MPV 8.3 D Absolute Neuts (auto) 3.2 Neutrophils % 51.1 Lymphocytes % 35.7 Monocytes % 9.0 Eosinophils % 3.3 D Basophils % 0.9 Nucleated RBC % 0 PT with INR 16.60 H INR 1.40 H Sodium Potassium Chloride Carbon Dioxide Anion Gap BUN Creatinine Est GFR (CKD-EPI)AfAm Est GFR (CKD-EPI)NonAf POC Glucometer Random Glucose Calcium Total Bilirubin Direct Bilirubin AST ALT Alkaline Phosphatase Creatine Kinase Creatine Kinase Index CK-MB (CK-2) Troponin I Total Protein Albumin Lipase TSH Free T4 Urine Color Dk yellow Urine Appearance Clear Urine pH 8.5 H D Ur Specific [place] 1.013 Urine Protein Negative Urine Glucose (UA) Negative Urine Ketones Negative Urine Blood Negative Urine Nitrite Negative Urine Bilirubin 1+ H Urine Urobilinogen 2.0 Ur Leukocyte Esterase Negative Opiates Screen Methadone Screen Barbiturate Screen Phencyclidine Screen Ur Amphetamines Screen MDMA (Ecstasy) Screen Benzodiazepines Screen Cocaine Screen U Marijuana (THC) Screen Alcohol, Quantitative 10/30/19 10/30/19 10/30/19 05:19 05:19 05:19 WBC RBC Hgb Hct MCV MCH MCHC RDW Plt Count MPV Absolute Neuts (auto) Neutrophils % Lymphocytes % Monocytes % Eosinophils % Basophils % Nucleated RBC % PT with INR INR Sodium 144 Potassium 3.5 Chloride 107 Carbon Dioxide 27 Anion Gap 10 BUN 5.4 L Creatinine 0.6 Est GFR (CKD-EPI)AfAm 136.83 Est GFR (CKD-EPI)NonAf 118.06 POC Glucometer Random Glucose 127 H Calcium 8.2 L Total Bilirubin 2.6 H Direct Bilirubin AST 151 H ALT 53 Alkaline Phosphatase 174 H Creatine Kinase 308 Creatine Kinase Index 1.2 CK-MB (CK-2) 3.7 H Troponin I < 0.02 Total Protein 7.5 Albumin 2.5 L Lipase 524 H TSH 3.88 H D Free T4 Urine Color Urine Appearance Urine pH Ur Specific [place] Urine Protein Urine Glucose (UA) Urine Ketones Urine Blood Urine Nitrite Urine Bilirubin Urine Urobilinogen Ur Leukocyte Esterase Opiates Screen Positive A* Methadone Screen Negative Barbiturate Screen Negative Phencyclidine Screen Negative Ur Amphetamines Screen Negative MDMA (Ecstasy) Screen Negative Benzodiazepines Screen Positive A* Cocaine Screen Negative U Marijuana (THC) Screen Positive A* Alcohol, Quantitative 10/30/19 10/30/19 10/30/19 05:19 10:00 10:00 WBC RBC Hgb Hct MCV MCH MCHC RDW Plt Count MPV Absolute Neuts (auto) Neutrophils % Lymphocytes % Monocytes % Eosinophils % Basophils % Nucleated RBC % PT with INR INR Sodium Potassium Chloride Carbon Dioxide Anion Gap BUN Creatinine Est GFR (CKD-EPI)AfAm Est GFR (CKD-EPI)NonAf POC Glucometer Random Glucose Calcium Total Bilirubin Direct Bilirubin 1.7 H AST ALT Alkaline Phosphatase Creatine Kinase Creatine Kinase Index CK-MB (CK-2) Troponin I < 0.02 Total Protein Albumin Lipase TSH Free T4 1.12 Urine Color Urine Appearance Urine pH Ur Specific [place] Urine Protein Urine Glucose (UA) Urine Ketones Urine Blood Urine Nitrite Urine Bilirubin Urine Urobilinogen Ur Leukocyte Esterase Opiates Screen Methadone Screen Barbiturate Screen Phencyclidine Screen Ur Amphetamines Screen MDMA (Ecstasy) Screen Benzodiazepines Screen Cocaine Screen U Marijuana (THC) Screen Alcohol, Quantitative 303.4 H 10/30/19 10/30/19 11:24 17:45 WBC RBC Hgb Hct MCV MCH MCHC RDW Plt Count MPV Absolute Neuts (auto) Neutrophils % Lymphocytes % Monocytes % Eosinophils % Basophils % Nucleated RBC % PT with INR INR Sodium Potassium Chloride Carbon Dioxide Anion Gap BUN Creatinine Est GFR (CKD-EPI)AfAm Est GFR (CKD-EPI)NonAf POC Glucometer 98 109 Random Glucose Calcium Total Bilirubin Direct Bilirubin AST ALT Alkaline Phosphatase Creatine Kinase Creatine Kinase Index CK-MB (CK-2) Troponin I Total Protein Albumin Lipase TSH Free T4 Urine Color Urine Appearance Urine pH Ur Specific [place] Urine Protein Urine Glucose (UA) Urine Ketones Urine Blood Urine Nitrite Urine Bilirubin Urine Urobilinogen Ur Leukocyte Esterase Opiates Screen Methadone Screen Barbiturate Screen Phencyclidine Screen Ur Amphetamines Screen MDMA (Ecstasy) Screen Benzodiazepines Screen Cocaine Screen U Marijuana (THC) Screen Alcohol, Quantitative Current Medications Generic Name Dose Route Start Last Admin Trade Name Freq PRN Reason Stop Dose Admin Acetaminophen 650 mg 10/30/19 09:13 Tylenol - PO Q4H PRN PAIN LEVEL 4 - 6 Insulin Aspart 1 vial 10/30/19 11:00 10/30/19 12:28 Novolog Vial Sliding Scale - SQ Not Given ACHS LALITHA Protocol Oxycodone HCl 30 mg 10/30/19 18:02 Roxicodone - PO DAILY PRN PAIN LEVEL 7 - 10 ASSESSMENT AND PLAN: 49 year old male with past medical history of Alcohol abuse, Liver Cirrhosis, HT N, HLD, DM 2, BPH, Obesity s/p gastric sleeve, Depression, Hx of C/T spine herniated discs, L Shoulder dislocation, presented to the ED with complaints of neck pain radiating down to shoulder, L chest, L arm with altered sensation LUE. 1. 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 L shoulder Xray requested to exclude dislocation. Neurosurgery consult. On chronic opiates. Proper Med reconciliation and iSTOp to be checked. 2. History of Alcohol Excess and Liver Cirrhosis Alc level 303 Monitor for Alcohol withdrawal and start Ativan as per CIWA if needed. Monitor electrolytes. Banana Bag Thiamine, MVI, Folic Acid. 3. LE edema ?sec to Cirrhosis/Hypoalbuminemia On Lasix daily. Echo requested. 4. DM 2 - Hold oral anti-hyperglycemics. Novolog as per sliding scale. 5. BPH - on Tamsulosin 6. HTN - on Spironolactone 7. Depression - Continue Duloxetine. 8. Macrocytosis/Thrombocytopenia - likely sec to Cirrhosis/Alcohol excess. Will send B12/Folate levels. DVT Px - Lovenox SQ.
[2019-10-30] MEDS: ACETAMINOPHEN 325 MG TABLET (FP) PO PRN (18:22)
[2019-10-30] MEDS ORDERED: FOLIC ACID INJECTION - 1 MG, THIAMINE HCL 100 MG, MULTIVIT INJECTION ADULT 10 ML in SOD... IVPB ONE (18:28)
[2019-10-30] MEDS: THIAMINE HCL 100 MG TABLET (FP) PO SCH (19:09)
[2019-10-30] MEDS: FOLIC ACID 1 MG TABLET (FP) PO SCH (19:09)
[2019-10-30] MEDS ORDERED: LORazepam 1 MG TABLET PO PRN (19:44)
[2019-10-30] MEDS ORDERED: levETIRAcetam 250 MG TABLET PO ONE (21:52)
[2019-10-30] MEDS ORDERED: levETIRAcetam 500 MG TABLET (FP) PO ONE (21:52)
[2019-10-30] MEDS: GABAPENTIN 300 MG CAPSULE PO SCH (21:56)
[2019-10-30] MEDS: ZOLPIDEM TARTRATE 5 MG TABLET PO PRN (21:56)
[2019-10-30] MEDS: HEPARIN NA (PORCINE) 5,000 UNITS/ML 1ML VIAL SQ SCH (21:56)
[2019-10-30] MEDS ORDERED: levETIRAcetam 250 MG TABLET PO SCH (22:00)
[2019-10-30] MEDS: LORazepam 1 MG TABLET PO SCH (23:26)
[2019-10-30] MEDS: CYANOCOBALAMIN (VITAMIN B-12) 100 MCG TABLET PO SCH (23:26)
[2019-10-31] MEDS: GABAPENTIN 300 MG CAPSULE PO SCH ×3 (05:36→21:03)
[2019-10-31] MEDS: LORazepam 1 MG TABLET PO SCH ×4 (05:36→23:50)
[2019-10-31] MEDS: HEPARIN NA (PORCINE) 5,000 UNITS/ML 1ML VIAL SQ SCH (05:37)
[2019-10-31] MEDS: ACETAMINOPHEN 325 MG TABLET (FP) PO PRN (05:43)
[2019-10-31] MEDS: INSULIN SLIDING SCALE (NOVOLOG) 1 VIAL SQ SCH ×4 (06:02→21:04)
[2019-10-31] MEDS: TAMSULOSIN HCL 0.4 MG CAP PO SCH (08:10)
[2019-10-31 08:24] LABS: HEMATOCRIT 35.1 % (35.4-49); HEMOGLOBIN 11.8 GM/dL (11.7-16.9); MCH 34.3 pg (25.7-33.7); MCHC 33.5 g/dl (32.0-35.9); MEAN CELL VOLUME 102.3 fl (80-96); MEAN PLT VOLUME 8.4 fl (7.5-11.1); PLATELET COUNT 61 K/MM3 (134-434); RBC 3.43 M/mm3 (4.00-5.60)
[2019-10-31 08:28] LABS: INR 1.56 (0.83-1.09); PROTHROMBIN TIME (PATIENT) 18.5 SEC (9.7-13.0)
--- NOTE | 2019-10-31 08:42 | PN ---
Progress Note (short form) - Note Progress Note: NEUROSURGERY CONSULT DICTATED Chart reviewed history obtained Pt examined H/o EtOH abuse, chronic pancreatitis, HTN, HLD, DM, BPH, obesity s/p gastric sleeve, Lumbar DDD with L sciatica, dislocated L shoulder, c/o left arm pain and numbness with chest discomfort x 2-3 days. Pain has occurred periodically for the past couple years. Sitting in a chair watching TV when pain started. The pain starts in L shoulder area and radiates down his L arm with associated num bness. Wellman anxious and palptation with recent episode. Denies Lhermitte's sign. No B/B dysfunction. PE: AF, VSS General- unremarkable; Neck- mild tenderness L trappedius and supraspinatus; decreased L lat bending CN- intact; Motor- 5/5 except L shoulder abduction 4-; sensatio- intact LT; DTR- 1-2+ and symmetric Elevated LFT and INR; tox screen noted MRI C spine- mild spondylosis; L C3-4 and C4-5 uncovertebral joint hypertrophy, mild L C3-4 and C4-5 foramenal stenosis EtOH abuse/dependence with hepatic and pancreatic dysfunction C3-4 DDD with endplate sclerosis and mild kyphosis/L C3-4 adn C4-5 foramenal stenosis Cont neurontin Start PT If persistent symptoms beyond 3-4 weeks of medical tx, obtain EMG prior to further recommendations Surgery should not be undertaken lightly given his EtOH and DM Given self described palpitation, DM and family h/o cardiac dz consider cardiac eval per admitting team Decreased EtOH intake and professional assistance for EtOHadvised
[2019-10-31 08:50] LABS: ALBUMIN 2.1 g/dl (3.4-5.0); BILIRUBIN,TOTAL 3.3 mg/dL (0.2-1); BLOOD UREA NITROGEN 4.6 mg/dL (7-18); CALCIUM 7.5 mg/dL (8.5-10.1); CREATININE 0.4 mg/dL (0.55-1.3); MAGNESIUM 1.1 mg/dL (1.8-2.4); PHOSPHOROUS 2.8 mg/dL (2.5-4.9); TOT PROT 6.3 g/dl (6.4-8.2)
[2019-10-31] MEDS ORDERED: levETIRAcetam 500 MG TABLET (FP) PO ONE ×2 (09:25→20:53)
[2019-10-31] MEDS ORDERED: levETIRAcetam 250 MG TABLET PO ONE ×2 (09:25→20:53)
[2019-10-31] MEDS ORDERED: PT OWN MED DRAWER 7, Y5N ONE (09:25)
[2019-10-31] MEDS: FUROSEMIDE 40 MG TABLET (FP) PO SCH (09:47)
[2019-10-31] MEDS: THIAMINE HCL 100 MG TABLET (FP) PO SCH (09:47)
[2019-10-31] MEDS: CYANOCOBALAMIN (VITAMIN B-12) 100 MCG TABLET PO SCH (09:47)
[2019-10-31] MEDS: SPIRONOLACTONE 25 MG TABLET PO SCH (09:47)
[2019-10-31] MEDS: DULoxetine HCL 30 MG CAPSULE.DR PO SCH (09:47)
[2019-10-31] MEDS: FOLIC ACID 1 MG TABLET (FP) PO SCH (09:47)
[2019-10-31] MEDS ORDERED: MAGNESIUM SULF 50% (8.12 MEQ/2 ML-1 GM VIAL) IVPB ONE (13:28)
--- NOTE | 2019-10-31 13:31 | PN ---
Progress Note (short form) - Note Progress Note: SUBJECTIVE: Improving Neck pain radiating down to shoulder, L chest, arm with altered sensation LUE. No headache/visual disturbance. OBJECTIVE: Afebrile, Hemodynamically Stable. Last Vital Signs Temp Pulse Resp BP Pulse Ox 98.7 F 69 19 133/81 97 10/31/19 09:44 10/31/19 09:44 10/31/19 09:44 10/31/19 09:44 10/31/19 09:00 HEENT - Atraumatic, Normocephalic. C-Spine tenderness Heart - S1, S2, RRR Lungs - clear to auscultation Abdomen - Soft, non-tender. Bowel Sounds normal. Extremities - Edema+. No calf tenderness. MS - C-Spine tenderness, unable to extend or abduct shoulder fully due to pain. Laboratory Results - last 24 hr 10/30/19 10/30/19 10/31/19 17:45 21:55 05:35 WBC RBC Hgb Hct MCV MCH MCHC RDW Plt Count MPV PT with INR INR Sodium Potassium Chloride Carbon Dioxide Anion Gap BUN Creatinine Est GFR (CKD-EPI)AfAm Est GFR (CKD-EPI)NonAf POC Glucometer 109 100 79 Random Glucose Calcium Phosphorus Magnesium Total Bilirubin AST ALT Alkaline Phosphatase Total Protein Albumin Vitamin B12 Serum Folate TSH 10/31/19 10/31/19 10/31/19 07:00 07:00 07:00 WBC 3.0 L RBC 3.43 L Hgb 11.8 Hct 35.1 L MCV 102.3 H MCH 34.3 H MCHC 33.5 RDW 15.0 Plt Count 61 L D MPV 8.4 PT with INR 18.50 H INR 1.56 H Sodium 139 Potassium 3.0 L Chloride 105 Carbon Dioxide 25 Anion Gap 10 BUN 4.6 L Creatinine 0.4 L Est GFR (CKD-EPI)AfAm 161.65 Est GFR (CKD-EPI)NonAf 139.47 POC Glucometer Random Glucose 70 L Calcium 7.5 L Phosphorus 2.8 Magnesium 1.1 L Total Bilirubin 3.3 H AST 112 H ALT 41 Alkaline Phosphatase 128 H Total Protein 6.3 L Albumin 2.1 L Vitamin B12 978 Serum Folate 21 H TSH 1.20 D Current Medications Generic Name Dose Route Start Last Admin Trade Name Freq PRN Reason Stop Dose Admin Acetaminophen 650 mg 10/30/19 09:13 10/31/19 05:43 Tylenol - PO 650 mg Q4H PRN Administration PAIN LEVEL 4 - 6 Cyanocobalamin 100 mcg 10/30/19 18:30 10/31/19 09:47 Vitamin B12 - PO 100 mcg DAILY LALITHA Administration Duloxetine HCl 30 mg 10/31/19 10:00 10/31/19 09:47 Cymbalta - PO 30 mg DAILY LALITHA Administration Folic Acid 1 mg 10/30/19 18:30 10/31/19 09:47 Folic Acid - PO 1 mg DAILY LALITHA Administration Furosemide 40 mg 10/31/19 10:00 10/31/19 09:47 Lasix - PO 40 mg DAILY LALITHA Administration Gabapentin 600 mg 10/30/19 22:00 10/31/19 05:36 Neurontin - PO 600 mg TID LALITHA Administration Heparin Sodium (Porcine) 5,000 unit 10/30/19 22:00 10/31/19 05:37 Heparin - SQ 5,000 unit TID LALITHA Administration Potassium Chloride 10 meq in 100 mls @ 100 mls/hr 10/31/19 13:30 Potassium Chloride 10 Meq Premix Ivpb - IVPB 10/31/19 16:29 Q60M LALITHA Magnesium Sulfate 2 gm in 50 mls @ 50 mls/hr 10/31/19 13:30 Magnesium Sulf 2 G/50 Ml Bag IVPB 10/31/19 15:29 Q1H [facility] Insulin Aspart 1 vial 10/30/19 11:00 10/31/19 11:31 Novolog Vial Sliding Scale - SQ Not Given ACHS [facility] Protocol Levetiracetam 1,000 mg/ 1,250 mg 10/30/19 22:00 10/31/19 09:46 Levetiracetam 250 mg PO 1,250 mg BID LALITHA Administration Lorazepam 1 mg 11/01/19 05:00 Ativan - PO 11/01/19 23:01 0500,1100,1700,2300 LALITHA Lorazepam 1 mg 10/30/19 19:44 10/30/19 20:23 Ativan - PO 11/01/19 23:59 1 mg Q4H PRN Administration Symptoms of Withdrawal Lorazepam 2 mg 10/30/19 23:00 10/31/19 11:25 Ativan - PO 10/31/19 23:01 2 mg 0500,1100,1700,2300 LALITHA Administration Lorazepam 0.5 mg 11/02/19 05:00 Ativan - PO 11/02/19 23:01 Q6H LALITHA Lorazepam 0.5 mg 11/02/19 00:00 Ativan - PO 11/02/19 23:59 Q4H PRN Symptoms of Withdrawal Lorazepam 0.5 mg 11/03/19 05:00 Ativan - PO 11/03/19 05:01 ONCE ONE Oxycodone HCl 30 mg 10/30/19 18:52 Roxicodone - PO Q8H PRN PAIN LEVEL 7 - 10 Spironolactone 25 mg 10/31/19 10:00 10/31/19 09:47 Aldactone - PO 25 mg DAILY LALITHA Administration Tamsulosin HCl 0.4 mg 10/31/19 08:30 10/31/19 08:10 Flomax - PO 0.4 mg DAILY@0830 LALITHA Administration Thiamine HCl 100 mg 10/30/19 18:30 10/31/19 09:47 Vitamin B1 - PO 100 mg DAILY LALITHA Administration Zolpidem Tartrate 5 mg 10/30/19 22:00 10/30/19 21:56 Ambien - PO 5 mg HS PRN Administration INSOMNIA Home Medications Medication Instructions Recorded Furosemide [Lasix] 40 mg PO DAILY 09/03/17 Tamsulosin HCl 0.4 mg PO DAILY 09/03/17 Zolpidem Tartrate [Ambien] 5 mg PO HS 09/03/17 oxyCODONE HCL [Roxicodone -] 30 mg PO Q6H 09/03/17 metFORMIN HCL [Metformin HCl] 500 mg PO BIDAC #30 tablet 02/20/18 Gabapentin 600 mg PO TID 05/28/18 Spironolactone [Aldactone -] 25 mg PO DAILY 05/28/18 Duloxetine HCl 30 mg PO DAILY 11/18/18 Ergocalciferol (Vitamin D2) 50,000 unit PO WEEKLY 11/18/18 [Vitamin D2] Folic Acid - 1 mg PO DAILY #30 tablet 11/19/18 Thiamine HCl [Vitamin B1 -] 100 mg PO DAILY #30 tablet 11/19/18 Cyclobenzaprine HCl [Flexeril -] 10 mg PO TID 10/30/19 levETIRAcetam [Keppra -] 1,250 mg PO TID 10/30/19 ASSESSMENT AND PLAN: 49 year old male with past medical history of Alcohol abuse, Liver Cirrhosis, HTN, HLD, DM 2, BPH, Obesity s/p gastric sleeve, Depression, Hx of C/T spine herniated discs, L Shoulder dislocation, presented to the ED with complaints of neck pain radiating down to shoulder, L chest, L arm with altered sensation LUE. 1. 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 Neurosurgery consulted - no surgical intervention recommended. If persistent symptoms in 3-4 weeks, Neurosurgery recommends EMG and out-patient follow up. Continue Neurontin. On chronic opiates. 2. History of Alcohol Excess and Liver Cirrhosis with Acute Alcohol withdrawal Alc level 303 Ativan as per [facility] protocol Thiamine, MVI, Folic Acid. 3. Hypokalemia/Hypomagnesemia - repleted. 4. LE edema ?sec to Cirrhosis/Hypoalbuminemia On Lasix daily. Echo requested. 5. DM 2 - Hold oral anti-hyperglycemics. Novolog as per sliding scale. 6. BPH - on Tamsulosin 7. HTN - on Spironolactone 8. Depression - Continue Duloxetine. 9. Macrocytosis/Thrombocytopenia - sec to Cirrhosis/Alcohol excess. B12/Folate levels normal. DVT Px - SCDs. Heparin held due to Thrombocytopenia. Visit type - Emergency Visit Emergency Visit: Yes ED Registration Date: 10/30/19 Care time: The patient presented to the Emergency Department on the above date and was hospitalized for further evaluation of their emergent condition. - New Patient This patient is new to me today: No - Critical Care Critical Care patient: No - Discharge Referral Referred to [facility] No
[2019-10-31] MEDS: KCL 10 MEQ IVPB 10 MEQ/100 ML INFUS.BAG IVPB SCH ×3 (14:34→19:08)
[2019-10-31] MEDS: MAGNESIUM SULFATE IN WATER 2 GM/50 ML IVPB IVPB SCH ×2 (14:34→16:11)
[2019-10-31] MEDS: oxyCODONE HCL 5 MG TABLET PO PRN (15:44)
[2019-11-01 00:52] LABS: BLOOD UREA NITROGEN 6.5 mg/dL (7-18); CALCIUM 7.7 mg/dL (8.5-10.1); CREATININE 0.5 mg/dL (0.55-1.3); MAGNESIUM 1.7 mg/dL (1.8-2.4); PHOSPHOROUS 2.4 mg/dL (2.5-4.9); POTASSIUM 3.2 mmol/L (3.5-5.1)
[2019-11-01] MEDS ORDERED: NAPH,MB-DB/K PH,MBDB POWDER PACKET PO ONE (01:38)
[2019-11-01] MEDS ORDERED: MAGNESIUM SULF 50% (8.12 MEQ/2 ML-1 GM VIAL) IVPB ONE (01:38)
[2019-11-01] MEDS ORDERED: MAGNESIUM 1GM/D5W - 1 GM/100 ML IVPB IVPB ONE (02:00)
[2019-11-01] MEDS: ACETAMINOPHEN 325 MG TABLET (FP) PO PRN ×2 (02:06→17:52)
[2019-11-01] MEDS: KCL 10 MEQ IVPB 10 MEQ/100 ML INFUS.BAG IVPB SCH ×6 (02:07→13:30)
[2019-11-01] MEDS: LORazepam 1 MG TABLET PO SCH ×4 (05:18→23:01)
[2019-11-01] MEDS: GABAPENTIN 300 MG CAPSULE PO SCH ×3 (05:18→21:33)
[2019-11-01] MEDS: INSULIN SLIDING SCALE (NOVOLOG) 1 VIAL SQ SCH ×4 (06:41→21:33)
[2019-11-01] MEDS: TAMSULOSIN HCL 0.4 MG CAP PO SCH (08:04)
--- NOTE | 2019-11-01 09:15 | EKG ---
Test Reason : Blood Pressure : / mmHG Vent. Rate : 085 BPM Atrial Rate : 085 BPM P-R Int : 152 ms QRS Dur : 096 ms QT Int : 438 ms P-R-T Axes : 057 039 024 degrees QTc Int : 521 ms NORMAL SINUS RHYTHM WITH SINUS ARRHYTHMIA PROLONGED QT ABNORMAL ECG WHEN COMPARED WITH ECG OF 30-OCT-2019 04:40, SINUS RHYTHM HAS REPLACED ECTOPIC ATRIAL RHYTHM QT HAS LENGTHENED Confirmed by Jenny Mejia ([id number]) on 11/01/2019 9:14:56 AM Referred By: Lonnie VENEGAS Confirmed By:Jenny Mejia
[2019-11-01] MEDS ORDERED: levETIRAcetam 500 MG TABLET (FP) PO ONE ×2 (09:26→20:45)
[2019-11-01] MEDS ORDERED: levETIRAcetam 250 MG TABLET PO ONE ×2 (09:27→20:45)
[2019-11-01] MEDS ORDERED: PT OWN MED DRAWER 7, Y5N ONE (09:27)
[2019-11-01] MEDS: SPIRONOLACTONE 25 MG TABLET PO SCH (09:51)
[2019-11-01] MEDS: CYANOCOBALAMIN (VITAMIN B-12) 100 MCG TABLET PO SCH (09:51)
[2019-11-01] MEDS: DULoxetine HCL 30 MG CAPSULE.DR PO SCH (09:51)
[2019-11-01] MEDS: FUROSEMIDE 40 MG TABLET (FP) PO SCH (09:51)
[2019-11-01] MEDS: FOLIC ACID 1 MG TABLET (FP) PO SCH (09:51)
[2019-11-01] MEDS: THIAMINE HCL 100 MG TABLET (FP) PO SCH (09:52)
[2019-11-01] MEDS: oxyCODONE HCL 5 MG TABLET PO PRN ×2 (10:06→19:25)
--- NOTE | 2019-11-01 10:35 | ECHO ---
Name: MARIBELL VILLEGAS Exam:Adult Echocardiogram Study Date: 11/01/2019 08:55 AM Age: 49 yrs MMode/2D Measurements & Calculations IVSd: 0.98 cm Ao root diam: 3.8 cm LVIDd: 5.6 cm LA dimension: 4.3 cm LVIDs: 3.8 cm LVPWd: 1.3 cm LVPWs: 1.7 cm EDV(Teich): 153.4 ml ESV(Teich): 63.0 ml Doppler Measurements & Calculations MV E max angelina: 49.4 cm/sec Ao V2 max: 118.4 cm/sec MV A max angelina: 66.6 cm/sec Ao max P.6 mmHg MV E/A: 0.74 MV dec time: 0.09 sec LV V1 max P.0 mmHg MR max angelina: 541.4 cm/sec LV V1 max: 112.0 cm/sec MR max P.3 mmHg PA V2 max: 94.3 cm/sec PA max P.6 mmHg Procedure Study Quality: Fair. Left Ventricle The left ventricular size, thickness and function are normal. Ejection Fraction = 55-60%. The transmi tral spectral Doppler flow pattern is suggestive of impaired LV relaxation. Right Ventricle The right ventricle is normal in size and function. Atria The left atrium is mildly dilated. Right atrial size is normal. Mitral Valve The mitral valve leaflets appear normal. There is no evidence of stenosis, fluttering, or prolapse. T here is mild mitral regurgitation. Tricuspid Valve The tricuspid valve is normal. There is trace tricuspid regurgitation. Aortic Valve The aortic valve is normal in structure and function. Pulmonic Valve The pulmonic valve leaflets are thin and pliable; valve motion is normal. There is no pulmonic valvul ar regurgitation. Great Vessels Mild aortic root dilatation. Normal aortic arch, descending and ascending aorta. Pericardium/Pleura There is no pericardial effusion. Interpretation Summary LV: upper normal size,normal systolic function, EF 55-60%,impaired relaxation RV: Agnes LA; Mildly dilated Mild MRKylie Mejia 11/01/2019 10:34 AM
--- NOTE | 2019-11-01 13:17 | PN ---
Teaching Attending Note Name of Resident: Jomar Craven ATTENDING PHYSICIAN STATEMENT I saw and evaluated the patient. I reviewed the resident's note and discussed the case with the resident. I agree with the resident's findings and plan as documented. SUBJECTIVE: Improving Neck pain. No headache/visual disturbance. OBJECTIVE: Afebrile, Hemodynamically Stable. Less tremulous. Last Vital Signs Temp Pulse Resp BP Pulse Ox 98.4 F 80 19 138/93 97 11/01/19 09:50 11/01/19 09:50 11/01/19 09:50 11/01/19 09:50 11/01/19 09:50 Heart - S1, S2, RRR Lungs - clear to auscultation Abdomen - Soft, non-tender. Bowel Sounds normal. Extremities - Edema+. No calf tenderness. MS - C-Spine tenderness, improved ROM about shoulder. Laboratory Results - last 24 hr 10/30/19 11/01/19 11/01/19 14:00 00:01 11:27 Sodium 135 L Potassium 3.2 L Chloride 100 Carbon Dioxide 28 Anion Gap 6 L BUN 6.5 L Creatinine 0.5 L Est GFR (CKD-EPI)AfAm 147.48 Est GFR (CKD-EPI)NonAf 127.25 POC Glucometer 138 Random Glucose 106 Calcium 7.7 L Phosphorus 2.4 L Magnesium 1.7 L Tumor Marker AFP 3.3 Current Medications Generic Name Dose Route Start Last Admin Trade Name Freq PRN Reason Stop Dose Admin Acetaminophen 650 mg 10/30/19 09:13 11/01/19 02:06 Tylenol - PO 650 mg Q4H PRN Administration PAIN LEVEL 4 - 6 Cyanocobalamin 100 mcg 10/30/19 18:30 11/01/19 09:51 Vitamin B12 - PO 100 mcg DAILY LALITHA Administration Duloxetine HCl 30 mg 10/31/19 10:00 11/01/19 09:51 Cymbalta - PO 30 mg DAILY LALITHA Administration Folic Acid 1 mg 10/30/19 18:30 11/01/19 09:51 Folic Acid - PO 1 mg DAILY LALITHA Administration Furosemide 40 mg 10/31/19 10:00 11/01/19 09:51 Lasix - PO 40 mg DAILY LALITHA Administration Gabapentin 600 mg 10/30/19 22:00 11/01/19 05:18 Neurontin - PO 600 mg TID LALITHA Administration Insulin Aspart 1 vial 10/30/19 11:00 11/01/19 11:50 Novolog Vial Sliding Scale - SQ Not Given ACHS LALITHA Protocol Levetiracetam 1,000 mg/ 1,250 mg 10/30/19 22:00 11/01/19 09:51 Levetiracetam 250 mg PO 1,250 mg BID LALITHA Administration Lorazepam 1 mg 11/01/19 05:00 11/01/19 11:39 Ativan - PO 11/01/19 23:01 1 mg 0500,1100,1700,2300 LALITHA Administration Lorazepam 1 mg 10/30/19 19:44 10/30/19 20:23 Ativan - PO 11/01/19 23:59 1 mg Q4H PRN Administration Symptoms of Withdrawal Lorazepam 0.5 mg 11/02/19 05:00 Ativan - PO 11/02/19 23:01 Q6H LALITHA Lorazepam 0.5 mg 11/02/19 00:00 Ativan - PO 11/02/19 23:59 Q4H PRN Symptoms of Withdrawal Lorazepam 0.5 mg 11/03/19 05:00 Ativan - PO 11/03/19 05:01 ONCE ONE Oxycodone HCl 30 mg 10/30/19 18:52 11/01/19 10:06 Roxicodone - PO 30 mg Q8H PRN Administration PAIN LEVEL 7 - 10 Spironolactone 25 mg 10/31/19 10:00 11/01/19 09:51 Aldactone - PO 25 mg DAILY LALITHA Administration Tamsulosin HCl 0.4 mg 10/31/19 08:30 11/01/19 08:04 Flomax - PO 0.4 mg DAILY@0830 LALITHA Administration Thiamine HCl 100 mg 10/30/19 18:30 11/01/19 09:52 Vitamin B1 - PO 100 mg DAILY LALITHA Administration Zolpidem Tartrate 5 mg 10/30/19 22:00 10/30/19 21:56 Ambien - PO 5 mg HS PRN Administration INSOMNIA Home Medications Medication Instructions Recorded Furosemide [Lasix] 40 mg PO DAILY 09/03/17 Tamsulosin HCl 0.4 mg PO DAILY 09/03/17 Zolpidem Tartrate [Ambien] 5 mg PO HS 09/03/17 oxyCODONE HCL [Roxicodone -] 30 mg PO Q6H 09/03/17 metFORMIN HCL [Metformin HCl] 500 mg PO BIDAC #30 tablet 02/20/18 Gabapentin 600 mg PO TID 05/28/18 Spironolactone [Aldactone -] 25 mg PO DAILY 05/28/18 Duloxetine HCl 30 mg PO DAILY 11/18/18 Ergocalciferol (Vitamin D2) 50,000 unit PO WEEKLY 11/18/18 [Vitamin D2] Folic Acid - 1 mg PO DAILY #30 tablet 11/19/18 Thiamine HCl [Vitamin B1 -] 100 mg PO DAILY #30 tablet 11/19/18 Cyclobenzaprine HCl [Flexeril -] 10 mg PO TID 10/30/19 levETIRAcetam [Keppra -] 1,250 mg PO TID 10/30/19 Pantoprazole Sodium [Protonix] 40 mg PO ASDIR 11/01/19 ASSESSMENT AND PLAN: 49 year old male with past medical history of Alcohol abuse, Seizure Disorder, Liver Cirrhosis, HTN, HLD, DM 2, BPH, Obesity s/p gastric sleeve, Depression, Hx of C/T spine herniated discs, L Shoulder dislocation, presented to the ED with complaints of neck pain radiating down to shoulder, L chest, L arm with altered sensation LUE. 1. 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 Neurosurgery consulted - no surgical intervention recommended. If persistent symptoms in 3-4 weeks, Neurosurgery recommends EMG and out-patient follow up. Continue Neurontin. On chronic opiates. 2. History of Alcohol Excess and Liver Cirrhosis with Acute Alcohol withdrawal Alc level 303 on presentation Still tremulous. Continue Ativan as per [facility] protocol Thiamine, MVI, Folic Acid. Declines transfer to [facility] to complete Detox protocol. 3. Hypokalemia/Hypomagnesemia/Hypophosphatemia - repleted. 4. Mild LE edema ?sec to Cirrhosis/Hypoalbuminemia On Lasix daily. Echo - normal EF, impaired relaxation. 5. DM 2 - Hold oral anti-hyperglycemics. Novolog as per sliding scale. 6. BPH - on Tamsulosin 7. HTN - on Spironolactone 8. Depression - Continue Duloxetine. 9. Macrocytosis/Thrombocytopenia - sec to Cirrhosis/Alcohol excess. B12/Folate levels normal. 10. Seizure Disorder - resume home dose Keppra. DVT Px - SCDs. Heparin held due to Thrombocytopenia.
[2019-11-01 14:51] LABS: BASO % 0.5 % (0-2.0); EOS % 2.8 % (0-4.5); HEMATOCRIT 38.1 % (35.4-49); HEMOGLOBIN 12.8 GM/dL (11.7-16.9); LYMPH % 20.1 % (8-40); MCH 34.7 pg (25.7-33.7); MCHC 33.6 g/dl (32.0-35.9); MEAN CELL VOLUME 103.4 fl (80-96); MEAN PLT VOLUME 8.8 fl (7.5-11.1); MONO % 13.1 % (3.8-10.2); NEUT % 63.5 % (42.8-82.8); PLATELET COUNT 57 K/MM3 (134-434); RBC 3.69 M/mm3 (4.00-5.60); RDW 15.2 % (11.9-15.9); WHITE BLOOD COUNT 2.9 K/mm3 (4.0-10.0)
[2019-11-01 15:22] LABS: ALBUMIN 2.4 g/dl (3.4-5.0); BILIRUBIN,TOTAL 4.1 mg/dL (0.2-1); BLOOD UREA NITROGEN 5.5 mg/dL (7-18); CALCIUM 8.1 mg/dL (8.5-10.1); CREATININE 0.6 mg/dL (0.55-1.3); MAGNESIUM 1.8 mg/dL (1.8-2.4); PHOSPHOROUS 3.2 mg/dL (2.5-4.9); POTASSIUM 3.5 mmol/L (3.5-5.1); TOT PROT 7.2 g/dl (6.4-8.2)
--- NOTE | 2019-11-01 15:22 | PN ---
Progress Note (short form) - Note Progress Note: NEUROSURGERY L arm numbness and pain better. Denies Lhermitte's sign. No B/B dysfunction. PE: AF, VSS General- unremarkable; Neck- mild tenderness L trapezius and supraspinatus; decreased L lat bending CN- intact; Motor- 5/5 except L shoulder abduction 4-; sensatio- intact LT; DTR- 1-2+ and symmetric Decreased platelet count; Elevated LFT and INR; platelet 57k MRI C spine- mild spondylosis; L C3-4 and C4-5 uncovertebral joint hypertrophy, mild L C3-4 and C4-5 foramenal stenosis EtOH abuse/dependence with hepatic and pancreatic dysfunction C3-4 DDD with endplate sclerosis and mild kyphosis/L C3-4 adn C4-5 foramenal stenosis Cont neurontin Start PT If persistent symptoms beyond 3-4 weeks of medical tx, obtain EMG prior to further recommendations Surgery should not be undertaken lightly given his EtOH and DM; further thrombocytopenia would be problematic Decreased EtOH intake and professional assistance for EtOH advised
--- NOTE | 2019-11-01 16:20 | CONS ---
DATE OF CONSULTATION: 10/31/2019 REQUESTING PHYSICIAN: Prakash Reed MD CONSULTING: Yogesh Capellan MD, neurosurgery CHIEF COMPLAINT: Left-sided neck pain with cervical radiculopathy. HISTORY OF PRESENT ILLNESS: This patient is a 49-year-old right-handed male with history of EtOH abuse, chronic pancreatitis, hypertension, hypercholesterolemia, type 2 diabetes, BPH, obesity status post gastric sleeve placement, lumbar disk disease with left-sided sciatica, and dislocated left shoulder who complains of left- sided arm pain and weakness and chest discomfort of about 2 to 3 days duration. This pain has occurred periodically over the past couple of years. This is associated with left upper numbness and paresthesia. He has had chronic left shoulder weakness due to a dislocated left shoulder previously. He also denies Lhermitte sign and has no bowel or bladder dysfunction. He experienced intermittent sciatica of the left lower extremity down to the posterior thigh but short of the knee. PAST MEDICAL HISTORY: Significant for hypertension, EtOH abuse, pancreatitis, hypercholesterolemia, type 2 diabetes, obesity status post gastric sleeve procedure, lumbar disk disease with left sciatica, dislocated left shoulder. CURRENT MEDICATIONS: Include Flomax, Tylenol, subcu heparin, Neurontin, Keppra, Cymbalta, Ambien, Ativan, Lasix, insulin coverage, Aldactone, oxycodone, vitamin B12. There is no known drug allergy. FAMILY HISTORY: Noncontributory. SOCIAL HISTORY: He does not work. 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 He drinks heavily, especially beers. He does not smoke. FAMILY HISTORY: Significant for cardiac disease in his family. REVIEW OF SYSTEMS: Otherwise negative for major constitutional, head, neck, cardiovascular, pulmonary, gastrointestinal, genitourinary, endocrinological, neurological, or psychological problems except for the above. PHYSICAL EXAMINATION: Vital Signs: Temperature is 98.7, blood pressure 133/81 with a pulse rate 69, O2 saturation is 97% on room air. HEENT: Normocephalic, atraumatic. Anicteric. Neck: Supple. He has left-sided cervical paraspinal muscle tenderness as well as left trapezius and supraspinatus tenderness. Range of motion is generally physiological except for left lateral bending, which is decreased slightly. Coronary: Examination demonstrated regular rhythm. Lungs: Clear bilaterally. Abdomen: Benign. Extremities: Show no signs of DVT. Neurologic: He is awake and alert, oriented x4. Cranial nerves examination is intact II through XII. Motor examination shows weakness of the left deltoid and supraspinatus at approximately 4/5 to 4-/5. Sensory examination is intact to light touch. Deep tendon reflexes are 1 to 2+ throughout. There is no pathological long tract sign. His gait is stable. Cerebellar examination demonstrates a slight tremor, but intact [id number] examination. LABORATORY EXAMINATION: Shows white blood cell count of 3 and hemoglobin 11.8, platelet count is only 61,000. INR is 1.56. Serum sodium is 139, potassium 3.2. BUN 4.6 and creatinine 0.4. Total bilirubin 3.3, AST is 112, and alkaline phosphatase is 128. Urinalysis shows 1+ bilirubin. Urine toxicology demonstrated positive opiates, benzodiazepines, as well as marijuana. Alcohol was 303. IMAGING: MRI of the cervical spine demonstrated degenerative at C3-4. There is mild spondylosis throughout. There is slight kyphosis over C3-4. There is uncovertebral joint hypertrophy at the left side more than the right at C3-4 and C4-5 with mild foraminal stenosis. There is no fracture or dislocation. IMPRESSION: 1. Left C3-4 degenerative disk disease and left C3-4 and C4-5 foraminal stenosis with left C4 and C5 radiculopathy. 2. EtOH abuse. 3. History of obesity status post gastric sleeve placement. 4. History of pancreatitis and hepatic dysfunction 6. Lumbar disk disease. RECOMMENDATIONS: Patient presents with a couple years history of intermittent left-sided neck pain and left upper extremity pain and now involves the left chest. He felt anxious earlier today. When he experienced the pain, he stated he had not felt this degree of anxiety and palpation previously. A medical evaluation and monitoring is warranted because of his symptoms. Even though these symptoms are likely related to the cervical spine, a medical/cardiac cause cannot be completely ruled out given his history of diabetes, as well as obesity. The patient is already on multiple medications for his symptoms, which help with symptoms, including gabapentin. A course of physical therapy could be considered. If patient continues to complain of the upper extremity symptoms despite a negative cardiac evaluation, the patient could be considered for outpatient EMG and nerve conduction studies of the left upper extremity with a neurologist. Given his EtOH abuse, more invasive surgical intervention is not recommended, especially in light of his history of chronic pancreatitis as well as hepatic dysfunction, as indicated on his blood test. The patient is asked to seek help for his drinking. He was also advised to drink less as a starter. All questions were answered at bedside, and MRI findings were communicated with the patient. YOGESH CAPELLAN M.D. [id number] MTDD
--- NOTE | 2019-11-01 17:54 | PN ---
Physical Exam: SUBJECTIVE: Patient seen and examined at bedside. The patient reports feeling chilly and slightly nauseous having vomited nonbloody nonbilious vomit after eating breakfast. The patient reports sometimes having anxiety with tachycardia, and has been experiencing these symptoms from time to time each week. The patient denies chest pain, shortness of breath, diarrhea, constipation, and tremors. The patient has no tremors when he stretches out his arms in front of his body. The patient reports that he still has his right arm radiculopathy with an 8/10 pain level severity. OBJECTIVE: Vital Signs Period Temp Pulse Resp BP Sys/Sarmiento Pulse Ox Last 24 Hr 98 F-99.4 F 79-91 18-20 119-189/86-93 95-98 GENERAL: The patient is awake, alert, and fully oriented, in no acute distress. HEAD: Normal with no signs of trauma. EYES: Extraocular movements intact. No ptosis. ENT: Ears normal, nares patent, oropharynx clear without exudates, moist mucous membranes. NECK: Trachea midline, full range of motion, supple. LUNGS: Breath sounds equal, clear to auscultation bilaterally, no wheezes, no crackles, no accessory muscle use. HEART: Regular rate and rhythm, S1, S2 without murmur, rub or gallop. ABDOMEN: Soft, nontender, nondistended, normoactive bowel sounds, no guarding, no rebound, hepatomegaly but no splenomegaly, no masses. EXTREMITIES: 2+ pulses, warm, well-perfused, bilateral leg edema. NEUROLOGICAL: Normal speech, gait not observed. PSYCH: Normal mood, normal affect. SKIN: Warm, dry, normal turgor, no rashes or lesions noted Laboratory Results - last 24 hr 10/30/19 11/01/19 11/01/19 14:00 00:01 11:27 WBC RBC Hgb Hct MCV MCH MCHC RDW Plt Count MPV Absolute Neuts (auto) Neutrophils % Lymphocytes % Monocytes % Eosinophils % Basophils % Nucleated RBC % Sodium 135 L Potassium 3.2 L Chloride 100 Carbon Dioxide 28 Anion Gap 6 L BUN 6.5 L Creatinine 0.5 L Est GFR (CKD-EPI)AfAm 147.48 Est GFR (CKD-EPI)NonAf 127.25 POC Glucometer 138 Random Glucose 106 Calcium 7.7 L Phosphorus 2.4 L Magnesium 1.7 L Total Bilirubin AST ALT Alkaline Phosphatase Total Protein Albumin Tumor Marker AFP 3.3 11/01/19 11/01/19 11/01/19 14:25 14:25 14:25 WBC 2.9 L RBC 3.69 L Hgb 12.8 Hct 38.1 MCV 103.4 H MCH 34.7 H MCHC 33.6 RDW 15.2 Plt Count 57 L MPV 8.8 Absolute Neuts (auto) 1.8 Neutrophils % 63.5 D Lymphocytes % 20.1 D Monocytes % 13.1 H Eosinophils % 2.8 Basophils % 0.5 Nucleated RBC % 0 Sodium 134 L Potassium 3.5 3.5 Chloride 101 Carbon Dioxide 27 Anion Gap 7 L BUN 5.5 L Creatinine 0.6 Est GFR (CKD-EPI)AfAm 136.83 Est GFR (CKD-EPI)NonAf 118.06 POC Glucometer Random Glucose 159 H Calcium 8.1 L Phosphorus 3.2 Magnesium 1.8 Total Bilirubin 4.1 H AST 109 H ALT 46 Alkaline Phosphatase 153 H Total Protein 7.2 Albumin 2.4 L Tumor Marker AFP 11/01/19 16:45 WBC RBC Hgb Hct MCV MCH MCHC RDW Plt Count MPV Absolute Neuts (auto) Neutrophils % Lymphocytes % Monocytes % Eosinophils % Basophils % Nucleated RBC % Sodium Potassium Chloride Carbon Dioxide Anion Gap BUN Creatinine Est GFR (CKD-EPI)AfAm Est GFR (CKD-EPI)NonAf POC Glucometer 154 Random Glucose Calcium Phosphorus Magnesium Total Bilirubin AST ALT Alkaline Phosphatase Total Protein Albumin Tumor Marker AFP Active Medications Generic Name Dose Route Start Last Admin Trade Name Freq PRN Reason Stop Dose Admin Acetaminophen 650 mg 10/30/19 09:13 11/01/19 02:06 Tylenol - PO 650 mg Q4H PRN Administration PAIN LEVEL 4 - 6 Cyanocobalamin 100 mcg 10/30/19 18:30 11/01/19 09:51 Vitamin B12 - PO 100 mcg DAILY LALITHA Administration Duloxetine HCl 30 mg 10/31/19 10:00 11/01/19 09:51 Cymbalta - PO 30 mg DAILY LALITHA Administration Folic Acid 1 mg 10/30/19 18:30 11/01/19 09:51 Folic Acid - PO 1 mg DAILY LALITHA Administration Furosemide 40 mg 10/31/19 10:00 11/01/19 09:51 Lasix - PO 40 mg DAILY LALITHA Administration Gabapentin 600 mg 10/30/19 22:00 11/01/19 13:31 Neurontin - PO 600 mg TID LALITHA Administration Insulin Aspart 1 vial 10/30/19 11:00 11/01/19 16:46 Novolog Vial Sliding Scale - SQ 2 unit ACHS LALITHA Administration Protocol Levetiracetam 1,000 mg/ 1,250 mg 11/01/19 22:00 Levetiracetam 250 mg PO BID LALITHA Lorazepam 1 mg 11/01/19 05:00 11/01/19 11:39 Ativan - PO 11/01/19 23:01 1 mg 0500,1100,1700,2300 LALITHA Administration Lorazepam 1 mg 10/30/19 19:44 10/30/19 20:23 Ativan - PO 11/01/19 23:59 1 mg Q4H PRN Administration Symptoms of Withdrawal Lorazepam 0.5 mg 11/02/19 05:00 Ativan - PO 11/02/19 23:01 Q6H LALITHA Lorazepam 0.5 mg 11/02/19 00:00 Ativan - PO 11/02/19 23:59 Q4H PRN Symptoms of Withdrawal Lorazepam 0.5 mg 11/03/19 05:00 Ativan - PO 11/03/19 05:01 ONCE ONE Oxycodone HCl 30 mg 10/30/19 18:52 11/01/19 10:06 Roxicodone - PO 30 mg Q8H PRN Administration PAIN LEVEL 7 - 10 Spironolactone 25 mg 10/31/19 10:00 11/01/19 09:51 Aldactone - PO 25 mg DAILY LALITHA Administration Tamsulosin HCl 0.4 mg 10/31/19 08:30 11/01/19 08:04 Flomax - PO 0.4 mg DAILY@0830 LALITHA Administration Thiamine HCl 100 mg 10/30/19 18:30 11/01/19 09:52 Vitamin B1 - PO 100 mg DAILY LALITHA Administration Zolpidem Tartrate 5 mg 10/30/19 22:00 10/30/19 21:56 Ambien - PO 5 mg HS PRN Administration INSOMNIA ASSESSMENT/PLAN: 49 year old male with past medical history of Alcohol abuse, HTN, HLD, DM, BPH, chronic pancreatitis, s/p gastric sleeve, Hx of herniated discs in his back, who presented to the ED with left arm pain and numbness with chest discomfort that started last . 1. Left radiculopathy likely secondary to pinched nerve - pain reproducable with abduction of shoulder and palpation of cervical spine - MRI shows some minimal disc bulges - Shoulder x-ray shows no acute process - follow up outpatient with Neurosurgery for EMG if symptoms do not self- resolve. 2. Alcohol withdrawal - No tremors on physical exam - The patient is taking Thiamin, Folic Acid, Vit B12 - The patient is taking the Ativan protocol. - The patient refuses to go to [facility] 3. r/o ACS - ECG shows NSR - troponins neg - ECHO EF 55% with no significant problems, besides for some mild MR. Macrocytosis secondary to chronic alcohol use - Vitamin b12 normal at 978 - Folate high at 21 Elevated lipase - The patient has chronic pancreatitis history BPH - The patient is taking tamsulosin 4. DM - ISS 5. HTN - The patient is taking spirinolactone DVT PPx - Heparin Sq Dispo - Discharge possibly tomorrow. The patient refuses to go to [facility]. Visit type - Emergency Visit Emergency Visit: Yes ED Registration Date: 10/30/19 Care time: The patient presented to the Emergency Department on the above date and was hospitalized for further evaluation of their emergent condition. - New Patient This patient is new to me today: No - Critical Care Critical Care patient: No - Discharge Referral Referred to [facility] Med P.C.: No ATTENDING PHYSICIAN STATEMENT I saw and evaluated the patient. I reviewed the resident's note and discussed the case with the resident. I agree with the resident's findings and plan as documented. SUBJECTIVE: OBJECTIVE: ASSESSMENT AND PLAN:
[2019-11-01] MEDS: ZOLPIDEM TARTRATE 5 MG TABLET PO PRN (23:00)
[2019-11-02] MEDS ORDERED: LORazepam 0.5 MG TABLET PO PRN
[2019-11-02] MEDS: LORazepam 0.5 MG TABLET PO SCH ×4 (05:48→22:41)
[2019-11-02] MEDS: INSULIN SLIDING SCALE (NOVOLOG) 1 VIAL SQ SCH ×4 (06:17→22:03)
[2019-11-02] MEDS: GABAPENTIN 300 MG CAPSULE PO SCH ×3 (06:17→21:39)
[2019-11-02 06:42] LABS: HEMATOCRIT 38.3 % (35.4-49); HEMOGLOBIN 12.8 GM/dL (11.7-16.9); MCH 34.1 pg (25.7-33.7); MCHC 33.5 g/dl (32.0-35.9); MEAN PLT VOLUME 9.1 fl (7.5-11.1); PLATELET COUNT 63 K/MM3 (134-434); RBC 3.76 M/mm3 (4.00-5.60); WHITE BLOOD COUNT 3.4 K/mm3 (4.0-10.0)
[2019-11-02 07:29] LABS: BLOOD UREA NITROGEN 7.7 mg/dL (7-18); CREATININE 0.5 mg/dL (0.55-1.3); MAGNESIUM 1.6 mg/dL (1.8-2.4); PHOSPHOROUS 3.6 mg/dL (2.5-4.9); POTASSIUM 3.6 mmol/L (3.5-5.1)
[2019-11-02] MEDS: TAMSULOSIN HCL 0.4 MG CAP PO SCH (08:17)
--- NOTE | 2019-11-02 08:30 | PN ---
Progress Note (short form) - Note Progress Note: NEUROSURGERY L arm numbness and pain. Denies Lhermitte's sign. No B/B dysfunction. Nausea reported yesterday PE: Tmax 98.8. AF, VSS General- unremarkable; Neck- mild tenderness L trapezius and supraspinatus; decreased L lat bending CN- intact; Motor- 5/5 except L shoulder abduction 4-; sensatio- intact LT; DTR- 1-2+ and symmetric Decreased platelet count; Elevated LFT and INR; platelet 57k MRI C spine- mild spondylosis; L C3-4 and C4-5 uncovertebral joint hypertrophy, mild L C3-4 and C4-5 foramenal stenosis EtOH abuse/dependence with hepatic and pancreatic dysfunction Also anemia and thrombocytopenia C3-4 DDD with endplate sclerosis and mild kyphosis/L C3-4 and C4-5 foramenal stenosis Cont neurontin PT and meds If persistent symptoms beyond 3-4 weeks of medical tx, obtain EMG prior to further recommendations Surgery should not be undertaken lightly given his EtOH and DM; further hepatic dysfunction and thrombocytopenia would be problematic for any procedure Decreased EtOH intake and professional program for EtOH cessation advised
[2019-11-02] MEDS ORDERED: levETIRAcetam 500 MG TABLET (FP) PO ONE ×2 (09:49→21:35)
[2019-11-02] MEDS ORDERED: PT OWN MED DRAWER 7, Y5N ONE (09:49)
[2019-11-02] MEDS ORDERED: levETIRAcetam 250 MG TABLET PO ONE ×2 (09:49→21:35)
[2019-11-02] MEDS: FOLIC ACID 1 MG TABLET (FP) PO SCH (09:57)
[2019-11-02] MEDS: CYANOCOBALAMIN (VITAMIN B-12) 100 MCG TABLET PO SCH (09:57)
[2019-11-02] MEDS: DULoxetine HCL 30 MG CAPSULE.DR PO SCH (09:57)
[2019-11-02] MEDS: THIAMINE HCL 100 MG TABLET (FP) PO SCH (09:57)
[2019-11-02] MEDS: FUROSEMIDE 40 MG TABLET (FP) PO SCH (09:57)
[2019-11-02] MEDS: SPIRONOLACTONE 25 MG TABLET PO SCH (09:57)
[2019-11-02] MEDS: ACETAMINOPHEN 325 MG TABLET (FP) PO PRN (13:18)
[2019-11-02] MEDS: oxyCODONE HCL 5 MG TABLET PO PRN ×2 (13:18→20:10)
[2019-11-02] MEDS ORDERED: MAGNESIUM 1GM/D5W 100ML - 100 ML IVPB IVPB ONE (13:35)
--- NOTE | 2019-11-02 14:18 | PN ---
Teaching Attending Note Name of Resident: Jomar Craven ATTENDING PHYSICIAN STATEMENT I saw and evaluated the patient. I reviewed the resident's note and discussed the case with the resident. I agree with the resident's findings and plan as documented. SUBJECTIVE: Seen and examined at bedside. Patient denies any left shoulder pain while at re st. Denies abdominal pain, nausea, vomiting, diarrhea, confusion. Alert and oriented x3. Patient's bilirubin and INR/PT continue to rise. Meld score 19 and discriminant function 34. AST and ALT are downtrending. Despite worsening of labs patient clinically appears well. Had extensive conversation about the importance of alcohol abstinence. Will consult gastroenterology for worsening cirrhosis and concern for alcoholic hepatitis with DF 34. OBJECTIVE: Last Vital Signs Temp Pulse Resp BP Pulse Ox 98.3 F 87 16 119/82 98 11/02/19 10:00 11/02/19 10:00 11/02/19 10:00 11/02/19 10:00 11/02/19 10:00 PE: Per resident note Labs/Imaging: reviewed ASSESSMENT AND PLAN: 49 year old male with past medical history of Alcohol abuse, Seizure Disorder, Liver Cirrhosis, HTN, HLD, DM 2, BPH, Obesity s/p gastric sleeve, Depression, Hx of C/T spine herniated discs, L Shoulder dislocation, presented to the ED with complaints of neck pain radiating down to shoulder, L chest, L arm with altered sensation LUE. 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 Neurosurgery consulted - no surgical intervention recommended. If persistent symptoms in 3-4 weeks, Neurosurgery recommends EMG and out-patient follow up. Continue Neurontin. On chronic opiates. #History of Alcohol Excess and Liver Cirrhosis with Acute Alcohol withdrawal and possible alcoholic hepatitis No symptoms of withdrawal at this time, however, concern for diagnosis of alcoholic hepatitis with DF today of 34, though does not appear clinically ill and has no RUQ tenderness. Meld score 19. Patient does not follow with outpatient production corrugator -importance of alcohol abstenance discussed in detail with pt -consult GI for possible steroid tx of alcoholic hepatitis -Needs outpt hepatology followup on DC Continue Ativan as per CIWA protocol Thiamine, MVI, Folic Acid. Declines transfer to [facility] to complete Detox protocol. # Hypokalemia/Hypomagnesemia/Hypophosphatemia - repleted. # Mild LE edema ?sec to Cirrhosis/Hypoalbuminemia On Lasix/spironolactone daily. Echo - normal EF, impaired relaxation. # DM 2 - Hold oral anti-hyperglycemics. Novolog as per sliding scale. # BPH - on Tamsulosin # HTN - on Spironolactone # Depression - Continue Duloxetine. # Macrocytosis/Thrombocytopenia - sec to Cirrhosis/Alcohol excess. B12/Folate levels normal. # Seizure Disorder - resume home dose Keppra. DVT Px - SCDs. Heparin held due to Thrombocytopenia.
--- NOTE | 2019-11-02 15:20 | CON.GI ---
Consult Consult Specialty:: GI Referred by:: Hospitalist Service Reason for Consultation:: Abnormal liver chemistries - History of Present Illness Chief Complaint: palpiatations and patient though he was having a seizure History of Present Illness: 49M admissted for evaluation of palpitations and he through he was having a seizure. I was called to evaluate abnormal liver chemistries. In review of the [facility] system, Mr. Blount has had multiple detox admissions. His liver chemistries from at least 2012 have been elevated in a similar pattern. He does not recall ever having been seen by a diffusion furnace operator / software release manager. He does recall that he has been advised by his PMD Dr. Rush that he needs to stop drinking. He continues to drink, 1 6 pack every other day + at times. His last drink was the day he came to the hospital. His father is an alcoholic. Prior imaging studies included CT scan in 2017 that raised a question of inflammatory changes along the right colon / cecum, changes c/w portal HTN / cirrhosis as well as ? previous inflammatory changes about the left kidney. Abdominal US in the past revealed cholelithiasis and hepatosplenomegaly. He is on ativan protocol. Although admitted for the last three days with abnormal liver chemistries, there is no abdominal imaging this admission. 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 SERVICE WAITER/WAITRESS: Yes: Seizure (questionable vs pseudoseizures ) Cardio/Vascular: Yes: HTN Pulmonary: Yes: Sleep Apnea Hepatobiliary: Yes: Cirrhosis Psych: Yes: Addictions (alcohol) Musculoskeletal: Yes: Chronic low back pain - Past Surgical History Past Surgical History: Yes: Arthrosocopy (left shoulder, right knee), Bariatric Surgery (gastric band), Hernia Repair (ventral hernia repair) - Alcohol/Substance Use Hx Alcohol Use: Yes (daily chr use) Number of Drinks Daily: 5 History of Substance Use: reports: None Date of Last Use: 03/24/17 - Smoking History Smoking history: Never smoked Have you smoked in the past 12 months: No Aproximately how many cigarettes per day: 5 - Social History Usual Living Arrangement: With Parent (mother) ADL: Independent 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 Place of : [facility] History of Recent Travel: No Home Medications - Allergies Allergies/Adverse Reactions: Allergies Allergy/AdvReac Type Severity Reaction Status Date / Time No Known Allergies Allergy Verified 10/30/19 09:49 - Home Medications Home Medications: Ambulatory Orders Furosemide [Lasix] 40 mg PO DAILY 09/03/17 Tamsulosin HCl 0.4 mg PO DAILY 09/03/17 Zolpidem Tartrate [Ambien] 5 mg PO HS 09/03/17 oxyCODONE HCL [Roxicodone -] 30 mg PO Q6H 09/03/17 metFORMIN HCL [Metformin HCl] 500 mg PO BIDAC #30 tablet 02/20/18 Gabapentin 600 mg PO TID 05/28/18 Spironolactone [Aldactone -] 25 mg PO DAILY 05/28/18 Duloxetine HCl 30 mg PO DAILY 11/18/18 Ergocalciferol (Vitamin D2) [Vitamin D2] 50,000 unit PO WEEKLY 11/18/18 Folic Acid - 1 mg PO DAILY #30 tablet 11/19/18 Thiamine HCl [Vitamin B1 -] 100 mg PO DAILY #30 tablet 11/19/18 Cyclobenzaprine HCl [Flexeril -] 10 mg PO TID 10/30/19 levETIRAcetam [Keppra -] 1,250 mg PO TID 10/30/19 Pantoprazole Sodium [Protonix] 40 mg PO ASDIR 11/01/19 Family Medical History Other Family History: Mother: Alive: healthy. Father: Alive: alcoholism, ? onset of dementia. 1 brother, 1 sister: healthy. 1 son, 1 daughter: healthy. No family history of colorectal cancer or other GI malignancy Review of Systems - Review of Systems Constitutional: denies: Chills Cardiovascular: reports: Chest Pain, Palpitations, Shortness of Breath Respiratory: denies: Cough Gastrointestinal: denies: Abdominal Pain, Bloating, Constipation, Diarrhea, Melena, Rectal Bleeding, Vomiting Neurological: reports: Seizure Physical Exam-GI Vital Signs: Vital Signs Temperature 98.1 F 11/02/19 14:00 Pulse Rate 82 11/02/19 14:00 Respiratory Rate 20 11/02/19 14:00 Blood Pressure 127/73 11/02/19 14:00 O2 Sat by Pulse Oximetry (%) 98 11/02/19 10:00 Constitutional: Yes: Calm Eyes: Yes: Sclera Icterus (Mild) Cardiovascular: Yes: Regular Rate and Rhythm. No: Murmur Respiratory: Yes: CTA Bilaterally Gastrointestinal Inspection: Yes: Other (Palpable lab band port in mid upper abdomen). No: Distention ...Auscultate: Yes: Normoactive Bowel Sounds ...Palpate: Yes: Soft. No: Hepatomegaly, Splenomegaly, Tenderness ...Percussion: No: Tympanitic Edema: No (No LE edema) Neurological: Yes: Alert, Oriented. No: Asterixis Labs: CBC, BMP 11/02/19 05:30 11/02/19 05:30 INR, PTT INR 1.56 (0.83-1.09) H 10/31/19 07:00 Hepatic Panel Total Bilirubin 4.1 mg/dL (0.2-1) H 11/01/19 14:25 Direct Bilirubin 1.7 mg/dL (0.0-0.2) H 10/30/19 10:00 AST 109 U/L (15-37) H 11/01/19 14:25 ALT 46 U/L (13-61) 11/01/19 14:25 Alkaline Phosphatase 153 U/L (45-117) H 11/01/19 14:25 Albumin 2.4 g/dl (3.4-5.0) L 11/01/19 14:25 Problem List - Problems (1) Abnormal liver function tests Assessment/Plan: Liver chemistry abnormalities appear chronic in nature if you look back through the [facility] system He is devoid of RUQ pain I suspect that his current LFT abnormality reflects acute on chronic alcohol induced liver disease and may have been worsened in the setting of ? recent seizure / continued alcohol use. Possible complonent of alcoholc hepatitis. I explained to Mr. Blount that he needs to completely abstain from alcohol consumption, otherwise he will likely from complications of liver disease. he is aware he likely has cirrhosis and discussed potential sequelae such as liver cancer, bleeding, encephalopathy, ascites, . Hold off on prednisolone therapy for now MRI/MRCP to evaluate liver parenchyma and biliary tract He will need Q6 month AFP/hepatic US to screen for hepatoma and will need eventual EGD to screen for varices. His PMD is Romulo Rush. Would attempt to contact his to obtain most recent blood work for comparison Check screening hepatitis serologies. those would be hepatitis A total antibody, hepatitis B surface antigen, hepatitis B surface antibody, hepatitis B core antibody, hepatitis C antibody (can order hepatitis A/B panel and HCV diagnostic) Monitor liver function tests, including PT/INR daily. Adjust medication regimen as needed for liver dysfunction. Stopping tylenol. Avoid hepatotoxic agents Withdrawal precautions Detox eval When acute issues are resolved, He should follow-up with his PMD to discuss options for referral to a liver center. As an example, Dr. Rush's group is affiliated with [facility]. Other options include the [facility] liver transplant / hepatology department with Dr. Marla Gomez or Neil Logan. [phone] or the [facility] GI/Liver clinic [phone] Code(s): R94.5 - ABNORMAL RESULTS OF LIVER FUNCTION STUDIES
--- NOTE | 2019-11-02 15:31 | PN ---
Physical Exam: SUBJECTIVE: Patient seen and examined at bedside. The patient reports feeling a little tired. The patient reports also some mild tingling in his left arm. Dr. Mujica explained to the patient the dangerous situation the patient is in if he doesn't stop consuming alcohol, as well as the possibility of . The patient responded that he is interested in alcohol cessation, but does not want to go to [facility]. The patient agreed to see a arc welding machine operator for information and medication to help with his liver cirrhosis. OBJECTIVE: Vital Signs Period Temp Pulse Resp BP Sys/Sarmiento Pulse Ox Last 24 Hr 97.8 F-98.8 F 70-87 16-20 111-150/73-95 98-99 GENERAL: The patient is awake, alert, and fully oriented, in no acute distress. HEAD: Normal with no signs of trauma. EYES: Extraocular movements intact. No ptosis. ENT: Ears normal, nares patent, oropharynx clear without exudates, moist mucous membranes. NECK: Trachea midline, full range of motion, supple. LUNGS: Breath sounds equal, clear to auscultation bilaterally, no wheezes, no crackles, no accessory muscle use. HEART: Regular rate and rhythm, S1, S2 without murmur, rub or gallop. ABDOMEN: Soft, nontender, normoactive bowel sounds, no guarding, no rebound, hepatomegaly but no splenomegaly, no masses. EXTREMITIES: 2+ pulses, warm, well-perfused, no edema. NEUROLOGICAL: Normal speech, gait not observed. PSYCH: Normal mood, normal affect. SKIN: Visibly jaundiced skin. Laboratory Results - last 24 hr 11/01/19 11/02/19 11/02/19 16:45 05:30 05:30 WBC 3.4 L RBC 3.76 L Hgb 12.8 Hct 38.3 MCV 102.0 H MCH 34.1 H MCHC 33.5 RDW 15.0 Plt Count 63 L MPV 9.1 Sodium 134 L Potassium 3.6 Chloride 100 Carbon Dioxide 26 Anion Gap 8 BUN 7.7 Creatinine 0.5 L Est GFR (CKD-EPI)AfAm 147.48 Est GFR (CKD-EPI)NonAf 127.25 POC Glucometer 154 Random Glucose 79 Calcium 8.0 L Phosphorus 3.6 Magnesium 1.6 L 11/02/19 06:00 WBC RBC Hgb Hct MCV MCH MCHC RDW Plt Count MPV Sodium Potassium Chloride Carbon Dioxide Anion Gap BUN Creatinine Est GFR (CKD-EPI)AfAm Est GFR (CKD-EPI)NonAf POC Glucometer 86 Random Glucose Calcium Phosphorus Magnesium Active Medications Generic Name Dose Route Start Last Admin Trade Name Freq PRN Reason Stop Dose Admin Acetaminophen 650 mg 10/30/19 09:13 11/02/19 13:18 Tylenol - PO 650 mg Q4H PRN Administration PAIN LEVEL 4 - 6 Cyanocobalamin 100 mcg 10/30/19 18:30 11/02/19 09:57 Vitamin B12 - PO 100 mcg DAILY LALITHA Administration Duloxetine HCl 30 mg 10/31/19 10:00 11/02/19 09:57 Cymbalta - PO 30 mg DAILY LALITHA Administration Folic Acid 1 mg 10/30/19 18:30 11/02/19 09:57 Folic Acid - PO 1 mg DAILY LALITHA Administration Furosemide 40 mg 10/31/19 10:00 11/02/19 09:57 Lasix - PO 40 mg DAILY LALITHA Administration Gabapentin 600 mg 10/30/19 22:00 11/02/19 13:00 Neurontin - PO 600 mg TID LALITHA Administration Insulin Aspart 1 vial 10/30/19 11:00 11/02/19 11:45 Novolog Vial Sliding Scale - SQ Not Given ACHS LALITHA Protocol Levetiracetam 1,000 mg/ 1,250 mg 11/01/19 22:00 11/02/19 09:57 Levetiracetam 250 mg PO 1,250 mg BID LALITHA Administration Lorazepam 0.5 mg 11/02/19 05:00 11/02/19 11:41 Ativan - PO 11/02/19 23:01 0.5 mg Q6H LALITHA Administration Lorazepam 0.5 mg 11/02/19 00:00 Ativan - PO 11/02/19 23:59 Q4H PRN Symptoms of Withdrawal Lorazepam 0.5 mg 11/03/19 05:00 Ativan - PO 11/03/19 05:01 ONCE ONE Oxycodone HCl 30 mg 10/30/19 18:52 11/02/19 13:18 Roxicodone - PO 30 mg Q8H PRN Administration PAIN LEVEL 7 - 10 Spironolactone 25 mg 10/31/19 10:00 11/02/19 09:57 Aldactone - PO 25 mg DAILY LALITHA Administration Tamsulosin HCl 0.4 mg 10/31/19 08:30 11/02/19 08:17 Flomax - PO 0.4 mg DAILY@0830 LALITHA Administration Thiamine HCl 100 mg 10/30/19 18:30 11/02/19 09:57 Vitamin B1 - PO 100 mg DAILY LALITHA Administration Zolpidem Tartrate 5 mg 10/30/19 22:00 11/01/19 23:00 Ambien - PO 5 mg HS PRN Administration INSOMNIA ASSESSMENT/PLAN: 49 year old male with past medical history of Alcohol abuse, HTN, HLD, DM, BPH, chronic pancreatitis, s/p gastric sleeve, Hx of herniated discs in his back, who presented to the ED with left arm pain and numbness with chest discomfort that started last . 1. Left radiculopathy likely secondary to pinched nerve - pain reproducable with abduction of shoulder and palpation of cervical spine - MRI shows some minimal disc bulges - Shoulder x-ray shows no acute process - follow up outpatient with Neurosurgery for EMG put in discharge plan (if symptoms do not self-resolve). - NSAIDs for pinched nerve contraindicated due to thrombocytopenia. 2. Alcohol withdrawal - No tremors on physical exam - The patient is taking Thiamin, Folic Acid, Vit B12 - The patient is taking the Ativan protocol. - The patient refuses to go to [facility] - The patient agrees to stop drinking alcohol. 3. Alcoholic liver disease - MRI/MRCP to evaluate biliary tract for acute on chronic liver disease - Q6 month AFP/Hepatic U/S to screen for hepatoma - Eventual EGD to screen for varices - viral hepatitis lab serologies - PT/INR daily - monitor LFTs - Avoid alcohol, hepatotoxic substances, and limit tylenol use - No prednisolone therapy for now 4. Macrocytosis secondary to chronic alcohol use - Vitamin b12 normal at 978 - Folate high at 21 5. r/o ACS - ECG shows NSR - troponins neg - ECHO EF 55% with no significant problems, besides for some mild MR. 6. Elevated lipase - The patient has chronic pancreatitis history 7. BPH - The patient is taking tamsulosin 8. DM - ISS 9. HTN - The patient is taking spirinolactone DVT PPx - Heparin Sq Dispo - Has an MRI hopefully for tonight/tomorrow. Visit type - Emergency Visit Emergency Visit: Yes ED Registration Date: 10/30/19 Care time: The patient presented to the Emergency Department on the above date and was hospitalized for further evaluation of their emergent condition. - New Patient This patient is new to me today: No - Critical Care Critical Care patient: No - Discharge Referral Referred to [facility] No ATTENDING PHYSICIAN STATEMENT I saw and evaluated the patient. I reviewed the resident's note and discussed the case with the resident. I agree with the resident's findings and plan as documented. SUBJECTIVE: OBJECTIVE: ASSESSMENT AND PLAN:
--- NOTE | 2019-11-02 18:52 | PN ---
Progress Note (short form) - Note Progress Note: NEUROSURGERY L arm numbness and pain. Nausea reported yesterday PE: Tmax 98.8. AF, VSS General- unremarkable; Neck- mild tenderness L trapezius and supraspinatus; decreased L lat bending CN- intact; Motor- 5/5 except L shoulder abduction 4-; sensatio- intact LT Decreased platelet count; Elevated LFT and INR; platelet 57k Covid test pending MRI C spine- mild spondylosis; L C3-4 and C4-5 uncovertebral joint hypertrophy, mild L C3-4 and C4-5 foramenal stenosis EtOH abuse/dependence with hepatic and pancreatic dysfunction Also anemia and thrombocytopenia C3-4 DDD with endplate sclerosis and mild kyphosis/L C3-4 and C4-5 foramenal stenosis Cont neurontin PT and meds If persistent symptoms beyond 3-4 weeks of medical tx, obtain EMG prior to further recommendations Surgery should not be undertaken lightly given his EtOH and DM; further hepatic dysfunction and thrombocytopenia would be problematic for any procedure Decreased EtOH intake and professional program for EtOH cessation advised
[2019-11-02] MEDS: ZOLPIDEM TARTRATE 5 MG TABLET PO PRN (21:40)
[2019-11-03] MEDS: oxyCODONE HCL 5 MG TABLET PO PRN ×3 (03:27→21:30)
[2019-11-03] MEDS ORDERED: LORazepam 0.5 MG TABLET PO ONE (05:00)
[2019-11-03] MEDS: GABAPENTIN 300 MG CAPSULE PO SCH ×3 (05:34→21:30)
[2019-11-03] MEDS: INSULIN SLIDING SCALE (NOVOLOG) 1 VIAL SQ SCH ×4 (06:25→21:35)
[2019-11-03 07:45] LABS: BASO % 1.1 % (0-2.0); EOS % 3.6 % (0-4.5); HEMATOCRIT 42.4 % (35.4-49); HEMOGLOBIN 14.1 GM/dL (11.7-16.9); LYMPH % 19.1 % (8-40); MCH 34.3 pg (25.7-33.7); MCHC 33.2 g/dl (32.0-35.9); MEAN CELL VOLUME 103.5 fl (80-96); MEAN PLT VOLUME 9.2 fl (7.5-11.1); MONO % 12.2 % (3.8-10.2); PLATELET COUNT 104 K/MM3 (134-434); RDW 15.5 % (11.9-15.9); WHITE BLOOD COUNT 5.7 K/mm3 (4.0-10.0)
[2019-11-03 07:55] LABS: INR 1.59 (0.83-1.09); PROTHROMBIN TIME (PATIENT) 18.9 SEC (9.7-13.0)
--- NOTE | 2019-11-03 08:06 | PN.GI ---
GI Progress Note Subjective: SOME CONFUSION TODAY NO REPORT OF MELENA / BRBR / N/V/ - Objective Vital Signs: Vital Signs Temperature 98.0 F 11/03/19 06:00 Pulse Rate 129 H 11/03/19 06:00 Respiratory Rate 20 11/03/19 06:00 Blood Pressure 133/96 11/03/19 06:00 O2 Sat by Pulse Oximetry (%) 99 11/02/19 20:45 Constitutional: No Distress Cardiovascular: Yes: WNL, Regular Rate and Rhythm Respiratory: Yes: WNL, Regular Gastrointestinal Inspection: Yes: WNL ...Auscultate: Yes: Normoactive Bowel Sounds Extremities: Yes: WNL Edema: No Labs: CBC, BMP 11/03/19 06:15 INR, PTT INR 1.59 (0.83-1.09) H 11/03/19 06:15 Problem List - Problems (1) Abnormal liver function tests Assessment/Plan: MRCP REVIEWED - CIRRHOSIS /CHOLEDOCHAL CYST - NEUROLOGY EVALUATION FOR UNSTEADY GAIT AND CONFUSION WILL ALSO CHECK NH3 LEVEL MAY NEED TO START LACTULOSE 30 CC TID CHECK CULTURES - C/W WITHDRAWAL PROTOCOL - AVOID HEPATOTOXIC MEDICATIONS - WILL F/U Code(s): R94.5 - ABNORMAL RESULTS OF LIVER FUNCTION STUDIES (2) Wernicke's disease Code(s): E51.2 - WERNICKE'S ENCEPHALOPATHY (3) Opiate use Code(s): F11.90 - OPIOID USE, UNSPECIFIED, UNCOMPLICATED (4) Alcohol abuse Code(s): F10.10 - ALCOHOL ABUSE, UNCOMPLICATED (5) Cirrhosis Code(s): K74.60 - UNSPECIFIED CIRRHOSIS OF LIVER Qualifiers: Hepatic cirrhosis type: alcoholic cirrhosis Ascites presence: without ascites Qualified Code(s): K70.30 - Alcoholic cirrhosis of liver without ascites
[2019-11-03 08:23] LABS: ALBUMIN 2.8 g/dl (3.4-5.0); BILIRUBIN,DIRECT 2.2 mg/dL (0.0-0.2); BILIRUBIN,TOTAL 3.3 mg/dL (0.2-1); BLOOD UREA NITROGEN 10.1 mg/dL (7-18); CALCIUM 8.5 mg/dL (8.5-10.1); MAGNESIUM 1.9 mg/dL (1.8-2.4); PHOSPHOROUS 4.5 mg/dL (2.5-4.9); TOT PROT 8.1 g/dl (6.4-8.2)
[2019-11-03 08:28] LABS: CREATININE 0.7 mg/dL (0.55-1.3)
[2019-11-03] MEDS: TAMSULOSIN HCL 0.4 MG CAP PO SCH (08:28)
[2019-11-03] MEDS ORDERED: levETIRAcetam 500 MG TABLET (FP) PO ONE ×2 (08:50→20:57)
--- NOTE | 2019-11-03 08:50 | PN ---
Progress Note (short form) - Note Progress Note: NEUROSURGERY L arm numbness and pain less PE: AF, VSS General- unremarkable; Neck- mild tenderness L trapezius and supraspinatus; decreased L lat bending CN- intact; Motor- 5/5 except L shoulder abduction 4-; sensatio- intact LT Decreased platelet count; Elevated LFT and INR; platelet 57k Covid test pending MRI C spine- mild spondylosis; L C3-4 and C4-5 uncovertebral joint hypertrophy, mild L C3-4 and C4-5 foramenal stenosis EtOH abuse/dependence with hepatic and pancreatic dysfunction Also anemia and thrombocytopenia C3-4 DDD with endplate sclerosis and mild kyphosis/L C3-4 and C4-5 foramenal stenosis Cont neurontin, on 600 mg tid PT and meds If persistent symptoms beyond 3-4 weeks of medical tx, obtain EMG prior to further recommendations Surgery should not be undertaken lightly given his EtOH and DM; further hepatic dysfunction and thrombocytopenia would be problematic for any procedure Decreased EtOH intake and professional program for EtOH cessation (pt had declined tx to detox/rehab program earlier)
[2019-11-03] MEDS ORDERED: levETIRAcetam 250 MG TABLET PO ONE ×2 (08:51→20:57)
[2019-11-03] MEDS: THIAMINE HCL 100 MG TABLET (FP) PO SCH (08:59)
[2019-11-03] MEDS: FOLIC ACID 1 MG TABLET (FP) PO SCH (08:59)
[2019-11-03] MEDS: CYANOCOBALAMIN (VITAMIN B-12) 100 MCG TABLET PO SCH (08:59)
[2019-11-03] MEDS: SPIRONOLACTONE 25 MG TABLET PO SCH (08:59)
[2019-11-03] MEDS: FUROSEMIDE 40 MG TABLET (FP) PO SCH (09:00)
[2019-11-03] MEDS: DULoxetine HCL 30 MG CAPSULE.DR PO SCH (09:01)
--- NOTE | 2019-11-03 12:29 | PN ---
Teaching Attending Note Name of Resident: Jomar Craven ATTENDING PHYSICIAN STATEMENT I saw and evaluated the patient. I reviewed the resident's note and discussed the case with the resident. I agree with the resident's findings and plan as documented. SUBJECTIVE: Seen and examined at bedside. Patient reports he is unsteady on his feet. Repo rts some dizziness. Physical exam shows positive Romberg sign. Arnel-Hallpike negative. Will obtain neurology consult OBJECTIVE: Last Vital Signs Temp Pulse Resp BP Pulse Ox 97.9 F 90 18 124/82 98 11/03/19 09:13 11/03/19 09:14 11/03/19 09:13 11/03/19 09:14 11/03/19 09:13 PE: Per resident note Labs/Imaging: reviewed ASSESSMENT AND PLAN: 49 year old male with past medical history of Alcohol abuse, Seizure Disorder, Liver Cirrhosis, HTN, HLD, DM 2, BPH, Obesity s/p gastric sleeve, Depression, Hx of C/T spine herniated discs, L Shoulder dislocation, presented to the ED with complaints of neck pain radiating down to shoulder, L chest, L arm with altered sensation LUE. 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 Neurosurgery consulted - no surgical intervention recommended. If persistent symptoms in 3-4 weeks, Neurosurgery recommends EMG and out-patient follow up. Continue Neurontin. On chronic opiates. #History of Alcohol Excess and Liver Cirrhosis with Acute Alcohol withdrawal and possible alcoholic hepatitis No symptoms of withdrawal at this time, however, concern for diagnosis of alcoholic hepatitis with DF today of 34, though does not appear clinically ill and has no RUQ tenderness. Meld score 19. 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 Lucia consulted: appreciate recs -pending MRI/MRCP abdomen for evaluation of liver -hep serologies -Needs outpt hepatology followup on DC -completed ativan withdrawal protocol -Thiamine, MVI, Folic Acid. -Declines transfer to [facility] to complete Detox protocol. #unstable gait in setting of dizziness/lightheadedness Appears to have proprioceptive deficit -positive romberg, negative arnel halpike, negative orthostatics -PT eval -neuro eval # Hypokalemia/Hypomagnesemia/Hypophosphatemia - repleted. # Mild LE edema ?sec to Cirrhosis/Hypoalbuminemia On Lasix/spironolactone daily. Echo - normal EF, impaired relaxation. # DM 2 - Hold oral anti-hyperglycemics. Novolog as per sliding scale. # BPH - on Tamsulosin # HTN - on Spironolactone # Depression - Continue Duloxetine. # Macrocytosis/Thrombocytopenia - sec to Cirrhosis/Alcohol excess. B12/Folate levels normal. # Seizure Disorder - resume home dose Keppra. DVT Px - SCDs. Heparin held due to Thrombocytopenia.
--- NOTE | 2019-11-03 12:55 | CON.NEURO ---
Consult Consult Specialty:: Yogesh Referred by:: PCP Reason for Consultation:: AMS - History of Present Illness History of Present Illness: his is a very pleasant 49-year-old right-handed history of alcohol abuse, history of neuropathy, history of chronic low back pain, history of chronic neck pain who presented to the hospital about 4 days ago with a chief complaint of difficulty withleft arm pain patient was sitting watching TV when he has sudden onset of sharp pain. Neurology was consulted to evaluate the patient for questionable Wernicke'sencephalopathy. Patientwas admitted to the floor patient was evaluated by multiple specialists including neurosurgery I agree the patient is not a candidate for surgical intervention I reviewed his MRI of the cervical spine no imaging of the brain was done. Patient admits to drinking heavy liquor. Patient admits that he has a problem and he needs help. 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: Seizure (questionable vs pseudoseizures ) Cardio/Vascular: Yes: HTN Pulmonary: Yes: Sleep Apnea Hepatobiliary: Yes: Cirrhosis Psych: Yes: Addictions (alcohol) Musculoskeletal: Yes: Chronic low back pain - Past Surgical History Past Surgical History: Yes: Arthrosocopy (left shoulder, right knee), Bariatric Surgery (gastric band), Hernia Repair (ventral hernia repair) - Alcohol/Substance Use Hx Alcohol Use: Yes (daily chr use) Number of Drinks Daily: 5 History of Substance Use: reports: None Date of Last Use: 03/24/17 - Smoking History Smoking history: Never smoked Have you smoked in the past 12 months: No Aproximately how many cigarettes per day: 5 - Social History Usual Living Arrangement: With Parent (mother) ADL: Independent 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 of Recent Travel: No Home Medications - Allergies Allergies/Adverse Reactions: Allergies Allergy/AdvReac Type Severity Reaction Status Date / Time No Known Allergies Allergy Verified 10/30/19 09:49 - Home Medications Home Medications: Ambulatory Orders Furosemide [Lasix] 40 mg PO DAILY 09/03/17 Tamsulosin HCl 0.4 mg PO DAILY 09/03/17 Zolpidem Tartrate [Ambien] 5 mg PO HS 09/03/17 oxyCODONE HCL [Roxicodone -] 30 mg PO Q6H 09/03/17 metFORMIN HCL [Metformin HCl] 500 mg PO BIDAC #30 tablet 02/20/18 Gabapentin 600 mg PO TID 05/28/18 Spironolactone [Aldactone -] 25 mg PO DAILY 05/28/18 Duloxetine HCl 30 mg PO DAILY 11/18/18 Ergocalciferol (Vitamin D2) [Vitamin D2] 50,000 unit PO WEEKLY 11/18/18 Folic Acid - 1 mg PO DAILY #30 tablet 11/19/18 Thiamine HCl [Vitamin B1 -] 100 mg PO DAILY #30 tablet 11/19/18 Cyclobenzaprine HCl [Flexeril -] 10 mg PO TID 10/30/19 levETIRAcetam [Keppra -] 1,250 mg PO TID 10/30/19 Pantoprazole Sodium [Protonix] 40 mg PO ASDIR 11/01/19 Family Medical History Family History: Unremarkable Review of Systems - Review of Systems Musculoskeletal: reports: Extremity Pain, Joint Pain Neurological: reports: Headache, Incoordination, Parasthesia Physical Exam-Neuro Vital Signs: Vital Signs Temperature 97.9 F 11/03/19 09:13 Pulse Rate 90 11/03/19 09:14 Respiratory Rate 18 11/03/19 09:13 Blood Pressure 124/82 11/03/19 09:14 O2 Sat by Pulse Oximetry (%) 98 11/03/19 10:00 Constitutional: Yes: Well Nourished Neck: Yes: WNL Labs: CBC, BMP 11/03/19 06:15 11/03/19 06:15 INR, PTT INR 1.59 (0.83-1.09) H 11/03/19 06:15 - Neuro Exam Level Of Consciousness: Yes: Oriented to Person, Oriented to Place, Oriented to Time Eyes: Yes: PERRLA Speech: WNL Dominant Hand: Right Cranial Nerves II-XII Intact: Yes Gag: Present DTR's: 1+ Left Bicep, 1+ Right Bicep, 1+ Left Tricep, 1+ Right Tricep Response to light touch: Normal Response to pain prick: Normal Response to temperature: Normal Motor Strength: 3/5: Left Arm, Right Arm, Left Leg, Right Leg Gait: Deferred Imaging - Results MRI: Image Reviewed Problem List - Problems (1) Wernicke's disease Code(s): E51.2 - WERNICKE'S ENCEPHALOPATHY (2) Opiate use Code(s): F11.90 - OPIOID USE, UNSPECIFIED, UNCOMPLICATED (3) Alcohol abuse Code(s): F10.10 - ALCOHOL ABUSE, UNCOMPLICATED (4) Low back pain Code(s): M54.5 - LOW BACK PAIN Qualifiers: Chronicity: unspecified (5) Mid back pain Code(s): M54.9 - DORSALGIA, UNSPECIFIED (6) Neuropathy Code(s): G62.9 - POLYNEUROPATHY, UNSPECIFIED Assessment/Plan I personally do not think the patient has Wernicke's encephalopathy 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 Neuro checks every 1 hour. 2. MRI of the brain with no contrast. 3. Check GGT. 4. Thiamine 100 mg daily. 5. Continue Neurontin the same. 6. Trial of Lyrica 50 mg twice a day. 7. Consider nerve conduction testing electromyography of the upper and lower extremities as an outpatient. 8. Fall precautions. 9. DVT prophylaxis. Thank you very much for allowing me to be part of this patient's neurological care will follow patient during the admission thank you David Zuñiga M.D. [phone]
--- NOTE | 2019-11-03 13:11 | PN ---
Physical Exam: SUBJECTIVE: Patient seen and examined at bedside. The patient reported vomiting nonbloody vomit after drinking a soda that morning. He has also felt a combination of vertigo and lightheadedness, feeling both like the room is spinning as well as lightheaded when he gets up. Rhomberg test positive. Arnel-Hallpike test negative. Orthostatics done in the room were negative (lying down: 88 bpm, 105/88 bp; standing up: 105 bpm, 108/78 bp). The patient reports not feeling steady on his feet. The nurse also reported that the patient is tachycardic on exertion. The patient denies constipation and diarrhea, but had a loose, non- watery stool. OBJECTIVE: Vital Signs Period Temp Pulse Resp BP Sys/Sarmiento Pulse Ox Last 24 Hr 97.2 F-98.1 F 82-129 18-20 108-133/58-96 97-99 GENERAL: The patient is awake, alert, and fully oriented, in no acute distress. HEAD: Normal with no signs of trauma. EYES: Extraocular movements intact. No ptosis. ENT: Ears normal, nares patent, oropharynx clear without exudates, moist mucous membranes. NECK: Trachea midline, full range of motion, supple. LUNGS: Breath sounds equal, clear to auscultation bilaterally, no wheezes, no crackles, no accessory muscle use. HEART: Regular rate and rhythm, S1, S2 without murmur, rub or gallop. ABDOMEN: Soft, nontender, nondistended, normoactive bowel sounds, no guarding, no rebound, no masses. EXTREMITIES: 2+ pulses, warm, well-perfused, no edema. NEUROLOGICAL: Normal speech, gait unsteady. Positive Rhomberg test. [place]- Hallpike test negative. PSYCH: Normal mood, normal affect. SKIN: Warm, dry, normal turgor, no rashes or lesions noted Laboratory Results - last 24 hr 11/02/19 11/02/19 11/03/19 17:10 21:39 06:15 WBC 5.7 RBC 4.10 Hgb 14.1 Hct 42.4 MCV 103.5 H MCH 34.3 H MCHC 33.2 RDW 15.5 Plt Count 104 L D MPV 9.2 Absolute Neuts (auto) 3.6 Neutrophils % 64.0 Lymphocytes % 19.1 Monocytes % 12.2 H Eosinophils % 3.6 Basophils % 1.1 Nucleated RBC % 0 PT with INR INR Sodium Potassium Chloride Carbon Dioxide Anion Gap BUN Creatinine Est GFR (CKD-EPI)AfAm Est GFR (CKD-EPI)NonAf POC Glucometer 120 143 Random Glucose Calcium Phosphorus Magnesium Total Bilirubin Direct Bilirubin AST ALT Alkaline Phosphatase Total Protein Albumin 11/03/19 11/03/19 11/03/19 06:15 06:15 11:58 WBC RBC Hgb Hct MCV MCH MCHC RDW Plt Count MPV Absolute Neuts (auto) Neutrophils % Lymphocytes % Monocytes % Eosinophils % Basophils % Nucleated RBC % PT with INR 18.90 H INR 1.59 H Sodium 133 L Potassium 4.0 Chloride 96 L Carbon Dioxide 31 Anion Gap 6 L BUN 10.1 Creatinine 0.7 Est GFR (CKD-EPI)AfAm 128.43 Est GFR (CKD-EPI)NonAf 110.81 POC Glucometer 108 Random Glucose 103 Calcium 8.5 Phosphorus 4.5 Magnesium 1.9 Total Bilirubin 3.3 H Direct Bilirubin 2.2 H AST 114 H ALT 54 Alkaline Phosphatase 150 H Total Protein 8.1 Albumin 2.8 L Active Medications Generic Name Dose Route Start Last Admin Trade Name Freq PRN Reason Stop Dose Admin Cyanocobalamin 100 mcg 10/30/19 18:30 11/03/19 08:59 Vitamin B12 - PO 100 mcg DAILY LALITHA Administration Duloxetine HCl 30 mg 10/31/19 10:00 11/03/19 09:01 Cymbalta - PO 30 mg DAILY LALITHA Administration Folic Acid 1 mg 10/30/19 18:30 11/03/19 08:59 Folic Acid - PO 1 mg DAILY LALITHA Administration Furosemide 40 mg 10/31/19 10:00 11/03/19 09:00 Lasix - PO 40 mg DAILY LALITHA Administration Gabapentin 600 mg 10/30/19 22:00 11/03/19 05:34 Neurontin - PO 600 mg TID LALITHA Administration Insulin Aspart 1 vial 10/30/19 11:00 11/03/19 11:59 Novolog Vial Sliding Scale - SQ Not Given ACHS [facility] Protocol Levetiracetam 1,000 mg/ 1,250 mg 11/01/19 22:00 11/03/19 09:01 Levetiracetam 250 mg PO 1,250 mg BID LALITHA Administration Oxycodone HCl 30 mg 11/02/19 15:57 11/03/19 10:38 Roxicodone - PO 30 mg Q6H PRN Administration PAIN LEVEL 7 - 10 Spironolactone 25 mg 10/31/19 10:00 11/03/19 08:59 Aldactone - PO 25 mg DAILY LALITHA Administration Tamsulosin HCl 0.4 mg 10/31/19 08:30 11/03/19 08:28 Flomax - PO 0.4 mg DAILY@0830 LALITHA Administration Thiamine HCl 100 mg 10/30/19 18:30 11/03/19 08:59 Vitamin B1 - PO 100 mg DAILY LALITHA Administration Zolpidem Tartrate 5 mg 10/30/19 22:00 11/02/19 21:40 Ambien - PO 5 mg HS PRN Administration INSOMNIA ASSESSMENT/PLAN: 49 year old male with past medical history of Alcohol abuse, HTN, HLD, DM, BPH, chronic pancreatitis, s/p gastric sleeve, Hx of herniated discs in his back, who presented to the ED with left arm pain and numbness with chest discomfort that started last . 1. Left radiculopathy likely secondary to pinched nerve - pain reproducable with abduction of shoulder and palpation of cervical spine - MRI shows some minimal disc bulges - Shoulder x-ray shows no acute process - follow up outpatient with Neurosurgery for EMG put in discharge plan (if symptoms do not self-resolve). - NSAIDs for pinched nerve contraindicated due to thrombocytopenia. 2. Unsteady on feet with dizziness and lightheadedness secondary to peripheral neuropathy - Rhomberg test positive - PT consulted - Neurology consulted 3. Alcohol withdrawal - resolved - No tremors on physical exam - The patient is taking Thiamin, Folic Acid, Vit B12 - The patient has finished the Ativan protocol. - The patient refuses to go to [facility] - The patient agrees to stop drinking alcohol. 4. Alcoholic liver disease - MELD Score: 19, Discriminate Function: 30.4 - MRI/MRCP to evaluate biliary tract for acute on chronic liver disease. Waiting for report. - Q6 month AFP/Hepatic U/S to screen for hepatoma - Eventual EGD to screen for varices - viral hepatitis lab serologies - PT/INR daily - monitor LFTs - Avoid alcohol, hepatotoxic substances, and limit tylenol use - No prednisolone therapy for now - tachycardia on exertion likely secondary to chronic liver disease 5. Macrocytosis secondary to chronic alcohol use - Vitamin b12 normal at 978 - Folate high at 21 6. r/o ACS - ECG shows NSR - troponins neg - ECHO EF 55% with no significant problems, besides for some mild MR. 7. BPH - The patient is taking tamsulosin 8. DM - ISS 9. HTN - The patient is taking spirinolactone DVT PPx - Heparin held. Thrombocytopenia Dispo - Waiting for MRI report. Possible discharge tomorrow. Visit type - Emergency Visit Emergency Visit: Yes ED Registration Date: 10/30/19 Care time: The patient presented to the Emergency Department on the above date and was hospitalized for further evaluation of their emergent condition. - New Patient This patient is new to me today: No - Critical Care Critical Care patient: No - Discharge Referral Referred to [facility] No ATTENDING PHYSICIAN STATEMENT I saw and evaluated the patient. I reviewed the resident's note and discussed the case with the resident. I agree with the resident's findings and plan as documented. SUBJECTIVE: OBJECTIVE: ASSESSMENT AND PLAN:
[2019-11-03] MEDS: HEPARIN NA (PORCINE) 5,000 UNITS/ML 1ML VIAL SQ SCH ×2 (15:14→21:25)
[2019-11-03] MEDS: PREGABALIN 50 MG CAPSULE PO SCH ×2 (15:14→21:30)
[2019-11-03] MEDS: ZOLPIDEM TARTRATE 5 MG TABLET PO PRN (21:30)
[2019-11-04] MEDS: INSULIN SLIDING SCALE (NOVOLOG) 1 VIAL SQ SCH ×4 (06:12→21:57)
[2019-11-04] MEDS: GABAPENTIN 300 MG CAPSULE PO SCH ×3 (06:13→21:45)
[2019-11-04] MEDS: oxyCODONE HCL 5 MG TABLET PO PRN ×3 (06:13→21:47)
[2019-11-04 06:40] LABS: HEMATOCRIT 41.1 % (35.4-49); HEMOGLOBIN 13.6 GM/dL (11.7-16.9); MCH 34.4 pg (25.7-33.7); MCHC 33.2 g/dl (32.0-35.9); MEAN CELL VOLUME 103.7 fl (80-96); MEAN PLT VOLUME 9.1 fl (7.5-11.1); PLATELET COUNT 88 K/MM3 (134-434); RBC 3.96 M/mm3 (4.00-5.60); RDW 15.6 % (11.9-15.9); WHITE BLOOD COUNT 4.6 K/mm3 (4.0-10.0)
[2019-11-04 07:15] LABS: ALBUMIN 2.5 g/dl (3.4-5.0); BILIRUBIN,TOTAL 2.8 mg/dL (0.2-1); BLOOD UREA NITROGEN 8.1 mg/dL (7-18); CALCIUM 8.3 mg/dL (8.5-10.1); CREATININE 0.6 mg/dL (0.55-1.3); MAGNESIUM 1.6 mg/dL (1.8-2.4); PHOSPHOROUS 3.2 mg/dL (2.5-4.9); POTASSIUM 3.7 mmol/L (3.5-5.1); TOT PROT 7.6 g/dl (6.4-8.2)
[2019-11-04] MEDS ORDERED: MAGNESIUM CL 64 MG TABLET.SA PO ONE (08:15)
[2019-11-04] MEDS ORDERED: PT OWN MED DRAWER 7, Y5N ONE ×3 (08:20→10:34)
[2019-11-04] MEDS ORDERED: levETIRAcetam 500 MG TABLET (FP) PO ONE ×2 (08:47→21:36)
[2019-11-04] MEDS ORDERED: levETIRAcetam 250 MG TABLET PO ONE ×2 (08:47→21:37)
[2019-11-04] MEDS: TAMSULOSIN HCL 0.4 MG CAP PO SCH (08:55)
[2019-11-04] MEDS: SPIRONOLACTONE 25 MG TABLET PO SCH (09:00)
[2019-11-04] MEDS: FOLIC ACID 1 MG TABLET (FP) PO SCH (09:00)
[2019-11-04] MEDS: PREGABALIN 50 MG CAPSULE PO SCH ×2 (09:00→21:44)
[2019-11-04] MEDS: FUROSEMIDE 40 MG TABLET (FP) PO SCH (09:00)
[2019-11-04] MEDS: THIAMINE HCL 100 MG TABLET (FP) PO SCH (09:00)
[2019-11-04] MEDS: DULoxetine HCL 30 MG CAPSULE.DR PO SCH (09:00)
[2019-11-04] MEDS: CYANOCOBALAMIN (VITAMIN B-12) 100 MCG TABLET PO SCH (10:05)
[2019-11-04] MEDS: LACTULOSE 20 GM/30 ML UDC (FOR ORAL USE ONLY) PO SCH ×3 (10:37→21:44)
--- NOTE | 2019-11-04 12:33 | PN ---
Teaching Attending Note Name of Resident: Jomar Craven ATTENDING PHYSICIAN STATEMENT I saw and evaluated the patient. I reviewed the resident's note and discussed the case with the resident. I agree with the resident's findings and plan as documented. SUBJECTIVE: Seen and examined at bedside. Patient still unsteady on his feet. GGT 578 and ammonia 93.8. Patient reports feeling a little "off" and "not totally with it". States he did not realize what day of the week it was. Will start on lactulose for treatment of presumed hepatic encephalopathy with goal of 3 bowel movements per day. OBJECTIVE: Last Vital Signs Temp Pulse Resp BP Pulse Ox 98.2 F 106 H 19 122/85 98 11/04/19 08:54 11/04/19 08:54 11/04/19 08:54 11/04/19 08:54 11/04/19 08:54 PE: Per resident note Labs/Imaging: reviewed ASSESSMENT AND PLAN: 49 year old male with past medical history of Alcohol abuse, Seizure Disorder, Liver Cirrhosis, HTN, HLD, DM 2, BPH, Obesity s/p gastric sleeve, Depression, Hx of C/T spine herniated discs, L Shoulder dislocation, presented to the ED with complaints of neck pain radiating down to shoulder, L chest, L arm with altered sensation LUE. 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 Neurosurgery consulted - no surgical intervention recommended. If persistent symptoms in 3-4 weeks, Neurosurgery recommends EMG and out-patient follow up. Continue Neurontin. On chronic opiates. #hepatic encephalopathy -start lactulose 20mg TID and titrate to 3 BM daily #History of Alcohol Excess and Liver Cirrhosis with Acute Alcohol withdrawal and possible alcoholic hepatitis No symptoms of withdrawal at this time, however, concern for diagnosis of alcoholic hepatitis with DF today of 34, though does not appear clinically ill and has no RUQ tenderness. Meld score 19. Patient does not follow with outpatient transport manager -importance of alcohol abstenance discussed in detail with pt -Dr. Lucia consulted: appreciate recs -pending MRI/MRCP abdomen for evaluation of liver -hep serologies -Needs outpt hepatology followup on DC -completed ativan withdrawal protocol -Thiamine, MVI, Folic Acid. -Declines transfer to [facility] to complete Detox protocol. #unstable gait in setting of dizziness/lightheadedness Appears to have proprioceptive deficit, most likely 2/2 hepatic encephalopathy -positive romberg, negative bennie halpike, negative orthostatics -PT eval -neuro eval # Hypokalemia/Hypomagnesemia/Hypophosphatemia - repleted. # Mild LE edema ?sec to Cirrhosis/Hypoalbuminemia On Lasix/spironolactone daily. Echo - normal EF, impaired relaxation. # DM 2 - Hold oral anti-hyperglycemics. Novolog as per sliding scale. # BPH - on Tamsulosin # HTN - on Spironolactone # Depression - Continue Duloxetine. # Macrocytosis/Thrombocytopenia - sec to Cirrhosis/Alcohol excess. B12/Folate levels normal. # Seizure Disorder - resume home dose Keppra. DVT Px - SCDs. Heparin held due to Thrombocytopenia.
--- NOTE | 2019-11-04 14:14 | PN.GI ---
GI Progress Note Subjective: Alert, awake States feeling well Does not remember events of yesterday - Objective Vital Signs: Vital Signs Temperature 98.2 F 11/04/19 08:54 Pulse Rate 106 H 11/04/19 08:54 Respiratory Rate 19 11/04/19 08:54 Blood Pressure 122/85 11/04/19 08:54 O2 Sat by Pulse Oximetry (%) 98 11/04/19 09:00 Constitutional: Calm Eyes: No: Sclera Icterus Cardiovascular: Yes: Regular Rate and Rhythm Respiratory: Yes: CTA Bilaterally Gastrointestinal Inspection: No: Distention ...Auscultate: Yes: Normoactive Bowel Sounds ...Palpate: Yes: Soft. No: Hepatomegaly, Splenomegaly, Tenderness ...Percussion: No: Tympanitic Edema: No (No LE edema) Neurological: Yes: Alert, Oriented (x 3). No: [facility] Labs: CBC, BMP 11/04/19 05:33 11/04/19 05:33 INR, PTT INR 1.59 (0.83-1.09) H 11/03/19 06:15 Problem List - Problems (1) Abnormal liver function tests Assessment/Plan: Improved. Appears to be at baseline. continue to monitor Alcohol cessation Can have surgery comment on hydropic gallbladder noted on MRI Code(s): R94.5 - ABNORMAL RESULTS OF LIVER FUNCTION STUDIES (2) Confusion Assessment/Plan: Unclear if this was from HE Can continue lactulose for now. Titrate for 3-4 loose BM's per day. Avoid excessive diarrhea Neurology eval Code(s): R41.0 - DISORIENTATION, UNSPECIFIED
[2019-11-04] MEDS: HEPARIN NA (PORCINE) 5,000 UNITS/ML 1ML VIAL SQ SCH ×2 (14:17→21:50)
--- NOTE | 2019-11-04 18:08 | PN ---
Physical Exam: SUBJECTIVE: Patient seen and examined at bedside. The patient reports feeling chilly, but denies nausea, vomiting, shortness of breath, chest pain, diarrhea, and constipation. The patient also reports that he was confused about the day of the week. OBJECTIVE: Vital Signs Period Temp Pulse Resp BP Sys/Sarmiento Pulse Ox Last 24 Hr 97.7 F-98.5 F 81-108 18-20 97-122/65-85 98-99 GENERAL: The patient is awake, alert, and fully oriented, in no acute distress. HEAD: Normal with no signs of trauma. EYES: Extraocular movements intact. No ptosis. ENT: Ears normal, nares patent, oropharynx clear without exudates, moist mucous membranes. NECK: Trachea midline, full range of motion, supple. LUNGS: Breath sounds equal, clear to auscultation bilaterally, no wheezes, no crackles, no accessory muscle use. HEART: Tachycardic, S1, S2 without murmur, rub or gallop. ABDOMEN: Soft, nontender, nondistended, normoactive bowel sounds, some guarding, no rebound, hepatomegaly but no splenomegaly, no masses. EXTREMITIES: 2+ pulses, warm, well-perfused, no edema. NEUROLOGICAL: Normal speech. Positive Rhomberg sign. PSYCH: Normal mood, normal affect. SKIN: Warm, dry, normal turgor, no rashes or lesions noted Laboratory Results - last 24 hr 11/03/19 11/04/19 11/04/19 21:28 05:33 05:33 WBC 4.6 RBC 3.96 L Hgb 13.6 Hct 41.1 MCV 103.7 H MCH 34.4 H MCHC 33.2 RDW 15.6 Plt Count 88 L MPV 9.1 Sodium Potassium Chloride Carbon Dioxide Anion Gap BUN Creatinine Est GFR (CKD-EPI)AfAm Est GFR (CKD-EPI)NonAf POC Glucometer 121 Random Glucose Calcium Phosphorus Magnesium Total Bilirubin AST ALT Alkaline Phosphatase Ammonia 93.80 H Total Protein Albumin 11/04/19 11/04/19 11/04/19 05:33 06:10 12:09 WBC RBC Hgb Hct MCV MCH MCHC RDW Plt Count MPV Sodium 134 L Potassium 3.7 Chloride 98 Carbon Dioxide 30 Anion Gap 6 L BUN 8.1 Creatinine 0.6 Est GFR (CKD-EPI)AfAm 136.83 Est GFR (CKD-EPI)NonAf 118.06 POC Glucometer 94 93 Random Glucose 91 Calcium 8.3 L Phosphorus 3.2 Magnesium 1.6 L Total Bilirubin 2.8 H AST 121 H ALT 59 Alkaline Phosphatase 197 H Ammonia Total Protein 7.6 Albumin 2.5 L 11/04/19 16:57 WBC RBC Hgb Hct MCV MCH MCHC RDW Plt Count MPV Sodium Potassium Chloride Carbon Dioxide Anion Gap BUN Creatinine Est GFR (CKD-EPI)AfAm Est GFR (CKD-EPI)NonAf POC Glucometer 103 Random Glucose Calcium Phosphorus Magnesium Total Bilirubin AST ALT Alkaline Phosphatase Ammonia Total Protein Albumin Active Medications Generic Name Dose Route Start Last Admin Trade Name Freq PRN Reason Stop Dose Admin Cyanocobalamin 100 mcg 10/30/19 18:30 11/04/19 10:05 Vitamin B12 - PO 100 mcg DAILY LALITHA Administration Duloxetine HCl 30 mg 10/31/19 10:00 11/04/19 09:00 Cymbalta - PO 30 mg DAILY LALITHA Administration Folic Acid 1 mg 10/30/19 18:30 11/04/19 09:00 Folic Acid - PO 1 mg DAILY LALITHA Administration Furosemide 40 mg 10/31/19 10:00 11/04/19 09:00 Lasix - PO 40 mg DAILY LALITHA Administration Gabapentin 600 mg 10/30/19 22:00 11/04/19 14:17 Neurontin - PO 600 mg TID LALITHA Administration Heparin Sodium (Porcine) 5,000 unit 11/03/19 14:00 11/04/19 14:17 Heparin - SQ 5,000 unit TID LALITHA Administration Insulin Aspart 1 vial 10/30/19 11:00 11/04/19 16:58 Novolog Vial Sliding Scale - SQ Not Given [facility] Protocol Lactulose 20 gm 11/04/19 10:10 11/04/19 14:18 Cephulac (Oral Use) PO 20 gm TID LALITHA Administration Levetiracetam 1,000 mg/ 1,250 mg 11/01/19 22:00 11/04/19 09:00 Levetiracetam 250 mg PO 1,250 mg BID LALITHA Administration Oxycodone HCl 30 mg 11/02/19 15:57 11/04/19 12:36 Roxicodone - PO 30 mg Q6H PRN Administration PAIN LEVEL 7 - 10 Pregabalin 50 mg 11/03/19 13:45 11/04/19 09:00 Lyrica - PO 50 mg BID LALITHA Administration Spironolactone 25 mg 10/31/19 10:00 11/04/19 09:00 Aldactone - PO 25 mg DAILY LALITHA Administration Tamsulosin HCl 0.4 mg 10/31/19 08:30 11/04/19 08:55 Flomax - PO 0.4 mg DAILY@0830 LALITHA Administration Thiamine HCl 100 mg 10/30/19 18:30 11/04/19 09:00 Vitamin B1 - PO 100 mg DAILY LALITHA Administration ASSESSMENT/PLAN: 49 year old male with past medical history of Alcohol abuse, HTN, HLD, DM, BPH, chronic pancreatitis, s/p gastric sleeve, Hx of herniated discs in his back, who presented to the ED with left arm pain and numbness with chest discomfort that started last . 1. Alcoholic liver disease - MELD Score: 18, Discriminate Function: 29.9 - Q6 month AFP/Hepatic U/S to screen for hepatoma - Eventual EGD to screen for varices - viral hepatitis lab serologies - PT/INR daily - monitor LFTs - Avoid alcohol, hepatotoxic substances, and limit tylenol use - No prednisolone therapy for now - tachycardia on exertion likely secondary to chronic liver disease - GGT 578 2. Confusion and unsteadiness on feet with dizziness and lightheadedness secondary to hepatic encephalopathy - Rhomberg test positive - Ammonia 93.8 - Patient is receiving lactulose for the hepatic encephalopathy 3. Alcohol withdrawal - resolved - No tremors on physical exam - The patient is taking Thiamin, Folic Acid, Vit B12 - The patient has finished the Ativan protocol. - The patient refuses to go to [facility] - The patient agrees to stop drinking alcohol. 4. Left radiculopathy likely secondary to pinched nerve - pain reproducable with abduction of shoulder and palpation of cervical spine - MRI shows some minimal disc bulges - Shoulder x-ray shows no acute process - follow up outpatient with Neurosurgery for EMG put in discharge plan (if symptoms do not self-resolve). - NSAIDs for pinched nerve contraindicated due to thrombocytopenia. 5. Macrocytosis secondary to chronic alcohol use - Vitamin b12 normal at 978 - Folate high at 21 6. r/o ACS - ECG shows NSR - troponins neg - ECHO EF 55% with no significant problems, besides for some mild MR. 7. BPH - The patient is taking tamsulosin 8. DM - ISS 9. HTN - The patient is taking spirinolactone DVT PPx - Heparin SQ Dispo - Waiting to see what the ammonia will be tomorrow, and if the patient's confusion is less severe tomorrow Visit type - Emergency Visit Emergency Visit: Yes ED Registration Date: 10/30/19 Care time: The patient presented to the Emergency Department on the above date and was hospitalized for further evaluation of their emergent condition. - New Patient This patient is new to me today: No - Critical Care Critical Care patient: No - Discharge Referral Referred to [facility] No ATTENDING PHYSICIAN STATEMENT I saw and evaluated the patient. I reviewed the resident's note and discussed the case with the resident. I agree with the resident's findings and plan as documented. SUBJECTIVE: OBJECTIVE: ASSESSMENT AND PLAN:
[2019-11-04] MEDS ORDERED: ZOLPIDEM TARTRATE 5 MG TABLET PO ONE (21:03)
[2019-11-05] MEDS: GABAPENTIN 300 MG CAPSULE PO SCH ×2 (06:13→13:37)
[2019-11-05] MEDS: HEPARIN NA (PORCINE) 5,000 UNITS/ML 1ML VIAL SQ SCH ×2 (06:13→13:39)
[2019-11-05] MEDS: LACTULOSE 20 GM/30 ML UDC (FOR ORAL USE ONLY) PO SCH ×2 (06:13→13:37)
[2019-11-05] MEDS: INSULIN SLIDING SCALE (NOVOLOG) 1 VIAL SQ SCH ×3 (06:29→17:04)
[2019-11-05 07:43] LABS: ALBUMIN 2.7 g/dl (3.4-5.0); BLOOD UREA NITROGEN 10.5 mg/dL (7-18); CALCIUM 8.8 mg/dL (8.5-10.1); CREATININE 0.7 mg/dL (0.55-1.3); MAGNESIUM 1.9 mg/dL (1.8-2.4); POTASSIUM 4.4 mmol/L (3.5-5.1); TOT PROT 8.1 g/dl (6.4-8.2)
[2019-11-05] MEDS ORDERED: levETIRAcetam 500 MG TABLET (FP) PO ONE (08:22)
[2019-11-05] MEDS ORDERED: levETIRAcetam 250 MG TABLET PO ONE (08:23)
[2019-11-05] MEDS: TAMSULOSIN HCL 0.4 MG CAP PO SCH (08:31)
[2019-11-05 08:37] LABS: INR 1.56 (0.83-1.09); PROTHROMBIN TIME (PATIENT) 18.5 SEC (9.7-13.0)
[2019-11-05] MEDS: PREGABALIN 50 MG CAPSULE PO SCH (09:23)
[2019-11-05] MEDS: FUROSEMIDE 40 MG TABLET (FP) PO SCH (09:23)
[2019-11-05] MEDS: FOLIC ACID 1 MG TABLET (FP) PO SCH (09:23)
[2019-11-05] MEDS: DULoxetine HCL 30 MG CAPSULE.DR PO SCH (09:23)
[2019-11-05] MEDS: SPIRONOLACTONE 25 MG TABLET PO SCH (09:23)
[2019-11-05] MEDS: THIAMINE HCL 100 MG TABLET (FP) PO SCH (09:24)
[2019-11-05] MEDS: CYANOCOBALAMIN (VITAMIN B-12) 100 MCG TABLET PO SCH (09:27)
[2019-11-05] MEDS ORDERED: PT OWN MED DRAWER 7, Y5N ONE (09:27)
--- NOTE | 2019-11-05 13:22 | PN ---
Teaching Attending Note Name of Resident: Jomar Craven ATTENDING PHYSICIAN STATEMENT I saw and evaluated the patient. I reviewed the resident's note and discussed the case with the resident. I agree with the resident's findings and plan as documented. SUBJECTIVE: Seen and examined at bedside. Patient is more mentally alert today and is more stable on his feet, though he still has positive Romberg sign and walks with a wide gait. Ammonia levels have decreased on lactulose. Patient is medically cleared for discharge. He will be sent home on lactulose 3 times daily and his home medications and will be referred to [facility] for further evaluation and management of his alcoholic cirrhosis. 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 OBJECTIVE: Last Vital Signs Temp Pulse Resp BP Pulse Ox 97.9 F 87 20 127/73 97 11/05/19 09:22 11/05/19 09:22 11/05/19 09:22 11/05/19 09:22 11/05/19 09:22 PE: Per resident note Labs/Imaging: reviewed ASSESSMENT AND PLAN: 49 year old male with past medical history of Alcohol abuse, Seizure Disorder, Liver Cirrhosis, HTN, HLD, DM 2, BPH, Obesity s/p gastric sleeve, Depression, Hx of C/T spine herniated discs, L Shoulder dislocation, presented to the ED with complaints of neck pain radiating down to shoulder, L chest, L arm with altered sensation LUE. While in the hospital patient was found to be in mild alcohol withdrawal and was also noted to have acute on chronic liver failure secondary to alcoholic cirrhosis. Stay was complicated by hepatic encephalopathy and unstable gait. Patient was started on lactulose with improvement in his mentation and his gait. Was seen by neurology who did not believe it to be consistent with Warnicke's encephalopathy. The importance of alcohol abstinence was discussed extensively with the patient who would like to quit. He will be discharged home with follow-up at [facility] for further treatment and evaluation of his cirrhosis. 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
[2019-11-05 13:37] VITALS: TEMP 98
[2019-11-05 15:48] VITALS: BP 129/87; PULSE 89
--- NOTE | 2019-11-05 17:58 | DS ---
Physical Exam: SUBJECTIVE: Patient seen and examined at bedside. The patient denies nausea, vomiting, shortness of breath, chest pain, diarrhea, and constipation. The patient has no tremor when he stretches out his arms, and no or minimal asterixis when he holds up his hands with his arms outstretched. OBJECTIVE: Vital Signs Period Temp Pulse Resp BP Sys/Sarmiento Pulse Ox Last 24 Hr 97.9 F-98.0 F 83-115 18-20 98-129/60-89 96-98 PHYSICAL EXAM GENERAL: The patient is awake, alert, and fully oriented, in no acute distress. HEAD: Normal with no signs of trauma. EYES: Extraocular movements intact. No ptosis. ENT: Ears normal, nares patent, oropharynx clear without exudates, moist mucous membranes. NECK: Trachea midline, full range of motion, supple. LUNGS: Breath sounds equal, clear to auscultation bilaterally, no wheezes, no crackles, no accessory muscle use. HEART: Tachycardic, S1, S2 without murmur, rub or gallop. ABDOMEN: Soft, nontender, nondistended, normoactive bowel sounds, some guarding, no rebound, hepatomegaly but no splenomegaly, no masses. EXTREMITIES: 2+ pulses, warm, well-perfused, no edema. NEUROLOGICAL: Normal speech. Positive Rhomberg sign. PSYCH: Normal mood, normal affect. SKIN: Warm, dry, normal turgor, no rashes or lesions noted LABS Laboratory Results - last 24 hr 10/30/19 11/05/19 11/05/19 08:00 05:20 05:20 PT with INR Cancelled INR Cancelled Sodium Potassium Chloride Carbon Dioxide Anion Gap BUN Creatinine Est GFR (CKD-EPI)AfAm Est GFR (CKD-EPI)NonAf Random Glucose Calcium Magnesium Total Bilirubin AST ALT Alkaline Phosphatase Ammonia 67.50 H Total Protein Albumin COVID-19 ([facility]) Not detected 11/05/19 11/05/19 05:20 07:50 PT with INR 18.50 H INR 1.56 H Sodium 133 L Potassium 4.4 Chloride 95 L Carbon Dioxide 33 H Anion Gap 6 L BUN 10.5 Creatinine 0.7 Est GFR (CKD-EPI)AfAm 128.43 Est GFR (CKD-EPI)NonAf 110.81 Random Glucose 89 Calcium 8.8 Magnesium 1.9 Total Bilirubin 3.0 H AST 126 H ALT 66 H Alkaline Phosphatase 185 H Ammonia Total Protein 8.1 Albumin 2.7 L COVID-19 ([facility]) HOSPITAL COURSE: Date of Admission:10/30/19 49 year old male with past medical history of Alcohol abuse, HTN, HLD, DM, BPH, chronic pancreatitis, s/p gastric sleeve, Hx of herniated discs in his back, who presented to the ED with left arm pain and numbness with chest discomfort that started last 10/28/19. ECG and troponins were negative. Urine Toxicology was positive for 303.4 Alcohol, as well as opiates, benzodiazepines, and marijuana. The patient's pharmacy confirmed that the patient received opiates and benzodiazepines from them for medical reasons, and the patient reported that he smokes medical marijuana. The left arm pain was reproducible with abduction of shoulder and palpation of cervical spine on physical exam. Cervical MRI showed C4-C5 mild narrowing of left neural foramen and C5-C6 and C6-C7 minimal disc bulges. A shoulder x-ray showed no acute process. The patient was put on Ativan protocol for alcohol withdrawal, as well as the banana bag with Thiamin, Folic Acid, and Vitamin B12. The patient reported that he drinks a 6 pack a day and a 12 pack on the weekends, and that he would not like to go to [facility] for detox. The patient's LFTs were also elevated, significant hepatomegaly was found on physical exam, and imaging suggested liver cirrhosis. The patient's MELD score was calculated to be 18, and an appointment with the liver doctor, as well as the liver transplant center, was initiated. During the patient's hospital stay, the patient developed confusion and unsteadiness on feet with lightheadedness. He was found to have an elevated Ammonia of 93.8 and given lactulose, which caused the Ammonia level to decrease. The patient was discharged with instructions to follow up with the Neurosurgeon Dr. Sha Sung in 3 to 4 weeks for an EMG if the left radiculopathy arm pain does not self-resolve. The patient was instructed to also follow up with the Plant Operations Manager Dr. Chandrika Velasquez for his thrombocytopenia (PLT 60 to 100) and large red blood cells (MCV of 102). Date of Discharge: 11/05/19 Minutes to complete discharge: 54 Discharge Summary Problems reviewed: Yes Reason For Visit: OPIOID USE,PALPITATIONS,ELEV LIVER FUNCTION, Current Active Problems Abnormal liver function tests (Acute) Confusion (Acute) Wernicke's disease (Acute) Cannabis dependence (Chronic) Opiate use (Chronic) Condition: Stable - Instructions Diet, Activity, Other Instructions: You were admitted to the hospital due to left arm pain and chest discomfort. While you were in the hospital you were evaluated with lab work, blood work, and imaging, including an MRI of your head. We determined that you have a nerve problem, such as possibly a pinched nerve. We had a specialist evaluate you, and we treated you with some pain medications. Labwork showed that you had elevated ammonia in your blood, likely from the poor liver function. The levels improved after administration of lactulose, which binds to excessive ammonia. You were negative for COVID. While you were at the hospital, we found on blood work that your blood cells were unusually big and you had few platelets in your blood. Please follow up with the jacquard loom carpet weaver about this finding. Imaging Findings During your stay at the hospital, we found the following findings: MRI of the spine in your neck, which are the nerves that go to your arm, showed mild narrowing of your spinal canal with small disc bulges. MRI of the abdomen, which showed liver cirrhosis, an enlarged spleen, swollen gallbladder An ECHO of your heart did not show any significant abnormalities. Medications Please START taking: -Cyancobalamin[VITAMIN B12] 100mcg, once daily -Thiamine[VITAMIN B1], 100mg, once daily -Folic Acid, 1mg, once daily -Lactulose[CEPHAULAC] 30g, three times daily: take more or fewer doses of this medication until you have about 3-4 bowel movements a day Please continue all of your medications as prescribed. Limit acetaminophen to less than 2000mg daily Follow ups Please follow up with the neurosurgeon Dr. Sha Sung in 3 to 4 weeks if your pain does not resolve on its own for an electromyograph for further evaluation of your arm pain. Please follow up with the jacquard loom carpet weaver Dr. Chandrika Velasquez in 1 week regarding your low platelets and unusually large red blood cells. Please call the [facility] liver transplant center at or the [facility] liver clinic at to make an appointment with Dr. Marla Gomez or Dr. Neil Logan regarding liver transplantation evaluation Alternatively, your primary care physician Dr. Neil Rush could also give you recommendations for liver transplant centers. Please follow up with your primary care physician Dr. Neil Rush. If you experience worsening of your symptoms, chest pain, lightheadedness, nausea, abdominal pain, difficulty breathing, please come to the emergency room. Referrals: Familia Salazar DO [Staff Physician] - (Liver cirrhosis with MELD score of 19.) Pineda Dalton MD [Staff Physician] - 3 Weeks (Left arm radiculopathy. Per your note during his hospital stay: "if persistent symptoms beyond 3 - 4 weeks of medical tx, obtain EMG prior to further recommendations".) Chandrika Velasquez MD [Staff Physician] - 1 Week (Macrocytosis/Thrombocytopenia secondary to Cirrhosis/Alcohol Excess. B12/Folate levels normal.) Neil Rush MD [Primary Care Provider] - Disposition: HOME - Home Medications Comprehensive Discharge Medication List: Ambulatory Orders Furosemide [Lasix] 40 mg PO DAILY 09/03/17 Tamsulosin HCl 0.4 mg PO DAILY 09/03/17 Zolpidem Tartrate [Ambien] 5 mg PO HS 09/03/17 oxyCODONE HCL [Roxicodone -] 30 mg PO Q6H 09/03/17 metFORMIN HCL [Metformin HCl] 500 mg PO BIDAC #30 tablet 02/20/18 Gabapentin 600 mg PO TID 05/28/18 Spironolactone [Aldactone -] 25 mg PO DAILY 05/28/18 Duloxetine HCl 30 mg PO DAILY 11/18/18 Ergocalciferol (Vitamin D2) [Vitamin D2] 50,000 unit PO WEEKLY 11/18/18 Folic Acid - 1 mg PO DAILY #30 tablet 11/19/18 Thiamine HCl [Vitamin B1 -] 100 mg PO DAILY #30 tablet 11/19/18 Cyclobenzaprine HCl [Flexeril -] 10 mg PO TID 10/30/19 levETIRAcetam [Keppra -] 1,250 mg PO TID 10/30/19 Pantoprazole Sodium [Protonix] 40 mg PO ASDIR 11/01/19 Lactulose [Cephulac -] 30 gm PO TID #2700 ml 11/05/19 Pregabalin [Lyrica -] 50 mg PO BID #60 capsule MDD 100 07/24/20 This patient is new to me today: No Emergency Visit: Yes ED Registration Date: 10/30/19 Care time: The patient presented to the Emergency Department on the above date and was hospitalized for further evaluation of their emergent condition. Critical Care patient: No - Discharge Referral Referred to [facility] No ATTENDING PHYSICIAN STATEMENT I saw and evaluated the patient. I reviewed the resident's note and discussed the case with the resident. I agree with the resident's findings and plan as documented. SUBJECTIVE: OBJECTIVE: ASSESSMENT AND PLAN:
== END 2019-11-05 18:52 | disposition home or self-care (01) | DRG 347 ==
LOC: JER 04:26 → JERBED 06:44 → UNDOADMOB 06:44 → INTOOBSV 06:44 → OBSVTOIN 09:13 → JERBED 09:13 → J4S 16:52
PROVIDERS: ATTEND Internal Medicine
PROC: HZ2ZZZZ Detoxification Services for Substance Abuse Treatment (ICD-10-PCS; principal; 2019-10-30)
DX: M51.17 Intervertebral disc disorders with radiculopathy, lumbosacral region (principal); F10.239 Alcohol dependence with withdrawal, unspecified; I10 Essential (primary) hypertension; E78.5 Hyperlipidemia, unspecified; N40.0 Benign prostatic hyperplasia without lower urinary tract symptoms; D75.89 Other specified diseases of blood and blood-forming organs; F12.90 Cannabis use, unspecified, uncomplicated; E11.9 Type 2 diabetes mellitus without complications; R60.0 Localized edema; E66.3 Overweight; Z68.28 Body mass index [BMI] 28.0-28.9, adult; F41.8 Other specified anxiety disorders; E87.6 Hypokalemia; G40.909 Epilepsy, unspecified, not intractable, without status epilepticus; Y90.8 Blood alcohol level of 240 mg/100 ml or more; K72.90 Hepatic failure, unspecified without coma; G31.9 Degenerative disease of nervous system, unspecified; F11.90 Opioid use, unspecified, uncomplicated; S34.21XA Injury of nerve root of lumbar spine, initial encounter; K70.30 Alcoholic cirrhosis of liver without ascites; K70.10 Alcoholic hepatitis without ascites; K86.1 Other chronic pancreatitis; E88.09 Other disorders of plasma-protein metabolism, not elsewhere classified; E83.42 Hypomagnesemia; E83.39 Other disorders of phosphorus metabolism
CPT/HCPCS: 36415; 70551-TC; 71045-TC-FY; 72141-TC; 73030-TC-LT-FY; 74183-TC; 80048; 80053; 80076; 80307; 81003; 82105; 82140; 82248; 82550; 82553; 82607; 82746; 82962; 82977; 83690; 83735; 84100; 84132; 84439; 84443; 84484; 85025; 85027; 85610; 87086; 93005; 93010; 93306-TC; 97116-GP; 97161-GP; 99285-25; J1644; U0003

== ENCOUNTER 2020-05-03 19:30 | Emergency (ER) | payer OTHER ==
[2020-05-03 19:44] VITALS: BP 130/77; PULSE 107; TEMP 99.4; BMI 29.8
[2020-05-03] MEDS ORDERED: chlordiazePOXIDE HCL 25 MG CAPSULE PO ONE (21:52)
[2020-05-03 21:56] LABS: BASO % 0.8 % (0-2.0); EOS % 0.1 % (0-4.5); HEMATOCRIT 32.7 % (35.4-49); HEMOGLOBIN 11.1 GM/dl (11.7-16.9); LYMPH % 5.7 % (8-40); MCH 34.5 pg (25.7-33.7); MEAN CELL VOLUME 101.6 fl (80-96); MONO % 13.6 % (3.8-10.2); NEUT % 79.8 % (42.8-82.8); PLATELET COUNT 87 K/MM3 (134-434); RBC 3.21 M/mm3 (4.00-5.60); RDW 14.7 % (11.9-15.9); WHITE BLOOD COUNT 5.9 K/mm3 (4.0-10.8)
[2020-05-03 22:10] LABS: ALBUMIN 3.1 g/dl (3.4-5.0); BILIRUBIN,TOTAL 8.7 mg/dl (0.2-1); CALCIUM 8.3 mg/dl (8.5-10); CREATININE 0.5 mg/dl (0.55-1.3); POTASSIUM 3.8 mmol/L (3.5-5.1); TOT PROT 6.9 g/dl (6.4-8.2)
[2020-05-03 22:12] LABS: INR 1.75 (0.82-1.09); PROTHROMBIN TIME (PATIENT) 18.9 SEC (10.2-13.0)
[2020-05-03] MEDS ORDERED: chlordiazePOXIDE HCL 25 MG CAPSULE ONE (22:27)
[2020-05-04] MEDS ORDERED: ACETAMINOPHEN 325 MG TABLET (FP) PO ONE (01:48)
[2020-05-04] MEDS ORDERED: ACETAMINOPHEN 325 MG TABLET (FP) ONE (01:54)
== END 2020-05-04 02:39 | disposition home or self-care (01) ==
LOC: FER 19:30
DX: S30.1XXA Contusion of abdominal wall, initial encounter (principal); F10.10 Alcohol abuse, uncomplicated
CPT/HCPCS: 36415; 70450-TC; 71046-TC-FY; 71260-TC; 74177-TC; 80053; 84484; 85025; 85610; 85730; 86850; 86900; 86901; 93005; 99285-25

== ENCOUNTER 2020-12-30 13:17 | Emergency (ER) | payer OTHER ==
[2020-12-30 13:43] VITALS: TEMP 97.4; BMI 28.5
[2020-12-30] MEDS ORDERED: FOLIC ACID INJECTION - 1 MG, THIAMINE HCL 100 MG, MULTIVIT INJECTION ADULT 10 ML in SOD... IVPB ONE (16:32)
[2020-12-30] MEDS ORDERED: LACTATED RINGERS SOLUTION 1000 ML INFUS.BAG IV ONE ×2 (17:13→22:07)
[2020-12-30] MEDS ORDERED: diazePAM 5 MG TABLET PO ONE (17:40)
[2020-12-30 17:47] LABS: BASO % 0.6 % (0-2.0); EOS % 1.1 % (0-4.5); HEMATOCRIT 46.1 % (35.4-49); LYMPH % 23.1 % (8-40); MCH 34.9 pg (25.7-33.7); MCHC 34.6 g/dl (32.0-35.9); MEAN CELL VOLUME 100.7 fl (80-96); MEAN PLT VOLUME 7.6 fl (7.5-11.1); MONO % 9.5 % (3.8-10.2); NEUT % 65.7 % (42.8-82.8); PLATELET COUNT 111 10^3/uL (134-434); RBC 4.58 M/mm3 (4.00-5.60); RDW 16.7 % (11.9-15.9); WHITE BLOOD COUNT 5.7 K/mm3 (4.0-10.0)
[2020-12-30 18:07] LABS: CHLORIDE 109 mmol/L (98-107); SODIUM 145 mmol/L (136-145)
[2020-12-30 18:10] LABS: ANION GAP 7 MMOL/L (8-16); CALCIUM 8.4 mg/dL (8.5-10.1); CO2 29 mmol/L (21-32)
[2020-12-30 18:11] LABS: ALBUMIN 2.8 g/dl (3.4-5.0); BLOOD UREA NITROGEN 3.8 mg/dL (7-18); GLUCOSE,RANDOM 126 mg/dL (74-106)
[2020-12-30 18:14] LABS: CREATININE 0.7 mg/dL (0.55-1.3); SGOT/AST 101 U/L (15-37); SGPT/ALT 54 U/L (13-61)
[2020-12-30 18:15] LABS: BILIRUBIN,TOTAL 4.4 mg/dL (0.2-1); TOT PROT 8.6 g/dl (6.4-8.2)
[2020-12-30 18:16] LABS: ALK PHOS 192 U/L (45-117)
[2020-12-30] MEDS ORDERED: oxyCODONE HCL 5 MG TABLET PO ONE (18:26)
[2020-12-30 18:33] LABS: LIPASE 639 U/L (73-393)
[2020-12-30] MEDS ORDERED: diazePAM 5 MG TABLET ONE (18:33)
[2020-12-30] MEDS ORDERED: oxyCODONE HCL 5 MG TABLET ONE (18:34)
[2020-12-30] MEDS ORDERED: levETIRAcetam 500 MG TABLET (FP) PO ONE ×2 (19:32→20:14)
[2020-12-31 00:03] VITALS: BP 115/74; PULSE 89
== END 2020-12-31 00:03 | disposition left against medical advice (07) ==
LOC: JER 13:17
DX: F10.10 Alcohol abuse, uncomplicated (principal); R41.82 Altered mental status, unspecified
CPT/HCPCS: 36415; 71045-TC-FY; 74177-TC; 80053; 82550; 83690; 84484; 85025; 93005; 93010; 99284-25; Q9967

== ENCOUNTER 2021-04-22 15:50 | Emergency (ER) | payer OTHER ==
[2021-04-22 16:17] VITALS: BP 148/100; PULSE 88; TEMP 99; BMI 30.4
[2021-04-22] MEDS ORDERED: LACTATED RINGERS SOLUTION 1000 ML INFUS.BAG IV ONE (16:27)
[2021-04-22] MEDS ORDERED: ACETAMINOPHEN 1000 MG/100 ML BAG IVPB ONE (16:27)
[2021-04-22] MEDS ORDERED: ONDANSETRON 4 MG/2 ML VIAL IVPUSH ONE (16:37)
[2021-04-22] MEDS ORDERED: ACETAMINOPHEN INJECTION 100 ML IVPB ONE (16:39)
[2021-04-22] MEDS ORDERED: ONDANSETRON 4 MG/2 ML VIAL ONE (16:39)
[2021-04-22] MEDS ORDERED: chlordiazePOXIDE HCL 10 MG CAPSULE PO ONE (16:59)
[2021-04-22] MEDS ORDERED: chlordiazePOXIDE HCL 25 MG CAPSULE PO ONE (17:09)
[2021-04-22] MEDS ORDERED: chlordiazePOXIDE HCL 25 MG CAPSULE ONE (17:10)
[2021-04-22 17:21] LABS: EPITHELIAL CELLS RARE /hpf
[2021-04-22 17:27] LABS: ALBUMIN 3.2 g/dl (3.4-5.0); BILIRUBIN,TOTAL 9.4 mg/dl (0.2-1); CALCIUM 8.5 mg/dl (8.5-10); CREATININE 0.4 mg/dl (0.55-1.3); MAGNESIUM 1.2 mg/dL (1.8-2.4); PHOSPHOROUS 2.6 mg/dl (2.5-4.9); TOT PROT 7.4 g/dl (6.4-8.2)
[2021-04-22] MEDS ORDERED: SODIUM CHLORIDE 0.9% 500 ML INFUS.BAG IV ONE (18:16)
[2021-04-22 19:03] LABS: HEMATOCRIT 40.3 % (35.4-49); HEMOGLOBIN 14.1 GM/dL (11.7-16.9); MCH 34.8 pg (25.7-33.7); MEAN CELL VOLUME 99.5 fl (80-96); MEAN PLT VOLUME 7.5 fl (7.5-11.1); PLATELET COUNT 117 10^3/uL (134-434); RBC 4.06 M/mm3 (4.00-5.60); RDW 14.1 % (11.9-15.9)
== END 2021-04-22 18:55 | disposition left against medical advice (07) ==
LOC: FER 15:50
PROC: 3E033GC Introduction of Other Therapeutic Substance into Peripheral Vein, Percutaneous Approach (ICD-10-PCS; principal; 2021-04-22)
DX: R07.81 Pleurodynia (principal); E80.6 Other disorders of bilirubin metabolism; E87.8 Other disorders of electrolyte and fluid balance, not elsewhere classified
CPT/HCPCS: 36415; 70450-TC; 71101-TC-RT-FY; 80053; 81003; 81015; 83690; 83735; 84100; 85027; 87086; 93005; 96374; 96375; 99285-25

== ENCOUNTER 2021-08-03 19:03 | Inpatient (IN) | payer OTHER ==
[2021-08-03 19:11] VITALS: BMI 28.5
[2021-08-03] MEDS ORDERED: MAG HYDROX/AL HYDROX/SIMETH -MYLANTA- ORAL SUSPENSION PO ONE (19:41)
[2021-08-03] MEDS ORDERED: SODIUM CHLORIDE 1,000 ML IV STA (19:41)
[2021-08-03] MEDS ORDERED: LIDOCAINE VISCOUS 2% ORAL/TOP 15 ML UNIT-DOSE CUP MM ONE (19:42)
[2021-08-03] MEDS ORDERED: LIDOCAINE VISCOUS 2% ORAL/TOP 15 ML UNIT-DOSE CUP ONE (19:44)
[2021-08-03] MEDS ORDERED: MAG HYDROX/AL HYDROX/SIMETH 30 ML UNIT-DOSE CUP ONE (19:45)
[2021-08-03] MEDS ORDERED: morphine CARPU-JECT 2 MG/1 ML DISP.SYRIN IVPUSH ONE ×2 (20:11→23:25)
[2021-08-03] MEDS ORDERED: morphine SULFATE 4 MG/ML VIAL ONE ×2 (20:13→22:19)
[2021-08-03 20:15] LABS: HEMATOCRIT 45.7 % (35.4-49); HEMOGLOBIN 15.7 G/dL (11.7-16.9); INR 1.65 (0.83-1.09); MCH 34.9 pg (25.7-33.7); MCHC 34.2 g/dl (32.0-35.9); MEAN CELL VOLUME 102.1 fl (80-96); MEAN PLT VOLUME 8.2 fl (7.5-11.1); PLATELET COUNT 159.8 10^3/uL (134-434); PROTHROMBIN TIME (PATIENT) 19.1 SEC (9.7-13.0); RBC 4.48 10^6/uL (4.00-5.60); RDW 15.9 % (11.9-15.9); WHITE BLOOD COUNT 13.3 10^3/uL (4.0-10.8)
[2021-08-03 20:23] LABS: BILIRUBIN,TOTAL 2.9 mg/dl (0.2-1); CALCIUM 8.6 mg/dl (8.5-10); CREATININE 0.7 mg/dl (0.55-1.3); TOT PROT 7.3 g/dl (6.4-8.2)
[2021-08-03] MEDS ORDERED: morphine CARPU-JECT 4 MG/1 ML DISP.SYRIN IVPUSH ONE (22:17)
[2021-08-03] MEDS ORDERED: PANTOPRAZOLE SODIUM 40 MG VIAL IVPB ONE (22:48)
[2021-08-03] MEDS ORDERED: PANTOPRAZOLE SODIUM 40 MG VIAL ONE (22:50)
[2021-08-04] MEDS ORDERED: morphine CARPU-JECT 2 MG/1 ML DISP.SYRIN IVPUSH ONE (00:28)
[2021-08-04] MEDS ORDERED: morphine SULFATE 4 MG/ML VIAL ONE ×2 (00:32→03:22)
[2021-08-04] MEDS ORDERED: KETOROLAC TROMETHAMINE 15 MG/ML VIAL IVPUSH ONE (02:08)
[2021-08-04] MEDS ORDERED: KETOROLAC TROMETHAMINE 15 MG/ML VIAL ONE (02:11)
[2021-08-04] MEDS: DEXTROSE 5%-0.45% SALINE 1,000 ML IV SCH ×2 (02:15→05:29)
[2021-08-04] MEDS ORDERED: morphine CARPU-JECT 4 MG/1 ML DISP.SYRIN IVPUSH ONE (03:20)
[2021-08-04] MEDS: SODIUM CHLORIDE 1,000 ML IV SCH ×2 (07:12→21:29)
[2021-08-04] MEDS: INSULIN SLIDING SCALE (NOVOLOG) 1 VIAL SQ SCH ×2 (07:13→11:17)
[2021-08-04] MEDS ORDERED: HEPARIN NA (PORCINE) 5,000 UNITS/ML 1ML VIAL SQ SCH (10:00)
[2021-08-04] MEDS: PANTOPRAZOLE SODIUM 40 MG VIAL IVPUSH SCH (10:05)
[2021-08-04 10:16] LABS: BASO % 0.9 % (0-2.0); EOS % 2.9 % (0-4.5); HEMATOCRIT 39.2 % (35.4-49); HEMOGLOBIN 13.5 GM/dL (11.7-16.9); LYMPH % 24.7 % (8-40); MCH 34.7 pg (25.7-33.7); MCHC 34.5 g/dl (32.0-35.9); MEAN CELL VOLUME 100.5 fl (80-96); MEAN PLT VOLUME 8.1 fl (7.5-11.1); MONO % 14.8 % (3.8-10.2); NEUT % 56.7 % (42.8-82.8); PLATELET COUNT 114 10^3/uL (134-434); RDW 14.6 % (11.9-15.9); WHITE BLOOD COUNT 6.5 K/mm3 (4.0-10.0)
[2021-08-04 10:25] LABS: CALCIUM 8.1 mg/dL (8.5-10.1)
[2021-08-04 10:26] LABS: ALBUMIN 2.8 g/dl (3.4-5.0); BLOOD UREA NITROGEN 9.9 mg/dL (7-18); MAGNESIUM 1.8 mg/dL (1.8-2.4)
[2021-08-04 10:29] LABS: CREATININE 0.6 mg/dL (0.55-1.3); PHOSPHOROUS 3.9 mg/dL (2.5-4.9)
[2021-08-04 10:31] LABS: BILIRUBIN,TOTAL 2.9 mg/dL (0.2-1)
[2021-08-04] MEDS ORDERED: PATIENT'S OWN MEDICATION (NON-FORMULARY) (Oxycodone Hcl [Oxycontin] 30 MG Tab.Er.12h) PO PRN (12:56)
[2021-08-04] MEDS: LIDOCAINE 5% TOPICAL PATCH TP SCH (13:11)
[2021-08-04] MEDS: oxyCODONE HCL 5 MG TABLET PO PRN ×2 (13:38→19:41)
[2021-08-04] MEDS: TAMSULOSIN HCL 0.4 MG CAP PO SCH (13:41)
[2021-08-04] MEDS: levETIRAcetam 500 MG TABLET (FP) PO SCH ×2 (13:41→21:26)
[2021-08-04] MEDS: GABAPENTIN 300 MG CAPSULE PO SCH ×2 (13:41→21:27)
[2021-08-04] MEDS: busPIRone HCL 10 MG TABLET (FP) PO SCH ×2 (13:42→21:32)
[2021-08-04] MEDS: FUROSEMIDE 40 MG TABLET (FP) PO SCH (13:52)
[2021-08-04] MEDS ORDERED: PENTOXIFYLLINE 400 MG TABLET.ER PO SCH (17:30)
[2021-08-04] MEDS: FAMOTIDINE/PF 20 MG/2 ML VIAL IVPB SCH (21:27)
[2021-08-04] MEDS: LIDOCAINE PATCH REMOVAL MC SCH (21:27)
[2021-08-04] MEDS: ZOLPIDEM TARTRATE 5 MG TABLET PO PRN (21:27)
[2021-08-04] MEDS ORDERED: FAMOTIDINE 20 MG/50 ML IVPB 20 MG/50 ML MG IVPB SCH (22:00)
[2021-08-05] MEDS: oxyCODONE HCL 5 MG TABLET PO PRN ×3 (04:42→19:01)
[2021-08-05] MEDS: GABAPENTIN 300 MG CAPSULE PO SCH ×3 (06:07→21:08)
[2021-08-05] MEDS: FUROSEMIDE 40 MG TABLET (FP) PO SCH (09:47)
[2021-08-05] MEDS: TAMSULOSIN HCL 0.4 MG CAP PO SCH (09:47)
[2021-08-05] MEDS: LIDOCAINE 5% TOPICAL PATCH TP SCH (09:47)
[2021-08-05] MEDS: levETIRAcetam 500 MG TABLET (FP) PO SCH ×2 (09:47→21:08)
[2021-08-05] MEDS: PANTOPRAZOLE SODIUM 40 MG VIAL IVPUSH SCH (09:47)
[2021-08-05] MEDS: busPIRone HCL 10 MG TABLET (FP) PO SCH ×2 (09:47→21:08)
[2021-08-05] MEDS: FAMOTIDINE/PF 20 MG/2 ML VIAL IVPB SCH ×2 (10:04→21:07)
[2021-08-05 13:10] LABS: BASO % 1.1 % (0-2.0); EOS % 3.8 % (0-4.5); HEMATOCRIT 40.2 % (35.4-49); HEMOGLOBIN 13.4 GM/dL (11.7-16.9); MCHC 33.4 g/dl (32.0-35.9); MEAN CELL VOLUME 101.9 fl (80-96); MEAN PLT VOLUME 8.6 fl (7.5-11.1); MONO % 18.9 % (3.8-10.2); NEUT % 53.2 % (42.8-82.8); PLATELET COUNT 138 10^3/uL (134-434); RBC 3.94 M/mm3 (4.00-5.60); RDW 14.5 % (11.9-15.9); WHITE BLOOD COUNT 5.1 K/mm3 (4.0-10.0)
[2021-08-05 13:34] LABS: CALCIUM 8.2 mg/dL (8.5-10.1)
[2021-08-05 13:35] LABS: ALBUMIN 2.9 g/dl (3.4-5.0); BLOOD UREA NITROGEN 8.1 mg/dL (7-18); MAGNESIUM 1.8 mg/dL (1.8-2.4)
[2021-08-05 13:38] LABS: CREATININE 0.6 mg/dL (0.55-1.3); PHOSPHOROUS 4.2 mg/dL (2.5-4.9)
[2021-08-05 13:39] LABS: BILIRUBIN,TOTAL 2.6 mg/dL (0.2-1)
[2021-08-05] MEDS: SODIUM CHLORIDE 1,000 ML IV SCH (14:43)
[2021-08-05] MEDS ORDERED: PHYTONADIONE 5 MG TABLET PO ONE (15:01)
[2021-08-05 16:32] LABS: INR 1.83 (0.83-1.09); PROTHROMBIN TIME (PATIENT) 21.2 SEC (9.7-13.0)
[2021-08-05 16:34] LABS: ACTIVATED PTT 36.5 SECONDS (25.2-36.5)
[2021-08-05] MEDS: ZOLPIDEM TARTRATE 5 MG TABLET PO PRN (21:08)
[2021-08-05] MEDS: LIDOCAINE PATCH REMOVAL MC SCH (21:08)
[2021-08-06] MEDS: oxyCODONE HCL 5 MG TABLET PO PRN ×4 (00:58→18:08)
[2021-08-06] MEDS ORDERED: hydrOXYzine PAMOATE 25 MG CAPSULE (FP) PO ONE (01:07)
[2021-08-06] MEDS: GABAPENTIN 300 MG CAPSULE PO SCH ×2 (06:22→13:33)
[2021-08-06 08:50] LABS: HEMATOCRIT 36.2 % (35.4-49); HEMOGLOBIN 12.5 GM/dL (11.7-16.9); MCHC 34.5 g/dl (32.0-35.9); MEAN CELL VOLUME 101.4 fl (80-96); MEAN PLT VOLUME 8.1 fl (7.5-11.1); PLATELET COUNT 103 10^3/uL (134-434); RBC 3.57 M/mm3 (4.00-5.60); RDW 14.8 % (11.9-15.9); WHITE BLOOD COUNT 3.3 K/mm3 (4.0-10.0)
[2021-08-06 08:54] LABS: ADD RBC MORPHOLOGY YES
[2021-08-06 09:00] LABS: INR 1.72 (0.83-1.09); PROTHROMBIN TIME (PATIENT) 19.9 SEC (9.7-13.0)
[2021-08-06 09:02] LABS: ACTIVATED PTT 37.3 SECONDS (25.2-36.5)
[2021-08-06 09:13] LABS: CALCIUM 8.1 mg/dL (8.5-10.1)
[2021-08-06 09:14] LABS: ALBUMIN 2.6 g/dl (3.4-5.0); BLOOD UREA NITROGEN 9.3 mg/dL (7-18); MAGNESIUM 1.8 mg/dL (1.8-2.4)
[2021-08-06 09:17] LABS: CREATININE 0.6 mg/dL (0.55-1.3); PHOSPHOROUS 3.9 mg/dL (2.5-4.9)
[2021-08-06 09:19] LABS: BILIRUBIN,TOTAL 2.2 mg/dL (0.2-1); TOT PROT 6.2 g/dl (6.4-8.2)
[2021-08-06] MEDS: LIDOCAINE 5% TOPICAL PATCH TP SCH (10:12)
[2021-08-06] MEDS: levETIRAcetam 500 MG TABLET (FP) PO SCH (10:13)
[2021-08-06] MEDS: TAMSULOSIN HCL 0.4 MG CAP PO SCH (10:13)
[2021-08-06] MEDS: busPIRone HCL 10 MG TABLET (FP) PO SCH (10:13)
[2021-08-06] MEDS: FUROSEMIDE 40 MG TABLET (FP) PO SCH (10:14)
[2021-08-06] MEDS: PANTOPRAZOLE SODIUM 40 MG VIAL IVPUSH SCH (10:14)
[2021-08-06] MEDS: FAMOTIDINE/PF 20 MG/2 ML VIAL IVPB SCH (10:14)
[2021-08-06 10:19] LABS: ANISOCYTOSIS 0; HELMET CELLS 0; HOWELL-JOLLY BODIES 0; MACROCYTOSIS 0; OVALOCYTE 0; ROULEAU 0; SICKELED CELLS 0; TARGET CELLS 0; TEAR DROP CELLS 0; TOXIC GRANULATION 0
[2021-08-06 13:58] VITALS: BP 123/71; PULSE 85; TEMP 98.1
== END 2021-08-06 21:15 | disposition home or self-care (01) | DRG 241 ==
LOC: FER 19:03 → J5S 08-04 04:30
PROVIDERS: ADMIT Internal Medicine; ATTEND Internal Medicine
DX: K29.80 Duodenitis without bleeding (principal); D69.6 Thrombocytopenia, unspecified; K76.6 Portal hypertension; G62.9 Polyneuropathy, unspecified; K86.1 Other chronic pancreatitis; K81.1 Chronic cholecystitis; D72.829 Elevated white blood cell count, unspecified; E78.5 Hyperlipidemia, unspecified; F10.10 Alcohol abuse, uncomplicated; F17.200 Nicotine dependence, unspecified, uncomplicated; I10 Essential (primary) hypertension; K74.60 Unspecified cirrhosis of liver; R10.13 Epigastric pain; R11.2 Nausea with vomiting, unspecified; R63.4 Abnormal weight loss; R68.81 Early satiety; Z98.84 Bariatric surgery status
CPT/HCPCS: 36415; 71045-TC-FY; 74177-TC; 74182-TC; 80048; 80053; 80076; 80307; 81003; 82103; 82962; 83516; 83690; 83735; 84100; 85025; 85610; 85730; 86038; 86705; 86708; 86850; 86900; 86901; 87040; 87086; 87340; 87517; 87522; 93005; 99285-25; C9803-CS; Q9967; U0003; U0005

== ENCOUNTER 2022-02-15 19:25 | Emergency (ER) | payer OTHER ==
[2022-02-15 20:25] VITALS: BP 136/96; PULSE 105; RESP 18; TEMP 99; BMI 28.5
[2022-02-15] MEDS ORDERED: FOLIC ACID INJECTION - 1 MG, THIAMINE HCL 100 MG, MULTIVIT INJECTION ADULT 10 ML in SOD... IVPB ONE (20:39)
[2022-02-15] MEDS ORDERED: LOPERAMIDE HCL 2 MG CAPSULE PO ONE (20:39)
[2022-02-15] MEDS ORDERED: LORazepam 2 MG/ML SDV VIAL IVPB ONE (20:42)
[2022-02-15] MEDS ORDERED: LORazepam 1 MG TABLET PO ONE (21:21)
[2022-02-15] MEDS ORDERED: FOLIC ACID 5 MG/1 ML ONE (21:23)
[2022-02-15] MEDS ORDERED: THIAMINE HCL 200 MG/2 ML VIAL ONE (21:23)
[2022-02-15] MEDS ORDERED: MULTIVIT INJ. ADULT COMBO WITH VIT K 1 COMBO 10 ML VIAL IV ONE (21:26)
[2022-02-15] MEDS ORDERED: LORazepam 0.5 MG TABLET ONE (21:31)
[2022-02-15] MEDS ORDERED: LOPERAMIDE HCL 2 MG CAPSULE ONE (21:31)
[2022-02-15] MEDS ORDERED: ACETAMINOPHEN 500 MG TABLET (FP) ONE (23:05)
[2022-02-15] MEDS ORDERED: AMOX TR/POT CLAV 875MG/125MG TABLETS (FP) ONE (23:09)
== END 2022-02-15 23:42 | disposition home or self-care (01) ==
LOC: FER 19:25
PROC: 3E0333Z Introduction of Anti-inflammatory into Peripheral Vein, Percutaneous Approach (ICD-10-PCS; principal; 2022-02-15)
PROC: 3E03329 Introduction of Other Anti-infective into Peripheral Vein, Percutaneous Approach (ICD-10-PCS; 2022-02-15)
PROC: 3E033GC Introduction of Other Therapeutic Substance into Peripheral Vein, Percutaneous Approach (ICD-10-PCS; 2022-02-15)
PROC: 3E033GC Introduction of Other Therapeutic Substance into Peripheral Vein, Percutaneous Approach (ICD-10-PCS; 2022-02-15)
DX: F10.10 Alcohol abuse, uncomplicated (principal)
CPT/HCPCS: 99284-25